=== PATIENT | female | born 1955 | race Caucasian/White ===

== ENCOUNTER 2023-05-18 10:24 | Outpatient (OUT) | payer MEDICARE, BC, OTHER, SELFPAY ==
[2023-05-18 10:46] LABS: Estimated Average Glucose 128 mg/dL; Glycohemoglobin A1C 6.1 % (4.5-6.2)
[2023-05-18 11:17] LABS: Eosinophils Absolute Auto 0.1 10^3/uL (0.0-0.7); Eosinophils Percent Auto 1.7 % (0.9-7.0); Hemoglobin 15.5 g/dL (12.0-16.0); Immature Granulocytes Abs Auto 0.01 10^3/uL (0.00-0.03); Immature Granulocytes Pct Auto 0.2 % (0.0-0.5); Lymphocytes Absolute Auto 0.5 10^3/uL (1.2-3.8); Mean Corpuscular HGB Conc 32.3 g/dL (29.9-35.2); Mean Corpuscular Volume 86.8 fL (81.0-99.0); Mean Platelet Volume 9.6 fL (9.5-13.5); Monocytes Absolute Auto 0.4 10^3/uL (0.3-0.8); Neutrophils Percent Auto 74.1 % (43.0-75.0); Platelet Count 264 10^3/uL (150-450); Red Blood Count 5.53 10^6/uL (4.20-5.40); Red Cell Distribution Width 14.6 % (11.0-15.0)
[2023-05-18 11:40] LABS: Alanine Aminotransferase 19 U/L (14-59); Albumin Level 3.6 g/dL (3.4-5.0); Alkaline Phosphatase 69 U/L (46-116); Anion Gap 12.3; Aspartate Amino Transferase 10 U/L (15-37); BUN Creatinine Ratio 12.5; Bilirubin Total 0.5 mg/dL (0.2-1.0); Calcium 10.2 mg/dL (8.5-10.1); Carbon Dioxide 28.4 mmol/L (21.0-32.0); Chloride 101 mmol/L (98-107); Chol HDL Ratio 4.1; Cholesterol 180 mg/dL (<=200); Estimated GFR (African America >60 (>=60); Estimated GFR (Non-African Ame >60 (>=60); Globulin 3.5 g/dL; Glucose 115 mg/dL (74-106); HDL Cholesterol 44 mg/dL (40-60); Potassium 4.7 mmol/L (3.5-5.1); Sodium 137 mmol/L (136-145); Thyroid Stimulating Hormone 1.518 uIU/mL (0.358-3.740); Total Protein 7.1 g/dL (6.4-8.2); Triglycerides 184 mg/dL (<=150); VLDL CHOLESTEROL 36.8 mg/dL
[2023-05-18 11:59] LABS: Free T4 1.46 ng/dL (0.76-1.46)
== END 2023-05-18 10:25 | disposition home or self-care (01) ==
LOC: LAB 10:24
PROVIDERS: PCP Family Medicine; Visit Provider Family Medicine
DX: I10 Essential (primary) hypertension (principal); R73.01 Impaired fasting glucose; E03.9 Hypothyroidism, unspecified; E83.52 Hypercalcemia
CPT/HCPCS: 36415; 80053; 80061; 83036; 83970; 84439; 84443; 85025

== ENCOUNTER 2024-01-10 11:34 | Outpatient (OUT) | payer MEDICARE, BC, OTHER, SELFPAY ==
[2024-01-10 12:19] LABS: Estimated Average Glucose 123 mg/dL; Glycohemoglobin A1C 5.9 % (4.5-6.2)
[2024-01-10 12:32] LABS: Thyroid Stimulating Hormone 1.183 uIU/mL (0.358-3.740)
[2024-01-11 16:10] LABS: Albumin 3.8 g/dL (2.9-4.4); Alpha-1-Globulin 0.2 g/dL (0.0-0.4); Alpha-2-Globulin 0.8 g/dL (0.4-1.0); Gamma Globulin 0.8 g/dL (0.4-1.8); Protein, Total 6.6 g/dL (6.0-8.5)
== END 2024-01-10 11:35 | disposition home or self-care (01) ==
LOC: LAB 11:34
PROVIDERS: PCP Family Medicine; Visit Provider Psychiatry & Neurology Neurology
DX: R26.89 Other abnormalities of gait and mobility (principal); R53.1 Weakness
CPT/HCPCS: 36415; 82607; 82746; 83036; 84155; 84165; 84443

== ENCOUNTER 2024-02-20 15:04 | Outpatient (OUT) | payer MEDICARE, BC, OTHER, SELFPAY ==
--- NOTE | 2024-02-20 | MR_ITS ---
[address] [address] Patient Name: CECI BURROWS MRN: [id number] date: 1955 Sex: F Assigned Patient Location: MRI Current Patient Location: Accession/Order Number: [id number] Exam Date: 02/20/2024 16:19 Report Date: 02/21/2024 07:22 At the request of: PRINCESS DOUGHERTY Procedure: MR cervical spine wo con EXAMINATION: MR cervical spine wo con HISTORY: Balance disorder R26.89, Ataxia R27.0, Weakness R53.1 COMPARISON: No relevant comparison available. TECHNIQUE: A variety of imaging planes and parameters were utilized for visualization of suspected pathology. FINDINGS: CRANIOCERVICAL AREA: Normal foramen magnum with no Chiari malformation. PARASPINAL AREA: Normal with no visible mass. BONES: Normal alignment with no acute fracture or spondylolisthesis. Mild to moderate diffuse degenerative spondylosis and facet osteoarthropathy CORD: Normal caliber, contour, and signal intensity. Other: Degenerative changes with cystic appearance of the left sternoclavicular joint CERVICAL DISC LEVELS: C2-C3: Moderate degenerative disc disease is present without visible neural impingement. C3-C4: Disc space narrowing and desiccation. Mild diffuse disc/osteophyte complex and facet osteoarthropathy. Narrowing of the central canal to 8.2 mm in AP dimension. Mild bilateral foraminal stenosis C4-C5: Disc desiccation. Bilateral facet osteoarthropathy. Central Canal narrowing down to 8 mm in AP dimension. Mild right and moderate left foraminal stenosis C5-C6: Moderate to severe disc space narrowing with endplate sclerosis. Moderate diffuse disc/osteophyte complex and facet osteoarthropathy. Narrowing of the central canal to 6.9 mm in AP dimension. Moderate bilateral foraminal stenosis C6-C7: Moderate to severe disc space narrowing with endplate sclerosis. Mild to moderate diffuse disc/osteophyte complex and facet osteoarthropathy. Central canal narrowing to 8 mm. No foraminal stenosis C7-T1:. Moderate disc space narrowing and desiccation. No central or foraminal stenosis MR/MR cervical spine wo con IMPRESSION: Moderate degenerative changes resulting in central and foraminal stenosis at multiple levels as detailed above with congenitally small central canal Electronically authenticated by: LEXIE Ulrich: 02/21/2024 07:22
--- OUTSIDE RECORDS SUMMARY | 2024-02-20 15:22 | XMS_ITS | CCD ---
Author Organization [facility] Care Team Providers Care Sports Editor Name Role Phone CLAY, DR CAMILLE Powell Attending Unavailable WILLIAMSON, DR CAMILLE Powell Consulting Unavailable WILLIAMSON, DR CAMILLE Powell Primary Care Unavailable WILLIAMSON, DR CAMILLE Powell Admitting Unavailable CAMILLE WILLIAMSON Primary Care Physician Camille Williamson Cam, Gwyn Spencer Attending Unavailable Garcia, Gwyn T Admitting Unavailable Garcia, Gwyn T Referring Unavailable Garcia, Gwyn T Attending Unavailable Garcia, Gwyn T Admitting Unavailable Garcia, Gwyn T Referring Unavailable Garcia, Gwyn T Attending Unavailable Garcia, Gwyn T Admitting Unavailable Garcia, Gwyn T Referring Unavailable GARCIA, GWYN T Referring Unavailable GARCIA, GWYN T Attending Unavailable GARCIA, GWYN T Referring Unavailable PRINCESS DOUGHERTY Attending Unavailable Allergies Allergy Classification Reported Allergen(s) Allergy Type Date of Onset Reaction(s) Facility (1 source) No Known Medication Allergies; Translations: [No Known Medication Allergies] Propensity to adverse reactions (disorder) [facility] Repository Medications Current Medications Medication Drug Class(es) Dates Sig (Normalized) Sig (Original) acetaminophen 325 mg / HYDROcodone bitartrate 7.5 mg oral tablet (1 source) Opioid Agonist Start: 08-30-2022 take 1 tablet by mouth every six hours for pain acetaminophen-hyd rocodone 325 mg-7.5 mg oral tablet 1 tab(s), Oral, q6hr for pain, Refill(s) 0 Start Date: 08/30/22 Status: Ordered acetaminophen 325 mg / oxyCODONE hydrochloride 5 mg oral tablet (1 source) Opioid Agonist Start: 08-26-2022 take 1-2 tablets by mouth every four hours as needed for pain Percocet 5 mg-325 mg oral tablet See Instructions, 50 tab(s), Refill(s) 0, take one to two every 4 hours as needed for knee replacement pain, [id number], 160, cm, 12/12/22 5:49:00 EST, Height/Length Dosing, 114.3, kg, 08/09/22 5:49:00 EST, Weight Dosing Start Date: 08/26/22 Status: Ordered aspirin 325 mg oral tablet (6 sources) Platelet Aggregation Inhibitor, Nonsteroidal Anti-inflammatory Drug Start: 08-26-2022 End: 09-25-2022 take 1 tablet by mouth once daily aspirin 325 mg Tab 325 mg = 1 tab(s), Oral, Daily, Start the day after knee replacement surgery, X 30 day(s), # 30 tab(s), Refills(s) 0, [id number] 160, cm, 08/09/22 5:49:00 EST, Height/Length Dosing, 114.3, kg, 08/09/22 5:49:00 EST, Weight Dosing Start Date: 08/26/22 Stop Date: 09/25/22 Status: Ordered take 1 tablet by mouth once odalys y Aspir-Low 81 MG 1 tablet Orally Once a day Active docusate sodium 100 mg oral capsule (1 source) Start: 08-26-2022 take 1 capsule by mouth twice daily Colace 100 mg Cap 100 mg = 1 cap(s), Oral, BID, # 20 cap(s), Refills(s) 0, [id number] 160, cm, 08/09/22 5:49:00 EST, Height/Length Dosing, 114.3, kg, 08/09/22 5:49:00 EST, Weight Dosing Start Date: 08/26/22 Status: Ordered fluticasone propionate 0.05 mg/actuat metered dose nasal spray (1 source) Corticosteroid Start: 2024 take 1 spray(s) nasal route once daily Fluticasone Propionate Active 2 SPRAY INTRANASAL Daily 2024 12:00am administer into each nostril levothyroxine sodium 0.137 mg oral tablet (15 sources) l-Thyroxine Start: 01-18-2024 take 1 tablet by mouth once daily in the morning Levothyroxine Active 0 .ROUTE .COMPLEX January 18, 2024 12:30pm TAKE 1 TABLET BY MOUTH EVERY DAY IN THE MORNING ON AN EMPTY STOMACH Start: 01-18-2024 End: 01-18-2024 take 137 ug by mouth once daily Levothyroxine Disconti nued 137 MCG PO Daily January 18, 2024 12:00am January 18, 2024 12:31pm Start: 08-06-2022 take 1 tablet by luis m once daily levothyroxine 137 mcg (0.137 mg) Tab 137 mcg = 1 tab(s), Oral, Daily, Refills(s) 0, Thyroid Start Date: 08/06/22 Status: Ordered take 1 tablet by luis m once daily in the morning Levothyroxine Sodium 137 MCG 1 tablet in the morning on an empty stomach Orally Once a day for 90 days Active 24 hr metoprolol succinate 25 mg extended release oral tablet (14 sources) beta-Adrenergic Pao Start: 01-18-2024 take 25 mg by mouth once daily Metoprolol Succinate Active 25 MG PO Daily January 18, 2024 12:00am Start: 08-30-2022 take 1 tablet by luis m once daily metoprolol 25 mg ER Tab 25 mg = 1 tab(s), Oral, Daily, High blood pressure Start Date: 08/30/22 Status: Ordered oxyCODONE hydrochloride 5 mg oral tablet (5 sources) Opioid Agonist take 1 tablet by mouth every six hours oxyCODONE HCl 5 MG 1 tablet as needed Orally every 6 hrs Active Completed/Discontinued Medications Medication Drug Class(es) Dates Sig (Normalized) Sig (Original) diclofenac sodium 75 mg delayed release oral tablet (5 sources) Nonsteroidal Anti-inflammatory Drug take 1 tablet by mouth every twelve hours Diclofenac Sodium 75 MG 1 tablet as needed Orally Twice a day Not-Taking 24 hr venlafaxine 75 mg extended release oral capsule (20 sources) Serotonin and Norepinephrine Reuptake Inhibitor Start: 12-19-2023 End: 12-20-2023 take 1 capsule by mouth once daily at mealtime Venlafaxine Discontinued 0 .ROUTE .COMPLEX December 19, 2023 12:59pm December 20, 2023 12:09pm TAKE ONE CAPSULE BY MOUTH ONCE DAILY WITH FOOD FOR 30 DAYS Start: 12-19-2023 End: 12-20-2023 take 75 mg by mouth once daily Venlafaxine Discontinue d 75 MG PO Daily December 20, 2023 12:09pm December 20, 2023 12:26pm Start: 10-15-2022 take 1 capsule by mo [facility] every twenty-four hours Effexor XR 150 MG 1 capsule with food Orally Once a day for 30 day(s) Sep, Active Start: 09-16-2022 take 1 capsule by [facility] every twenty-four hours Effexor XR 75 MG 1 capsule with food Orally Once a day for 30 day(s) Aug, Active Problems Problem Classification Problem Date Documented Date Episodic/Chronic Anxiety disorders (20 sources) Mixed anxiety and depressive disorder; Translations: [Other specified anxiety disorders] Chronic Cancer of breast (1 source) History of malignant neoplasm of breast 08-06-2022 Episodic Diabetes mellitus without complication (14 sources) Impaired fasting glucose; Translations: [Impaired fasting glycemia] Onset: 05-25-2022 Episodic Essential hypertension (19 sources) Essential (primary) hypertension; Translations: [Essential hypertension] Onset: 05-20-2022 Chronic Osteoarthritis (3 sources) Osteoarthritis of knee; Translations: [Unilateral primary osteoarthritis, right knee] Onset: 08-26-2022 Chronic Other circulatory disease (12 sources) Elevated blood-pressure reading without diagnosis of hypertension; Translations: [Elevated blood-pressure reading, without diagnosis of hypertension] Episodic Other ear and sense organ disorders (12 sources) Hearing loss; Translations: [Unspecified hearing loss, bilateral] Chronic Other ear and sense organ disorders (7 sources) Bilateral hearing loss; Translations: [Unspecified hearing loss, bilateral] Chronic Other ear and sense organ disorders (1 source) Unspecified hearing loss, bilateral Chronic Other non-traumatic joint disorders (12 sources) Pain in left knee; Translations: [Left knee pain] Episodic Other nutritional; endocrine; and metabolic disorders (12 sources) Body mass index 40+ - severely obese; Translations: [Body mass index (BMI) 40.0-44.9, adult] Chronic Other nutritional; endocrine; and metabolic disorders (1 source) Body mass index (BMI) 40.0-44.9, adult Chronic Other nutritional; endocrine; and metabolic disorders (3 sources) Hypercalcemia; Translations: [Hypercalcemia] Chronic Other nutritional; endocrine; and metabolic disorders (1 source) Hypercalcemia Chronic Otitis media and related conditions (13 sources) Non-suppurative otitis media; Translations: [Unspecified nonsuppurative otitis media, bilateral] Episodic Thyroid disorders (16 sources) Hypothyroidism, unspecified; Translations: [Hypothyroidism] Onset: 05-25-2022 08-06-2022 Chronic Results Test Name Value Interpretation Reference Range Facil ity Albumin [Mass/volume] in Ser um or Plasmaon 01-10-2024 Albumin [Mass/Vol] 3.8 g/dL 2.9-4.4 [facility] Glucose mean value [Mass/vol ume] in Blood Estimated from glycated hemoglobinon 01-10-2024 Average glucose Estimated from glycated hemoglobin (Bld) [Mass/Vol] 123 mg/dL [facility] - Chemistry and C hemistry - challengeon 01-10-2024 Cobalamin (Vitamin B12) [Mass/Vol] 359.0 pg/mL 193.0-986.0 [facility] TSH Qn 1.183 m[IU]/L 0.358-3.740 [facility] - Hematology and Cell countson 01-10-2024 HbA1c (Bld) [Mass fraction] 5.9 % 4.5-6.2 [facility] Comment on above: ADA RECOMMENDED LIMI T 4.0 - 6.0ADA THERAPEUTIC TARGET < 7.0ACTION SUGGESTED> 7.0 No Panel Informationon 01-09 Folate 13.70 ng/mL 8.60-58.90 [facility] Protein Electrophoresis M-Tu Not Observed g/dL Not Observed [facility] Protein Electrophoresis Note Comment . [facility] Comment on above: Protein electrophore sis scan will follow via computer,mail, or pottery kiln builder delivery.Performed at: [address] [id number] Director: Rylan Agustin PhD, Phone: [phone] Protein [Mass/volume] in Ser um or Plasmaon 01-10-2024 Protein [Mass/Vol] 6.6 g/dL 6.0-8.5 [facility] Serum globulin measurement ( mass/volume)on 01-10-2024 Globulin (S) [Mass/Vol] 2.8 g/dL 2.2-3.9 [facility] Serum or plasma albumin/glob ulin mass ratioon 01-10-2024 Albumin/Globulin [Mass ratio] 1.4 {ratio} 0.7-1.7 [facility] Serum or plasma alpha 1 glob ulin measurement by electrophoresis (mass/volume)on 01-10-2024 Alpha 1 globulin Elph [Mass/Vol] 0.2 g/dL 0.0-0.4 [facility] Serum or plasma alpha 2 glob ulin measurement by electrophoresis (mass/volume)on 01-10-2024 Alpha 2 globulin Elph [Mass/Vol] 0.8 g/dL 0.4-1.0 [facility] Serum or plasma beta globuli n measurement by electrophoresis (mass/volume)on 01-10-2024 Beta globulin Elph [Mass/Vol] 0.9 g/dL 0.7-1.3 [facility] Serum or plasma gamma globul in measurement by electrophoresis (mass/volume)on 01-10-2024 Gamma globulin Elph [Mass/Vol] 0.8 g/dL 0.4-1.8 [facility] Coding Summary.on 12-20-2022 Coding Summary. CD:[id number] Ww +PGhlYWQ+OX3ZPPRkA46zx GAksS5tU4TLULlWZuigVRD ZBSwASuCtlqKzTJ7xjWSxD XJu IC8+XK9rFULiOcwzaUOae5 X8lDO7Q07swr2tAXqivWO0 SEPhGrBdlorwv3xiePl3FQ cuNmluOyBt WSXhsC52MXU6rW20Vc49zW BxaPOap0wjbMn1HtUhLOOy SZO2oRquYFblq6PwHJSvA6 7ixKEqf2C0 QDHbhCmbbWKvUjZaqYG4nF 0aLMnuplypf2zghhvjDzx4 di19bJZbr2L6fKJ4I0Byps N4VXTylAHf ZeqhoVRFkM3uulibv4athp cqRlNxXIJaKZv9XTe4EZDu lRytWrZyUN99JQI5WSPzqw DdV4OlRJNp pKcbOvB6v2C1Yf8HS6EMQg viC1MDKRKTXMkewOP+PC90 lb59C9YrBiztAbp7UKFlHA R1zPM2xN1j DBOhBJlfb6Z3bAY3H3Blnh Ozve8cp0lqDVHcSPgoA61c xLIxl9P7DMAgaTT9UPZxhM whTuNndX53 Oyc+DRKtkInnx2IuDhfkl0 yvi8bvzFk3AlmdMIDlvfIh vAjwWUQ7x8SfZx1aEGAbxE I5kUL6zF3j EeOuGjV5NKcdV926ErTslY AqIczfX13oP3ViyVF+PHRy Fsr0WWZcjUjxNS1lA6LnKQ RpbmctbGVm kHbxDW2tRGAzhehuOXJxxU 4iFHPiV8n1CyUvMtA2VXat S4NuHYHrhdotHo57dM9qJe UhIyG6SBwp N2RjgiR6LPWwjARmTQjgGL X6J11ua7O5ZDLsTENlUMF4 fER8kR9gfAzswbgcmBIkeH sgdmVydGlj BInzHOikF964FLDefOrcGm NvZGluZyBEYXRlOiAgMDQv MjQvMjAyMzwvdGQ+PHRkIH J6hHjnZDQc qKTnXZvzLc5jqFqtcQbuEC 8mGGJqsdunNXLorR7fZQMp sKUsfJzeBW9hYIDqjjhyk3 54YoBqXPA1 JSAcuTRoB8MkrH3fDaBcLU NwCDDyW0LuhEFyIMuhS302 JCfkUmE8ZLDqgfWnH7QeXN FsaWduOiB0 r0B2Zl6Bx8NnjbcdY1SltO ScTaEjArsjTUk2L8WtMjch dHI+YE68TNPzFH76VBm6GT C6yExmJYhx VCMvX3MbiZ6qNnBmZWOwPQ RkOyc+PHRhYmxlIHdpZHRo QOppAJUqLkGiuCarTL4nQg 9yZGVyLWNv xWdidHMjVcTmb8vnOBJeDD hlJB8quLytE4ObbTJ4FJIl y6z9Ix14O48qY3NfnWF+PG TdvPX4aTM1 lT2uSyPsRkZ9EYgiY768Wr LlsGNxGzkxr8vgu1ginJx7 PlT2UYXdtkIuoFzxVNF8p3 JtUk70O05i IHdpZHRoPSIxNSUiIHZhbG bepp9tbG2pZq3+PGNvbCB3 cDD7gB6fVtCxMlZ1GKmiM4 49InRvcCIv Lbgjl3wsb3nqfRm5ThObUN CaurBjmYjwOSL3z9ImVu13 E1YfgRdjv3OnCfc1cr92xV Gfl5W7qXU2 A9AmVYEpouukqEWqrEnnGA 6rLJOixxvgBNBnxS3aNVAx G2q5SoHiKpW5QFdaC2Uery K5IDGouEBo EHOcsZKDvA1cevivv9qnxb ycIjFqDDYcDLw2SYn1XJFv fPxmQkJqWXI0VpR1PBZ3iC MhyA4dcIid xjadmE3nUga+YJW9fKXmyJ QXQW9qWtvtfCY+PHRkIHN0 lHlxRTaxSBLwrR3cLSBlK3 v9ZbWyQpY3 AWolP6GovwI0TJMbpRGwMN YjaOBMkA3vdfkpt4tuzehz QjUrKZLcFSh0KDz2RBVkmU duOiBsZWZ0 GjD4ZLB2kDKaiL1inLvdwl lqrV3gQye+QmlydGggRGF0 QKa0A0UtGcl4SDDsgOkkOX 0ncGFkZGlu Ua7axNkptZmxLL0vVYDipo xai326DzWsd5jlZCCymZLz CAytQUG2I95sx7K1NVIrPD TqGJV1sLY6 iV2dpIcwvrlatLKdgSzxst LjmOerHFtgSOsnE485QKKl pHwuMpZzNNu3I9HaLmx2IR RkfUisFH8l qIReSMaxMn8kfLubdXgoLY 6eSXIgewsqc956FqDnd5zb FVRbwANfXYuyUMG9G90io5 K3FAOdYMGb AON5xKY6hQ1lgXlreflxnF VmdDsgdmVydGljYWwtYWxp A334FBIjyPhbEcXftHh9H7 DuPus1FYIv dBeePU6iuLYeUBinBi4mmR vhvMhjVC8rRFEidwvou966 EvSut7auKWUrpNAlAQyfNT C2W41uz5L1 STShCEIoYHA0iQA0xU6jyM lnbjogbGVmdDsgdmVydGlj XHnaCOpxS659KCLtfOmsCo BhdGllbnQg LSziLQp5H3AtFwurdTZ+PC 78EQFyIJ04lSQnoTTnn4dj wEj3AsMoVUTqPFF4mPtkDF ugz5BaUIRp T51ryYGst1Y7ANFynZjziN WbTmHccTB8bG8zCQolaeww h0ewphzfSwinu7vcuh17bU 64N36tWFav ZHRoPSIzMCUiIHZhbGlnbj 8ctN7uEe7+ANOahEJ3hON1 kE5eIHXoIbP8HZdzS601Ia RvcCIvPjxj m5kxd7etkZo0OsB1WPTqte ImaWroTAK2p9BcOi79L91l IHdpZHRoPSIyMCUiIHZhbG thzz3niI6u Ii8+OVEtfCY0xRB3vP7dHi GiGtH0OJtiD668VuCadYIa HylkQ28dN8MfxHP+PHRyPj v8CATgtByh KO1bsYXqJNplTc5cRMR6Lr BiJgPoWLxsV1MtSVNnrqpv nnamhAT0NGOcBHProD49Eh 9udDogMTBw pKKIiW0izrpid5hdcllsMt QeGVQrBDe4NSo5RRShoHje BdDtEIB1KsN6UBN6cXLgcX 1hbGlnbjog tO7xH5LfMUZjaytjZu39pG 4eCyZeDrY4BZatTgs+Uk9I FrMKM4gVYscuC7LAXG56L9 UhNww5FUMp zLbhPZ1mlOMsJCqaNg3blA wsmCyxOY7cGDUphimmIWAq kW2sOZQsyOXnhQnaCK7pWZ Xobkfum352 WoJhQVX5HRFfbSGoA0MynN 6wMdDrQRZzTLUyK7AbtLBz FGgfX049VCeaMtY1QFSvlr BpE5OyXMWo oByvLzQ9q1N2Fy7nEi1qJA 7gSNY1EN03AT07zTSjf8X0 sCA6K2UmUDCnvjakhygfkX W8NDEyAPUe tU82mJIdIWqnJb9pn6Z0u2 64OWTpCBCdmD74Gj7vqSmh JEJzwPUHmE6hnfgho1ftjc ogIzAwMDAw DVs6KGg8TSZzaDshTuBjZY N6IiC7VDX5xKFqhT6ijQxz rmnxhL3vDxz+NjggWWVhcn L9I8LhKno0 CBGkwSyhWO7hwIMeIVyfFx 8puDytoZgmLU4tBXDqwufm AZApyV6fZNLepCVqyZtbQP 4wNTBpbjtm u882PxNjEDY4AKZuaJFdN3 ZbvR8wZpUmFMEyDKGjD0Mt eRUcBQdpA028YBaeYeA6EE YvujFlM9Ka CLZlwZunIaQ8o5E1Zw1ZPT 6ncWD5D3PdPqh7NOJfyRlq JZ4fiNMcPPgsFc2cfMcvpW nsNS3lHMPj ylqcEBSvsB7hZHXgcEUduB ebLY6eYYDbepjnz816QgFr KUL5ZFFqxOUmO3FpiR0mQp AjMDAwMDAw I4MxzUXqJRgoX030GZnoVp W3ZDUphhQdD6VhLQBrhEfe CyV1a0R1Qm7MfrEyvHjqyf G4U7YsIeqv dHI+UQ02FMJpLR13eMPdzJ Ied1elpBr8NtMtCSPfWIP6 yFnoQQklc3XmGEDpE17kjY Gde9G7QVCp iVrnxBQnHnNvdND4yH4uQY goibqby3huetnqZzynx5kr le23gE56O23dVZneVZHhBL IzMCUiIHZh yHtqyt3scB7mCp3+PGNvbC G9fOP0fX2ySsSeYlE3KYaj N557NuYrbGNrSzhhe7gza7 yonEd5AnRn YLLufrErnMmgGSY0c2IvCp 42K31xLQioUGVyBVJdMMNr UXUeyYieng2wfM4jBt7+PC 4mt3ovib92 wD61vZV+MKPzHWY0lKpjID qpEBThiH1kHNyrHrI7ADVj QnEgdF61iOKpGAtqYe7idC mmcTeuIA3d WDZemirrd489CdYna8yuBP IrvHMtEXywJDA6B26oz6Y3 YNTrAMHiSLZ4tVC4fL6hlG lnbjogbGVm dDsgdmVydGljYWwtYWxpZ2 97WOVfqMteBdXyzUIaX0pu zdRWNX6zHtcgtNM+PHRkIH A6eUjhPNas CLYviO4eGDDeZ0p8LlGjXb L8SDscO6MckfC0JOGvaAMn WNUykVCNjK4esiugp1rtre ogIzAwMDAw VQl6OQy4RUPjuOljWbDoVX X0XvD1OJG9fCDgaY8gpJkh apffjM6uZdl+RklOOjwvdG Q+PHRkIHN0 jBsaOVnbITUhuS6nQWGwY1 b4DkMoJkR1YChzO3DdacP3 JAXbwZUlVWNzqNVTyO6vvs qzw1mejnat CtOzXGWuRKl4ENw7QJKmiQ hoBmIdWSL5SyB8WME6lOFi fY1zmDxqjtsrfV9jXsu+TV JOOjwvdGQ+ LLDuLJH5dSxzVKjzCSXspX 9cHNHdQ6i6YlXeZbE8PQei A2UagsC6VVUfjNFvQJCipF RLsJ2wityf o1dfcsmvQaMuQXWePHi4ZL q6WXVdjKmqCuAqRIG1ZdR5 PIZ4bZGvkU7xlSqbfqyqqR 9wOyc+UGF5 WDM2TW19TK53Z8JkBckkqV FibGU+PHRhYmxlIHdpZHRo LTllIEAwDpRqiEaeWZ6cPd 9yZGVyLWNv bGxhcHNl (more content not included)... Normal [facility] IntraOperative Documentson 0 12-20-2022 IntraOperative Documents [id number] Normal [facility] Operative Reporton 3 Operative Report Patient: CECI SPEARS Age: 67 years Sex: Female : 1955 Associated Diagnoses: None Author: MD Margot, Andrew Browne Postoperative Information Date/ Time: 12/13/2022 09:00:00 Preoperative Diagnosis: Acute postoperative pain.. Postoperative Diagnosis: Acute postoperative pain. Procedure: Adductor Canal nerve block. Anesthesia Method: Local, Monitored anesthesia care. Performed by: Arun Londono CRNA. Medications: Midazolam 2mg. Complications: None. Notes: Procedure Nerve Block Block Type: Adductor canal block. Laterality: Left. Informed consent for anesthesia management: Anesthesia options discussed including nerve block, Description of the procedure, risks, benefits, and alternatives was provided, The patient's questions were addressed. Time out: Confirmed correct patient, procedure and site. Time: Date/Time 12/13/2022 0900. Indication: Block for postoperative pain management as requested by surgeon. Anesthesia Method: The patient remained awake and able to interact in a meaningful way throughout the procedure. Preparation: The patient was placed in the following position Supine, Continuous pulse oximetry applied, Using maximal sterile barrier technique per current [facility] guidelines including hand hygeine, Guidance (Ultrasound used to identify anatomical landmarks, Using sterile gel and probe covers, Permanent image retained), The site was prepped with ChloraPrep. Procedure: Anesthetic Agent See anesthesia record, Needle was inserted without pain or parasthesia in the conscious patient, Negative attempt at aspiration for blood, Periodic negative attempts at aspiration of blood were made as the local was injected, No pain or parathesia were elicited with injection of the anesthetic in the conscious patient. Complications: The patient tolerated the procedure as expected. , Per surgeon request for post-op pain management. Normal [facility] Comment on above: Result Comment: Elec tronically Signed By: MD Margot, Andrew Browne\.br\Date and Time Signed: 12/19/22 13:04 EDT IntraOperative Documentson 0 12-17-2022 IntraOperative Documents [id number] Normal [facility] Auto Diffon 12-14-2022 Basophils/100 WBC (Bld) 0.6 % Normal 0.0-2.0 [facility] Comment on above: Order Comment: Order Added by Discern Expert. Performed By: #### 2 [id number], 2750357, 8037361, [id number], 2079828, [id number] ####[facility] [id number] [place] [address] Basophils/Leukocyte s Auto (Bld) [Pure # fraction] 0.0 E9/L Normal 0.0-0.2 [facility] Comment on above: Order Comment: Order Added by Discern Expert. Performed By: #### 2 685327, 9440463, 9952720, 02866507, 8269351, 7048471 ####[address] [place] [address] Eosinophils/100 WBC (Bld) 1.0 % Normal 0.0-8.0 [facility] Comment on above: Order Comment: Order Added by Discern Expert. Performed By: #### 2 503116, 9779437, 7779713, 43939255, 3203783, 9045308 ####[address] [address] Eosinophils/Leukocy julia Auto (Bld) [Pure # fraction] 0.1 E9/L Normal 0.0-0.5 [facility] Comment on above: Order Comment: Order Added by Discern Expert. Performed By: #### 2 436972, 0433661, 1720626, 76988993, 2190875, 7799641 ####[address] [address] Lymphocytes/100 WBC (Bld) 11.2 % Low 14.0-50.0 [facility] Comment on above: Order Comment: Order Added by Discern Expert. Performed By: #### 2 129862, 7239971, 8830776, 08130563, 2055232, 2437337 ####[address] [address] Lymphocytes/Leukocy julia Auto (Bld) [Pure # fraction] 0.7 E9/L Low 1.0-4.0 [facility] Comment on above: Order Comment: Order Added by Discern Expert. Performed By: #### 2 307867, 5608525, 6080887, 13659161, 0147467, 0044651 ####[address] [address] Monocytes/100 WBC (Bld) 7.7 % Normal 4.0-14.0 [facility] Comment on above: Order Comment: Order Added by Discern Expert. Performed By: #### 2 293160, 8662931, 4752994, 62279834, 3802710, 4953466 ####[address] [place] [address] Monocytes/Leukocyte s Auto (Bld) [Pure # fraction] 0.5 E9/L Normal 0.2-1.0 [facility] Comment on above: Order Comment: Order Added by Discern Expert. Performed By: #### 2 126203, 0272202, 3876807, 76266075, 0128354, 3165106 ####[address] [place] [address] Neutrophils/100 WBC (Bld) 79.5 % High 36.0-75.0 [facility] Comment on above: Order Comment: Order Added by Discern Expert. Performed By: #### 2 565833, 4468971, 3181123, 67320599, 2044286, 4628253 ####[address] [address] Neutrophils/Leukocy julia Auto (Bld) [Pure # fraction] 5.1 E9/L Normal 2.0-7.5 [facility] Comment on above: Order Comment: Order Added by Discern Expert. Performed By: #### 2 242437, 3746478, 4577855, 38454528, 5450734, 3395213 ####[address] [place] [address] BUNon 12-14-2022 Urea nitrogen [Mass/Vol] 12 mg/dL Normal 5-21 [facility] Comment on above: Performed By: #### 2 537553, 6361762, 7109762, 74004969, 8917006, 6035899 ####[address] [place] [address] CBC w/ Auto Diffon Erythrocyte distribution width (RBC) [Ratio] 14.7 % High 10.9-14.2 [facility] Comment on above: Performed By: #### 2 838530, 8254991, 6798133, 60067775, 3520456, 1041570 #### [facility] [address] [place] [address] Hematocrit (Bld) [Volume fraction] 42.3 % Normal 34.0-46.0 [facility] Comment on above: Performed By: #### 2 351688, 1008100, 2151116, 09902883, 4757593, 9429776 #### [facility] [address] [place] [address] Hemoglobin (Bld) [Mass/Vol] 13.4 g/dL Normal 12.0-16.0 [facility] Comment on above: Performed By: #### 2 722171, 4686900, 2649636, 08827372, 0817183, 8492718 #### [facility] [address] [place] [address] MCH (RBC) [Entitic mass] 28.1 pg Normal 27.0-34.0 [facility] Comment on above: Performed By: #### 2 004489, 4899232, 1196203, 69523489, 1699116, 5502820 #### [facility] [address] [place] [address] MCHC (RBC) [Mass/Vol] 31.8 g/dL Normal 31.4-36.0 [facility] Comment on above: Performed By: #### 2 134972, 4092315, 5023566, 56192971, 0109525, 1692562 #### [facility] [address] [place] [address] MCV (RBC) [Entitic vol] 88.5 fL Normal 80.0-100.0 [facility] Comment on above: Performed By: #### 2 700823, 0193493, 4709713, 41912223, 4548627, 7059645 #### [facility] [address] [place] [address] Platelet mean volume (Bld) [Entitic vol] 7.3 fL Normal 6.4-10.8 [facility] Comment on above: Performed By: #### 2 132458, 7335146, 6621317, 29584961, 7084738, 9059672 #### [facility] [address] [place] [address] Platelets (Bld) [#/Vol] 193.0 E9/L Normal 150.0-500.0 [facility] Comment on above: Performed By: #### 2 552494, 2335603, 4420781, 87103937, 1775578, 1258090 #### [facility] [address] [place] [address] RBC (Bld) [#/Vol] 4.8 E12/L Normal 4.3-5.9 [facility] Comment on above: Performed By: #### 2 315454, 3751061, 1561014, 85844523, 6589071, 8551150 #### [facility] [address] [place] [address] WBC corrected for nucl RBC Auto (Bld) [#/Vol] 6.4 E9/L Normal 4.0-11.0 [facility] Comment on above: Performed By: #### 2 142427, 2448441, 7764796, 42070764, 2001760, 6128415 #### [facility] [address] [place] [address] Consent for Anesthesiaon Consent for Anesthesia [id number]#1. 00CD:127 Normal [facility] Creatinineon 12-14-2022 Creatinine [Mass/Vol] 0.7 mg/dL Normal 0.5-1.3 [facility] Comment on above: Performed By: #### 2 609060, 7655768, 3949741, 63516652, 4561336, 9249312 ####[facility] [address] [place] [address] Discharge Instructionson Discharge Instructions [id number]#1. 00CD:127 Normal [facility] Discharge Note-Nursingon Discharge Note-Nursing CECI SPEARS :1955 Visit Date:12/13/2022 Inpatient Discharge Instructions Your Care Team Admitting Physician - Gwyn Garcia DO Referring Physician - Gwyn Garcia DO Reason for Your Visit Knee replacement Your Diagnosis Localized osteoarthritis of left knee Tests Performed ABO/Rh Antibody Screen Automated Diff BUN CBC w/ Auto Diff Creatinine eGFR Lytes Urinalysis XR Knee 1 or 2 Views Left This Is Your Medications List acetaminophen-oxycodon e (Percocet 5 mg-325 mg oral tablet) acetaminophen-oxycodon e (Percocet 5 mg-325 mg oral tablet) aspirin (aspirin 325 mg Tab) docusate (Colace 100 mg Cap) docusate (Colace 100 mg Cap) levothyroxine (levothyroxine 137 mcg (0.137 mg) Tab) metoprolol (metoprolol 25 mg ER Tab) [Image Removed: STOP]Stop taking these medications acetaminophen-hydrocod one (acetaminophen-hydroco done 325 mg-7.5 mg oral tablet) Procedure History Total knee replacement (08/30/2022), Breast lumpectomy, section, Cholecystectomy, Myringotomy. Discharge Vitals Temperature (Oral) 37.1 ?C Heart Rate (Apical) 85 Respiratory Rate 18 Blood Pressure 180/94 What to do next Instructions From Your Doctor Event Name Event Result Discharge Activity Ambulate as tolerated, Arrange for a responsible adult supervision for 24 hours, Expect mild pain, Expect minimal amount of drainage and/or bleeding, Do not lift more than 5 lbs Discharge Restrictions No driving, Do not operate machinery or tools, Do not make important decisions for 24 hours, Do not drink alcoholic beverages for 24 hours Discharge Diet(s) Regular, Drink liquids and eat a light meal Call Your Doctor For Persistent or heavy bleeding, Temperature above 101.5 degrees, Redness, swelling, or pus at operative site, Severe pain at the operative site, Persistent vomiting Wound Care Remove dressing as instructed Remove Dressing On Post-op day 10 Pharmacy Information [facility] [place] Discharge Instructions Discharge Instructions New Follow Up Appointments after Discharge Follow Up with Gwyn Garcia When: 01/12/2023 09:30 AM EDT Comments: Keep scheduled appointment Where: [address] [place] [phone] Business (1) Follow Up with CAMILLE WILLIAMSON When: Comments: No PCP appointment required for surgery patient. Please follow up with ORTHO. Thank you! Where: [address] [place] [address]- [facility] [place] ([place]) Medications What How Much When Why Instructions Next Dose Unchanged acetaminophen-oxycodon e (Percocet 5 mg-325 mg oral tablet) See instructions Localized osteoarthritis of left knee Take one to two every 4 hours as needed for pain from knee surgery Pickup at [facility]/pharmacy #[id number] NEEDED FOR PAIN, AFTER 1215 PM ON 12/14 Unchanged aspirin (aspirin 325 mg Tab) 1 Tablets By Mouth Every day Duration: 30 Days Start the day after knee surgery Pickup at [facility]/pharmacy #[id number] 12/15 @ 9 AM Unchanged docusate (Colace 100 mg Cap) 1 Capsules By Mouth 2 times a day Pickup at [facility]/pharmacy #[id number] 12/14 @ 9 PM Unchanged levothyroxine (levothyroxine 137 mcg (0.137 mg) Tab) 1 Tablets By Mouth Every day 12/15 @ 7 AM Unchanged metoprolol (metoprolol 25 mg ER Tab) 1 Tablets By Mouth Every day 12/15 @ 9 AM Pharmacy Information [facility]/pharmacy #[id number]: [address], [place] [id number] [phone] What How Much When Comments Stop Taking acetaminophen-hydrocod one (acetaminophen-hydroco done 325 mg-7.5 mg oral tablet) 1 Tablets By Mouth Every 6 hours as needed for for pain Test Results CBC BMP WBC: 6.4 E9/L (12/14/22 05:13:00) BUN: 12 mg/dL (12/14/22 05:13:00) RBC: 4.8 E12/L (12/14/22 05:13:00) Creatinine: 0.7 mg/dL (12/14/22 05:13:00) HGB: 13.4 gm/dL (12/14/22 05:13:00) Sodium Lvl: 134 mmol/L Low (12/14/22 05:13:00) Hct: 42.3 % (12/14/22 05:13:00) Potassium Lvl: 3.5 mmol/L (12/14/22 05:13:00) MCV: 88.5 fL (12/14/22 05:13:00) Chloride: 101 mmol/L (12/14/22 05:13:00) MCH: 28.1 pg (12/14/22 05:13:00) CO2: 27 mmol/L (12/14/22 05:13:00) MCHC: 31.8 gm/dL (12/14/22 05:13:00) AGAP: 10 mEq/L (12/14/22 05:13:00) RDW: 14.7 % High (12/14/22 05:13:00) Platelet: 193 E9/L (12/14/22 05:13:00) MPV: 7.3 fL (12/14/22 05:13:00) Allergies No Known Medication Allergies Devices Implanted/Removed This Visit Notice: You have devices implanted this visit that may not be MRI compatible. Implanted KNEE TOTAL ARTHROPLASTY Knee L ATTUNE KNEE SYSTEM FEMORAL POSTERIOR STABILIZED SIZE 5 LEFT CEMENTED 12/13/2022 ATTUNE KNEE SYSTEM TIBIAL BASE FIXED BEARING SIZE 5 CEMENTED 12/13/2022 ATTUNE PATELLA MEDIALIZED DOME 35MM CEMENTED AOX 12/13/2022 ATTUNE TIBIAL INSERT FIXED BEARING POSTERIOR STABILIZED SIZE 5 8MM AOX 12/13/2022 CEMENT SIMPLEX PLAIN VISCOSITY HIGH [6194-1-010] 12/13/2022, Unknown - RODDY: {[id number]{[id number] CEMENT SIMPLEX PLAIN (more content not included)... Normal [facility] IntraOperative Documentson 0 12-14-2022 IntraOperative Documents [id number]#1. 00CD:127 Normal [facility] Lyteson 12-14-2022 Anion gap [Moles/Vol] 10 mmol/L Normal 6-16 [facility] Comment on above: Performed By: #### 2 [id number], 0064281, 0189212, 11963501, 2269048, 3100566 ####[facility] [address] [place] [address] Chloride [Moles/Vol] 101 mmol/L Normal 101-111 [facility] Comment on above: Performed By: #### 2 703721, 5227440, 6094140, 68177948, 7960038, 0713134 ####[facility] [address] [place] [address] CO2 [Moles/Vol] 27 mmol/L Normal 21-31 [facility] Comment on above: Performed By: #### 2 392726, 4294097, 7178626, 85744899, 7091772, 9292825 ####[facility] [address] [place] [address] Potassium [Moles/Vol] 3.5 mmol/L Normal 3.5-5.3 [facility] Comment on above: Performed By: #### 2 783952, 7192335, 1019246, 54965016, 4473913, 9813106 ####[facility] [address] [place] [address] Sodium [Moles/Vol] 134 mmol/L Low 135-145 [facility] Comment on above: Performed By: #### 2 067704, 2521350, 1585942, 56011779, 7981078, 9944925 ####[facility] [address] [place] [address] Patient Education - Texton 0 12-14-2022 Patient Education - Text [place], [place] [facility] DISCHARGE INSTRUCTIONS TOTAL KNEE ARTHROPLASTY INCISION CARE: Mepilex dressing can get wet with showers. Please remove 10 days after surgery per instruction sheet. If poly present, please coordinate removal 21 days after surgery with office staff. Please notify the office if any increase in redness, tenderness, drainage, fever, or wound separation is noted beyond this point. MEDICATIONS: You may resume your home medications at the time of discharge. Aspirin 325 mg EC oral once a day for 4 weeks for blood clot prevention with meals. Please notify your doctor if you have a stomach sensitivity to Aspirin or history of previous stomach ulcers. Pain medication has been prescribed as well. You may continue to use the pain medication every four hours as needed. Any narcotic pain medication can cause side effects including stomach upset, constipation, or light-headedness. You should not drive or operate machinery, or use alcohol while using the narcotic pain medication. You should not use other pain medications with this prescription pain medication unless further directed by your physician. PHYSICAL THERAPY: Continue the range of motion and strengthening exercises initiated in Physical Therapy in the hospital. [facility] Discharge Instructs for TKA Page 2 Physical Therapy Cont. Continue weight bearing, as ordered, to the operated knee for four to six weeks as directed in Physical Therapy, or until your strength is improved and Physical Therapy will then allow you to progress to full weight. This will be with the use of a walker or crutches initially. Assistive devices can be weaned or modified with physical therapy Physical therapy as begun in the hospital will continue at home, possible with the farm assistant of Home Health Physical Therapy or in the hospital as an outpatient. When you have become independent with the physical therapy program, this will then be discontinued as a supervised program and you will be instructed to continue the physical therapy exercises at home. Your exercises are ribera to successful rehabilitation. You should gain full extension first, hopefully before hospital discharge, then continue to do the exercises to maintain this, and gain 90 degrees flexion by one month post-op. Do the exercises daily, twice if preferred. DRIVING: Please do not drive for 4-6 weeks pending therapy progress. Driving too soon, you are considered an impaired hammer driver, and 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 It is therefore advised not to drive until after your first office visit following surgery FOLLOW-UP OFFICE VISIT: __ Gwyn Garcia, DO [facility] [address] [place] [address] Reviewed: 12-04 aspirin (oral) ( pir in) Arthritis Pain, Aspi-Cor, Aspir-Low, Ivy Plus, Durlaza, Ecotrin, Miniprin, Vazalore What is the most important information I should know about aspirin? Aspirin can cause Mark's syndrome, a serious and sometimes fatal condition in children. What is aspirin? Aspirin is a salicylate (mm-BBG-br-ate) that is used to treat pain, and reduce fever or inflammation. Aspirin is sometimes used to treat or prevent heart attacks, strokes, and chest pain (angina). Aspirin should be used for these conditions only under the supervision of a doctor. Aspirin may also be used for purposes not listed in this medication guide. What should I discuss with my healthcare provider before taking aspirin? Using aspirin in a child or teenager with flu symptoms or chickenpox can cause a serious or fatal condition called Mark's syndrome. You should not use aspirin if you are allergic to it, or if you have: ?? a recent history of stomach or intestinal bleeding; ? a bleeding disorder such as hemophilia; or ? if you have ever had an asthma attack or severe allergic reaction after taking aspirin or an NSAID (non-steroidal anti-inflammatory drug). Tell your doctor if you have ever had: ?? asthma or seasonal allergies; ? stomach ulcers; ? liver disease; ? kidney disease; ? a bleeding or blood clotting disorder; ? gout; or ? heart disease, high blood pressure, or congestive heart failure. Taking aspirin during late may cause bleeding in the mother or the baby during delivery. Tell your doctor if you are or plan to become . You should not breastfeed while using this medicine. How should I take aspirin? Use exactly as directed on the label, or as prescribed by your doctor. Always follow directions on the medicine label about giving aspirin to a child. Take with food if aspirin upsets your stomach. You must chew the chewable tablet before you swallow it. Do not crush, chew, break, or open an enteric-coated or delayed/extended-relea se pill. Swallow it whole. Tell your doctor if you have a planned surger (more content not included)... Normal [facility] Preoperative Documentson Preoperative Documents [id number]#1. 00CD:127 Normal [facility] Progress Note-Physicianon Progress Note-Physician Patient: CECI SPEARS Age: 67 years Sex: Female : 1955 Associated Diagnoses: None Author: Gwyn Garcia DO Chief Complaint Total Knee Arthroplasty POD #1, sleepy this morning but states she feels fine. Up to chair yesterday. Review of Systems Constitutional: No fever, No chills. Respiratory: No shortness of breath. Cardiovascular: No chest pain. Psychiatric: Negative. Health Status Allergies: Allergic Reactions (All) No Known Medication Allergies Problem list: All Problems Knee osteoarthritis / SNOMED CT 657303916 / Confirmed Hypothyroid / SNOMED CT 13803163 / Confirmed At risk for falls / SNOMED CT 874413260 / Possible Problem added when Risk for Falls Careplan was initiated. Physical Examination Gastrointestinal: Soft, Non-tender. Musculoskeletal Mobility/ gait: requires assistance. Lower extremity exam: Swelling as expected. Supple calves.. AROM-PROM limited due to dressing and pain.. Neurologic: Alert, Oriented, Normal sensory, Normal motor function. Psychiatric: Appropriate mood & affect. Review / Management Radiology results: Xray in Recovery Room shows stable position and alignment.. Impression and Plan Diagnosis POD #1 Left TKA, obesity, HTN, Hypothyroidism. Orders Continue mechanical and pharmacologic DVT prophylaxis. Analgesics. PT and OT services. Discharge planning with d/c home today with [facility] rehab.. Normal [facility] Comment on above: Result Comment: Elec tronically Signed By: Gwyn Garcia DO\.br\Date and Time Signed: 12/14/22 06:58 EDT eGFRon 12-14-2022 GFR/1.73 sq M.predicted among blacks MDRD (S/P/Bld) [Vol rate/Area] mL/min/{1.73_m2} Normal >=59 [facility] Comment on above: Order Comment: Order added by Discern Expert. Result Comment: eGFR is race adjusted. AA=. Performed By: #### 2 494542, 4121436, 2845711, 06877974, 9909642, 7537666 ####[facility] [address] [place] [address] GFR/1.73 sq M.predicted among non-blacks MDRD (S/P/Bld) [Vol rate/Area] mL/min/{1.73_m2} Normal >=59 [facility] Comment on above: Order Comment: Order added by Discern Expert. Result Comment: Music Video Director taylor kidney disease could be indicated at eGFR's of less than 60 mL/min/1.73m2. Kidney failure is indicated at less than 15 mL/min/1.73m2. Performed By: #### 2 585692, 5640138, 0336205, 92508337, 2511585, 8499769 ####[facility] [address] [place] [address] ABO/Rhon 12-13-2022 ABO/Rh Positive Invalid Interpretation Code [facility] Comment on above: Performed By: #### 2 361528, 5570638, 64516310, 6091754, 1320732, 8643997 #### [facility] [address] [place] [address] ABO/Rh History Checkon 12-13 ABO/Rh History Check Verified Hx Blood Type Normal [facility] Comment on above: Performed By: #### 2 786227, 6639562, 36130757, 4281047, 3427534, 9590279 #### [facility] [address] [place] [address] ABSCon 12-13-2022 ABSC Gel Interp Negative Normal [facility] Comment on above: Performed By: #### 2 437619, 8678151, 44727829, 5579564, 0019504, 0888192 #### [facility] [address] [place] [address] Blood Bank ID#on 12-13-2022 BBID# [id number] Invalid Interpretation Code [facility] Comment on above: Performed By: #### 2 963541, 5393603, 29512019, 9246426, 6419482, 1705960 #### [facility] [address] [place] [address] Consent for Treatmenton 11-27 Consent for Treatment [id number]#1.0 0CD:127 Normal [facility] H&P Updateon 12-13-2022 H&P Update [id number]#1.0 0CD:127 Normal [facility] Interdisciplinary Note - Arabella n 12-13-2022 Interdisciplinary Note - OT OT six clicks score: 18/24=home with ortho 360. Pt completes ADL functional transfers mod A x2 at time of eval with slow pacing. Pt has necessary DME for safety. Plan is to return tomorrow to review full body dressing prior to discharge home. Normal [facility] Main OR Intraoperative Recor don 12-13-2022 Main OR Intraoperative Record IntraOp Document Type FT Summary Primary Physician: Gwyn Garcia DO Finalized Date/Time: 12/13/22 11:05:10 Pt. Name: CECI SPEARS/Sex: 1955 Female Med Rec #: [id number] Physician: Gwyn Garcia DO Financial #: [id number] Pt. Type: A Room/Bed: [facility] Admit/Disch: 12/13/22 06:46:46 - Institution: Case Times FT Entry 1 Patient Times In Room 12/13/22 09:31:00 Out Room 12/13/22 11:02:00 Procedure Times Start 12/13/22 10:05:00 Stop 12/13/22 10:54:00 Anesthesia Times Start 12/13/22 09:31:00 Stop 12/13/22 11:02:00 Block Timeout w12/13/22 09:25:00 Anesthesia Last Modified By: Ranjit BAHENA, Linda Calderon 12/13/22 11:01:59 General Comments: BLOCK DONE BY Tammy LONDONO CRNA AT 2531-4531, ASSISTED BY Deena ACOSTA RN; HR= 65, O2= 99%; SPINAL DONE BY Tammy LONDONO CRNA AT 0942 -Clarence LOBATO RN Case Attendance FT Entry 1 Entry 2 Entry 3 Case Attendee Jackie ROSENBERG, Gwyn Herrera DO, CST, Liane E Role Performed CHET Surgeon - Primary CPR AMBULANCE DRIVER/SA Time In 12/13/22 09:31:00 12/13/22 09:31:00 12/13/22 09:31:00 Time Out 12/13/22 11:02:00 12/13/22 10:51:00 12/13/22 11:02:00 Procedure KNEE TOTAL KNEE TOTAL KNEE TOTAL ARTHROPLASTY(Left) ARTHROPLASTY(Left) ARTHROPLASTY(Left) Comments DR. KC SUPERVISING Last Modified By: Ranjit RN, Linda Lobato RN, Linda Lobato RN, Linda Lawler P 12/13/22 Nuris P 12/13/22 Nuris P 12/13/22 11:02:00 11:02:00 11:02:00 Entry 4 Entry 5 Entry 6 Case Attendee Ranjit BAHENA, Dennis Irwin, Luci Calderon Role Performed Mail List Processor - Primary Scrub - Primary Staff - Other Time In 12/13/22 09:31:00 12/13/22 09:31:00 12/13/22 09:31:00 Time Out 12/13/22 11:02:00 12/13/22 11:02:00 12/13/22 11:02:00 Procedure KNEE TOTAL KNEE TOTAL KNEE TOTAL ARTHROPLASTY(Left) ARTHROPLASTY(Left) ARTHROPLASTY(Left) Comments 2ND SCRUB Last Modified By: Ranjit RN, Linda Lobato RN, Linda Lobato RN, Linda Lawler P 12/13/22 Nuris P 12/13/22 Nuris P 12/13/22 11:02:00 11:02:00 11:02:00 Entry 7 Case Attendee Erick Oakes RN Role Performed Staff - Other Time In 12/13/22 09:31:00 Time Out 12/13/22 10:49:00 Procedure KNEE TOTAL ARTHROPLASTY(Left) Comments 3RD SCRUB Last Modified By: Ranjit BAHENA, Linda Calderon 12/13/22 11:02:00 Perioperative Protocols FT Pre-Care Text: Implements protective measures prior to operative or invasive procedure, confirms identity before the operative or invasive procedure, verifies operative procedure, surgical site, and laterality Entry 1 Procedure(s) KNEE TOTAL Patient Identity Birthday, ID Band ARTHROPLASTY(Left) Verified (select at Check, Patient least 2): Participation Consents / H and P Anesthesia Consent, Operative Site Present Verified HandP, Surgery/Procedure Marking Verified Consent, Transfusion Consent Surgical Site Yes Laterality Verified Yes Verified Procedure Verified Yes Correct Patient Yes Position Verified Availability Equipment, Implant, Prep Dry n/a Verified (If Medication Applicable) PreOp Antibiotic Yes Time Out Gwyn Garcia DO, Given Participants Arun Londono CRNA, Jay LAGOS, Magui Powell, Ranjit BAHENA, Linda Calderon, Dennis Goff, Luci Catalan, Violette BAHENA, Erick Chester Time Out Complete 12/13/22 10:02:00 Outcomes Met? Yes Last Modified By: Linda Lobato RN 12/13/22 10:14:33 Post-Care Text: The patient is free from signs and symptoms of injury caused by extraneous objects Allergy Information FT Pre-Care Text: Verifies allergies Entry 1 Allergies Reviewed? Yes Allergies Reviewed Self/Patient With Outcomes Met? Yes Last Modified By: Linda Lobato RN 12/13/22 10:14:50 Post-Care Text: The patient received appropriate medication(s) safely administered during the perioperative period Surgical Procedures FT Entry 1 Procedure Description Procedure KNEE TOTAL ARTHROPLASTY Modifiers Left Surgeon Description LEFT TOTAL KNEE ARTHROPLASTY COMPOUNDED BY OBESITY Primary Procedure Yes Primary Surgeon Gwyn Garcia DO Start 12/13/22 10:05:00 Stop 12/13/22 10:54:00 Anesthesia Type General Surgical Service Orthopedics Wound Class 1 - Clean Last Modified By: Linda Lobato RN 12/13/22 10:54:16 General Case Data FT Pre-Care Text: Classifies surgical wound, implements aseptic technique, initiates traffic control Entry 1 Case Information OR OR 7 FT Case Level Level 6 Wound Class 1 - Clean Specialty Orthopedics Preop Diagnosis M17.12 - LEFT KNEE Postop Same As Preop Yes OSTEOARTHRITIS Postop Diagnosis M17.12 - LEFT KNEE Outcomes Met? Yes OSTEOARTHRITIS Last Modified By: Linda Lobato RN 12/13/22 10:15:58 Post-Care Text: The patient is free from signs and symptoms of infection Skin Assessment (Pre Procedure) FT Pre-Care Text: Implements protective measures to prevent skin/ tissue injury due to thermal o (more content not included)... Normal [id number]\.br\ Usage Data FT \.br\ Implant Site Knee L Knee L Knee L\.br\ Implant Site Comment \.br\ Quantity 1 1 1\.br\ Implant/Explant Date \.br\ Implanted By Gwyn Garcia DO, DO, Michael T Powers DO, Michael T\.br\ Explant Reason \.br\ Biological Implants \.br\ Biological Source \.br\ Donor Number \.br\ MR Classification Unknown Unknown\.br\ Temperature \.br\ Reconstitution \.br\ Method \.br\ Outcomes Met? Yes Yes Yes\.br\ Metal Fabricating Inspector Model \.br\ Number \.br\ Last Modified By: Ranjit RN, Linda Lobato RN, Linda Lobato RN, Linda\.br\ Nuris P 12/13/22 Nuris P 12/13/22 Nuris P 12/13/22\.br\ 09:07:12 09:07:12 10:36:04\.br\.b r\ Entry 4 Entry 5 Entry 6 \.br\ Procedure KNEE TOTAL KNEE TOTAL KNEE TOTAL\.br\ ARTHROPLASTY(Lef t) ARTHROPLASTY(Lef t) ARTHROPLASTY(Lef t)\.br\ Implant/Explant Implant Implant Implant\.br\ Implant \.br\ Identification FT \.br\ Description ATTUNE KNEE SYSTEM ATTUNE TIBIAL INSERT ATTUNE KNEE SYSTEM\.br\ FEMORAL POSTERIOR FIXED BEARING POSTERIOR TIBIAL BASE FIXED\.br\ STABILIZED SIZE 5 LEFT STABILIZED SIZE 5 8MM BEARING SIZE 5 CEMENTED\.br\ CEMENTED AOX\.br\ Serial Number \.br\ Lot Number [id number]\.br\ Load Number \.br\ Metal Fabricating Inspector DEPUY DEPUY DEPUY\.br\ Catalog ?# [id number]\.br\ Size SIZE 5 LEFT CEMENTED SIZE 5 8MM AOX SIZE 5 CEMENTED\.br\ Expiration Date 03/28/32 08/28/26 04/28/32\.br\ Manufactured Date \.br\ Materials \.br\ Unique Device \.br\ Identifier (RODDY) \.br\ Human Readable \.br\ Barcode \.br\ Machine Readable \.br\ Barcode \.br\ Usage Data FT \.br\ Implant Site Knee L Knee L Knee L\.br\ Implant Site Comment \.br\ Quantity 1 1 1\.br\ Implant/Explant Date \.br\ Implanted By Cam QUEVEDO, Gwyn Garcia DO, Gwyn Garcia DO, Gwyn Spencer\.br\ Explant Reason \.br\ Biological Implants \.br\ Biological Source \.br\ Donor Number \.br\ MR Classification \.br\ Temperature \.br\ Reconstitution \.br\ Method \.br\ Outcomes Met? Yes Yes Yes\.br\ Metal Fabricating Inspector Model \.br\ Number \.br\ Last Modified By: Ranjit BAHENA, Linda Lobato RN, Linda Lobato RN, Linda\.br\ Nuris P 12/13/22 Nuris P 12/13/22 Nuris P 12/13/22\.br\ 10:36:04 10:36:04 10:36:04\.br\ Post-Care Text: \.br\ The patient is free from signs and symptoms of injury caused by extraneous objects\.br\.br \ Cultures & Specimens FT \.br\ Pre-Care Text: \.br\ Manages specimen handling and disposition Manages culture specimen collection\.br\ Entry 1 \.br\ Cultures Ordered n/a Specimens Ordered Yes\.br\ Specimen Disposition Designated OR Area\.br\ Frozen Section Times \.br\ Outcomes Met? Yes\.br\ Last Modified By: Linda Lobato RN\.br\ Nuris P 12/13/22\.br\ 10:21:54\.br\ Post-Care Text: \.br\ The patient is free from signs and symptoms of injury caused by extraneous objects The patient is free from\.br\ signs and symptoms of infection\.br\ General Comments: \.br\ SPECIMEN: LEFT KNEE BONE AND SOFT TISSUE -V. SHRUTI LOBATO\.br\. br\ Temperature Control \.br\ Entry 1 \.br\ Temperature Control MISTRAL FORCED AIR Quantity 1\.br\ Aid WARMING SYSTEM UNIT\.br\ Fluid/[place] Unit Mistral warming system Setting 43/HIGH\.br\ Body Site Upper anterior torso\.br\ Last Modified By: Linda Lobato RN\.br\ Nuris P 12/13/22\.br\ 10:22:09\.br\.b r\ Sign Out FT \.br\ Entry 1 \.br\ Before Patient \.br\ Leaves OR \.br\ Nurse verbally Yes Nurse verbally Yes\.br\ confirms with the confirms with the \.br\ team the name of team that \.br\ the procedure(s) instrument, sponge, \.br\ recorded and needle counts \.br\ are correct (or N/A) \.br\ Nurse verbally Yes Nurse verbally Yes\.br\ confirms with the confirms with the \.br\ team how the team whether there \.br\ specimen is labeled are any equipment \.br\ (including patient problems to be \.br\ name), if applicable addressed \.br\ Sign Out Complete 12/13/22 10:51:00\.br\ Last Modified By: Linda Lobato RN\.br\ Nuris Calderon 12/13/22\.br\ 10:53:28\.br\.b r\ Case Comments \.br\ \.br\.br\ Finalized By: Linda Lobato RN\.br\.br\ Document Signatures \.br\ Signed By: \.br\ Linda Lobato RN 12/13/22 11:05 [facility] Main OR PACU I Recordon 11-27 Main OR PACU I Record PACU Phase I Document Type FT Summary Primary Physician: Gwyn Garcia DO Finalized Date/Time: 12/13/22 13:11:19 Pt. Name: CECI SPEARS/Sex: 1955 Female Med Rec #: [id number] Physician: Gwyn Garcia DO Financial #: [id number] Pt. Type: I Room/Bed: [place] [address] Admit/Disch: 12/13/22 06:46:46 - Institution: Case Times PACU I FT Pre-Care Text: Identifies barriers to communication and implements measures to provide psychological support Develops individualized plan of care, and ensures continuity of care Maintains patient's dignity and privacy, and maintains patient confidentiality Identifies and reports philosophical, cultural, and spiritual beliefs and values Identifies individual values and wishes concerning care Implements aseptic technique, and administers prescribed antibiotic therapy and immunizing agents as ordered Evaluates postoperative tissue perfusion Implements thermoregulation measures, and monitors body temperature Evaluates postoperative respiratory status Evaluates postoperative cardiac status Evaluates postoperative neurological status Assesses pain control, collaborated in initiating patient-controlled analgesia and implements alternative methods of pain control Verifies allergies, administers prescribed medications and solutions, evaluates response to medications Entry 1 In PACU I 12/13/22 11:03:00 Discharge from PACU 12/13/22 12:05:00 I Outcomes Met? Yes Last Modified By: Rachel Shaver I 12/13/22 13:11:03 Post-Care Text: The patient demonstrates knowledge of the expected response to the operative or invasive procedure The patient's care is consistent with the individualized perioperative plan of care The patient's right to privacy is maintained The patient's value system, lifestyle, ethnicity, and culture are considered, respected, and incorporated into the perioperative plan of care The patient participates in decisions affecting his or her perioperative plan of care The patient is free from signs and symptoms of infection The patient has wound/tissue perfusion consistent with or improved from baseline levels established preoperatively The patient is at or returning to normothermia at the conclusion of the immediate postoperative period The patient's respiratory function is consistent with or improved from baseline levels established preoperatively The patient's cardiovascular status is consistent with or improved from baseline levels established preoperatively The patient's cardiovascular status is consistent with or improved from baseline levels established preoperatively The patient demonstrates and/or reports adequate pain control throughout the perioperative period The patient received appropriate medication(s), safely administered during the perioperative period Acuity Level PACU I FT Entry 1 Start Time 12/13/22 11:03:00 Stop Time 12/13/22 12:05:00 Acuity Level Acuity Level I Last Modified By: Rachel Shaver I 12/13/22 13:11:14 Finalized By: Rachel Shaver I Document Signatures Signed By: Rachel Shaver I 12/13/22 13:11 Normal [facility] Main OR Preoperative Recordo n 12-13-2022 Main OR Preoperative Record PreOp Document Type FT Summary Primary Physician: Gwyn Garcia DO Finalized Date/Time: 12/13/22 10:22:35 Pt. Name: CECI SPEARS/Sex: 1955 Female Med Rec #: [id number] Physician: Gwyn Garcia DO Financial #: [id number] Pt. Type: Room/Bed: [place] [address] Admit/Disch: 12/13/22 06:46:46 - Institution: Case Times PreOp FT Pre-Care Text: Verifies consent for planned procedure, identifies individual values and wishes concerning care, includes family members in perioperative teaching Entry 1 Patient Times. In Pre Surgery 12/13/22 07:05:00 Out Pre Surgery 12/13/22 09:23:00 Outcomes Met? Yes Last Modified By: Linda Lobato RN 12/13/22 10:22:33 Post-Care Text: The patient participates in decisions affecting his or her perioperative plan of care Finalized By: Linda Lobato RN Document Signatures Signed By: Linda Lobato RN 12/13/22 10:22 Normal [facility] Monitor Recordon 12-13-2022 Monitor Record [id number]. 00CD:127 Normal [facility] Monitor Record [id number]. 00CD:127 Normal [facility] Operative Reporton Operative Report SURGERY DATE: 12/13/2022 PREOPERATIVE DIAGNOSIS: Left knee end-stage osteoarthritis, failure of conservative injection care compounded by morbid obesity, body mass index greater than 40 POSTOPERATIVE DIAGNOSIS: Left knee end-stage osteoarthritis, failure of conservative injection care compounded by morbid obesity, body mass index greater than 40 OPERATION: Left total knee arthroplasty compounded by morbid obesity ANESTHESIA: Spinal with sedation with block ESTIMATED BLOOD LOSS: Zero SPECIMEN: Bone IMPLANTS: The DePuy Attune Knee System with a #5 PS cemented left femur, a #5 cemented fixed tibial tray, an 8 polyethylene, 35 mm patellar button HISTORY AND INDICATIONS: Ceci is a 67-year-old female with progressive bilateral knee pain. She is several weeks out from her contralateral right knee replacement and doing much better. She is seen and evaluated in the office with [id number]-[id number] disease that is severe grade 4 on x-ray of the medial and patellofemoral compartment. She has failed conservative injection care. She does have activities of daily living and night disruption. She does have strong family support for the perioperative course. The pros, cons, risks, benefits, reasonable expectations were thoroughly reviewed. Consent form signed and charted. The site is marked preoperatively. All questions were answered preoperatively. Antibiotics provided weight-based per protocol. PROCEDURE: Ceci is taken to the Operating Room and placed in supine position. Anesthesia is provided. A well-padded tourniquet was placed on the left upper thigh and the leg is prepped and draped in sterile fashion. A time-out procedure occurred consistent with the consent form, History and Physical, preoperative marked site. Landmarks were identified. Once the time-out was confirmed, the a midline incision was made of 6 . Medial parapatellar arthrotomy was performed. Her BMI over 40 as well as soft tissue envelope did require further assistance and time. Medial parapatellar arthropathy was performed and the patella was everted. She had end-stage tricompartmental degenerative changes that were grade 4 in nature. Irrisept antibiotic solution was allowed to soak per protocol. Patella was appropriately cut and retracted. Intramedullary drill and jig device was placed in the femur and a 5 degree valgus cut taking off 11 mm was performed. This was sized at a #5 Biocycleuy Attune. Anterior, posterior chamfer cuts as well as posterior stabilized box cut was performed. Anterior cruciate ligament and posterior cruciate ligament were resected. Collateral ligaments were protected and balanced. Meniscal remnants removed. Intramedullary drill and jig device was placed to the tibia. The tibia was cut. Gaps were symmetrical. Posterior gutters were cleaned and free. Tibia was prepared for a #5 tray. All trial components were placed with full extension, appropriate collateral balance. Patellofemoral tracking was appropriate with a 35 mm trial. All trial components were removed. The capsule, gutter and subcutaneous tissue were injected with Exparel per protocol. Irrisept was allowed to soak followed by copious irrigation. The Isabel Simplex cement was mixed. All components were cemented in place and allowed to harden for 16 minutes. All cement osteophytes were removed. It was taken through an arc of motion and deemed stable. After copious irrigation, 2 gm of tranexamic acid was placed subfascially. Fascial layer was closed with #2 Quill suture in a running fashion, 2-0 Quill suture closed the subcutaneous tissues and poly were applied. A 10-inch Mepilex dressing with soft wrap was provided. The tourniquet was deflated. She was awaken from anesthesia and transferred to the Recovery Room in stable and satisfactory condition. CASE: Clean and elective COUNTS: Sponge and needle count correct SPECIMEN: Bone CONDITION: The patient's condition satisfactory Wesley Conte Dictated: 12/13/2022 [id number] Transcribed: 12/13/2022 cc:Camille Williamson M.D. [facility] Comment on above: Result Comment: Elec tronically Signed By: Gwyn Garcia DO\.br\Date and Time Signed: 12/13/22 15:26 EDT Operative Report Patient: CECI SPEARS Age: 67 years Sex: Female : 1955 Associated Diagnoses: None Author: Gwyn Garcia DO Health Status Allergies: Allergic Reactions (Selected) No Known Medication Allergies Review / Management Results review: Lab results 12/13/2022 8:11 EDT UA Spec Desc Clean Catch UA Color Yellow UA Clarity Clear UA Spec Grav 1.020 UA pH 6.0 UA Protein Negative UA Glucose Negative UA Ketones Negative UA Bili Negative UA Blood Negative UA Nitrite Negative UA Urobilinogen 0.2 EU/dL UA Leuk Est 1+ UA RBC 0-3 /HPF UA Squam Epithelial 0-2 /HPF UA WBC 6-15 /HPF UA Bacteria Trace /HPF UA Mucous Trace 12/13/2022 7:41 EDT ABO/Rh Interp O POS ABSC Gel Interp Negative . Impression and Plan Diagnosis Pre-op dx-lt knee oa/pain/obesity BMI>40 Post-op dx-same Procedure-lt tka comp by obesity BMI>40 Anesthesia-spinal/bloc k EBL-0 TT-see nn To Recovery Room in stable and satisfactory condition.. [facility] Comment on above: Result Comment: Elec tronically Signed By: Gwyn Garcia DO\.br\Date and Time Signed: 12/13/22 11:01 EDT Progress Note-Physicianon Progress Note-Physician Patient: CECI SPEARS Age: 67 years Sex: Female : 1955 Associated Diagnoses: None Author: MD Margot, Andrew Browne Postoperative Information Postoperative disposition: Postoperative disposition: To PACU. Optimetrix number: Optimetrix number [id number]. Anesthetic utilized: General. Health Status Allergies: Allergic Reactions (Selected) No Known Medication Allergies Physical Examination VS/Measurements Pain Assessment: Controlled. General: Awake, Alert, Appropriate. Respiratory: Adequate air exchange. Cardiovascular: Stable, Normal peripheral perfusion. Neurological: Normal sensory function, Normal motor function. Assessment Anesthetic outcome No anesthetic complications noted. Adequate pain relief. able to void without difficulty, able to ambulate with assist, tolerating PO intake, no N/V. Review / Management Condition: Stable. Plan Transfer/Discharge: Transfer/Discharge Discharge when meets criteria ( To home ). Normal [facility] Comment on above: Result Comment: Elec tronically Signed By: MD Margot, Andrew Browne\.br\Date and Time Signed: 12/13/22 15:02 EDT Progress Note-Physician Patient: CECI SPEARS Age: 67 years Sex: Female : 1955 Associated Diagnoses: None Author: MD Frost Ahmad F Preoperative Information Time patient last ate or drank:=== (npo 8 hours) Anesthesia history: Patient history: No prior anesthesia problems. Re-evaluation prior to induction: Completed, Initial evaluation reviewed. Review of Systems Respiratory: No shortness of breath. Cardiovascular: No chest pain. Hematology/Lymphatics: No bruising tendency, No bleeding tendency. Health Status Allergies: Allergic Reactions (All) No Known Medication Allergies Current medications: (Selected) Inpatient Medications Ordered Arixtra 2.5 mg/0.5 mL Injection: 2.5 mg = 0.5 mL, Injection, SubCutaneous, qAM for 10 day(s), Stop date 12/24/22 6:29:00 EDT, Routine, Start date 12/14/22 6:30:00 EDT, Start AM postop day 1, 12/14/22 6:30:00 EDT Colace 100 mg Cap: 100 mg = 1 cap(s), Cap, Oral, BID, Routine, Start date 12/13/22 21:00:00 EDT, 12/13/22 10:00:00 EDT Dulcolax 5 mg Tab-EC: 10 mg = 2 tab(s), Tab-EC, Oral, Daily PRN Constipation, Routine, Start date 12/15/22 10:00:00 EDT, 12/15/22 10:00:00 EDT HYDROmorphone 1 mg/mL injectable solution: 1 mg = 1 mL, Injection, IV Push, q2hr PRN Pain 8-10 for 5 day(s), Stop date 12/18/22 9:59:00 EDT, Routine, Start date 12/13/22 10:00:00 EDT, 12/13/22 10:00:00 EDT Lactated Ringers IV Diane 1000 mL 1,000 mL: 1,000 mL, IV, 150 mL/hr, Routine, Start date 12/13/22 7:00:00 EDT, 6.7 hour(s), Total volume (mL): 1,000 Lactated Ringers IV Diane 1000 mL 1,000 mL: 1,000 mL, IV, 80 mL/hr, Routine, Start date 12/13/22 10:00:00 EDT, 12.5 hour(s), Total volume (mL): 1,000 Milk of Magnesia 8% Susp-Oral: 30 mL, Susp-Oral, Oral, BID PRN Constipation, Routine, Start date 12/13/22 10:00:00 EDT Nozin 62% Bottle - POSTOP: 6 drop(s), Soln-Nasal, Nasal, BID, Routine, Start date 12/13/22 21:00:00 EDT Pantoprazole [address] Tab: 40 mg = 1 tab(s), Tab-DR, Oral, Daily, Routine, Start date 12/14/22 9:00:00 EDT, 12/13/22 10:00:00 EDT Zofran 4 mg/2 mL Injection: 4 mg = 2 mL, Injection, IV Push, q6hr PRN Nausea/Vomiting, Routine, Start date 12/13/22 10:00:00 EDT, 12/13/22 10:00:00 EDT acetaminophen-oxycodon e 325 mg-5 mg Tab: 1 tab(s), Tab, Oral, q4hr PRN Pain 4-7 for 5 day(s), Stop date 12/18/22 9:59:00 EDT, Routine, Start date 12/13/22 10:00:00 EDT acetaminophen-oxycodon e 325 mg-5 mg Tab: 2 tab(s), Tab, Oral, q4hr PRN Pain 4-7 for 5 day(s), Stop date 12/18/22 9:59:00 EDT, Routine, Start date 12/13/22 10:00:00 EDT cefazolin additive + Sodium Chloride 0.9% intravenous solution 50 mL: 2 gram = 1 EA, IV Piggyback, q8hr for 2 dose(s), Stop date 12/14/22 9:44:00 EDT, Routine, Start date 12/13/22 17:45:00 EDT, 100 mL/hr, Infuse over 30 minute(s) levothyroxine 137 mcg (0.137 mg) Tab: 137 mcg = 1 tab(s), Tab, Oral, Daily, Routine, Start date 12/14/22 6:30:00 EDT metoprolol 25 mg ER Tab: 25 mg = 1 tab(s), Tab-ER, Oral, Daily, Routine, Start date 12/14/22 9:00:00 EDT morphine 2 mg/mL Inj: 2 mg = 1 mL, Injection, IV, q4hr PRN Pain 8-10 for 5 day(s), Stop date 12/18/22 9:59:00 EDT, Routine, Start date 12/13/22 10:00:00 EDT, 12/13/22 10:00:00 EDT Prescriptions Prescribed Colace 100 mg Cap: 100 mg = 1 cap(s), Oral, BID, # 20 cap(s), Refills(s) 0, Pharmacy: [facility]/pharmacy #[id number], 160, cm, 08/09/22 5:49:00 EST, Height/Length Dosing, 114.3, kg, 08/09/22 5:49:00 EST, Weight Dosing Colace 100 mg Cap: 100 mg = 1 cap(s), Oral, BID, # 20 cap(s), Refills(s) 0, Pharmacy: [facility]/pharmacy #[id number], 160, cm, 08/09/22 5:49:00 EST, Height/Length Dosing, 114.3, kg, 08/09/22 5:49:00 EST, Weight Dosing Keflex 500 mg Cap: 500 mg = 1 cap(s), Oral, QID, Start the day after knee surgery, X 5 day(s), # 20 cap(s), Refills(s) 0, Pharmacy: [facility]/pharmacy #[id number], 160, cm, 08/09/22 5:49:00 EST, Height/Length Dosing, 114.3, kg, 08/09/22 5:49:00 EST, Weight Dosing Percocet 5 mg-325 mg oral tablet: See Instructions, 50 tab(s), Refill(s) 0, Take one to two every 4 hours as needed for pain from knee surgery, [facility]/pharmacy #[id number], 160, cm, 08/09/22 5:49:00 EST, Height/Length Dosing, 114.3, kg, 08/09/22 5:49:00 EST, Weight Dosing Percocet 5 mg-325 mg oral tablet: See Instructions, 50 tab(s), Refill(s) 0, take one to two every 4 hours as needed for knee replacement pain, [facility]/pharmacy #[id number], 160, cm, 08/09/22 5:49:00 EST, Height/Length Dosing, 114.3, kg, 08/09/22 5:49:00 EST, Weight Dosing aspirin 325 mg Tab: 325 mg = 1 tab(s), Oral, Daily, Start the day after knee surgery, X 30 day(s), # 30 tab(s), Refills(s) 0, Pharmacy: [facility]/pharmacy #[id number], 160, cm, 08/09/22 5:49:00 EST, Height/Length Dosing, 114.3, kg, 08/09/22 5:49:00 EST, Weight Dosing Documented Medications Documented levothyroxine 137 mcg (0.137 mg) Tab: 137 mcg = 1 tab(s), Oral, Daily, Refills(s) 0, Thyroid metoprolol 25 mg ER Tab: 25 mg = 1 tab(s), Oral, Daily, High blood pressure Problem list: All Problems Hypothyroid / SNOMED CT 50733137 / Confirmed Knee osteoarthritis / SNOMED CT [address]606 (more content not included)... Normal [facility] Comment on above: Result Comment: Elec tronically Signed By: MD Margot, Andrew Browne\.br\Date and Time Signed: 12/13/22 15:00 EDT Urinalysison 12-13-2022 Bacteria LM Ql (Urine sed) TRACE Normal Trace [facility] Comment on above: Performed By: #### 1 [id number] #### [facility] [address] [place] [address] Bilirubin Ql (U) Negative Normal Negative [facility] Comment on above: Performed By: #### 1 [id number] #### [facility] [address] [place] [address] Clarity (U) CLEAR Normal Clear [facility] Comment on above: Performed By: #### 1 [id number] #### [facility] [address] [place] [address] Color (U) YELLOW Normal Yellow [facility] Comment on above: Performed By: #### 1 [id number] #### [facility] [address] [place] [address] Epithelial cells.squamous LM.HPF (Urine sed) [#/Area] 0-2 Normal 0-2 [facility] Comment on above: Performed By: #### 1 [id number] #### [facility] [address] [place] [address] Glucose Test strip (U) [Mass/Vol] Negative Normal Negative [facility] Comment on above: Performed By: #### 1 [id number] #### [facility] [address] [place] [address] Hemoglobin Ql (U) Negative Normal Negative [facility] Comment on above: Performed By: #### 1 [id number] #### [facility] [address] [place] [address] Ketones (U) [Mass/Vol] Negative Normal Negative [facility] Comment on above: Performed By: #### 1 [id number] #### [facility] [address] [place] [address] [place].plasma/Lith ium.RBC (Bld) [Mass ratio] 0-3 Normal 0-3 [facility] Comment on above: Performed By: #### 1 [id number] #### [facility] [address] [place] [address] Mucus Ql (Urine sed) TRACE Normal [facility] Comment on above: Performed By: #### 1 [id number] #### [facility] [address] [place] [address] Nitrite Ql (U) Negative Normal Negative [facility] Comment on above: Performed By: #### 1 [id number] #### [facility] [address] [place] [address] pH (U) 6.0 [pH] Invalid Interpretation Code 5.0-9.0 [facility] Comment on above: Performed By: #### 1 [id number] #### [facility] [address] [place] [address] Protein (U) [Mass/Vol] Negative Normal Negative [facility] Comment on above: Performed By: #### 1 [id number] #### [facility] [address] [place] [address] Specific gravity (U) [Rel density] 1.020 Invalid Interpretation Code 1.005-1.030 [facility] Comment on above: Performed By: #### 1 [id number] #### [facility] [address] [place] [address] Type of Urine collection method Clean Catch Normal [facility] Comment on above: Performed By: #### 1 [id number] #### [facility] [address] [place] [address] Urobilinogen Qn (U) 0.2 {Tyson'U}/dL Normal 0.0-1.0 [facility] Comment on above: Performed By: #### 1 [id number] #### [facility] [address] [place] [address] WBC Auto Ql (U) 1+ Abnormal Negative [facility] Comment on above: Performed By: #### 1 [id number] #### [facility] [address] [place] [address] WBC LM.HPF (Urine sed) [#/Area] 6-15 Abnormal 0-5 [facility] Comment on above: Performed By: #### 1 [id number] #### [facility] [address] [place] [address] XR Knee 1 or 2 Views Lefton 12-13-2022 XR Knee 1 or 2 Views Left Exam Date/Time: 12/13/2022 11:52 EDT Reason for Exam: Post-op evaluation;Other (please specify) Report IMPRESSION: NEGATIVE POSTOPERATIVE LEFT KNEE. CLINICAL HISTORY: Post-op evaluation COMPARISON: None FINDINGS: Interval placement of left bipolar knee arthroplasty. No fracture. No abnormal lucency bone prosthetic interface. Ordering Provider: Gwyn Garcia FINAL REPORT Dictated: 12/13/2022 1:56 pm Heath Quiros MD Signed (Electronic Signature): 12/13/2022 1:56 pm Signed by: Heath Quiros MD Transcribed by: A[place]IN Technologist: JACKIE Technical Comments Radiation Dose: Ka,r in mGy = na DAP = na Normal [facility] Inpatient Patient Summaryon 12-08-2022 Inpatient Patient Summary [facility] [address] [place], [place] [address] [facility] Clinical Discharge Instructions PERSON INFORMATION Name: CECI SPEARS PHYSICIANS Admitting Physician: Gwyn Garcia DO Attending Physician: Gwyn Garcia DO PCP: CAMILLE WILLIAMSON MD Discharge Diagnosis: Localized osteoarthritis of left knee Comment: PATIENT EDUCATION INFORMATION Instructions: Cam - Total Knee Arthroplasty (CUSTOM) Medication Leaflets: Follow up: With: Address: When: Gwyn Garcia [address] [place] [address] [facility] [place] ([place]) Comments: Keep scheduled appointment Type Location Start [facility] 12/13/2022 10:00 AM 12/13/2022 11:15 AM Confirmed MEDICATION LIST Medications to Continue with No Changes Other Medications acetaminophen-hydrocod one (acetaminophen-hydroco done 325 mg-7.5 mg oral tablet) 1 Tablets By Mouth every 6 hours as needed for pain. acetaminophen-oxycodon e (Percocet 5 mg-325 mg oral tablet) take one to two every 4 hours as needed for knee replacement pain. Refills: 0. docusate (Colace 100 mg Cap) 1 Capsules By Mouth 2 times a day. Refills: 0. levothyroxine (levothyroxine 137 mcg (0.137 mg) Tab) 1 Tablets By Mouth every day. metoprolol (metoprolol 25 mg ER Tab) 1 Tablets By Mouth every day. Comment: Normal [facility] Outpatient Surgery Discharge Instructionon 12-08-2022 Outpatient Surgery Discharge Instruction [place] [id number] Patient Discharge Instructions PERSON INFORMATION Name: CECI SPEARS Date of : 1955 Current Date: 12/08/2022 15:42:00 PHYSICIANS Admitting Physician: Gwyn Garcia DO Discharge Diagnosis: Localized osteoarthritis of left knee MARKOS CECI has been given the following list of follow-up instructions, prescriptions, and patient education materials: PATIENT FOLLOW-UP INFORMATION Diet: Regular, Drink liquids and eat a light meal Discharge Activity: Ambulate as tolerated, Arrange for a responsible adult supervision for 24 hours, Expect mild pain, Expect minimal amount of drainage and/or bleeding, Do not lift more than 5 lbs Discharge Restrictions: No driving, Do not operate machinery or tools, Do not make important decisions for 24 hours, Do not drink alcoholic beverages for 24 hours Call Your Doctor For: Persistent or heavy bleeding, Temperature above 101.5 degrees, Redness, swelling, or pus at operative site, Severe pain at the operative site, Persistent vomiting Wound Care Instructions: Remove dressing as instructed Remove Your Dressing In 10 Days IF UNABLE TO CONTACT YOUR PHYSICIAN AND YOU FEEL IT IS AN EMERGENCY, GO TO THE NEAREST EMERGENCY ROOM OR CALL 911 I, CECI SPEARS, have received the attached patient education materials/instructions and have verbalized understanding: May we do a follow up call? Yes No I was present when discharge instructions were given Patient Signature Date Clinican/Nurse Signature ___ Date Follow up: With: Address: When: Gwyn Garcia [address] [place], [place] [id number] [employer] (1) Comments: Keep scheduled appointment Type Location Start [facility] 12/13/2022 10:00 AM 12/13/2022 11:15 AM Confirmed Pharmacy Information: You may receive a survey from Kelly Rogel asking you to rate your care experience. Your feedback is important and will help us understand what we do well and how we can improve the quality of care we provide to you, your loved ones and our community. It?s an honor to serve you. Thank you for choosing [facility] HERE ARE THE MEDICATION CHANGES THAT OCCURRED DURING YOUR HOSPITAL STAY Medications to Continue with No Changes Other Medications acetaminophen-hydrocod one (acetaminophen-hydroco done 325 mg-7.5 mg oral tablet) 1 Tablets By Mouth every 6 hours as needed for pain. acetaminophen-oxycodon e (Percocet 5 mg-325 mg oral tablet) take one to two every 4 hours as needed for knee replacement pain. Refills: 0. docusate (Colace 100 mg Cap) 1 Capsules By Mouth 2 times a day. Refills: 0. levothyroxine (levothyroxine 137 mcg (0.137 mg) Tab) 1 Tablets By Mouth every day. metoprolol (metoprolol 25 mg ER Tab) 1 Tablets By Mouth every day. PATIENT EDUCATION INFORMATION Instructions: [place], [place] [facility] DISCHARGE INSTRUCTIONS TOTAL KNEE ARTHROPLASTY INCISION CARE: Mepilex dressing can get wet with showers. Please remove 10 days after surgery per instruction sheet. If poly present, please coordinate removal 21 days after surgery with office staff. Please notify the office if any increase in redness, tenderness, drainage, fever, or wound separation is noted beyond this point. MEDICATIONS: You may resume your home medications at the time of discharge. Aspirin 325 mg EC oral once a day for 4 weeks for blood clot prevention with meals. Please notify your doctor if you have a stomach sensitivity to Aspirin or history of previous stomach ulcers. Pain medication has been prescribed as well. You may continue to use the pain medication every four hours as needed. Any narcotic pain medication can cause side effects including stomach upset, constipation, or light-headedness. You should not drive or operate machinery, or use alcohol while using the narcotic pain medication. You should not use other pain medications with this prescription pain medication unless further directed by your physician. PHYSICAL THERAPY: Continue the range of motion and strengthening exercises initiated in Physical Therapy in the hospital. [facility] Instructs for TKA Page 2 Physical Therapy Cont. Continue weight bearing, as ordered, to the operated knee for four to six weeks as directed in Physical Therapy, or until your strength is improved and Physical Therapy will then allow you to progress to full weight. This will be with the use of a walker or crutches initially. Assistive devices can be weaned or eran (more content not included)... Normal [facility] Outside [facility]son 12-07-2022 Outside Labs [id number]. 00CD:127 Normal [facility] Consent for Procedure/Surger yon 12-06-2022 Consent for Procedure/Surgery [id number]#1. 00CD:127 Normal [facility] Progress Note-Physicianon Progress Note-Physician Patient: CECI SPEARS [facility]: [id number] Age: 67 years Sex: Female : 1955 Associated Diagnoses: None Author: Michoacano Ambrocio Jr, DO Preoperative Information Time patient last ate or drank:=== (npo 8 hours) Anesthesia history: Patient history: No prior anesthesia problems. Re-evaluation prior to induction: Completed, Initial evaluation reviewed. Review of Systems Respiratory: No shortness of breath. Cardiovascular: No chest pain. Hematology/Lymphatics: No bruising tendency, No bleeding tendency. Health Status Allergies: Allergic Reactions (All) No Known Medication Allergies Current medications: (Selected) Inpatient Medications Ordered Arixtra 2.5 mg/0.5 mL Injection: 2.5 mg = 0.5 mL, Injection, SubCutaneous, qAM for 10 day(s), Stop date 09/10/22 6:29:00 EST, Routine, Start date 08/31/22 6:30:00 EST, Start AM postop day 1 Colace 100 mg Cap: 100 mg = 1 cap(s), Cap, Oral, BID, Routine, Start date 08/30/22 21:00:00 EST, 08/30/22 12:30:00 EST Dulcolax 5 mg Tab-EC: 10 mg = 2 tab(s), Tab-EC, Oral, Daily PRN Constipation, Routine, Start date 09/01/22 12:30:00 EST, 09/01/22 12:30:00 EST HYDROmorphone 1 mg/mL injectable solution: 1 mg = 1 mL, Injection, IV Push, q2hr PRN Pain 8-10 for 5 day(s), Stop date 09/04/22 12:29:00 EST, Routine, Start date 08/30/22 12:30:00 EST, 08/30/22 12:30:00 EST Lactated Ringers IV Diane 1000 mL 1,000 mL: 1,000 mL, IV, 150 mL/hr, Routine, Start date 08/30/22 9:30:00 EST, 6.7 hour(s), Total volume (mL): 1,000, 114.3 kg, 2.25, m2 Lactated Ringers IV Diane 1000 mL 1,000 mL: 1,000 mL, IV, 80 mL/hr, Routine, Start date 08/30/22 12:30:00 EST, 12.5 hour(s), Total volume (mL): 1,000, 114.3 kg, 2.25, m2 Milk of Magnesia 8% Susp-Oral: 30 mL, Susp-Oral, Oral, BID PRN Constipation, Routine, Start date 08/30/22 12:30:00 EST Nozin 62% Bottle - POSTOP: 6 drop(s), Soln-Nasal, Nasal, BID, Routine, Start date 08/30/22 21:00:00 EST Pantoprazole [address] Tab: 40 mg = 1 tab(s), Tab-DR, Oral, Daily, Routine, Start date 08/31/22 9:00:00 EST, 08/30/22 12:30:00 EST Zofran 4 mg/2 mL Injection: 4 mg = 2 mL, Injection, IV Push, q6hr PRN Nausea/Vomiting, Routine, Start date 08/30/22 12:30:00 EST, 08/30/22 12:30:00 EST acetaminophen-oxycodon e 325 mg-5 mg Tab: 1 tab(s), Tab, Oral, q4hr PRN Pain 4-7 for 5 day(s), Stop date 09/04/22 12:29:00 EST, Routine, Start date 08/30/22 12:30:00 EST acetaminophen-oxycodon e 325 mg-5 mg Tab: 2 tab(s), Tab, Oral, q4hr PRN Pain 4-7 for 5 day(s), Stop date 09/04/22 12:29:00 EST, Routine, Start date 08/30/22 12:30:00 EST cefazolin additive + Sodium Chloride 0.9% intravenous solution 50 mL: 2 gram = 1 EA, IV Piggyback, q8hr for 2 dose(s), Stop date 08/31/22 4:59:00 EST, Routine, Start date 08/30/22 13:00:00 EST, 100 mL/hr, Infuse over 30 minute(s), 08/30/22 12:30:00 EST cefazolin additive + Sodium Chloride 0.9% intravenous solution 50 mL: 2 gram = 1 EA, Powder-Inj, IV Piggyback, PREOP, Routine, Start date 08/30/22 9:30:00 EST, 100 mL/hr, Infuse over 30 minute(s) levothyroxine 137 mcg (0.137 mg) Tab: 137 mcg = 1 tab(s), Tab, Oral, Daily, Routine, Start date 08/31/22 6:30:00 EST morphine 2 mg/mL Inj: 2 mg = 1 mL, Injection, IV, q4hr PRN Pain 8-10 for 5 day(s), Stop date 09/04/22 12:29:00 EST, Routine, Start date 08/30/22 12:30:00 EST, 08/30/22 12:30:00 EST Prescriptions Prescribed Colace 100 mg Cap: 100 mg = 1 cap(s), Oral, BID, # 20 cap(s), Refills(s) 0, [id number] 160, cm, 08/09/22 5:49:00 EST, Height/Length Dosing, 114.3, kg, 08/09/22 5:49:00 EST, Weight Dosing Keflex 500 mg Cap: 500 mg = 1 cap(s), Oral, QID, Start the day after knee replacement surgery, X 5 day(s), # 20 cap(s), Refills(s) 0, [id number], 160, cm, 08/09/22 5:49:00 EST, Height/Length Dosing, 114.3, kg, 08/09/22 5:49:00 EST, Weight Dosing Percocet 5 mg-325 mg oral tablet: See Instructions, 50 tab(s), Refill(s) 0, take one to two every 4 hours as needed for knee replacement pain, [id number] 160, cm, 08/09/22 5:49:00 EST, Height/Length Dosing, 114.3, kg, 08/09/22 5:49:00 EST, Weight Dosing aspirin 325 mg Tab: 325 mg = 1 tab(s), Oral, Daily, Start the day after knee replacement surgery, X 30 day(s), # 30 tab(s), Refills(s) 0, [id number], 160, cm, 08/09/22 5:49:00 EST, Height/Length Dosing, 114.3, kg, 08/09/22 5:49:00 EST, Weight Dosing Documented Medications Documented acetaminophen-hydrocod one 325 mg-7.5 mg oral tablet: 1 tab(s), Oral, q6hr for pain, Refill(s) 0 levothyroxine 137 mcg (0.137 mg) Tab: 137 mcg = 1 tab(s), Oral, Daily, Refills(s) 0, Thyroid metoprolol 25 mg ER Tab: 25 mg = 1 tab(s), Oral, Daily, High blood pressure Problem list: All Problems Hypothyroid / SNOMED CT 00415374 / Confirmed Knee osteoarthritis / SNOMED CT 373484229 / Confirmed Resolved: History of breast cancer / SNOMED CT 1664067866 Histories Past Medical History: No active or resolved past medical history items have been selected or recorded. Family History: (more content not included)... Normal [facility] Comment on above: Result Comment: Elec tronically Signed By: Michoacano Ambrocio Jr, DO\.br\Date and Time Signed: 09/05/22 13:16 EST Progress Note-Physician Patient: CECI SPEARS Age: 67 years Sex: Female : 1955 Associated Diagnoses: None Author: Michoacano Ambrocio Jr, DO Postoperative Information Post Operative Note: Post Anesthesia Care Unit. Anesthetic utilized: General. Health Status Allergies: Allergic Reactions (Selected) No Known Medication Allergies Problem list: All Problems Hypothyroid / SNOMED CT 34492416 / Confirmed Knee osteoarthritis / SNOMED CT 404590802 / Confirmed Resolved: History of breast cancer / SNOMED CT 9813377529 Physical Examination Vital Signs 08/30/2022 14:00 EST Heart Rate Monitored 58 bpm LOW Heart Rate Monitored 59 bpm LOW Respiratory Rate Monitored 18 br/min Respiratory Rate Monitored 19 br/min Systolic Blood Pressure 105 mmHg Diastolic Blood Pressure 52 mmHg LOW Mean Arterial Pressure, Cuff 70 mmHg SpO2 94 % SpO2 94 % 08/30/2022 13:55 EST Heart Rate Monitored 59 bpm LOW Respiratory Rate Monitored 16 br/min Systolic Blood Pressure 119 mmHg Diastolic Blood Pressure 73 mmHg Mean Arterial Pressure, Cuff 88 mmHg SpO2 93 % 08/30/2022 13:50 EST Heart Rate Monitored 58 bpm LOW Respiratory Rate Monitored 16 br/min Systolic Blood Pressure 118 mmHg Diastolic Blood Pressure 73 mmHg Mean Arterial Pressure, Cuff 88 mmHg SpO2 94 % 08/30/2022 13:46 EST Temperature Temporal Artery 36.1 DegC LOW Heart Rate Monitored 58 bpm LOW Respiratory Rate Monitored 17 br/min Systolic Blood Pressure 133 mmHg Diastolic Blood Pressure 70 mmHg Mean Arterial Pressure, Cuff 91 mmHg SpO2 93 % 08/30/2022 13:40 EST Heart Rate Monitored 62 bpm bpm Respiratory Rate 22 br/min br/min SpO2 97 % % 08/30/2022 13:35 EST Heart Rate Monitored 58 bpm bpm Respiratory Rate 19 br/min br/min Systolic Blood Pressure 129 mmHg mmHg Diastolic Blood Pressure 70 mmHg mmHg SpO2 95 % % 08/30/2022 13:30 EST Heart Rate Monitored 55 bpm bpm Respiratory Rate 16 br/min br/min Systolic Blood Pressure 116 mmHg mmHg Diastolic Blood Pressure 67 mmHg mmHg SpO2 95 % % 08/30/2022 13:25 EST Heart Rate Monitored 51 bpm bpm Respiratory Rate 18 br/min br/min Systolic Blood Pressure 122 mmHg mmHg Diastolic Blood Pressure 76 mmHg mmHg SpO2 95 % % 08/30/2022 13:20 EST Heart Rate Monitored 51 bpm bpm Respiratory Rate 20 br/min br/min Systolic Blood Pressure 127 mmHg mmHg Diastolic Blood Pressure 70 mmHg mmHg SpO2 95 % % 08/30/2022 13:15 EST Heart Rate Monitored 53 bpm bpm Respiratory Rate 22 br/min br/min Systolic Blood Pressure 126 mmHg mmHg Diastolic Blood Pressure 74 mmHg mmHg SpO2 95 % % 08/30/2022 13:10 EST Heart Rate Monitored 54 bpm bpm Respiratory Rate 21 br/min br/min Systolic Blood Pressure 129 mmHg mmHg Diastolic Blood Pressure 75 mmHg mmHg SpO2 95 % % 08/30/2022 13:05 EST Heart Rate Monitored 52 bpm bpm Respiratory Rate 20 br/min br/min Systolic Blood Pressure 130 mmHg mmHg Diastolic Blood Pressure 75 mmHg mmHg SpO2 94 % % 08/30/2022 13:00 EST Heart Rate Monitored 48 bpm bpm Respiratory Rate 21 br/min br/min Systolic Blood Pressure 112 mmHg mmHg Diastolic Blood Pressure 79 mmHg mmHg SpO2 95 % % 08/30/2022 12:55 EST Heart Rate Monitored 48 bpm bpm Respiratory Rate 24 br/min br/min Systolic Blood Pressure 129 mmHg mmHg Diastolic Blood Pressure 67 mmHg mmHg SpO2 96 % % 08/30/2022 12:50 EST Heart Rate Monitored 41 bpm bpm Respiratory Rate 26 br/min br/min Systolic Blood Pressure 126 mmHg mmHg Diastolic Blood Pressure 81 mmHg mmHg SpO2 94 % % 08/30/2022 12:45 EST Heart Rate Monitored 47 bpm bpm Respiratory Rate 19 br/min br/min Systolic Blood Pressure 105 mmHg mmHg Diastolic Blood Pressure 49 mmHg mmHg SpO2 96 % % 08/30/2022 12:40 EST Heart Rate Monitored 50 bpm bpm Respiratory Rate 18 br/min br/min Systolic Blood Pressure 98 mmHg mmHg Diastolic Blood Pressure 61 mmHg mmHg SpO2 95 % % 08/30/2022 12:35 EST Heart Rate Monitored 52 bpm bpm Respiratory Rate 19 br/min br/min Systolic Blood Pressure 98 mmHg mmHg Diastolic Blood Pressure 49 mmHg mmHg SpO2 95 % % 08/30/2022 12:30 EST Heart Rate Monitored 54 bpm bpm Respiratory Rate 20 br/min br/min Systolic Blood Pressure 103 mmHg mmHg Diastolic Blood Pressure 49 mmHg mmHg SpO2 96 % % 08/30/2022 12:25 EST Heart Rate Monitored 57 bpm bpm Respiratory Rate 19 br/min br/min SpO2 98 % % 08/30/2022 12:23 EST Systolic Blood Pressure 130 mmHg mmHg Diastolic Blood Pressure 77 mmHg mmHg 08/30/2022 12:20 EST Heart Rate Monitored 70 bpm bpm Respiratory Rate 6 br/min br/min SpO2 100 % % 08/30/2022 12:19 EST Systolic Blood Pressure 208 mmHg mmHg Diastolic Blood Pressure 98 mmHg mmHg 08/30/2022 12:17 EST Systolic Blood Pressure 198 mmHg mmHg Diastolic Blood Pressure 107 mmHg mmHg 08/30/2022 10:01 EST Heart Rate Monitored 69 bpm Systolic Blood Pressure 153 mmHg HI Diastolic Blood Pressure 84 mmHg Mean Arterial Pressure, Monitered 107 mmHg 08/30/2022 10:01 EST Heart Rate Monitored 68 bpm SpO2 95 % 08/30/2022 10:01 EST Ap (more content not included)... Normal [facility] Comment on above: Result Comment: Elec tronically Signed By: Cristóbal Gunn DO, Michoacano Muhammad\.param\Date and Time Signed: 09/05/22 13:15 EST Coding Summary.on 09-02-2022 Coding Summary. [id number] Gh 0bWw+PGhlYWQ+IX8CUQNjJ 20rbULhdS6EC5vAPX1LNML IGDQNGG2SZZ7bhWL2MYrwI 2VybiAv NvqxoGFmOZ79QVs2FKN1mQ xxFAdnoL8gbLOoX1q6GeUr PJ46fW46KYnxXJUfPoL8Kd ZpbjsgbWFy C8sxGaOtgXBtTnm+PHRhYm xlIHdpZHRoPScxMDAlJyBz rTqpTZ2hJh7hVJXlHTRolG xhcHNlOiBj m7ryUIPxUXyiDP5dqDmtX5 VfoPB3AXSlh3e5Lj16lXJ+ AHMyNPI3fFvfJMgyd785Rr Aug7rtAQI9 xAFdVJdxIVJ4T31jf9X6PT CvXURvYHE3dYQ7fQ1glIoh bbmrL3VnwWDoSvI5ATG7sL DxnC3voUpe maezrJ3yZyg+D81MZL6GLQ GCPT1KNbi3U9EsEmfpwTB+ BY93SWGhJD77kPBbbRYpv5 zwzPx6FrJi CKCaYIT8kVjsJZixo5GdEO MiG14utHYpb0W3QWIwrUub sLWyCkUtbEQ0tR0vGOhosk zvi4rqphnv Cgglu7srqu77aT76X16nRN imGGDmFQR1TSHhNLJozTaz cy2pjE8uOn4+NYhkl7nrp8 fplQe0UqDr WKLxueKdbNenRAJ3o7QoAt 28G2PzhVbns8EwPgu5cj16 yUYos6Z6kOK1VNtzNIOuzJ 8zQUycCuV3 NJEpPdOzoZ83nLFsTFefWb 2srLknwImyKS7kQCAqmdyv OLIvlY9jLGYnyOUvaVauXO 4wNTBpbjtm h945ZiIgHBZ4AYEsgSUbD1 XyhA2zEpGkSEKjWCGwZ1Gj kKVuGGhaA337IOhaNcA1TW XzbwHbC4Rv HODelCidJhQ1m3O0Zs3Lg5 ArqhaxWKO7DHfbCLDjQtB4 ArYrBqS2I7EjIjd3KPKhwP amDH8uR4Nq MPFnqnoxgyywsTZ7QQImEQ UkdX77lPCeXHbcQv6pp5Q1 q967LGRmMSWiiD58Vv5aqO ogMTBwdCBU lI0pybquv4qzibadAzWgPP SkZWl7HMr4UKRmcColKaHk KGE0KoP4NNT1rNJfoL3utW iejqdslR8p Oyc+W88ztW6zNSC6QHN1ic ukXQOxtgIkVF46RV92H2Yl PjwvdGFibGU+PGRpdiBzdH axBL6lJoGf n4hfp5NfYMcsZ6WwXRTuUH flSqp4RZWwMVX2kIR3vX3d WNIaBZgda3S5rBH8H8Llxo Pulf2oy1tr ZDGdFAvwM15mmVStz8X4NR WqtRO0AIRlyLopWkNphJ97 Oyc+FTQdxKlek1ExAicxa1 ccd4rdcIk2 GeCjFLAplvNrxGyzKTJ3x2 PdKv31E45gPSqoOEMrEBSm SZNtXUJzfTdfuh5htL6yCr 8+PGNvbCB3 mQK1dP0oGDHqNuM7UOefY0 61WqGznHVoIsqfn2uym2lw aXu3CwJaIIQmawEvhOwoHO T3m8HmNt87 D62pEXtcVZJfLYZzAWVaFZ FubTdidn3xwA1fAh4+PC9j e6wsfo11zV94tCA+PHRkIH S0dQlzAYzq ZWWwuD4mMSmaHqE8CRJaBw GpyI92tPWvKBusHz8jiHwi aYldLH2kXGIgrwyxs645Ku Otm3skGDSv gPKfROmqFMJ6E46to9V0JD RoSSUuWSS7eJL6jF1hbCbe bjogbGVmdDsgdmVydGljYW rtWMxjW901 IHRvcDsnPlBhdGllbnQgTm IeACb6X5BlHax6RFHffHas JK4zrOVeYDasTa4enKedjJ ozNT7aTKKm jnmog282UjZuj0rzPYQpoQ MgNUkaIDX8Z89jt3L0PUEg QHRoJQP4qRY8fS7rvRvesj ogbGVmdDsg xiFxcYvnPJfkETauI408KF RvcDsnPkJpcnRoIERhdGU6 UV41EH92kVByv2E0zLL0Z1 BhZGRpbmct cubnrKJ1SWWnGJQzzA88Ze 5iwTdvEn4pESAqYNC5ZKNe aKUoL0AfqY8wLhLaHKQwFV WvH1YmvIJn WHjbZ980TJixMqS7VSEdax WhH1WrSBObwBonOyM5l6R6 Cm7RV5A3BK61WP38eRLoj4 C8pLA4Y1Sy ZAIrwklfiwrjdDV9AOUtZU KdiZ78Ty8mwIikGn9oFJKf CAC7EERzsQKlX1HqoS8jBx AjMDAwMDAw P7TmpECiLQzkC349GQmkZp S2LRUiqdUrB0XdKUYtmGwe NmJ9m5V1Br7TYTl6TV09NJ 08sNCrx3Y1 iGW2Z5YlSFWvpeixjgwdkD K5EKLiIANnbE77Jj2zoFgf Zz7wTCGgGTO5LJAyfPGbG2 WvmC3iJmWw WXHvAMFwZ9NeoUPqBZjpZ7 33NKjkZzW1THEismSlI1Nq CGMrfBowOyZ2m5R4Dg9ZWD CfTP70KZG8 eRZ7YC16JA76R2UbRtzxvH FibGU+PHRhYmxlIHdpZHRo JWvdIAAqGwNgfQftVE9mLq 9yZGVyLWNv nXbmuODfFrGac2vmGUUsPA sfXL9amXiiK6IfiGD9EADx y8z1Th13K82lU1MroGJ+PG DskVS9xQW7 rQ6aGmOoFrP4FOgjN017Mc WvvYYzChzyq1ihg8hbpRb4 JvR2NTFoemFelPufQXN7m4 UbPg57L42f IHdpZHRoPSIxNSUiIHZhbG mcoz2gwJ3hAx6+PGNvbCB3 oQE7gL9eDpIgPuL9JNibT4 49InRvcCIv Afleo4uiq4ykiHq4OcMaRW DkbmUpvMibAKM2l2QyFi12 R9DpmXtas1JuOfk3en45eG Qwn6N3zMC8 R0BjAGRityvuqQHmdNmrYF 3rGHPxweklHAYjeB2hPIAm Q3g4ChUiMzE8CLjnN6Zqcu I3KOAxsQTx NFvgNPT2J81ux2L5CSLkHE JsUGK8uIT2mL2pjWcbozuo bGVmdDsgdmVydGljYWwtYW fzF273UNEj hBddTICnsX9kJSBkfTNhpQ fgCW3xYSLsgermGaGGMVNI BKKNSVPgIJSWU0FJWC37DV 00eNHrh2T4 xTL7D9VlDKZmnnlorzfwsR H8NDEpIDLpmD40bNNyYIwl Wq0qj0A6g889GJTlRIAjxA 75Kx2xkPmb EBYpfPLFyT2zejcff4mzqk nkTgDxUNMfHHp7JGr1EKOc bEwhVpJlYDS3PuX2WZV0nR YgwE3zdPpp heeczV1gGqd+MDYvMDUvMT s2FYeacYL+VJSxCHK2hDub NGhoAWRqcY7mXQLwU5l1Zs VlAkB0BAyt M0BiIPWoylmpHm34cJ2bUe BwJtQ9BHanL6XfksS5DMWe iVNkEXdjBDU0T58ju7V9EW MwMDAwMDA7 mVE3hH5ydUhfguekkMUbiQ lvfpQdwHmfTCycLYvfP189 LZPntGhvZoY7HEppKWFcYH 20XG91ySFz m7O3jUR9B5ZhOKXybfdjuz nyfJJ1EQNuNPPnbX24mAVe OZclNg8uv7X8h062WOZwUM BfxW08Je6n qKwlAVSsjYUWtW8tcuclw9 kqqrjpUoGhAXNoMPj9SUr5 NCDmnQdkCxHoSSI0YbY0MV F5sBHwrW5e wRynyehgyP9rTik+RmVtYW rqYE04BL71xXEuq2O8pRO7 W4ZhIJIpiaakliredQS7TI JlIWIuoV53 oOEbGPvxBf9nc3A7b231EE ObAXHmkG99Ig9ukAkxFYJw eBFSlL1pogrks7mwwahrTi AwMDAwMDt0 FRi8FAJohMayCxXqYWI8Tf L9XAW1yTJmgJ2ozFunwywk eV8nPvv+PW3vCPRxSM25VR 94IR52A3Xy PjwvdGFibGU+PHRhYmxlIH dpZHRoPScxMDAlJyBzdHls RH9rNh1dFVVpVNAahXicfY YuUeEkj2od XNHwLDexGP0lfEneA5FiqC Z5BCXdo4q8Ue88S13tS9Oq dXA+MZLxvCU5eGD4xG3yKo CqHgK9BAjt N475KxKesUUsFwuxw7yms9 pjwKl7AbMwGKAiyiVjxKcm ZUK1r2ZoJm53T08yXCrwWX RoPSIyMCUi IKUlqLxvbe1cdY1bAn5+PG VhzDF5qGB8rN7vBoPaCrV8 MCzoG561HiQloFNlRzncM9 3dC3OzsCH+ XQQlHzn4CRXcpLroAR6ytR VwNLukKv6fJUD5EiHmBnIl KYbnA1YjMFYkqnqagzdfaS O6UBEdJVUx lD08Nm4xlKuhLq5mOZMwAD D8NZOxhYOoX0VjyC3wWpQg ILMrGUTgD8ZjwDClKHruI7 63ZYnbYzO3 HHPnlyMoM1LqZEHufOaiRp J1p8W6Iy2YdAkeqXNtCG3f XcDdJFt0S8CwDsb6DXFfxC hbTL8mmXVl PNofZf1uuMkbtQvsPN2lWJ Ycuhilm125IsAlp2kfBMXh aWVoACqeGJR8W27et3O4OV MwMDAwMDA7 kZR5sX8zmAgxrewhuRUhkH iizoCehCotTXxdCEgtG774 IYYptGrlPsOCCgr0I9NiWs r9LVTmbNgd FG0dxSGyZUdjFq2yoJeflT nxSA4oIMVvxhebg653WbIv f0qqGIEbyMQcQPmdJNN0R1 9pd6R2ZNNp XHVcELI2qSG8mZ1puCvaiz ogbGVmdDsgdmVydGljYWwt ORayF325NKBvqHjpRr5JYv r6W8MfHrw8 XCZzuDfmRO7ipBInOEihEj 5ngPwreJfmZC7lJRZoefqt k255FoXmv9iaUMVniVQjXW hlRKA0V42g t3S1MTEsQVVvJZP8tZL9zM 1hbGlnbjogbGVmdDsgdmVy nTdoRAdoLNccN093EGLyzI snPlBheWVy OjwvdGQ+MQ73zy64W1WjBv weRkp1XWIwXJE9dIO5yY0m VQIgSNaqn8X0vIS9F2Ohst Wpcd8yr7st YXBz (more content not included)... Normal [facility] IntraOperative Documentson 0 09-02-2022 IntraOperative Documents [id number] [id number]:[id number] Normal [facility] IntraOperative Documentson 0 09-01-2022 IntraOperative Documents [id number]#[id number]:127 Normal [facility] Auto Diffon 08-31-2022 Basophils/100 WBC (Bld) 0.2 % Normal 0.0-2.0 [facility] Comment on above: Order Comment: Order Added by Discern Expert. Performed By: #### 2 [id number], [id number], [id number], 3711555, 2603994, [id number] #### [facility] [address] [place] [address]25 Basophils/Leukocyte s Auto (Bld) [Pure # fraction] 0.0 E9/L Normal 0.0-0.2 [facility] Comment on above: Order Comment: Order Added by Discern Expert. Performed By: #### 2 [id number], 0063812, [id number], 5599054, 7036903, [id number] #### [facility] [address] [place] [address] 46827 Eosinophils/100 WBC (Bld) 0.1 % Normal 0.0-8.0 [facility] Comment on above: Order Comment: Order Added by Discern Expert. Performed By: #### 2 [id number], [id number], [id number], 7786026, 3829500, 6094028 #### [facility] [address] [place] [address] 27542 Eosinophils/Leukocy julia Auto (Bld) [Pure # fraction] 0.0 E9/L Normal 0.0-0.5 [facility] Comment on above: Order Comment: Order Added by Discern Expert. Performed By: #### 2 [id number], 8826809, 09807303, 4721756, 7639024, 6757393 #### [facility] [address] [place] [address]113 Lymphocytes/100 WBC (Bld) 10.8 % Low 14.0-50.0 [facility] Comment on above: Order Comment: Order Added by Discern Expert. Performed By: #### 2 265460, 0839153, [id number], 2539256, 2593996, 1214929 #### [facility] [address] [place] [address]776 Lymphocytes/Leukocy julia Auto (Bld) [Pure # fraction] 1.0 E9/L Normal 1.0-4.0 [facility] Comment on above: Order Comment: Order Added by Discern Expert. Performed By: #### 2 129989, 3559120, 40146535, 8957786, 7439170, 8810781 #### [facility] [address] [place] [address] Monocytes/100 WBC (Bld) 8.1 % Normal 4.0-14.0 [facility] Comment on above: Order Comment: Order Added by Discern Expert. Performed By: #### 2 557946, 5952922, 53942005, 4757188, 6219909, 7406476 #### [facility] [address] [place] [address] Monocytes/Leukocyte s Auto (Bld) [Pure # fraction] 0.8 E9/L Normal 0.2-1.0 [facility] Comment on above: Order Comment: Order Added by Discern Expert. Performed By: #### 2 461128, 8377829, 68925811, 8995394, 2754388, 9485917 #### [facility] [address] [place] [address] Neutrophils/100 WBC (Bld) 80.8 % High 36.0-75.0 [facility] Comment on above: Order Comment: Order Added by Discern Expert. Performed By: #### 2 114817, 4498873, 95717152, 9085033, 1090759, 7937625 #### [facility] [address] [place] [address] Neutrophils/Leukocy julia Auto (Bld) [Pure # fraction] 7.8 E9/L High 2.0-7.5 [facility] Comment on above: Order Comment: Order Added by Discern Expert. Performed By: #### 2 369792, 3308364, 00504417, 6810863, 6439491, 4331601 #### [facility] [address] [place] [address] BUNon 08-31-2022 Urea nitrogen [Mass/Vol] 15 mg/dL Normal 5-21 [facility] Comment on above: Performed By: #### 2 218538, 6755521, 3842258, 5346804, 75675149, 1545717 ####[facility] [id number] [place] [address] Blood Bank Slipon 08-31-2022 Blood Bank Slip [id number]#1. 00CD:127 Normal [facility] CBC w/ Auto Diffon Erythrocyte distribution width (RBC) [Ratio] 13.9 % Normal 10.9-14.2 [facility] Comment on above: Performed By: #### 2 835494, 9576318, 8350436, 7999046, 47919559, 7560845 ####[address] [place] [address] Hematocrit (Bld) [Volume fraction] 41.7 % Normal 34.0-46.0 [facility] Comment on above: Performed By: #### 2 534209, 6645096, 3664225, 0735402, 47116565, 5271928 ####[address] [place] [address] Hemoglobin (Bld) [Mass/Vol] 14.0 g/dL Normal 12.0-16.0 [facility] Comment on above: Performed By: #### 2 045168, 3113918, 5024742, 5252798, 22577025, 5924958 ####[address] [place] [address] MCH (RBC) [Entitic mass] 29.7 pg Normal 27.0-34.0 [facility] Comment on above: Performed By: #### 2 001219, 7906018, 0535870, 1840681, 97759788, 6476455 ####[facility] [id number] [place] [address] MCHC (RBC) [Mass/Vol] 33.7 g/dL Normal 31.4-36.0 [facility] Comment on above: Performed By: #### 2 585509, 4845836, 8787669, 9766656, 30883378, 7702969 ####[address] [place] [address] MCV (RBC) [Entitic vol] 88.2 fL Normal 80.0-100.0 [facility] Comment on above: Performed By: #### 2 914788, 7629053, 1008020, 7521024, 64127920, 4268150 ####[address] [place] [address] Platelet mean volume (Bld) [Entitic vol] 7.9 fL Normal 6.4-10.8 [facility] Comment on above: Performed By: #### 2 199594, 0545900, 4259312, 1574367, 89416971, 9997865 ####[address] [address] Platelets (Bld) [#/Vol] 240.0 E9/L Normal 150.0-500.0 [facility] Comment on above: Performed By: #### 2 254089, 8704574, 7225838, 6475166, 03879149, 6385875 ####[address] [address] RBC (Bld) [#/Vol] 4.7 E12/L Normal 4.3-5.9 [facility] Comment on above: Performed By: #### 2 057660, 3315998, 7926893, 0231293, 93089606, 3100188 ####[address] [place] [address] WBC corrected for nucl RBC Auto (Bld) [#/Vol] 9.7 E9/L Normal 4.0-11.0 [facility] Comment on above: Performed By: #### 2 473359, 8386818, 6413387, 5675378, 79090976, 1359045 ####[address] [place] [address] CHEMISTRYOrdered By: SYSTEM SYSTEM on 08-31-2022 Anion gap [Moles/Vol] 11 mmol/L Normal 6 - 16 mEq/L [facility] Remisol Chloride [Moles/Vol] 101 mmol/L Normal 101 - 111 mmol/L [facility] Remisol CO2 [Moles/Vol] 26 mmol/L Normal 21 - 31 mmol/L [facility] Remisol Creatinine [Mass/Vol] 0.8 mg/dL Normal 0.5 - 1.3 mg/dL [facility] Remisol GFR/1.73 sq M.predicted among blacks MDRD (S/P/Bld) [Vol rate/Area] mL/min/1.73 m2 Normal >=59mL/min/1.73 m2 [facility] Chem S GFR/1.73 sq M.predicted among non-blacks MDRD (S/P/Bld) [Vol rate/Area] mL/min/1.73 m2 Normal >=59mL/min/1.73 m2 [facility] Chem S Potassium [Moles/Vol] 4.2 mmol/L Normal 3.5 - 5.3 mmol/L [facility] Remisol Sodium [Moles/Vol] 134 mmol/L Low 135 - 145 mmol/L [facility] Remisol Urea nitrogen [Mass/Vol] 15 mg/dL Normal 5 - 21 mg/dL [facility] Remisol Consent for Anesthesiaon Consent for Anesthesia [id number]#1.0 0CD:127 Normal [facility] Creatinineon 08-31-2022 Creatinine [Mass/Vol] 0.8 mg/dL Normal 0.5-1.3 [facility] Comment on above: Performed By: #### 2 007269, 2205629, 1010720, 8088947, 45591527, 6121451 ####[facility] [id number] [place] [address] Discharge Instructionson Discharge Instructions [id number] .00CD:127 Normal [facility] Discharge Note-Nursingon Discharge Note-Nursing [facility] SPEARS:1955 Visit Date:08/30/2022 Inpatient Discharge Instructions Your Care Team Admitting Physician - Gwyn Garcia DO Referring Physician - Cam QUEVEDO, Gwyn Spencer Reason for Your Visit M17.11 Your Diagnosis Localized osteoarthritis of right knee Tests Performed ABO/Rh Antibody Screen Automated Diff BUN CBC w/ Auto Diff Creatinine eGFR Lytes XR Knee 1 or 2 Views Right This Is Your Medications List acetaminophen-oxycodon e (Percocet 5 mg-325 mg oral tablet) aspirin (aspirin 325 mg Tab) cephalexin (Keflex 500 mg Cap) docusate (Colace 100 mg Cap) levothyroxine (levothyroxine 137 mcg (0.137 mg) Tab) metoprolol (metoprolol 25 mg ER Tab) Procedure History Total knee replacement (08/30/2022), Breast lumpectomy, section, Cholecystectomy, Myringotomy. Discharge Vitals Temperature (Oral) 36.8 ?C Heart Rate (Monitored) 71 Respiratory Rate 17 Blood Pressure 147/81 What to do next Instructions From Your Doctor Event Name Event Result Discharge Activity Ambulate as tolerated, Arrange for a responsible adult supervision for 24 hours, Expect mild pain, Expect minimal amount of drainage and/or bleeding, Do not lift more than 5 lbs Discharge Restrictions No driving, Do not operate machinery or tools, Do not make important decisions for 24 hours, Do not drink alcoholic beverages for 24 hours Discharge Diet(s) Regular, Drink liquids and eat a light meal Call Your Doctor For Persistent or heavy bleeding, Temperature above 101.5 degrees, Redness, swelling, or pus at operative site, Severe pain at the operative site, Persistent vomiting Wound Care Remove dressing as instructed Remove Dressing On 10 Discharge Instructions Discharge Instructions New Follow Up Appointments after Discharge Follow Up with Gwyn Garcia When: 09/29/2022 09:30 AM EST Comments: Keep scheduled appointment Where: [address] [place] [phone]- Business (1) Follow Up with CAMILLE WILLIAMSON When: 09/03/2022 09:00 AM EST Where: [facility] [place] [address]- Business (1) Medications What How Much When Why Instructions Next Dose Unchanged acetaminophen-oxycodon e (Percocet 5 mg-325 mg oral tablet) See instructions Localized osteoarthritis of right knee take one to two every 4 hours as needed for knee replacement pain [id number], AFTER 10 AM Unchanged aspirin (aspirin 325 mg Tab) 1 Tablets By Mouth Every day Duration: 30 Days Start the day after knee replacement surgery [facility] 09/01 @ 9 AM Unchanged cephalexin (Keflex 500 mg Cap) 1 Capsules By Mouth 4 times a day Duration: 5 Days Start the day after knee replacement surgery [facility] 08/31 @ 12 PM Unchanged docusate (Colace 100 mg Cap) 1 Capsules By Mouth 2 times a day [facility] 08/31 @ 9 PM Unchanged levothyroxine (levothyroxine 137 mcg (0.137 mg) Tab) 1 Tablets By Mouth Every day 09/01 @ 9 AM Unchanged metoprolol (metoprolol 25 mg ER Tab) 1 Tablets By Mouth Every day 09/01 @ 9 AM Pharmacy Information [facility] #[id number]: [address], [place] [id number] [phone] Test Results CBC BMP WBC: 9.7 E9/L (08/31/22 05:32:00) BUN: 15 mg/dL (08/31/22 05:32:00) RBC: 4.7 E12/L (08/31/22 05:32:00) Creatinine: 0.8 mg/dL (08/31/22 05:32:00) HGB: 14 gm/dL (08/31/22 05:32:00) Sodium Lvl: 134 mmol/L Low (08/31/22 05:32:00) Hct: 41.7 % (08/31/22 05:32:00) Potassium Lvl: 4.2 mmol/L (08/31/22 05:32:00) MCV: 88.2 fL (08/31/22 05:32:00) Chloride: 101 mmol/L (08/31/22 05:32:00) MCH: 29.7 pg (08/31/22 05:32:00) CO2: 26 mmol/L (08/31/22 05:32:00) MCHC: 33.7 gm/dL (08/31/22 05:32:00) AGAP: 11 mEq/L (08/31/22 05:32:00) RDW: 13.9 % (08/31/22 05:32:00) Platelet: 240 E9/L (08/31/22 05:32:00) MPV: 7.9 fL (08/31/22 05:32:00) Allergies No Known Medication Allergies Devices Implanted/Removed This Visit Notice: You have devices implanted this visit that may not be MRI compatible. Implanted KNEE TOTAL ARTHROPLASTY Knee R ATTUNE FEMORAL POSTERIOR STABILIZED SIZE 5N RIGHT CEMENTED 08/30/2022 ATTUNE KNEE SYSTEM TIBIAL BASE FIXED BEARING SIZE 5 CEMENTED 08/30/2022 ATTUNE PATELLA MEDIALIZED DOME 32MM CEMENTED AOX 08/30/2022 ATTUNE TIBIAL INSERT FIXED BEARING POSTERIOR STABILIZED SIZE 5 10MM AOX 08/30/2022 CEMENT SIMPLEX PLAIN VISCOSITY HIGH [6194-1-010] (2), 08/30/2022, Unknown - RODDY: {[id number]{10} [id number] [employer] [place], [place] [facility] DISCHARGE INSTRUCTIONS TOTAL KNEE ARTHROPLASTY INCISION CARE: Mepilex dressing can get wet with showers. Please remove 10 days after surgery per instruction sheet. If poly present, please coordinate removal 21 days after surgery with office staff. Please notify the office if any increase i (more content not included)... Normal [facility] HEMATOLOGYOrdered By: SYSTEM SYSTEM on 08-31-2022 Basophils/100 WBC (Bld) 0.2 % Normal 0.0 - 2.0 % [facility] Basophils/Leukocyte s Auto (Bld) [Pure # fraction] 0.0 E9/L Normal 0.0 - 0.2 E9/L [facility] Eosinophils/100 WBC (Bld) 0.1 % Normal 0.0 - 8.0 % [facility] Eosinophils/Leukocy julia Auto (Bld) [Pure # fraction] 0.0 E9/L Normal 0.0 - 0.5 E9/L [facility] Lymphocytes/100 WBC (Bld) 10.8 % Low 14.0 - 50.0 % [facility] Lymphocytes/Leukocy julia Auto (Bld) [Pure # fraction] 1.0 E9/L Normal 1.0 - 4.0 E9/L [facility] Monocytes/100 WBC (Bld) 8.1 % Normal 4.0 - 14.0 % [facility] Monocytes/Leukocyte s Auto (Bld) [Pure # fraction] 0.8 E9/L Normal 0.2 - 1.0 E9/L [facility] Neutrophils/100 WBC (Bld) 80.8 % High 36.0 - 75.0 % [facility] Neutrophils/Leukocy julia Auto (Bld) [Pure # fraction] 7.8 E9/L High 2.0 - 7.5 E9/L [facility] HEMATOLOGYOrdered By: Annalise Maciel on 08-31-2022 Erythrocyte distribution width (RBC) [Ratio] 13.9 % Normal 10.9 - 14.2 % [facility] Hematocrit (Bld) [Volume fraction] 41.7 % Normal 34.0 - 46.0 % [facility] Hemoglobin (Bld) [Mass/Vol] 14.0 g/dL Normal 12.0 - 16.0 gm/dL [facility] MCH (RBC) [Entitic mass] 29.7 pg Normal 27.0 - 34.0 pg [facility] MCHC (RBC) [Mass/Vol] 33.7 g/dL Normal 31.4 - 36.0 gm/dL [facility] MCV (RBC) [Entitic vol] 88.2 fL Normal 80.0 - 100.0 fL [facility] Platelet mean volume (Bld) [Entitic vol] 7.9 fL Normal 6.4 - 10.8 fL [facility] Platelets (Bld) [#/Vol] 240.0 E9/L Normal 150.0 - 500.0 E9/L [facility] RBC (Bld) [#/Vol] 4.7 E12/L Normal 4.3 - 5.9 E12/L [facility] WBC corrected for nucl RBC Auto (Bld) [#/Vol] 9.7 E9/L Normal 4.0 - 11.0 E9/L [facility] Interdisciplinary Note - Karsten e Manageron 08-31-2022 Interdisciplinary Note - Camp Assistant CRM to room to discuss DC planning. Patient is awake, alert and oriented. She has no family in room. She is from home, lives with Son. Has family transportation at [place]. Patient verified home DME, insurance and PCP. Patient is same day surgery following a Total Knee. Patient was rounded on by Dr Garcia, see notes. Plan is to DC home with [facility] once cleared by Pt/ Ot. Patient was provided CRM contact number and info, white board updated. Anticipated DC today. CRM following DC nurse reported to CRM that patient getting dizzy, difficulty ambulating to BRP. Message was sent to Tammy Mendiola to inform her and to ask about DC planning. If patient should stay another day or change DC plan, awaiting to hear back Per primary Nurse Dr Bojorquez called and patient will DC home today She was requesting to stay over night Normal [facility] Comment on above: Result Comment: Elec tronically Signed By: Lili Wing\.br\Date and Time Signed: 08/31/22 15:12 EST Interdisciplinary Note - Arabella n 08-31-2022 Interdisciplinary Note - OT OT six clicks score = HH services. Patient requires Min A w/ LE self care, but, reports her son normally assists w/ donning shoes/socks. Ed pt on available dme to improve Ind w/ Le self care and resources to obtain. Pt already has a ets, bsc, and shower chair in place at home. Patient was also educated on walker safety in context of standing adls/Iadls. No further inpatient OT needs. DC inpatient OT services. Normal [facility] IntraOperative Documentson 0 08-31-2022 IntraOperative Documents [id number] 0CD:127 Normal [facility] Lyteson 08-31-2022 Anion gap [Moles/Vol] 11 mmol/L Normal 6-16 [facility] Comment on above: Performed By: #### 2 [id number], [id number], 0150566, 8957898, [id number], [id number] ####[facility] [address] [place] [address] Chloride [Moles/Vol] 101 mmol/L Normal 101-111 [facility] Comment on above: Performed By: #### 2 [id number], 1608804, 3469164, 7362304, [id number], 4888397 ####[facility] [address] [place] [address] CO2 [Moles/Vol] 26 mmol/L Normal 21-31 [facility] Comment on above: Performed By: #### 2 882146, 7918141, 3370171, 3601182, [id number], 6448880 ####[facility] [address] [place] [address] Potassium [Moles/Vol] 4.2 mmol/L Normal 3.5-5.3 [facility] Comment on above: Performed By: #### 2 213940, 3902206, 6756372, 0682716, 46750626, 9191993 ####[facility] [address] [place] [address] Sodium [Moles/Vol] 134 mmol/L Low 135-145 [facility] Comment on above: Performed By: #### 2 107629, 8019040, 8695533, 1263019, 38050799, 8819711 ####[facility] [address] [place] [address] Operative Reporton Operative Report SURGERY DATE: 08/30/2022 PREOPERATIVE DIAGNOSIS: Right knee end-stage osteoarthritis with antalgic gait compounded by morbid obesity, BMI greater than 40 POSTOPERATIVE DIAGNOSIS: Right knee end-stage osteoarthritis with antalgic gait compounded by morbid obesity, BMI greater than 40 OPERATION: Right total knee arthroplasty compounded by morbid obesity, BMI greater than 40 ANESTHESIA: General block combination ANESTHESIOLOGIST: Hossein Foster CRNA ESTIMATED BLOOD LOSS: Zero SPECIMEN: Bone IMPLANTS UTILIZED: DePuy Attune knee system with a #5 cemented PS right femur, a #5 cemented fixed tibial tray, 10 fixed PS insert and a 35 mm cemented patellar button HISTORY AND INDICATIONS: Ceci is a 67 year old female with progressive bilateral knee bone on bone disease that has been recalcitrant to physical therapy, corticosteroid and viscosupplementation injections. She does have compounding factor of BMI over 40. This does increase preoperative need as well as morbidity and mortality. She has lost significant weight in the last year approximately 80-90 pounds and has gotten to the point where she still cannot walk. Total knee arthroplasty is indicated. Family members are present from [place] to assist with her care perioperatively. Request for anesthesia block was made to cut down on her intraoperative needs as well as postoperative pain control. Site is marked preoperatively. All questions are answered preoperatively. The consent form is signed and witnessed for right total knee arthroplasty compounded by obesity. Please see office notes and history and physical. Grade IV severe degenerative changes are noted on x-ray of both knees. PROCEDURE IN DETAIL: Ceci is taken to the Operating Room and placed in the supine position. Anesthesia is provided. Well padded tourniquet is placed on the right upper thigh. The leg is prepped and draped in sterile fashion. Timeout procedure occurred consistent with the consent form, history and physical and preoperative marked site. Landmarks are identified. Once timeout is confirmed the leg was exsanguinated. Midline incision was made of approximately 6 . Medial parapatellar arthrotomy is performed and the patella is everted. There is end-stage tricompartmental degenerative changes that are noted of the medial patellofemoral joint. Large soft tissue envelope is noted with increased needs for perioperative exposure and help. The patella is appropriately cut and retracted. Irrisept was utilized the procedure in multiple stages and the intramedullary drill and jig device were placed in the femur, a 5 degree valgus cut taking off 11 mm was performed. This was sized at a #5 Biocycleuy Attune. Anterior posterior chamfer cuts as well as posterior stabilized box cut was performed. Anterior cruciate ligament and posterior cruciate ligament were resected. Collateral ligaments were protected and balanced. Meniscal remnants were removed. Intramedullary drill and jig device were placed in the tibia. The tibia was cut. Gaps were symmetrical. Posterior gutters were clean and free. Tibia was prepared for a #5 fixed tray. Trial components were placed with full extension, flexion to approximately 102 degrees with adipose impingement of her soft tissue envelope. The patellofemoral tracking was appropriate with a 35 mm button. All trial components were removed. The Irrisept was allowed to soak followed by Exparel injection of 100 cc along the capsule, gutters and subcutaneous tissues. Pulsed lavage irrigation was performed. The Isabel Simplex cement was mixed. All components were cemented in place and allowed to harden for 16 minutes. All cement osteophytes were removed. It was taken through arc of motion and deemed stable. 2 grams of Tranexamic acid is placed subfascially. Fascial layer is closed with #2 Quill suture in a running fashion. 2-0 Quill suture closed the subcutaneous tissues. [place] were applied with her thin skin as well as increased BMI. Mepilex dressing with soft roll wrap was provided. Tourniquet was deflated. The patient awakened from anesthesia and transferred to the Recovery Room in stable and satisfactory condition. CASE: Clean and elective SPONGE AND NEEDLE COUNT: Correct SPECIMEN: Bone PATIENT CONDITION: Satisfactory Wesley Conte Dictated: 08/30/2022 [id number] Transcribed: 08/31/2022 cc:Camille Williamson M.D. [facility] Comment on above: Result Comment: Elec tronically Signed By: Gwyn Garcia DO\.br\Date and Time Signed: 08/31/22 17:58 EST Operative Report SURGERY DATE: 08/30/2022 PREOPERATIVE DIAGNOSIS: Postoperative pain control requested by patient and surgeon POSTOPERATIVE DIAGNOSIS: Postoperative pain control requested by patient and surgeon OPERATION: Right adductor canal block utilizing ultrasound guidance ANESTHESIA: Local with monitored anesthesia care PROCEDURE: The patient was interviewed and examined. The anesthesia options were discussed including adductor canal block for postoperative analgesia. The discussion included the procedure, risks and benefits and alternatives to the procedure. The patient's questions were all answered and the patient elected to proceed with the adduction canal block for postoperative pain relief. The patient was placed on the monitors, electrocardiogram, noninvasive blood pressure machine and pulse oximetry. I.V. sedation was then administered with a total of 2 mg of Versed. The mid thigh was prepped with ChloraPrep and sterilely draped. The anatomy was identified with ultrasound and then under ultrasound guidance, the femoral nerve was identified with a 21 gauge 100 mm needle. After attempted aspiration for blood, a solution of 20 mL of 0.5% ropivacaine was slowly injected with frequent aspirations without signs or symptoms of intravascular injection. The patient tolerated the procedure well. There were signs and symptoms of a block within minutes after completion of the procedure. The patient then proceeded to undergo general anesthesia for the proposed procedure. CHET Wong Dictated: 08/30/2022 [id number] Transcribed: 08/31/2022 [facility] Comment on above: Result Comment: Elec tronically Signed By: Hossein Foster CRNA.param\Date and Time Signed: 08/31/22 11:17 EST Patient Education - Texton 0 08-31-2022 Patient Education - Text [place], [place] [facility] DISCHARGE INSTRUCTIONS TOTAL KNEE ARTHROPLASTY INCISION CARE: Mepilex dressing can get wet with showers. Please remove 10 days after surgery per instruction sheet. If poly present, please coordinate removal 21 days after surgery with office staff. Please notify the office if any increase in redness, tenderness, drainage, fever, or wound separation is noted beyond this point. Compression stockings may be helpful if any significant or uncomfortable swelling in the legs is noted postoperatively. Use and removal instructions should be given by physical therapy. If the swelling is below the knee, knee high compression stockings may suffice. If this does cause swelling into the thigh region, waist high compression stockings may be beneficial as well. These can be obtained from most pharmacies, or can be obtained from the hospital or through Home Health. The mild grade compression stockings are best used initially. MEDICATIONS: You may resume your home medications at the time of discharge. Aspirin 325 mg EC oral once a day for 4 weeks for blood clot prevention with meals. Please notify your doctor if you have a stomach sensitivity to Aspirin or history of previous stomach ulcers. Pain medication has been prescribed as well. You may continue to use the pain medication every four hours as needed. Any narcotic pain medication can cause side effects including stomach upset, constipation, or light-headedness. You should not drive or operate machinery, or use alcohol while using the narcotic pain medication. You should not use other pain medications with this prescription pain medication unless further directed by your physician. PHYSICAL THERAPY: Continue the range of motion and strengthening exercises initiated in Physical Therapy in the hospital. [facility] Discharge Instructs for TKA Page 2 Physical Therapy Cont. Continue weight bearing, as ordered, to the operated knee for four to six weeks as directed in Physical Therapy, or until your strength is improved and Physical Therapy will then allow you to progress to full weight. This will be with the use of a walker or crutches initially. After four or six weeks you may then progress to the use of one crutch, or a cane. A quad-cane is preferred as this is more stable. Physical therapy as begun in the hospital will continue at home, possible with the farm assistant of Home Health Physical Therapy or in the hospital as an outpatient. When you have become independent with the physical therapy program, this will then be discontinued as a supervised program and you will be instructed to continue the physical therapy exercises at home. Your exercises are ribera to successful rehabilitation. You should gain full extension first, hopefully before hospital discharge, then continue to do the exercises to maintain this, and gain 90 degrees flexion by one month post-op. Do the exercises daily, twice if preferred. DRIVING: Please do not drive for 4-6 weeks pending therapy progress. Driving too soon, you are considered an impaired hammer driver, and 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 It is therefore advised not to drive until after your first office visit following surgery FOLLOW-UP OFFICE VISIT: __ Gwyn Garcia DO [facility] [address] [place] [address] Reviewed: 12-04 [facility] Preoperative Documentson Preoperative Documents [id number] 0CD:127 [facility] Progress Note-Physicianon Progress Note-Physician Patient: CECI SPEARS Age: 67 years Sex: Female : 1955 Associated Diagnoses: None Author: Gwyn Garcia DO Chief Complaint Total Knee Arthroplasty POD #1 Review of Systems Constitutional: No fever, No chills. Respiratory: No shortness of breath. Cardiovascular: No chest pain. Psychiatric: Negative. Health Status Allergies: Allergic Reactions (All) No Known Medication Allergies Problem list: All Problems Knee osteoarthritis / SNOMED CT 750349295 / Confirmed Hypothyroid / SNOMED CT 40421343 / Confirmed Physical Examination Gastrointestinal: Soft, Non-tender. Musculoskeletal Mobility/ gait: requires assistance. Lower extremity exam: Swelling as expected. Supple calves.. AROM-PROM limited due to dressing and pain.. Neurologic: Alert, Oriented, Normal sensory, Normal motor function. Psychiatric: Appropriate mood & affect. Review / Management Radiology results: Xray in Recovery Room shows stable position and alignment.. Impression and Plan Diagnosis POD #1 Right TKA comp by obesity BMI>40. Orders Continue mechanical and pharmacologic DVT prophylaxis. Analgesics. PT and OT services. . D/C home today. [facility] rehab out tomorrow. F/U in 4 weeks.. Normal [facility] Comment on above: Result Comment: Elec tronically Signed By: Gwyn Garcia DO\.br\Date and Time Signed: 08/31/22 07:22 EST eGFRon 08-31-2022 GFR/1.73 sq M.predicted among blacks MDRD (S/P/Bld) [Vol rate/Area] mL/min/{1.73_m2} Normal >=59 [facility] Comment on above: Order Comment: Order added by Discern Expert. Result Comment: eGFR is race adjusted. AA=. Performed By: #### 2 994704, 5145959, 0537199, 9094695, 21972398, 8374277 ####[facility] [address] [place] [address] GFR/1.73 sq M.predicted among non-blacks MDRD (S/P/Bld) [Vol rate/Area] mL/min/{1.73_m2} Normal >=59 [facility] Comment on above: Order Comment: Order added by Discern Expert. Result Comment: Music Video Director taylor kidney disease could be indicated at eGFR's of less than 60 mL/min/1.73m2. Kidney failure is indicated at less than 15 mL/min/1.73m2. Performed By: #### 2 733998, 4638743, 3283788, 5264654, 27860161, 6643768 ####[facility] [address] [place] [address] ABO/Rhon 08-30-2022 ABO/Rh Positive Invalid Interpretation Code [facility] Comment on above: Performed By: #### 2 988232, 9730505, 82164743, 8436065, 0425024, 4013485 #### [facility] [address] [place] [address] ABO/Rh History Checkon 08-30 ABO/Rh History Check Verified Hx Blood Type Normal [facility] Comment on above: Performed By: #### 2 020151, 9627727, 10579236, 4610711, 6777707, 7655804 #### [facility] [address] [place] [address] ABSCon 08-30-2022 ABSC Gel Interp Negative Normal [facility] Comment on above: Performed By: #### 2 891772, 8755725, 36108752, 9257866, 8236097, 9607119 #### [facility] [address] [place] [address] BLOOD BANKOrdered By: Maritza Sepulveda on 08-30-2022 ABO/Rh Interp Positive Invalid Interpretation Code [facility] BB Subsection ABSC Gel Interp Negative (08/30/22 10:25 AM) Normal [facility] BB Subsection Blood Bank ID#on 08-30-2022 BBID# [id number] Invalid Interpretation Code [facility] Comment on above: Performed By: #### 2 601549, 5253880, [id number], 3242812, 0711861, 1342590 #### [facility] [address] [place] [address] Consent for Treatmenton Consent for Treatment [id number] 0CD:127 Normal [facility] H&P Updateon 08-30-2022 H&P Update [id number]. 00CD:127 Normal [facility] Main OR Intraoperative Recor don 08-30-2022 Main OR Intraoperative Record IntraOp Document Type FT Summary Primary Physician: Gwyn Garcia DO Finalized Date/Time: 09/02/22 08:03:57 Pt. Name: CECI SPEARS D.O.B./Sex: 1955 Female Med Rec #: [id number] Physician: Gwyn Garcia DO Financial #: [id number] Pt. Type: I Room/Bed: N317/01 Admit/Disch: 08/30/22 09:34:47 - 08/31/22 16:41:00 Institution: Case Times FT Entry 1 Patient Times In Room 08/30/22 12:15:00 Out Room 08/30/22 13:45:00 Procedure Times Start 08/30/22 12:41:00 Stop 08/30/22 13:36:00 Anesthesia Times Start 08/30/22 12:15:00 Stop 08/30/22 13:45:00 Block Timeout w08/30/22 11:39:00 Anesthesia Last Modified By: Ranjit BAHENA, Linda Calderon 08/30/22 13:45:09 General Comments: BLOCK DONE BY HOSSEIN FOSTER CRNA AT 1139 , ASSISTED BY King CAMEJO RN; HR = 66 , O2 = 98% -Clarence LOBATO RN 09/02/22 Chart opened to review and send charges [facility]FA Case Attendance FT Entry 1 Entry 2 Entry 3 Case Attendee Param ROSENBERG, Hossein Garcia DO, Gwyn Lobato RN, Linda Calderon Role Performed SUPERVISOR THROWING DEPARTMENT Surgeon - Primary Mail List Processor - Primary Time In 08/30/22 12:15:00 08/30/22 12:15:00 08/30/22 12:15:00 Time Out 08/30/22 13:45:00 08/30/22 13:33:00 08/30/22 13:45:00 Procedure KNEE TOTAL KNEE TOTAL KNEE TOTAL ARTHROPLASTY(Right) ARTHROPLASTY(Right) ARTHROPLASTY(Right) Comments DR. AMBROCIO SUPERVISING ORIENTATION Last Modified By: Jay CPR AMBULANCE DRIVER, Magui Lobato RN, Linda Lobato RN, Linda 09/02/22 08:01:36 Nuris P 08/30/22 Nuris P 08/30/22 13:45:10 13:45:10 Entry 4 Entry 5 Entry 6 Case Attendee Fabian Church RN, Tonya Bergeron CST, Heath Role Performed Mail List Processor - Primary ACCELERATOR TECHNICIAN Scrub - Primary Time In 08/30/22 12:15:00 08/30/22 12:15:00 08/30/22 12:15:00 Time Out 08/30/22 13:45:00 08/30/22 13:45:00 08/30/22 13:45:00 Procedure KNEE TOTAL KNEE TOTAL KNEE TOTAL ARTHROPLASTY(Right) ARTHROPLASTY(Right) ARTHROPLASTY(Right) Comments ACCELERATOR TECHNICIAN STUDENT Last Modified By: Ranjit RN, Linda Lobato RN, Linda Lobato RN, Linda Lawler P 08/30/22 Nuris P 08/30/22 Nuris P 08/30/22 13:45:10 13:45:10 13:45:10 Entry 7 Entry 8 Case Attendee Violette BAHENA, Emily Barrow Role Performed Staff - Other Staff - Other Time In 08/30/22 12:15:00 08/30/22 12:15:00 Time Out 08/30/22 13:45:00 08/30/22 13:45:00 Procedure KNEE TOTAL KNEE TOTAL ARTHROPLASTY(Right) ARTHROPLASTY(Right) Comments 2ND SCRUB 3RD SCRUB Last Modified By: Ranjit RN, Linda Lobato RN, Linda Lawler P 08/30/22 Nuris P 08/30/22 13:45:10 13:45:10 General Comments: TIFFANIE SAUNDERS - REP FOR DEPUY PRESENT FOR CASE - Clarence LOBATO RN [facility] - PRIMARY SCRUB FOR CASE - Clarence LOBATO RNwood buffer Protocols FT Pre-Care Text: Implements protective measures prior to operative or invasive procedure, confirms identity before the operative or invasive procedure, verifies operative procedure, surgical site, and laterality Entry 1 Procedure(s) KNEE TOTAL Patient Identity Birthday, Blood Band, ARTHROPLASTY(Right) Verified (select at ID Band Check, Patient least 2): Participation Consents / H and P Anesthesia Consent, Operative Site Present Verified HandP, Surgery/Procedure Marking Verified Consent, Transfusion Consent Surgical Site Yes Laterality Verified Yes Verified Procedure Verified Yes Correct Patient Yes Position Verified Availability Equipment, Implant Prep Dry n/a Verified (If Applicable) PreOp Antibiotic Yes Time Out Cam QUEVEDO, Gwyn Spencer, Given Participants Hossein Foster CRNA, Ferrer RN, Linda Lawler P, Fabian Church, Werner RN, Rubio Castaneda CST, Violette Joe RN, Garth Winslow Lauren R Time Out Complete 08/30/22 12:40:00 Outcomes Met? Yes Last Modified By: Linda Lobato RN 08/30/22 12:47:05 Post-Care Text: The patient is free from signs and symptoms of injury caused by extraneous objects Allergy Information FT Pre-Care Text: Verifies allergies Entry 1 Allergies Reviewed? Yes Allergies Reviewed Self/Patient With Outcomes Met? Yes Last Modified By: Linda Lobato RN 08/30/22 12:37:01 Post-Care Text: The patient received appropriate medication(s) safely administered during the perioperative period Surgical Procedures FT Entry 1 Procedure Description Procedure KNEE TOTAL ARTHROPLASTY Modifiers Right Surgeon Description RIGHT TOTAL KNEE ARTHROPLASTY COMPOUNDED BY OBESITY Primary Procedure Yes Primary Surgeon Gwyn Garcia DO Start 08/30/22 12:41:00 Stop 08/30/22 13:36:00 Anesthesia Type General Surgical Service Orthopedics Wound Class 1 - Clean Last Modified By: Linda Lobato RN 08/30/22 13:36:19 General Case Data FT Pre-Care Text: Classifies surgical wound, implements aseptic technique, initiates traffic control Entry 1 Case Information OR OR 4 FT Case Level Level 6 Wound Class 1 - Clean Specialty Orthopedics ASA Class 3 Preop Diagnosis M17.11 - Unil (more content not included)... Normal [facility] Main OR PACU I Recordon Main OR PACU I Record PACU Phase I Document Type FT Summary Primary Physician: Gwyn Garcia DO Finalized Date/Time: 08/30/22 14:52:15 Pt. Name: CECI SPEARS/Sex: 1955 Female Med Rec #: [id number] Physician: Gwyn Garcia DO Financial #: [id number] Pt. Type: A Room/Bed: Admit/Disch: 08/30/22 09:34:47 - Institution: Case Times PACU I FT Pre-Care Text: Identifies barriers to communication and implements measures to provide psychological support Develops individualized plan of care, and ensures continuity of care Maintains patient's dignity and privacy, and maintains patient confidentiality Identifies and reports philosophical, cultural, and spiritual beliefs and values Identifies individual values and wishes concerning care Implements aseptic technique, and administers prescribed antibiotic therapy and immunizing agents as ordered Evaluates postoperative tissue perfusion Implements thermoregulation measures, and monitors body temperature Evaluates postoperative respiratory status Evaluates postoperative cardiac status Evaluates postoperative neurological status Assesses pain control, collaborated in initiating patient-controlled analgesia and implements alternative methods of pain control Verifies allergies, administers prescribed medications and solutions, evaluates response to medications Entry 1 In PACU I 08/30/22 13:46:00 Discharge from PACU 08/30/22 14:28:00 I Outcomes Met? Yes Last Modified By: Ana Gonzalez RN 08/30/22 14:51:54 Post-Care Text: The patient demonstrates knowledge of the expected response to the operative or invasive procedure The patient's care is consistent with the individualized perioperative plan of care The patient's right to privacy is maintained The patient's value system, lifestyle, ethnicity, and culture are considered, respected, and incorporated into the perioperative plan of care The patient participates in decisions affecting his or her perioperative plan of care The patient is free from signs and symptoms of infection The patient has wound/tissue perfusion consistent with or improved from baseline levels established preoperatively The patient is at or returning to normothermia at the conclusion of the immediate postoperative period The patient's respiratory function is consistent with or improved from baseline levels established preoperatively The patient's cardiovascular status is consistent with or improved from baseline levels established preoperatively The patient's cardiovascular status is consistent with or improved from baseline levels established preoperatively The patient demonstrates and/or reports adequate pain control throughout the perioperative period The patient received appropriate medication(s), safely administered during the perioperative period Acuity Level PACU I FT Entry 1 Start Time 08/30/22 13:46:00 Stop Time 08/30/22 14:28:00 Acuity Level Acuity Level I Last Modified By: Ana Gonzalez RN 08/30/22 14:52:08 Finalized By: Ana Gonzalez RN Document Signatures Signed By: Ana Gonzalez RN 08/30/22 14:52 Normal [facility] Main OR Preoperative Recordo n 08-30-2022 Main OR Preoperative Record PreOp Document Type FT Summary Primary Physician: Gwyn Garcia DO Finalized Date/Time: 08/30/22 12:47:27 Pt. Name: CECI SPEARS /Sex: 1955 Female Med Rec #: [id number] Physician: Gwyn Garcia DO Financial #: [id number] Pt. Type: A Room/Bed: [facility] Admit/Disch: 08/30/22 09:34:47 - Institution: Case Times PreOp FT Pre-Care Text: Verifies consent for planned procedure, identifies individual values and wishes concerning care, includes family members in perioperative teaching Entry 1 Patient Times. In Pre Surgery 08/30/22 09:45:00 Out Pre Surgery 08/30/22 12:13:00 Outcomes Met? Yes Last Modified By: Linda Lobato RN 08/30/22 12:47:26 Post-Care Text: The patient participates in decisions affecting his or her perioperative plan of care Finalized By: Linda Lobato RN Document Signatures Signed By: Linda Lobato RN 08/30/22 12:47 Normal [facility] Monitor Recordon 08-30-2022 Monitor Record [id number]#1. 00CD:127 [facility] Monitor Record [id number]#1. 00CD:127 [facility] Operative Reporton Operative Report Patient: CECI SPEARS Age: 67 years Sex: Female : 1955 Associated Diagnoses: None Author: Gwyn Garcia DO Health Status Allergies: Allergic Reactions (Selected) No Known Medication Allergies Review / Management Results review: Lab results 08/30/2022 10:25 EST ABO/Rh Interp O POS ABSC Gel Interp Negative . Impression and Plan Diagnosis Pre-op dx-rt knee oa/pain/obesity BMI>40 Post-op dx-same Procedure-rt tka comp by obesity BMI>40 Anesthesia-gen EBL-0 TT-see nn To Recovery Room in stable and satisfactory condition.. Normal [facility] Comment on above: Result Comment: Elec tronically Signed By: Gwyn Garcia DO\.br\Date and Time Signed: 08/30/22 14:36 EST XR Knee 1 or 2 Views Righton 08-30-2022 XR Knee 1 or 2 Views Right Exam Date/Time: 08/30/2022 14:15 EST Reason for Exam: Post-op evaluation;Other (please specify) Report IMPRESSION: POSTSURGICAL CHANGES OF RIGHT TOTAL KNEE ARTHROPLASTY. EXAM: XR Knee 1 or 2 Views Right HISTORY: Postoperative evaluation total knee arthroplasty TECHNIQUE: Frontal and lateral views of the knee COMPARISON: Radiograph since the knee 06/29/2022 FINDINGS: Postsurgical changes of total knee arthroplasty including soft tissue emphysema. Alignment is anatomic. No periprosthetic abnormality. 1.8 cm calcification along the posterior aspect of the knee most likely represents a loose body within a Londono's cyst. FINAL REPORT Dictated: 08/30/2022 3:05 pm Wilman Ghotra DO Signed (Electronic Signature): 08/30/2022 3:05 pm Signed by: Wilman Ghotra DO Transcribed by: AUSTIN Technologist: IDALIA [facility] Inpatient Patient Summaryon 08-26-2022 Inpatient Patient Summary [address] [address] [facility] Clinical Discharge Instructions PERSON INFORMATION Name: CECI SPEARS [facility]#:[id number] PHYSICIANS Admitting Physician: Gwyn Garcia DO Attending Physician: Gwyn Garcia DO PCP: CAMILLE WILLIAMSON MD Discharge Diagnosis: Localized osteoarthritis of right knee Comment: PATIENT EDUCATION INFORMATION Instructions: Cam - Total Knee Arthroplasty (CUSTOM) Medication Leaflets: Follow up: With: Address: When: Gwyn Garcia [address] [place] [address] [facility] [place] ([place]) Comments: Keep scheduled appointment Type Location Start [facility] Surgical Services 08/30/2022 12:30 PM 08/30/2022 1:30 PM Confirmed MEDICATION LIST Medications to Continue with No Changes Other Medications diclofenac (diclofenac sodium 75 mg Oral EC Tab) 1 Tablets By Mouth every day. levothyroxine (levothyroxine 137 mcg (0.137 mg) Tab) 1 Tablets By Mouth every day. Comment: [facility] Outpatient Surgery Discharge Instructionon 08-26-2022 Outpatient Surgery Discharge Instruction [place] [id number] Patient Discharge Instructions PERSON INFORMATION Name: CECI SPEARS Date of : 1955 Current Date: 08/26/2022 18:11:21 PHYSICIANS Admitting Physician: Gwyn Garcia DO Discharge Diagnosis: Localized osteoarthritis of right knee MARKOS CECI has been given the following list of follow-up instructions, prescriptions, and patient education materials: PATIENT FOLLOW-UP INFORMATION Diet: Regular, Drink liquids and eat a light meal Discharge Activity: Ambulate as tolerated, Arrange for a responsible adult supervision for 24 hours, Expect mild pain, Expect minimal amount of drainage and/or bleeding, Do not lift more than 5 lbs Discharge Restrictions: No driving, Do not operate machinery or tools, Do not make important decisions for 24 hours, Do not drink alcoholic beverages for 24 hours Call Your Doctor For: Persistent or heavy bleeding, Temperature above 101.5 degrees, Redness, swelling, or pus at operative site, Severe pain at the operative site, Persistent vomiting Wound Care Instructions: Remove dressing as instructed Remove Your Dressing In 10 Days IF UNABLE TO CONTACT YOUR PHYSICIAN AND YOU FEEL IT IS AN EMERGENCY, GO TO THE NEAREST EMERGENCY ROOM OR CALL 911 I, CECI SPEARS, have received the attached patient education materials/instructions and have verbalized understanding: May we do a follow up call? Yes No I was present when discharge instructions were given Patient Signature Date Clinican/Nurse Signature ___ Date Follow up: With: Address: When: Gwyn Garcai [address] [place], [place] [id number] Business (1) Comments: Keep scheduled appointment Type Location Start [facility] Services 08/30/2022 12:30 PM 08/30/2022 1:30 PM Confirmed Pharmacy Information: You may receive a survey from Kelly Rogel asking you to rate your care experience. Your feedback is important and will help us understand what we do well and how we can improve the quality of care we provide to you, your loved ones and our community. It?s an honor to serve you. Thank you for choosing [facility] HERE ARE THE MEDICATION CHANGES THAT OCCURRED DURING YOUR HOSPITAL STAY Medications to Continue with No Changes Other Medications diclofenac (diclofenac sodium 75 mg Oral EC Tab) 1 Tablets By Mouth every day. levothyroxine (levothyroxine 137 mcg (0.137 mg) Tab) 1 Tablets By Mouth every day. PATIENT EDUCATION INFORMATION Instructions: [place], [place] [facility] DISCHARGE INSTRUCTIONS TOTAL KNEE ARTHROPLASTY INCISION CARE: Mepilex dressing can get wet with showers. Please remove 10 days after surgery per instruction sheet. If poly present, please coordinate removal 21 days after surgery with office staff. Please notify the office if any increase in redness, tenderness, drainage, fever, or wound separation is noted beyond this point. Compression stockings may be helpful if any significant or uncomfortable swelling in the legs is noted postoperatively. Use and removal instructions should be given by physical therapy. If the swelling is below the knee, knee high compression stockings may suffice. If this does cause swelling into the thigh region, waist high compression stockings may be beneficial as well. These can be obtained from most pharmacies, or can be obtained from the hospital or through Home Health. The mild grade compression stockings are best used initially. MEDICATIONS: You may resume your home medications at the time of discharge. Aspirin 325 mg EC oral once a day for 4 weeks for blood clot prevention with meals. Please notify your doctor if you have a stomach sensitivity to Aspirin or history of previous stomach ulcers. Pain medication has been prescribed as well. You may continue to use the pain medication every four hours as needed. Any narcotic pain medication can cause side effects including stomach upset, constipation, or light-headedness. You should not drive or operate machinery, or use alcohol while using the narcotic pain medication. You should not use other pain medications with this prescription pain medication unless further directed by your physician. PHYSICAL THERAPY: Continue the range of motion and strengthening exercises initiated in Physical Therapy in the hospital. [facility] Discharge Instructs for TKA Page 2 Physical Therapy Cont. Continue weight bearing, as ordered, to the operated knee for four to six weeks as directed in Physical Therapy (more content not included)... [facility] Consent for Procedure/Surger yon 08-25-2022 Consent for Procedure/Surgery [id number]#1.0 0CD:127 [facility] Immunization Recordson 08-25 Immunization Records [id number]#1.0 0CD:127 [facility] Outside Recordson 08-25-2022 Outside Records [id number]#1.0 0CD:127 [facility] Coding Summary.on 08-12-2022 Coding Summary. CD:[id number] Gh 0bWw+PGhlYWQ+AR9AKLNuI 08jqTPpnO3CD6dXOZ1UJHT ZPBFURR4BAY3hfHR2IXxkO 2VybiAv UkmvuGNnIO83VTj5ART8wO ckNEqewD3mvDOoY5g9VlAj II69uI08OKtwXHIfNnE7Ei ZpbjsgbWFy Y2frIfLhqZMyAda+PHRhYm xlIHdpZHRoPScxMDAlJyBz dKhxNM2cLd7bFIJcRAZmjL xhcHNlOiBj m1usZIMxKMiuXU3puFjyL6 KydUH0KWNfr8n5Vf86fTG+ JLFyCDL9rKpeANpcg404Id Mnz7gjOXY8 fSOgDOppQIE8O55nl4M5WD AtSKXbILD1rWX9vF5osEbl srrkS1ZekRGgLoZ0RXJ9dX DgsF7hoKuy xyshxV9pTtx+C97BRC2XFM ICUP3TFdn5R5UkSyeywDO+ QB01CSFgEI54iDDqeZMfd9 ffgUj9ZkQz AKVmTBO5cAqoMNymu3FyKN CbX40qpKWtk6X0BWWxzKbv gEIqJxDssLO1aZ4rPVucvr fmg6zgfaof Xetom5kmnd35iE46P66pGA uuCLNjXFL9UDArCUBpxHjx lw3beI8eNq1+VAcph8wes0 xlfTn7HfSe GPIakdQnzFqoHNE7s2KhJm 84O6YldXwho6SlDyl1hq27 nDTwp7D5aKF7GWtfQUAhcB 5yVDypGnZ5 EQRoPxRjgK46rTKeUJdgTo 8arVhfaWzeDL5zNOHanrrq NEUwiI2cGIXuaEVzfLuqXJ 4wNTBpbjtm w501GqFrGEX3KKQqwENtO5 AtjV7kVuHjFBAoSEGtN1Dy hNUmJVpvS789RUxpGcY8LJ WlixQpN7Ic GSMboHvsEhA5s9B1Zg5Lf4 BdimkbDWT4HAjsYVLcTtL8 QpEeAmU4R8DjBiq4JMBpiA sxBH3gS5Wz PILjmrbyhwgpoVV9VTOyBV GhoB42lEDuRGjpUk7oa3W6 d951XRJsZHXlfL06Nv8heY ogMTBwdCBU fH0siykga0enxpqdNhIgJY BoJNa6MBj1LEZthRruZtZi ISX3HhP9VVY6gKZvqQ5raR tatpbcmL1u Oyc+V32cqD9oDVU9QAY9da dyROSngdGpDB80WM66V6Ak PjwvdGFibGU+PGRpdiBzdH vvJF9qNaNf k8hsu6KzKOoaS0VhTYQoRH vqRcx6WEMzTBC3oYB5hV6q JLTjKItxh8M7fBH8F4Izpk Lppi5wh7gx DSBwSQulG22vfQJug0D4MS UofNJ1FRBqqWdlExMwfS77 Oyc+IWLjhJunl4EwZygrm9 olt3cwhPa2 PyEjXKDwkaPnvFfeMVO0o9 DlBj62L35bJLsoYRJgMNAn LGWnCQKaaZqqdz7ttX4hPn 8+PGNvbCB3 rGU6lF8nYVJcKzP9FLcnZ9 01AkRedTOkMqkqx3ucc0ca jXz7ExTnPTJiyaLadJstEC D7r7HvQf14 Q99zDOjtRIKgXCSvCSLgYB VxlBmefd1gzO8rDq0+PC9j h5vtlz71kK85kTI+PHRkIH C9gTsuXBol QBLtsP9kYTpmTmW1RAArNy QmkR26lQXiSTtxTb0ujRxw oVnlTA1mVQVjplqzn458Ty Way2siBTTc mCOzHDvoHLW9Z44xx9O8ZM KkWDEbILB0mII9vG2lyPro bjogbGVmdDsgdmVydGljYW kgRYrhR945 IHRvcDsnPlBhdGllbnQgTm KcQWv6G2XrRrg8QNNenFca PH7mcBZvEExyRv4kkOzlvQ tkDO3uBOMp pawqq958ChFcc6emVBTipI DsNHddXNY0R05my9E4QMTf IUCuUJD2fNH3uD6rjDzmlr ogbGVmdDsg ciFwdJwyPEynRYfwM183XH RvcDsnPkJpcnRoIERhdGU6 IR19ZJ62iSZaa0V5zYZ2E1 BhZGRpbmct taoclEZ9OVMxDANwxN99Hf 1mcVtjHh3iSDZiMOL4HXYq zRXnR8QicQ0iHsPpRJSaAF FjE3FssRTb NYksK939MNeeLkB4SUXnwi TbP0RnQDKwnYbfVdO3x3E9 Ke7ME7Q9BN68TM98kVQwj8 I5iNQ7Y1Dv YXYualfkvfqvbBB9QKSsST UwtS24Yf9qvPuhXu0vRUAl YPX8JIBvaTJeU3ZohG6wOa AjMDAwMDAw T1ZnhSQiCQylG421FRycDs N2LHMsqfHaY8YtLPNnoWah CgJ8n1N0On5XZFl4JW34GV 21iMUlx4M2 yIW2D3DrZXCtfcrxmcpxhU K5GQEdEPBdxY82Iv2poMru Kl6tCCJmBXN5JGLlaSJiH7 AkjZ7xDaNe EWYmDVMkB8TevNYhOZcsS6 62AJwfUnN5JWIzcaBkN6Nx PBJicTgyKmV2a0L9Tb7MKT HpDY12ZPP6 vYO3TQ63XR79G0RzTnnbcE FibGU+PHRhYmxlIHdpZHRo ZLhlICYfEdZxtTnqBF1gHc 9yZGVyLWNv cVyxuGSiEnNql1aeAQSlNW wcQP4ctCopD6IlrGN4PJMn b4b2Gb76P65yY1WqgHW+PG IisIX0lWD6 xV1sKiFoJgP8AWerK615Kq NndQUdOwbcs4mmq5xfbYf8 KqN8AAPgiwUjsJltNPC7a7 OfJe12L91w IHdpZHRoPSIxNSUiIHZhbG erht7cqN0wPv3+PGNvbCB3 mZO2tT7xVwEiQrF8ASgeB6 49InRvcCIv Pycys9rau9ucaBl2VeIfUV WnamFsnAkuOAE7u3JxSq24 C4NpqQnfv1ShFgc6la58kD Cjv4R6xHY5 J0IlCNVdtfmpnIWyxPkmVV 3xYUMhoanfNASigM4uDZBb F2n4WlOiBaF1UGdrS6Dxcb R1URAqtCCm OWggECU2Q89bj1T3XXYuYB GhVFM9tPH4iG7mfRqvbzfn bGVmdDsgdmVydGljYWwtYW ljQ734JISk vYufVVUbgK2hJBXuiRNzcL ecNN8xRDCzomapDvIEEGNR UNXJZXPmUMBMX1OXFX03IG 97pHFud4Q2 zLH6Y3GuJEAonvfudfxrsE R9DWZxRBFerT31sLMmAYhj Fh5rf0W4h648BFZxIYBgfY 99Oi7qsAkg ERPbeLVFpL0baghlu5bcwd ugLvHtPCPpJRg5VCe4KKXw wVurGrCkRKD9PwP1EHL5sO YgeW6vyAem gysiiZ8eOzd+MDYvMDUvMT t3OMymaCJ+WSPaTZS4wRja NNcrNVXmwT1mVZNsX3t1Gw AtFeO2ATlp J8BoHOAxmpbzWn25zB2jRz EkZjB5MNifT0CasnC8ZRYh sJPdRUwjMUQ6H19dl2X3SE MwMDAwMDA7 eAN5cU6ylZalburliRMzjT wkicYtpCdiFKuhVQkuP075 CXBitRecLlW7ONwiYBMwHV 53RM13uAEy k0G5nTB3I9YoUTYkcpvpoq ttdST3SQXwYQTsmE14sVOu BTabYc4aa0J7j474YLAwNX BfdS28Iq5e hWjeLGWgqHFNoP7chcpip8 hgsgrmLxAtUXXwTIt3XFk2 NULweEtcTwObBIA3BdM4FP X9mOLqyB4r kMpweywrvC5oCpz+RmVtYW arNI93IT22nERea3X6nPU2 G2RdBNRxphkhprpnvYN0TL EpDATbgW92 iRUhIDvrWh7rr7G6t528LA NoICNfnX58He0oxYryBMUh xCJVnA0qfugzo7ygwukzTe AwMDAwMDt0 JDc5NPHvjPewDiZgPTL7Ge W8QFP4uHXrtL9mlTbldgxm aB6vJzh+C6S7oXF5fDLuqE wvdGQ+PC90 gy15Q1NxRycpXin8DXVxKO I9pMH6sF2fWLWoUFfel8Z8 jBF1P2MpmoDvwp9wn1hjIJ DhRMkgJ30m dGZun9I5CPSjqIO3PVNklK oiWqKowO71Tiz+PGNvbGdy y2EePygyh6pwd5txaHc0Hs MwJSIgdmFs yGzqAAB7v6WkCk83P00xHK dpZHRoPSIzMCUiIHZhbGln uj1njF9nCw7+GVYplTG0hZ O2aW1jOdMs TkS6NHceK986JmLdwHMkIa knk9gpx9uspBz3SuJsQGKj khKxaSqoJHV5w8WeIe81K4 NfnGnpk8Iz Itb2na26aTUyw9A4hDB5N8 TgUCXfrabhvLInhKnfBW4i IDCtzfmuFGVynK7lZRYsY4 d9HwMnAjK8 MHhxB0QysqE1XMYpdTYeYQ FmePSWbT5nsygmw7sqonrl BwQzFGVuADa1ZWu3NFNhjQ duOiBsZWZ0 EsZ5ZDY8xCJwrY6yaEjcpe jtbW0jXwo+YFe9f9qbyZHh FK8uwKT0LV58MO58cCPqh7 W1qFG0A8Td WZHgbufsthvcaWQ0QMFcZI FbvS22Be9nuHspAk4yJUKu RAQ3CEDbaGNvT2OyyR8kBx AjMDAwMDAw Z6EswRIlSWufM896QDzeOp W3GFIewfQxI6UlSVJymAbr FoV8o7Q8Wc7PDV76GH05FP 35tYQjw2K9 bJE5Q8TiVHOncnixvkrdjZ C5AEAsEADvdF45Vf0szAlx Ze4bOBDjZUM6VHGdoZYrS0 ZkjX1bAlIm LJPlVBFmL8MofTEeSXasE8 11RStaGkN9TKKwgyDlN6Pw KLWwbBeaHbB2d4Z0Ud9IBq 93UW06CG30 oZZnu5J1wNK4M6WwBTTxmf gbjqghuXO0HTTiGQXziW66 Uo0hcAeeRa8fTNXbPLK2EE EdsOQkR6Rm tV1uOnCjRZCoIRDjM1MrpF OaEBujW007NCvlWdL4TBJh dpTsV0YwWDQzgNslKgZ5o9 M6Pk0LVLkr wgf0N5YmXidbnJD+PC90YW FhFH40iHVueELmw1sekAm2 UlRnAFOwGPG1hNilNDart1 DjYCAoU52s bGFw (more content not included)... Normal [facility] Immunization Recordson 08-10 Immunization Records [id number]#1. 00CD:127 Normal [facility] C Urineon 08-08-2022 Bacteria identified Cx Nom (U) Microbiology PROCEDURE: Urine Culture [R1] SOURCE: U CleanCatch BODY SITE: COLLECTED DATE/TIME: 08/06/2022 15:36 EST RECEIVED DATE/TIME: 08/06/2022 17:02 EST START DATE/TIME: 08/06/2022 17:02 EST FREE TEXT SOURCE: Gwyn Garcia DO, DO, Gwyn Spencer FINAL REPORTS Final Report [] Verified Date/Time: 08/08/2022 10:04 EST 4,000 cfu/ml Mixed skin contaminants Performing Locations R1: This test was performed at: [facility], [address] [place] [address], [address] , , Normal [facility] Comment on above: Performed By: #### 2 [id number], [id number], [id number], [id number], [id number], [id number] #### [facility] [address] [place] [address] 96943 ABO/Rh Retypeon 08-06-2022 ABO/Rh Retype Interp Positive Invalid Interpretation Code [facility] Comment on above: Performed By: #### 2 [id number], [id number], [id number], [id number], [id number], [id number] #### [facility] [address] [place] [address] 32082 BUNon 08-06-2022 Urea nitrogen [Mass/Vol] 15 mg/dL Normal 5-21 [facility] Comment on above: Performed By: #### 2 853608, [id number], [id number], [id number], [id number], [id number] #### [facility] [address] [place] [address] 47069 CBC w/Indiceson 08-06-2022 Erythrocyte distribution width (RBC) [Ratio] 14.3 % High 10.9-14.2 [facility] Comment on above: Performed By: #### 2 [id number], [id number], [id number], 8609201, 2514513, [id number] #### [facility] [address] [place] [address] 14436 Hematocrit (Bld) [Volume fraction] 46.3 % High 34.0-46.0 [facility] Comment on above: Performed By: #### 2 514141, [id number], [id number], 7059129, 3802775, 3850466 #### [facility] [address] [place] [address] [id number] Hemoglobin (Bld) [Mass/Vol] 15.8 g/dL Normal 12.0-16.0 [facility] Comment on above: Performed By: #### 2 409338, 8203522, [id number], 8173653, 4457169, 8766445 #### [facility] [address] [place] [address] 63746 MCH (RBC) [Entitic mass] 29.5 pg Normal 27.0-34.0 [facility] Comment on above: Performed By: #### 2 936232, 9847605, [id number], 5439556, 8056566, 1528509 #### [facility] [address] [place] [address] 31159 MCHC (RBC) [Mass/Vol] 34.2 g/dL Normal 31.4-36.0 [facility] Comment on above: Performed By: #### 2 198108, 6847236, 07071062, 9584665, 7989398, 2742279 #### [facility] [address] [place] [address] 00151 MCV (RBC) [Entitic vol] 86.3 fL Normal 80.0-100.0 [facility] Comment on above: Performed By: #### 2 520748, 6013205, [id number], 1378316, 5605461, 8225257 #### [facility] [address] [place] [address] 40948 Platelet mean volume (Bld) [Entitic vol] 7.8 fL Normal 6.4-10.8 [facility] Comment on above: Performed By: #### 2 [id number], 4912429, 33684776, 5971195, 6684234, 6540301 #### [facility] [address] [place] [address] Platelets (Bld) [#/Vol] 239.0 E9/L Normal 150.0-500.0 [facility] Comment on above: Performed By: #### 2 975531, 4731357, 93807214, 7338793, 5819473, 1659307 #### [facility] [address] [place] [address] RBC (Bld) [#/Vol] 5.4 E12/L Normal 4.3-5.9 [facility] Comment on above: Performed By: #### 2 121664, 3381515, 57921011, 3708784, 9261661, 5487095 #### [facility] [address] [place] [address] WBC corrected for nucl RBC Auto (Bld) [#/Vol] 6.7 E9/L Normal 4.0-11.0 [facility] Comment on above: Performed By: #### 2 639928, 3692356, 38492184, 2687408, 5515520, 7687354 #### [facility] [address] [place] [address] Consent for Treatmenton Consent for Treatment [id number] 0CD:127 Normal [facility] Creatinineon 08-06-2022 Creatinine [Mass/Vol] 0.7 mg/dL Normal 0.5-1.3 [facility] Comment on above: Performed By: #### 2 161932, 3758579, 24034251, 7189379, 7646612, 1066393 #### [facility] [address] [place] [address] Glucoseon 08-06-2022 Glucose [Mass/Vol] 101 mg/dL Normal 55-199 [facility] Comment on above: Performed By: #### 2 891781, 5311343, 00631053, 6352930, 0792964, 0871848 #### [facility] [address] [place] [address] Lyteson 08-06-2022 Anion gap [Moles/Vol] 13 mmol/L Normal 6-16 [facility] Comment on above: Performed By: #### 2 453532, 7548109, 19326011, 3441104, 3726887, 1029871 #### [facility] [address] [place] [address] Chloride [Moles/Vol] 101 mmol/L Normal 101-111 [facility] Comment on above: Performed By: #### 2 345187, 6784899, 54682426, 8350259, 1494032, 0125747 #### [facility] [address] [place] [address] CO2 [Moles/Vol] 27 mmol/L Normal 21-31 [facility] Comment on above: Performed By: #### 2 275249, 4490087, 85059327, 0081537, 1534137, 1825389 #### [facility] [address] [place] [address] Potassium [Moles/Vol] 4.2 mmol/L Normal 3.5-5.3 [facility] Comment on above: Performed By: #### 2 074648, 0582040, 23863631, 1123364, 7090513, 5020199 #### [facility] [address] [place] [address] Sodium [Moles/Vol] 137 mmol/L Normal 135-145 [facility] Comment on above: Performed By: #### 2 787525, 4491222, 80117924, 8644883, 4999099, 9451459 #### [facility] [address] [place] [address] UA With Cult Reflexon 2021 Bacteria LM Ql (Urine sed) TRACE Normal Trace [facility] Comment on above: Performed By: #### 2 086868, 3783939, 53404124, 0824407, 1079269, 8582534 #### [facility] [address] [place] [address] Bilirubin Ql (U) Negative Normal Negative [facility] Comment on above: Performed By: #### 2 036715, 0942294, 73094924, 6645336, 4894433, 4799216 #### [facility] [address] [place] [address] Clarity (U) CLEAR Normal Clear [facility] Comment on above: Performed By: #### 2 742666, 9951991, 26802059, 2203406, 9986540, 0283297 #### [facility] [address] [place] [address] Color (U) YELLOW Normal Yellow [facility] Comment on above: Performed By: #### 2 176228, 9940939, 89479607, 9154871, 8645227, 2270242 #### [facility] [address] [place] [address] Epithelial cells.squamous LM.HPF (Urine sed) [#/Area] 3-4 Normal 0-2 [facility] Comment on above: Performed By: #### 2 703616, 4238873, 12347104, 1574475, 7601427, 1441546 #### [facility] [address] [place] [address] Glucose Test strip (U) [Mass/Vol] Negative Normal Negative [facility] Comment on above: Performed By: #### 2 809792, 9439985, 53202160, 0955296, 5441230, 9730032 #### [facility] [address] [place] [address] Hemoglobin Ql (U) Negative Normal Negative [facility] Comment on above: Performed By: #### 2 211901, 4176530, 43658390, 4479941, 6233043, 5401138 #### [facility] [address] [place] [address] Ketones (U) [Mass/Vol] Negative Normal Negative [facility] Comment on above: Performed By: #### 2 587357, 8492922, 56372315, 0175291, 5077635, 8060044 #### [facility] [address] [place] [address] [place].plasma/Lith ium.RBC (Bld) [Mass ratio] 0-3 Normal 0-3 [facility] Comment on above: Performed By: #### 2 240002, 4494833, 67487183, 1470118, 6441332, 7317432 #### [facility] [address] [place] [address] Mucus Ql (Urine sed) TRACE Normal [facility] Comment on above: Performed By: #### 2 399574, 6885679, 13010869, 6307460, 1776055, 1860768 #### [facility] [address] [place] [address] Nitrite Ql (U) Negative Normal Negative [facility] Comment on above: Performed By: #### 2 337422, 4146136, 72356451, 0535620, 6545847, 3976662 #### [facility] [address] [place] [address] pH (U) 7.0 [pH] Invalid Interpretation Code 5.0-9.0 [facility] Comment on above: Performed By: #### 2 352568, 0086186, 73704670, 5652566, 3798847, 4167885 #### [facility] [address] [place] [address] Protein (U) [Mass/Vol] Negative Normal Negative [facility] Comment on above: Performed By: #### 2 973640, 3299036, 26875435, 0654009, 4705117, 1266120 #### [facility] [address] [place] [address] Specific gravity (U) [Rel density] 1.015 Invalid Interpretation Code 1.005-1.030 [facility] Comment on above: Performed By: #### 2 893623, 9618566, 82674857, 6762404, 9951991, 8897619 #### [facility] [address] [place] [address] Type of Urine collection method Clean Catch Normal [facility] Comment on above: Performed By: #### 2 008094, 0840451, 06521197, 0239864, 4634563, 9017886 #### [facility] [address] [place] [address] Urobilinogen Qn (U) 0.2 {Tyson'U}/dL Normal 0.0-1.0 [facility] Comment on above: Performed By: #### 2 238681, 3507077, 91772819, 4002962, 1969479, 5241835 #### [facility] [address] [place] [address] WBC Auto Ql (U) TRACE Abnormal Negative [facility] Comment on above: Performed By: #### 2 674517, 2366215, 60113401, 3192237, 3473161, 6330876 #### [facility] [address] [place] [address] WBC LM.HPF (Urine sed) [#/Area] 6-15 Abnormal 0-5 [facility] Comment on above: Performed By: #### 2 618610, 6128026, 44974166, 7152552, 5684056, 9813665 #### [facility] [address] [place] [address] XR Chest 2 Viewson 2 XR Chest 2 Views Exam Date/Time: 08/06/2022 16:15 EST Reason for Exam: P.A.T. Report IMPRESSION: NO RADIOGRAPHIC EVIDENCE OF ACTIVE DISEASE IN THE CHEST. CLINICAL INFORMATION: P.A.T. COMPARISON: None available. FINDINGS: 2 views. Disc space narrowing diffusely thoracic spine with small anterior osteophytes lower thoracic spine.. Cardiopericardial silhouette is normal. Pulmonary vasculature is normal. Lungs are clear. FINAL REPORT Dictated: 08/06/2022 5:16 pm Heath Quiros MD Signed (Electronic Signature): 08/06/2022 5:16 pm Signed by: Heath Quiros MD Transcribed by: [place]USTIN Technologist: Normal [facility] eGFRon 08-06-2022 GFR/1.73 sq M.predicted among blacks MDRD (S/P/Bld) [Vol rate/Area] mL/min/{1.73_m2} Normal >=59 [facility] Comment on above: Order Comment: Order added by Discern Expert. Result Comment: eGFR is race adjusted. AA=. Performed By: #### 2 942383, 9054856, 65479965, 2035436, 8184713, 5232613 #### [facility] [address] [place] [address] GFR/1.73 sq M.predicted among non-blacks MDRD (S/P/Bld) [Vol rate/Area] mL/min/{1.73_m2} Normal >=59 [facility] Comment on above: Order Comment: Order added by Discern Expert. Result Comment: Music Video Director taylor kidney disease could be indicated at eGFR's of less than 60 mL/min/1.73m2. Kidney failure is indicated at less than 15 mL/min/1.73m2. Performed By: #### 2 764420, 2085640, 79280327, 0847498, 7359755, 6840059 #### [facility] [address] [place] [address] Physician Orderon 07-12-2022 Physician Order [id number]. 00CD:127 Normal [facility] CBC AUTO DIFFon 05-20-2022 BASO # 0.1 103/ul Normal 0.0-0.1 [facility] Comment on above: Performed By: #### C BC #### [facility] [address] [place] [address] Dr. Carmen Brown Basophils/100 WBC (Bld) 1.2 % Normal 0.2-2.0 [facility] Comment on above: Performed By: #### C BC #### [facility] [address] [place] [address] Dr. Carmen Brown EO # 0.2 103/ul Normal 0.0-0.7 [facility] Comment on above: Performed By: #### C BC #### [facility] [address] [place] [address] Dr. Carmen Brown Eosinophils/100 WBC (Bld) 3.9 % Normal 0.9-7.0 [facility] Comment on above: Performed By: #### C BC #### [facility] [address] [place] [address] Dr. Carmen Brown Erythrocyte distribution width (RBC) [Ratio] 13.2 % Normal 11.0-15.0 [facility] Comment on above: Performed By: #### C BC #### [facility] [address] [place] [address] Dr. Carmen Brown Hematocrit (Bld) [Volume fraction] 49.3 % Critically high 36.0-48.0 [facility] Comment on above: Performed By: #### C BC #### [facility] [address] [place] [address] Dr. Carmen Brown Hemoglobin (Bld) [Mass/Vol] 16.0 g/dL Normal 12.0-16.0 [facility] Comment on above: Performed By: #### C BC #### [facility] [address] [place] [address] Dr. Carmen Brown IG # 0.02 10e3/ul Normal 0.00-0.03 [facility] Comment on above: Performed By: #### C BC #### [facility] [address] [place] [address] Dr. Carmne Brown IG % 0.4 % Normal 0.0-0.5 [facility] Comment on above: Performed By: #### C BC #### [facility] [address] [place] [address] Dr. Carmen Brown LYMPH # 1.3 103/ul Normal 1.2-3.8 [facility] Comment on above: Performed By: #### C BC #### [facility] [address] [place] [address] Dr. Carmen Brown Lymphocytes/100 WBC (Bld) 24.6 % Normal 20.5-60.0 [facility] Comment on above: Performed By: #### C BC #### [facility] [address] [place] [address] Dr. Carmen Brwon MANUAL DIFF REQ NO Normal [facility] Comment on above: Performed By: #### C BC #### [facility] [address] [place] [address] Dr. Carmen Brown MCH (RBC) [Entitic mass] 29.1 pg Normal 26.7-34.0 [facility] Comment on above: Performed By: #### C BC #### [facility] [address] [place] [address] Dr. Carmen Brown MCHC (RBC) [Mass/Vol] 32.5 g/dL Normal 29.9-35.2 [facility] Comment on above: Performed By: #### C BC #### [facility] [address] [place] [address] Dr. Carmen Brown MCV (RBC) [Entitic vol] 89.8 fL Normal 81.0-99.0 [facility] Comment on above: Performed By: #### C BC #### [facility] [address] [place] [address] Dr. Carmen Brown MONO # 0.4 103/ul Normal 0.3-0.8 [facility] Comment on above: Performed By: #### C BC #### [facility] [address] [place] [address] Dr. Carmen Brown Monocytes/100 WBC (Bld) 7.7 % Normal 1.7-12.0 [facility] Comment on above: Performed By: #### C BC #### [facility] [address] [place] [address] Dr. Carmen Brown NEUT # 3.2 103/ul Normal 1.4-6.5 [facility] Comment on above: Performed By: #### C BC #### [facility] [address] [place] [address] Dr. Carmen Brown Neutrophils/100 WBC (Bld) 62.2 % Normal 43.0-75.0 [facility] Comment on above: Performed By: #### C BC #### [facility] [address] [place] [address] Dr. Carmen Brown Platelet mean volume (Bld) [Entitic vol] 9.5 fL Normal 9.5-13.5 [facility] Comment on above: Performed By: #### C BC #### [facility] [address] [address] [address] Carmen Brown PLT 256 103/ul Normal 150-450 [facility] Comment on above: Performed By: #### C BC #### [facility] [address] [place] [address] Dr. Carmen Brown RBC 5.49 106/ul Critically high 4.20-5.40 [facility] Comment on above: Performed By: #### C BC #### [facility] [address] [place] [address] Dr. Carmen Brown WBC 5.1 103/ul Normal 4.0-11.0 [facility] Comment on above: Performed By: #### C BC #### [facility] [address] [place] [address] Dr. Carmen Brown FREE T4on 05-20-2022 Free T4 [Mass/Vol] 1.43 ng/dL Normal 0.76-1.46 [facility] Comment on above: Performed By: #### F T4 #### [facility] [address] [place] [address] Dr. Carmen Brown GLYCOHEMOGLOBIN A1Con 2021 ADA RECOMMENDATION SEE BELOW Normal [facility] Comment on above: Result Comment: ADA RECOMMENDED LIMIT 4.0 - 6.0 ADA THERAPEUTIC TARGET < 7.0 ACTION SUGGESTED > 7.0 Performed By: #### A 1C #### [facility] [address] [place] [address] Dr. Carmen Brown Glucose [Mass/Vol] 128 mg/dL Normal [facility] Comment on above: Performed By: #### A 1C #### [facility] [address] [place] [address] Dr. Carmen Brown HbA1c (Bld) [Mass fraction] 6.1 % Normal 4.5-6.2 [facility] Comment on above: Performed By: #### A 1C #### [facility] [address] [place] [address] Dr. Carmen Brown PROF CHEM 8 (BAS METB)on Anion gap [Moles/Vol] 11.9 mmol/L Normal [facility] Comment on above: Performed By: #### T SH, BMP #### [facility] [address] [place] [address] Dr. Carmen Brown Calcium [Mass/Vol] 9.5 mg/dL Normal 8.5-10.1 [facility] Comment on above: Performed By: #### T SH, BMP #### [facility] [address] [place] [address] Dr. Carmen Brown Chloride [Moles/Vol] 105 mmol/L Normal 98-107 [facility] Comment on above: Performed By: #### T SH, BMP #### [facility] [address] [place] [address] Dr. Carmen Brown CO2 [Moles/Vol] 28.5 mmol/L Normal 21.0-32.0 [facility] Comment on above: Performed By: #### T SH, BMP #### [facility] [address] [place] [address] Dr. Carmen Brown Creatinine [Mass/Vol] 0.78 mg/dL Normal 0.55-1.02 [facility] Comment on above: Performed By: #### T SH, BMP #### [facility] [address] [place] [address] Dr. Carmen Brown EGFR-AF URUGUAYAN >60 Normal >=60 [facility] Comment on above: Performed By: #### T SH, BMP #### [facility] [address] [place] [address] Dr. Carmen Brown EGFR-NON AF URUGUAYAN >60 Normal >=60 [facility] Comment on above: Performed By: #### T SH, BMP #### [facility] [address] [place], [place] [address] Dr. Carmen Brown Glucose [Mass/Vol] 127 mg/dL Critically high 74-106 [facility] Comment on above: Performed By: #### T SH, BMP #### [facility] [address] [place] [address] Dr. Carmen Brown Potassium [Moles/Vol] 4.4 mmol/L Normal 3.5-5.1 [facility] Comment on above: Performed By: #### T SH, BMP #### [facility] [address] [place] [address] Dr. Carmen Brown Sodium [Moles/Vol] 141 mmol/L Normal 136-145 [facility] Comment on above: Performed By: #### T JUAN, BMP #### [facility] [address] [place] [address] Dr. Carmen Brown Urea nitrogen [Mass/Vol] 10.0 mg/dL Normal 7.0-18.0 [facility] Comment on above: Performed By: #### T JUAN, BMP #### [facility] [address] [place] [address] Dr. Carmen Brown Urea nitrogen/Creatinine [Mass ratio] 12.8 mg/mg Normal [facility] Comment on above: Performed By: #### T JUAN, BMP #### [facility] [address] [place] [address] Dr. Carmen Brown TSHon 05-20-2022 TSH 1.276 uIU/mL Normal 0.358-3.740 [facility] Comment on above: Performed By: #### T JUAN, BMP #### [facility] [address] [place] [address] Dr. Carmen Brown Vital Signs Date Time Vital Sign Value Performing Clinician Facility 2024 14:30-040 Body height 160.02 cm [facility] 2024 14:30-399 Body mass index (BMI) [Ratio] 40.7 kg/m2 [facility] 2024 14:30-399 Body weight 104.32 kg [facility] 2024 14:30-0400 Diastolic blood pressure 77 mm[Hg] [facility] 2024 14:30-0400 Heart rate 75 /min [facility] 2024 14:30-0400 Systolic blood pressure 122 mm[Hg] [facility] 05-20-2023 14:30-0400 Body height 160.02 cm Camille Williamson Other [employer] Other 05-20-2023 14:30-0400 Body mass index (BMI) [Ratio] 40.38 kg/m2 Camille Williamson Other [employer] Other 05-20-2023 14:30-0400 Body weight 103.42 kg Camille Williamson Other [employer] Other 05-20-2023 14:30-0400 Diastolic blood pressure 81 mm[Hg] Camille Williamson Other [employer] Other 05-20-2023 14:30-0400 Systolic blood pressure 140 mm[Hg] Camille Williamson Other [employer] Other 04-28-2023 13:30-0400 Body height 160.02 cm Camille Williamson Other [employer] Other 04-28-2023 13:30-0400 Body mass index (BMI) [Ratio] 39.14 kg/m2 Camille Williamson Other [employer] Other 04-28-2023 13:30-0400 Body weight 100.25 kg Camille Williamson Other [employer] Other 04-28-2023 13:30-0400 Diastolic blood pressure 82 mm[Hg] Camille Williamson Other [employer] Other 04-28-2023 13:30-0400 Systolic blood pressure 130 mm[Hg] Camille Williamson Other [employer] Other 02-21-2023 14:30-0400 Body height 160.02 cm Camille Williamson Other [employer] Other 02-21-2023 14:30-0400 Body mass index (BMI) [Ratio] 41.98 kg/m2 Camille Williamson Other [employer] Other 02-21-2023 14:30-0400 Body weight 107.5 kg Camille Williamson Other [employer] Other 02-21-2023 14:30-0400 Diastolic blood pressure 82 mm[Hg] Camille Williamson Other [employer] Other 02-21-2023 14:30-0400 Systolic blood pressure 136 mm[Hg] Camille Williamson Other [employer] Other 09-16-2022 15:15-0500 Body height 160.02 cm Camille Williamson Other [employer] Other 09-16-2022 15:15-0500 Body mass index (BMI) [Ratio] 41.62 kg/m2 Camille Williamson Other [employer] Other 09-16-2022 15:15-0500 Body weight 106.6 kg Camille Williamson Other [employer] Other 09-16-2022 15:15-0500 Diastolic blood pressure 86 mm[Hg] Camille Williamson Other [employer] Other 09-16-2022 15:15-0500 SaO2% (BldA) [Mass fraction] 97 % Camille Williamson Other [employer] Other 09-16-2022 15:15-0500 Systolic blood pressure 132 mm[Hg] Camille Williamson Other [facility] [employer] Other 08-31-2022 15:54-0500 SaO2% (BldA) [Mass fraction] 98 % [facility] 08-31-2022 12:00-0500 Heart rate 66 /min [facility] 08-31-2022 12:00-0500 SaO2% (BldA) [Mass fraction] 98 % [facility] 08-31-2022 12:00-0500 Body temperature 97.16 [degF] [facility] 08-31-2022 12:00-0500 Diastolic blood pressure 78 mm[Hg] [facility] 08-31-2022 12:00-0500 Mean blood pressure 96 mm[Hg] [facility] 08-31-2022 12:00-0500 Systolic blood pressure 133 mm[Hg] [facility] 08-31-2022 08:28-0500 Blood Pressure Location [facility] 08-31-2022 08:28-0500 Body temperature 98.42 [degF] [facility] 08-31-2022 08:28-0500 Diastolic blood pressure 55 mm[Hg] [facility] 08-31-2022 08:28-0500 Heart rate 61 /min [facility] 08-31-2022 08:28-0500 Hourly Rounding [facility] 08-31-2022 08:28-0500 Mean blood pressure 64 mm[Hg] [facility] 08-31-2022 08:28-0500 Respiratory rate 18 /min [facility] 08-31-2022 08:28-0500 SaO2% (BldA) [Mass fraction] 98 % [facility] 08-31-2022 08:28-0500 Systolic blood pressure 81 mm[Hg] [facility] 08-31-2022 06:14-0500 Hourly Rounding [facility] 08-31-2022 06:14-0500 Promise to Return [facility] 08-31-2022 05:18-0500 Hourly Rounding [facility] 08-31-2022 05:18-0500 Promise to Return [facility] 08-31-2022 04:01-0500 Blood Pressure Location [facility] 08-31-2022 04:01-0500 Body temperature 98.24 [degF] [facility] 08-31-2022 04:01-0500 Diastolic blood pressure 81 mm[Hg] [facility] 08-31-2022 04:01-0500 Heart rate 71 /min [facility] 08-31-2022 04:01-0500 Mean blood pressure 96 mm[Hg] [facility] 08-31-2022 04:01-0500 Mean blood pressure 103 mm[Hg] [facility] 08-31-2022 04:01-0500 Respiratory rate 17 /min [facility] 08-31-2022 04:01-0500 Systolic blood pressure 147 mm[Hg] [facility] 08-31-2022 04:00-0500 Promise to Return [facility] 08-31-2022 00:24-0500 Blood Pressure Location [facility] 08-31-2022 00:24-0500 Body temperature 98.06 [degF] [facility] 08-31-2022 00:24-0500 Mean blood pressure 96 mm[Hg] [facility] 08-31-2022 00:24-0500 Mean blood pressure 105 mm[Hg] [facility] 08-31-2022 00:24-0500 Respiratory rate 15 /min [facility] 08-30-2022 20:04-0500 Body temperature 97.7 [degF] [facility] 08-30-2022 14:25-0500 Body temperature 96.98 [degF] [facility] 08-30-2022 14:25-0500 Respiratory rate 16 /min [facility] 08-30-2022 14:15-0500 Respiratory rate 19 /min [facility] 08-30-2022 14:00-0500 Respiratory rate 18 /min [facility] 08-30-2022 13:46-0500 Body temperature 96.98 [degF] [facility] 08-30-2022 10:01-0500 Heart rate 60 /min [facility] 08-30-2022 09:59-0500 Body temperature 97.88 [degF] [facility] Encounters Encounter Date Encounter Type Care Provider Facility Start: 2024 End: 2024 ambulatory [facility] Work Phone: Start: 2024 End: 2024 Patient encounter procedure [facility] Work Phone: Start: 01-10-2024 Non-patient / Non-visit [facility] Work Phone: Start: 01-03-2024 End: 01-03-2024 ambulatory PRINCESS DOUGHERTY Not Available Start: 12-19-2023 Non-patient / Non-visit [facility] Work Phone: Start: 12-07-2023 End: 12-08-2023 ambulatory GWYN GARCIA Not Available Start: 09-24-2023 End: 09-24-2023 ambulatory Camille Williamson Other [employer] Other Start: 09-24-2023 Telephone encounter Camille Williamson [facility] Start: 06-16-2023 End: 06-16-2023 ambulatory Camille Williamson Other [employer] Other Start: 06-16-2023 Telephone encounter Camille Williamson [facility] Start: 05-20-2023 End: 05-20-2023 ambulatory Camille Williamson Other [employer] Other Start: 05-20-2023 Office outpatient vi sit 15 minutes Camille Williamson [facility] Start: 04-29-2023 End: 04-29-2023 ambulatory Camille Clay Other [employer] Other Start: 04-29-2023 Telephone encounter Camille Clay [facility] Start: 04-28-2023 End: 04-28-2023 ambulatory Camille Clay Other [employer] Other Start: 04-28-2023 Office outpatient vi sit 15 minutes Camille Clay [facility] Start: 04-25-2023 End: 04-25-2023 ambulatory Camille Clay Other [employer] Other Start: 04-25-2023 Telephone encounter Camille Clay [facility] Start: 02-21-2023 End: 02-21-2023 ambulatory Camille Clay Other [employer] Other Start: 02-21-2023 Office outpatient vi sit 15 minutes Camille Clay [facility] Start: 12-13-2022 End: 12-14-2022 Evaluation and management of inpatient Gwyn Garcia Facility:[facility] Start: 10-14-2022 End: 10-14-2022 ambulatory Camille Clay Other [employer] Other Start: 10-14-2022 Telephone encounter Camille Clay [facility] Start: 09-16-2022 End: 09-16-2022 ambulatory Camille Clay Other [employer] Other Start: 09-16-2022 Office outpatient vi sit 15 minutes Camille Clay [facility] Start: 09-01-2022 End: 09-01-2022 ambulatory Camille Williamson Other [employer] Other Start: 09-01-2022 Telephone encounter Camille Clay [facility] Start: 08-31-2022 End: 08-31-2022 ambulatory Camille Williamson Other [employer] Other Start: 08-31-2022 Telephone encounter Camille Williamson [facility] Start: 08-30-2022 End: 08-31-2022 Evaluation and management of inpatient Gwyn Garcia Facility:[facility] Start: 08-30-2022 End: 08-31-2022 Evaluation and management of inpatient Gwyn Garcia [facility] Start: 08-06-2022 End: 08-07-2022 ambulatory Gwyn Garcia Facility:[facility] Start: 05-20-2022 End: 05-21-[address] CAMILLE WILLIAMSON Facility:[facility] Procedures Date Procedure Procedure Detail Performing Clinician Start: 08-30-2022 Total knee replacement Gwyn Garcia section Gwyn flowers Cholecystectomy Gwyn greco Lumpectomy of breast Gwyn Garcia Tympanotomy Gwyn Garcia Immunizations Immunization Date Immunization Notes Care Provider Fa [facility] 06-12-2020 influenza virus vaccine, split virus (incl. purified surface antigen) Camille Williamson Other [employer] Other 06-12-2020 influenza virus vaccine, unspecified formulation [facility] Payers Date Payer Category Payer Medicare [id number] 1960 Medicare [id number] 1960 Unknown [id number] 1955 Unknown [id number] 2.16.84 [id number] 1955 Unknown [id number] 2.16.8 [id number] 1955 Unknown [id number] 2.16.8 [id number] 1955 Unknown [id number] 2.16.8 [id number] 1955 Unknown [id number] 2.16.84 [id number] 1955 Unknown [id number] 2.16.84 [id number] 1955 Unknown [id number] 2.16.84 [id number] 1955 Unknown [id number] 2.16.84 [id number] Social History Date Type Detail Facility Tobacco smoking status [facility] Sex Assigned At Female [facility] Start: 2024 Tobacco smoking stat [facility] Never smoked tobacco (finding) [facility] Start: 1955 Sex Assigned At Female [facility] Medical Equipment Procedure Code Equipment Code Equipment Origin al Text Equipment Identifier Dates KNEE TOTAL ARTHROPLASTY Garcia Gwyn QUEVEDO Johanna 08/30/22 Non Biological Knee R {[id number]{ [id number] [facility] Start: 08-30-2022 Clinical Notes 08-25-2022 to 05-20-2023 Note Date & Type Note Facility 05-20-2023 Evaluation note Encounter Date Diagnosis Assessment Notes Apr, Hypercalcemia (ICD-10 - E83.52) Added PTH and faxed to [facility] lab - add onto lab drawn Apr, Hypothyroidism (acquired) (ICD-10 - E03.9) Apr, Essential hypertension (ICD-10 - I10) Apr, Other Other labs reviewed w pt - gave copies to pt and explained overall normal results. Continue present medications. [employer] Other 08-31-2023 Evaluation note* Encounter Date Diagnosis Assessment Notes Treatment Notes Treatment Clinical Notes Mar, Depression with anxiety (ICD-10 - F41.8) Restart med Patient is encouraged to stay active and remain involved. Try to keep themselves busy. Take medication as directed and we will continue to monitor. Mar, Essential hypertension (ICD-10 - I10) Blood pressure remains well controlled at this time. Denies cardiac symptoms. Shows no signs or symptoms or poor control. Patient to continue with above medication and we will continue to monitor. Advised to pay attention to body and symptoms. Any developing patterns. Stay well hydrated. Mar, Elevated fasting blood sugar (ICD-10 - R73.01) Discussed watching and decreasing intake of concentrated and high carb foods and including a walking or exercise routine at least 3-4 x/wk for overal health and to protect from increasing incidents of elevated fasting glucose. Patient agrees Mar, Hypothyroidism (acquired) (ICD-10 - E03.9) Asymptomatic at this time, Denies any unexplained weight change, hair loss or fatigue. Patient to continue with above medication and we will continue to monitor through routine blood work [employer] Other 06-26-2023 Evaluation note* Encounter Date Diagnosis Assessment Notes Treatment Notes Treatment Clinical Notes Jan, Bilateral hearing loss, unspecified hearing loss type (ICD-10 - H91.93) Jan, Middle ear effusion, bilateral (ICD-10 - H65.93) [employer] Other 04-18-2023 NoteCRM entered the room to discuss dc planning. PCP, DME and insurance discussed. Patient is alert andinvolved in plan of care. Contact information provided and whiteboard updated. Pt will dc with [facility], she has a FWW from home. No further needs. ANt dc today.[facility] above:Result Comment: Electronically Signed By: Cheri Doan\.br\Date and Time Signed: 12/14/22 09:50 [id number] NotePatient: CECI SPEARS Age: 67 years Sex: Female : 1955 Associated Diagnoses: None Author: Gwyn Garcia DO Results Review General results Discharge Information Discharge Summary Information: Admit Date/Time: 12/13/22 06:46 Discharge Date/Time: 12/14/22 06:58 Admitting Physician: Gwyn Garcia DO Referring Physician for Admission: Gwyn Garcia DO Consulting Physicians: Admitting Diagnoses: Discharge Diagnoses: Unilateral primary osteoarthritis, left knee Prescription and Home Meds: acetaminophen-oxycodone (Percocet 5 mg-325 mg oral tablet) See Instructions, Take one to two every 4 hours as needed for pain from knee surgery, 50 tab(s), 0 Refill(s) acetaminophen-oxycodone (Percocet 5 mg-325 mg oral tablet) See Instructions, take one to two every 4 hours as needed for knee replacement pain, 50 tab(s), 0 Refill(s) aspirin (aspirin 325 mg Tab) 325 mg, 1 tab(s), Oral, Daily, for 30 day(s), Start the day after kneesurgery, 30 tab(s), 0 Refill(s) docusate (Colace 100 mg Cap) 100 mg, 1 cap(s), Oral, BID, 20 cap(s), 0 Refill(s) docusate (Colace 100 mg Cap) 100 mg, 1 cap(s), Oral, BID, 20 cap(s), 0 Refill(s) levothyroxine (levothyroxine 137 mcg (0.137 mg) Tab) 137 mcg, 1 tab(s), Oral, Daily, 0 Refill(s) metoprolol (metoprolol 25 mg ER Tab) 25 mg, 1 tab(s), Oral, Daily Stable course. D/C home with [facility]. [place] out POD#21. F/U in 4 weeks. [facility]Comment on above:Result Comment: Electronically Signed By: Gwyn Garcia DO\.param\Date and Time Signed: 12/14/22 06:59 EDT 12-13-2022 NotePT Evaluation completed with an AMPAC score 14/24. Pt currently requires Mod A x 2 for bed mobilityand Mod A x 2 to stand. Pt was able to take a couple steps to complete a transfer. Will follow daily to progress with recommendations to be given on POD # 1[facility]04-10-2023 Note [id number]:127[facility] 10-14-2022 Evaluation note* Encounter Date Diagnosis Assessment Notes Treatment Notes Treatment Clinical Notes Sep, Depression with anxiety (ICD-10 - F41.8) [employer] Other 01-19-2023 Evaluation note* Encounter Date Diagnosis Assessment Notes Treatment Notes Treatment Clinical Notes Aug, Depression with anxiety (ICD-10 - F41.8) Aug, Essential hypertension (ICD-10 - I10) continue metoprolol at this time Aug, BMI 40.0-44.9, adult (ICD-10 - Z68.41) Encouraged patient to continue to watch their diet and increase exercise regimen. [employer] Other 01-03-2023 Evaluation + Plan noteExtracted from: Title:Discharge Summary * Author:Chon Garcai DO Date:08/31/22 Discharge Information Discharge Summary Information: Admit Date/Time: 08/30/22 09:34Discharge Date/Time: 08/31/22 07:22 Admitting Physician: Gwyn Garcia DO Referring Physician for Admission: Gwyn Garcia DO Consulting Physicians: Admitting Diagnoses: Discharge Diagnoses: Unilateral primary osteoarthritis, right knee Prescription and Home Meds: acetaminophen-hydrocodone (acetaminophen-hydrocodone 325 mg-7.5 mg oral tablet) 1 tab(s) Oral q6hr, Start: 08/31/2022, 0 Refill(s) acetaminophen-oxycodone (Percocet 5 mg-325 mg oral tablet) See Instructions, take one to two every 4 hours as needed for knee replacement pain, 50 tab(s), 0 Refill(s) aspirin (aspirin 325 mg Tab) 325 mg, 1 tab(s), Oral, Daily, for 30 day(s), Start the day after knee replacement surgery, 30 tab(s), 0 Refill(s) cephalexin (Keflex 500 mg Cap) 500 mg, 1 cap(s), Oral, QID, for 5 day(s), Start the day after knee replacement surgery, 20 cap(s), 0 Refill(s) docusate (Colace 100 mg Cap) 100 mg, 1 cap(s), Oral, BID, 20 cap(s), 0 Refill(s) levothyroxine (levothyroxine 137 mcg (0.137 mg) Tab) 137 mcg, 1 tab(s), Oral, Daily, 0 Refill(s) metoprolol (metoprolol 25 mg ER Tab) 25 mg 1 tab(s) Oral Daily, Start: 08/31/2022, 0 Refill(s) Stable course. reg diet. Mepilex chnage 10 days. [place] out POD#14. F/U in 4 weeks. Extracted from: Title:Right POD #1 TKA Author:Gwyn Garcia DO Date:08/31/22 Impression and Plan Diagnosis POD #1 Right TKA comp by obesity BMI>40. Orders Continue mechanical and pharmacologic DVT prophylaxis. Analgesics. PT and OT services. . D/C home today. [facility] out tomorrow. F/U in 4 weeks.. Extracted from: Title:Op Note skeleton Author:Gwyn Garcia DO Date:08/30/22 Impression and Plan Diagnosis Pre-op dx-rt knee oa/pain/obesity BMI>40 Post-op dx-same Procedure-rt tka comp by obesity BMI>40 Anesthesia-gen EBL-0 TT-see nn To Recovery Room in stable and satisfactory condition.. [facility]01-03-2023 NotePatient: CECI SPEARS Age: 67 years Sex: Female : 1955 Associated Diagnoses: None Author: Gwyn Garcia DO Results Review General results Discharge Information Discharge Summary Information: Admit Date/Time: 08/30/22 09:34 Discharge Date/Time: 08/31/22 07:22 Admitting Physician: Gwyn Garcia DO Referring Physician for Admission: Gwyn Garcia DO Consulting Physicians: Admitting Diagnoses: Discharge Diagnoses: Unilateral primary osteoarthritis, right knee Prescription and Home Meds: acetaminophen-hydrocodone (acetaminophen-hydrocodone 325 mg-7.5 mg oral tablet) 1 tab(s) Oral q6hr,Start: 08/31/2022, 0 Refill(s) acetaminophen-oxycodone (Percocet 5 mg-325 mg oral tablet) See Instructions, take one to two every 4 hours as needed for knee replacement pain, 50 tab(s), 0 Refill(s) aspirin (aspirin 325 mg Tab) 325 mg, 1 tab(s), Oral, Daily, for 30 day(s), Start the day after kneereplacement surgery, 30 tab(s), 0 Refill(s) cephalexin (Keflex 500 mg Cap) 500 mg, 1 cap(s), Oral, QID, for 5 day(s), Start the day after knee replacement surgery, 20 cap(s), 0 Refill(s) docusate (Colace 100 mg Cap) 100 mg, 1 cap(s), Oral, BID, 20 cap(s), 0 Refill(s) levothyroxine (levothyroxine 137 mcg (0.137 mg) Tab) 137 mcg, 1 tab(s), Oral, Daily, 0 Refill(s) metoprolol (metoprolol 25 mg ER Tab) 25 mg 1 tab(s) Oral Daily, Start: 08/31/2022, 0 Refill(s) Stable course. reg diet. Mepilex chnage 10 days. [place] out POD#14. F/U in 4 weeks.[facility] SystemComment on above:Result Comment: Electronically Signed By: Gwyn Garcia DO\.br\Date and Time Signed: 08/31/22 07:23 EST 08-30-2022 NotePT evaluation completed with an AM-PAC six clicks score of 10/24. Pt. requires Max A for all bed mobility and Max A for stand pivot transfer for bedside commode. Pt. unable to attempt ambulation at this time due to poor ability to complete transfers or independent standing. Recommend SNF for further rehab upon discharge.[facility] Hospital Discharge instructions Patient Education 08/26/2022 18:11:21 [facility] - Total Knee Arthroplasty (CUSTOM) [place], [place] [facility] DISCHARGE INSTRUCTIONS TOTAL KNEE ARTHROPLASTY INCISION CARE: Mepilex dressing can get wet with showers. Please remove 10 days after surgery per instruction sheet. If poly present, please coordinate removal 21 days after surgery with office staff. Please notify the office if any increase in redness, tenderness, drainage, fever, or wound separation is notedbeyond this point. Compression stockings may be helpful if any significant or uncomfortable swelling in the legs is noted postoperatively. Use and removal instructions should be given by physical therapy. If the swelling is below the knee, knee high compression stockings may suffice. If this does cause swelling into the thigh region, waist high compression stockings may be beneficial as well. These can be obtained from most pharmacies, or can be obtained from the hospital or through Home Health. The mild grade compression stockings are best used initially. MEDICATIONS: You may resume your home medications at the time of discharge. Aspirin 325 mg EC oral once a day for 4 weeks for blood clot prevention with meals. Please notify your doctor if you have a stomach sensitivity to Aspirin or history of previous stomach ulcers. Pain medication has been prescribed as well. You may continue to use the pain medication every fourhours as needed. Any narcotic pain medication can cause side effects including stomach upset, constipation, or light-headedness. You should not drive or operate machinery, or use alcohol while using the narcotic pain medication. You should not use other pain medications with this prescription pain medication unless further directed by your physician. PHYSICAL THERAPY: Continue the range of motion and strengthening exercises initiated in Physical Therapy in the hospital. [facility] Discharge Instructs for TKAPage 2 Physical Therapy Cont. Continue weight bearing, as ordered, to the operated knee for four to six weeks as directed in Physical Therapy, or until your strength is improved and Physical Therapy will then allow you to progress to full weight. This will be with the use of a walker or crutches initially. After four or six weeks you may then progress to the use of one crutch, or a cane. A quad-cane is preferred as this is more stable. Physical therapy as begun in the hospital will continue at home, possible with the farm assistant of Home Health Physical Therapy or in the hospital as an outpatient. When you have become independent withthe physical therapy program, this will then be discontinued as a supervised program and you will be instructed to continue the physical therapy exercises at home. Your exercises are ribera to successful rehabilitation. You should gain full extension first, hopefully before hospital discharge, then continue to do the exercises to maintain this, and gain 90 degreesflexion by one month post-op. Do the exercises daily, twice if preferred. DRIVING: Please do not drive for 4-6 weeks pending therapy progress. Driving too soon, you are considered animpaired hammer driver, and 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 It is therefore advised not to drive until after yourfirst office visit following surgery FOLLOW-UP OFFICE VISIT: Gwyn Garcia, DO [facility] [address] [place], [place] [address] Reviewed: 408 Follow Up Care 07/12/2022 08:53:18 With:Gwyn Garcia Address: [address] [place] [phone] Business (1) When:09/29/2022 09:30:00 Comments:Keep scheduled appointment With:CAMILLE WILLIAMSON Address: [address] [place] [phone]- Business (1) When:09/03/2022 09:00:00 [facility]12-28-2022 Note [id number]:127[facility] Evaluation noteNo InformationNoH[facility] Other Evaluation noteNo assessment information available [facility] Work Phone: Histjtc general Narrative - Reported* Type Description Date Medical History Left knee pain Medical History BMI 40.0-44.9, adult Medical History Anxiety and depression Medical History Hypothyroidism (acquired) Medical History Elevated fasting blood sugar Medical History Essential hypertension Medical History Diastolic blood pressure 90 mm H g or higher Medical History Acute hearing loss of both ears Medical History Bilateral otitis media with effu mundo Surgical History section 2013 Surgical History laparascopic cholecystectomy 20 13 Surgical History TRK 08/29/2022 Hospitalization History SEE SURGICAL [employer] Other [facility] general Narrative - Reported* Type Description Date Medical History Left knee pain Medical History BMI 40.0-44.9, adult Medical History Anxiety and depression Medical History Hypothyroidism (acquired) Medical History Elevated fasting blood sugar Medical History Essential hypertension Medical History Diastolic blood pressure 90 mm H g or higher Medical History Acute hearing loss of both ears Medical History Bilateral otitis media with effu mundo Surgical History section 2013 Surgical History laparascopic cholecystectomy 20 13 Surgical History TRK K Surgical History TLK 11/2022 Hospitalization History SEE SURGICAL [employer] Other Hospital course Narrative No data available for this section [facility] No data available for this section [facility] Summary Purpose Family History Relationship Condition Age at Onset Recorded Date/T john father Unknown Malignant neoplasm Unknown Advance Directives Advance Directive Response Recorded Date/ Time Advance Directives No January 09 12:21pm Reason for Referral Reason Previously seen ther e - had PE tubes - Has a hearing test scanned into chart. Diagnosis 1 Bilateral hearing lo ss, unspecified hearing loss type (H91.93) Referral Organization [facility] Referring Provider First Name Camille Referring Provider Last Name Clay Referring Provider Specialty Family [facility] Referred Organization [facility] Referred Provider Heath Monroy Referred Address ,[place], [place],[address] Referred Provider Specialty Otolaryngolo gy Referral Priority Routine Chief Complaint and Reason for Visit Chief Complaint Amb Documentation Ear complaints Additional Source Comments INFORMATION SOURCE (unrecogn ized section and content) DATE CREATED AUTHOR 05/30/2022 [facility] DATE CREATED AUTHOR AUTHOR'S ORGANIZ ATION 12/20/[address] [facility] DATE CREATED AUTHOR AUTHOR'S ORGANIZ ATION 01/05/2024 [facility] EPIC Patient Care team informatio n (unrecognized section and content) Team Status: Active Member Role Status Dates Camille Williamson MD Primary Care Provider Active Team Status: Active Member Role Status Dates Camille Williamson MD Primary Care Provider Active Start: December 19, 2023 SARAH Dasilva Attending Provider Active Start : December 19, 2023 Team Status: Active Member Role Status Dates Camille Williamson MD Primary Care Provider Active Start: January 10, 2024 Princess Dougherty DO Attending Provider Active Sta rt: January 10, 2024 Team Status: Inactive Member Role Status Dates Camille Williamson MD Primary Care Provide r, Attending Provider Active Start: 2024 End: 2024 REASON FOR VISIT (unrecogniz ed section and content) REFILLfollow up lab resultsd epression medication changesreferral for entmessageCheck Upmedication questionBP medication Goals (unrecognized section and content) Goals may be documented in a n alternate section FOR RECORDS PERTAINING TO PATIENTS WHO ARE OR HAVE BEEN ENROLLED IN A CHEMICAL DEPENDENCY/SUBSTANCEABUSE PROGRAM, SOME INFORMATION MAY BE OMITTED. This clinical summary was aggregated from multiple sources. Caution should be exercised in using it in the provision of clinical care. This summary normalizes information from multiple sources, and as a consequence, information in this document may materially change the coding, format and clinical context of patient data. In addition, data may be omitted in some cases. CLINICAL DECISIONS SHOULD BE BASED ON THE PRIMARY CLINICAL RECORDS. [facility]. provides no warranty or guarantee of the accuracy or completeness of information in this document.
== END 2024-02-20 15:05 | disposition home or self-care (01) ==
LOC: MRI 15:06
PROVIDERS: PCP Family Medicine; Visit Provider Psychiatry & Neurology Neurology
DX: R26.89 Other abnormalities of gait and mobility (principal); R29.2 Abnormal reflex; R53.1 Weakness; M50.30 Other cervical disc degeneration, unspecified cervical region
CPT/HCPCS: 72141

== ENCOUNTER 2024-05-19 09:16 | Outpatient (OUT) | payer MEDICARE, BC, OTHER, SELFPAY ==
--- OUTSIDE RECORDS SUMMARY | 2024-05-19 09:19 | XMS_ITS | CCD ---
Author Organization [facility] CliniSyut Care Team Providers Care Residential Sales Associate Name Role Phone CLAY, DR CAMILLE Powell Attending Unavailable WILLIAMSON, DR CAMILLE Powell Consulting Unavailable WILLIAMSON, DR CAMILLE Powell Primary Care Unavailable WILLIAMSON, DR CAMILLE Powell Admitting Unavailable CAMILLE WILLIAMSON Primary Care Physician [phone] Camille Williamson Gwyn Garcia Attending Unavailable Garcia, Gwyn T Admitting Unavailable Garcia, Gwyn T Referring Unavailable Garcia, Gwyn T Attending Unavailable Garcia, Gwyn T Admitting Unavailable Garcia, Gwyn T Referring Unavailable Garcia, Gwyn T Attending Unavailable Garcia, Gwyn T Admitting Unavailable Garcia, Gwyn T Referring Unavailable GARCIA, GWYN T Referring Unavailable GARCIA, GWYN T Attending Unavailable GARCIA, GWYN T Referring Unavailable LADONNA, PRINCESS Attending Unavailable LADONNA, PRINCESS Attending Unavailable LADONNA, PRINCESS Referring Unavailable LADONNA, PRINCESS Attending Unavailable MCCONNELL, JIN Attending Unavailable LADONNA, PRINCESS Referring Unavailable DEDE, FRANCIS Attending Unavailable LADONNA, PRINCESS Referring Unavailable DEDE, FRANCIS Attending Unavailable LADONNA, PRINCESS Referring Unavailable MCCONNELL, JIN Attending Unavailable LADONNA, PRINCESS Referring Unavailable DEDE, FRANCIS Attending Unavailable LADONNA, PRINCESS Referring Unavailable DEDE, FRANCIS Attending Unavailable LADONNA, PRINCESS Referring Unavailable MCCONNELL, JIN Attending Unavailable LADONNA, PRINCESS Referring Unavailable MCCONNELL, JIN Attending Unavailable LADONNA, PRINCESS Referring Unavailable MCCONNELL, JIN Attending Unavailable LADONNA, PRINCESS Referring Unavailable MCCONNELL, JIN Attending Unavailable LADONNA, PRINCESS Referring Unavailable DEDE, FRANCIS Attending Unavailable LADONNA, PRINCESS Referring Unavailable DEDE, FRANCIS Attending Unavailable LADONNA, PRINCESS Referring Unavailable Allergies Allergy Classification Reported Allergen(s) Allergy Type Date of Onset Reaction(s) Facility (1 source) No Known Medication Allergies; Translations: [No Known Medication Allergies] Propensity to adverse reactions (disorder) [facility] Repository Medications Current Medications Medication Drug Class(es) [...] hours as needed for knee replacement pain, [facility]/pharmacy #[id number], 160, cm, 08/09/22 5:49:00 EST, Height/Length [...] day(s), # 30 tab(s), Refills(s) 0, Pharmacy: [facility]/pharmacy #[id number], 160, cm, 08/09/22 5:49:00 EST, Height/Length [...] BID, # 20 cap(s), Refills(s) 0, Pharmacy: [facility]/pharmacy #[id number], 160, cm, 08/09/22 5:49:00 EST, Height/Length [...] the morning Levothyroxine Active 0 .ROUTE .COMPLEX 90 January 18, 2024 12:30pm TAKE 1 TABLET BY MOUTH EVERY DAY IN THE MORNING ON AN EMPTY STOMACH Start: 01-18-2024 End: 01-18-2024 take 137 ug by mouth once daily Levothyroxine Disconti nued 137 MCG PO Daily January 18, 2024 12:00am January 18, 2024 12:31pm Start: 08-06-2022 take 1 tablet by luis m th once daily levothyroxine 137 mcg (0.137 mg) Tab 137 mcg = 1 tab(s), Oral, Daily, Refills(s) 0, Thyroid Start Date: 08/06/22 Status: Ordered take 1 tablet by luis m th once daily in the morning Levothyroxine Sodium [...] 08-30-2022 take 1 tablet by luis m th once daily metoprolol 25 mg ER Tab [...] Start: 10-15-2022 take 1 capsule by [facility] every twenty-four hours Effexor XR 150 MG 1 capsule with food Orally Once a day for 30 day(s) Sep, Active Start: 09-16-2022 take 1 capsule by mo ut every twenty-four hours Effexor XR 75 MG [...] Plasmaon 01-10-2024 Albumin [Mass/Vol] 3.8 g/dL 2.9-4.4 [facility] Glucose mean value [Mass/vol ume] in Blood Estimated from glycated hemoglobinon 01-10-2024 Average glucose Estimated from glycated hemoglobin (Bld) [Mass/Vol] 123 mg/dL [facility] - Chemistry and C hemistry - challengeon 01-10-2024 Cobalamin (Vitamin B12) [Mass/Vol] 359.0 pg/mL 193.0-986.0 [facility] TSH Qn 1.183 m[IU]/L 0.358-3.740 [facility] - Hematology and Cell countson 01-10-2024 HbA1c (Bld) [Mass fraction] 5.9 % 4.5-6.2 [facility] Comment on above: ADA RECOMMENDED LIMI T 4.0 - 6.0ADA THERAPEUTIC TARGET < 7.0ACTION SUGGESTED> 7.0 No Panel Informationon 01-09 Folate 13.70 ng/mL 8.60-58.90 [facility] Protein Electrophoresis M-Tu Not Observed g/dL Not Observed [facility] Protein Electrophoresis Note Comment . [facility] Comment on above: Protein electrophore sis scan will follow via computer,mail, or distribution center manager delivery.Performed at: [address] [id number] Director: Rylan Agustin PhD, Phone: [phone] Protein [Mass/volume] in Ser um or Plasmaon 01-10-2024 Protein [Mass/Vol] 6.6 g/dL 6.0-8.5 [facility] Serum globulin measurement ( mass/volume)on 01-10-2024 Globulin (S) [Mass/Vol] 2.8 g/dL 2.2-3.9 [facility] Serum or plasma albumin/glob ulin mass ratioon 01-10-2024 Albumin/Globulin [Mass ratio] 1.4 {ratio} 0.7-1.7 [facility] Serum or plasma alpha 1 glob ulin measurement by electrophoresis (mass/volume)on 01-10-2024 Alpha 1 globulin Elph [Mass/Vol] 0.2 g/dL 0.0-0.4 [facility] Serum or plasma alpha 2 glob ulin measurement by electrophoresis (mass/volume)on 01-10-2024 Alpha 2 globulin Elph [Mass/Vol] 0.8 g/dL 0.4-1.0 [facility] Serum or plasma beta globuli n measurement by electrophoresis (mass/volume)on 01-10-2024 Beta globulin Elph [Mass/Vol] 0.9 g/dL 0.7-1.3 [facility] Serum or plasma gamma globul in measurement by electrophoresis (mass/volume)on 01-10-2024 Gamma globulin Elph [Mass/Vol] 0.8 g/dL 0.4-1.8 [facility] Coding Summary.on 12-20-2022 Coding Summary. CD:[id number] Ww +PGhlYWQ+OG2EILTbT09fe XGeaH4mL3WDKLdPOrlsWFP FWTuSAzWpxqIiOQ6piUQpQ XJu IC8+BT7hZMVaFebgwEXrt7 I7fCZ6K76kzv0jEPceeQW0 OCBcBfGzhleze7fokWo0OS cuNmluOyBt UJIrjX47CWX1jX21Md00iF XbdIHee2pucIz7GeJpMAIm GJH3oAsdQXtdc5QoEFOsG6 8hxPAqq3L3 NDOryBlnmVBbMoJpeOF6pH 3tHCiygojbw9hdjdxdThb0 pe78lJTjn0C1rDX8B0Vuma H0MLNzxRNy DmqioSDHyR2ijteyp6ytjz moRtDiHVVlKEn2HZw8NRUe nEneJeKsVF10IGE8GIBppe LiA9QkHWXv bEkeUdM8w9Q6Fi8VH3JSPb loU5FOMSJUDBoilRV+PC90 fv56G0KiUbbkBwd1YSNhZE H5kMQ2yJ2w HLReXVkxk7H6hTV1D8Oapd Mdyc7vj5xqTDFnWFojB15g gXLfi7I8MQLakBM9TCMuzQ huSkGljV11 Oyc+AFGynEqga2VwMwkgq4 fkr2utlPm5EsrtRSVajkEb qBqnKEG3h2EmCp4qSYCiiZ C8vKS0vR5h CeEaUhX2IDgsP468CxZciC FyQefuV88jA7XysQZ+PHRy Sjc5SZEcyPdmTV6gJ0ZzCZ RpbmctbGVm qIxfAC5oGMCmlkulUILlmE 0vHIMxI8w8YaYlDuQ2OCfn J2TtHQGvdzkfRq68tX4wQi WqRiY6HHja X8OwhiZ4WSZjrLUtFBegOH N8T31ii7U6SHJiVBHfOOG1 lBG4tP0gbTylqadieZRceZ sgdmVydGlj NYnwCWhtD036DPBriVixWx NvZGluZyBEYXRlOiAgMDQv MjQvMjAyMzwvdGQ+PHRkIH U8kJdrFSFr pNYjSXqwCh5kwFqwmHcmLF 1cUMEfoaxhZZUhdF3pPFAh nILnoCskXH9iJWQxylxdi3 34QnPpHZZ5 TYXsiORrI9LcnF6vIxHaOL OsRJAlN7CncPKqRAzxW386 ALvtTbP9HTPwgmIaE8VoQL FsaWduOiB0 q5U2Gz8Vr5EejnyyE0ZcwP XtKeFkHzrvFBi1S8WdBire dHI+RV31KFShPB43OWj6PQ C2wNrhZBer MSEpZ5SkxO5zFfXbJZDpQZ RkOyc+PHRhYmxlIHdpZHRo EKhjRGIoCaSdfEysXS1wBl 9yZGVyLWNv nMexcZEiNsZkl3lfTLSbKY kkQF3yuHenP2ZwkWM4FIAs z8m1Wf44O87jK5UysGE+PG ItiMC6iRU0 kN7bVnEkGdX6TVrqZ078Sd YkpQDxXbldq6qty1qstFi1 SoX3FQPhwvDlsKpfXKB3z8 IuXf54D64c IHdpZHRoPSIxNSUiIHZhbG bmwq9beN0uEw9+PGNvbCB3 xTG1hM0cVkOaTtH9FTjlR2 49InRvcCIv Rztkp7rwu1wsdTa9BjFzBR KypvUwyDpzOYT7u1AbOu04 E6RusFkkx7WaYth6hq59vI Tyi1Y6tMS8 C0KfHAPgfwueaWWfvRizME 6sDJPzonzrRROmaQ6vFKMy E9i4YhUqQcJ1QRkjU6Lngs X2QPCbiXLs JYLysHPNmW2myjkvr7pueb eiWqQaWWRpTYy1GTh2URGc gZgwPpHeQBP6VkL4SCL4jM TlzC3fwRef fxqvyR7rUiq+TUF0tXCrgI LQRK9tDsasxMJ+PHRkIHN0 mMwuFYwqOOOduS6uFUQbJ9 t2NoWmDgF8 YDiuW5TrgxR8PYYisMQgDL TerACPxC6alilzh7rrrqjs ZbEeKSLcMMx3JJc6JNLwyZ duOiBsZWZ0 BpB3HMQ2uDIsyA9nvJurgf glcN4qJvf+QmlydGggRGF0 VCy3Y7NmTpk6IZRulFrwCO 0ncGFkZGlu Fc9sgUjebGwwKD9uSHEajt ewi762VqPuu1yaBQOwlHVf HJaxRSU2A87jt2R6OIMcIK FpCZR1jVW9 xG9gjMdqzpapwNUfxCqvse TofKbkJIfjUJuoA431GJIz jNdtKvWcHLq5X8ShXpo5MY AhbHoiXU2r jKVoGSljRj8yzVzvqAphSY 2mZTPyhabjb917HqEjm5cl TCEalQWlQWucHTQ7T31ab8 W2QJInAFZg SMR5oOC4rT3arJpfgkjifI VmdDsgdmVydGljYWwtYWxp M058RMMacZdzNkBleGf3F3 LmVsj1KCKd eAzvTK9pyBNdDGpeKy9tzE fbdDsdIO1mGLSjswmtc949 VfNdp4heNZCqgUDvFMvzLZ G7J90um6L9 TRMoBUFvJHS8qTO0kX0kfH lnbjogbGVmdDsgdmVydGlj TRwkRLekH665IMNxuWrtNw BhdGllbnQg BMzcONr2V0XaEbjkhVC+PC 65LQHbNH80jAJzgBScn0fv pLc8RxAlAFCeJMN1aBskLA uwt4AgJJJd G15seMPmp6D5IXRbaWmyeG WgXlVblMH3iJ0sLLfxpdop q2qsimztDbhfe4zwjk37cK 37F76zLAhb ZHRoPSIzMCUiIHZhbGlnbj 5qeX4eLf5+BPMmfQP9xSG3 zG4tXBYpCfC2NVyrQ192Jx RvcCIvPjxj c7ikc9gbrOq9UoM1UJNucs TjfXjeYLX2f2NvOq05J28z IHdpZHRoPSIyMCUiIHZhbG efvf9eqE9u Ii8+DAJymPR2gKU9qV8oEo LtGfW6OQaiN127ZfFpeUNe VrwsV21xK7KqzEG+PHRyPj b6EEVlbIrp ST1slHNxSCeuIy7fMCE5Uv TcLsDzWDznJ2IwBNDrpfci qbkpwDJ2XZVvKTMnrD26Eu 9udDogMTBw uCPSnG4wfkeme4jtqzpiOz BdVRKdRJg5FWd2KZPkrGdt RjHcQPX9CsF0SBP5wOLlsG 1hbGlnbjog aJ0tX0OzMUAxdkyuGf77gQ 6hDpAqAfW0QWfeImw+Uk9I XwJKI2kQCoomB6XRBJ55D4 DxVip9MEOq jMmnPR8tmEQnYYjkMv7hoA rawDabBI6ePCOdqnasAHTe lE7jOKIuyZXjaOyeYV7eBD Nigjqqn154 ZeTnARP8XWQceXJbU0EvgJ 4hEuUaARUgLIUaW8JrxSGa IZgzA664KRdfToQ3EWDzoy UzD0IfRAOx uQxcOyL3q7N9Zs5tFs0oXR 6jPAU6EC83XK22uRFbg7O0 zAI1P6SlLRQrqiowfboqlQ E2BPDvKUUn wW64cLIcORurHk0rg1Q1w1 24SXFeVOCbuK85Mz0woGrx YMIwuPYEfG9ihqxpg8arzn ogIzAwMDAw AAo0DNb7RFZgiVxiSjNdVE P2EzQ1TMF9cIQflU7nvXuh tpqbnC0wDuw+NjggWWVhcn F3K5WnRpf9 AFNinMvhRQ4vtCXyBPglOn 2ylKptcDukFK1hCANnmytj CJPvhJ5vFMCxkJZubKcuWT 4wNTBpbjtm l749DnLgJXR3GSZexWVlE4 MpjW8aGzSuBPVdCBKcL7Ec iFHnYQwhP955BZmvDsV0TU WxmjFnS2Zv EWWokEofVoL5z0Q4Jn0JZR 4rmDL7Y3WoVsl9QXFgnHsn OU2yrHZiMBviRe4xjTnrzN psTL1cEJFv odbkMOLddZ6hDYJxqVMnwB ldZM8bKTIelzyjo093MdRc XBV4WFNmgDFlO1BrvD9rPl AjMDAwMDAw Y2VbeFWkMPglY810VIzsYi C7PYKciyArS0CcTIOddEjn HdF1j9M0Pj9EenLqsOuwtc J5J1QmCykz dHI+LK48QZLoEM40yTYpkD Qhj8lybUm0SlYbHUPrITI2 xMakLFxgt0XnRKKxU97hsI Pvg6B9QSPn sRlrdIYzOfIorKQ6jG4cRC hoipnws9mwqgebOdedv7zf jr53rX68Z04bUXwvDRInNE IzMCUiIHZh jIdrzs5puV3vDf1+PGNvbC B5hAZ8cW1zDuHwTsE9NViy P769YbDmfFOwZxmjt9bdw6 veiDp0WxNc NWHxyzWbgTrwPRU9t8FhQd 89V62sVLztCAWpVMGzCQKc YBPcbAqhpe8cwK4hNz6+PC 6xy3kuwp22 iJ02fCW+USXjKDU3fWaqPG rdYMGmsP6kCKioIvE9XFAg DkMviM72qRDfGNahHa2xrM yrpIsuYV9z VICifxsam432YaYdu8xfCN RnqTMhFQpoEIG4Z22wi9M5 DIMkTGZuCCY9oQK5yW6fzI lnbjogbGVm dDsgdmVydGljYWwtYWxpZ2 03GWZjdChkWnFbyDKyT3fa vkOGZL7hCbngyVT+PHRkIH X4jBxpSQdg KBMjaB9hQENkF6l8QmJnTf W9XKfdZ3XoznD9HVFhiZNi LSCpjGSOpL0tujxkl1tjpf ogIzAwMDAw MPx3ICd9JBMrmMqnRfTiEE J4GuA3TKO5jWVtzM8fvWao qzdymL6oQzx+RklOOjwvdG Q+PHRkIHN0 uFalNUnnTQPxfU3hKCViF6 w9ElPpJwQ3ZMsyZ6RsjtG6 MQFacDMbWTWexLBOaP5vqy ijh3mlnqpk PsKcHRYhKQj0CAj8IABmrV uvSsHbXYG4DnS8RWW3gBAy pW7aeHokjtdaxF7vKjj+TV JOOjwvdGQ+ CZAkEQF9kYfgRLtiACJckH 7mFVKfP3b2KqVyZnH1TClk Q5MajdT8ADXtyEXoANAwiN SSuA7kecpo d5prihglQfBzBROjDUe5UA l7DXTpyTkgMfLmYLN4LxD5 FJV9lZNttT6qgEyuaizmfM 9wOyc+UGF5 JBG5TT21VD82B7SgPbdgyH FibGU+PHRhYmxlIHdpZHRo ZTizDYPdFqIibXntYQ0nZy 9yZGVyLWNv bGxhcHNl (more content not included)... Normal [facility] IntraOperative Documentson 0 12-20-2022 IntraOperative Documents [id number]. [id number]:127 Normal [facility] Operative Reporton 3 Operative Report Patient: CECI BURROWS Age: 67 years Sex: Female : 1955 Associated Diagnoses: None Author: MD Frost Ahmad F Postoperative Information Date/ Time: 12/13/2022 09:00:00 Preoperative [...] Using maximal sterile barrier technique per current [facility] guidelines including hand hygeine, Guidance (Ultrasound used [...] surgeon request for post-op pain management. Normal [facility] Comment on above: Result Comment: Elec tronically Signed By: MD Frost Ahmad F\.br\Date and Time Signed: 04/23/23 13:04 EDT IntraOperative Documentson 0 12-17-2022 IntraOperative Documents [id number]. [id number]:127 Normal [facility] Auto Diffon 12-14-2022 Basophils/100 WBC (Bld) 0.6 % Normal 0.0-2.0 [facility] Comment on above: Order Comment: Order Added by Discern Expert. Performed By: #### 2 332286, 5577570, 0940875, 29940143, 8750200, 7841640 ####[facility] [address] [place] [address] Basophils/Leukocyte s Auto (Bld) [Pure # fraction] 0.0 E9/L Normal 0.0-0.2 [facility] Comment on above: Order Comment: Order Added by Discern Expert. Performed By: #### 2 126064, 1079848, 8083481, 74952212, 1262056, 5223060 ####[address] [address] Eosinophils/100 WBC (Bld) 1.0 % Normal 0.0-8.0 [facility] Comment on above: Order Comment: Order Added by Discern Expert. Performed By: #### 2 933377, 7874911, 0192491, 88314655, 1050553, 2703090 ####[facility] [address] [place] [address] Eosinophils/Leukocy julia Auto (Bld) [Pure # fraction] 0.1 E9/L Normal 0.0-0.5 [facility] Comment on above: Order Comment: Order Added by Discern Expert. Performed By: #### 2 841902, 8946406, 6394928, 05450499, 0419177, 6180040 ####[address] [address] Lymphocytes/100 WBC (Bld) 11.2 % Low 14.0-50.0 [facility] Comment on above: Order Comment: Order Added by Discern Expert. Performed By: #### 2 666438, 4400430, 2563975, 86305181, 3455078, 4348743 ####[address] [place] [address] Lymphocytes/Leukocy julia Auto (Bld) [Pure # fraction] 0.7 E9/L Low 1.0-4.0 [facility] Comment on above: Order Comment: Order Added by Discern Expert. Performed By: #### 2 780602, 3221072, 9310402, 59329783, 2372793, 2190725 ####[address] [place] [address] Monocytes/100 WBC (Bld) 7.7 % Normal 4.0-14.0 [facility] Comment on above: Order Comment: Order Added by Discern Expert. Performed By: #### 2 544036, 7475552, 0225801, 65931784, 1692774, 9004152 ####[address] [address] Monocytes/Leukocyte s Auto (Bld) [Pure # fraction] 0.5 E9/L Normal 0.2-1.0 [facility] Comment on above: Order Comment: Order Added by Discern Expert. Performed By: #### 2 737212, 2340734, 6520907, 15523471, 2196627, 7383381 ####[address] [address] Neutrophils/100 WBC (Bld) 79.5 % High 36.0-75.0 [facility] Comment on above: Order Comment: Order Added by Discern Expert. Performed By: #### 2 677013, 5578404, 8846302, 53906701, 1877082, 7807124 ####[address] [place] [address] Neutrophils/Leukocy julia Auto (Bld) [Pure # fraction] 5.1 E9/L Normal 2.0-7.5 [facility] Comment on above: Order Comment: Order Added by Discern Expert. Performed By: #### 2 716356, 6399011, 4000618, 36853898, 9220356, 5228938 ####[facility] [address] [place] [address] BUNon 12-14-2022 Urea nitrogen [Mass/Vol] 12 mg/dL Normal 5-21 [facility] Comment on above: Performed By: #### 2 345662, 9155116, 8290557, 08059459, 5365500, 2315929 ####[facility] [address] [place] [address] CBC w/ Auto Diffon Erythrocyte distribution width (RBC) [Ratio] 14.7 % High 10.9-14.2 [facility] Comment on above: Performed By: #### 2 348251, 8638983, 3985307, 80658782, 6383503, 5655950 #### [facility] [address] [place] [address] Hematocrit (Bld) [Volume fraction] 42.3 % Normal 34.0-46.0 [facility] Comment on above: Performed By: #### 2 506589, 6897229, 8638983, 74552893, 2741381, 1115866 #### [facility] [address] [place] [address] Hemoglobin (Bld) [Mass/Vol] 13.4 g/dL Normal 12.0-16.0 [facility] Comment on above: Performed By: #### 2 670069, 4359534, 5892281, 90421633, 3384437, 4069121 #### [facility] [address] [place] [address] MCH (RBC) [Entitic mass] 28.1 pg Normal 27.0-34.0 [facility] Comment on above: Performed By: #### 2 714905, 3614068, 5912062, 85382633, 4858116, 6682853 #### [facility] [address] [place] [address] MCHC (RBC) [Mass/Vol] 31.8 g/dL Normal 31.4-36.0 [facility] Comment on above: Performed By: #### 2 668822, 9979175, 9874511, 37662510, 5180155, 2451027 #### [facility] [address] [place] [address] MCV (RBC) [Entitic vol] 88.5 fL Normal 80.0-100.0 [facility] Comment on above: Performed By: #### 2 255321, 4238028, 2197714, 21428338, 8523680, 0661242 #### [facility] [address] [place] [address] Platelet mean volume (Bld) [Entitic vol] 7.3 fL Normal 6.4-10.8 [facility] Comment on above: Performed By: #### 2 440308, 9248997, 6665623, 39910868, 7915152, 6231188 #### [facility] [address] [place] [address] Platelets (Bld) [#/Vol] 193.0 E9/L Normal 150.0-500.0 [facility] Comment on above: Performed By: #### 2 767519, 3840867, 3407022, 67080470, 6218235, 6318690 #### [facility] [address] [place] [address] RBC (Bld) [#/Vol] 4.8 E12/L Normal 4.3-5.9 [facility] Comment on above: Performed By: #### 2 947400, 8832601, 9740696, 87538487, 9836052, 7351571 #### [facility] [address] [place] [address] WBC corrected for nucl RBC Auto (Bld) [#/Vol] 6.4 E9/L Normal 4.0-11.0 [facility] Comment on above: Performed By: #### 2 421952, 2260259, 0138966, 42283645, 1427809, 4761019 #### [facility] [address] [place] [address] Consent for Anesthesiaon 04- 18-2023 Consent for Anesthesia [id number]:127 Normal [facility] Creatinineon 12-14-2022 Creatinine [Mass/Vol] 0.7 mg/dL Normal 0.5-1.3 [facility] Comment on above: Performed By: #### 2 277600, 2182464, 6501739, 28702439, 5342975, 8413475 ####[facility] [address] [place] [address] Discharge Instructionson Discharge Instructions [id number]. 00CD:127 Normal [facility] Discharge Note-Nursingon Discharge Note-Nursing CECI BURROWS :1955 Visit Date:12/13/2022 Inpatient Discharge Instructions Your [...] Dressing On Post-op day 10 Pharmacy Information [facility] Discharge Instructions Discharge Instructions New Follow Up Appointments after Discharge Follow Up with Gwyn Garcia When: 01/12/2023 09:30 AM EDT Comments: Keep scheduled appointment Where: [address] [place] [address] Business (1) Follow Up with CAMILLE WILLIAMSON When: Comments: No PCP appointment required for surgery patient. Please follow up with ORTHO. Thank you! Where: [address] [place] [address]- Business (1) Medications What How Much When Why Instructions Next Dose Unchanged acetaminophen-oxycodon e (Percocet 5 mg-325 mg oral tablet) See instructions Localized osteoarthritis of left knee Take one to two every 4 hours as needed for pain from knee surgery Pickup at [facility]/pharmacy #6177 NEEDED FOR PAIN, AFTER 1215 PM ON 12/14 Unchanged aspirin (aspirin 325 mg Tab) 1 Tablets By Mouth Every day Duration: 30 Days Start the day after knee surgery Pickup at [facility]/pharmacy #6177 12/15 @ 9 AM Unchanged docusate (Colace 100 mg Cap) 1 Capsules By Mouth 2 times a day Pickup at [facility]/pharmacy #6177 12/14 @ 9 PM Unchanged levothyroxine (levothyroxine 137 mcg (0.137 mg) Tab) 1 Tablets By Mouth Every day 12/15 @ 7 AM Unchanged metoprolol (metoprolol 25 mg ER Tab) 1 Tablets By Mouth Every day 12/15 @ 9 AM Pharmacy Information [facility]/pharmacy #[id number]: [address], [place] [id number] [phone] What How Much When Comments Stop Taking [...] VISCOSITY HIGH [6194-1-010] 12/13/2022, Unknown - RODDY: {01}[id number]{10} [id number] CEMENT SIMPLEX PLAIN (more content not included)... Normal [facility] IntraOperative Documentson 0 12-14-2022 IntraOperative Documents [id number]. 00CD:127 Normal [facility] Lyteson 12-14-2022 Anion gap [Moles/Vol] 10 mmol/L Normal 6-16 [facility] Comment on above: Performed By: #### 2 [id number], [id number], 8072174, [id number], 1758227, [id number] ####[facility] [address] [place] [address] Chloride [Moles/Vol] 101 mmol/L Normal 101-111 [facility] Comment on above: Performed By: #### 2 [id number], 8799509, 1877257, [id number], 7926168, 0968493 ####[facility] [address] [place] [address] CO2 [Moles/Vol] 27 mmol/L Normal 21-31 [facility] Comment on above: Performed By: #### 2 [id number], 8012188, 8608104, [id number], 1201182, 2769399 ####[facility] [address] [place] [address] Potassium [Moles/Vol] 3.5 mmol/L Normal 3.5-5.3 [facility] Comment on above: Performed By: #### 2 [id number], 2668037, 1462024, [id number], 5220734, 6117626 ####[facility] [address] [place] [address] Sodium [Moles/Vol] 134 mmol/L Low 135-145 [facility] Comment on above: Performed By: #### 2 793086, 4058607, 5398456, [id number], 6618612, 7782066 ####[facility] [address] [place] [address] Patient Education - Texton 0 12-14-2022 Patient Education - Text [place], [place] [facility] DISCHARGE INSTRUCTIONS TOTAL KNEE [...] will continue at home, possible with the care management assistant of Home Health Physical Therapy or [...] too soon, 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 It is therefore advised not to drive until after your first office visit following surgery FOLLOW-UP OFFICE VISIT: __ Gwyn Garcia, DO [facility] [address] [place] [address] Reviewed: 12-04 aspirin (oral) ( pir in) Arthritis Pain, Aspi-Cor, Aspir-Low, Ivy Plus, Durlaza, Ecotrin, Miniprin, Vazalore What is the most important information I should know about aspirin? Aspirin can cause Mark's syndrome, a serious and sometimes fatal condition in children. What is aspirin? Aspirin is a salicylate (da-JZH-dy-ate) that is used to treat pain, and [...] planned surger (more content not included)... Normal [facility] Preoperative Documentson Preoperative Documents [id number]. 00CD:127 Normal [facility] Progress Note-Physicianon Progress Note-Physician Patient: CECI BURROWS Age: 67 years Sex: Female : 1955 [...] All Problems Knee osteoarthritis / SNOMED CT 090224769 / Confirmed Hypothyroid / SNOMED CT 30125117 / Confirmed At risk for falls / SNOMED CT 085515008 / Possible Problem added when Risk for [...] d/c home today with 360 rehab.. Normal [facility] Comment on above: Result Comment: Elec tronically Signed By: Gwyn Garcia DO\.br\Date and Time Signed: 12/14/22 06:58 EDT eGFRon 12-14-2022 GFR/1.73 sq M.predicted among blacks MDRD (S/P/Bld) [Vol rate/Area] mL/min/{1.73_m2} Normal >=59 [facility] Comment on above: Order Comment: Order added by Discern Expert. Result Comment: eGFR is race adjusted. AA=. Performed By: #### 2 616050, 8566742, 1830820, [id number], 8799825, 8290907 ####[facility] [address] [place] [address] GFR/1.73 sq M.predicted among non-blacks MDRD (S/P/Bld) [Vol rate/Area] mL/min/{1.73_m2} Normal >=59 [facility] Comment on above: Order Comment: Order added by Discern Expert. Result Comment: [employer] taylor kidney disease could be indicated at eGFR's of less than 60 mL/min/1.73m2. Kidney failure is indicated at less than 15 mL/min/1.73m2. Performed By: #### 2 [id number], [id number], 8684149, [id number], 9508789, [id number] ####[facility] [address] [place] [address] ABO/Rhon 12-13-2022 ABO/Rh Positive Invalid Interpretation Code [facility] Comment on above: Performed By: #### 2 760879, 8136981, [id number], 6064209, 0565773, 8777633 #### [facility] Laboratory [address] [place] [address] ABO/Rh History Checkon 12-13 ABO/Rh History Check Verified Hx Blood Type Normal [facility] Comment on above: Performed By: #### 2 131769, 2258282, [id number], 6832147, 4980574, [id number] #### [facility] [address] [place] [address] ABSCon 12-13-2022 ABSC Gel Interp Negative Normal [facility] Comment on above: Performed By: #### 2 600602, 1758582, [id number], 5257839, 5761433, 3884710 #### [facility] [address] [place] [address] Blood Bank ID#on 12-13-2022 BBID# [id number] Invalid Interpretation Code [facility] Comment on above: Performed By: #### 2 561918, 7099183, 14074030, 7914271, 8815363, 9786693 #### [facility] [address] [place] [address] Consent for Treatmenton 11-27 Consent for Treatment [id number]#1.0 0CD:127 Normal [facility] H&P Updateon 12-13-2022 H&P Update [id number]#1.0 0CD:127 Normal [facility] Interdisciplinary Note - Arabella n 12-13-2022 Interdisciplinary Note - OT OT six clicks score: =home with ortho 360. Pt completes ADL functional transfers mod A x2 at time of eval with slow pacing. Pt has necessary DME for safety. Plan is to return tomorrow to review full body dressing prior to discharge home. Normal [facility] Main OR Intraoperative Recor don 12-13-2022 Main OR Intraoperative Record IntraOp Document Type FT Summary Primary Physician: Gwyn Garcia DO Finalized Date/Time: 12/13/22 11:05:10 Pt. Name: CECI BURROWS/Sex: 1955 Female Med Rec #: [id number] Physician: Gwyn Garcia DO Financial #: [id number] Pt. Type: A Room/Bed: Admit/Disch: 12/13/22 06:46:46 - Institution: Case Times FT Entry 1 Patient Times In Room 12/13/22 09:31:00 Out Room 12/13/22 11:02:00 Procedure Times Start 12/13/22 10:05:00 Stop 12/13/22 10:54:00 Anesthesia Times Start 12/13/22 09:31:00 Stop 12/13/22 11:02:00 Block Timeout w/ 12/13/22 09:25:00 Anesthesia Last Modified By: Ranjit BAHENA, Linda Calderon 12/13/22 11:01:59 General Comments: BLOCK DONE BY Tammy LONDONO CRNA AT [id number], ASSISTED BY Deena ACOSTA RN; HR= 65, O2= 99%; SPINAL DONE BY Tammy LONDONO CRNA AT 0942 -Clarence LOBATO RN Case Attendance FT Entry 1 Entry 2 Entry 3 Case Attendee Jackie CAT CRACKER OPERATOR, Arun Garcia DO, Gwyn Thompson HYDRAULIC OPERATOR, Magui Powlel Role Performed CAT CRACKER OPERATOR Surgeon - Primary HYDRAULIC OPERATOR/SA Time In 12/13/22 09:31:00 12/13/22 09:31:00 12/13/22 [...] BAHENA, Dennis Irwin, Luci Calderon Role Performed Teacher Vocational Training - Primary Scrub - Primary Staff - [...] 11:02:00 11:02:00 11:02:00 Entry 7 Case Attendee Violette BAHENA, Erick Chester Role Performed Staff - Other Time In 12/13/22 09:31:00 Time Out 12/13/22 10:49:00 Procedure KNEE TOTAL ARTHROPLASTY(Left) Comments 3RD SCRUB Last Modified By: Linda Lobato RN 12/13/22 11:02:00 Perioperative Protocols FT Pre-Care Text: [...] Garcia DO, Given Participants Arun Londono CRNA, Magui Thompson CST, Ferrer RN, Linda Calderon, Dennis Goff, Luci Catalan Krupp RN, Erick Chester Time Out Complete 12/13/22 10:02:00 Outcomes Met? Yes Last Modified By: Lidna Lobato RN 12/13/22 10:14:33 Post-Care Text: The [...] Outcomes Met? Yes OSTEOARTHRITIS Last Modified By: Ranjit BAHENA, Linda Lawler P 12/13/22 10:15:58 Post-Care Text: The patient is free from signs and symptoms of infection Skin Assessment (Pre Procedure) FT Pre-Care Text: Implements protective measures to prevent skin/ tissue injury due to thermal o (more content not included)... Normal [id number]\.br\ Usage Data FT \.br\ Implant Site Knee L Knee L Knee L\.br\ Implant Site Comment \.br\ Quantity 1 1 1\.br\ Implant/Explant Date \.br\ Implanted By Cam QUEVEDO, Gwyn Garcia DO, Gwyn Garcia DO, Gwyn Spencer\.br\ Explant Reason \.br\ Biological Implants \.br\ Biological Source \.br\ Donor Number \.br\ MR Classification Unknown Unknown\.br\ Temperature \.br\ Reconstitution \.br\ Method \.br\ Outcomes Met? Yes Yes Yes\.br\ Internet Security Specialist Model \.br\ Number \.br\ Last Modified By: Ranjit BAHENA, Linda Lobato RN, Linda Ram RN\.br\ Nuris P 12/13/22 Nuris P 12/13/22 Nuris [...] CEMENTED AOX\.br\ Serial Number \.br\ Lot Number [id number]\.br\ Load Number \.br\ Internet Security Specialist DEPUY DEPUY DEPUY\.br\ Catalog ?# [id number] [id number] [...] 1\.br\ Implant/Explant Date \.br\ Implanted By Cam DO, Gwyn Garcia DO, Gwyn Garcia DO, Gwyn Spencer\.br\ Explant Reason \.br\ Biological Implants \.br\ Biological Source \.br\ Donor Number \.br\ MR Classification \.br\ Temperature \.br\ Reconstitution \.br\ Method \.br\ Outcomes Met? Yes Yes Yes\.br\ Internet Security Specialist Model \.br\ Number \.br\ Last Modified By: Ranjit BAHENA, Linda Lobato RN, Linda Ram RN\.br\ Nuris P 12/13/22 Nuris P 12/13/22 Nuris [...] SPECIMEN: LEFT KNEE BONE AND SOFT TISSUE -Clarence LOBATO RN\.br\. br\ Temperature Control \.br\ Entry 1 \.br\ Temperature Control MISTRAL FORCED AIR Quantity 1\.br\ Aid WARMING SYSTEM UNIT\.br\ Fluid/[place] Unit Mistral warming system Setting 43/HIGH\.br\ Body [...] By: Linda Lobato RN\.br\ Nuris P 12/13/22\.br\ 10:53:28\.br\.b r\ Case Comments \.br\ \.br\.br\ Finalized By: Linda Lobato RN\.br\.br\ Document Signatures \.br\ Signed By: \.br\ Linda Lobato RN 12/13/22 11:05 [facility] Main OR PACU I Recordon 11-27 Main OR PACU I Record PACU Phase I Document Type FT Summary Primary Physician: Gwyn Garcia DO Finalized Date/Time: 12/13/22 13:11:19 Pt. Name: CECI BURROWS./Sex: 1955 Female Med Rec #: [id number] Physician: Gwyn Garcia DO Financial #: [id number] Pt. Type: I Room/Bed: [place] [address] Admit/Disch: 12/13/22 06:46:46 - Institution: Case Times [...] By: Rachel Shaver I 12/13/22 13:11 Normal [facility] Main OR Preoperative Recordo n 12-13-2022 Main OR Preoperative Record PreOp Document Type FT Summary Primary Physician: Gwyn Garcia DO Finalized Date/Time: 12/13/22 10:22:35 Pt. Name: MARANDA BURROWSANTHONY Gallagher/Sex: 1955 Female Med Rec #: [id number] Physician: Gwyn Garcia DO Financial #: [id number] Pt. Type: A Room/Bed: [facility] Admit/Disch: 12/13/22 06:46:46 - Institution: [...] By: Linda Lobato RN 12/13/22 10:22 Normal [facility] Monitor Recordon 12-13-2022 Monitor Record [id number]#1. 00CD:127 Normal [facility] Monitor Record [id number]#1. 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 This was sized at a #5 DePuy Attune. Anterior, posterior chamfer cuts as well [...] patient's condition satisfactory Wesley Conte Dictated: 12/13/2022 [id number] Transcribed: 12/13/2022 cc:Camille Williamson M.D. [facility] Comment on above: Result Comment: Elec tronically Signed By: Gwyn Garcia DO\.br\Date and Time Signed: 12/13/22 15:26 EDT Operative Report Patient: CECI BURROWS Age: 67 years Sex: Female : 1955 [...] Room in stable and satisfactory condition.. Normal [facility] Comment on above: Result Comment: Elec tronically Signed By: Gwyn Garcia DO\.br\Date and Time Signed: 12/13/22 11:01 EDT Progress Note-Physicianon Progress Note-Physician Patient: CECI BURROWS Age: 67 years Sex: Female : 1955 Associated Diagnoses: None Author: MD Frost Ahmad F Postoperative Information Postoperative disposition: Postoperative disposition: To PACU. Optimetrix number: Optimetrix number [id number]. Anesthetic utilized: General. Health Status Allergies: Allergic [...] meets criteria ( To home ). Normal [facility] Comment on above: Result Comment: Elec tronically Signed By: MD Frost Ahmad F\.br\Date and Time Signed: 12/13/22 15:02 EDT Progress Note-Physician Patient: CECI BURROWS Age: 67 years Sex: Female : 1955 [...] BID, # 20 cap(s), Refills(s) 0, [id number], 160, cm, 08/09/22 5:49:00 EST, Height/Length Dosing, 114.3, kg, 08/09/22 5:49:00 EST, Weight Dosing Colace 100 mg Cap: 100 mg = 1 cap(s), Oral, BID, # 20 cap(s), Refills(s) 0, [facility], 160, cm, 08/09/22 5:49:00 EST, Height/Length Dosing, 114.3, kg, 08/09/22 5:49:00 EST, Weight Dosing Keflex 500 mg Cap: 500 mg = 1 cap(s), Oral, QID, Start the day after knee surgery, X 5 day(s), # 20 cap(s), Refills(s) 0, [facility], 160, cm, 08/09/22 5:49:00 EST, Height/Length Dosing, 114.3, kg, 08/09/22 5:49:00 EST, Weight Dosing Percocet 5 mg-325 mg oral tablet: See Instructions, 50 tab(s), Refill(s) 0, Take one to two every 4 hours as needed for pain from knee surgery, [facility], 160, cm, 08/09/22 5:49:00 EST, Height/Length Dosing, 114.3, kg, 08/09/22 5:49:00 EST, Weight Dosing Percocet 5 mg-325 mg oral tablet: See Instructions, 50 tab(s), Refill(s) 0, take one to two every 4 hours as needed for knee replacement pain, [facility], 160, cm, 08/09/22 5:49:00 EST, Height/Length Dosing, 114.3, kg, 08/09/22 5:49:00 EST, Weight Dosing aspirin 325 mg Tab: 325 mg = 1 tab(s), Oral, Daily, Start the day after knee surgery, X 30 day(s), # 30 tab(s), Refills(s) 0, [facility], 160, cm, 08/09/22 5:49:00 EST, Height/Length Dosing, 114.3, kg, 08/09/22 5:49:00 EST, Weight Dosing Documented Medications Documented levothyroxine 137 mcg (0.137 mg) Tab: 137 mcg = 1 tab(s), Oral, Daily, Refills(s) 0, Thyroid metoprolol 25 mg ER Tab: 25 mg = 1 tab(s), Oral, Daily, High blood pressure Problem list: All Problems Hypothyroid / SNOMED CT 56006951 / Confirmed Knee osteoarthritis / SNOMED [place] [address] (more content not included)... Normal [facility] Comment on above: Result Comment: Elec tronically Signed By: MD Margot, Andrew F\.br\Date and Time Signed: 12/13/22 15:00 EDT Urinalysison 12-13-2022 Bacteria LM Ql (Urine sed) TRACE Normal Trace [facility] Comment on above: Performed By: #### 1 [id number] #### [facility] Laboratory [address] [place] [address] Bilirubin Ql (U) Negative Normal Negative [facility] Comment on above: Performed By: #### 1 [id number] #### [facility] [address] [place] [address] Clarity (U) CLEAR Normal Clear [facility] Comment on above: Performed By: #### 1 [id number] #### [facility] [address] [place] [address] Color (U) YELLOW Normal Yellow [facility] Comment on above: Performed By: #### 1 [id number] #### [facility] [address] [place] [address] Epithelial cells.squamous LM.HPF (Urine sed) [#/Area] 0-2 Normal 0-2 [facility] Comment on above: Performed By: #### 1 [id number] #### [facility] [address] [place] [address] Glucose Test strip (U) [Mass/Vol] Negative Normal Negative [facility] Comment on above: Performed By: #### 1 [id number] #### [facility] [address] [place] [address] Hemoglobin Ql (U) Negative Normal Negative [facility] Comment on above: Performed By: #### 1 [id number] #### [facility] [address] [place] [address] Ketones (U) [Mass/Vol] Negative Normal Negative [facility] Comment on above: Performed By: #### 1 [id number] #### [facility] [address] [place] [address] [place].plasma/Lith ium.RBC (Bld) [Mass ratio] 0-3 Normal 0-3 [facility] Comment on above: Performed By: #### 1 [id number] #### [facility] [address] [place] [address] Mucus Ql (Urine sed) TRACE Normal [facility] Comment on above: Performed By: #### 1 [id number] #### [facility] [address] [place] [address] Nitrite Ql (U) Negative Normal Negative [facility] Comment on above: Performed By: #### 1 [id number] #### [facility] [address] [place] [address] pH (U) 6.0 [pH] Invalid Interpretation Code 5.0-9.0 [facility] Comment on above: Performed By: #### 1 [id number] #### [facility] [address] [place] [address] Protein (U) [Mass/Vol] Negative Normal Negative [facility] Comment on above: Performed By: #### 1 [id number] #### [facility] [address] [place] [address] Specific gravity (U) [Rel density] 1.020 Invalid Interpretation Code 1.005-1.030 [facility] Comment on above: Performed By: #### 1 [id number] #### [facility] [address] [place] [address] Type of Urine collection method Clean Catch Normal [facility] Comment on above: Performed By: #### 1 [id number] #### [facility] [address] [place] [address] Urobilinogen Qn (U) 0.2 {Tyson'U}/dL Normal 0.0-1.0 [facility] Comment on above: Performed By: #### 1 [id number] #### [facility] [address] [place] [address] WBC Auto Ql (U) 1+ Abnormal Negative [facility] Comment on above: Performed By: #### 1 [id number] #### [facility] [address] [place] [address] WBC LM.HPF (Urine sed) [#/Area] 6-15 Abnormal 0-5 [facility] Comment on above: Performed By: #### 1 [id number] #### [facility] Laboratory [address] [place] [address] XR Knee 1 or 2 Views Lefton [...] mGy = na DAP = na Normal [facility] Inpatient Patient Summaryon 12-08-2022 Inpatient Patient Summary [address] [address] [facility] Clinical Discharge Instructions PERSON INFORMATION Name: CECI BURROWS [facility]#:[id number] PHYSICIANS Admitting Physician: Gwyn Garcia DO Attending Physician: Gwyn Garcia DO PCP: CAMILLE WILLIAMSON MD Discharge Diagnosis: Localized osteoarthritis of left knee Comment: PATIENT EDUCATION INFORMATION Instructions: Cam - Total Knee Arthroplasty (CUSTOM) Medication Leaflets: Follow up: With: Address: When: Gwyn Garcia [address] [place], [place] [id number] Business (1) Comments: Keep scheduled appointment Type Location Start [facility] Surgery [facility] Surgical Services 12/13/2022 10:00 AM 12/13/2022 [...] Tablets By Mouth every day. Comment: Normal [facility] Outpatient Surgery Discharge Instructionon 12-08-2022 Outpatient Surgery Discharge Instruction [facility] [address] [place], [place] [address] Patient Discharge Instructions PERSON INFORMATION Name: CECI BURROWS Date of : 1955 Current Date: 12/08/2022 15:42:00 PHYSICIANS Admitting Physician: Gwyn Garcia DO Discharge Diagnosis: Localized osteoarthritis of left knee CECI BURROWS has been given the following list of [...] EMERGENCY ROOM OR CALL 911 I, CECI BURROWS, have received the attached patient education materials/instructions and have verbalized understanding: May we do a follow up call? Yes No I was present when discharge instructions were given Patient Signature Date Clinican/Nurse Signature ___ Date Follow up: With: Address: When: Gwyn Garcia [address] [place], [place] [phone] Business (1) Comments: Keep scheduled appointment Type Location Start [facility] Surgery [facility] Surgical Services 12/13/2022 10:00 AM 12/13/2022 [...] to serve you. Thank you for choosing [facility] HERE ARE THE MEDICATION CHANGES THAT [...] Mouth every day. PATIENT EDUCATION INFORMATION Instructions: [place], [place] [facility] DISCHARGE INSTRUCTIONS TOTAL KNEE [...] or eran (more content not included)... Normal [facility] Outside Labson 04-11-2023 Outside Labs [id number]#1. 00CD:127 Normal [facility] Consent for Procedure/Surger yon 12-06-2022 Consent for Procedure/Surgery [id number]#1. 00CD:127 Normal [facility] Progress Note-Physicianon Progress Note-Physician Patient: CECI BURROWS Age: 67 years Sex: Female : 1955 [...] BID, # 20 cap(s), Refills(s) 0, Pharmacy: [facility]/pharmacy #6177, 160, cm, 08/09/22 5:49:00 EST, Height/Length Dosing, 114.3, kg, 08/09/22 5:49:00 EST, Weight Dosing Keflex 500 mg Cap: 500 mg = 1 cap(s), Oral, QID, Start the day after knee replacement surgery, X 5 day(s), # 20 cap(s), Refills(s) 0, Pharmacy: [facility]/pharmacy #6177, 160, cm, 08/09/22 5:49:00 EST, Height/Length Dosing, 114.3, kg, 08/09/22 5:49:00 EST, Weight Dosing Percocet 5 mg-325 mg oral tablet: See Instructions, 50 tab(s), Refill(s) 0, take one to two every 4 hours as needed for knee replacement pain, [facility]/pharmacy #6177, 160, cm, 08/09/22 5:49:00 EST, Height/Length Dosing, 114.3, kg, 08/09/22 5:49:00 EST, Weight Dosing aspirin 325 mg Tab: 325 mg = 1 tab(s), Oral, Daily, Start the day after knee replacement surgery, X 30 day(s), # 30 tab(s), Refills(s) 0, Pharmacy: [facility]/pharmacy #6177, 160, cm, 08/09/22 5:49:00 EST, Height/Length [...] list: All Problems Hypothyroid / SNOMED CT 92011189 / Confirmed Knee osteoarthritis / SNOMED CT 744858735 / Confirmed Resolved: History of breast cancer / SNOMED CT 0759997100 Histories Past Medical History: No active or resolved past medical history items have been selected or recorded. Family History: (more content not included)... Normal [facility] Comment on above: Result Comment: Elec tronically Signed By: Michoacano Ambrocio Jr, DO\.br\Date and Time Signed: 09/05/22 13:16 EST Progress Note-Physician Patient: CECI BURROWS Age: 67 years Sex: Female : 1955 Associated Diagnoses: None Author: Michoacano Ambrocio Jr, DO Postoperative Information Post Operative Note: Post Anesthesia Care Unit. Anesthetic utilized: General. Health Status Allergies: Allergic Reactions (Selected) No Known Medication Allergies Problem list: All Problems Hypothyroid / SNOMED CT 56987132 / Confirmed Knee osteoarthritis / SNOMED CT 151019316 / Confirmed Resolved: History of breast cancer / SNOMED CT 9969210810 Physical Examination Vital Signs 08/30/2022 14:00 EST [...] EST Ap (more content not included)... Normal [facility] Comment on above: Result Comment: Elec tronically Signed By: Michoacano Ambrocio Jr, DO\.br\Date and Time Signed: 09/05/22 13:15 EST Coding Summary.on 09-02-2022 Coding Summary. CD:[id number] Gh 0bWw+PGhlYWQ+FI7UEQDrO 61lvSTxcO1YT0xZCF7RKKL CQSGFNV2TAE1eiQV0RZjlV 2VybiAv DjhzdYEsBI78LCz1TCU5iF siOWgfgF0axSJtT6y8QzKo EP99qI93KEnjJBUoTyH4Cm ZpbjsgbWFy Y9zwPzGxzFJeUvw+PHRhYm xlIHdpZHRoPScxMDAlJyBz oMgcBO5uZo8sAGClTAWgfU xhcHNlOiBj k8lmVHGbCVbqPQ1xlXrvD8 XcbKN0WCCle9n8Rm52fCK+ CFCiDRD8mEntERcfo425Hc Ypg3xgCJD8 lLEeKEkrFCI1O26hy1M2YG WpRFYkJCZ2tRC9tQ3bkKzg ehspY2InnSNnAcK8OJF3nB LgsA8wkJhg zrrpoN8iHjf+W69TPD3JRN RWGW8CRae5G8ByZrvzxMO+ TP40NWEqSM93sLQeiTMyq1 eqoGn6ZoOu JWUgDXV3sDfuCQsex2OlFF QuK54qgJFsb6V1PLForVlq sUOnUgZbfIU4lN0wJEwgub lnh0blilqq Favyh4wlff64nY38H77cVU dqCZWpIZQ2IXSqSWLxgGmn lr2icZ0mVi7+UBabw9prn9 vfdIa2JeFv OWWgdsEabQzpECZ6h9LxWl 10H1WasGlkr8WxHks0ze16 bYJxn7T6wGY0YKdbZTVpfT 8cSDaeXzP9 KCWdXpMksX06wXNiLUasBv 2jaJbwzZqtAZ5cCGPqsoqj EBSjpQ8iTZPwwQRdfJnzTT 4wNTBpbjtm n320NnRfXJA6FEKotXDpD1 VaiW9tHkAdPDSgMRXoU6Jy hQEyEWolC480LEneLiR3TG QwxyHlB4Xb LKIbiAvwRhB8s0W4Jh7Os0 MvgzifBTD4XRyrTOLzStQ7 XdSrOkV8M3KcOqd2CYKafC piTJ6oI5Vv XZKwqlryyhqdiWX3CXBoJK VwtC71eMCpBErrRe1ra1Q7 s542SMAqJEXeiH87Er0gtK ogMTBwdCBU pI7rzrxhg3nisvkoWfGyFX KmHHp8NYn7EJQakEnbPwXl THG8UkR6CKF7lWUucN3siU mlmlvdaC2z Oyc+O71rrT0iWOU2KRZ0cq phUZCqwpDfTK76MB77W7Po PjwvdGFibGU+PGRpdiBzdH mqUO4dUoJs e2kft9YoYLexB9EmXXLtPX coFqc9FUXvUGN5qKB2nF0q OJLgOWsad3T4mNA0H9Enom Orfs5xk4lj SUWrLHayT36veDDqc2I4PF TjyBU5QUSnaAhwTaUbrL99 Oyc+QOAvlVcks3TaLjdmi8 baw7flrZn5 XiGcFCWxubFczDhnEVW8m8 IsCc46F15kKGmwYYIlVNIm HQVxCSSshDjkcf6pvN4kSc 8+PGNvbCB3 tXW5sS9uYALiMuB0IAqhT4 95JpOmcRTwRtoks5qeo3tp tHi1IxWaUVDsatLbcOtgOS A2c1AoYl70 A27uCRwrGSKeYZZmWUAnUL IdbZkfaj3exL1rEb2+PC9j i6tsrt71uP70dIB+PHRkIH L4xZyiCCjt JYLmvW7wMBhjNnO1NKPfCn YjuF03gIHqMJgdWf3ssHln dIljCN5yIOWtkelkf816Rg Bim3ioLDZh bENxDWkxHUA5Z68ps4S0ZV YoNRPoAEE5gTB1rT7ypHqk bjogbGVmdDsgdmVydGljYW rlBVruJ569 IHRvcDsnPlBhdGllbnQgTm LrSQr5K1NaFfv7ZEFkfZgd RQ2dcZEaEAzpHu0ixUseyG lrHQ2kEIDk cdwum732MyJyq6fqGMHstX ZtJHonXAS7F93ir1S6TBFj ARVrBAC6hYH3wR1nrVhpyi ogbGVmdDsg mvSmkLaiNGljTOzaR105CN RvcDsnPkJpcnRoIERhdGU6 FC21HN43aVUfi5S2yGF8G0 BhZGRpbmct ayxtyRR3LTIbEMMpqZ03Ei 3jsQdxIa3rJGWwZEC5IUOz uXBlX6DlhS1xUgStNXArDI KjP8TuxXEt NMwzN906OZjqAuL0OCTtfl WlP2NiUMQwvKvbEiT6y3X6 Hv5MY3N2FC69YG49zMYwr4 A3fNA0K3Sz HDOpclgpxdcgcFM6UBJjLT TznL83Jx7fdYfyYo7tLKHw FUZ5CTDtvJLeQ4QprM9qLn AjMDAwMDAw F9UrmKFsDAdiK881SZxbFx E6EPAetqXyF2NuBGSekQbn YgZ6r6Q6Cs6WEFz5WV47DB 93xDXuh1P0 kIR7S8ToGFHrwsachxaqiV X1OBPzZTElmJ00Oq6xxWlb Sa3lMYVvPUE8LDFvlJNdW4 SsuO9cDgOx QQMjETZyX9LwrTBpSMgoX9 71JAvpLgS4OHNcnaDwU2Is OGUfnTkyQpM1p3J0Qs0JFO DcJH14JJO9 vKC5WB12PU97P3LwTghcmI FibGU+PHRhYmxlIHdpZHRo ZYpkHTEfTcQvcOmdVR1zCm 9yZGVyLWNv hJfcqNThGjQvh9twAEKuSQ lrNZ1xyGymA3XvxGS1IQTx c7z2Uf40E20lN0YrpOH+PG VvcUT9lJN8 tY1wNtVkGcA8NQxzD558Xk WlwNRrEkgvg2jxr6kzrZc9 OmN2UJUpxnOadJyyNIT5v3 MpWy29K61v IHdpZHRoPSIxNSUiIHZhbG jkwa9giA9cWs5+PGNvbCB3 dIG2oF3hWeTdKgO4QDcmK4 49InRvcCIv Wokii6ugw4aibHg0OtZrBM VbtnXqzEkcEUK2r5SoAv92 U4KmpTpsk7XcKyh9fj99eC Gmx0U7rQH9 K2UnJWIigubpfKDawOoeHQ 3aCBWvyizmCHPobX7zKWNn S2t3EuMsCfS5TKgeM1Hxbd T5YCUlbQBg VRsvLLC3D99lh7V4NHMsGH DwMKR4aDP5wR0ekEtjkupk bGVmdDsgdmVydGljYWwtYW mhA812XSJz rHtkMVPhuB2dRNOisSAbdM bxDA0zBXDlaskyOuGDQCNC NDQZPOScDGVWY5TVFP66VA 54vHDhh3S6 aAE3C8LrNHTusakxgaphvU Z8VQEsTUHqaD56jAHmLCuj Xv5qh5D5d762LWFwLDLnuL 43Dm2dsTmc GVDvuKIOoS2wksask7thwx nqNlAqLLVxJTd9QAe7RHHi pXtzEhEwHHF4OuQ4MGJ6dK ZqeB4ncKpw ucmatC2bUqg+MDYvMDUvMT q5BEmmjSP+ISKvLTR4rOcq LBinJUHsvF9bVZHlE9t3Ev MmNlV7TKkx W1IpFYKvikyiGe13eP5sXm HqXeW4LNciC1BvtfO9SZFd sQGbUOpdZLJ0B98lq8E1EN MwMDAwMDA7 jJG8fL1ekYyokprziLIgrH ruisVhxUevPXsmPCfwC663 YIFjxRgxYnC0YOdtLSEoIJ 18EZ32xFMm e1K5yDK3X9RjXJOacxkqjd zrdPN8THTfMHKpdT35yTPa EOvoZa6bp4C6o507XWDbKX JojG85Ry3c dDufTCVcmSPDmV5jrapvx5 lnpdldSzAgDDIyUJp4LNb7 VGJdlKqpDhCeQQN3AdX3RJ B9lHTwyB5h oFyslkkqeD8oEhr+RmVtYW dsZD30DG98pWChp7Z2qKX2 Q8YhECIhpxljnnhwzWY6IH JyAHAwrN84 dDWwVPsdHq6tr3C1i938ME LiPDKapA14Fv4noNnoOTVj yKOJgD7tylwxm2jrggxkXb AwMDAwMDt0 OJu8ENSnhHdyXgCzYBF3Hf R1XNJ4iWBfkA6swWtlejzy cL6uCzb+RG0zBDCmFH48WX 24PZ42S6Qk PjwvdGFibGU+PHRhYmxlIH dpZHRoPScxMDAlJyBzdHls QA4lMl6fJHWeIMSotIcwfF WdHsXfi8lr JCGcDIzvMD5upUrpQ8RmgI F2CFHaa2q9Gv28R89aX1Xm dXA+RRRilAG4xOR4aU3gZw DdRtK5RAvh C224FwGufNSdCkwjk2apv1 huwKk4IkMdDKKyeuTmsRgh SDS8r2BrUw30Z63pEQhlCB RoPSIyMCUi XYFnyTyexm2ddE2aEe7+PG ZhbMH2dHF7tL2sIgXiRwP0 NDrzO396SoEdxUDvZeobD2 6pT6MbaLV+ VSFvQrr8JLYwkIomCK5zwX WaNVaqCx4oAXF2ZzQtVeDs QApyP3MtHRVimzzydcqvkC E0JJOcNPFb uX13Pk8kfDfrAp3yMAAnQV Z1BQBfxBBjF6AimM3lEdPp JJXoPPObS1FqeCKmSYdeC2 61FSucXwC5 ZSWlteZdP0TuORPquJhcUg Y8l0H3Dn9XsVcxaLZoWC1t IjHdBFg4R1AsUux0BCOckC ddRT8pgTWc HFrwHg3vvHjidEjvLC6iVF Himhrgb893HgKbt9jaGJEy pKZtFOrmCCP9L46mw8N7EL MwMDAwMDA7 iNC8wM8xtBzxeeaqlHQjkR jvvuIexTrdEZqyGRicT069 TIIbjLqyDpLNYwi7M5ElNd q2HVPtiSob GP5peMRgFPaiEc8koNgwsW fiDZ7dPATjmopnp363CqZb b7gtQKRrvSVgICalLDB4A1 0bt5Q5HNZo PWBdFDN7nVO0vH9psKjpex ogbGVmdDsgdmVydGljYWwt TJjaG381OFWqwGbtWk6VMt f0M1KzVta8 BZYmhPheTO4uxHYgQUzaUb 5deLcapTscER8zRQCinjpz b478FxFxj1ynEEGwrMPbDA uiUCX0U43c b5I5XAQdGGVtPES0lER8iJ 1hbGlnbjogbGVmdDsgdmVy lWeaOAlnAUsjQ315NFOifX snPlBheWVy OjwvdGQ+TL59wj20U4NyPk woRef1ONWrUAC0wLS5nG5h TEGgXTnyi3Y9aAO9U9Qwpx Aucs2bu7rc YXBz (more content not included)... Normal [facility] IntraOperative Documentson 0 09-02-2022 IntraOperative Documents [id number]#1.0 0CD:127 Normal [facility] IntraOperative Documentson 0 09-01-2022 IntraOperative Documents [id number]#1. 00CD:127 Normal [facility] Auto Diffon 08-31-2022 Basophils/100 WBC (Bld) 0.2 % Normal 0.0-2.0 [facility] Comment on above: Order Comment: Order Added by Discern Expert. Performed By: #### 2 055968, 6840750, 69315585, 2181971, 2795826, 4313009 #### [facility] Laboratory [address] [place] [address] Basophils/Leukocyte s Auto (Bld) [Pure # fraction] 0.0 E9/L Normal 0.0-0.2 [facility] Comment on above: Order Comment: Order Added by Discern Expert. Performed By: #### 2 854415, 0052179, 08906547, 9649201, 8976135, 4028210 #### [facility] Laboratory [address] [place] [address] Eosinophils/100 WBC (Bld) 0.1 % Normal 0.0-8.0 [facility] Comment on above: Order Comment: Order Added by Discern Expert. Performed By: #### 2 748054, 7551732, 75994364, 1915054, 1284494, 4243124 #### [facility] Laboratory [address] [place] [address] Eosinophils/Leukocy julia Auto (Bld) [Pure # fraction] 0.0 E9/L Normal 0.0-0.5 [facility] Comment on above: Order Comment: Order Added by Honey Expert. Performed By: #### 2 570865, 6585189, 05471780, 2418286, 1644981, 5892948 #### [facility] Laboratory [address] [place] [address] Lymphocytes/100 WBC (Bld) 10.8 % Low 14.0-50.0 [facility] Comment on above: Order Comment: Order Added by Discern Expert. Performed By: #### 2 450931, 0358283, 40895322, 9084830, 4215404, 2659192 #### [facility] Laboratory [address] [place] [address] Lymphocytes/Leukocy julia Auto (Bld) [Pure # fraction] 1.0 E9/L Normal 1.0-4.0 [facility] Comment on above: Order Comment: Order Added by Honey Expert. Performed By: #### 2 949933, 1638703, 74406142, 6082840, 8831318, 2765085 #### [facility] Laboratory [address] [place] [address] Monocytes/100 WBC (Bld) 8.1 % Normal 4.0-14.0 [facility] Comment on above: Order Comment: Order Added by Honey Expert. Performed By: #### 2 736892, 5890987, 58265635, 3109251, 5342380, 9050373 #### [facility] Laboratory [address] [place] [address] Monocytes/Leukocyte s Auto (Bld) [Pure # fraction] 0.8 E9/L Normal 0.2-1.0 [facility] Comment on above: Order Comment: Order Added by Honey Expert. Performed By: #### 2 277621, 2840680, 07943303, 0925863, 0854841, 4273219 #### [facility] Laboratory [address] [place] [address] Neutrophils/100 WBC (Bld) 80.8 % High 36.0-75.0 [facility] Comment on above: Order Comment: Order Added by Discern Expert. Performed By: #### 2 360417, 7485061, 55171962, 8465188, 1192545, 5568191 #### [facility] Laboratory [address] [place] [address] Neutrophils/Leukocy julia Auto (Bld) [Pure # fraction] 7.8 E9/L High 2.0-7.5 [facility] Comment on above: Order Comment: Order Added by Discern Expert. Performed By: #### 2 983049, 0116800, 84306501, 9876425, 6013037, 7303980 #### [facility] Laboratory [address] [place] [address] BUNon 08-31-2022 Urea nitrogen [Mass/Vol] 15 mg/dL Normal 5-21 [facility] Comment on above: Performed By: #### 2 023699, 1176148, 7912435, 6677395, 89331114, 6758627 ####[facility] [address] [place] [address] Blood Bank Slipon 08-31-2022 Blood Bank Slip [id number]#1. 00CD:127 Normal [facility] CBC w/ Auto Diffon Erythrocyte distribution width (RBC) [Ratio] 13.9 % Normal 10.9-14.2 [facility] Comment on above: Performed By: #### 2 275333, 8463698, 1099178, 2521341, 71755024, 9118116 ####[facility] [address] [place] [address] Hematocrit (Bld) [Volume fraction] 41.7 % Normal 34.0-46.0 [facility] Comment on above: Performed By: #### 2 471582, 8156319, 8094143, 3559801, 45515389, 9626877 ####[facility] [address] [place] [address] Hemoglobin (Bld) [Mass/Vol] 14.0 g/dL Normal 12.0-16.0 [facility] Comment on above: Performed By: #### 2 066035, 5642316, 3410938, 6037998, 93343916, 4486979 ####[facility] [address] [place] [address] MCH (RBC) [Entitic mass] 29.7 pg Normal 27.0-34.0 [facility] Comment on above: Performed By: #### 2 534562, 7830364, 1879756, 2470798, 10758474, 6417016 ####[facility] [address] [place] [address] MCHC (RBC) [Mass/Vol] 33.7 g/dL Normal 31.4-36.0 [facility] Comment on above: Performed By: #### 2 876023, 2466423, 0245087, 1890525, 79792307, 6017988 ####[address] [address] MCV (RBC) [Entitic vol] 88.2 fL Normal 80.0-100.0 [facility] Comment on above: Performed By: #### 2 876887, 4826366, 1255253, 9463396, 15414010, 0425264 ####[address] [address] Platelet mean volume (Bld) [Entitic vol] 7.9 fL Normal 6.4-10.8 [facility] Comment on above: Performed By: #### 2 778241, 7423377, 6211298, 7044072, 68015997, 3583439 ####[facility] [address] [place] [address] Platelets (Bld) [#/Vol] 240.0 E9/L Normal 150.0-500.0 [facility] Comment on above: Performed By: #### 2 743570, 8624762, 4119859, 8590718, 49931338, 6068782 ####[place] [address] RBC (Bld) [#/Vol] 4.7 E12/L Normal 4.3-5.9 [facility] Comment on above: Performed By: #### 2 015816, 6376287, 3444231, 2336470, 69843252, 9170995 ####[facility] [address] [place] [address] WBC corrected for nucl RBC Auto (Bld) [#/Vol] 9.7 E9/L Normal 4.0-11.0 [facility] Comment on above: Performed By: #### 2 162843, 0468262, 6029749, 4358929, 56059856, 3023141 ####[facility] [address] [place] [address] CHEMISTRYOrdered By: SYSTEM SYSTEM on 08-31-2022 Anion gap [Moles/Vol] 11 mmol/L Normal 6 - 16 mEq/L FT Remisol Chloride [Moles/Vol] 101 mmol/L Normal 101 - 111 mmol/L FT Remisol CO2 [Moles/Vol] 26 mmol/L Normal 21 - 31 mmol/L FT Remisol Creatinine [Mass/Vol] 0.8 mg/dL Normal 0.5 - 1.3 mg/dL FT Remisol GFR/1.73 sq M.predicted among blacks MDRD (S/P/Bld) [Vol rate/Area] mL/min/1.73 m2 Normal >=59mL/min/1.73 m2 FT Chem S GFR/1.73 sq M.predicted among non-blacks MDRD (S/P/Bld) [Vol rate/Area] mL/min/1.73 m2 Normal >=59mL/min/1.73 m2 [facility] Chem S Potassium [Moles/Vol] 4.2 mmol/L Normal 3.5 - 5.3 mmol/L [facility] Remisol Sodium [Moles/Vol] 134 mmol/L Low 135 - 145 mmol/L FT Remisol Urea nitrogen [Mass/Vol] 15 mg/dL Normal 5 - 21 mg/dL FT Remisol Consent for Anesthesiaon Consent for Anesthesia [id number]#1.0 0CD:127 Normal [facility] Creatinineon 08-31-2022 Creatinine [Mass/Vol] 0.8 mg/dL Normal 0.5-1.3 [facility] Comment on above: Performed By: #### 2 352824, 0361243, 9502123, 2833338, 05753678, 8337348 ####[facility] [address] [place] [address] Discharge Instructionson Discharge Instructions [id number]#1 .00CD:127 Normal [facility] Discharge Note-Nursingon Discharge Note-Nursing CECI BURROWS :1955 Visit Date:08/30/2022 Inpatient Discharge Instructions Your Care Team Admitting Physician - Gwyn Garcia DO Referring Physician - Gwyn Garcia DO Reason for Your Visit M17.11 Your Diagnosis [...] AM EST Comments: Keep scheduled appointment Where: [address] [place] [phone]- Business (1) Follow Up with CAMILLE WILLIAMSON When: 09/03/2022 09:00 AM EST Where: [address] [place] [address] Business (1) Medications What How Much When Why Instructions Next Dose Unchanged acetaminophen-oxycodon e (Percocet 5 mg-325 mg oral tablet) See instructions Localized osteoarthritis of right knee take one to two every 4 hours as needed for knee replacement pain Pickup at [facility]/pharmacy #6177 NEEDED FOR PAIN, AFTER 10 AM Unchanged aspirin (aspirin 325 mg Tab) 1 Tablets By Mouth Every day Duration: 30 Days Start the day after knee replacement surgery Pickup at [facility]/pharmacy #6177 09/01 @ 9 AM Unchanged cephalexin (Keflex 500 mg Cap) 1 Capsules By Mouth 4 times a day Duration: 5 Days Start the day after knee replacement surgery Pickup at [facility]/pharmacy #6177 08/31 @ 12 PM Unchanged docusate (Colace 100 mg Cap) 1 Capsules By Mouth 2 times a day Pickup at [facility]/pharmacy #6177 08/31 @ 9 PM Unchanged levothyroxine (levothyroxine 137 mcg (0.137 mg) Tab) 1 Tablets By Mouth Every day 09/01 @ 9 AM Unchanged metoprolol (metoprolol 25 mg ER Tab) 1 Tablets By Mouth Every day 09/01 @ 9 AM Pharmacy Information [facility]/pharmacy #6177: [address], [place] [id number] [phone] Test Results CBC BMP WBC: 9.7 E9/L [...] HIGH [[id number]] (2), 08/30/2022, Unknown - RODDY: {01}[id number]{10} [id number]{17}[id number] [employer] [place], [place] [facility] DISCHARGE INSTRUCTIONS TOTAL KNEE ARTHROPLASTY INCISION CARE: Mepilex dressing can get wet with showers. Please remove 10 days after surgery per instruction sheet. If poly present, please coordinate removal 21 days after surgery with office staff. Please notify the office if any increase i (more content not included)... Normal [facility] HEMATOLOGYOrdered By: SYSTEM SYSTEM on 08-31-2022 Basophils/100 [...] 88.2 fL Normal 80.0 - 100.0 fL [facility] HemeAutoSS Platelet mean volume (Bld) [Entitic vol] 7.9 fL Normal 6.4 - 10.8 fL [facility] HemeAutoSS Platelets (Bld) [#/Vol] 240.0 E9/L Normal 150.0 - 500.0 E9/L [facility] HemeAutoSS RBC (Bld) [#/Vol] 4.7 E12/L Normal 4.3 - 5.9 E12/L [facility] HemeAutoSS WBC corrected for nucl RBC Auto (Bld) [#/Vol] 9.7 E9/L Normal 4.0 - 11.0 E9/L [facility] HemeAutoSS Interdisciplinary Note - Karsten e Manageron 08-31-2022 Interdisciplinary Note - Appliance Tester CRM to room to discuss DC planning. Patient is awake, alert and oriented. She has no family in room. She is from home, lives with Son. Has family transportation at [place]. Patient verified home DME, insurance and PCP. [...] that patient getting dizzy, difficulty ambulating to [facility]. Message was sent to Tammy Menidola to inform her and to ask about DC planning. If patient should stay another day or change DC plan, awaiting to hear back Per primary Nurse Dr Bojorquez called and patient will DC home today She was requesting to stay over night Normal [facility] Comment on above: Result Comment: [...] OT needs. DC inpatient OT services. Normal [facility] IntraOperative Documentson 0 08-31-2022 IntraOperative Documents [id number]#1.0 0CD:127 Normal [facility] Lyteson 08-31-2022 Anion gap [Moles/Vol] 11 mmol/L Normal 6-16 [facility] Comment on above: Performed By: #### 2 728529, 0510776, 4901508, 2130148, 20279964, 7467434 ####[facility] [address] [place] [address] Chloride [Moles/Vol] 101 mmol/L Normal 101-111 [facility] Comment on above: Performed By: #### 2 828389, 9340800, 0128949, 2760555, 65151743, 4342966 ####[facility] [address] [place] [address] CO2 [Moles/Vol] 26 mmol/L Normal 21-31 [facility] Comment on above: Performed By: #### 2 915031, 8225893, 5241940, 9244425, 94427900, 2951987 ####[facility] [address] [place] [address] Potassium [Moles/Vol] 4.2 mmol/L Normal 3.5-5.3 [facility] Comment on above: Performed By: #### 2 948174, 7509014, 0051183, 7885970, 38002718, 6016911 ####[facility] [address] [place] [address] Sodium [Moles/Vol] 134 mmol/L Low 135-145 [facility] Comment on above: Performed By: #### 2 922627, 7147930, 8237463, 3931227, 37456371, 7815107 ####[facility] [address] [place] [place] [address] Operative Reporton Operative Report SURGERY DATE: 08/30/2022 [...] is indicated. Family members are present from [place] to assist with her care perioperatively. Request [...] performed. This was sized at a #5 DePuy Attune. Anterior posterior chamfer cuts as well [...] tissues. Pulsed lavage irrigation was performed. The [place] Simplex cement was mixed. All components were cemented in place and allowed to harden for 16 minutes. All cement osteophytes were removed. It was taken through arc of motion and deemed stable. 2 grams of Tranexamic acid is placed subfascially. Fascial layer is closed with #2 Quill suture in a running fashion. 2-0 Quill suture closed the subcutaneous tissues. [place] were applied with her thin skin as well as increased BMI. Mepilex dressing with soft roll wrap was provided. Tourniquet was deflated. The patient awakened from anesthesia and transferred to the Recovery Room in stable and satisfactory condition. CASE: Clean and elective SPONGE AND NEEDLE COUNT: Correct SPECIMEN: Bone PATIENT CONDITION: Satisfactory Wesley Conte Dictated: 08/30/2022 [id number] Transcribed: 08/31/2022 cc:Camille Williamson M.D. [facility] Comment on above: Result Comment: Elec tronically [...] the proposed procedure. 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 It is therefore advised not to drive until after your first office visit following surgery FOLLOW-UP OFFICE VISIT: __ Gwyn Garcia, DO [facility] [address] [place] [address] Reviewed: 4-08 [facility] Preoperative Documentson Preoperative Documents [id number]#1.0 0CD:127 Normal [facility] Progress Note-Physicianon Progress Note-Physician Patient: CECI BURROWS Age: 67 years Sex: Female : 1955 Associated Diagnoses: None Author: Gwyn Garcia DO Chief Complaint Total Knee Arthroplasty POD #1 Review of Systems Constitutional: No fever, No chills. Respiratory: No shortness of breath. Cardiovascular: No chest pain. Psychiatric: Negative. Health Status Allergies: Allergic Reactions (All) No Known Medication Allergies Problem list: All Problems Knee osteoarthritis / SNOMED CT 884693243 / Confirmed Hypothyroid / SNOMED CT 87453335 / Confirmed Physical Examination Gastrointestinal: Soft, Non-tender. [...] out tomorrow. F/U in 4 weeks.. Normal [facility] Comment on above: Result Comment: Elec tronically Signed By: Gwyn Garcia DO\.br\Date and Time Signed: 08/31/22 07:22 EST eGFRon 08-31-2022 GFR/1.73 sq M.predicted among blacks MDRD (S/P/Bld) [Vol rate/Area] mL/min/{1.73_m2} Normal >=59 [facility] Comment on above: Order Comment: Order added by Discern Expert. Result Comment: eGFR is race adjusted. AA=. Performed By: #### 2 129636, 3485415, 2107110, 6774608, 28531839, 2592621 ####[facility] [address] [place] [address] GFR/1.73 sq M.predicted among non-blacks MDRD (S/P/Bld) [Vol rate/Area] mL/min/{1.73_m2} Normal >=59 [facility] Comment on above: Order Comment: Order added by Discern Expert. Result Comment: [employer] taylor kidney disease could be indicated at eGFR's of less than 60 mL/min/1.73m2. Kidney failure is indicated at less than 15 mL/min/1.73m2. Performed By: #### 2 248721, 1324624, 2210682, 3370288, 20623318, 6419679 ####[facility] [address] [place] [address] ABO/Rhon 08-30-2022 ABO/Rh Positive Invalid Interpretation Code [facility] Comment on above: Performed By: #### 2 722469, 6293473, 80493073, 7424172, 4396980, 6034067 #### [facility] Laboratory [address] [place] [address] ABO/Rh History Checkon 08-30 ABO/Rh History Check Verified Hx Blood Type Normal [facility] Comment on above: Performed By: #### 2 278008, 9135361, 42259379, 4263632, 6846643, 6185164 #### [facility] [address] [place] [address] ABSCon 08-30-2022 ABSC Gel Interp Negative Normal [facility] Comment on above: Performed By: #### 2 621560, 4951521, 57292012, 3493001, 4835163, 0341227 #### [facility] [address] [place] [address] BLOOD BANKOrdered By: Maritza Sepulveda on 08-30-2022 ABO/Rh Interp Positive Invalid Interpretation Code [facility] BB Subsection ABSC Gel Interp Negative (08/30/22 10:25 AM) Normal [facility] BB Subsection Blood Bank ID#on 08-30-2022 BBID# [id number] Invalid Interpretation Code [facility] Comment on above: Performed By: #### 2 773907, 3625290, 77488896, 8294438, 7385169, 5488393 #### [facility] Laboratory [address] [place] [address] Consent for Treatmenton Consent for Treatment [id number]#1.0 0CD:127 Normal [facility] H&P Updateon 08-30-2022 H&P Update [id number]#1. 00CD:127 Normal [facility] Main OR Intraoperative Recor don 08-30-2022 Main OR Intraoperative Record IntraOp Document Type FT Summary Primary Physician: Gwyn Garcia DO Finalized Date/Time: 09/02/22 08:03:57 Pt. Name: CECI BURROWS/Sex: 1955 Female Med Rec #: [id number] Physician: Gwyn Garcia DO Financial #: [id number] Pt. Type: I Room/Bed: [place] [address] Admit/Disch: 08/30/22 09:34:47 - 08/31/22 16:41:00 Institution: [...] 2 Entry 3 Case Attendee Param ROSENBERG, Gwyn Majano DO, RN, Linda Calderon Role Performed CAT CRACKER OPERATOR Surgeon - Primary Teacher Vocational Training - Primary Time In 08/30/22 12:15:00 08/30/22 12:15:00 08/30/22 12:15:00 Time Out 08/30/22 13:45:00 08/30/22 13:33:00 08/30/22 13:45:00 Procedure KNEE TOTAL KNEE TOTAL KNEE TOTAL ARTHROPLASTY(Right) ARTHROPLASTY(Right) ARTHROPLASTY(Right) Comments DR. AMBROCIO SUPERVISING ORIENTATION Last Modified By: Jay HYDRAULIC OPERATOR, Magui Lobato RN, Linda Lobato RN, Linda 09/02/22 08:01:36 Nuris P 08/30/22 Nuris P 08/30/22 13:45:10 13:45:10 Entry 4 Entry 5 Entry 6 Case Attendee Fabian Church RN, Tonya Bergeron CST, Heath Role Performed Teacher Vocational Training - Primary [employer] Scrub - Primary Time In 08/30/22 12:15:00 08/30/22 12:15:00 08/30/22 12:15:00 Time Out 08/30/22 13:45:00 08/30/22 13:45:00 08/30/22 13:45:00 Procedure KNEE TOTAL KNEE TOTAL KNEE TOTAL ARTHROPLASTY(Right) ARTHROPLASTY(Right) ARTHROPLASTY(Right) Comments [employer] STUDENT Last Modified By: Ranjit BAHENA, Linda Lobato RN, Linda Lobato RN, Lidna Calderon 08/30/22 Nuris P 08/30/22 Nuris P 08/30/22 13:45:10 13:45:10 13:45:10 Entry 7 Entry 8 Case Attendee Violette BAHENA, Emily Barrow Role Performed Staff - Other Staff - Other Time In 08/30/22 12:15:00 08/30/22 12:15:00 Time Out 08/30/22 13:45:00 08/30/22 13:45:00 Procedure KNEE TOTAL KNEE TOTAL ARTHROPLASTY(Right) ARTHROPLASTY(Right) Comments 2ND SCRUB 3RD SCRUB Last Modified By: Ranjit BAHENA, Linda Lobato RN, Linda Calderon 08/30/22 Nuris P 08/30/22 13:45:10 13:45:10 General Comments: TIFFANIE SAUNDERS - FOR DEPUY PRESENT FOR CASE - SHRUTI MEJIA - PRIMARY SCRUB FOR CASE - Clarence LOBATO RNremote encoding center manager Protocols FT Pre-Care Text: Implements protective measures [...] (If Applicable) PreOp Antibiotic Yes Time Out Gwyn Garcia DO, Given Participants Hossein Foster CRNA, Ferrer RN, Ranjit Pappas Terry T, Werner BAHENA, Rubio Castaneda CST, Violette Joe RN, Garth [...] - Unil (more content not included)... Normal [facility] Main OR PACU I Recordon Main OR PACU I Record PACU Phase I Document Type FT Summary Primary Physician: Gwyn Garcia DO Finalized Date/Time: 08/30/22 14:52:15 Pt. Name: CECI BURROWS /Sex: 1955 Female Med Rec #: [id number] Physician: Gwyn Garcia DO Financial #: [id number] Pt. Type: A Room/Bed: [facility] Admit/Disch: 08/30/22 09:34:47 - Institution: Case Times [...] By: Ana Gonzalez RN 08/30/22 14:52 Normal [facility] Main OR Preoperative Recordo n 08-30-2022 Main OR Preoperative Record PreOp Document Type FT Summary Primary Physician: Gwyn Garcia DO Finalized Date/Time: 08/30/22 12:47:27 Pt. Name: CECI BURROWS/Sex: 1955 Female Med Rec #: [id number] Physician: Gwyn Garcia DO Financial #: [id number] Pt. Type: A Room/Bed: [place] [address] Admit/Disch: 08/30/22 09:34:47 - Institution: Case Times [...] By: Linda Lobato RN 08/30/22 12:47 Normal [facility] Monitor Recordon 08-30-2022 Monitor Record [id number]#1. 00CD:127 Normal [facility] Monitor Record [id number]#1. 00CD:127 Normal [facility] Operative Reporton Operative Report Patient: CECI BURROWS Age: 67 years Sex: Female : 1955 [...] Room in stable and satisfactory condition.. Normal [facility] Comment on above: Result Comment: [...] Ghotra DO Transcribed by: [place] Technologist: IDALIA Normal [facility] Inpatient Patient Summaryon 08-26-2022 Inpatient Patient Summary [place] [id number] [facility] Clinical Discharge Instructions PERSON INFORMATION Name: CECI BURROWS [facility]#:[id number] PHYSICIANS Admitting Physician: Gwyn Garcia DO Attending Physician: Gwyn Garcia DO PCP: CAMILLE WILLIAMSON MD Discharge Diagnosis: Localized osteoarthritis of right knee Comment: PATIENT EDUCATION INFORMATION Instructions: Cam - Total Knee Arthroplasty (CUSTOM) Medication Leaflets: Follow up: With: Address: When: Gwyn Garcia [address] [place], [place] [address] Business (1) Comments: Keep scheduled appointment Type Location Start [facility] Surgery [facility] Surgical Services 08/30/2022 12:30 PM 08/30/2022 1:30 PM Confirmed MEDICATION LIST Medications to Continue with No Changes Other Medications diclofenac (diclofenac sodium 75 mg Oral EC Tab) 1 Tablets By Mouth every day. levothyroxine (levothyroxine 137 mcg (0.137 mg) Tab) 1 Tablets By Mouth every day. Comment: Normal [facility] Outpatient Surgery Discharge Instructionon 08-26-2022 Outpatient Surgery Discharge Instruction [facility] [address], [place] [address] Patient Discharge Instructions PERSON INFORMATION Name: CECI BURROWS Date of : 1955 Current Date: 08/26/2022 18:11:21 PHYSICIANS Admitting Physician: Gwyn Garcia DO Discharge Diagnosis: Localized osteoarthritis of right knee MARKOSMARANDAAN has been given the following list of [...] EMERGENCY ROOM OR CALL 911 I, CECI BURROWS, have received the attached patient education materials/instructions and have verbalized understanding: May we do a follow up call? Yes No I was present when discharge instructions were given Patient Signature Date Clinican/Nurse Signature ___ Date Follow up: With: Address: When: Gwyn Garcia [address] [place] [address] Business (1) Comments: Keep scheduled appointment Type Location Start [facility] Surgery [facility] Surgical Services 08/30/2022 12:30 PM 08/30/2022 [...] to serve you. Thank you for choosing [facility] HERE ARE THE MEDICATION CHANGES THAT OCCURRED DURING YOUR HOSPITAL STAY Medications to Continue with No Changes Other Medications diclofenac (diclofenac sodium 75 mg Oral EC Tab) 1 Tablets By Mouth every day. levothyroxine (levothyroxine 137 mcg (0.137 mg) Tab) 1 Tablets By Mouth every day. PATIENT EDUCATION INFORMATION Instructions: [facility] DISCHARGE INSTRUCTIONS TOTAL KNEE ARTHROPLASTY INCISION [...] in Physical Therapy (more content not included)... Normal [facility] Consent for Procedure/Surger yon 08-25-2022 Consent for Procedure/Surgery [id number]#1.0 0CD:127 Normal [facility] Immunization Recordson 08-25 Immunization Records [id number]#1.0 0CD:127 [facility] Outside Recordson 08-25-2022 Outside Records [id number]#1.0 0CD:127 [facility] Coding Summary.on 08-12-2022 Coding Summary. CD:[id number] Gh 0bWw+PGhlYWQ+SU6VBZKcY 52dmUHzsK3KK0qQPF8AODE WLDLIQG4KFY8ovMU1WZpbO 2VybiAv TcnckAUdCF91GDw9ATG9tG opJEggkZ7vsEXhK7f0FkJm XR19wW26TGcaEOEyBjG3Uz ZpbjsgbWFy X4onPzJgxOWyMfg+PHRhYm xlIHdpZHRoPScxMDAlJyBz vMuqOB5oOm3fERPpTZNurR xhcHNlOiBj u8nbKTIjNStjON3ciLucA1 WlsBU4EAIec0f6Tn09hMW+ XFJfPFF8qTtfXBtyt044Em Qxh7ycPOV0 jWBbUPvkOKL6O10om7X6SS AkNNGjUGE5rOB0qJ5zkPkf tzryD4AqkDVsOyE4WET6bD ZaeW6xcMdu dyhwmN9rWnc+N73BWK6LCM SVGF8IQuh2G0AjXbaepLC+ TA55QJVyFJ26tNOwrCQwe2 xqrIb1MeDh QQGtQLO9xOewWFjpo1TvQP IcV03qjFYns6R5ANCyvDbc xRKaPkYkuJD7hO4vDXxdfq wip9jbrlrx Fjpej9wwkn32rG66M47xNF uvPIFlCAS4QEIbKQYafHvg pn5xgB3bBg1+TPkes9jpe2 kieVe3OjVl SVWmnzDfwOajJIY1r7IbMb 73U4AkoAfnf6WyDeg8zn62 hHOcq3M6iFB2GLoqCQZvaU 0gCGmpLfN7 ILGyVqQfwN79sEItINrbSg 8woVblbPogXZ0lYGVanonl EHKkjU8bLFBgbQIanUdiWR 4wNTBpbjtm e563ObRtSVT7OVYpyTBtX9 YuyM5gGmYwECYeEEMkE2Yr kUDjUXsrJ606DXsjOmP9EJ TebaHfS8Na YOEqsYkaQgZ9c8R1Es9La1 SfupnmVQA5DNmoODSnHtC7 EmHjCnA0Y9HxQhw4KDJglO brRO7qX0Gm PJKyoqaltgphsMW0XLWzZJ ClcJ02oCJnMFebYo4iz9J6 v793LFAbDAMjgA93Gn6nkD ogMTBwdCBU vA0chitjc0lajfsxFvTjXM MuPBa9IOs8OGQceSouCfJy DCU2BdO7AVS7jDFhnT7djK eqcgtoyS7p Oyc+M42yaQ5mEVZ7FJU5rf edBMKnatMqEH93SD10B0Aj PjwvdGFibGU+PGRpdiBzdH lhVJ9yQuUk g6zsn8JdFJosZ4RlLTZnYS bkSdp0TRVtCPO5bHE6aC8d CRAlBFrgp2L4kSY9P1Epay Cwva0hc8gv ZBGrKIkxF88esOWon5S5TH UmqWF1YVKdgCbhJkEcrN19 Oyc+WTIkjGegk2GtGimez6 bwy9qqjCd7 XqWbIOGrxyCywFxtIHC0z4 NrLv72C08yXJzyYUOwSQCu MBZmFPUioDaizz3ojH6bLh 8+PGNvbCB3 wFL6qY1xPXPbNbW6EEjoJ2 71UcSobUHoPebxz8chr8sq qIi6ZiVaGLXqxzLzvNekQG N5n9WlDt73 F43bCXgmVSPdJKOvVTOyMT JlaYxyzg4lbT5bEg6+PC9j u5fjou22aM94sID+PHRkIH X3iOaxCTmx ZOUaeP9pIHiyXfX8MIBjTv QirC47qJJmRQohJg1mlDfw qMbtCS4hEIBzdaulw056Yb Qkn8kkTUGe eYKtZQulQDX9P84el2V8CZ RrDPNxBMT1zPF6vK5iyPub bjogbGVmdDsgdmVydGljYW pwVUzgL704 IHRvcDsnPlBhdGllbnQgTm SgXXk5I4GgAgh9OZMemFmh XX0boOVlMRkyMy0doNamqD vyMA2nLWAx znjuf980QzDvr6jyFIOduW ZxJGakAPB3Z56ha7M1APVy JROhYIQ1gJV3lC0zdLlnja ogbGVmdDsg bqBdtMwgHNdcALdrT960DE RvcDsnPkJpcnRoIERhdGU6 YP66HB89kGSlc3B7iDC7W9 BhZGRpbmct mznbbPU0AFSkNJOpuS55Gr 5aaXagJu5eKKLiLVD6JBXe bLItA7EbzW6gUzBeLETzHW PzC4VclPUg BXuqU440SFigNpM3YYXetp AmU3DuSKDnpXyvXmW7d2G8 Hs7JH2B0ZA15BJ32cWJkk9 Q6yKY3A6Vs FWZrhzbdhfictVO4WJMtBD IokF40Id9lfAmyYo8kHFEz QAM2XGLepHApU0YzqU3rQz AjMDAwMDAw K7QopUGwSGyhK132UGlaLo G4NWMbdeNvG6PrSNKdfFwz EzB3t5K3Ke0ITZd8GR57BL 55aEPem2I7 tEX8O2RtNFWnjwwbizzotV D9MPNsIDRflL60Xc0kgUwc Nw5uSNOuFXI9BMRkqDVkX7 EngW5kKmQl FIReZDTgR2FgrJVeACciB4 24FGlkCxD5UZDqejZrX0Kk DENsaQhfNhL5s4T2Rv6ULY XwRD96GBT6 eRJ0ZT09AV58Q4YlHvtqbH FibGU+PHRhYmxlIHdpZHRo EJojLKFkNuYsyVtgIB8hUe 9yZGVyLWNv eQapdRSfTbKfh3jjKUKnOX kvGS3duLykB8MzbGS6VWCi a5z9Na47K23hY9NwiEK+PG ElxZN9rSA5 aJ2vRuHmAvF3UEvqR683As XgtTMhHoaer5gor9oshRj2 SxO6TTAheyGpsVoaCKC1l8 RgAz10H62u IHdpZHRoPSIxNSUiIHZhbG kdwn1nhE8iAb6+PGNvbCB3 cTH7lN7jPiToIpD4UTppG4 49InRvcCIv Iiqah7iyb5rmfNg9EeDwRQ GgfrYxmUfxWNK2r1RlUu90 B5VqwZbim1QpNvg0kj31kY Pji0P6oED6 F1NmXRIeffifqKLviSusFQ 5rCXDskcbnKLWxdK6qJICq L0r7HkAyOwT2BRqbZ7Gyfe W7IDXwjYNn DHonJTB8M61ho1N9WOEpBI RvOGD0fEU8aJ3wwYgozmuc bGVmdDsgdmVydGljYWwtYW lgV617CWSi pCfxFLPiaT1kEWVorHHbfX uiCK1uXISvwcvqQtOPIVID MIFZEWAeXKEIU6LQTT44BI 22bXYki5L1 fCD6O6GsGTPclkwqbqcbgA L6LXCyQPVsrW76tTUcPZhq Lc5im2L9z093XVDxRSGkpN 98Kb5dxEol ZSMseZZUlF4dljjck4wfji tgMqDyOLCeLVm2ANu9GVVx jFvoGzFxTCR1QrA9ITQ0gG NibU5cgOyn swtndS3cGuq+MDYvMDUvMT g9AUdscVE+BPLwVPT4rEpq MQqlDSBoxU6kZJRtW0p2Ap LyXeH5GGjr V9HtVHCrtrrxWt03oR5kJe SgWsD4FBgqY5PyebU8QLNj kQMoGLefGWY4V84go5G7AT MwMDAwMDA7 wIG9lB5emBhexmmivFWatU zatwVqzPcdFDqjWPicY295 JPHsvRmoEgG7HUvxGFKvJF 51EP14aDWw u9I2tXY5V9CoWMGafhcmxf buyOT4KDOdILUvzZ91aUDp VHmlIa5pb5S6y491XXRqUF GkbX60Hg0w qLsdUBLfhDVVdT3uffnmn8 sfuivzZzWpZJBvNYg6DSx9 MTJuyTiqWwPpGIM6XaU2JN H7yROfoL7h bQulusuecK6mAek+RmVtYW gnQO07VW25uSZho9D8nWV8 Q7UeODZrlrrswabjuFI1IX PvDEEyeF79 dGUkFXkeVc0wq1U2s089QB RmPBQmnH61Yy8bbYlcNHRl bVMMkE0nnygjg4fishqrUr AwMDAwMDt0 UUi0XPQbuZcpGvJuCAN5Ei E0IEM1tLCykD8tjSukvusy pT3wTav+S0G0xLS9eGSuuE wvdGQ+PC90 gy57I7TeHuwxZgg7QZVqLV A6eDM9dU8dKHObQTmtu1I2 fAD7L5RhegHrlk1sk7oeTD BoBJtxS58s zOKdi7C0XCOxcSX7GKCwpW ckUyLllV82Dje+PGNvbGdy z4LlGrqzq8mau9qhwQm4Ev MwJSIgdmFs mZyoFFN2c0ZzKc60Y01lMP dpZHRoPSIzMCUiIHZhbGln oh6rvM7dZn9+CJDowKT9iK E4xD0qYxNw DoM7CCazZ301ZbZukZQbFn nsy6esj8jkfCl8JbJqBTJz lnLaeWhaWAQ2g2QoMq86L7 NncDoyz1Qt Ulx1gi25gNQsg3H8qXR4L3 VgKGYjgkusnDBtvQfmSF1s UTCiprtjXXMxxZ2nPDEbK9 o0UuOaReC9 SPgyJ4EyhjE9TOPjaEFiUZ CusYTGcC0fvrplq7cakwjn DrYdDVTsJHx2PZa0EGLpzQ duOiBsZWZ0 VrR8POT0gMKxxM2ajBqhbl dvvI0nYyg+CRx4t8rvqYZq YO6bdYP8XJ76ZL10vSTjo7 G8mUN1N4Kw TQNkafhymaduwCY1MTTtKY XhpH45Rf8diZesTb4aUHKd GBK0YIGzjAZxV9KnzC5oHu AjMDAwMDAw R5JkbAOxNWutZ067YVatFo P8XEMnsgZzH5DzTZYnhDkw EbB6s0H5Gn7XUM91YM62QJ 30yMLiq5X1 qMY2M1UfFQKyaycoqisakY L8VTWkRJGgrI67Lo5ezGjs Jv4jBAItOED6QKPxzTDjQ3 BicU7xXjTh HQUtLFPqG7ZfxSVoAJjnD0 71BTgjDwI8WJWtcpOuP7Nl HXSfrYgtOmZ5g6F3Qb7EWz 41GZ97HS93 kBSte7N8zNF4H1BaHQWkxh kfwbvqmSV8EZGeJDOohJ54 Hs6sfZvqZq1vWEAqDLN8TU EsgBMhR7Up sR4rYpFwEFQnOCEqS7HwjD KcVCxyT460BYtqEsN3IVAf ilBsD7VyNWGkuSojSdQ2f5 I7Po8IBIaa lso8E8XkWongsCX+PC90YW EpJR71yKZxpYRcs2fxyRm7 OoRuIFImQRB9nRebNQehc3 UcQLFdA25g bGFw (more content not included)... Normal [facility] Immunization Recordson 08-10 Immunization Records [id number]. 00CD:127 [facility] C Urineon 08-08-2022 Bacteria identified Cx Nom [...] Locations R1: This test was performed at: [facility], [address] [place] [address], [address] , , [facility] Comment on above: Performed By: #### 2 750624, 7547394, 89348789, 9306748, 6332027, 8613138 #### [facility] [address] [place] [address] ABO/Rh Retypeon 08-06-2022 ABO/Rh Retype Interp Positive Invalid Interpretation Code [facility] Comment on above: Performed By: #### 2 908252, 9038507, 93243108, 3636563, 4629289, 8305211 #### [facility] [address] [place] [address] BUNon 08-06-2022 Urea nitrogen [Mass/Vol] 15 mg/dL Normal 5-21 [facility] Comment on above: Performed By: #### 2 999092, 3570958, 22856884, 2439809, 0297790, 2405586 #### [facility] [address] [place] [address] 28934 CBC w/Indiceson 08-06-2022 Erythrocyte distribution width (RBC) [Ratio] 14.3 % High 10.9-14.2 [facility] Comment on above: Performed By: #### 2 083578, 4177150, 39574170, 1332904, 4283218, 2820553 #### [facility] [address] [place] [address] 47275 Hematocrit (Bld) [Volume fraction] 46.3 % High 34.0-46.0 [facility] Comment on above: Performed By: #### 2 631800, 3070331, 84187433, 6067219, 8904585, 5768948 #### [facility] [address] [place] [address] 84076 Hemoglobin (Bld) [Mass/Vol] 15.8 g/dL Normal 12.0-16.0 [facility] Comment on above: Performed By: #### 2 513789, 0696746, 72409581, 1150786, 7489615, 9527955 #### [facility] [address] [place] [address] 55302 MCH (RBC) [Entitic mass] 29.5 pg Normal 27.0-34.0 [facility] Comment on above: Performed By: #### 2 217824, 9312584, 47794867, 1143979, 5874405, 5610662 #### [facility] [address] [place] [address] 19816 MCHC (RBC) [Mass/Vol] 34.2 g/dL Normal 31.4-36.0 [facility] Comment on above: Performed By: #### 2 323459, 8329398, 52557590, 6959454, 7462169, 3355049 #### [facility] [address] [place] [address] 60519 MCV (RBC) [Entitic vol] 86.3 fL Normal 80.0-100.0 [facility] Comment on above: Performed By: #### 2 899075, 8424425, 43627785, 4553684, 9518133, 8707864 #### [facility] [address] [place] [address] 75108 Platelet mean volume (Bld) [Entitic vol] 7.8 fL Normal 6.4-10.8 [facility] Comment on above: Performed By: #### 2 669283, 8384138, 86930982, 7140525, 1607018, 8732315 #### [facility] [address] [place] [address] 36501 Platelets (Bld) [#/Vol] 239.0 E9/L Normal 150.0-500.0 [facility] Comment on above: Performed By: #### 2 467344, 8665303, 08180214, 3840988, 3605180, 0447095 #### [facility] [address] [place] [address] 72976 RBC (Bld) [#/Vol] 5.4 E12/L Normal 4.3-5.9 [facility] Comment on above: Performed By: #### 2 351930, 8271378, 11794603, 5581441, 2713681, 5721175 #### [facility] [address] [place] [address] 79715 WBC corrected for nucl RBC Auto (Bld) [#/Vol] 6.7 E9/L Normal 4.0-11.0 [facility] Comment on above: Performed By: #### 2 628571, 8111548, 86468107, 1311996, 7695409, 9541182 #### [facility] [address] [place] [address] Consent for Treatmenton 12-0 9-2022 Consent for Treatment [id number] 0CD:127 Normal [facility] Creatinineon 08-06-2022 Creatinine [Mass/Vol] 0.7 mg/dL Normal 0.5-1.3 [facility] Comment on above: Performed By: #### 2 901223, 7819374, 97634750, 6786908, 6483890, 2478207 #### [facility] [address] [place] [address] Glucoseon 08-06-2022 Glucose [Mass/Vol] 101 mg/dL Normal 55-199 [facility] Comment on above: Performed By: #### 2 135531, 1783639, 99751709, 6843183, 0639124, 2472859 #### [facility] [address] [place] [address] Lyteson 08-06-2022 Anion gap [Moles/Vol] 13 mmol/L Normal 6-16 [facility] Comment on above: Performed By: #### 2 894625, 6924918, 91295950, 2580969, 5683481, 4831492 #### [facility] [address] [place] [address] Chloride [Moles/Vol] 101 mmol/L Normal 101-111 [facility] Comment on above: Performed By: #### 2 150829, 5709328, 35931544, 9470724, 5800016, 4958442 #### [facility] [address] [place] [address] CO2 [Moles/Vol] 27 mmol/L Normal 21-31 [facility] Comment on above: Performed By: #### 2 677465, 5909886, 33599293, 3990025, 7276887, 9893485 #### [facility] [address] [place] [address] Potassium [Moles/Vol] 4.2 mmol/L Normal 3.5-5.3 [facility] Comment on above: Performed By: #### 2 800371, 1087017, 79625229, 5003225, 2447315, 1268182 #### [facility] [address] [place] [address] Sodium [Moles/Vol] 137 mmol/L Normal 135-145 [facility] Comment on above: Performed By: #### 2 907567, 9969715, 95618461, 8227684, 0676813, 1602206 #### [facility] [address] [place] [address] UA With Cult Reflexon 2021 Bacteria LM Ql (Urine sed) TRACE Normal Trace [facility] Comment on above: Performed By: #### 2 984531, 5586469, 59803639, 1490477, 3574532, 0192600 #### [facility] [address] [place] [address] 16291 Bilirubin Ql (U) Negative Normal Negative [facility] Comment on above: Performed By: #### 2 308213, 7978952, 31644157, 3520734, 3310742, 4261451 #### [facility] [address] [place] [address] Clarity (U) CLEAR Normal Clear [facility] Comment on above: Performed By: #### 2 358153, 3085614, 95928075, 4348898, 7113441, 9750622 #### [facility] [address] [place] [address] 47491 Color (U) YELLOW Normal Yellow [facility] Comment on above: Performed By: #### 2 914560, 7784355, 20979065, 7341862, 1520652, 5069436 #### [facility] [address] [place] [address] 28153 Epithelial cells.squamous LM.HPF (Urine sed) [#/Area] 3-4 Normal 0-2 [facility] Comment on above: Performed By: #### 2 973306, 9888715, 27260943, 5150747, 1480954, 6951086 #### [facility] [address] [place] [address] Glucose Test strip (U) [Mass/Vol] Negative Normal Negative [facility] Comment on above: Performed By: #### 2 307973, 5898676, 51973589, 2386525, 3475250, 8511944 #### [facility] [address] [place] [address] Hemoglobin Ql (U) Negative Normal Negative [facility] Comment on above: Performed By: #### 2 050031, 7561472, 57476307, 9030412, 8983949, 3327199 #### [facility] [address] [place] [address] Ketones (U) [Mass/Vol] Negative Normal Negative [facility] Comment on above: Performed By: #### 2 051121, 9783296, 20377313, 8162658, 7198469, 4643847 #### [facility] [address] [place] [address] [place].plasma/Lith ium.RBC (Bld) [Mass ratio] 0-3 Normal 0-3 [facility] Comment on above: Performed By: #### 2 147344, 3321302, 66560274, 4124994, 6953538, 4772469 #### [facility] [address] [place] [address] Mucus Ql (Urine sed) TRACE Normal [facility] Comment on above: Performed By: #### 2 222977, 0989374, 37183184, 0671098, 4774561, 1598621 #### [facility] [address] [place] [address] Nitrite Ql (U) Negative Normal Negative [facility] Comment on above: Performed By: #### 2 954187, 2428016, 25847905, 7217521, 3099544, 5296190 #### [facility] [address] [place] [address] pH (U) 7.0 [pH] Invalid Interpretation Code 5.0-9.0 [facility] Comment on above: Performed By: #### 2 583234, 7560886, 38704049, 6708884, 6583262, 6281067 #### [facility] [address] [place] [address] Protein (U) [Mass/Vol] Negative Normal Negative [facility] Comment on above: Performed By: #### 2 080353, 7376342, 99952203, 9562201, 5531662, 1411272 #### [facility] [address] [place] [address] Specific gravity (U) [Rel density] 1.015 Invalid Interpretation Code 1.005-1.030 [facility] Comment on above: Performed By: #### 2 386831, 8189292, 57089609, 4335894, 4309158, 6483317 #### [facility] [address] [place] [address] 14305 Type of Urine collection method Clean Catch Normal [facility] Comment on above: Performed By: #### 2 468296, 2868586, 74274416, 5755612, 5767351, 6580924 #### [facility] [address] [place] [address] 30849 Urobilinogen Qn (U) 0.2 {Tyson'U}/dL Normal 0.0-1.0 [facility] Comment on above: Performed By: #### 2 767411, 8059114, 68127287, 8545342, 8968829, 5094360 #### [facility] [address] [place] [address] WBC Auto Ql (U) TRACE Abnormal Negative [facility] Comment on above: Performed By: #### 2 745142, 0918768, 20280673, 4127517, 2369620, 0809157 #### [facility] [address] [place] [address] 08486 WBC LM.HPF (Urine sed) [#/Area] 6-15 Abnormal 0-5 [facility] Comment on above: Performed By: #### 2 148440, 2842021, 51739989, 8050086, 0390655, 6218490 #### [facility] [address] [place] [address] XR Chest 2 Viewson 2 XR Chest [...] (Electronic Signature): 08/06/2022 5:16 pm Signed by: Hetah Quiros MD Transcribed by: [place] Technologist: Normal [facility] eGFRon 08-06-2022 GFR/1.73 sq M.predicted among blacks MDRD (S/P/Bld) [Vol rate/Area] mL/min/{1.73_m2} Normal >=59 [facility] Comment on above: Order Comment: Order added by Discern Expert. Result Comment: eGFR is race adjusted. AA=. Performed By: #### 2 089558, 8283487, 11091791, 0215665, 1324409, 0061317 #### [facility] [address] [place] [address] GFR/1.73 sq M.predicted among non-blacks MDRD (S/P/Bld) [Vol rate/Area] mL/min/{1.73_m2} Normal >=59 [facility] Comment on above: Order Comment: Order added by Discern Expert. Result Comment: [employer] taylor kidney disease could be indicated at eGFR's of less than 60 mL/min/1.73m2. Kidney failure is indicated at less than 15 mL/min/1.73m2. Performed By: #### 2 124890, 5902031, 36543217, 3121453, 6000954, 9784264 #### [facility] [address] [place] [address] Physician Orderon 07-12-2022 Physician Order [id number]. 00CD:127 Normal [facility] CBC AUTO DIFFon 05-20-2022 BASO # 0.1 103/ul Normal 0.0-0.1 [facility] Comment on above: Performed By: #### C BC #### [facility] [address] [address] [address] Carmen Brown Basophils/100 WBC (Bld) 1.2 % Normal 0.2-2.0 [facility] Comment on above: Performed By: #### C BC #### [facility] [address] [place] [address] Dr. Carmen Brown EO # 0.2 103/ul Normal 0.0-0.7 [facility] Comment on above: Performed By: #### C BC #### [facility] [address] [place] [address] Dr. Carmen Brown Eosinophils/100 WBC (Bld) 3.9 % Normal 0.9-7.0 [facility] Comment on above: Performed By: #### C BC #### [facility] [address] [place] [address] Dr. Carmen Brown Erythrocyte distribution width (RBC) [Ratio] 13.2 % Normal 11.0-15.0 [facility] Comment on above: Performed By: #### C BC #### [facility] [address] [place] [address] Dr. Carmen Brown Hematocrit (Bld) [Volume fraction] 49.3 % Critically high 36.0-48.0 [facility] Comment on above: Performed By: #### C BC #### [facility] [address] [place] [address] Dr. Carmen Brown Hemoglobin (Bld) [Mass/Vol] 16.0 g/dL Normal 12.0-16.0 [facility] Comment on above: Performed By: #### C BC #### [facility] [address] [place] [address] Dr. Carmen Brown IG # 0.02 10e3/ul Normal 0.00-0.03 [facility] Comment on above: Performed By: #### C BC #### [facility] [address] [place] [address] Dr. Carmen Brown IG % 0.4 % Normal 0.0-0.5 [facility] Comment on above: Performed By: #### C BC #### [facility] [address] [place] [address] Dr. Carmen Brown LYMPH # 1.3 103/ul Normal 1.2-3.8 [facility] Comment on above: Performed By: #### C BC #### [facility] [address] [place] [address] Dr. Carmen Brown Lymphocytes/100 WBC (Bld) 24.6 % Normal 20.5-60.0 [facility] Comment on above: Performed By: #### C BC #### [facility] [address] [place] [address] Dr. Carmen Brown MANUAL DIFF REQ NO Normal [facility] Comment on above: Performed By: #### C BC #### [facility] [address] [place] [address] Dr. Carmen Brown MCH (RBC) [Entitic mass] 29.1 pg Normal 26.7-34.0 [facility] Comment on above: Performed By: #### C BC #### [facility] [address] [place] [address] Dr. Carmen Brown MCHC (RBC) [Mass/Vol] 32.5 g/dL Normal 29.9-35.2 [facility] Comment on above: Performed By: #### C BC #### [facility] [address] [place] [address] Dr. Carmen Brown MCV (RBC) [Entitic vol] 89.8 fL Normal 81.0-99.0 [facility] Comment on above: Performed By: #### C BC #### [facility] [address] [place] [address] Dr. Carmen Brown MONO # 0.4 103/ul Normal 0.3-0.8 [facility] Comment on above: Performed By: #### C BC #### [facility] [address] [place] [address] Dr. Carmen Brown Monocytes/100 WBC (Bld) 7.7 % Normal 1.7-12.0 [facility] Comment on above: Performed By: #### C BC #### [facility] [address] [place] [address] Dr. Carmen Brown NEUT # 3.2 103/ul Normal 1.4-6.5 [facility] Comment on above: Performed By: #### C BC #### [facility] [address] [place] [address] Dr. Carmen Brown Neutrophils/100 WBC (Bld) 62.2 % Normal 43.0-75.0 [facility] Comment on above: Performed By: #### C BC #### [facility] [address] [place] [address] Dr. Carmen Brown Platelet mean volume (Bld) [Entitic vol] 9.5 fL Normal 9.5-13.5 [facility] Comment on above: Performed By: #### C BC #### [facility] [address] [place] [address] Dr. Carmen Brown PLT 256 103/ul Normal 150-450 [facility] Comment on above: Performed By: #### C BC #### [facility] [address] [place] [address] Dr. Carmen Brown RBC 5.49 106/ul Critically high 4.20-5.[address] [facility] Comment on above: Performed By: #### C BC #### [facility] [address] [place] [address] Dr. Carmen Brown WBC 5.1 103/ul Normal 4.0-11.0 [facility] Comment on above: Performed By: #### C BC #### [facility] [address] [place] [address] Dr. Carmen Brown FREE T4on 05-20-2022 Free T4 [Mass/Vol] 1.43 ng/dL Normal 0.76-1.46 [facility] Comment on above: Performed By: #### F T4 #### [facility] [address] [place] [address] Dr. Carmen Brown GLYCOHEMOGLOBIN A1Con 2021 ADA RECOMMENDATION SEE BELOW Normal [facility] Comment on above: Result Comment: ADA RECOMMENDED LIMIT 4.0 - 6.0 ADA THERAPEUTIC TARGET < 7.0 ACTION SUGGESTED > 7.0 Performed By: #### A 1C #### [facility] [address] [place] [address] Dr. Carmen Brown Glucose [Mass/Vol] 128 mg/dL Normal [facility] Comment on above: Performed By: #### A 1C #### [facility] [address] [place] [address] Dr. Carmen Brown HbA1c (Bld) [Mass fraction] 6.1 % Normal 4.5-6.2 [facility] Comment on above: Performed By: #### A 1C #### [facility] [address] [place] [address] Dr. Carmen Brown PROF CHEM 8 (BAS METB)on Anion gap [Moles/Vol] 11.9 mmol/L Normal [facility] Comment on above: Performed By: #### T SH, BMP #### [facility] [address] [place] [address] Dr. Carmen Brown Calcium [Mass/Vol] 9.5 mg/dL Normal 8.5-10.1 [facility] Comment on above: Performed By: #### T SH, BMP #### [facility] [address] [place] [address] Dr. Carmen Brown Chloride [Moles/Vol] 105 mmol/L Normal 98-107 [facility] Comment on above: Performed By: #### T SH, BMP #### [facility] [address] [place] [address] Dr. Carmen Brown CO2 [Moles/Vol] 28.5 mmol/L Normal 21.0-32.[address] [facility] Comment on above: Performed By: #### T SH, BMP #### [facility] [address] [address] [address] Carmen Brown Creatinine [Mass/Vol] 0.78 mg/dL Normal 0.55-1.02 [facility] Comment on above: Performed By: #### T SH, BMP #### [facility] [address] [address] [address] Carmen Brown EGFR-AF YEMENI >60 Normal >=60 [facility] Comment on above: Performed By: #### T SH, BMP #### [facility] [address] [address] [address] Carmen Brown EGFR-NON AF YEMENI >60 Normal >=60 [facility] Comment on above: Performed By: #### T SH, BMP #### [facility] [address] [address] [address] Carmen Brown Glucose [Mass/Vol] 127 mg/dL Critically high 74-106 [facility] Comment on above: Performed By: #### T SH, BMP #### [facility] [address] [address] [address] Carmen Brown Potassium [Moles/Vol] 4.4 mmol/L Normal 3.5-5.1 [facility] Comment on above: Performed By: #### T SH, BMP #### [facility] [address] [address] [address] Carmen Brown Sodium [Moles/Vol] 141 mmol/L Normal 136-145 [facility] Comment on above: Performed By: #### T SH, BMP #### [facility] [address] [address] [address] Carmen Brown Urea nitrogen [Mass/Vol] 10.0 mg/dL Normal 7.0-18.0 [facility] Comment on above: Performed By: #### T SH, BMP #### [facility] [address] [address] [address] Carmen Brown Urea nitrogen/Creatinine [Mass ratio] 12.8 mg/mg Normal [facility] Comment on above: Performed By: #### T SH, BMP #### [facility] [address] [address] [address] Carmen Brown TSHon 05-20-2022 TSH 1.276 uIU/mL Normal 0.358-3.740 [facility] Comment on above: Performed By: #### T , BMP #### [facility] [address] [address] [address] Carmen Brown Vital Signs Date Time Vital Sign Value Performing Clinician Facility 2024 14:30-0400 Body height 160.02 cm [facility] 2024 14:30-0400 Body mass index (BMI) [Ratio] 40.7 kg/m2 [facility] 2024 14:30-0400 Body weight 104.32 kg [facility] 2024 14:30-0400 Diastolic blood pressure 77 mm[Hg] [facility] 2024 14:30-0400 Heart rate 75 /min [facility] 2024 14:30-0400 Systolic blood pressure 122 mm[Hg] [facility] 05-20-2023 14:30-0400 Body height 160.02 cm Camille Williamson Other [facility] Other 05-20-2023 14:30-0400 Body mass index (BMI) [Ratio] 40.38 kg/m2 Camille Williamson Other [facility] Other 05-20-2023 14:30-0400 Body weight 103.42 kg Camille Williamson Other [facility] Other 05-20-2023 14:30-0400 Diastolic blood pressure 81 mm[Hg] Camille Williamson Other [facility] Other 05-20-2023 14:30-0400 Systolic blood pressure 140 mm[Hg] Camille Williamson Other [facility] Other 04-28-2023 13:30-0400 Body height 160.02 cm Camille Williamson Other [facility] Other 04-28-2023 13:30-0400 Body mass index (BMI) [Ratio] 39.14 kg/m2 Camille Williamson Other [facility] Other 04-28-2023 13:30-0400 Body weight 100.25 kg Camille Williamson Other [facility] Other 04-28-2023 13:30-0400 Diastolic blood pressure 82 mm[Hg] Camille Williamson Other [facility] Other 04-28-2023 13:30-0400 Systolic blood pressure 130 mm[Hg] Camille Williamson Other [facility] Other 02-21-2023 14:30-0400 Body height 160.02 cm Camille Williamson Other [facility] Other 02-21-2023 14:30-0400 Body mass index (BMI) [Ratio] 41.98 kg/m2 Camille Williamson Other [facility] Other 02-21-2023 14:30-0400 Body weight 107.5 kg Camille Williamson Other [facility] Other 02-21-2023 14:30-0400 Diastolic blood pressure 82 mm[Hg] Camille Williamson Other [facility] Other 02-21-2023 14:30-0400 Systolic blood pressure 136 mm[Hg] Camille Williamson Other [facility] Other 09-16-2022 15:15-0500 Body height 160.02 cm Camille Williamson Other [facility] Other 09-16-2022 15:15-0500 Body mass index (BMI) [Ratio] 41.62 kg/m2 Camille Williamson Other [facility] Other 09-16-2022 15:15-0500 Body weight 106.6 kg Camille Williamson Other [facility] Other 09-16-2022 15:15-0500 Diastolic blood pressure 86 mm[Hg] Camille Williamson Other [facility] Other 09-16-2022 15:15-0500 SaO2% (BldA) [Mass fraction] 97 % Camille Williamson Other [facility] Other 09-16-2022 15:15-0500 Systolic blood pressure 132 mm[Hg] Camille Williamson Other [facility] Other 08-31-2022 15:54-0500 SaO2% (BldA) [Mass fraction] 98 % Gwyn Scarosso [facility] 08-31-2022 12:00-0500 Heart rate 66 /min Gywn Scarosso [facility] 08-31-2022 12:00-0500 SaO2% (BldA) [Mass fraction] 98 % Gwyn Scarosso [facility] 08-31-2022 12:00-0500 Body temperature 97.16 [degF] Gwyn Garcia [facility] 08-31-2022 12:00-0500 Diastolic blood pressure 78 mm[Hg] Gwyn Scarosso [facility] 08-31-2022 12:00-0500 Mean blood pressure 96 mm[Hg] Gwyn Scarosso [facility] 08-31-2022 12:00-0500 Systolic blood pressure 133 mm[Hg] Gwyn Garcia [facility] 08-31-2022 08:28-0500 Blood Pressure Location Gwyn Garcia [facility] 08-31-2022 08:28-0500 Body temperature 98.42 [degF] Gwyn Garcia [facility] 08-31-2022 08:28-0500 Diastolic blood pressure 55 mm[Hg] Gwyn Garcia [facility] 08-31-2022 08:28-0500 Heart rate 61 /min Gwyn Garcia [facility] 08-31-2022 08:28-0500 Hourly Rounding Gwyn Garcia [facility] 08-31-2022 08:28-0500 Mean blood pressure 64 mm[Hg] Gwyn Garcia [facility] 08-31-2022 08:28-0500 Respiratory rate 18 /min Gwyn Garcia [facility] 08-31-2022 08:28-0500 SaO2% (BldA) [Mass fraction] 98 % Gwyn Garcia [facility] 08-31-2022 08:28-0500 Systolic blood pressure 81 mm[Hg] Gwyn Cam [facility] 08-31-2022 06:14-0500 Hourly Rounding Gwyn Cam [facility] 08-31-2022 06:14-0500 Promise to Return Gwyn Cam [facility] 08-31-2022 05:18-0500 Hourly Rounding Gwyn Cam [facility] 08-31-2022 05:18-0500 Promise to Return Gwyn Cam [facility] 08-31-2022 04:01-0500 Blood Pressure Location Gwyn Cam [facility] 08-31-2022 04:01-0500 Body temperature 98.24 [degF] Gwyn Garcia [facility] 08-31-2022 04:01-0500 Diastolic blood pressure 81 mm[Hg] Gwyn Garcia [facility] 08-31-2022 04:01-0500 Heart rate 71 /min Gwyn Cam [facility] 08-31-2022 04:01-0500 Mean blood pressure 96 mm[Hg] Gwyn Garcia [facility] 08-31-2022 04:01-0500 Mean blood pressure 103 mm[Hg] Gwyn Cam [facility] 08-31-2022 04:01-0500 Respiratory rate 17 /min Gwyn Garcia [facility] 08-31-2022 04:01-0500 Systolic blood pressure 147 mm[Hg] Gwyn Cam [facility] 08-31-2022 04:00-0500 Promise to Return Gwyn Cam [facility] 08-31-2022 00:24-0500 Blood Pressure Location Gwyn Garcia [facility] 08-31-2022 00:24-0500 Body temperature 98.06 [degF] Gwyn Garcia [facility] 08-31-2022 00:24-0500 Mean blood pressure 96 mm[Hg] Gwyn Garcia [facility] 08-31-2022 00:24-0500 Mean blood pressure 105 mm[Hg] Gwyn Garcia [facility] 08-31-2022 00:24-0500 Respiratory rate 15 /min Gwyn Garcia [facility] 08-30-2022 20:04-0500 Body temperature 97.7 [degF] Gwyn Agrcia [facility] 08-30-2022 14:25-0500 Body temperature 96.98 [degF] Gwyn Scarosso [facility] 08-30-2022 14:25-0500 Respiratory rate 16 /min Gwyn Garcia [facility] 08-30-2022 14:15-0500 Respiratory rate 19 /min Gwyn Scarosso [facility] 08-30-2022 14:00-0500 Respiratory rate 18 /min Gwyn Scarosso [facility] 08-30-2022 13:46-0500 Body temperature 96.98 [degF] Gwyn Scarosso [facility] 08-30-2022 10:01-0500 Heart rate 60 /min Gwyn Scarosso [facility] 08-30-2022 09:59-0500 Body temperature 97.88 [degF] Gwyn Scarosso [facility] Encounters Encounter Date Encounter Type Care Provider Facility Start: 05-17-2024 ambulatory FRANCIS AGUAYO Not Av ailable Start: 05-15-2024 End: 05-15-2024 ambulatory FRANCIS AGUAYO Not Available Start: 05-10-2024 End: 05-10-2024 ambulatory JIN MCCONNELL Not Available Start: 05-08-2024 End: 05-08-2024 ambulatory JIN MCCONNELL Not Available Start: 05-03-2024 End: 05-03-2024 ambulatory JIN MCCONNELL Not Available Start: 05-01-2024 End: 05-01-2024 ambulatory JIN MCCONNELL Not Available Start: 04-26-2024 End: 04-26-2024 ambulatory FRANCIS AGUAYO Not Available Start: 04-24-2024 End: 04-24-2024 ambulatory FRANCIS AGUAYO Not Available Start: 04-18-2024 End: 04-18-2024 ambulatory JIN MCCONNELL Not Available Start: 04-16-2024 End: 04-16-2024 ambulatory FRANCIS AGUAYO Not Available Start: 04-13-2024 End: 04-13-2024 ambulatory FRANCIS AGUAYO Not Available Start: 04-10-2024 End: 04-10-2024 ambulatory JIN MCCONNELL Not Available Start: 03-27-2024 End: 03-27-2024 ambulatory PRINCESS LADONNA Not Available Start: 02-27-2024 End: 02-27-2024 ambulatory PRINCESS LADONNA Not Available Start: 2024 End: 2024 ambulatory [facility] Work Phone: Start: 2024 End: 2024 Patient encounter procedure [facility] Physician [facility] Work Phone: Start: 01-10-2024 Non-patient / Non-visit [facility] Physician [facility] [place] Work Phone: Start: 01-03-2024 End: 01-03-2024 ambulatory PRINCESS LADONNA Not Available Start: 12-19-2023 Non-patient / Non-visit [facility] Physician [facility] [place] Work Phone: Start: 12-07-2023 End: 12-07-2023 ambulatory GWYN GARCIA Not Available Start: 09-24-2023 End: 09-24-2023 ambulatory Camille Williamson Other [facility] Other Start: 09-24-2023 Telephone encounter Camille Williamson [facility] Start: 06-16-2023 End: 06-16-2023 ambulatory Camille Williamson Other [facility] Other Start: 06-16-2023 Telephone encounter Camille Williamson [facility] Start: 05-20-2023 End: 05-20-2023 ambulatory Camille Williamson Other [facility] Other Start: 05-20-2023 Office outpatient visit 15 minutes Camille Williamson [facility] Start: 04-29-2023 End: 04-29-2023 ambulatory Camille Clay Other [facility] Other Start: 04-29-2023 Telephone encounter Camille Williamson [facility] Start: 04-28-2023 End: 04-28-2023 ambulatory Camille Clay Other [facility] Other Start: 04-28-2023 Office outpatient visit 15 minutes Camille Clay [facility] Start: 04-25-2023 End: 04-25-2023 ambulatory Camille Williamson Other [facility] Other Start: 04-25-2023 Telephone encounter Camille Clay [facility] Start: 02-21-2023 End: 02-21-2023 ambulatory Camille Williamson Other [facility] Other Start: 02-21-2023 Office outpatient visit 15 minutes Camille Clay [facility] Start: 12-13-2022 End: 12-14-2022 Evaluation and management of inpatient Gwyn Garcia Facility:[facility] Start: 10-14-2022 End: 10-14-2022 ambulatory Camille Clay Other [facility] Other Start: 10-14-2022 Telephone encounter Camille Clay [facility] Start: 09-16-2022 End: 09-16-2022 ambulatory Camille Clay Other [facility] Other Start: 09-16-2022 Office outpatient visit 15 minutes Camille Clay [facility] Start: 09-01-2022 End: 09-01-2022 ambulatory Camille Williamson Other [facility] Other Start: 09-01-2022 Telephone encounter Camille Clay [facility] Start: 08-31-2022 End: 08-31-2022 ambulatory Camille Williamson Other [facility] Other Start: 08-31-2022 Telephone encounter Camille Williamson [facility] Start: 08-30-2022 End: 08-31-2022 Evaluation and management of inpatient Gwyn Garcia Facility:[facility] Start: 08-30-2022 End: 08-31-2022 Evaluation and management of inpatient Gwyn Garcia [facility] Start: 08-06-2022 End: 08-07-2022 ambulatory Gwyn Garcia Facility:[facility] Start: 05-20-2022 End: 05-21-[address] CAMILLE WILLIAMSON Facility:[facility]1 Procedures Date Procedure Procedure Detail Performing Clinician Start: 08-30-2022 Total knee replacement Gwyn Garcia section Gwyn flowers Cholecystectomy Gwyn greco Lumpectomy of breast Gwyn Garcia Tympanotomy Gwyn Garcia Immunizations Immunization Date Immunization Notes Care Provider Fa [facility] 06-12-2020 influenza virus vaccine, split virus (incl. purified surface antigen) Camille Williamson Other [facility] Other 06-12-2020 influenza virus vaccine, unspecified formulation [facility] Payers Date Payer Category Payer Medicare [id number] 1960 Medicare [id number] 1960 Unknown [id number] 1955 Unknown [id number] 2.16.84 0.1.423758.3.579.2.593 1954 Unknown [id number] 2.16.8 40.1.092000.3.579.2.727 1954 Unknown [id number] 2.16.8 40.1.030842.3.579.2.727 1954 Unknown [id number] 2.16.8 40.1.679778.3.579.2.727 1954 Unknown [id number] 2.16.84 0.1.727653.3.579.2.1258 1954 Unknown [id number] 2.16.84 0.1.349381.3.579.2.9 1954 Unknown [id number] 2.16.84 0.1.955465.3.579.2.1258 1954 Unknown [id number] 2.16.84 0.1.143103.3.579.2.1258 1954 Unknown [id number] 2.16.84 0.1.085252.3.579.2.1258 1954 Unknown [id number] 2.16.84 0.1.137515.3.579.2.1258 1954 Unknown [id number] 2.16.84 0.1.192004.3.579.2.1258 1954 Unknown [id number] 2.16.84 0.1.533767.3.579.2.1258 1954 Unknown [id number] 2.16.84 0.1.803274.3.579.2.1258 1954 Unknown [id number] 2.16.84 0.1.632180.3.579.2.1258 1954 Unknown [id number] 2.16.84 0.1.042289.3.579.2.1258 1954 Unknown [id number] 2.16.84 0.1.983121.3.579.2.1258 1954 Unknown [id number] 2.16.84 0.1.422889.3.579.2.1258 1954 Unknown [id number] 2.16.84 0.1.964428.3.579.2.1258 1954 Unknown [id number] 2.16.84 0.1.889279.3.579.2.1258 1954 Unknown [id number] 2.16.84 0.1.452817.3.579.2.1259 1954 Unknown [id number] 2.16.84 0.1.131870.3.579.2.1259 1954 Unknown [id number] 2.16.84 0.1.985987.3.579.2.1259 Social History Date Type Detail Facility Tobacco smoking status [facility] Sex Assigned At Female [facility] Start: 2024 Tobacco smoking stat [facility] Never smoked tobacco (finding) [facility] Start: 1955 Sex Assigned At Female F [facility] Medical Equipment Procedure Code Equipment Code Equipment Origin al Text Equipment Identifier Dates KNEE TOTAL ARTHROPLASTY Gwyn Garcia DO Johanan 08/30/22 Non Biological Knee R {[id number]{ [id number] FDA Start: 08-30-2022 Clinical Notes 08-25-2022 to 05-20-2023 Note Date & Type Note Facility 05-20-2023 Evaluation note Encounter Date Diagnosis Assessment Notes Apr, Hypercalcemia (ICD-10 - E83.52) Added PTH and faxed to [facility] lab - add onto lab drawn Apr, Hypothyroidism (acquired) (ICD-10 - E03.9) Apr, Essential hypertension (ICD-10 - I10) Apr, Other Other labs reviewed w pt - gave copies to pt and explained overall normal results. Continue present medications. [facility] Other 08-31-2023 Evaluation note* Encounter Date Diagnosis [...] continue to monitor through routine blood work [facility] Other 06-26-2023 Evaluation note* Encounter Date Diagnosis Assessment Notes Treatment Notes Treatment Clinical Notes Jan, Bilateral hearing loss, unspecified hearing loss type (ICD-10 - H91.93) Jan, Middle ear effusion, bilateral (ICD-10 - H65.93) [facility] Other 04-18-2023 NoteCRM entered the room to discuss dc planning. PCP, DME and insurance discussed. Patient is alert andinvolved in plan of care. Contact information provided and whiteboard updated. Pt will dc with [facility], she has a FWW from home. No further needs. ANt dc today.[facility]:Result Comment: Electronically Signed By: Cheri Doan.param\Date and Time Signed: 12/14/22 09:50 [id number] NotePatient: CECI BURROWS Age: 67 years Sex: Female : 1955 [...] Stable course. D/C home with [facility] rehab. Poly out POD#21. F/U in 4 weeks. [facility]:Result Comment: Electronically Signed By: Gwyn Garcia DO\.br\Date and Time Signed: 12/14/22 06:59 EDT 12-13-2022 NotePT Evaluation [facility] Pt currently requires Mod A x 2 for bed mobilityand Mod A x 2 to stand. Pt was able to take a couple steps to complete a transfer. Will follow daily to progress with recommendations to be given on POD # 1Fyamini [facility]04-10-2023 Note [id number]:127Kenneth [facility] 10-14-2022 Evaluation note* Encounter Date Diagnosis Assessment Notes Treatment Notes Treatment Clinical Notes Sep, Depression with anxiety (ICD-10 - F41.8) [facility] Other 01-19-2023 Evaluation note* Encounter Date Diagnosis Assessment Notes Treatment Notes Treatment Clinical Notes Aug, Depression with anxiety (ICD-10 - F41.8) Aug, Essential hypertension (ICD-10 - I10) continue metoprolol at this time Aug, BMI 40.0-44.9, adult (ICD-10 - Z68.41) Encouraged patient to continue to watch their diet and increase exercise regimen. [facility] Other 01-03-2023 Evaluation + Plan noteExtracted from: Title:Discharge Summary * Author:Chon Garcia DO T Date:08/31/22 Discharge Information Discharge Summary Information: Admit [...] course. reg diet. Mepilex chnage 10 days. [place] out POD#14. F/U in 4 weeks. Extracted [...] Recovery Room in stable and satisfactory condition.. [facility]01-03-2023 NotePatient: CECI BURROWS Age: 67 years Sex: Female : 1955 [...] days. Poly out POD#14. F/U in 4 weeks.[facility] Center[facility]:Result Comment: Electronically Signed By: Gwyn Garcia DO\.br\Date and Time Signed: 08/31/22 07:23 EST 08-30-2022 NotePT evaluation completed with an AM-PAC six clicks score of 06/21. Pt. requires Max A for all bed mobility and Max A for stand pivot transfer for bedside commode. Pt. unable to attempt ambulation at this time due to poor ability to complete transfers or independent standing. 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 It is therefore advised not to drive until after yourfirst office visit following surgery FOLLOW-UP OFFICE VISIT: Gwyn Garcia, DO [facility] [address] [place], [place] [address] Reviewed: 4-08 Follow Up Care 07/12/2022 08:53:18 With:Gwyn Garcia Address: [address] [place] [address]- Business (1) When:09/29/2022 09:30:00 Comments:Keep scheduled appointment With:CAMILLE WILLIAMSON Address: [address] [place] [address]- Business (1) When:09/03/2022 09:00:00 [facility]12-28-2022 Note [id number]:127[facility] Evaluation noteNo [facility] Other Evaluation noteNo assessment information available [facility] Work Phone: History general Narrative - Reported* Type Description Date [...] History TRK 08/29/2022 Hospitalization History SEE SURGICAL HX [facility] Other [facility] general Narrative - Reported* Type Description Date [...] laparascopic cholecystectomy 20 13 Surgical History TRK TLK Surgical History TLK 11/2022 Hospitalization History SEE SURGICAL HX [facility] Other Hospital course Narrative No data available for this section [facility] No data available for this section [facility] Summary Purpose Family History No Family History Records Found Relationship Condition Age at Onset Recorded Date/T john father Unknown Malignant neoplasm Unknown Advance Directives No Advanced Directives Records Found Advance Directive Response Recorded Date/ Time Advance Directives No January 09 12:21pm Reason for Referral Reason Previously seen ther e - had PE tubes - Has a hearing test scanned into chart. Diagnosis 1 Bilateral hearing lo ss, unspecified hearing loss type (H91.93) Referral Organization [facility] Referring Provider First Name Camille Referring Provider Last Name Clay Referring Provider Specialty Family [facility] cine Referred Organization [facility] Referred Provider Heath Monroy Referred Address ,[place], [place],[address] Referred Provider Specialty Otolaryngolo gy Referral Priority Routine Chief Complaint and Reason for Visit Chief Complaint Amb Documentation Ear complaints Additional Source Comments INFORMATION SOURCE (unrecogn ized section and content) DATE CREATED AUTHOR 05/30/2022 [facility] DATE CREATED AUTHOR AUTHOR'S ORGANIZ ATION 12/20/2022 [facility] DATE CREATED AUTHOR AUTHOR'S ORGANIZ ATION 05/17/2024 [facility] EPIC Patient Care team informatio [...] Provider Active Start: January 10, 2024 Princess Brown DO Attending Provider Active Sta rt: January [...] BE BASED ON THE PRIMARY CLINICAL RECORDS. [employer] [facility]. provides no warranty or guarantee of the accuracy or completeness of information in this document.
[2024-05-19 09:45] LABS: Basophils Absolute Auto 0.1 10^3/uL (0.0-0.1); Basophils Percent Auto 1.8 % (0.2-2.0); Eosinophils Absolute Auto 0.1 10^3/uL (0.0-0.7); Eosinophils Percent Auto 3.1 % (0.9-7.0); Hematocrit 47.9 % (36.0-48.0); Immature Granulocytes Abs Auto 0.01 10^3/uL (0.00-0.03); Immature Granulocytes Pct Auto 0.3 % (0.0-0.5); Lymphocytes Absolute Auto 0.7 10^3/uL (1.2-3.8); Lymphocytes Percent Auto 18.5 % (20.5-60.0); Mean Corpuscular HGB Conc 33.4 g/dL (29.9-35.2); Mean Corpuscular Hemoglobin 28.9 pg (26.7-34.0); Mean Corpuscular Volume 86.5 fL (81.0-99.0); Mean Platelet Volume 9.4 fL (9.5-13.5); Monocytes Absolute Auto 0.4 10^3/uL (0.3-0.8); Neutrophils Absolute Auto 2.6 10^3/uL (1.4-6.5); Neutrophils Percent Auto 66.3 % (43.0-75.0); Platelet Count 228 10^3/uL (150-450); Red Blood Count 5.54 10^6/uL (4.20-5.40); White Blood Count 3.9 10^3/uL (4.0-11.0)
[2024-05-19 10:12] LABS: Free T4 1.45 ng/dL (0.76-1.46)
[2024-05-19 10:15] LABS: Alanine Aminotransferase 22 U/L (14-59); Albumin Globulin Ratio 1.1; Albumin Level 3.6 g/dL (3.4-5.0); Alkaline Phosphatase 76 U/L (46-116); Anion Gap 9.8; Aspartate Amino Transferase 13 U/L (15-37); BUN Creatinine Ratio 20.3; Bilirubin Total 0.5 mg/dL (0.2-1.0); Calcium 9.5 mg/dL (8.5-10.1); Carbon Dioxide 27.2 mmol/L (21.0-32.0); Chloride 104 mmol/L (98-107); Chol HDL Ratio 4.2; Cholesterol 199 mg/dL (<=200); Estimated GFR (African America >60 (>=60); Estimated GFR (Non-African Ame >60 (>=60); Globulin 3.3 g/dL; Glucose 114 mg/dL (74-106); HDL Cholesterol 47 mg/dL (40-60); Sodium 137 mmol/L (136-145); Thyroid Stimulating Hormone 0.198 uIU/mL (0.358-3.740); Total Protein 6.9 g/dL (6.4-8.2); Triglycerides 204 mg/dL (<=150); VLDL CHOLESTEROL 40.8 mg/dL
== END 2024-05-19 09:17 | disposition home or self-care (01) ==
LOC: LAB 09:16
PROVIDERS: PCP Family Medicine; Visit Provider Family Medicine
DX: Z00.00 Encounter for general adult medical examination without abnormal findings (principal); E03.9 Hypothyroidism, unspecified; I10 Essential (primary) hypertension
CPT/HCPCS: 36415; 80053; 80061; 84439; 84443; 85025

== ENCOUNTER 2024-06-18 14:11 | Outpatient (OUT) | payer MEDICARE, BC, OTHER, SELFPAY ==
--- NOTE | 2024-06-18 14:17 | MR_ITS ---
The [address] [address] Patient Name: CECI BURROWS MRN: [id number] date: 1955 Sex: F Assigned Patient Location: MRI Current Patient Location: MRI Accession/Order Number: [id number] Exam Date: 06/18/2024 14:35 Report Date: 06/18/2024 15:20 At the request of: CAMILLE WILLIAMSON Procedure: MR head/brain wo con MR head/brain wo con, 06/18/2024 2:35 PM EDT INDICATION: Impairment Of Balance COMPARISON: There is no appropriate prior study for comparison. TECHNIQUE: Multiplanar, multisequential MRI images of brain were obtained without injection of contrast. The patient refused injection of contrast. FINDINGS: The cerebral sulci as well as ventricular system are appropriate for age. There is no restricted diffusion. Hyperintensities on T2 and FLAIR images in the naqvi radiata and centrum semiovale with sparing of U fibers are nonspecific, statistically most likely consistent with moderate microvascular ischemic changes. There is no intracranial mass, mass effect, midline shift, intra or extra-axial fluid collection or large hemorrhage. Normal flow-void in the intracranial vessels is noted. There are retention cysts within the maxillary sinuses. The visualized portions of orbits, right mastoid air cells as well as paranasal sinuses are unremarkable. Mild fluid within the left mastoid air cells is noted. MR/MR head/brain wo con IMPRESSION: No acute intracranial process is noted. Moderate microvascular ischemic changes. Nonspecific fluid within the left mastoid air cells. Clinical correlation is recommended. Electronically authenticated by: ADELAIDE BELLO Date: 06/18/2024 15:20
--- OUTSIDE RECORDS SUMMARY | 2024-06-18 14:30 | XMS_ITS | CCD ---
Author Organization [facility]ini[facility] Care Team Providers Care Toe Closing Machine Tender Name Role Phone DR CAMILLE WILLIAMSON Attending Unavailable WILLIAMSON, DR CAMILLE Powell Consulting Unavailable WILLIAMSON, DR CAMILLE Powell Primary Care Unavailable CLAY, DR CAMILLE Powell Admitting Unavailable CAMILLE WILLIAMSON Primary Care Physician [phone] Camille Williamson Gwyn Garcia Attending Unavailable Garcia, Gwyn Spencer Admitting Unavailable Garcia, Gwyn Spencer Referring Unavailable Garcia, Gwyn Spencer Attending Unavailable Garcia, Gwyn T Admitting Unavailable Garcia, Gwyn T Referring Unavailable Garcia, Gwyn Spencer Attending Unavailable Garcia, Gwyn T Admitting Unavailable Garcia, Gwyn Spencer Referring Unavailable Camille Williamson MD Primary Care Provider GWYN GARCIA Referring Unavailable GARCIA, GWYN Spencer Attending Unavailable GARCIA, GWYN T Referring Unavailable LADONNA, PRINCESS Attending Unavailable LADONNA, PRINCESS Attending Unavailable LADONNA, PRINCESS Referring Unavailable LADONNA, PRINCESS Attending Unavailable CHAILENE Attending Unavailable LADONNA, PRINCESS Referring Unavailable DEDEROBERTO Attending Unavailable LADONNA, PRINCESS Referring Unavailable DEDE, ROBERTO Attending Unavailable LADONNA, PRINCESS Referring Unavailable CHA, ILENE Attending Unavailable LADONNA, PRINCESS Referring Unavailable DEDE, ROBERTO Attending Unavailable LADONNA, PRINCESS Referring Unavailable DEDE, ROBERTO Attending Unavailable LADONNA, PRINCESS Referring Unavailable HCA, ILENE Attending Unavailable LADNONA, PRINCESS Referring Unavailable CHA, ILENE Attending Unavailable LADONNA, PRINCESS Referring Unavailable CHA, ILENE Attending Unavailable LADONNA, PRINCESS Referring Unavailable CHA, ILENE Attending Unavailable LADONNA, PRINCESS Referring Unavailable DEDE, ROBERTO Attending Unavailable LADONNA, PRINCESS Referring Unavailable DEDE, ROBERTO Attending Unavailable LADONNA, PRINCESS Referring Unavailable DEDE, ROBERTO Attending Unavailable LADONNA, PRINCESS Referring Unavailable LADONNA, PRINCESS Attending Unavailable DEDE, ROBERTO Attending Unavailable LADONNA, PRINCESS Referring Unavailable PRINCESS DOUGHERTY Referring Unavailable ROBERTO AGUAYO Attending Unavailable ROBERTO AGUAYO Attending Unavailable PRINCESS DOUGHERTY Referring Unavailable Allergies Allergy Classification Reported Allergen(s) Allergy Type Date of Onset Reaction(s) Facility (1 source) No Known Medication Allergies; Translations: [No Known Medication Allergies] Propensity to adverse reactions (disorder) [facility] Repository Medications Current Medications Medication Drug Class(es) [...] hours as needed for knee replacement pain, [facility]/pharmacy #[id number], 160, cm, 08/09/22 5:49:00 EST, [...] day(s), # 30 tab(s), Refills(s) 0, Pharmacy: [facility]/pharmacy #[id number], 160, cm, 08/09/22 5:49:00 EST, [...] BID, # 20 cap(s), Refills(s) 0, Pharmacy: [facility]/pharmacy #[id number], 160, cm, 08/09/22 5:49:00 EST, Height/Length Dosing, 114.3, kg, 08/09/22 5:49:00 EST, Weight Dosing Start Date: 08/26/22 Status: Ordered fluticasone propionate 0.05 mg/actuat metered dose nasal spray (5 sources) Corticosteroid Start: 2024 End: 03-05-2024 take 1 spray(s) nasal route once daily Fluticasone Propionate Active 2 SPRAY INTRANASAL Daily March 05, 2024 8:34am administer into each nostril levothyroxine sodium 0.125 mg oral tablet (20 sources) l-Thyroxine Start: 05-22-2024 take 1 tablet by mouth once daily in the morning Levothyroxine Active 0 .ROUTE .COMPLEX May 22, 2024 9:39am TAKE 1 TABLET BY MOUTH EVERY DAY IN THE MORNING ON AN EMPTY STOMACH Start: 01-18-2024 End: 05-22-2024 take 1 tablet by mouth once daily in the morning Levothyroxine Discontinued 0 .ROUTE .COMPLEX February 03, 2024 10:36am May 22, 2024 9:39am TAKE 1 TABLET BY MOUTH EVERY DAY [...] 0, Thyroid Start Date: 08/06/22 Status: Ordered 24 hr metoprolol succinate 25 mg extended release oral tablet (20 sources) beta-Adrenergic Pao Start: 05-31-2024 take 1 tablet by mouth once daily Metoprolol Succinate Active 0 .ROUTE .COMPLEX May 31, 2024 10:27am TAKE 1 TABLET BY MOUTH EVERY DAY FOR 90 DAYS Start: 01-18-2024 End: 05-31-2024 take 25 mg by mouth once daily Metoprolol Succinate Di scontinued 25 MG PO Daily January 18, 2024 12:00am May 31, 2024 10:27am Start: 08-30-2022 take 1 tablet by luis m th once daily metoprolol 25 mg ER Tab 25 mg = 1 tab(s), Oral, Daily, High blood pressure Start Date: 08/30/22 Status: Ordered take 1 tablet by luis m th every twenty-four hours in the morning metoprolol succinate XL (Toprol-XL) 25 MG 24 hr tablet Take 25 mg by mouth in the morning. Active oxyCODONE hydrochloride 5 mg oral tablet (5 sources) Opioid Agonist take 1 tablet by mouth every six hours oxyCODONE HCl 5 MG 1 tablet as needed Orally every 6 hrs Active venlafaxine (20 sources) Serotonin and Norepinephrine Reuptake Inhibitor Start: 05-08-20 take 1 capsule by mouth once daily Venlafaxine Active 0 .ROUTE .COMPLEX May 08, 2024 8:39am TAKE 1 CAPSULE BY MOUTH EVERY DAY Start: 12-19-2023 End: 12-20-2023 take 1 capsule by mouth once daily at mealtime Venlafaxine Discontinued 0 .ROUTE .COMPLEX December 19, 2023 12:59pm December 20, 2023 12:09pm TAKE ONE CAPSULE BY MOUTH ONCE DAILY WITH FOOD FOR 30 DAYS Start: 11-18-2023 End: 05-08-2024 take 75 mg by mouth once daily Venlafaxine Discontinue d 75 MG PO Daily December 20, 2023 12:26pm May 08, 2024 8:39am Start: 10-15-2022 take 1 capsule by mo uth every twenty-four hours Effexor XR 150 MG 1 capsule with food Orally Once a day for 30 day(s) Sep, Active Start: 09-16-2022 take 1 capsule by mo uth every twenty-four hours Effexor XR 75 MG 1 capsule with food Orally Once a day for 30 day(s) Aug, Active Completed/Discontinued Medications Medication Drug Class(es) Dates Sig (Normalized) Sig (Original) diclofenac sodium 75 mg delayed release oral tablet (5 sources) Nonsteroidal Anti-inflammatory Drug take 1 tablet by mouth every twelve hours Diclofenac Sodium 75 MG 1 tablet as needed Orally Twice a day Not-Taking Problems Active Problems Problem Classification Problem Date Documented Date Episodic/Chronic Anxiety disorders (20 sources) Mixed anxiety and depressive disorder; Translations: [Other specified anxiety disorders] Chronic Cancer of breast (8 sources) Carcinoma in situ of breast; Translations: [Unspecified type of carcinoma in situ of unspecified breast] Onset: 05-06-2008 05-03-2023 Chronic Cancer of breast (1 source) History of malignant neoplasm of breast 08-06-2022 Episodic Diabetes mellitus without complication (18 sources) Impaired fasting glucose; Translations: [Impaired fasting glycemia] Onset: 05-25-2022 Episodic Essential hypertension (20 sources) Essential (primary) hypertension; Translations: [Essential hypertension] Onset: 05-20-2022 Chronic Osteoarthritis (15 sources) Osteoarthritis of knee; Translations: [Unilateral primary osteoarthritis, right knee] Onset: 08-26-2022 Chronic Other circulatory disease (12 sources) Elevated blood-pressure reading without diagnosis of hypertension; Translations: [Elevated blood-pressure reading, without diagnosis of hypertension] Episodic Other connective tissue disease (4 sources) History of right total knee replacement; Translations: [Presence of right artificial knee joint] Onset: 04-20-2023 04-20-2023 Chronic Other connective tissue disease (2 sources) Other symptoms and signs involving the musculoskeletal system; Translations: [Other musculoskeletal symptoms referable to limbs] 05-29-2024 Episodic Other ear and sense organ disorders (12 sources) Hearing loss; Translations: [Unspecified hearing loss, bilateral] Chronic Other ear and sense organ disorders (7 sources) Bilateral hearing loss; Translations: [Unspecified hearing loss, bilateral] Chronic Other ear and sense organ disorders (1 source) Unspecified hearing loss, bilateral Chronic Other ear and sense organ disorders (4 sources) Past history of procedure; Translations: [Myringotomy tube(s) status] Onset: 05-03-2023 05-03-2023 Chronic Other ear and sense organ disorders (4 sources) Mixed conductive AND sensorineural hearing loss; Translations: [Mixed conductive and sensorineural hearing loss, unilateral, right ear with restricted hearing on the contralateral side] Onset: 05-03-2023 05-03-2023 Chronic Other ear and sense organ disorders (4 sources) Mixed conductive and sensorineural hearing loss, bilateral; Translations: [Mixed conductive and sensorineural hearing loss, bilateral] Onset: 05-03-2023 05-03-2023 Chronic Other ear and sense organ disorders (4 sources) Sensorineural hearing loss, bilateral; Translations: [Sensorineural hearing loss, bilateral] Onset: 05-03-2023 05-03-2023 Chronic Other nervous system disorders (2 sources) Impairment of balance; Translations: [Other abnormalities of gait and mobility] 02-13-2024 Episodic Other nervous system disorders (1 source) Other abnormalities of gait and mobility; Translations: [Abnormality of gait] 06-05-2024 Episodic Other non-traumatic joint disorders (12 sources) Pain [...] and metabolic disorders (1 source) Hypercalcemia Chronic Other nutritional; endocrine; and metabolic disorders (4 sources) Obesity caused by energy imbalance; Translations: [Morbid (severe) obesity due to excess calories] Onset: 05-03-2023 05-03-2023 Chronic Other nutritional; endocrine; and metabolic disorders (4 sources) Morbid obesity; Translations: [Morbid (severe) obesity due to excess calories] Onset: 05-03-2023 05-03-2023 Chronic Otitis media and related conditions (4 sources) Bilateral chronic serous otitis; Translations: [Chronic serous otitis media, bilateral] Onset: 05-03-2023 05-03-2023 Chronic Otitis media and related conditions (15 sources) Non-suppurative otitis media; Translations: [Unspecified nonsuppurative otitis media, bilateral] Episodic Thyroid disorders (20 sources) Hypothyroidism, unspecified; Translations: [Hypothyroidism] Onset: 11-21-2012 08-06-2022 Chronic Past or Other Problems Problem Classification Problem Date Documented Da te Episodic/Chronic Other ear and sense organ disorders (4 sources) Bilateral tinnitus; Translations: [Tinnitus, bilateral] Onset: 05-03-2023 05-03-2023 Episodic Results Test Name Value Interpretation Reference Range Facil ity Basophils Auto (Bld) [#/Vol] on 05-19-2024 Basophils (Bld) [#/Vol] 0.1 10 3/uL 0.0-0.1 [facility] Basophils/100 WBC Auto (Bld) on 05-19-2024 Basophils/100 WBC (Bld) 1.8 % 0.2-2.0 [facility] Cholesterol in LDL Calc [Mas s/Vol]on 05-19-2024 Cholesterol in LDL [Mass/Vol] 112.0 mg/dL [facility] Comment on above: <100 mg/dl [id number] 0-129 mg/dl NEAR OR ABOVE [id number] mg/dl BORDERLINE [id number] mg/dl HIGH>190 mg/dl VERY HIGH Cholesterol in VLDL Calc [Ma ss/Vol]on 05-19-2024 Cholesterol in VLDL [Mass/Vol] 40.8 mg/dL [facility] Eosinophils/100 WBC Auto (Bl d)on 05-19-2024 Eosinophils/100 WBC (Bld) 3.1 % 0.9-7.0 [facility] Erythrocyte distribution wid th Auto (RBC) [Ratio]on 05-19-2024 Erythrocyte distribution width (RBC) [Ratio] 14.0 % 11.0-15.0 [facility] Estimated glomerular filtrat ion rate (GFR) non- Americanon 05-19-2024 GFR/1.73 sq M.predicted among non-blacks MDRD (S/P/Bld) [Vol rate/Area] mL/min/{1.73_m2} >=60 [facility] Globulin Calc (S) [Mass/Vol] on 05-19-2024 Globulin (S) [Mass/Vol] 3.3 g/dL [facility] Hematocrit Auto (Bld) [Volum e fraction]on 05-19-2024 Hematocrit (Bld) [Volume fraction] 47.9 % 36.0-48.0 [facility] Hemoglobin [Mass/volume] in Bloodon 05-19-2024 Hemoglobin (Bld) [Mass/Vol] 16.0 g/dL 12.0-16.0 [facility] Laboratory - Chemistry and C hemistry - challengeon 05-19-2024 Albumin [Mass/Vol] 3.6 g/dL 3.4-5.0 [facility] ALP [Catalytic activity/Vol] 76 U/L 46-116 [facility] ALT [Catalytic activity/Vol] 22 U/L 14-59 [facility] AST [Catalytic activity/Vol] 13 U/L Low 15-37 [facility] Bilirubin [Mass/Vol] 0.5 mg/dL 0.2-1.0 [facility] Calcium [Mass/Vol] 9.5 mg/dL 8.5-10.1 [facility] Chloride [Moles/Vol] 104 mmol/L 98-107 [facility] Cholesterol [Mass/Vol] 199 mg/dL <=200 [facility] Cholesterol in HDL [Mass/Vol] 47 mg/dL 40-60 [facility] Comment on above: > or =60 mg/dl - LOW CARDIOVASCULAR RISK<40 mg/dl - HIGH CARDIOVASCULAR RISK CO2 [Moles/Vol] 27.2 mmol/L 21.0-32.0 [facility] Creatinine [Mass/Vol] 0.74 mg/dL 0.55-1.02 [facility] Free T4 [Mass/Vol] 1.45 ng/dL 0.76-1.46 [facility] GFR/1.73 sq M.predicted MDRD (S/P/Bld) [Vol rate/Area] mL/min/{1.73_m2} >=60 [facility] Glucose [Mass/Vol] 114 mg/dL High 74-106 [facility] Potassium [Moles/Vol] 4.0 mmol/L 3.5-5.1 [facility] Protein [Mass/Vol] 6.9 g/dL 6.4-8.2 [facility] Sodium [Moles/Vol] 137 mmol/L 136-145 [facility] Triglyceride [Mass/Vol] 204 mg/dL High <=150 [facility] TSH Qn 0.198 m[IU]/L Low 0.358-3.740 [facility] Urea nitrogen [Mass/Vol] 15.0 mg/dL 7.0-18.0 [facility] Urea nitrogen/Creatinine [Mass ratio] 20.3 mg/mg [facility] Laboratory - Hematology and Cell countson 05-19-2024 Immature granulocytes/100 WBC (Bld) 0.3 % 0.0-0.5 [facility] Leukocytes [#/volume] correc bright for nucleated erythrocytes in Blood by Automated counon 05-19-2024 WBC corrected for nucl RBC Auto (Bld) [#/Vol] 3.9 10 3/uL Low 4.0-11.0 [facility] Lymphocytes Auto (Bld) [#/Vo l]on 05-19-2024 Lymphocytes (Bld) [#/Vol] 0.7 10 3/uL Low 1.2-3.8 [facility] Lymphocytes/100 WBC Auto (Bl d)on 05-19-2024 Lymphocytes/100 WBC (Bld) 18.5 % Low 20.5-60.0 [facility] MCH Auto (RBC) [Entitic mass ]on 05-19-2024 MCH (RBC) [Entitic mass] 28.9 pg 26.7-34.0 [facility] MCHC Auto (RBC) [Mass/Vol]on 05-19-2024 MCHC (RBC) [Mass/Vol] 33.4 g/dL 29.9-35.2 [facility] MCV Auto (RBC) [Entitic vol] on 05-19-2024 MCV (RBC) [Entitic vol] 86.5 fL 81.0-99.0 [facility] Monocytes Auto (Bld) [#/Vol] on 05-19-2024 Monocytes (Bld) [#/Vol] 0.4 10 3/uL 0.3-0.8 [facility] Monocytes/100 WBC Auto (Bld) on 05-19-2024 Monocytes/100 WBC (Bld) 10.0 % 1.7-12.0 [facility] Neutrophils Auto (Bld) [#/Vo l]on 05-19-2024 Neutrophils (Bld) [#/Vol] 2.6 10 3/uL 1.4-6.5 [facility] Neutrophils/100 WBC Auto (Bl d)on 05-19-2024 Neutrophils/100 WBC (Bld) 66.3 % 43.0-75.0 [facility] No Panel Informationon 05-19 Eosinophils # (Auto) 0.1 10 3/uL 0.0-0.7 [facility] Immature Granulocyte # (Auto) 0.01 10 3/uL 0.00-0.03 [facility] Platelet mean volume Auto (B ld) [Entitic vol]on 05-19-2024 Platelet mean volume (Bld) [Entitic vol] 9.4 fL Low 9.5-13.5 [facility] Platelets Auto (Bld) [#/Vol] on 05-19-2024 Platelets (Bld) [#/Vol] 228 10 3/uL 150-450 [facility] RBC Auto (Bld) [#/Vol]on RBC (Bld) [#/Vol] 5.54 10 6/uL High 4.20-5.40 [facility] Serum or plasma albumin/glob ulin mass ratioon 05-19-2024 Albumin/Globulin [Mass ratio] 1.1 {ratio} [facility] Serum or plasma anion gap de terminationon 05-19-2024 Anion gap [Moles/Vol] 9.8 mmol/L [facility] Serum or plasma total choles terol/high density lipoprotein (HDL) cholesterol mass alaina 05-19-2024 Cholesterol.total/C holesterol in HDL [Mass ratio] 4.2 {ratio} [facility] Comment on above: 3.3 - 4.4 LOW RISK4. 4 - 7.1 AVERAGE RISK7.1 - 11.0 MODERATE RISK>11.0 HIGH RISK Albumin [Mass/volume] in Ser um or Plasmaon 01-10-2024 Albumin [Mass/Vol] 3.8 g/dL 2.9-4.4 [facility] Glucose mean value [Mass/vol ume] in Blood Estimated from glycated hemoglobinon 01-10-2024 Average glucose Estimated from glycated hemoglobin (Bld) [Mass/Vol] 123 mg/dL [facility] Laboratory - Chemistry and C hemistry - challengeon 01-10-2024 Cobalamin (Vitamin B12) [Mass/Vol] 359.0 pg/mL 193.0-986.0 [facility] TSH Qn 1.183 m[IU]/L 0.358-3.740 [facility] Laboratory - Hematology and Cell countson 01-10-2024 HbA1c (Bld) [Mass fraction] 5.9 % 4.5-6.2 [facility] Comment on above: ADA RECOMMENDED LIMI T 4.0 - 6.0ADA THERAPEUTIC TARGET < 7.0ACTION SUGGESTED> 7.0 No Panel Informationon 01-09 Folate 13.70 ng/mL 8.60-58.90 [facility] Protein Electrophoresis M-Tu Not Observed g/dL Not Observed [facility] Protein Electrophoresis Note Comment . [facility] Comment on above: Protein electrophore sis scan will follow via computer,mail, or patcher wood welder delivery.Performed at: [facility] [id number] Director: Rylan Agustin PhD, Phone: [phone] Protein [Mass/volume] in Ser um or Plasmaon 01-10-2024 Protein [Mass/Vol] 6.6 g/dL 6.0-8.5 [facility] Serum globulin measurement ( mass/volume)on 01-10-2024 Globulin (S) [Mass/Vol] 2.8 g/dL 2.2-3.9 [facility] Serum or plasma albumin/glob ulin mass ratioon 01-10-2024 Albumin/Globulin [Mass ratio] 1.4 {ratio} 0.7-1.7 [facility] Serum or plasma alpha 1 glob ulin measurement by electrophoresis (mass/volume)on 01-10-2024 Alpha 1 globulin Elph [Mass/Vol] 0.2 g/dL 0.0-0.4 [facility] Serum or plasma alpha 2 glob ulin measurement by electrophoresis (mass/volume)on 01-10-2024 Alpha 2 globulin Elph [Mass/Vol] 0.8 g/dL 0.4-1.0 [facility] Serum or plasma beta globuli n measurement by electrophoresis (mass/volume)on 01-10-2024 Beta globulin Elph [Mass/Vol] 0.9 g/dL 0.7-1.3 [facility] Serum or plasma gamma globul in measurement by electrophoresis (mass/volume)on 01-10-2024 Gamma globulin Elph [Mass/Vol] 0.8 g/dL 0.4-1.8 [facility] Coding Summary.on 12-20-2022 Coding Summary. [id number] Ww +PGhlYWQ+YN9WQBWdP14yk XTnvA2gD8BDJFuEZsnfCOK TYIwPTyZpxqEtNC2skKIuT XJu IC8+IY4xSJCyTpxtxPMiv7 C2mYW4K02bdg5hFXekhSE5 CMLbPiUvnkxjb2nciRz3ZP cuNmluOyBt XEZwfI24DHW4rG97Dr59mX MkoFWih4peeWi6CrXoKOGr WNV0aNvmCDsgk4ZjAFPwM7 5moIGql5G4 GCKjhQrsmVGnJxGfrBE6jO 5uJUdbilbdt1wojxcxVci8 ye33mERmb3E0dSF8S7Gcil G3DJAtfUVi AjbfuDSHiW5gjliue6znfy nxTiOpJILvNOk8VFg1ENDj iHmgVqWdRZ22RMC0OTGqra NhM4GxHALd oHejWcT5k6R7Ky3MU4YGQx tlZ0IXROQLHKwhyEX+PC90 xb09O9RiAehqDoy3VXSuLN W2eVX4xI5r KSBsOQflb8R1fPK2C4Nhzg Ddnm4ta5bgERWfVYwpL93s xZOgf1Q6FDLbvQW3JRSwfE dzMfJkiZ24 Oyc+BUZpjUzmi0ZoJwbvh8 jqs5buoOi2VtjcOAIkxyMm cEayJKT5x7AzTy5nAYFbzO Q3sUH4aN0g PyZiMpC2EGuwI946NtWivY ArNoqbS53sY3XnuGL+PHRy Hxc2NSKcyVafMC1iQ0CoSM RpbmctbGVm hYapLO2sVGDywdovLDPjqA 4dRHZqY1s2UhCoFtA5CMrf U4EwSIOujzqpJz95fM0cTg HeQtL5HOsl E9VjnhL7FENsvRUkZWicCE R3A18en3H8TNImSDXzAXV7 bXP7mJ2ttXbtmlgehCMivC sgdmVydGlj CNleKHnsJ060NOYtyJgwZv NvZGluZyBEYXRlOiAgMDQv MjQvMjAyMzwvdGQ+PHRkIH W8oAtaEUAz sKYsKTbnFe0jtQvxzOvaSG 1lLXSslrntBGHsfX7fTJQv yMMjfDufPS2eVELflcjcc9 38EtLlQZG2 FQMbaYGnE3VumK8lAeYcGC QlRFXjX5PcjSDbGNaiP233 JIbdPcM3YNWofpIuO2UiSG FsaWduOiB0 p3X1Pz9Ah0MiwpkfB5GlqV EgVaKfXnniGHx0Q2PkFzdt dHI+KS20HAXrIM13MDr7JL H4eFbeNZgz AAFzJ8MzkX9jGmUxYPOkVF RkOyc+PHRhYmxlIHdpZHRo ZOtuKHAtYhLimXueVE0tLv 9yZGVyLWNv vPjtdXLhOfElt1vlYNPzKP xeUX0kiVjwK1YtbJB2PTGl c1e5Wf26R11yA2XeoEU+PG NjtKY3pDZ6 rX0eBsHhPeR0URiyF554Hy TasMJoPmqwj2kvv4forOs9 HnR0NGZhwfKsjOqmRGZ0o5 QjNy56S49a IHdpZHRoPSIxNSUiIHZhbG yfar4crX7uRo9+PGNvbCB3 jAI6yA6xVbOzFeO8RHguM7 49InRvcCIv Kbqke9mhj4bzyPx5KhTpFZ HukkKbsWgkVWN8p4PjLh78 N5CknTmty5UkGjt9jc76hJ Tgn2U1gYP6 T2SaQWOpnapwnRBwtOzhVF 7eJYYfubqeYPTwyF2sWKGk I7z1SuFjNnO6HJstC3Cyuk O1CUVzyGPg GYDepMZTyQ3aejwij0ogew qeFhWiPHYpZEf4BCm1JJDb tHusFxUuXDD1IvV2WEM6kC OqnU5vuZqd sntcqC3rXyl+GJZ3tKBjxD WUHS9oMgsalZD+PHRkIHN0 gUioYRixQTLdlD0zECWwK7 y1QjTjVsF4 AFnlD7YglbA9TDDfqAQpNL GhuARTgK5bbwufo6ojmiih FiWoNCCaXVk6DYq0XQYfjU duOiBsZWZ0 YhJ7GXF1wNJjqA4xsSjfqr alqC0dHnh+QmlydGggRGF0 MVw1Q3EgGyj6MFXudVztWV 0ncGFkZGlu Na4lyQroaZqhQL3rMTLuct ety516KkMox3uyDXCoeHDt IItlBJP4G03rm7G0GDAnHC GvECU9bYJ0 kF1enWnbyuphwYUgnDbpqj QmbKuiQTkeZAkwL271ZNQf cPogHoRiLCs1H0MsMyc0UT OoxZykJL7u zUCeZKseDn8yuJyryOqhNC 8lPMZlxzpfu057LkJhv8cb COOrhHIrASllORM7Y15ua2 U0JZKoSNNi UOX4pAH7lZ7wmSzetejjrI VmdDsgdmVydGljYWwtYWxp D164FQOcuWyhIxLzrEh0L9 HiOpy6RTZx pHzsZO6deXAwCVxfDf8tzV msiDwgWB0oOVLbhykid684 ApTks9jwLCAjiRWzVNxxLM W8M63od3Y6 EXXkLCJgFWK6zLX8hN9qkV lnbjogbGVmdDsgdmVydGlj CLigILccT406IHRjsTerIl BhdGllbnQg IOtrJUr7C5MyVbhbvGC+PC 95YVXgHM70pEHwkXYdk2dw lAv4FuGaHOLgJIC4zKwtPX efv7NxACTz A64tvQXhb9L5UEFdwFevsY UfXtIcpFY6zB9rIAvjdill z2iiubnkEckaj5eksq74eY 40D37lLXvj ZHRoPSIzMCUiIHZhbGlnbj 8ctA0sZd0+VYNapWS7oCL7 zN8dZPRtGhV3WFqyX009Gm RvcCIvPjxj t4vll9cplXt3JaI3NQVfxw AqbEodBXQ3m8QcUa44I88j IHdpZHRoPSIyMCUiIHZhbG behb5faR3c Ii8+JANkuRV3lAZ2fP5lRc CgTpE9VJkpK943KmShwUCm RwkzY33fM4KraHE+PHRyPj c1RXDixQup WR2ulZGhXQijXg4cKHL3Qe NjDlKcUGhdP0FvJQSsxuzb fwfxsKA2XYYfSRDpeD44Rp 9udDogMTBw rXMVfK1scdjnv3kmkvhoXy MdEJXjCZm8YAr3WKKwoHsd UpYjLRZ2TkK2QSG9yJYerL 1hbGlnbjog nR8gR1YfGQOqvaghPj73iB 9zQrZyFyL8CJdaDuf+Uk9I EwTFT5oQQqcnX5XWXR50E8 BqHxt7ZORb cQswKJ4luAMxRKboVz1ovA oruVigJM9hJRXdugnyILZb fU8uULMwyYGdaDmdIC7bTV Siipcqb395 QkUqUDP7AJEncAOrU8TtfJ 6pCwBcMCBlUJRdN5MblIDq UZroC023PHfrJdW3LSTqej EtI9RdVFZf yJcqAqZ1e9T7Ad4nAb4rFK 9nLJS5AE60QF10wXHpv8S4 yHI7H5RmZSQbkdgwmdgciK G1WZLrLBLb yI62nHYcARzeXb3lv0M8m1 07OTZtKDSfyD90Pi4pqGcr ZODcfVBVgX7ndxdzx4ykla ogIzAwMDAw KLd4FGu4XYPdlZpzMmOdFW I1MxM5NTV1wBPpsP1cuMjj otneeK9bLle+NjggWWVhcn U0L3XrNxq9 YMGqqGyoRT8yfUHuHJgjYg 2vqRfxzUieAM4kAQOlrfkj YXDpqJ6aJMSnoICfpPsbAO 4wNTBpbjtm l094SpUuRML9OTYpvTQmP4 EjxH4vShPcOSScKNXhN8Uo fLLhQOkzO560HFokDnK9QJ MlecSiT1Se DDXiiQtoQpL2l1I8Sp0NMJ 1crDP6J0FjFja4XCJnmEbi TO6wtOOdVWhfXo6jiIzbhV gxPE6sGKFw ndyoCCEpnB8xJLLadFRpjW elVX7iYUJtcrbof785CiDd OCZ2GZDraYXlE8UmqI5nFi AjMDAwMDAw W0YmjBVuQKnbM005WOqpMl J3EEZcufUqQ8UpOHRvcLuf DcB1x3R2Sp2GgwVtyHiczo O2V5RuWzqy dHI+EP06QCDoXJ41lMYnjA Scv2zyaBe6QwYhABHcEVL1 tTukCNkdu5CmVRVxV97klJ Yyl0Y1SNDb tMlvePYxZsNrgPI9mR1uKJ vlikuxu9ryauxjEvgjf0ea tn52fQ39Z56qXBrkRFEeOK IzMCUiIHZh nDkfmz3ehX4zSd0+PGNvbC E6qRL0pE2yJeTjCaP9GRcv Y516ZtHnfVBkMymuq7rmo4 haaUg2UwZf PGEakyJqnDptFEN8e2PrVy 15T84bDRphNLQoWJKdATGl CSRgiAetik2qiE5bNr9+PC 5qu5othu17 wL89mQN+WWUjUGW8dUlkUZ pvMSFupA1kTXcfUjY8WJVg TaBeuE40eRCwPUpeGg2obT aeyRjmQI2w VNIkeobyh453UcBnr3zhPB DpsJVtRTduTXT3A60pu0A0 DDVmOPKiWVG3gBE1nV8dvS lnbjogbGVm dDsgdmVydGljYWwtYWxpZ2 08USDynFbzIdVgiPUxA5ly zwVMCE1bKkfxbZE+PHRkIH T6zHujSWln HLNdzD3nFKHjV2r7BhMfJw G6TPccM4VxsjN1YBAwdBHx JOKdbGBFzF1oylzhh1qgke ogIzAwMDAw ESw6BNu6WGQfzFjvFjUqJC W1KkK5QVY6gBKlvN0xkPsi oxaygI2aJwq+RklOOjwvdG Q+PHRkIHN0 hMutXUxsCBKmwA0cUBWrQ6 i2RdWeNyC2LLhfU4GzauK4 JBBukGUbRHJjjLOMxI3mqd ycy9khalzz PvHuNTVdBVu0ICp9KZXdvO ztBwRsYCW3WbV6JXD6hCGo fS2lvAohsepjzG9jZdq+TV JOOjwvdGQ+ PXEhBVU1zVnoVGfcOPNhtV 3uLYXqW4z5PnGlSyN2WMqo Y4TibuZ7LEApfVDdCZBnqS ITiE3bgubd i8qzelukJkTgWJLpSSn1GY b0VLJqaKilMwHqZMU8IqE5 XYE4qAJmqM4lwHfuvnerfH 9wOyc+UGF5 MTP0MM90MV81R2EuSnqjqT FibGU+PHRhYmxlIHdpZHRo IVogQHOjFeNopTigLE0bDk 9yZGVyLWNv bGxhcHNl (more content not included)... Normal [facility] IntraOperative Documentson 0 12-20-2022 IntraOperative Documents [id number]#1. 00CD:127 Normal [facility] Operative Reporton 3 Operative Report Patient: CECI SPEARS Age: 67 years Sex: Female : 1955 Associated Diagnoses: None Author: MD Margot, [facility] Postoperative Information Date/ Time: 12/13/2022 09:00:00 Preoperative [...] Using maximal sterile barrier technique per current [facility] guidelines including hand hygeine, Guidance (Ultrasound [...] surgeon request for post-op pain management. Normal [facility] Comment on above: Result Comment: Elec tronically Signed By: MD Margot, Andrew Browne\.br\Date and Time Signed: 12/19/22 13:04 EDT IntraOperative Documentson 0 12-17-2022 IntraOperative Documents [id number]#1. 00CD:127 Normal [facility] Auto Diffon 12-14-2022 Basophils/100 WBC (Bld) 0.6 % Normal 0.0-2.0 [facility] Comment on above: Order Comment: Order Added by Discern Expert. Performed By: #### 2 295406, 3218110, 6291240, 09210190, 1185517, 1548426 ####[facility] [address] [place] [address] Basophils/Leukocyte s Auto (Bld) [Pure # fraction] 0.0 E9/L Normal 0.0-0.2 [facility] Comment on above: Order Comment: Order Added by Discern Expert. Performed By: #### 2 056991, 9446986, 9768062, 23402475, 7156385, 1103316 ####[facility] [address] [place] [address] Eosinophils/100 WBC (Bld) 1.0 % Normal 0.0-8.0 [facility] Comment on above: Order Comment: Order Added by Discern Expert. Performed By: #### 2 000058, 6913446, 5392247, 76535453, 9572175, 0135991 ####[address] [place] [address] Eosinophils/Leukocy julia Auto (Bld) [Pure # fraction] 0.1 E9/L Normal 0.0-0.5 [facility] Comment on above: Order Comment: Order Added by Discern Expert. Performed By: #### 2 436409, 7472949, 8002949, 70211841, 6988989, 5812981 ####[address] [address] Lymphocytes/100 WBC (Bld) 11.2 % Low 14.0-50.0 [facility] Comment on above: Order Comment: Order Added by Discern Expert. Performed By: #### 2 966985, 7067725, 3828045, 09685162, 8512743, 7012190 ####[address] [address] Lymphocytes/Leukocy julia Auto (Bld) [Pure # fraction] 0.7 E9/L Low 1.0-4.0 [facility] Comment on above: Order Comment: Order Added by Discern Expert. Performed By: #### 2 138602, 5906139, 5766421, 85111557, 3137838, 3985702 ####[address] [address] Monocytes/100 WBC (Bld) 7.7 % Normal 4.0-14.0 [facility] Comment on above: Order Comment: Order Added by Discern Expert. Performed By: #### 2 434619, 5052251, 4948643, 86186647, 3828697, 1488678 ####[address] [place] [address] Monocytes/Leukocyte s Auto (Bld) [Pure # fraction] 0.5 E9/L Normal 0.2-1.0 [facility] Comment on above: Order Comment: Order Added by Discern Expert. Performed By: #### 2 507452, 2362060, 0629702, 54287915, 5342396, 0012235 ####[address] [place] [address] Neutrophils/100 WBC (Bld) 79.5 % High 36.0-75.0 [facility] Comment on above: Order Comment: Order Added by Discern Expert. Performed By: #### 2 118610, 8094228, 8332995, 81268512, 7360020, 4924760 ####[facility] [address] [place] [address] Neutrophils/Leukocy julia Auto (Bld) [Pure # fraction] 5.1 E9/L Normal 2.0-7.5 [facility] Comment on above: Order Comment: Order Added by Discern Expert. Performed By: #### 2 769107, 5243142, 2247620, 88469793, 7928441, 2767168 ####[facility] [address] [place] [address] BUNon 12-14-2022 Urea nitrogen [Mass/Vol] 12 mg/dL Normal 5-21 [facility] Comment on above: Performed By: #### 2 690390, 7371868, 5421101, 80828371, 0050900, 7135064 ####[facility] [address] [place] [address] CBC w/ Auto Diffon Erythrocyte distribution width (RBC) [Ratio] 14.7 % High 10.9-14.2 [facility] Comment on above: Performed By: #### 2 278877, 2741716, 9791833, 74339532, 4613879, 3333172 #### [facility] [address] [place] [address] Hematocrit (Bld) [Volume fraction] 42.3 % Normal 34.0-46.0 [facility] Comment on above: Performed By: #### 2 626241, 7761268, 8032566, 44644913, 1768708, 6163886 #### [facility] [address] [place] [address] Hemoglobin (Bld) [Mass/Vol] 13.4 g/dL Normal 12.0-16.0 [facility] Comment on above: Performed By: #### 2 477913, 0466755, 9679969, 55220610, 1187504, 2805105 #### [facility] [address] [place] [address] MCH (RBC) [Entitic mass] 28.1 pg Normal 27.0-34.0 [facility] Comment on above: Performed By: #### 2 733111, 0761114, 3056705, 18282888, 0568829, 7686800 #### [facility] [address] [place] [address] MCHC (RBC) [Mass/Vol] 31.8 g/dL Normal 31.4-36.0 [facility] Comment on above: Performed By: #### 2 257123, 0738012, 9508101, 57790993, 3962747, 4084071 #### [facility] [address] [place] [address] MCV (RBC) [Entitic vol] 88.5 fL Normal 80.0-100.0 [facility] Comment on above: Performed By: #### 2 995436, 5444016, 7374719, 94828999, 4699538, 3624536 #### [facility] [address] [place] [address] Platelet mean volume (Bld) [Entitic vol] 7.3 fL Normal 6.4-10.8 [facility] Comment on above: Performed By: #### 2 425504, 4879133, 2028210, 79651897, 5431209, 6266767 #### [facility] [address] [place] [address] Platelets (Bld) [#/Vol] 193.0 E9/L Normal 150.0-500.0 [facility] Comment on above: Performed By: #### 2 906323, 5559521, 7436118, 42696882, 6647649, 6047799 #### [facility] [address] [place] [address] RBC (Bld) [#/Vol] 4.8 E12/L Normal 4.3-5.9 [facility] Comment on above: Performed By: #### 2 607957, 9820971, 5948118, 58336758, 3212212, 2503539 #### [facility] [address] [place] [address] WBC corrected for nucl RBC Auto (Bld) [#/Vol] 6.4 E9/L Normal 4.0-11.0 [facility] Comment on above: Performed By: #### 2 369202, 8890063, 3397019, 88940171, 5718060, 1357213 #### [facility] [address] [place] [address] Consent for Anesthesiaon Consent for Anesthesia [id number]#1. 00CD:127 Normal [facility] Creatinineon 12-14-2022 Creatinine [Mass/Vol] 0.7 mg/dL Normal 0.5-1.3 [facility] Comment on above: Performed By: #### 2 219073, 3387704, 7972359, 73084810, 2469583, 5390309 ####[facility] [address] [place] [address] Discharge Instructionson Discharge Instructions [id number]#1. 00CD:127 Normal [facility] Discharge Note-Nursingon Discharge Note-Nursing SNEHALLissa CECI :1955 Visit Date:12/13/2022 Inpatient Discharge Instructions Your [...] Dressing On Post-op day 10 Pharmacy Information [facility] Discharge Instructions Discharge Instructions New Follow Up Appointments after Discharge Follow Up with Gwyn Garcia When: 01/12/2023 09:30 AM EDT Comments: Keep scheduled appointment Where: [address] [place] [address] (1) Follow Up with CAMILLE WILLIAMSON When: Comments: No PCP appointment required for surgery patient. Please follow up with ORTHO. Thank you! Where: [address] [place], [place] [address] (1) Medications What How Much When Why Instructions Next Dose Unchanged acetaminophen-oxycodon e (Percocet 5 mg-325 mg oral tablet) See instructions Localized osteoarthritis of left knee Take one to two every 4 hours as needed for pain from knee surgery Pickup at [facility]/pharmacy #8694 NEEDED FOR PAIN, AFTER 1215 PM ON 12/14 Unchanged aspirin (aspirin 325 mg Tab) 1 Tablets By Mouth Every day Duration: 30 Days Start the day after knee surgery Pickup at [facility]/pharmacy #6177 12/15 @ 9 AM Unchanged docusate (Colace 100 mg Cap) 1 Capsules By Mouth 2 times a day Pickup at [facility]/pharmacy #6177 12/14 @ 9 PM Unchanged levothyroxine (levothyroxine 137 mcg (0.137 mg) Tab) 1 Tablets By Mouth Every day 12/15 @ 7 AM Unchanged metoprolol (metoprolol 25 mg ER Tab) 1 Tablets By Mouth Every day 12/15 @ 9 AM [id number] [address], [place] [id number] [phone] What How Much When Comments Stop Taking [...] VISCOSITY HIGH [6194-1-010] 12/13/2022, Unknown - RODDY: {01}[id number]{10} [id number]{17}[id number] CEMENT SIMPLEX PLAIN (more content not included)... Normal [facility] IntraOperative Documentson 0 12-14-2022 IntraOperative Documents [id number]#1. 00CD:127 Normal [facility] Lyteson 12-14-2022 Anion gap [Moles/Vol] 10 mmol/L Normal 6-16 [facility] Comment on above: Performed By: #### 2 063961, 0853704, 7492805, 96603281, 3376702, 2373469 ####[facility] [address] [place] [address] Chloride [Moles/Vol] 101 mmol/L Normal 101-111 [facility] Comment on above: Performed By: #### 2 176457, 9003614, 0932048, 52165587, 9544180, 6786368 ####[facility] [address] [place] [address] CO2 [Moles/Vol] 27 mmol/L Normal 21-31 [facility] Comment on above: Performed By: #### 2 956139, 2441544, 7869313, 74134466, 7912050, 0634996 ####[facility] [address] [place] [address] Potassium [Moles/Vol] 3.5 mmol/L Normal 3.5-5.3 [facility] Comment on above: Performed By: #### 2 581423, 2190585, 8091447, 33612135, 4811604, 5957842 ####[facility] [address] [place] [address] Sodium [Moles/Vol] 134 mmol/L Low 135-145 [facility] Comment on above: Performed By: #### 2 366798, 7481666, 6735230, 35270948, 6694927, 8303928 ####[facility] [address] [place] [address] Patient Education - Texton 0 12-14-2022 Patient Education - Text [facility] DISCHARGE INSTRUCTIONS TOTAL KNEE ARTHROPLASTY INCISION [...] will continue at home, possible with the school bus driver/teacher assistant of Home Health Physical Therapy or [...] too soon, you are considered an impaired drive away driver, and 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 It is therefore advised not to drive until after your first office visit following surgery FOLLOW-UP OFFICE VISIT: __ Gwyn Garcia, DO [facility] [address] [place] [address] Reviewed: 12-04 aspirin (oral) ( pir in) Arthritis Pain, Aspi-Cor, Aspir-Low, Ivy Plus, Durlaza, Ecotrin, Miniprin, Vazalore What is the most important information I should know about aspirin? Aspirin can cause Mark's syndrome, a serious and sometimes fatal condition in children. What is aspirin? Aspirin is a salicylate (zn-PCB-wp-ate) that is used to treat pain, and [...] planned surger (more content not included)... Normal [facility] Preoperative Documentson Preoperative Documents [id number]#1. 00CD:127 Normal [facility] Progress Note-Physicianon Progress Note-Physician Patient: CECI SPEARS [...] All Problems Knee osteoarthritis / SNOMED CT 908051909 / Confirmed Hypothyroid / SNOMED CT 91504293 / Confirmed At risk for falls / SNOMED CT 696380159 / Possible Problem added when Risk for [...] d/c home today with 360 rehab.. Normal [facility] Comment on above: Result Comment: Elec tronically Signed By: Gwyn Garcia DO\.br\Date and Time Signed: 12/14/22 06:58 EDT eGFRon 12-14-2022 GFR/1.73 sq M.predicted among blacks MDRD (S/P/Bld) [Vol rate/Area] mL/min/{1.73_m2} Normal >=59 [facility] Comment on above: Order Comment: Order added by Discern Expert. Result Comment: eGFR is race adjusted. AA=. Performed By: #### 2 199373, 1165069, 7752238, 81491425, 3278389, 2584617 ####[facility] [address] [place] [address] GFR/1.73 sq M.predicted among non-blacks MDRD (S/P/Bld) [Vol rate/Area] mL/min/{1.73_m2} Normal >=59 [facility] Comment on above: Order Comment: Order added by Discern Expert. Result Comment: Labor Relations Representative taylor kidney disease could be indicated at eGFR's of less than 60 mL/min/1.73m2. Kidney failure is indicated at less than 15 mL/min/1.73m2. Performed By: #### 2 661813, 6028049, 4269629, 10316835, 1183601, 4243678 ####[facility] [address] [place] [address] ABO/Rhon 12-13-2022 ABO/Rh Positive Invalid Interpretation Code [facility] Comment on above: Performed By: #### 2 097736, 7105405, 96328621, 8633720, 7381152, 8908487 #### [facility] [address] [place] [address] ABO/Rh History Checkon 12-13 ABO/Rh History Check Verified Hx Blood Type Normal [facility] Comment on above: Performed By: #### 2 046695, 3380975, 96484038, 3412482, 5901198, 8120925 #### [facility] [address] [place] [address] ABSCon 12-13-2022 ABSC Gel Interp Negative Normal [facility] Comment on above: Performed By: #### 2 524324, 4256253, 86624848, 3400625, 3811537, 2863696 #### [facility] [address] [place] [address] Blood Bank ID#on 12-13-2022 BBID# [id number] Invalid Interpretation Code [facility] Comment on above: Performed By: #### 2 410452, 0093725, 00294938, 0737929, 9535967, 0486105 #### [facility] [address] [place] [address] Consent for Treatmenton 11-27 Consent for Treatment [id number]#1.0 0CD:127 Normal [facility] H&P Updateon 12-13-2022 H&P Update [id number]#1.0 0CD:127 Normal [facility] Interdisciplinary Note - Arabella n 12-13-2022 Interdisciplinary Note - OT OT six clicks score: 1824=home with ortho 360. Pt completes ADL functional transfers mod A x2 at time of eval with slow pacing. Pt has necessary DME for safety. Plan is to return tomorrow to review full body dressing prior to discharge home. Normal [facility] Main OR Intraoperative Recor don 12-13-2022 Main OR Intraoperative Record IntraOp Document Type FT Summary Primary Physician: Gwyn Garcia DO Finalized Date/Time: 12/13/22 11:05:10 Pt. Name: CECI SPEARS /Sex: 1955 Female Med Rec #: [id number] Physician: Gwyn Garcia DO Financial #: [id number] Pt. Type: A Room/Bed: [place] [address] Admit/Disch: 12/13/22 06:46:46 - Institution: Case Times FT Entry 1 Patient Times In Room 12/13/22 09:31:00 Out Room 12/13/22 11:02:00 Procedure Times Start 12/13/22 10:05:00 Stop 12/13/22 10:54:00 Anesthesia Times Start 12/13/22 09:31:00 Stop 12/13/22 11:02:00 Block Timeout w/ 12/13/22 09:25:00 Anesthesia Last Modified By: Ranjit BAHENA, Linda Calderon 12/13/22 11:01:59 General Comments: BLOCK DONE BY Tammy LONDONO CRNA AT [phone], ASSISTED BY Deena ACOSTA RN; HR= 65, O2= 99%; SPINAL DONE BY Tammy LONDONO CRNA AT 0942 -Clarence LOBATO RN Case Attendance FT Entry 1 Entry 2 Entry 3 Case Attendee Jackie ROSENBERG, Gwyn Herrera DO, CST, Magui Powell Role Performed SALES PRODUCT MANAGER Surgeon - Primary CHOPPER FEEDER/SA Time In 12/13/22 09:31:00 12/13/22 09:31:00 12/13/22 09:31:00 Time Out 12/13/22 11:02:00 12/13/22 10:51:00 12/13/22 11:02:00 Procedure KNEE TOTAL KNEE TOTAL KNEE TOTAL ARTHROPLASTY(Left) ARTHROPLASTY(Left) ARTHROPLASTY(Left) Comments DR. KC SUPERVISING Last Modified By: Ranjit BAHENA, Linda Lobato RN, Linda Lobato RN, Linda Calderon 12/13/22 Nuris Calderon 12/13/22 Nuris Calderon 12/13/22 11:02:00 11:02:00 11:02:00 Entry 4 Entry 5 Entry 6 Case Attendee Ranjit BAHENA, Dennis Irwin, Luci Caledron Role Performed Or Rn - Primary Scrub - Primary Staff - Other Time In 12/13/22 09:31:00 12/13/22 09:31:00 12/13/22 09:31:00 Time Out 12/13/22 11:02:00 12/13/22 11:02:00 12/13/22 11:02:00 Procedure KNEE TOTAL KNEE TOTAL KNEE TOTAL ARTHROPLASTY(Left) ARTHROPLASTY(Left) ARTHROPLASTY(Left) Comments 2ND SCRUB Last Modified By: Ranjit RN, Linda Lobato RN, Linda Lobato RN, Linda Calderon 12/13/22 Nuris Calderon 12/13/22 Nuris Calderon 12/13/22 11:02:00 11:02:00 11:02:00 Entry 7 Case [...] Participants Arun Londono CRNA, Jay LAGOS, Magui E, Ranjit BAHENA, Linda Calderon, Dennis Goff, Luci Catalan, Violette BAHENA, Erick Chester Time Out Complete 12/13/22 10:02:00 Outcomes Met? Yes Last Modified By: Ranjit BAHENA, Linda Calderon 12/13/22 10:14:33 Post-Care Text: The patient is [...] thermal o (more content not included)... Normal [id number]\.br\ Usage Data FT \.br\ Implant Site Knee L Knee L Knee L\.br\ Implant Site Comment \.br\ Quantity 1 1 1\.br\ Implant/Explant Date \.br\ Implanted By Gwyn Garcia DO, DO, Michael T Powers DO, Michael T\.br\ Explant Reason \.br\ Biological Implants \.br\ Biological Source \.br\ Donor Number \.br\ MR Classification Unknown Unknown\.br\ Temperature \.br\ Reconstitution \.br\ Method \.br\ Outcomes Met? Yes Yes Yes\.br\ Department Coordinator Model \.br\ Number \.br\ Last Modified By: [...] CEMENTED AOX\.br\ Serial Number \.br\ Lot Number [id number]\.br\ Load Number \.br\ Department Coordinator DEPUY DEPUY DEPUY\.br\ Catalog ?# [id number] [id number] [...] Method \.br\ Outcomes Met? Yes Yes Yes\.br\ Department Coordinator Model \.br\ Number \.br\ Last Modified By: [...] Yes\.br\ Last Modified By: Linda Lobato RN\.br\ Nuirs P 12/13/22\.br\ 10:21:54\.br\ Post-Care Text: \.br\ The patient is free from signs and symptoms of injury caused by extraneous objects The patient is free from\.br\ signs and symptoms of infection\.br\ General Comments: \.br\ SPECIMEN: LEFT KNEE BONE AND SOFT TISSUE -V. SHRUTI LOBATO\.br\. br\ Temperature Control \.br\ Entry 1 \.br\ Temperature Control MISTRAL FORCED AIR Quantity 1\.br\ Aid WARMING SYSTEM UNIT\.br\ Fluid/[place] Unit Mistral warming system Setting 43/HIGH\.br\ Body [...] By: \.br\ Linda Lobato RN 12/13/22 11:05 [facility] Main OR PACU I Recordon 11-27 Main OR PACU I Record PACU Phase I Document Type FT Summary Primary Physician: Gwyn Garcia DO Finalized Date/Time: 12/13/22 13:11:19 Pt. Name: CECI SPEARS./Sex: 1955 Female Med Rec #: [id number] Physician: Gwyn Garcia DO Financial #: [id number] Pt. Type: I Room/Bed: [place] [address] Admit/Disch: 12/13/22 06:46:46 - Institution: Case Times [...] By: Rachel Shaver I 12/13/22 13:11 Normal [facility] Main OR Preoperative Recordo n 12-13-2022 Main OR Preoperative Record PreOp Document Type FT Summary Primary Physician: Gwyn Garcia DO Finalized Date/Time: 12/13/22 10:22:35 Pt. Name: CECI SPEARS/Sex: 1955 Female Med Rec #: [id number] Physician: Gwyn Garcia DO Financial #: [id number] Pt. Type: Room/Bed: [place] [address] Admit/Disch: 12/13/22 06:46:46 - Institution: Case Times [...] By: Linda Lobato RN 12/13/22 10:22 Normal [facility] Monitor Recordon 12-13-2022 Monitor Record [id number]#1. 00CD:127 Normal [facility] Monitor Record [id number]#1. 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 The Hart Simplex cement was mixed. All components were [...] patient's condition satisfactory Wesley Conte Dictated: 12/13/2022 [id number] Transcribed: 12/13/2022 cc:Camille Williamson M.D. [facility] Comment on above: Result Comment: Elec [...] Room in stable and satisfactory condition.. Normal [facility] Comment on above: Result Comment: Elec tronically Signed By: Gwyn Garcia DO\.br\Date and Time Signed: 12/13/22 11:01 EDT Progress Note-Physicianon Progress Note-Physician Patient: CECI SPEARS Age: 67 years Sex: Female : 1955 Associated Diagnoses: None Author: MD Margot, Andrew Browne Postoperative Information Postoperative disposition: Postoperative disposition: To PACU. Optimetrix number: Optimetrix number [id number]. Anesthetic utilized: General. Health Status Allergies: Allergic [...] when meets criteria ( To home ). [facility] Comment on above: Result Comment: Elec tronically Signed By: MD Margot, Andrew Browne\.br\Date and Time Signed: 12/13/22 15:02 EDT Progress Note-Physician Patient: CECI SPEARS Age: 67 years Sex: Female : 1955 Associated Diagnoses: None Author: MD Margot, Andrew Browne Preoperative Information Time patient last ate or [...] BID, # 20 cap(s), Refills(s) 0, Pharmacy: [facility]/pharmacy #6177, 160, cm, 08/09/22 5:49:00 EST, Height/Length Dosing, 114.3, kg, 08/09/22 5:49:00 EST, Weight Dosing Colace 100 mg Cap: 100 mg = 1 cap(s), Oral, BID, # 20 cap(s), Refills(s) 0, Pharmacy: [facility]/pharmacy #6177, 160, cm, 08/09/22 5:49:00 EST, Height/Length Dosing, 114.3, kg, 08/09/22 5:49:00 EST, Weight Dosing Keflex 500 mg Cap: 500 mg = 1 cap(s), Oral, QID, Start the day after knee surgery, X 5 day(s), # 20 cap(s), Refills(s) 0, Pharmacy: [facility]/pharmacy #6177, 160, cm, 08/09/22 5:49:00 EST, Height/Length Dosing, 114.3, kg, 08/09/22 5:49:00 EST, Weight Dosing Percocet 5 mg-325 mg oral tablet: See Instructions, 50 tab(s), Refill(s) 0, Take one to two every 4 hours as needed for pain from knee surgery, [facility]/pharmacy #6177, 160, cm, 08/09/22 5:49:00 EST, Height/Length Dosing, 114.3, kg, 08/09/22 5:49:00 EST, Weight Dosing Percocet 5 mg-325 mg oral tablet: See Instructions, 50 tab(s), Refill(s) 0, take one to two every 4 hours as needed for knee replacement pain, [facility]/pharmacy #6177, 160, cm, 08/09/22 5:49:00 EST, Height/Length Dosing, 114.3, kg, 08/09/22 5:49:00 EST, Weight Dosing aspirin 325 mg Tab: 325 mg = 1 tab(s), Oral, Daily, Start the day after knee surgery, X 30 day(s), # 30 tab(s), Refills(s) 0, Pharmacy: [facility]/pharmacy #6177, 160, cm, 08/09/22 5:49:00 EST, Height/Length Dosing, 114.3, kg, 08/09/22 5:49:00 EST, Weight Dosing Documented Medications Documented levothyroxine 137 mcg (0.137 mg) Tab: 137 mcg = 1 tab(s), Oral, Daily, Refills(s) 0, Thyroid metoprolol 25 mg ER Tab: 25 mg = 1 tab(s), Oral, Daily, High blood pressure Problem list: All Problems Hypothyroid / SNOMED CT 45004103 / Confirmed Knee osteoarthritis / SNOMED [place] [address] (more content not included)... Normal [facility] Comment on above: Result Comment: Elec tronically Signed By: MD Margot, Andrew Browne\.br\Date and Time Signed: 12/13/22 15:00 EDT Urinalysison 12-13-2022 Bacteria LM Ql (Urine sed) TRACE Normal Trace [facility] Comment on above: Performed By: #### 1 [id number] #### [facility] [address] [place] [address] Bilirubin Ql (U) Negative Normal Negative [facility] Comment on above: Performed By: #### 1 [id number] #### [facility] [address] [place] [address] Clarity (U) CLEAR Normal Clear [facility] Comment on above: Performed By: #### 1 [id number] #### [facility] [address] [place] [address] Color (U) YELLOW Normal Yellow [facility] Comment on above: Performed By: #### 1 [id number] #### [facility] [address] [place] [address] Epithelial cells.squamous LM.HPF (Urine sed) [#/Area] 0-2 Normal 0-2 [facility] Comment on above: Performed By: #### 1 [id number] #### [facility] [address] [place] [address] Glucose Test strip (U) [Mass/Vol] Negative Normal Negative [facility] Comment on above: Performed By: #### 1 [id number] #### [facility] [address] [place] [address] Hemoglobin Ql (U) Negative Normal Negative [facility] Comment on above: Performed By: #### 1 [id number] #### [facility] [address] [place] [address] Ketones (U) [Mass/Vol] Negative Normal Negative [facility] Comment on above: Performed By: #### 1 [id number] #### [facility] [address] [place] [address] Heber.plasma/Lith ium.RBC (Bld) [Mass ratio] 0-3 Normal 0-3 [facility] Comment on above: Performed By: #### 1 [id number] #### [facility] [address] [place] [address] Mucus Ql (Urine sed) TRACE Normal [facility] Comment on above: Performed By: #### 1 [id number] #### [facility] [address] [place] [address] Nitrite Ql (U) Negative Normal Negative [facility] Comment on above: Performed By: #### 1 [id number] #### [facility] [address] [place] [address] pH (U) 6.0 [pH] Invalid Interpretation Code 5.0-9.0 [facility] Comment on above: Performed By: #### 1 [id number] #### [facility] [address] [place] [address] Protein (U) [Mass/Vol] Negative Normal Negative [facility] Comment on above: Performed By: #### 1 [id number] #### [facility] [address] [place] [address] Specific gravity (U) [Rel density] 1.020 Invalid Interpretation Code 1.005-1.030 [facility] Comment on above: Performed By: #### 1 [id number] #### [facility] [address] [place] [address] Type of Urine collection method Clean Catch Normal [facility] Comment on above: Performed By: #### 1 [id number] #### [facility] [address] [place] [address] Urobilinogen Qn (U) 0.2 {Tyson'U}/dL Normal 0.0-1.0 [facility] Comment on above: Performed By: #### 1 [id number] #### [facility] [address] [place] [address] WBC Auto Ql (U) 1+ Abnormal Negative [facility] Comment on above: Performed By: #### 1 [id number] #### [facility] [address] [place] [address] WBC LM.HPF (Urine sed) [#/Area] 6-15 Abnormal 0-5 [facility] Comment on above: Performed By: #### 1 [id number] #### [facility] [address] [place] [address] XR Knee 1 or 2 Views Lefton [...] [place] Technologist: JACKIE Technical Comments Radiation Dose: Kar in mGy = na DAP = na Normal [facility] Inpatient Patient Summaryon 12-08-2022 Inpatient Patient Summary [address] [address] [facility] Clinical Discharge Instructions PERSON INFORMATION Name: CECI SPEARS [facility]#:[id number] PHYSICIANS Admitting Physician: Gwyn Garcia DO Attending Physician: Gwyn Garcia DO PCP: CAMILLE WILLIAMSON MD Discharge Diagnosis: Localized osteoarthritis of left knee Comment: PATIENT EDUCATION INFORMATION Instructions: Cam - Total Knee Arthroplasty (CUSTOM) Medication Leaflets: Follow up: With: Address: When: Gwyn Garcia [address] [place], [place] [id number] [facility] (1) Comments: Keep scheduled appointment Type Location Start [facility] Surgery [facility] Surgical Services 12/13/2022 10:00 AM 12/13/2022 11:15 [...] Tablets By Mouth every day. Comment: Normal [facility] Outpatient Surgery Discharge Instructionon 12-08-2022 Outpatient Surgery Discharge Instruction [address] [address] Patient Discharge Instructions PERSON INFORMATION Name: CECI SPEARS Date of : 1955 Current Date: 12/08/2022 15:42:00 PHYSICIANS Admitting Physician: Gwyn Garcia DO Discharge Diagnosis: Localized osteoarthritis of left knee CECI SPEARS has been given the following list of [...] Follow up: With: Address: When: Gwyn Garcia [address] [place] [id number] Business (1) Comments: Keep scheduled appointment Type Location Start [facility] Surgery [facility] Surgical Services 12/13/2022 10:00 AM 12/13/2022 11:15 [...] to serve you. Thank you for choosing [facility] HERE ARE THE MEDICATION CHANGES THAT OCCURRED [...] Mouth every day. PATIENT EDUCATION INFORMATION Instructions: [place], [place] [facility] DISCHARGE INSTRUCTIONS TOTAL KNEE [...] or eran (more content not included)... Normal [facility] Outside Labson 12-07-2022 Outside Labs [id number]#1. 00CD:127 [facility] Consent for Procedure/Surger yon 12-06-2022 Consent for Procedure/Surgery [id number]#1. 00CD:127 Normal [facility] Progress Note-Physicianon Progress Note-Physician Patient: CECI SPEARS [...] BID, # 20 cap(s), Refills(s) 0, Pharmacy: [facility]/pharmacy #[id number], 160, cm, 08/09/22 5:49:00 EST, Height/Length Dosing, 114.3, kg, 08/09/22 5:49:00 EST, Weight Dosing Keflex 500 mg Cap: 500 mg = 1 cap(s), Oral, QID, Start the day after knee replacement surgery, X 5 day(s), # 20 cap(s), Refills(s) 0, [id number], 160, cm, 08/09/22 5:49:00 EST, Height/Length Dosing, 114.3, kg, 08/09/22 5:49:00 EST, Weight Dosing Percocet 5 mg-325 mg oral tablet: See Instructions, 50 tab(s), Refill(s) 0, take one to two every 4 hours as needed for knee replacement pain, [facility]/pharmacy #[id number], 160, cm, 08/09/22 5:49:00 EST, Height/Length Dosing, 114.3, kg, 08/09/22 5:49:00 EST, Weight Dosing aspirin 325 mg Tab: 325 mg = 1 tab(s), Oral, Daily, Start the day after knee replacement surgery, X 30 day(s), # 30 tab(s), Refills(s) 0, [id number], 160, cm, 08/09/22 5:49:00 EST, [...] list: All Problems Hypothyroid / SNOMED CT 30736635 / Confirmed Knee osteoarthritis / SNOMED CT 600351967 / Confirmed Resolved: History of breast cancer / SNOMED CT 2814458360 Histories Past Medical History: No active or resolved past medical history items have been selected or recorded. Family History: (more content not included)... Normal [facility] Comment on above: Result Comment: Elec tronically Signed By: Cristóbal Gunn DO, Michoacano Muhammad\.param\Date and Time Signed: 09/05/22 13:16 EST Progress Note-Physician Patient: CECI SPEARS Age: 67 years Sex: Female : 1955 Associated Diagnoses: None Author: Michoacano Ambrocio Jr, DO Postoperative Information Post Operative Note: Post Anesthesia Care Unit. Anesthetic utilized: General. Health Status Allergies: Allergic Reactions (Selected) No Known Medication Allergies Problem list: All Problems Hypothyroid / SNOMED CT 11773023 / Confirmed Knee osteoarthritis / SNOMED CT 916404518 / Confirmed Resolved: History of breast cancer / SNOMED CT 6712895196 Physical Examination Vital Signs 08/30/2022 14:00 EST [...] EST Ap (more content not included)... Normal [facility] Comment on above: Result Comment: Elec tronically Signed By: Cristóbal Gunn DO, [place]oacano Muhammad\.br\Date and Time Signed: 09/05/22 13:15 EST Coding Summary.on 09-02-2022 Coding Summary. CD:[id number] Gh 0bWw+PGhlYWQ+FO5VOEVeY 21evLYcgY7EY8mDIV4SNWS XQMMQHY8FPJ3gnWL8THewN 2VybiAv OryzqJBsJF20XEq6XML0pL daEOmnyB8mgBVpJ4b9FpQw AW61tL22VOjcANEyNbC6Zf ZpbjsgbWFy Q3cwVeEenNEyHfu+PHRhYm xlIHdpZHRoPScxMDAlJyBz hOwhYW8gCf7zQFGaQVQgkH xhcHNlOiBj u1hlJFMuRDvgIJ1yfKmeF1 RsmXV1NNCkl3s7Zp70fTC+ XJAkYZU5pFbbJFxvb294Dz Tzs4okWAR0 iTVnAOlwKIJ6N02kg2M5ZG AfEQUhFGY1zMO5tV5gpPmu btwbH2QxhRLhSxL2UGX9rJ TqcV2bhSff jxsvvM4sSup+W54CSR2MUJ LUED4XPyc4A0OmDzsdzOQ+ EN74VJDtAK46xASlqRZnl0 hfsPx9AfWb YYBmQJH3kWnvNThlp1NmLT KoN20tuVUvv7J7WFMhtJlj zHWcAxIjkCF6aB2eJGhail lkw2edtyat Cqbfb0cnzh12dC72I03cSY tuEKXlETT2CUYvASBciKfa eo2spF8bOc4+PDpjy6uqe6 nsaQy6DaVj PDHamqGlzIpkBPL4b4RgAe 37T5SlfIytg4PtCff1ea12 kUEah9Q2pCZ0XJvwMDIbeA 7bUSrnVtQ3 NGMeGyYxjA55aWJvPJtrHz 3xuFwdoGjwYG8cIGXmfizg ZDRkjO1iPILvdKIhhAwiQY 4wNTBpbjtm m524OkOyVVD0PEMxpGMpP5 ZqrG6kEqGsLTWeKXDxP3Yg vHQsNCcgK085LBwnUoC2YY SxbnPvF7Ep AXAhnUjoKbH5p3Q9Yd7Kt6 JzbxhbVSZ2UQlmCWElQwI5 WsHpLbB5B0NyCvi8KBByjR eeLU8uD8La CJHmlmdgckrnbBE2RATrJY BedX02uNLsFPqzRb1mr4Y4 j606QOFvUPUryM54Cc5vcL ogMTBwdCBU zD7pqcjww8pnjqmhRcQaZS QlDVu6GHy5URXkzQtoPrIu WRR2IgH8OBH0jVYpgI0pwB bvnloogT2a Oyc+M54vpU5wHDU3VJR6hh odUWXsuoSrCK29EA22T2Ke PjwvdGFibGU+PGRpdiBzdH wbRF5tDwWd a7nhw8DeOJlyO0IxYTJcJH ecUzr9YDUjQGO2zHN8fQ9v RUCxOFaoa3N2kHA6H8Iyfx Xntv6qr7va XMSzFOobB96doHXwo2N9IX UbiAE7ZEYubMrqXgBpdZ05 Oyc+RCFwmPloz5YtVwljw1 izj8sjqIp4 PhQtPRNwaiEfrWhnMRQ8x5 IkGg97O37yXNyfIWOoFDAh EEEfPIZqxDieis2qmF1lKq 8+PGNvbCB3 kLY0fQ1eRFBkRgK7YRzfU6 25QtZelXFhRyokp6bxz2hs rId5KiRhJEIaawOwfAhgVC K1r3RpDw75 I23oYMlmFQYwRMVoLLVeBC StbIvzoy4piK2bJk2+PC9j d2orgb81mI02qFB+PHRkIH F8kOveAFlv LJHnfL5pFMbbIwL6OILaSy SzhU52iQMbDKfrBo7grPbl cZglTO0cFYMswutzz090Rs Ehn1tjSXUz nFVlUTycJYM8W79xn4B6JI MkZYFqFVB5oJV9hN5jpYky bjogbGVmdDsgdmVydGljYW ueRYjbM682 IHRvcDsnPlBhdGllbnQgTm KlUFu3T9VxIjg5PVKtvKvp DR0yyOXsERpyZa6ozRtgfU ytVA8qUUJf rsrac598SpKcg5iqUTOlcD OoJCvrQHB1J82db6X5KNUk CWQeIKH6aJW4tZ0spMhqrh ogbGVmdDsg fgMorDeaAQvmMBruC918DN RvcDsnPkJpcnRoIERhdGU6 BO93VL22aNTem4P5bFM1J4 BhZGRpbmct pojrqWF0EUGkGKZgqS97Qa 7adVgsMc0qCUYrHHZ3MNEo vERvL9MaxQ2vWiYzMOFfEV EsK6QrzAGy URciG983IUplXhQ4ASXkbp UzO1EkZQQvkKzuPsO4k5W5 Jq1EE0N1VJ42XP76lLAvw8 A7oNQ5Q0Xd YFGsbhbpcyewuKZ2QMIyCI YopU46As9rwHcnOr4mRVAv ZFE6NRVwoRLmX6NihS9mOb AjMDAwMDAw N6FsmYRoGHizY711ZLofKt W0TPCcimRvT1CgPLIpjCts SqC8x4T8Lr3YNEi9OQ92HG 82kHYjc6R9 oWW0V7MbYMUsrgxiprszdI M6FWDoTEMlcP16Tf8vkMhs Rt9tHHUuLQZ5HQWydEEwI7 SdaY5rJvIe ABMhIEWuT7EqfWDqFEgiW6 34OZjrHrM7EDXnxtXmY7Je GRPmtBpyHeH0p9T2Rx5QPJ CdCD56WFD4 dUF0DR83UW66U3AyCrjhxI FibGU+PHRhYmxlIHdpZHRo BDbqSFAeMvDseSjbUP2bOg 9yZGVyLWNv oMghkZQbOgQmg6jwNJWtJP whMT0lfYcsE9UktIE0FBFy d0s6Yw90M57sJ3EunJW+PG XuaZA5fMR5 eC4hQqGvCcQ6ISwjV010Px QnqXGeAbwpl5gbo7izvQn0 YpQ1FYFwsmAadWuqSAK5p9 QeRs45Y20f IHdpZHRoPSIxNSUiIHZhbG msfu9txW8iBn5+PGNvbCB3 uGG2dY4dDwZyShO2UWmtM3 49InRvcCIv Mvcad3oye8eboSa4PzKdRV ItnpKchMtyRLJ5k6SlGn36 W2HfdYesr1RbUtt1kq99qD Moq8N4rOJ3 L6JuSRVqkjmifSQzuGmpTN 9lPXRldwdmXPXqqA2sJKFo Z5q6BrIbMfB6SFtcU8Zbky V5DUZypMDw JYxkZOH2I08ke8H6MYFxNL WlSDK1fZB2eZ9krJtihynh bGVmdDsgdmVydGljYWwtYW wvV948QYAj jBzwQQNbxR7jNCBcyOUbjY qyHT6lTLEjxvslImRUTBYF DJANNZHvVPLMQ6YXJH15YV 05hQMyu4D4 uSK8S8JzOSXettqfuqgyeV A1APPkXEWwtI13oJDoHJbh Wh1fb5I1t140DNIzYLDmdM 47Rg4zcGqd KWBfjZCIhN5jaarvp0eoex aoRxYoYHObDJv4KKw5AXWx kXjwGgCrRPN9OxZ7ZDQ1fF HivO4zeErw jsehpG2bUyl+MDYvMDUvMT v4VEfmkEQ+ENQoRNF5gRpb WSnjGRUnrB4gAPShX3r7Be BpWnY3XQfj O5KbCDUkpkilLj80lC3iPu ByZgR3SIpbX0YcwgD2JHDo yFNbSThdTDI3V22ew2Z1UE MwMDAwMDA7 mXY0sG8svGwvikoofGVqgY xzbrCacMqzCQngZPqdE055 IPSpkOxxWmQ7OOolPTNlGQ 47QL91gSOd a0Y6vIG9E5VqKDMisivexp gikCS5DSXnFYQlzO37wUMz KRuiXu3fh4E2l605MECwVO DveY58Jr9r iWerIZTdqLXQqR6kxeary0 maenthZqFgVDUbNBb4YXi9 ZXXouOtoFrKwCMG8UgG1XS K3bHSfpP0g rYogystgfB2pBjc+RmVtYW fnRC37IM25lTBzs4N1oCI8 N8BsRSAwmazzuosdkTT7TJ SuTBThmX58 rENoVPurIh0rj7C5z824LJ BxJROuqC49Se2dpOkvIKGn lRPGzB7jxbyts5rhcoytDo AwMDAwMDt0 LEj5ZSHkgZyvAzAtNWP8Cs J9UCM1aQLnnG8lbVjuocbu kN1cNvr+JV5uLAPlWB32QA 13HM07N2Gj PjwvdGFibGU+PHRhYmxlIH dpZHRoPScxMDAlJyBzdHls FF0sTv2yQATaETAsaCqlrT PrZiUpe8ev IGMlOBnmTR3nkXksN1AfqH T8QBDng2q4Rp22A73gP8Hd dXA+JAKkwGG2vCU2mK0dBi XhOpT6GQlk O997GfYeyUIyWeaor7zit0 ehpCe8PgSsXTOdryXftYkx QXM6u7GcCe39H13xGKqbKV RoPSIyMCUi RDAycWgbhs3tlL6jPe4+PG OitFV3wSA6pA3nOwUrJlG0 MZlxM323WqPvjMXrXfbnA8 9fK0PfyPB+ VRCeEft2QDOudEygCT1urB PbQShkMf7tWJG3NcOnZxYc QLtpX2DhKOPqgoyfwehniX C1IUVrSRGg xG83Zg5zhQhqGe9pPJGaEX X6PWAxpQDzU5VbvN3dEkNs VYEgOLYwS1HqvJBnDLzlU7 12XVknGwR2 UVTtkrRzV9OyMSPhrZotTo I6b7Q7Vf5ItEvwqPSeJX5m WhNwYSd3E2TaJur7KMHcbO klUJ1tnFHk UXhaIv7alTsyxCmzBK3kXE Bgejjxz292HjVtz4iaLIEu hVIsOKvrFOZ7X49bf3Q3XT MwMDAwMDA7 sUV2vX3roAvksqihgUBesC kddaChvBfxBOquEXiuP912 IUMlnEcqMzAYWij9B9ZrHo n7GJZjiDvy TS2ahEPlLXezNv4ioMbqrG esGG2bAIJdwviho170PxJv o8fgEPHngLGoMXcrMEE1M7 1la1P5SYZk MIJoKFQ9cAA0uJ5ubXuhxi ogbGVmdDsgdmVydGljYWwt EFebF814GZLjaSmjGx8BAv a8G8JvUfm3 FALtdKvaAV1duSXuRDjjDo 3whIgdxRipRO1lZARmcusj i196MzNzr4nrYOGxzLZsTU exZFH6U60t k3F3WWUjTPEuFFV3fDJ8uS 1hbGlnbjogbGVmdDsgdmVy bTefKPdeDSdtD804TPGfoR snPlBheWVy OjwvdGQ+FZ05am01J5XpKp qdEzv7IRDkUQC3nGN1sW0a ADJdOCela7Y6zEY3Q4Lwsz Idgv8hg6in YXBz (more content not included)... Normal [facility] IntraOperative Documentson 0 09-02-2022 IntraOperative Documents [id number]#1.0 0CD:127 Normal [facility] IntraOperative Documentson 0 09-01-2022 IntraOperative Documents [id number]#1. 00CD:127 Normal [facility] Auto Diffon 08-31-2022 Basophils/100 WBC (Bld) 0.2 % Normal 0.0-2.0 [facility] Comment on above: Order Comment: Order Added by Discern Expert. Performed By: #### 2 038316, 7666255, 48524359, 3556498, 1250682, 3480590 #### [facility] [address] [place] [address] Basophils/Leukocyte s Auto (Bld) [Pure # fraction] 0.0 E9/L Normal 0.0-0.2 [facility] Comment on above: Order Comment: Order Added by Discern Expert. Performed By: #### 2 449432, 6844549, 20510400, 6024911, 8989241, 6517089 #### [facility] [address] [place] [address] Eosinophils/100 WBC (Bld) 0.1 % Normal 0.0-8.0 [facility] Comment on above: Order Comment: Order Added by Discern Expert. Performed By: #### 2 650000, 6169205, 50658697, 6290983, 9728714, 9755942 #### [facility] [address] [place] [address] Eosinophils/Leukocy julia Auto (Bld) [Pure # fraction] 0.0 E9/L Normal 0.0-0.5 [facility] Comment on above: Order Comment: Order Added by Honey Expert. Performed By: #### 2 316000, 1274546, 56875290, 2591847, 4233014, 1591205 #### [facility] [address] [place] [address] Lymphocytes/100 WBC (Bld) 10.8 % Low 14.0-50.0 [facility] Comment on above: Order Comment: Order Added by Honey Expert. Performed By: #### 2 049534, 5648004, 95761330, 9838188, 9444793, 3588228 #### [facility] [address] [place] [address] Lymphocytes/Leukocy julia Auto (Bld) [Pure # fraction] 1.0 E9/L Normal 1.0-4.0 [facility] Comment on above: Order Comment: Order Added by Honey Expert. Performed By: #### 2 578858, 7494301, 81532042, 6819375, 4370663, 3703090 #### [facility] [address] [place] [address] Monocytes/100 WBC (Bld) 8.1 % Normal 4.0-14.0 [facility] Comment on above: Order Comment: Order Added by Discern Expert. Performed By: #### 2 757528, 6882208, 22323826, 5917156, 5068018, 0042302 #### [facility] [address] [place] [address] Monocytes/Leukocyte s Auto (Bld) [Pure # fraction] 0.8 E9/L Normal 0.2-1.0 [facility] Comment on above: Order Comment: Order Added by Discern Expert. Performed By: #### 2 642247, 1054334, 84506793, 2341137, 7921311, 9983102 #### [facility] [address] [place] [address] Neutrophils/100 WBC (Bld) 80.8 % High 36.0-75.0 [facility] Comment on above: Order Comment: Order Added by Discern Expert. Performed By: #### 2 673996, 9908491, 26497259, 5126277, 7650886, 7751122 #### [facility] [address] [place] [address] Neutrophils/Leukocy julia Auto (Bld) [Pure # fraction] 7.8 E9/L High 2.0-7.5 [facility] Comment on above: Order Comment: Order Added by Discern Expert. Performed By: #### 2 191773, 8861243, 54666347, 4172105, 9169602, 7180692 #### [facility] [address] [place] [address] BUNon 08-31-2022 Urea nitrogen [Mass/Vol] 15 mg/dL Normal 5-21 [facility] Comment on above: Performed By: #### 2 525873, 3699706, 7951031, 1723528, 59460224, 2220094 ####[facility] [address] [place] [address] Blood Bank Slipon 08-31-2022 Blood Bank Slip [id number]#1. 00CD:127 Normal [facility] CBC w/ Auto Diffon Erythrocyte distribution width (RBC) [Ratio] 13.9 % Normal 10.9-14.2 [facility] Comment on above: Performed By: #### 2 714935, 0819478, 7342051, 0554047, 94965295, 8825063 ####[place] [address] [place] [address] Hematocrit (Bld) [Volume fraction] 41.7 % Normal 34.0-46.0 [facility] Comment on above: Performed By: #### 2 560601, 6532658, 0800511, 4429321, 35002366, 1854054 ####[place] [address]457 Hemoglobin (Bld) [Mass/Vol] 14.0 g/dL Normal 12.0-16.0 [facility] Comment on above: Performed By: #### 2 359521, 8602546, 3005653, 4412322, 94180210, 6524527 ####[place] 2[address]457 MCH (RBC) [Entitic mass] 29.7 pg Normal 27.0-34.0 [facility] Comment on above: Performed By: #### 2 375491, 5406850, 0595095, 9945735, 62781147, 4425772 ####[place] [address]457 MCHC (RBC) [Mass/Vol] 33.7 g/dL Normal 31.4-36.0 [facility] Comment on above: Performed By: #### 2 756296, 4240292, 3606361, 2667918, 12642248, 4823183 ####[address] [address] MCV (RBC) [Entitic vol] 88.2 fL Normal 80.0-100.0 [facility] Comment on above: Performed By: #### 2 942116, 3828816, 5732572, 7412422, 94554733, 4340203 ####[place] [address] Platelet mean volume (Bld) [Entitic vol] 7.9 fL Normal 6.4-10.8 [facility] Comment on above: Performed By: #### 2 819269, 2180423, 4398488, 7882548, 41575491, 9373903 ####[facility] [address] [place] [address] Platelets (Bld) [#/Vol] 240.0 E9/L Normal 150.0-500.0 [facility] Comment on above: Performed By: #### 2 201747, 1427812, 1517054, 2305202, 89510946, 8121974 ####[facility] [address] [place] [address] RBC (Bld) [#/Vol] 4.7 E12/L Normal 4.3-5.9 [facility] Comment on above: Performed By: #### 2 844890, 8368965, 5545328, 8328388, 35779013, 8838925 ####[facility] [address] [place] [address] WBC corrected for nucl RBC Auto (Bld) [#/Vol] 9.7 E9/L Normal 4.0-11.0 [facility] Comment on above: Performed By: #### 2 194918, 0623141, 2534493, 6928641, 95655818, 2132598 ####[facility] [address] [place] [address] CHEMISTRYOrdered By: SYSTEM SYSTEM on 08-31-2022 Anion [...] rate/Area] mL/min/1.73 m2 Normal >=59mL/min/1.73 m2 [facility] Chem S GFR/1.73 sq M.predicted among non-blacks MDRD (S/P/Bld) [Vol rate/Area] mL/min/1.73 m2 Normal >=59mL/min/1.73 m2 [facility] Chem S Potassium [Moles/Vol] 4.2 mmol/L Normal 3.5 - 5.3 mmol/L [facility] Remisol Sodium [Moles/Vol] 134 mmol/L Low 135 - 145 mmol/L [facility] Remisol Urea nitrogen [Mass/Vol] 15 mg/dL Normal 5 - 21 mg/dL [facility] Remisol Consent for Anesthesiaon Consent for Anesthesia [id number]#1.0 0CD:127 Normal [facility] Creatinineon 08-31-2022 Creatinine [Mass/Vol] 0.8 mg/dL Normal 0.5-1.3 [facility] Comment on above: Performed By: #### 2 330958, 4743268, 1712515, 9819792, 95793538, 1893906 ####[facility] [address] [place] [address] Discharge Instructionson Discharge Instructions [id number]#1 .00CD:127 Normal [facility] Discharge Note-Nursingon Discharge Note-Nursing CECI SPEARS :1955 Visit Date:08/30/2022 Inpatient Discharge Instructions Your [...] AM EST Comments: Keep scheduled appointment Where: [address] [place], [place] [id number] Business (1) Follow Up with CAMILLE WILLIAMSON When: 09/03/2022 09:00 AM EST Where: [address] [place], [place] [id number] Business (1) Medications What How Much When Why Instructions Next Dose Unchanged acetaminophen-oxycodon e (Percocet 5 mg-325 mg oral tablet) See instructions Localized osteoarthritis of right knee take one to two every 4 hours as needed for knee replacement pain Pickup at [facility]/pharmacy #[id number] NEEDED FOR PAIN, AFTER 10 AM Unchanged aspirin (aspirin 325 mg Tab) 1 Tablets By Mouth Every day Duration: 30 Days Start the day after knee replacement surgery Pickup at [facility]/pharmacy #[id number] 09/01 @ 9 AM Unchanged cephalexin (Keflex 500 mg Cap) 1 Capsules By Mouth 4 times a day Duration: 5 Days Start the day after knee replacement surgery Pickup at [facility]/pharmacy #6177 08/31 @ 12 PM Unchanged docusate (Colace 100 mg Cap) 1 Capsules By Mouth 2 times a day Pickup at [facility]/pharmacy #6177 08/31 @ 9 PM Unchanged levothyroxine (levothyroxine 137 mcg (0.137 mg) Tab) 1 Tablets By Mouth Every day 09/01 @ 9 AM Unchanged metoprolol (metoprolol 25 mg ER Tab) 1 Tablets By Mouth Every day 09/01 @ 9 AM [id number] [address], [place] [id number] [phone] Test Results CBC BMP WBC: 9.7 E9/L [...] HIGH [6194-1-010] (2), 08/30/2022, Unknown - RODDY: {[id number]{10} [id number] [employer] [place], [place] [facility] DISCHARGE INSTRUCTIONS TOTAL KNEE ARTHROPLASTY INCISION CARE: Mepilex dressing can get wet with showers. Please remove 10 days after surgery per instruction sheet. If poly present, please coordinate removal 21 days after surgery with office staff. Please notify the office if any increase i (more content not included)... Normal [facility] HEMATOLOGYOrdered By: SYSTEM SYSTEM on 08-31-2022 Basophils/100 [...] 13.9 % Normal 10.9 - 14.2 % FT [facility] Hematocrit (Bld) [Volume fraction] 41.7 % Normal 34.0 - 46.0 % FT [facility] Hemoglobin (Bld) [Mass/Vol] 14.0 g/dL Normal 12.0 - 16.0 gm/dL FT [facility] MCH (RBC) [Entitic mass] 29.7 pg Normal 27.0 - 34.0 pg FT [facility] MCHC (RBC) [Mass/Vol] 33.7 g/dL Normal 31.4 - 36.0 gm/dL [facility] MCV (RBC) [Entitic vol] 88.2 fL Normal 80.0 - 100.0 fL FT [facility] Platelet mean volume (Bld) [Entitic vol] 7.9 fL Normal 6.4 - 10.8 fL FT [facility] Platelets (Bld) [#/Vol] 240.0 E9/L Normal 150.0 - 500.0 E9/L [facility] HemeAutoSS RBC (Bld) [#/Vol] 4.7 E12/L Normal 4.3 - 5.9 E12/L [facility] WBC corrected for nucl RBC Auto (Bld) [#/Vol] 9.7 E9/L Normal 4.0 - 11.0 E9/L [facility] Interdisciplinary Note - Karsten e Manageron 08-31-2022 Interdisciplinary Note - [employer] to room to discuss DC planning. Patient is awake, alert and oriented. She has no family in room. She is from home, lives with Son. Has family transportation at [place]. Patient verified home DME, insurance and PCP. [...] was requesting to stay over night Normal [facility] Comment on above: Result Comment: Elec tronically Signed By: Lili Wing\.br\Date and Time Signed: 08/31/22 15:12 EST Interdisciplinary Note - Arabella n 08-31-2022 Interdisciplinary Note - OT OT six clicks score 19/24 = HH services. Patient requires Min A [...] OT needs. DC inpatient OT services. Normal [facility] IntraOperative Documentson 0 08-31-2022 IntraOperative Documents [id number] 0CD:127 Normal [facility] Lyteson 08-31-2022 Anion gap [Moles/Vol] 11 mmol/L Normal 6-16 [facility] Comment on above: Performed By: #### 2 [id number], [id number], [id number], [id number], [id number], [id number] ####[facility] [address] [place] [address] Chloride [Moles/Vol] 101 mmol/L Normal 101-111 [facility] Comment on above: Performed By: #### 2 [id number], [id number], [id number], [id number], [id number], [id number] ####[facility] [address] [place] [address] CO2 [Moles/Vol] 26 mmol/L Normal 21-31 [facility] Comment on above: Performed By: #### 2 [id number], [id number], [id number], [id number], [id number], [id number] ####[facility] [address] [place] [address] Potassium [Moles/Vol] 4.2 mmol/L Normal 3.5-5.3 [facility] Comment on above: Performed By: #### 2 139741, 7028865, 8270220, 0696358, 73053310, 1431362 ####[facility] [address] [place] [address] Sodium [Moles/Vol] 134 mmol/L Low 135-145 [facility] Comment on above: Performed By: #### 2 952013, 9997955, 7030546, 7624462, 89716391, 5506509 ####[facility] [address] [place] [address] Operative Reporton Operative Report SURGERY DATE: 08/30/2022 [...] is indicated. Family members are present from [place] to assist with her care perioperatively. Request [...] 2-0 Quill suture closed the subcutaneous tissues. Poly were applied with her thin skin as well as increased BMI. Mepilex dressing with soft roll wrap was provided. Tourniquet was deflated. The patient awakened from anesthesia and transferred to the Recovery Room in stable and satisfactory condition. CASE: Clean and elective SPONGE AND NEEDLE COUNT: Correct SPECIMEN: Bone PATIENT CONDITION: Satisfactory Wesley Conte Dictated: 08/30/2022 [id number] Transcribed: 08/31/2022 cc:Camille Williamson M.D. [facility] Comment on above: Result Comment: Elec [...] the proposed procedure. CHET Wong Dictated: 08/30/2022 [id number] Transcribed: 08/31/2022 [facility] Comment on above: Result Comment: Elec tronically Signed By: Hossein Foster CRNA\.br\Date and Time Signed: 08/31/22 11:17 EST Patient Education - Texton 0 08-31-2022 Patient Education - Text [place], [place] [facility] DISCHARGE INSTRUCTIONS TOTAL KNEE [...] will continue at home, possible with the school bus driver/teacher assistant of Home Health Physical Therapy or [...] too soon, you are considered an impaired drive away driver, and 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 It is therefore advised not to drive until after your first office visit following surgery FOLLOW-UP OFFICE VISIT: __ Gwyn Garcia DO [facility] [address] [place] [address] Reviewed: 12-04 [facility] Preoperative Documentson Preoperative Documents [id number]#1.0 0CD:127 [facility] Progress Note-Physicianon Progress Note-Physician Patient: CECI SPEARS [...] All Problems Knee osteoarthritis / SNOMED CT 253546385 / Confirmed Hypothyroid / SNOMED CT 92367129 / Confirmed Physical Examination Gastrointestinal: Soft, Non-tender. [...] out tomorrow. F/U in 4 weeks.. Normal [facility] Comment on above: Result Comment: Elec tronically Signed By: Gwyn Garcia DO\.br\Date and Time Signed: 08/31/22 07:22 EST eGFRon 08-31-2022 GFR/1.73 sq M.predicted among blacks MDRD (S/P/Bld) [Vol rate/Area] mL/min/{1.73_m2} Normal >=59 [facility] Comment on above: Order Comment: Order added by Discern Expert. Result Comment: eGFR is race adjusted. AA=. Performed By: #### 2 577290, 2673902, 2714539, 1840479, 10068591, 3020770 ####[facility] [address] [place] [address] GFR/1.73 sq M.predicted among non-blacks MDRD (S/P/Bld) [Vol rate/Area] mL/min/{1.73_m2} Normal >=59 [facility] Comment on above: Order Comment: Order added by Discern Expert. Result Comment: Labor Relations Representative taylor kidney disease could be indicated at eGFR's of less than 60 mL/min/1.73m2. Kidney failure is indicated at less than 15 mL/min/1.73m2. Performed By: #### 2 800752, 8407434, 7930824, 4355195, 56062268, 8257285 ####[facility] [address] [place] [address] ABO/Rhon 08-30-2022 ABO/Rh Positive Invalid Interpretation Code [facility] Comment on above: Performed By: #### 2 319766, 7866838, 45230530, 3168894, 6072111, 7461626 #### [facility] [address] [place] [address] ABO/Rh History Checkon 08-30 ABO/Rh History Check Verified Hx Blood Type Normal [facility] Comment on above: Performed By: #### 2 818231, 1617290, 87045600, 6484964, 4231447, 7986223 #### [facility] [address] [place] [address] ABSCon 08-30-2022 ABSC Gel Interp Negative Normal [facility] Comment on above: Performed By: #### 2 016538, 8501385, 83850064, 8607638, 0365473, 2425041 #### [facility] [address] [place] [address] BLOOD BANKOrdered By: Maritza Sepulveda on 08-30-2022 ABO/Rh Interp Positive Invalid Interpretation Code [facility] BB Subsection ABSC Gel Interp Negative (08/30/22 10:25 AM) Normal [facility] BB Subsection Blood Bank ID#on 08-30-2022 BBID# [id number] Invalid Interpretation Code [facility] Comment on above: Performed By: #### 2 684052, 7934116, 98259744, 0687589, 2446722, 0843467 #### [facility] [address] [place] [address] Consent for Treatmenton Consent for Treatment [id number]#1.0 0CD:127 Normal [facility] H&P Updateon 08-30-2022 H&P Update [id number]#1. 00CD:127 Normal [facility] Main OR Intraoperative Recor don 08-30-2022 Main OR Intraoperative Record IntraOp Document Type FT Summary Primary Physician: Gwyn Garcia DO Finalized Date/Time: 09/02/22 08:03:57 Pt. Name: CECI SPEARS/Sex: 1955 Female Med Rec #: [id number] Physician: Gwyn Garcia DO Financial #: [id number] Pt. Type: I Room/Bed: N317/ Admit/Disch: 08/30/22 09:34:47 - 08/31/22 16:41:00 Institution: [...] Gwyn Lobato RN, Linda Calderon Role Performed SALES PRODUCT MANAGER Surgeon - Primary Or Rn - Primary Time In 08/30/22 12:15:00 08/30/22 12:15:00 08/30/22 12:15:00 Time Out 08/30/22 13:45:00 08/30/22 13:33:00 08/30/22 13:45:00 Procedure KNEE TOTAL KNEE TOTAL KNEE TOTAL ARTHROPLASTY(Right) ARTHROPLASTY(Right) ARTHROPLASTY(Right) Comments DR. AMBROCIO SUPERVISING ORIENTATION Last Modified By: Jay CHOPPER FEEDER, Magui Lobato RN, Linda Lobato RN, Linda 09/02/22 08:01:36 Nuris P 08/30/22 Nuris P 08/30/22 13:45:10 13:45:10 Entry 4 Entry 5 Entry 6 Case Attendee Fabian Church RN, Tonya Bergeron CST, Heath Role Performed Or Rn - Primary COAL FEEDER OPERATOR Scrub - Primary Time In 08/30/22 12:15:00 08/30/22 12:15:00 08/30/22 12:15:00 Time Out 08/30/22 13:45:00 08/30/22 13:45:00 08/30/22 13:45:00 Procedure KNEE TOTAL KNEE TOTAL KNEE TOTAL ARTHROPLASTY(Right) ARTHROPLASTY(Right) ARTHROPLASTY(Right) Comments COAL FEEDER OPERATOR STUDENT Last Modified By: Ranjit RN, Linda Lobato RN, Linda Lobato RN, Linda Calderon 08/30/22 Nuris P 08/30/22 Nuris P [...] Linda Lobato RN, Linda Calderon 08/30/22 Nuris Calderon 08/30/22 13:45:10 13:45:10 General Comments: TIFFANIE SAUNDERS - REP FOR DEPUY PRESENT FOR CASE - SHRUTI MEJIA - PRIMARY SCRUB FOR CASE - VSavage LOBATO RNgolf course mechanic Protocols FT Pre-Care Text: Implements protective measures [...] CRNA, Ferrer RN, Ranjit Pappas Terry T, Hord RN, Rubio Castaneda CST, Violette Joe RN, Garth Winslow Lauren R Time Out Complete 08/30/22 12:40:00 Outcomes Met? Yes Last Modified By: Ranjit BAHENA, Linda Calderon 08/30/22 12:47:05 Post-Care Text: The patient is free from signs and symptoms of injury caused by extraneous objects Allergy Information FT Pre-Care Text: Verifies allergies Entry 1 Allergies Reviewed? Yes Allergies Reviewed Self/Patient With Outcomes Met? Yes Last Modified By: Ranjit BAHENA, Linda Calderon 08/30/22 12:37:01 Post-Care Text: The patient received [...] Class 1 - Clean Last Modified By: Ranjit BAHENA, Linda Calderon 08/30/22 13:36:19 General Case Data FT Pre-Care Text: Classifies surgical wound, implements aseptic technique, initiates traffic control Entry 1 Case Information OR OR 4 FT Case Level Level 6 Wound Class 1 - Clean [facility] ASA Class 3 Preop Diagnosis M17.11 - Unil (more content not included)... Normal [facility] Main OR PACU I Recordon Main OR PACU I Record PACU Phase I Document Type FT Summary Primary Physician: Gwyn Garcia DO Finalized Date/Time: 08/30/22 14:52:15 Pt. Name: CECI SPEARS/Sex: 1955 Female Med Rec #: [id number] Physician: Gwyn Garcia DO Financial #: [id number] Pt. Type: A Room/Bed: [facility] Admit/Disch: 08/30/22 09:34:47 - Institution: Case [...] By: Ana Gonzalez RN 08/30/22 14:52 Normal [facility] Main OR Preoperative Recordo n 08-30-2022 Main OR Preoperative Record PreOp Document Type FT Summary Primary Physician: Gwyn Garcia DO Finalized Date/Time: 08/30/22 12:47:27 Pt. Name: CECI SPEARS/Sex: 1955 Female Med Rec #: [id number] Physician: Gwyn Garcia DO Financial #: [id number] Pt. Type: A Room/Bed: Admit/Disch: 08/30/22 09:34:47 [...] By: Linda Lobato RN 08/30/22 12:47 Normal [facility] Monitor Recordon 08-30-2022 Monitor Record [id number]#1. 00CD:127 Normal [facility] Monitor Record [id number]#1. 00CD:127 Normal [facility] Operative Reporton Operative Report Patient: CECI SPEARS [...] Room in stable and satisfactory condition.. Normal [facility] Comment on above: Result Comment: Elec [...] DO Transcribed by: AUSTIN Technologist: IDALIA Normal [facility] Inpatient Patient Summaryon 08-26-2022 Inpatient Patient Summary [address] [id number] [facility] Clinical Discharge Instructions PERSON INFORMATION Name: CECI SPEARS PHYSICIANS Admitting Physician: Gwyn Garcia DO Attending Physician: Gwyn Garcia DO PCP: CAMILLE WILLIAMSON MD Discharge Diagnosis: Localized osteoarthritis of right knee Comment: PATIENT EDUCATION INFORMATION Instructions: Cam - Total Knee Arthroplasty (CUSTOM) Medication Leaflets: Follow up: With: Address: When: Gwyn Garcia [address] [place], [place] [id number] [facility] () Comments: Keep scheduled appointment Type Location Start [facility] Surgery [facility] Surgical Services 08/30/2022 12:30 PM 08/30/2022 1:30 PM Confirmed MEDICATION LIST Medications to Continue with No Changes Other Medications diclofenac (diclofenac sodium 75 mg Oral EC Tab) 1 Tablets By Mouth every day. levothyroxine (levothyroxine 137 mcg (0.137 mg) Tab) 1 Tablets By Mouth every day. Comment: Normal [facility] Outpatient Surgery Discharge Instructionon 08-26-2022 Outpatient Surgery Discharge Instruction [address] [address] Patient Discharge Instructions PERSON INFORMATION Name: CECI SPEARS Date of : 1955 Current Date: 08/26/2022 18:11:21 PHYSICIANS Admitting Physician: Gwyn Garcia DO Discharge Diagnosis: Localized osteoarthritis of right knee CECI SPEARS has been given the following list of [...] THE NEAREST EMERGENCY ROOM OR CALL 911 MARKOS Durand SUSAN, have received the attached patient education materials/instructions and have verbalized understanding: May we do a follow up call? Yes No I was present when discharge instructions were given Patient Signature Date Clinican/Nurse Signature ___ Date Follow up: With: Address: When: Gwyn Garcia [address] [place], [place] [id number] Business (1) Comments: Keep scheduled appointment Type Location Start [facility] Surgery [facility] Surgical Services 08/30/2022 12:30 PM 08/30/2022 1:30 [...] to serve you. Thank you for choosing [facility] HERE ARE THE MEDICATION CHANGES THAT OCCURRED DURING YOUR HOSPITAL STAY Medications to Continue with No Changes Other Medications diclofenac (diclofenac sodium 75 mg Oral EC Tab) 1 Tablets By Mouth every day. levothyroxine (levothyroxine 137 mcg (0.137 mg) Tab) 1 Tablets By Mouth every day. PATIENT EDUCATION INFORMATION Instructions: [place], [place] [facility] DISCHARGE INSTRUCTIONS TOTAL KNEE [...] Physical Therapy (more content not included)... Normal [facility] Consent for Procedure/Surger yon 08-25-2022 Consent for Procedure/Surgery [id number]#1.0 0CD:127 [facility] Immunization Recordson 08-25 Immunization Records [id number]#1.0 0CD:127 [facility] Outside Recordson 08-25-2022 Outside Records [id number]#1.0 0CD:127 [facility] Coding Summary.on 08-12-2022 Coding Summary. CD:[id number]:[id number] Gh 0bWw+PGhlYWQ+ZB5ICNPuQ 20ldDJyaQ0FI3xWCJ0CUGO ARMPZCQ3SLP4byQH7RQhvT 2VybiAv WwjweAGoGS83NEi4VZB8dJ gqKSovlH0qnVTzL6m0YdOp IP22fR01XFfcGKZqTuT1Ih ZpbjsgbWFy D7slQtOwzPTkDta+PHRhYm xlIHdpZHRoPScxMDAlJyBz gUubPS7uGl5aZIBfAJPkxY xhcHNlOiBj r8paBXXjFGdiUJ5cbIyzX9 TguKZ2EMDxq9i7Ka93dLL+ RXKiEDQ2qLbkDGyik674Ce Yfu1bxGNL4 kMNiSJpzGWS8V06ia9D2YP DcKCAmYXF4tNF7iU5cuBed llhzO7AyvLZfXgQ4KMW1sH QngO3pqJeg cbglkE2zOlc+M31EGA2ADG SCAY1ZKdn2F2EdJcpigTX+ KY55TOQeAG08cOAviZGjc7 bhmZt4InTs VMReMUZ5fDfoQSmed2JnNR GaI22otKLor5M9EYPliWoy xRNaDjOelEZ9nK5rERrgwe hbl9shrquh Atzsv0agwp86zF08V62dNG mjKJGoBSC0JEPoXTApxUrh as6zbK9gNy3+WVtzv7tys9 wknKf2VuWv OTZvwmTaeSxgKJL0j7YbNu 90W5MdlNvig4DyFhk6ux37 qDZtc3P6lVR9AYzeFEGlcJ 1nSPsbCnN3 RDVmYxZrvD93lETjABoeRq 2rnKdeiTinRP7kRCDlvipz HYGbpD8bCIZjhAJgsKonOF 4wNTBpbjtm g485SwFzCWU2JLOziEQpQ3 ElrT3fImFvEYWdYNFlJ5Yz fAGeEFyuR831NMnmXhJ7UH WftfMjO0It SGQhhObkUxY0w0F6Xq1Tw2 QeauxwUZO8ESelDHVjWsP0 TlAwSpF9A6QmKgf0ZUSqvT nqWJ1gO8Ow YFExezfbeleujBK9SNEnXB McuI44mUToOYkxHb1lj2F0 x319BFSsTXSuaY78Xn0jtH ogMTBwdCBU oY9apaauh8aykxhhAiRkWI UiXSp5LZv2IAWqcMbrMqVq IGS5FgD3FQQ2nXOmlU0qdR eyjesayL4z Oyc+E48tnN6kYCF7RVQ6sn jcFQUmrbEwFL05PI20A4Hu PjwvdGFibGU+PGRpdiBzdH ctML6bWoSc p1jyg4VcBHcuI7JkSZZuPR reGny8ZKXpORU6qAN2nZ4i VPKiROley6Z0mZU1N7Orxs Fzoq3jf5qb BMSuYHoiL67fqFLqb1F3GN FldYE0MTAnlJsuEhWkcL66 Oyc+YBPniCkrp0RvTddpz5 ngs2tunPs0 AhPgLUZxpoJtvNvsTIT6m6 DlBa66Y52zRWxwEFGkLCWs MCJvBXRowCvzgj4rjR1jAo 8+PGNvbCB3 qTK4fI8dWVQpOvI3EModL6 91MqMldECdJwuru7pgz7gv tWf4AaEeVUSwxwRfrRnwGF D0p8KvUs60 S07aVWprBGRlTUQxYTZcCC FxpBqnmt6vdR7eBc6+PC9j q7crny68lM16kEQ+PHRkIH R4uYtsAImj VIHyrN7vZToiNeQ1AUVaAy VenB78yLPsRSjtWt4nbQvb rOkgPI5sSZQubrmbq670Nc Tps5blWKYv cSUyDNtgFOS4Z53qb9E5XO RoLSDdAVM4sLX1aQ6usLxe bjogbGVmdDsgdmVydGljYW smVLjhI496 IHRvcDsnPlBhdGllbnQgTm IsWFt6U7IdSlu6JHCxhWew XG9ppQNfQQboZp5huJjwvQ lsMO5iATOj aeuvo496EtNgw7nrYKJxlB GoPOpnYDX4J48tk0Y6CIUt VSWjAOI5nWR3gN6hcLcjmc ogbGVmdDsg guNjlNcoLMqpRTdeM160WZ RvcDsnPkJpcnRoIERhdGU6 CA57TL84dRHar1H9cJJ9K2 BhZGRpbmct qycwiQH0DOCjZQLlzK69Ni 2fiOxwQq7yTRLeBAC3ROSe zBOyB9WnpL5rJsGwPACrYX CeJ7LdjQZk IConO424DHnkRwL1YPDvrz AwS2TuWZNtrHjiYkK8g7I4 Kv3VU7A4GD53GY49dAWzc0 F0hOY3I7Qz QIXplwjhybdabKN4DZWhQU IejC79Rc9tiNgqVc0mCNFi DJX5MNEfmIKtB1WchY3wDt AjMDAwMDAw R6TczAKwMJsaI415VVjsTc O4GSPpmxWkC1JdTMRhaArg YrZ2u5X8Ib6ATPv3RX23RL 20wOCbb2X7 yXH2O9TkIUWlanfikltyhG C6UQHnOQBymW84No4auVmg Ud3pIGMhHOP5UVSzdBMuN8 NrnF0fZiIi OVRjEDVnE3KefMPxVHauR0 80AVybIzM8ZXYgdpYtB8Xi XZHlsMaxAdF7q4N9Xv1EFJ UiSO82RIZ9 xHV5RU18RK19B5WxDvnkyJ FibGU+PHRhYmxlIHdpZHRo BPsaUFNsTyXeoYpfNW0jDc 9yZGVyLWNv sHvlnXUzXfQol4uvERSxUA ydXU8ndUjoO5SrdBA7MYQu z1r9Nu28N96eJ1TqrGD+PG WudCU2dOD5 jE9xHfHyPuF9DGpiX505Wv AfiRCnYzbse1yud8xhgPp6 SaW6MFYkdoRdvAkoPKT4f4 YjFr05S14i IHdpZHRoPSIxNSUiIHZhbG piqf6qtE5oMb3+PGNvbCB3 pPT6mR9tEsWhPnC6ECuoN2 49InRvcCIv Gkafy1bwa1ephBw6ZaVyBC TfyyMguUsmQYR3q6KmMk77 H7SpyFvme4PwVpb8oh55wU Zky0G7mGL0 N9GeZPVbvtovwDLcsXihKN 3oQJEitgxsULZllR3fOWPu B9d0ZhGhLfB3ARwrQ4Zlxi K8NPXeoLEa ITmjKTU2X63ed0A4QZRuJD VkPVD9qOW9pQ2qeRfoqtgr bGVmdDsgdmVydGljYWwtYW tsU683NCPb sDkzJEZdiE1oBIOggWWndE wvDL1pEWAwieyqCaZFLMII RQHTGGUvABNMM7UXHG71QF 80mCQpf6I3 cFG4W8VeKCTfojyhexxojP J6EZLqORLimI36yJJpRLfh Ku5ur4P1q673YPOeOQRqvN 72Gi9eyEqn EOBfhSOVrZ6epxifd5lixi dyLrPsXAPcFFs8ZBm9TEDg pHoeAxPbNPJ5FaW4KFC3fR UfvL8ndUgo cunzbX9nOry+MDYvMDUvMT e9CBbksQO+KHCkQNQ8fPuc DSniRABdaQ2mNYZzX6n7Je WlOiR9MDyx H6FuNHMxpsarRk12bA5nJk CnHdX4OIjyO8WpqtC9VONt cOHsSSprLXT7J36rm6Y3GS MwMDAwMDA7 nAB6bM3ofVvukjjahRIpzZ rqefMyqSheVYqjOYovI122 MGZqpKosSaR5NSysRVXvDP 95FG71oFTz k8K6eMM2U5JiDLJfnehsgq qleWV7YMBvWAVjdV89yUJv MYhbJr5vh8D9r624XKZgIW FbnR93Ea2m aItuIFYrnMNWkA3xznxuu3 wgxkoeSyUkJFXmFBs4NZy3 BOQrcMvhGsGyJCV2PbV2HB D0dMXmeO8s jJomvhtlkK7vQrr+RmVtYW maDA76XX08xUYat8L0aOE7 C5YkCOXhyckzctxlkNW1QT ZdJTKriZ14 gYFhYSebHp7qq4G6j205OI OqPBMvvP76Lk1vsFpeBGSg qZLTyC6lgkcdn4idhwysSe AwMDAwMDt0 OFf0YKFkcQxtOiEqNXU3Lj W9GXA9sDIyeE9qqXrgawal zS2iDky+L8P3oMR5tESleU wvdGQ+PC90 nb14X0SlHceyQte3VPXdQU Q8dYJ9cW6dYLFmXNdkx3M9 wPD0J4RobsTmii1lw4xeHT BnHQyxS93q yVHiw8B7RITabOW9ATJekD ysYeBxdQ54Mrd+PGNvbGdy a1IxIdgza8bgs7bkeOd6Uc MwJSIgdmFs aCaxQHP7k4JkDz16F54mAY dpZHRoPSIzMCUiIHZhbGln pz8zaN3eIt9+VORxsQC4mQ J9jR9xXjEe DwR0VLwxO847VtSqaBJlPm dae4gfy6wgoWc4XhDzPTZl bgZlfRndGPY5y4FiZk06B6 KlaHnly3Np Qbt3ob89uTErr2F9rWZ9Q2 BdLULrfdpgmHBmdDdeXM3w LTWvwkvjEBKnfS3tGKUpS5 p0MlAzNoQ6 BOnpL8VsxnT6ORIkiMDwNF AiuUOAcW1qhzvfi2rfxuni EpXbVEMqDWi3MKp4QFDvcE duOiBsZWZ0 ErT1OTA8eNGtpD5wgZlzrk zpaT7kIdb+BIf7m2njbLDe EO0weCQ0JT02BY05gLSzd1 Y5rCU5S5Mg YSTununrcygjxZL3NYWoNX WttQ94Sa1rzNmbUd7uIZNz HHB7PUXqqLKeJ7JdhK6wYc AjMDAwMDAw S3IewTGtNHfbP694SYzjXb T8WLZdrjZyJ3NdBRSvfAmh AbT5w1I9Vn9NKP66BG59EJ 23sOGnh5N4 oHY2N2BgQQLstivllxivkU A5OOVyKANlyH27Ax5rsAep Cb0fESQiJQX0RJFmtOXiP3 HkzY7dIwSq AOHqKCKqM6GnlEVeGHnxH7 04DMocAfP5WFSehhFyX3Cp ERRkuBxyLhZ2g3Z0Aw5WMm 26MY53FU03 tPAdb6Z1aMG1Y7QmTFAxxz rdfgfaiDY0TGVwMAWgpZ18 Af0irNfdBv8xLQElIKX3EQ CffWQeI6Ji hP0iAmIpKUIzNSRhW9CwtO AtHIxsQ644BDztVxL4NYUj qgHlT2KpGQRkzQjgIbZ6o9 U2Ra7NTLaw jzd1V4NwTadyvZD+PC90YW IbSB67rCIacIZhs7vrvXp1 MmShIGEgVWK6wOmoUPaui6 UjSPNqP94w bGFw (more content not included)... Normal [facility] Immunization Recordson 08-10 Immunization Records [id number]#1. 00CD:127 [facility] C Urineon 08-08-2022 Bacteria identified Cx [...] This test was performed at: [facility], [address] [place] [address], [address] , [place], Normal [facility] Comment on above: Performed By: #### 2 010112, 6125463, 31447773, 9753365, 4852218, 1009280 #### [facility] [address] [place] [address] ABO/Rh Retypeon 08-06-2022 ABO/Rh Retype Interp Positive Invalid Interpretation Code [facility] Comment on above: Performed By: #### 2 721984, 0566196, 27380310, 6474801, 4782078, 5858034 #### [facility] [address] [place] [address] 17335 BUNon 08-06-2022 Urea nitrogen [Mass/Vol] 15 mg/dL Normal 5-21 [facility] Comment on above: Performed By: #### 2 412020, 1015229, 79217717, 8183858, 9938348, 8380137 #### [facility] [address] [place] [address] 36552 CBC w/Indiceson 08-06-2022 Erythrocyte distribution width (RBC) [Ratio] 14.3 % High 10.9-14.2 [facility] Comment on above: Performed By: #### 2 776563, 0593538, 70079060, 3864977, 6139918, 4493942 #### [facility] [address] [place] [address] Hematocrit (Bld) [Volume fraction] 46.3 % High 34.0-46.0 [facility] Comment on above: Performed By: #### 2 412693, 0706647, 36121888, 3156224, 7151607, 5307380 #### [facility] [address] [place] [address] 59075 Hemoglobin (Bld) [Mass/Vol] 15.8 g/dL Normal 12.0-16.0 [facility] Comment on above: Performed By: #### 2 214300, 9223059, 77971077, 3962075, 7656389, 7139899 #### [facility] [address] [place] [address] 73183 MCH (RBC) [Entitic mass] 29.5 pg Normal 27.0-34.0 [facility] Comment on above: Performed By: #### 2 432164, 9838854, 90150224, 3909756, 6381298, 0993588 #### [facility] [address] [place] [address] MCHC (RBC) [Mass/Vol] 34.2 g/dL Normal 31.4-36.0 [facility] Comment on above: Performed By: #### 2 243324, 0921120, 48021862, 7743275, 2879911, 1971085 #### [facility] [address] [place] [address] 40876 MCV (RBC) [Entitic vol] 86.3 fL Normal 80.0-100.0 [facility] Comment on above: Performed By: #### 2 711372, 9377701, 34113015, 7701996, 5752893, 2463717 #### [facility] [address] [place] [address] 98932 Platelet mean volume (Bld) [Entitic vol] 7.8 fL Normal 6.4-10.8 [facility] Comment on above: Performed By: #### 2 972654, 7092842, 98687017, 5680306, 3030586, 4106215 #### [facility] [address] [place] [address]197 Platelets (Bld) [#/Vol] 239.0 E9/L Normal 150.0-500.0 [facility] Comment on above: Performed By: #### 2 443631, 3774203, 65443001, 8304754, 7565062, 7197487 #### [facility] [address] [place] [address] RBC (Bld) [#/Vol] 5.4 E12/L Normal 4.3-5.9 [facility] Comment on above: Performed By: #### 2 021881, 2371111, 65903702, 6251634, 7483399, 0185751 #### [facility] [address] [place] [address] WBC corrected for nucl RBC Auto (Bld) [#/Vol] 6.7 E9/L Normal 4.0-11.0 [facility] Comment on above: Performed By: #### 2 553759, 9431132, 16163601, 8793744, 0837509, 8564247 #### [facility] [address] [place] [address] Consent for Treatmenton Consent for Treatment [id number] 0CD:[id number] Normal [facility] Creatinineon 08-06-2022 Creatinine [Mass/Vol] 0.7 mg/dL Normal 0.5-1.3 [facility] Comment on above: Performed By: #### 2 381818, 0628254, 43339429, 5644467, 8105906, 4345929 #### [facility] [address] [place] [address] Glucoseon 08-06-2022 Glucose [Mass/Vol] 101 mg/dL Normal 55-199 [facility] Comment on above: Performed By: #### 2 055143, 3702446, 03327511, 9898452, 6394430, 1595154 #### [facility] [address] [place] [address] Lyteson 08-06-2022 Anion gap [Moles/Vol] 13 mmol/L Normal 6-16 [facility] Comment on above: Performed By: #### 2 857139, 5267160, 84248756, 0028039, 7745887, 3573548 #### [facility] [address] [place] [address] Chloride [Moles/Vol] 101 mmol/L Normal 101-111 [facility] Comment on above: Performed By: #### 2 897265, 7436745, 65554575, 0802013, 6562920, 4376297 #### [facility] [address] [place] [address] CO2 [Moles/Vol] 27 mmol/L Normal 21-31 [facility] Comment on above: Performed By: #### 2 826164, 8586684, 03278481, 3091898, 3095715, 1959540 #### [facility] [address] [place] [address] Potassium [Moles/Vol] 4.2 mmol/L Normal 3.5-5.3 [facility] Comment on above: Performed By: #### 2 537007, 5973479, 79928398, 6632937, 3989009, 6749037 #### [facility] [address] [place] [address] Sodium [Moles/Vol] 137 mmol/L Normal 135-145 [facility] Comment on above: Performed By: #### 2 819064, 8124432, 38973581, 9772750, 1502791, 4539483 #### [facility] [address] [place] [address] UA With Cult Reflexon 2021 Bacteria LM Ql (Urine sed) TRACE Normal Trace [facility] Comment on above: Performed By: #### 2 837944, 2517839, 65660722, 7695791, 9333868, 0312480 #### [facility] [address] [place] [address] Bilirubin Ql (U) Negative Normal Negative [facility] Comment on above: Performed By: #### 2 725895, 9279177, 20002704, 6129524, 8759462, 5478313 #### [facility] [address] [place] [address] Clarity (U) CLEAR Normal Clear [facility] Comment on above: Performed By: #### 2 581059, 5083594, 53909486, 9642393, 8324420, 8231815 #### [facility] [address] [place] [address] Color (U) YELLOW Normal Yellow [facility] Comment on above: Performed By: #### 2 052950, 5360129, 00064171, 2369548, 5861172, 7709961 #### [facility] [address] [place] [address] Epithelial cells.squamous LM.HPF (Urine sed) [#/Area] 3-4 Normal 0-2 [facility] Comment on above: Performed By: #### 2 061727, 0490641, 93497284, 7374566, 5245296, 8772517 #### [facility] [address] [place] [address] Glucose Test strip (U) [Mass/Vol] Negative Normal Negative [facility] Comment on above: Performed By: #### 2 540872, 2694356, 74729334, 5555220, 0311623, 1300684 #### [facility] [address] [place] [address] Hemoglobin Ql (U) Negative Normal Negative [facility] Comment on above: Performed By: #### 2 [id number], 7843425, [id number], 1689882, [id number], [id number] #### [facility] [address] [place] [address] Ketones (U) [Mass/Vol] Negative Normal Negative [facility] Comment on above: Performed By: #### 2 910059, 7346934, 79635322, 9801659, 0757578, 6568970 #### [facility] [address] [place] [address] Heber.plasma/Lith ium.RBC (Bld) [Mass ratio] 0-3 Normal 0-3 [facility] Comment on above: Performed By: #### 2 010056, 3226597, 65126152, 2731391, 9598853, 3465542 #### [facility] [address] [place] [address] Mucus Ql (Urine sed) TRACE Normal [facility] Comment on above: Performed By: #### 2 761640, 3325249, [id number], 0979649, 9624975, [id number] #### [facility] [address] [place] [address] Nitrite Ql (U) Negative Normal Negative [facility] Comment on above: Performed By: #### 2 872791, 4291591, 16958130, 4767038, 4239858, 5365530 #### [facility] [address] [place] [address] pH (U) 7.0 [pH] Invalid Interpretation Code 5.0-9.0 [facility] Comment on above: Performed By: #### 2 908061, 2220107, 08682269, 4362004, 4001163, 6447304 #### [facility] [address] [place] [address] Protein (U) [Mass/Vol] Negative Normal Negative [facility] Comment on above: Performed By: #### 2 788404, 5745540, 08024962, 0259305, 3652816, 5956477 #### [facility] [address] [place] [address] Specific gravity (U) [Rel density] 1.015 Invalid Interpretation Code 1.005-1.030 [facility] Comment on above: Performed By: #### 2 365726, 3550278, 48975064, 9158389, 8643090, 8172507 #### [facility] [address] [place] [address] Type of Urine collection method Clean Catch Normal [facility] Comment on above: Performed By: #### 2 712762, 1347601, 98896911, 7255786, 7981784, 0811745 #### [facility] [address] [place] [address] Urobilinogen Qn (U) 0.2 {Tyson'U}/dL Normal 0.0-1.0 [facility] Comment on above: Performed By: #### 2 887795, 5744170, 70811719, 3070662, 6394296, 3545497 #### [facility] [address] [place] [address] WBC Auto Ql (U) TRACE Abnormal Negative [facility] Comment on above: Performed By: #### 2 850778, 1315124, 85485433, 1696168, 3005042, 2876207 #### [facility] [address] [place] [address] WBC LM.HPF (Urine sed) [#/Area] 6-15 Abnormal 0-5 [facility] Comment on above: Performed By: #### 2 396054, 1682621, 10585299, 1993651, 3694538, 3214631 #### [facility] [address] [place] [address] XR Chest 2 Viewson 2 XR Chest [...] Quiros MD Transcribed by: AUSTIN Technologist: Normal [facility] eGFRon 08-06-2022 GFR/1.73 sq M.predicted among blacks MDRD (S/P/Bld) [Vol rate/Area] mL/min/{1.73_m2} Normal >=59 [facility] Comment on above: Order Comment: Order added by Discern Expert. Result Comment: eGFR is race adjusted. AA=. Performed By: #### 2 716971, 5950140, 18935260, 9679046, 0152965, 7494170 #### [facility] [address] [place] [address] GFR/1.73 sq M.predicted among non-blacks MDRD (S/P/Bld) [Vol rate/Area] mL/min/{1.73_m2} Normal >=59 [facility] Comment on above: Order Comment: Order added by Discern Expert. Result Comment: Labor Relations Representative taylor kidney disease could be indicated at eGFR's of less than 60 mL/min/1.73m2. Kidney failure is indicated at less than 15 mL/min/1.73m2. Performed By: #### 2 623131, 5266429, 51423338, 1205584, 6928628, 7866462 #### [facility] [address] [place] [address] Physician Orderon 07-12-2022 Physician Order [id number]. [id number]:[id number] Normal [facility] CBC AUTO DIFFon 05-20-2022 BASO # 0.1 103/ul Normal 0.0-0.1 [facility] Comment on above: Performed By: #### C BC #### [facility] [address] [place] [address] Dr. Carmen Brown Basophils/100 WBC (Bld) 1.2 % Normal 0.2-2.0 [facility] Comment on above: Performed By: #### C BC #### [facility] [address] [place] [address] Dr. Carmen Brown EO # 0.2 103/ul Normal 0.0-0.7 [facility] Comment on above: Performed By: #### C BC #### [facility] [address] [place] [address] Dr. Carmen Brown Eosinophils/100 WBC (Bld) 3.9 % Normal 0.9-7.0 [facility] Comment on above: Performed By: #### C BC #### [facility] [address] [place] [address] Dr. Carmen Brown Erythrocyte distribution width (RBC) [Ratio] 13.2 % Normal 11.0-15.0 [facility] Comment on above: Performed By: #### C BC #### [facility] [address] [place] [address] Dr. Carmen Brown Hematocrit (Bld) [Volume fraction] 49.3 % Critically high 36.0-48.0 [facility] Comment on above: Performed By: #### C BC #### [facility] [address] [place] [address] Dr. Carmen Brown Hemoglobin (Bld) [Mass/Vol] 16.0 g/dL Normal 12.0-16.0 [facility] Comment on above: Performed By: #### C BC #### [facility] [address] [place] [address] Dr. Carmen Brown IG # 0.02 10e3/ul Normal 0.00-0.03 [facility] Comment on above: Performed By: #### C BC #### [facility] [address] [place] [address] Dr. Carmen Brown IG % 0.4 % Normal 0.0-0.5 [facility] Comment on above: Performed By: #### C BC #### [facility] [address] [place] [address] Dr. Carmen Brown LYMPH # 1.3 103/ul Normal 1.2-3.8 [facility] Comment on above: Performed By: #### C BC #### [facility] [address] [place] [address] Dr. Carmen Brown Lymphocytes/100 WBC (Bld) 24.6 % Normal 20.5-60.0 [facility] Comment on above: Performed By: #### C BC #### [facility] [address] [place] [address] Dr. Carmen Brown MANUAL DIFF REQ NO Normal [facility] Comment on above: Performed By: #### C BC #### [facility] [address] [place] [address] Dr. Carmen Brown MCH (RBC) [Entitic mass] 29.1 pg Normal 26.7-34.0 [facility] Comment on above: Performed By: #### C BC #### [facility] [address] [place] [address] Dr. Carmen Brown MCHC (RBC) [Mass/Vol] 32.5 g/dL Normal 29.9-35.2 [facility] Comment on above: Performed By: #### C BC #### [facility] [address] [place] [address] Dr. Carmen Brown MCV (RBC) [Entitic vol] 89.8 fL Normal 81.0-99.0 [facility] Comment on above: Performed By: #### C BC #### [facility] [address] [place] [address] Dr. Carmen Brown MONO # 0.4 103/ul Normal 0.3-0.8 [facility] Comment on above: Performed By: #### C BC #### [facility] [address] [place] [address] Dr. Carmen Brown Monocytes/100 WBC (Bld) 7.7 % Normal 1.7-12.0 [facility] Comment on above: Performed By: #### C BC #### [facility] [address] [place] [address] Dr. Carmen Brown NEUT # 3.2 103/ul Normal 1.4-6.5 [facility] Comment on above: Performed By: #### C BC #### [facility] [address] [place] [address] Dr. Carmen Brown Neutrophils/100 WBC (Bld) 62.2 % Normal 43.0-75.0 [facility] Comment on above: Performed By: #### C BC #### [facility] [address] [place] [address] Dr. Carmen Brown Platelet mean volume (Bld) [Entitic vol] 9.5 fL Normal 9.5-13.5 [facility] Comment on above: Performed By: #### C BC #### [facility] [address] [place] [address] Dr. Carmen Brown PLT 256 103/ul Normal 150-450 [facility] Comment on above: Performed By: #### C BC #### [facility] [address] [place] [address] Dr. Carmen Brown RBC 5.49 106/ul Critically high 4.20-5.40 [facility] Comment on above: Performed By: #### C BC #### [facility] [address] [place] [address] Dr. Carmen Brown WBC 5.1 103/ul Normal 4.0-11.0 [facility] Comment on above: Performed By: #### C BC #### [facility] [address] [place] [address] Dr. Carmen Brown FREE T4on 05-20-2022 Free T4 [Mass/Vol] 1.43 ng/dL Normal 0.76-1.46 [facility] Comment on above: Performed By: #### F T4 #### [facility] [address] [place] [address] Dr. Caremn Brown GLYCOHEMOGLOBIN A1Con 2021 ADA RECOMMENDATION SEE BELOW Normal [facility] Comment on above: Result Comment: ADA RECOMMENDED LIMIT 4.0 - 6.0 ADA THERAPEUTIC TARGET < 7.0 ACTION SUGGESTED > 7.0 Performed By: #### A 1C #### [facility] [address] [place] [address] Dr. Carmen Brown Glucose [Mass/Vol] 128 mg/dL Normal [facility] Comment on above: Performed By: #### A 1C #### [facility] [address] [place] [address] Dr. Carmen Brown HbA1c (Bld) [Mass fraction] 6.1 % Normal 4.5-6.2 [facility] Comment on above: Performed By: #### A 1C #### [facility] [address] [place] [address] Dr. Carmen Brown PROF CHEM 8 (BAS METB)on Anion gap [Moles/Vol] 11.9 mmol/L Normal [facility] Comment on above: Performed By: #### T SH, BMP #### [facility] [address] [address] [address] Carmen Brown Calcium [Mass/Vol] 9.5 mg/dL Normal 8.5-10.1 [facility] Comment on above: Performed By: #### T SH, BMP #### [facility] [address] [address] [address] Carmen Brown Chloride [Moles/Vol] 105 mmol/L Normal 98-107 [facility] Comment on above: Performed By: #### T SH, BMP #### [facility] [address] [address] [address] Carmen Brown CO2 [Moles/Vol] 28.5 mmol/L Normal 21.0-32.0 [facility] Comment on above: Performed By: #### T JUAN, BMP #### [facility] [address] [place] [address] Dr. Carmen Brown Creatinine [Mass/Vol] 0.78 mg/dL Normal 0.55-1.02 [facility] Comment on above: Performed By: #### T SH, BMP #### [facility] [address] [address] [address] Carmen Brown EGFR-AF ALBANIAN >60 Normal >=60 [facility] Comment on above: Performed By: #### T SH, BMP #### [facility] [address] [place] [address] Dr. Carmen Brown EGFR-NON AF ALBANIAN >60 Normal >=60 [facility] Comment on above: Performed By: #### T JUAN, BMP #### [facility] [address] [place] [address] Dr. Carmen Brown Glucose [Mass/Vol] 127 mg/dL Critically high 74-106 [facility] Comment on above: Performed By: #### T SH, BMP #### [facility] [address] [place] [address] Dr. Carmen Brown Potassium [Moles/Vol] 4.4 mmol/L Normal 3.5-5.1 [facility] Comment on above: Performed By: #### T SH, BMP #### [facility] [address] [address] [address] Carmen Brown Sodium [Moles/Vol] 141 mmol/L Normal 136-145 [facility] Comment on above: Performed By: #### T SH, BMP #### [facility] [address] [address] [address] Carmen Brown Urea nitrogen [Mass/Vol] 10.0 mg/dL Normal 7.0-18.0 [facility] Comment on above: Performed By: #### T SH, BMP #### [facility] [address] [place] [address] Dr. Carmen Brown Urea nitrogen/Creatinine [Mass ratio] 12.8 mg/mg Normal [facility] Comment on above: Performed By: #### T JUAN, BMP #### [facility] [address] [place] [address] Dr. Carmen Brown TSHon 05-20-2022 TSH 1.276 uIU/mL Normal 0.358-3.740 [facility] Comment on above: Performed By: #### T JUAN, BMP #### [facility] [address] [place] [address] Dr. Carmen Brown Vital Signs Date Time Vital Sign Value Performing Clinician Facility 06-05-2024 [id number] Body height 160.02 cm [facility] 06-05-2024 11:43-0400 Body mass index (BMI) [Ratio] 40.1 kg/m2 [facility] 06-05-2024 [id number] Body weight 102.62 kg [facility] 06-05-2024 11:43-0400 Diastolic blood pressure 88 mm[Hg] [facility] 06-05-2024 11:43-0400 Heart rate 76 /min [facility] 06-05-2024 11:43-0400 Respiratory rate 18 /min [facility] 06-05-2024 11:43-0400 SaO2% (BldA) [Mass fraction] 97 % [facility] 06-05-2024 11:43-0400 Systolic blood pressure 134 mm[Hg] [facility] 05-22-2024 09:21-0400 Body height 160.02 cm [facility] 05-22-2024 09:21-0400 Body mass index (BMI) [Ratio] 40.4 kg/m2 [facility] 05-22-2024 09:21-0400 Body weight 103.41 kg [facility] 05-22-2024 09:21-0400 Diastolic blood pressure 87 mm[Hg] [facility] 05-22-2024 09:21-0400 Heart rate 74 /min [facility] 05-22-2024 09:21-0400 Systolic blood pressure 152 mm[Hg] [facility] 2024 14:30-0400 Body height 160.02 cm [facility] 2024 14:30-0400 Body mass index (BMI) [Ratio] 40.7 kg/m2 [facility] 2024 14:30-0400 Body weight 104.32 kg [facility] 2024 14:30-0400 Diastolic blood pressure 77 mm[Hg] [facility] 2024 14:30-0400 Heart rate 75 /min [facility] 2024 14:30-0400 Systolic blood pressure 122 mm[Hg] [facility] 05-20-2023 14:30-0400 Body height 160.02 cm Camille Williamson Other [facility] Other 05-20-2023 14:30-0400 Body mass index (BMI) [Ratio] 40.38 kg/m2 Camille Williamson Other [facility] Other 05-20-2023 14:30-0400 Body weight 103.42 kg Camille Williamson Other [facility] Other 05-20-2023 14:30-0400 Diastolic blood pressure 81 mm[Hg] Camille Williamson Other [facility] Other 05-20-2023 14:30-0400 Systolic blood pressure 140 mm[Hg] Camille Williamson Other [facility] Other 04-28-2023 13:30-0400 Body height 160.02 cm Camille Williamson Other [facility] Other 04-28-2023 13:30-0400 Body mass index (BMI) [Ratio] 39.14 kg/m2 Camille Williamson Other [facility] Other 04-28-2023 13:30-0400 Body weight 100.25 kg Camille Williamson Other [facility] Other 04-28-2023 13:30-0400 Diastolic blood pressure 82 mm[Hg] Camille Williamson Other [facility] Other 04-28-2023 13:30-0400 Systolic blood pressure 130 mm[Hg] Camille Williamson Other [facility] Other 02-21-2023 14:30-0400 Body height 160.02 cm Camille Williamson Other [facility] Other 02-21-2023 14:30-0400 Body mass index (BMI) [Ratio] 41.98 kg/m2 Camille Williamson Other [facility] Other 02-21-2023 14:30-0400 Body weight 107.5 kg Camille Williamson Other [facility] Other 02-21-2023 14:30-0400 Diastolic blood pressure 82 mm[Hg] Camille Williamson Other [facility] Other 02-21-2023 14:30-0400 Systolic blood pressure 136 mm[Hg] Camille Williamson Other [facility] Other 09-16-2022 15:15-0500 Body height 160.02 cm Camille Williamson Other [facility] [employer] Other 09-16-2022 15:15-0500 Body mass index (BMI) [Ratio] 41.62 kg/m2 Camille Williamson Other [facility] Other 09-16-2022 15:15-0500 Body weight 106.6 kg Camille Williamson Other [facility] Other 09-16-2022 15:15-0500 Diastolic blood pressure 86 mm[Hg] Camille Williamson Other [facility] Other 09-16-2022 15:15-0500 SaO2% (BldA) [Mass fraction] 97 % Camille Williamson Other [facility] Other 09-16-2022 15:15-0500 Systolic blood pressure 132 mm[Hg] Camille Williamson Other [facility] Other 08-31-2022 15:54-0500 SaO2% (BldA) [Mass fraction] 98 % [facility] 08-31-2022 12:00-0500 Heart rate 66 /min [facility] 08-31-2022 12:00-0500 SaO2% (BldA) [Mass fraction] 98 % [facility] 08-31-2022 12:00-0500 Body temperature 97.16 [degF] [facility] 08-31-2022 12:00-0500 Diastolic blood pressure 78 mm[Hg] [facility] 08-31-2022 12:00-0500 Mean blood pressure 96 mm[Hg] Gwyn Garcia [facility] 08-31-2022 12:00-0500 Systolic blood pressure 133 mm[Hg] Gwyn Cam [facility] 08-31-2022 08:28-0500 Blood Pressure Location Gwyn Garcia [facility] 08-31-2022 08:28-0500 Body temperature 98.42 [degF] Gwyn Garcia [facility] 08-31-2022 08:28-0500 Diastolic blood pressure 55 mm[Hg] Gwyn Cam [facility] 08-31-2022 08:28-0500 Heart rate 61 /min Gwyn Garcia [facility] 08-31-2022 08:28-0500 Hourly Rounding Gwyn Cam [facility] 08-31-2022 08:28-0500 Mean blood pressure 64 mm[Hg] Gwyn Cam [facility] 08-31-2022 08:28-0500 Respiratory rate 18 /min Gwyn Garcia [facility] 08-31-2022 08:28-0500 SaO2% (BldA) [Mass fraction] 98 % Gwyn Cam [facility] 08-31-2022 08:28-0500 Systolic blood pressure 81 mm[Hg] Gwyn Cam [facility] 08-31-2022 06:14-0500 Hourly Rounding Gwyn Cam [facility] 08-31-2022 06:14-0500 Promise to Return Gwyn Cam [facility] 08-31-2022 05:18-0500 Hourly Rounding Gwyn Cam [facility] 08-31-2022 05:18-0500 Promise to Return Gwyn Garcia [facility] 08-31-2022 04:01-0500 Blood Pressure Location Gwyn Garcia [facility] 08-31-2022 04:01-0500 Body temperature 98.24 [degF] Gwyn Cam [facility] 08-31-2022 04:01-0500 Diastolic blood pressure 81 mm[Hg] Gwyn Cam [facility] 08-31-2022 04:01-0500 Heart rate 71 /min Gwyn Cam [facility] 08-31-2022 04:01-0500 Mean blood pressure 96 mm[Hg] Gwyn Cam [facility] 08-31-2022 04:01-0500 Mean blood pressure 103 mm[Hg] Gwyn Cam [facility] 08-31-2022 04:01-0500 Respiratory rate 17 /min Gwyn Cam [facility] 08-31-2022 04:01-0500 Systolic blood pressure 147 mm[Hg] Gwyn Cam [facility] 08-31-2022 04:00-0500 Promise to Return Gwyn Cam [facility] 08-31-2022 00:24-0500 Blood Pressure Location Gwyn Cam [facility] 08-31-2022 00:24-0500 Body temperature 98.06 [degF] Gwyn Garcia [facility] 08-31-2022 00:24-0500 Mean blood pressure 96 mm[Hg] Gwyn Garcia [facility] 08-31-2022 00:24-0500 Mean blood pressure 105 mm[Hg] Gwyn Garcia [facility] 08-31-2022 00:24-0500 Respiratory rate 15 /min Gwyn Garcia [facility] 08-30-2022 20:04-0500 Body temperature 97.7 [degF] Gwyn Garcia [facility] 08-30-2022 14:25-0500 Body temperature 96.98 [degF] Gwyn Garcia [facility] 08-30-2022 14:25-0500 Respiratory rate 16 /min Gwyn Garcia [facility] 08-30-2022 14:15-0500 Respiratory rate 19 /min Gwyn Garcia [facility] 08-30-2022 14:00-0500 Respiratory rate 18 /min Gwyn Garcia [facility] 08-30-2022 13:46-0500 Body temperature 96.98 [degF] Gwyn Garcia [facility] 08-30-2022 10:01-0500 Heart rate 60 /min Gwyn Garcia [facility] 08-30-2022 09:59-0500 Body temperature 97.88 [degF] Gwyn Garcia [facility] Encounters Encounter Date Encounter Type Care Provider Facility Start: 06-05-2024 End: 06-05-2024 ambulatory [facility] Work Phone: Start: 06-05-2024 End: 06-05-2024 Patient encounter procedure [facility] Work Phone: Start: 05-31-2024 End: 05-31-2024 ambulatory ROBERTO AGUAYO [facility] Comment on above: Weakness of both low er extremities (Primary Dx) Start: 05-31-2024 End: 05-31-2024 Bamboo flowsheet [facility] Start: 05-31-2024 End: 05-31-2024 Bamboo flowsheet Roberto Aguyao [employer] [facility] Start: 05-29-2024 End: 05-30-2024 ambulatory Roberto Aguayo [employer] [facility] Comment on above: Weakness of both low er extremities (Primary Dx) Start: 05-29-2024 End: 05-29-2024 Bamboo flowsheet Ilene Cha PT [facility] Start: 05-29-2024 End: 05-29-2024 Bamboo flowsheet Ilene Cha PT [facility] Start: 05-24-2024 End: 05-24-2024 ambulatory ROBERTO AGUAYO Not Available Start: 05-23-2024 End: 05-23-2024 ambulatory PRINCESS DOUGHERTY Not Available Start: 05-22-2024 End: 05-22-2024 ambulatory ROBERTO AGUAYO Not Available Start: 05-22-2024 End: 05-22-2024 ambulatory [facility] Work Phone: Start: 05-22-2024 End: 05-22-2024 Patient encounter procedure [facility] Work Phone: Start: 05-19-2024 Non-patient / Non-visit [facility] Work Phone: Start: 05-17-2024 End: 05-17-2024 ambulatory ROBERTO AGUAYO Not Available Start: 05-16-2024 Patient encounter status [facility] Start: 05-15-2024 End: 05-15-2024 ambulatory ROBERTO AGUAYO Not Available Start: 05-10-2024 End: 05-10-2024 ambulatory ILENE CHA Not Available Start: 05-08-2024 End: 05-08-2024 ambulatory ILENE CHA Not Available Start: 05-03-2024 End: 05-03-2024 ambulatory ILENE CHA Not Available Start: 05-01-2024 End: 05-01-2024 ambulatory ILENE CHA Not Available Start: 04-26-2024 End: 04-26-2024 ambulatory ROBERTO AGUAYO Not Available Start: 04-24-2024 End: 04-24-2024 ambulatory ROBERTO AGUAYO Not Available Start: 04-18-2024 End: 04-18-2024 ambulatory ILENE CHA Not Available Start: 04-16-2024 End: 04-16-2024 ambulatory ROBERTO AGUAYO Not Available Start: 04-13-2024 End: 04-13-2024 ambulatory ROBERTO AGUAYO Not Available Start: 04-10-2024 End: 04-10-2024 ambulatory ILENE CHA Not Available Start: 03-27-2024 End: 03-27-2024 ambulatory PRINCESS LADONNA Not Available Start: 02-27-2024 End: 02-27-2024 ambulatory PRINCESS LADONNA Not Available Start: 2024 End: 2024 ambulatory [facility] Work Phone: Start: 2024 End: 2024 Patient encounter procedure [facility] Physician [facility] Work Phone: Start: 01-10-2024 Non-patient / Non-visit [facility] Physician [facility] Work Phone: Start: 01-03-2024 End: 01-03-2024 ambulatory PRINCESS LADONNA Not Available Start: 12-19-2023 Non-patient / Non-visit [facility] Physician [facility] Work Phone: Start: 12-07-2023 End: 12-07-2023 ambulatory GWYN GARCIA Not Available Start: 09-24-2023 End: 09-24-2023 ambulatory Camille Williamson Other [facility] Other Start: 09-24-2023 Telephone encounter Camille Williamson [facility] Start: 06-16-2023 End: 06-16-2023 ambulatory Camille Williamson Other [facility] Other Start: 06-16-2023 Telephone encounter Camille Williamson [facility] Start: 05-20-2023 End: 05-20-2023 ambulatory Camille Williamson Other [facility] Other Start: 05-20-2023 Office outpatient vi sit 15 minutes Camille Williamson [facility] Start: 04-29-2023 End: 04-29-2023 ambulatory Camille Williamson Other [facility] Other Start: 04-29-2023 Telephone encounter Camille Williamson [facility] Start: 04-28-2023 End: 04-28-2023 ambulatory Camille Williamson Other [facility] Other Start: 04-28-2023 Office outpatient vi sit 15 minutes Camille Williamson [facility] Start: 04-25-2023 End: 04-25-2023 ambulatory Camille Williamson Other [facility] Other Start: 04-25-2023 Telephone encounter Camille Williamson [facility] Start: 02-21-2023 End: 02-21-2023 ambulatory Camille Williamson Other [facility] Other Start: 02-21-2023 Office outpatient vi sit 15 minutes Camille Williamson [facility] Start: 12-13-2022 End: 12-14-2022 Evaluation and management of inpatient Gwyn Garcia Facility:[facility] Start: 10-14-2022 End: 10-14-2022 ambulatory Camille Williamson Other [facility] Other Start: 10-14-2022 Telephone encounter Camille Clay [facility] Start: 09-16-2022 End: 09-16-2022 ambulatory Camille Clay Other [facility] Other Start: 09-16-2022 Office outpatient vi sit 15 minutes Camille Williamson [facility] Start: 09-01-2022 End: 09-01-2022 ambulatory Camille Williamson Other [facility] Other Start: 09-01-2022 Telephone encounter Camille Williamson [facility] Start: 08-31-2022 End: 08-31-2022 ambulatory Camille Williamson Other [facility] Other Start: 08-31-2022 Telephone encounter Camille Williamson [facility] Start: 08-30-2022 End: 08-31-2022 Evaluation and management of inpatient Gwyn Garcia Facility:[facility] Start: 08-30-2022 End: 08-31-2022 Evaluation and management of inpatient Gwyn Garcia [facility] Start: 08-06-2022 End: 08-07-2022 ambulatory Gwyn Spencer Cam Facility:[facility] Start: 05-20-2022 End: 05-21-[address] CAMILLE WILLIAMSON Facility: Procedures Date Procedure Procedure Detail Performing Clinician Start: 04-20-2023 History of operative procedure on knee History of left knee replacement Ilene Cha PT Start: 08-30-2022 Total knee replacement Gwyn Garcia section Gwyn flowers Cholecystectomy Gwyn greco Lumpectomy of breast Gwyn Garcia Tympanotomy Gwyn Garcia Plan of Treatment Date Care Activity Detail Author Start: 12-05-2024 End: 12-05-2024 Patient encounter procedure 12/05/2024 10:30 AM EDT Office Visit [facility] [address] [facility] [address] [place] [address] Gwyn Garcia, DO [address] [facility] [place] [address] [facility] Start: 11-06-2024 End: 11-06-2024 Patient encounter procedure 11/06/2024 3:45 PM EDT Office Visit [facility] [address] [place] [id number] Princess Dougherty, DO [address] [place] [address] [facility] [address] Start: 05-31-2024 End: 05-31-2024 ambulatory [facility] Comment on above: Arrived Start: 05-29-2024 End: 05-29-2024 ambulatory 05/29/2024 2:30 PM EDT Treatment [facility] [address] [place] [id number] Ilene Cha, PT Arrived [facility] Comment on above: Arrived Start: 2019 Pneumococcal Vaccine : 65+ Years (2 of 2 - PCV) Pneumococcal Vaccine: 65+ Years (2 of 2 - PCV) [facility] Start: 1994 Screening for malign ant neoplasm of breast Mammogram [facility] Start: 1954 Screening for malign ant neoplasm of colon [facility] MR Unspecified body region [facility] Immunizations Immunization Date Immunization Notes Care Provider Fa cility 06-12-2020 influenza virus vaccine, split virus (incl. purified surface antigen) Camille Williamson Other [facility] Other 06-12-2020 influenza virus vaccine, unspecified formulation [facility] 06-30-2008 pneumococcal polysaccharide vaccine, 23 valent Ilene Cha PT [facility] Payers Date Payer Category Payer [employer] ( and others) [employer] LIFE [id number] 2024-Present [address] [place] [address] [id number] 2024 [employer] ( and others) [id number] 2022 Medicare [id number] 2019 Medicare MEDICARE MEDICAR E PART B [id number] 2019-[place] [place] [address] Medicare [id number] 2016 Unknown BCBS BCBS [id number] 2016-Present [phone] [address] [place] [address] [id number] 1959 Medicare [id number] 1959 Unknown [id number] 1954 Unknown [id number] 2.16.840.1.236535.3.579.2. 593 1954 Unknown [id number] 2.16.840.1.351224.3.579.2. 727 1954 Unknown [id number] 2.16.840.1.552714.3.579.2. 727 1954 Unknown [id number] 2.16.840.1.884827.3.579.2. 727 1954 Unknown [id number] 2.16.840.1.924266.3.579.2. 1259 1954 Unknown [id number] 2.16.840.1.177221.3.579.2. 1259 1954 Unknown [id number] 2.16.840.1.132848.3.579.2. 1259 1954 Unknown [id number] 2.16.840.1.301911.3.579.2. 1259 1954 Unknown [id number] 2.16.840.1.566127.3.579.2. 1259 1954 Unknown [id number] 2.16.840.1.820954.3.579.2. 1259 1954 Unknown [id number] 2.16.840.1.396288.3.579.2. 1259 1954 Unknown [id number] 2.16.840.1.929503.3.579.2. 1259 1954 Unknown [id number] 2.16.840.1.143528.3.579.2. 9 1954 Unknown [id number] 2.16.840.1.549017.3.579.2. 1258 1954 Unknown [id number] 2.16.840.1.627334.3.579.2. 1258 1954 Unknown [id number] 2.16.840.1.513093.3.579.2. 1258 1954 Unknown [id number] 2.16.840.1.792907.3.579.2. 1258 1954 Unknown [id number] 2.16.840.1.220794.3.579.2. 1258 1954 Unknown [id number] 2.16.840.1.832037.3.579.2. 1258 1954 Unknown [id number] 2.16.840.1.687935.3.579.2. 1258 1954 Unknown [id number] 2.16.840.1.942866.3.579.2. 1258 1954 Unknown [id number] 2.16.840.1.601153.3.579.2. 1258 1954 Unknown [id number] 2.16.840.1.534276.3.579.2. 1258 1954 Unknown [id number] 2.16840.1.314577.3.579.2. 1258 1954 Unknown [id number] 2.16.840.1.319186.3.579.2. 1258 1954 Unknown [id number] 2.16840.1.768996.3.579.2. 1258 1954 Unknown [id number] 2.16840.1.564559.3.579.2. 1259 Social History Date Type Detail Facility [facility] Start: 05-23-[facility]24 Sex Assigned At Female F [facility] Start: 04-20-2023 End: 2024 Tobacco smoking status NHIS Never smoked tobacco (finding) [facility] Start: 1955 Sex Assigned At Female F [facility] Start: 04-20-2023 Tobacco use and exposure Smokeless tobacco non-user [facility] Start: 05-23-2024 Alcoholic beverage intake Lifetime non-drinker (finding) [facility] Start: 05-23-2024 History of Social function [facility] Start: 05-02-2023 Alcohol Comment caffeine intak e: 1-2 cups per day [facility] Start: 1955 Sex assigned at Not on file [facility] Healthcare Medical Equipment Procedure Code Equipment Code Equipment Origin al Text Equipment Identifier Dates KNEE TOTAL ARTHROPLASTY Gwyn Garcia DO 08/30/22 Non Biological Knee R {[id number] [id number] FDA Start: 08-30-2022 Clinical Notes 08-25-2022 to 05-20-2023 Note Date & Type Note Facility 05-20-2023 Evaluation note Encounter Date Diagnosis Assessment Notes Apr, Hypercalcemia (ICD-10 - E83.52) Added PTH and faxed to [facility] lab - add onto lab drawn Apr, Hypothyroidism (acquired) (ICD-10 - E03.9) Apr, Essential hypertension (ICD-10 - I10) Apr, Other Other labs reviewed w pt - gave copies to pt and explained overall normal results. Continue present medications. [facility] Other 08-31-2023 Evaluation note* Encounter Date Diagnosis [...] continue to monitor through routine blood work [facility] Other 06-26-2023 Evaluation note* Encounter Date Diagnosis Assessment Notes Treatment Notes Treatment Clinical Notes Jan, Bilateral hearing loss, unspecified hearing loss type (ICD-10 - H91.93) Jan, Middle ear effusion, bilateral (ICD-10 - H65.93) [facility] Other 04-18-2023 NoteCRM entered the room to discuss dc planning. PCP, DME and insurance discussed. Patient is alert andinvolved in plan of care. Contact information provided and whiteboard updated. Pt will dc with [facility], she has a FWW from home. No further needs. ANt dc today.[facility]:Result Comment: Electronically Signed By: Cheri Doan.param\Date and Time Signed: 12/14/22 09:50 [id number] NotePatient: CECI SPEARS Age: 67 years Sex: [...] Poly out POD#21. F/U in 4 weeks. [facility]:Result Comment: Electronically Signed By: Gwyn Garcia DO\.br\Date and Time Signed: 12/14/22 06:59 EDT 12-13-2022 NotePT Evaluation completed with an [facility] score 14/24. Pt currently requires Mod A x 2 for bed mobilityand Mod A x 2 to stand. Pt was able to take a couple steps to complete a transfer. Will follow daily to progress with recommendations to be given on POD # 1Fyamini [facility]04-10-2023 Note [id number]:127Kenneth [facility] 10-14-2022 Evaluation note* Encounter Date Diagnosis Assessment Notes Treatment Notes Treatment Clinical Notes Sep, Depression with anxiety (ICD-10 - F41.8) [facility] Other 01-19-2023 Evaluation note* Encounter Date Diagnosis Assessment Notes Treatment Notes Treatment Clinical Notes Aug, Depression with anxiety (ICD-10 - F41.8) Aug, Essential hypertension (ICD-10 - I10) continue metoprolol at this time Aug, BMI 40.0-44.9, adult (ICD-10 - Z68.41) Encouraged patient to continue to watch their diet and increase exercise regimen. [facility] Other 01-03-2023 Evaluation + Plan noteExtracted from: [...] course. reg diet. Mepilex chnage 10 days. [place] out POD#14. F/U in 4 weeks. Extracted [...] in stable and satisfactory condition.. [facility]01-03-2023 NotePatient: CECI SPEARS Age: 67 years [...] days. Poly out POD#14. F/U in 4 weeks.[facility]:Result Comment: Electronically Signed By: Gwyn [...] standing. Recommend SNF for further rehab upon discharge.[facility]12-29-2022 Hospital Discharge instructions Patient Education 08/26/2022 18:11:21 Cam - Total Knee Arthroplasty (CUSTOM) [place], [place] [facility] DISCHARGE INSTRUCTIONS TOTAL KNEE [...] will continue at home, possible with the school bus driver/teacher assistant of Home Health Physical Therapy or [...] Driving too soon, you are considered animpaired drive away driver, and 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 It is therefore advised not to drive until after yourfirst office visit following surgery FOLLOW-UP OFFICE VISIT: Gwyn Garcia, DO [facility] [address] [place], [place] [address] Reviewed: 4-08 Follow Up Care 07/12/2022 08:53:18 With:Gwyn Garcia Address: [address] [place] [address]- Business (1) When:09/29/2022 09:30:00 Comments:Keep scheduled appointment With:CAMILLE WILLIAMSON Address: [address] [place] [address]- Business (1) When:09/03/2022 09:00:00 [facility]12-28-2022 Note [id number]:127[facility] Evaluation noteNo InformationNoDepartment [facility] (1[facility]) Other Evaluation noteNo assessment information available [facility] Work Phone: Evaluation note* Diagnosis Onset Date Resolution Status Elevated glucose acute Essential hypertension acute Hypothyroidism (acquired) [place] [facility] Work Phone: Evaluation note* Diagnosis Weakness of both lower extremities- Primary documented in this encounter [facility] Diagnosis Weakness of both lower extremities- Primary documented [facility] this encounter [facility]* Diagnosis Onset Date Resolution Status Elevated glucose acute Essential hypertension acute Hypothyroidism (acquired) [place] Impairment of balance acute [facility] Work Phone: Hisvjyk general Narrative - Reported* Type Description Date [...] TRK 08/29/2022 Hospitalization History SEE SURGICAL HX [facility] (1BO[facility]) Other His[facility] general Narrative - Reported* Type Description Date [...] media with effu mundo Surgical History section 2014 Surgical History laparascopic cholecystectomy 20 13 Surgical History TRK 08/29/TLK Surgical History TLK 11/2022 Hospitalization History SEE SURGICAL HX [facility] Other Hospital course Narrative No data available for this section [facility] No data available for this section [facility] Summary Purpose Family History Relationship Condition [...] unspecified hearing loss type (H91.93) Referral Organization [facility] Referring Provider First Name Camille Referring Provider Last Name Clay Referring Provider Specialty [facility] Referred Organization [facility] Referred Provider Heath Monroy Referred Address ,[place], [place],[address] Referred Provider Specialty Otolaryngolo gy Referral Priority Routine Chief Complaint and Reason for Visit Chief Complaint Amb Documentation Ear complaints Reason for Visit Elevated glucose Essential hypertension Hypothyroidism (acquired) Chief Complaint Trouble Walking Reason for Visit Elevated glucose Essential hypertension Hypothyroidism (acquired) Impairment of balance Additional Source Comments INFORMATION SOURCE (unrecogn ized section and content) DATE CREATED AUTHOR 05/30/2022 [facility] DATE CREATED AUTHOR AUTHOR'S ORGANIZ ATION 12/20/[address] [facility] DATE CREATED AUTHOR AUTHOR'S ORGANIZ ATION 06/02/2024 [facility] dical Specialists EPIC Patient Care [...] Attending Provider Active Start: 2024 End: 2024 Team Status: Active Member Role Status Dates Camille Williamson MD Primary Care Provide r, Attending Provider Active Start: May 19, 2024 Team Status: Inactive Member Role Status Dates Camille Williamson MD Primary Care Provide r, Attending Provider Active Start: May 22, 2024 End: May 22, 2024 Toe Closing Machine Tender Relationship Specialty Start Date End Date Camille Williamson MD [address] [place] [facility] [place] [id number] PCP - General Family Medicine 03/10/23 Toe Closing Machine Tender Relationship Specialty Start Date End Date Camille Williamson MD [address] [place] [facility] [place] [address] PCP - General Family Medicine 03/10/23 Toe Closing Machine Tender Relationship Specialty Start Date End Date Camille Williamson MD [address] [place] [facility] [place] [address] PCP - General Family Medicine 03/10/23 Toe Closing Machine Tender Relationship Specialty Start Date End Date Camille Williamson MD [address] [place] [facility] [place] [address] PCP - General Family Medicine 03/10/23 Team Status: Inactive Member Role Status Dates Camille Williamson MD Primary Care Provide r, Attending Provider Active Start: June 05, 2024 End: June 05, 2024 REASON FOR VISIT (unrecogniz ed section and content) Specialty Diagnoses / Procedures Referred By Contac t Referred To Contact Physical Therapy Diagnoses Weakness of both lower extremities Procedures NV OFFICE/OUTPATIENT NEW HIGH MDM 60 MINUTES Princess Dougherty DO [address] [place] [address] Cha, Ilene, PT Referral ID Status Reason Start Date Expiration Date Visits Requested Visits Authorized [id number] Authorized Consult and Treat 03/27/2024 09/23/2024 25 30 REFILLfollow up lab resultsdepression medication changesreferral for entmessageCheck Upmedication questionBP medication [...] BE BASED ON THE PRIMARY CLINICAL RECORDS. [facility]. provides no warranty or guarantee of the accuracy or completeness of information in this document.
== END 2024-06-18 14:12 | disposition home or self-care (01) ==
LOC: MRI 14:11
PROVIDERS: PCP Family Medicine; Visit Provider Family Medicine
DX: R26.89 Other abnormalities of gait and mobility (principal)
CPT/HCPCS: 70551

== ENCOUNTER 2024-07-27 09:57 | Outpatient (OUT) | payer MEDICARE, BC, OTHER, SELFPAY ==
--- OUTSIDE RECORDS SUMMARY | 2024-07-27 10:00 | XMS_ITS | CCD ---
Author Organization [facility] CliniSyor Care Team Providers Care Bacteriologist Dairy Name Role Phone DR CAMILLE WILLIAMSON Attending Unavailable WILLIAMSON, DR CAMLILE Powell Consulting Unavailable WILLIAMSON, DR CAMILLE Powell Primary Care Unavailable CLAY, DR CAMILLE Powell Admitting Unavailable CAMILLE WILLIAMSON Primary Care Physician [phone] Camille Williamson Gwyn Garcia Attending Unavailable Garcia, [...] Medication Allergies] Propensity to adverse reactions (disorder) [facility] Repository Medications Current Medications Medication Drug [...] hours as needed for knee replacement pain, [facility]/pharmacy #[id number], 160, cm, 08/09/22 5:49:00 EST, [...] day(s), # 30 tab(s), Refills(s) 0, Pharmacy: [facility]/pharmacy #[id number], 160, cm, 08/09/22 5:49:00 EST, [...] BID, # 20 cap(s), Refills(s) 0, Pharmacy: [facility]/pharmacy #[id number], 160, cm, 08/09/22 5:49:00 EST, [...] Basophils (Bld) [#/Vol] 0.1 10 3/uL 0.0-0.1 [facility] Basophils/100 WBC Auto (Bld) on 05-19-2024 Basophils/100 WBC (Bld) 1.8 % 0.2-2.0 [facility] Cholesterol in LDL Calc [Mas s/Vol]on 05-19-2024 Cholesterol in LDL [Mass/Vol] 112.0 mg/dL [facility] Comment on above: <100 mg/dl [id number] 0-129 mg/dl NEAR OR ABOVE [id number] mg/dl BORDERLINE [id number] mg/dl HIGH>190 mg/dl VERY HIGH Cholesterol in VLDL Calc [Ma ss/Vol]on 05-19-2024 Cholesterol in VLDL [Mass/Vol] 40.8 mg/dL [facility] Eosinophils/100 WBC Auto (Bl d)on 05-19-2024 Eosinophils/100 WBC (Bld) 3.1 % 0.9-7.0 [facility] Erythrocyte distribution wid th Auto (RBC) [Ratio]on 05-19-2024 Erythrocyte distribution width (RBC) [Ratio] 14.0 % 11.0-15.0 [facility] Estimated glomerular filtrat ion rate (GFR) non- Americanon 05-19-2024 GFR/1.73 sq M.predicted among non-blacks MDRD (S/P/Bld) [Vol rate/Area] mL/min/{1.73_m2} >=60 [facility] Globulin Calc (S) [Mass/Vol] on 05-19-2024 Globulin (S) [Mass/Vol] 3.3 g/dL [facility] Hematocrit Auto (Bld) [Volum e fraction]on 05-19-2024 Hematocrit (Bld) [Volume fraction] 47.9 % 36.0-48.0 [facility] Hemoglobin [Mass/volume] in Bloodon 05-19-2024 Hemoglobin (Bld) [Mass/Vol] 16.0 g/dL 12.0-16.0 [facility] Laboratory - Chemistry and C hemistry - challengeon 05-19-2024 Albumin [Mass/Vol] 3.6 g/dL 3.4-5.0 [facility] ALP [Catalytic activity/Vol] 76 U/L 46-116 [facility] ALT [Catalytic activity/Vol] 22 U/L 14-59 [facility] AST [Catalytic activity/Vol] 13 U/L Low 15-37 [facility] Bilirubin [Mass/Vol] 0.5 mg/dL 0.2-1.0 [facility] Calcium [Mass/Vol] 9.5 mg/dL 8.5-10.1 [facility] Chloride [Moles/Vol] 104 mmol/L 98-107 [facility] Cholesterol [Mass/Vol] 199 mg/dL <=200 [facility] Cholesterol in HDL [Mass/Vol] 47 mg/dL 40-60 [facility] Comment on above: > or =60 mg/dl - LOW CARDIOVASCULAR RISK<40 mg/dl - HIGH CARDIOVASCULAR RISK CO2 [Moles/Vol] 27.2 mmol/L 21.0-32.0 [facility] Creatinine [Mass/Vol] 0.74 mg/dL 0.55-1.02 [facility] Free T4 [Mass/Vol] 1.45 ng/dL 0.76-1.46 [facility] GFR/1.73 sq M.predicted MDRD (S/P/Bld) [Vol rate/Area] mL/min/{1.73_m2} >=60 [facility] Glucose [Mass/Vol] 114 mg/dL High 74-106 [facility] Potassium [Moles/Vol] 4.0 mmol/L 3.5-5.1 [facility] Protein [Mass/Vol] 6.9 g/dL 6.4-8.2 [facility] Sodium [Moles/Vol] 137 mmol/L 136-145 [facility] Triglyceride [Mass/Vol] 204 mg/dL High <=150 [facility] TSH Qn 0.198 m[IU]/L Low 0.358-3.740 [facility] Urea nitrogen [Mass/Vol] 15.0 mg/dL 7.0-18.0 [facility] Urea nitrogen/Creatinine [Mass ratio] 20.3 mg/mg [facility] Laboratory - Hematology and Cell countson 05-19-2024 Immature granulocytes/100 WBC (Bld) 0.3 % 0.0-0.5 [facility] Leukocytes [#/volume] correc bright for nucleated erythrocytes in Blood by Automated counon 05-19-2024 WBC corrected for nucl RBC Auto (Bld) [#/Vol] 3.9 10 3/uL Low 4.0-11.0 [facility] Lymphocytes Auto (Bld) [#/Vo l]on 05-19-2024 Lymphocytes (Bld) [#/Vol] 0.7 10 3/uL Low 1.2-3.8 [facility] Lymphocytes/100 WBC Auto (Bl d)on 05-19-2024 Lymphocytes/100 WBC (Bld) 18.5 % Low 20.5-60.0 [facility] MCH Auto (RBC) [Entitic mass ]on 05-19-2024 MCH (RBC) [Entitic mass] 28.9 pg 26.7-34.0 [facility] MCHC Auto (RBC) [Mass/Vol]on 05-19-2024 MCHC (RBC) [Mass/Vol] 33.4 g/dL 29.9-35.2 [facility] MCV Auto (RBC) [Entitic vol] on 05-19-2024 MCV (RBC) [Entitic vol] 86.5 fL 81.0-99.0 [facility] Monocytes Auto (Bld) [#/Vol] on 05-19-2024 Monocytes (Bld) [#/Vol] 0.4 10 3/uL 0.3-0.8 [facility] Monocytes/100 WBC Auto (Bld) on 05-19-2024 Monocytes/100 WBC (Bld) 10.0 % 1.7-12.0 [facility] Neutrophils Auto (Bld) [#/Vo l]on 05-19-2024 Neutrophils (Bld) [#/Vol] 2.6 10 3/uL 1.4-6.5 [facility] Neutrophils/100 WBC Auto (Bl d)on 05-19-2024 Neutrophils/100 WBC (Bld) 66.3 % 43.0-75.0 [facility] No Panel Informationon 05-19 Eosinophils # (Auto) 0.1 10 3/uL 0.0-0.7 [facility] Immature Granulocyte # (Auto) 0.01 10 3/uL 0.00-0.03 [facility] Platelet mean volume Auto (B ld) [Entitic vol]on 05-19-2024 Platelet mean volume (Bld) [Entitic vol] 9.4 fL Low 9.5-13.5 [facility] Platelets Auto (Bld) [#/Vol] on 05-19-2024 Platelets (Bld) [#/Vol] 228 10 3/uL 150-450 [facility] RBC Auto (Bld) [#/Vol]on RBC (Bld) [#/Vol] 5.54 10 6/uL High 4.20-5.40 [facility] Serum or plasma albumin/glob ulin mass ratioon 05-19-2024 Albumin/Globulin [Mass ratio] 1.1 {ratio} [facility] Serum or plasma anion gap de terminationon 05-19-2024 Anion gap [Moles/Vol] 9.8 mmol/L [facility] Serum or plasma total choles terol/high density lipoprotein (HDL) cholesterol mass alaina 05-19-2024 Cholesterol.total/C holesterol in HDL [Mass ratio] 4.2 {ratio} [facility] Comment on above: 3.3 - 4.4 LOW RISK4. 4 - 7.1 AVERAGE RISK7.1 - 11.0 MODERATE RISK>11.0 HIGH RISK Albumin [Mass/volume] in Ser um or Plasmaon 01-10-2024 Albumin [Mass/Vol] 3.8 g/dL 2.9-4.4 [facility] Glucose mean value [Mass/vol ume] in Blood Estimated from glycated hemoglobinon 01-10-2024 Average glucose Estimated from glycated hemoglobin (Bld) [Mass/Vol] 123 mg/dL [facility] - Chemistry and C hemistry - challengeon 01-10-2024 Cobalamin (Vitamin B12) [Mass/Vol] 359.0 pg/mL 193.0-986.0 [facility] TSH Qn 1.183 m[IU]/L 0.358-3.740 [facility] - Hematology and Cell countson 01-10-2024 HbA1c (Bld) [Mass fraction] 5.9 % 4.5-6.2 [facility] Comment on above: ADA RECOMMENDED LIMI T 4.0 - 6.0ADA THERAPEUTIC TARGET < 7.0ACTION SUGGESTED> 7.0 No Panel Informationon 01-09 Folate 13.70 ng/mL 8.60-58.90 [facility] Protein Electrophoresis M-Tu Not Observed g/dL Not Observed [facility] Protein Electrophoresis Note Comment . [facility] Comment on above: Protein electrophore sis scan will follow via computer,mail, or interior design faculty member delivery.Performed at: [facility] [id number] Director: Rylan Agustin PhD, Phone: [phone] Protein [Mass/volume] in Ser um or Plasmaon 01-10-2024 Protein [Mass/Vol] 6.6 g/dL 6.0-8.5 [facility] Serum globulin measurement ( mass/volume)on 01-10-2024 Globulin (S) [Mass/Vol] 2.8 g/dL 2.2-3.9 [facility] Serum or plasma albumin/glob ulin mass ratioon 01-10-2024 Albumin/Globulin [Mass ratio] 1.4 {ratio} 0.7-1.7 [facility] Serum or plasma alpha 1 glob ulin measurement by electrophoresis (mass/volume)on 01-10-2024 Alpha 1 globulin Elph [Mass/Vol] 0.2 g/dL 0.0-0.4 [facility] Serum or plasma alpha 2 glob ulin measurement by electrophoresis (mass/volume)on 01-10-2024 Alpha 2 globulin Elph [Mass/Vol] 0.8 g/dL 0.4-1.0 [facility] Serum or plasma beta globuli n measurement by electrophoresis (mass/volume)on 01-10-2024 Beta globulin Elph [Mass/Vol] 0.9 g/dL 0.7-1.3 [facility] Serum or plasma gamma globul in measurement by electrophoresis (mass/volume)on 01-10-2024 Gamma globulin Elph [Mass/Vol] 0.8 g/dL 0.4-1.8 [facility] Coding Summary.on 12-20-2022 Coding Summary. CD:[id number] Ww +PGhlYWQ+MW2HFEChZ56hy ZAneR3xC8SFZZkTSrtnEXI AKMcXNkKjmyUbEK2ueRYiY XJu IC8+HT7uIPXzOgkmtWCgx7 V0xSZ2Y75syt0rYHxwrIV3 BWXoDsFeqnpmk1ykdFp1HO cuNmluOyBt UHHbyG54TAY6mC73Zs34rJ DduWHux5bvpZj3XjIyBZHw QSK1cRntDKcml6FkUNJjL8 0ewKRha6O9 XFPvmFkqvWVuBnYmiCM6cA 1mZBdosjzbn1amdicoYzb9 oc63oPEhe7J8oJW9F0Ebcz B6ZPUkbPPh VhbthTMRfX7spzwmo8ztdv lfChIhDEGbRKz5CUx6YSYz mIamZmXpET28BII5MLYdzw JyR7FhQYNn uZdzNcC2p0R5Su4IK3XWFz coQ4DQAYSCIPbovJF+PC90 ta05L1TcKcmoLmx5CPAdHS W6cXE0pX9w JYHvHAfhj3J4yVH3A6Isok Zgea3nx9hpXRMzIExiE15v fWGyt2C4SUSkuNB7LEOehF ffVzDweQ88 Oyc+PAUxkRzoh8QlRcpmo3 xco8ztjLu7LyfjMAZromUl rNjrQDF1g9VfDu3vDDRdkE H9zOD0hM5v HuFkJfV7ONgdP575SaIqsJ RrOsrhB80jO4XhmJX+PHRy Uwn5ETEbzVqpSU9mR7XwKD RpbmctbGVm bRhvDD7pQOUpwcyaGJCgyS 7kHZCoG5r9LfTaRlO3FGlj E3WhLQGhbjslTv13qK7aPw VjKjA7GZra R9UqxqA1IYJktDQdZNpkFJ Z3J94ri4V6MVHfRMEfFXT4 uPU8oE2zrBwbbsvevELtiY sgdmVydGlj OYgeVBehC956DMNwmKdjTu NvZGluZyBEYXRlOiAgMDQv MjQvMjAyMzwvdGQ+PHRkIH Q8mNenEKUc eHJeGPbvOm5bgNrwxXiaSK 4hWXEjjqrdLYFxvX1pPXFc mEQetTauIS5vJYPvchbkm3 41MePaMQZ8 DNTfkEUcN0SbfD5qCpDqNT VvYQPsX4IegFBgGHzeL216 VCykJqU3HSQcetTgE2PoNN FsaWduOiB0 t9N4Qb0Ds7AtgsykX6TgkQ DnTrPzUwjtIMp0T8KmGakm dHI+OH45OTSfUU00CYx2OT K9fJyeFHop ZQBhO8BznY7uYcRtZBTyVA RkOyc+PHRhYmxlIHdpZHRo GArqRZJdXbUbbSsjLY6nTw 9yZGVyLWNv uHxobEYvDhOsk7lkICKkYA euIG5hbNfgU1LolVJ7TITw o0i9Xa04X55gX2RaxWY+PG CyaZU0yTD5 yR1cMmKzSjJ5ZLipH150Cs FslKRkDmpxb8ncn0fsoNz2 WbS2MMDwqpXbkOhcJVR0v6 OlJd06P03c IHdpZHRoPSIxNSUiIHZhbG fyje9qlO5lMz3+PGNvbCB3 kNA0gW1vZbVqAaI8YAkfV9 49InRvcCIv Aqwtp2wfp2feoTi1RhKeUK KlzzWukHqqLGP0v4MwAp54 A5VvdCwgs9CsOxq2ge53lB Hup1U1iYZ9 S0CmNTSdycqvgKOxhRgtOS 4jCEFkbisgTSKklN7rRZAi W9c3PaRtNvC3BDyeX3Pnim F1MKWduNIu JKAdsSGGmR5yxucsk3acpg hrZuToAHRmBVb5JFi8WWJt kOpvXlBfLXK9DlN5NZM1fM ZezK4avThh jhrozS9sNlv+EPE0fHIvyW TROG9cJljvrWW+PHRkIHN0 qOdqMCxcAJDpwR5kAXMuG3 t0CsZpFjN3 CJwvN9BoumC7KTHdkGUjIL JjiMNErH9bxrobh0shvbgy OhRfPMDcHCg2MBn8YNOhqX duOiBsZWZ0 QmV6ZNH7nAQckC7leImlzb ewuK9bFgb+QmlydGggRGF0 UOk1M4SlUsw0MOEktEqiYA 0ncGFkZGlu Si6xaZkzcOngEB9jUXIncd qms599RsNge5hhPCNnaWFm ZWbbKGF3P94je7L7ZEDvBB BfAXJ5vZR0 xI1liExngszrgZWabCcenl GjhXabRDmrDVziF212JZId xEqnFbBaHOd1S4ErSay6KJ NptZoyRX9c cVYwJEtkDi2zeRgkoBevWJ 3jLZFwaefnc832SvVhr9hx WRRevAZuWBblKNK9V40zc3 U3WVYuRWJj QFH5wBC2fF1ekNmucgrrqK VmdDsgdmVydGljYWwtYWxp L202DLAwdXejHrHdqLb1C3 LtHku8GCJo nDlnHO3aoYOoFMagBc5qfD eytOboKA9mAACgrqwky712 IlTuc5ziUJBfaXYdNUkoCW L2M00mv7S8 GHQvIXIdUKV6sWT0rM9qwF lnbjogbGVmdDsgdmVydGlj XGteQCipA319XVYstDzzXw BhdGllbnQg NMdvNIi5B2XhYguegXA+PC 60HFAlRI09wQKxyTKvx1gb wOl6HlTcWDHkYEK2xQwnAQ mml7OkRTGy N00boSHxc8F6WYOkxWsodT ZgKmZalVT1nP2kVToitikn c7ituoccMofkf4nctx10yZ 62I04zHGxw ZHRoPSIzMCUiIHZhbGlnbj 1rqE7bWs8+UOKqqKV9gSB4 jD7qAOBuYdJ7KWmdF421Dj RvcCIvPjxj n2gbk1lxoXo8KbX8ZIWmkw KhaOqaAPD7f0PbCz77G59e IHdpZHRoPSIyMCUiIHZhbG hkrt8ghK7c Ii8+QPJirUD3jSG5bB1bZc OuYoC0IMwaC620GoKmjZOe BsahS56aV5TcoYO+PHRyPj b7IKXfmTns AS4lkYUqKRmfKc0sUCR3Gw HpKhUuNLnrW5BhQDYzuwkz imhhmFW8VTStIOEbjY97Su 9udDogMTBw iICLiQ6gjmmgf7zeauiaVl GsMRSiZLa8IPg2LLTcvGjq FnTtVZA3EoK1FML5oPHwnY 1hbGlnbjog lE0kB9GsQWQupodiMg33lZ 3tWyIlQrZ5CDybQpo+Uk9I RtLZW5dBVmdlQ1MCKG97B6 KyNbj2EVJu sYbhDZ2lhKToLWbwNg9pnD nacNuwHR9gJKGrueuqJLIf pJ8mHYYftKDlsUdzDM1sRN Kduhoyn538 MdYgUSZ5WDXjnULtD6EwtK 3uZwBmKMClFYNvN5GgtYMt KFvrL045IXpgPnG6SMDlvr XrM6IcYOFp aMktZnF1p8N3Rh4jVm0pTH 9pJKJ9JN71EW33pBJpk2R0 iEE8A9NmRXOolcqxyozboG T1CJMqFLUb zS60pSHsPPkmRu1ya0F2k9 88LUHrXGTniB19Dt1bkUxz VPSebBRRwC2kuhnga1foav ogIzAwMDAw KQr1FCm7WKRriMbrAcRoIG X4TzS1NVY7dRXwxO3fiHag icykxG8tGqb+NjggWWVhcn K6N7TgUkl1 GPHfxYsrKY1euBGmROmoSm 2xoTqwlKfiQP4yYKMucflf LHNzmN4qRJNlvYBihVfiMK 4wNTBpbjtm q467GnKwEJY0IEMwfNOuY6 LidF4oNxTjFDOyNJGiC2Ld lJHfFCwsN615ORbvPoC5UV BobyBzU5Gy MSSrqMdzWbN1o7J6Kf1DWJ 0uwMX4X9TtVlk2OILefFbx FE9cpKJzPOdpFv1lyQpjbO ttAT3kIZHn ggysJFSxuK7lOETxjMEljA gnZE1vXFQzditov224BjAw ASP6RZWxdTSvY9EguN1sAs AjMDAwMDAw R6ZthATgVIwaL008ZTjfHy W0CGXjohZaE1MtNKOdwVtu RxI3v3Z7Ho8WdzErrXzijs G9K8SuKywe dHI+CU14YTTmNR93lKKmzO Sde9qykFd8XsCxMZOdKYX4 rCegQBseb8LfQTNbF64utQ Soa2K8WMTh hGxfwZGvMrSryKM6oQ6xKL cqnewvg6pybzlbRiotm3mj ap31rL09Y81sBEzdFGKhZZ IzMCUiIHZh eCkdrz1arK2uVm9+PGNvbC Y8yPQ6kM7dRlXuZjN6MNzc U420IvRmaYMaKfsha2ppp9 idoRy6NoAm HGPiseGcyZczKEX6q6FuKg 68B20gUBomPQCcOHYrWZAp WWMrwLruzd7mmU2qJz1+PC 7ft7pjgg33 tL89sFN+KGMrVLP7lGoyNO ekXUZhiK6xTUirKiB7RGFf GqHmxP37kDBdXWqbCo4ngF zfyVzmCA9k BBDclihtq557InTom5ogFM CuxHIgVBmvNMI8X68er8A9 PDMvMLWoPYU9cXI2pN9huQ lnbjogbGVm dDsgdmVydGljYWwtYWxpZ2 56ETZpkLwdKdKdaXLhI7xb cxEDXY9rXiqrxRA+PHRkIH A5xGzfINgk FBFssC6rGAXgL1g6WgJvBx V7PXcnJ7HggoL0GHZsfYWw AMJilMWGkQ0masjwf0xivr ogIzAwMDAw FOc4AEf4LUTrdQcfKfRpIQ E5HhQ1CMM1dQAnmO6thZkw msrxfS0oMvx+RklOOjwvdG Q+PHRkIHN0 cMwnLMsuRPOdtB9rOIPiE6 p3LfNfOsD4FJioU4BwvhK8 RVBvuCDqJNGngQDSiE9btv nej5jxhdlg DxDuAFJnSBp2FAd8DGQnpK epRpCmBEN9DfR3QYM1vNSr pH2yiAjzzpjcsZ5lQii+TV JOOjwvdGQ+ YEXtNMD5lBtiQVetATAyqE 2uUQKdH4b9DbCkFpO4PQpx Y9FjmiX6HDGwxFLnAYUzaI RCwD3xhqes z6wmsqdfPuQfMWXhADi0KE k7PSOutCzeSxQpTHG5MfP9 MJZ9fYJkkJ7jiXheqeejtD 9wOyc+UGF5 GWP4TW84MD30K4IkTplpgR FibGU+PHRhYmxlIHdpZHRo LHutCAIvWoEfrNjoNS3nGy 9yZGVyLWNv bGxhcHNl (more content not included)... Normal [facility] IntraOperative Documentson 0 12-20-2022 IntraOperative Documents [id number]. [id number]:127 Normal [facility] Operative Reporton 3 Operative Report Patient: CECI SPEARS Age: 67 years Sex: Female : 1955 Associated Diagnoses: None Author: [facility] Information Date/ Time: 12/13/2022 09:00:00 Preoperative [...] Using maximal sterile barrier technique per current [facility] guidelines including hand hygeine, Guidance (Ultrasound used [...] surgeon request for post-op pain management. Normal [facility] Comment on above: Result Comment: Elec tronically Signed By: MD Margot, Andrew Browne\.br\Date and Time Signed: 12/19/22 13:04 EDT IntraOperative Documentson 0 12-17-2022 IntraOperative Documents [id number]. [id number] Normal [facility] Auto Diffon 12-14-2022 Basophils/100 WBC (Bld) 0.6 % Normal 0.0-2.0 [facility] Comment on above: Order Comment: Order Added by Discern Expert. Performed By: #### 2 232469, 6641252, 3801983, 84784046, 4624388, 3835092 ####[facility] [address] [place] [address] Basophils/Leukocyte s Auto (Bld) [Pure # fraction] 0.0 E9/L Normal 0.0-0.2 [facility] Comment on above: Order Comment: Order Added by Discern Expert. Performed By: #### 2 470047, 6144834, 1526465, 82403001, 9358797, 6052447 ####[facility] [address] [place] [address] Eosinophils/100 WBC (Bld) 1.0 % Normal 0.0-8.0 [facility] Comment on above: Order Comment: Order Added by Discern Expert. Performed By: #### 2 718682, 4409234, 1759583, 77577827, 3437821, 2126709 ####[address] [place] [address] Eosinophils/Leukocy julia Auto (Bld) [Pure # fraction] 0.1 E9/L Normal 0.0-0.5 [facility] Comment on above: Order Comment: Order Added by Discern Expert. Performed By: #### 2 274516, 7348236, 0813247, 19672084, 7502234, 1491166 ####[address] [address] Lymphocytes/100 WBC (Bld) 11.2 % Low 14.0-50.0 [facility] Comment on above: Order Comment: Order Added by Discern Expert. Performed By: #### 2 383666, 8864516, 4506705, 23637323, 7244273, 3872482 ####[address] [address] Lymphocytes/Leukocy julia Auto (Bld) [Pure # fraction] 0.7 E9/L Low 1.0-4.0 [facility] Comment on above: Order Comment: Order Added by Discern Expert. Performed By: #### 2 855022, 9529023, 9707128, 26043294, 6010996, 6278512 ####[address] [address] Monocytes/100 WBC (Bld) 7.7 % Normal 4.0-14.0 [facility] Comment on above: Order Comment: Order Added by Discern Expert. Performed By: #### 2 249931, 2616454, 5185932, 32082786, 8568570, 6844065 ####[address] [place] [address] Monocytes/Leukocyte s Auto (Bld) [Pure # fraction] 0.5 E9/L Normal 0.2-1.0 [facility] Comment on above: Order Comment: Order Added by Discern Expert. Performed By: #### 2 762068, 0750203, 4447967, 26507589, 6633546, 7067108 ####[address] [place] [address] Neutrophils/100 WBC (Bld) 79.5 % High 36.0-75.0 [facility] Comment on above: Order Comment: Order Added by Discern Expert. Performed By: #### 2 010481, 2402010, 2191858, 22130266, 9271959, 9150963 ####[facility] [address] [place] [address] Neutrophils/Leukocy julia Auto (Bld) [Pure # fraction] 5.1 E9/L Normal 2.0-7.5 [facility] Comment on above: Order Comment: Order Added by Discern Expert. Performed By: #### 2 886514, 3238904, 1731822, 42894857, 4623414, 0455466 ####[facility] [address] [place] [address] BUNon 12-14-2022 Urea nitrogen [Mass/Vol] 12 mg/dL Normal 5-21 [facility] Comment on above: Performed By: #### 2 156663, 4107796, 9370614, 03575683, 3597345, 6804060 ####[facility] [address] [place] [address] CBC w/ Auto Diffon Erythrocyte distribution width (RBC) [Ratio] 14.7 % High 10.9-14.2 [facility] Comment on above: Performed By: #### 2 242909, 5695933, 5763568, 16740851, 0580097, 5682248 #### [facility] [address] [place] [address] Hematocrit (Bld) [Volume fraction] 42.3 % Normal 34.0-46.0 [facility] Comment on above: Performed By: #### 2 162709, 7154060, 0481545, 80147938, 1935236, 3991129 #### [facility] [address] [place] [address] Hemoglobin (Bld) [Mass/Vol] 13.4 g/dL Normal 12.0-16.0 [facility] Comment on above: Performed By: #### 2 523396, 9503339, 1639196, 70753973, 0782179, 9502458 #### [facility] [address] [place] [address] MCH (RBC) [Entitic mass] 28.1 pg Normal 27.0-34.0 [facility] Comment on above: Performed By: #### 2 500937, 6467765, 4048844, 05187274, 8656173, 0455790 #### [facility] [address] [place] [address] MCHC (RBC) [Mass/Vol] 31.8 g/dL Normal 31.4-36.0 [facility] Comment on above: Performed By: #### 2 820265, 3545524, 6696095, 49525106, 7465850, 7110393 #### [facility] [address] [place] [address] MCV (RBC) [Entitic vol] 88.5 fL Normal 80.0-100.0 [facility] Comment on above: Performed By: #### 2 931146, 3017279, 6192377, 79521089, 8086982, 7738551 #### [facility] [address] [place] [address] 64743 Platelet mean volume (Bld) [Entitic vol] 7.3 fL Normal 6.4-10.8 [facility] Comment on above: Performed By: #### 2 592647, 4892280, 8853882, 29682634, 0528562, 0122411 #### [facility] [address] [place] [address] 79431 Platelets (Bld) [#/Vol] 193.0 E9/L Normal 150.0-500.0 [facility] Comment on above: Performed By: #### 2 641031, 1310639, 6555980, 30248570, 2929330, 4863394 #### [facility] [address] [place] [address] 12362 RBC (Bld) [#/Vol] 4.8 E12/L Normal 4.3-5.9 [facility] Comment on above: Performed By: #### 2 851275, 5454426, 1226518, 37437992, 2127943, 0105942 #### [facility] [address] [place] [address] WBC corrected for nucl RBC Auto (Bld) [#/Vol] 6.4 E9/L Normal 4.0-11.0 [facility] Comment on above: Performed By: #### 2 039138, 4585583, 4667178, 82942429, 0343007, 4809866 #### [facility] [address] [place] [address] Consent for Anesthesiaon Consent for Anesthesia [id number]. 00CD:127 Normal [facility] Creatinineon 12-14-2022 Creatinine [Mass/Vol] 0.7 mg/dL Normal 0.5-1.3 [facility] Comment on above: Performed By: #### 2 386497, 9644714, 5650545, 87401072, 0195168, 1648620 ####[facility] [address] [place] [address] Discharge Instructionson Discharge Instructions [id number]#1. 00CD:127 Normal [facility] Discharge Note-Nursingon Discharge Note-Nursing SNEHALLissa CECI [...] Dressing On Post-op day 10 Pharmacy Information [facility] Discharge Instructions Discharge Instructions New Follow Up Appointments after Discharge Follow Up with Gwyn Garcia When: 01/12/2023 09:30 AM EDT Comments: Keep scheduled appointment Where: [address] [place] [id number] (1) Follow Up with CAMILLE WILLIAMSON When: Comments: No PCP appointment required for surgery patient. Please follow up with ORTHO. Thank you! Where: [address] [place], [place] [address] (1) Medications What How Much When Why Instructions Next Dose Unchanged acetaminophen-oxycodon e (Percocet 5 mg-325 mg oral tablet) See instructions Localized osteoarthritis of left knee Take one to two every 4 hours as needed for pain from knee surgery Pickup at [facility]/pharmacy #[id number] NEEDED FOR PAIN, AFTER 1215 PM ON 12/14 Unchanged aspirin (aspirin 325 mg Tab) 1 Tablets By Mouth Every day Duration: 30 Days Start the day after knee surgery Pickup at [facility]/pharmacy #[id number] 12/15 @ 9 AM Unchanged docusate (Colace 100 mg Cap) 1 Capsules By Mouth 2 times a day Pickup at [facility]/pharmacy #[id number] 12/14 @ 9 PM Unchanged levothyroxine (levothyroxine 137 mcg (0.137 mg) Tab) 1 Tablets By Mouth Every day 12/15 @ 7 AM Unchanged metoprolol (metoprolol 25 mg ER Tab) 1 Tablets By Mouth Every day 12/15 @ 9 AM [id number] [address], [place] [id number] [phone] What How Much When Comments Stop Taking [...] VISCOSITY HIGH [[id number]] 12/13/2022, Unknown - RODDY: {[id number]{10} [id number] CEMENT SIMPLEX PLAIN (more content not included)... Normal [facility] IntraOperative Documentson 0 12-14-2022 IntraOperative Documents [id number]#1. 00CD:127 Normal [facility] Lyteson 12-14-2022 Anion gap [Moles/Vol] 10 mmol/L Normal 6-16 [facility] Comment on above: Performed By: #### 2 479307, 0001803, 0803519, 81582272, 9977917, 2157844 ####[facility] [address] [place] [address] Chloride [Moles/Vol] 101 mmol/L Normal 101-111 [facility] Comment on above: Performed By: #### 2 212277, 8874312, 2074029, 70446966, 4465657, 1462505 ####[facility] [address] [place] [address] CO2 [Moles/Vol] 27 mmol/L Normal 21-31 [facility] Comment on above: Performed By: #### 2 974282, 0885188, 3491254, 21497281, 4291773, 4484808 ####[facility] [address] [place] [address] Potassium [Moles/Vol] 3.5 mmol/L Normal 3.5-5.3 [facility] Comment on above: Performed By: #### 2 519287, 2344902, 4906441, 06827571, 5581422, 3199689 ####[facility] [address] [place] [address] Sodium [Moles/Vol] 134 mmol/L Low 135-145 [facility] Comment on above: Performed By: #### 2 192047, 9762278, 5971173, 29966686, 3223996, 4417165 ####[facility] [address] [place] [address] Patient Education - Texton 0 12-14-2022 Patient Education - Text 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 It is therefore advised not to drive until after your first office visit following surgery FOLLOW-UP OFFICE VISIT: __ Gwyn Garcia, DO [facility] [address] [place] [address] Reviewed: 12-04 aspirin (oral) ( pir in) Arthritis Pain, Aspi-Cor, Aspir-Low, Ivy Plus, Durlaza, Ecotrin, Miniprin, Vazalore What is the most important information I should know about aspirin? Aspirin can cause Mark's syndrome, a serious and sometimes fatal condition in children. What is aspirin? Aspirin is a salicylate (kj-TID-bs-ate) that is used to treat pain, and [...] planned surger (more content not included)... Normal [facility] Preoperative Documentson Preoperative Documents [id number]#1. 00CD:127 Normal [facility] Progress Note-Physicianon Progress Note-Physician Patient: CECI [...] All Problems Knee osteoarthritis / SNOMED CT 522072734 / Confirmed Hypothyroid / SNOMED CT 02182263 / Confirmed At risk for falls / SNOMED CT 721280236 / Possible Problem added when Risk for [...] d/c home today with 360 rehab.. Normal [facility] Comment on above: Result Comment: Elec tronically Signed By: Gwyn Garcia DO\.br\Date and Time Signed: 12/14/22 06:58 EDT eGFRon 12-14-2022 GFR/1.73 sq M.predicted among blacks MDRD (S/P/Bld) [Vol rate/Area] mL/min/{1.73_m2} Normal >=59 [facility] Comment on above: Order Comment: Order added by Discern Expert. Result Comment: eGFR is race adjusted. AA=. Performed By: #### 2 808565, 0794876, 9977269, [id number], 2278060, 4513275 ####[facility] [address] [place] [address] GFR/1.73 sq M.predicted among non-blacks MDRD (S/P/Bld) [Vol rate/Area] mL/min/{1.73_m2} Normal >=59 [facility] Comment on above: Order Comment: Order added by Discern Expert. Result Comment: Cadastral Engineer taylor kidney disease could be indicated at eGFR's of less than 60 mL/min/1.73m2. Kidney failure is indicated at less than 15 mL/min/1.73m2. Performed By: #### 2 807420, 1709300, 6765758, 36381968, 2790039, 4517630 ####[facility] [address] [place] [address] ABO/Rhon 12-13-2022 ABO/Rh Positive Invalid Interpretation Code [facility] Comment on above: Performed By: #### 2 842920, 9301607, 36945017, 0276616, 8183187, 9863627 #### [facility] [address] [place] [address] ABO/Rh History Checkon 12-13 ABO/Rh History Check Verified Hx Blood Type Normal [facility] Comment on above: Performed By: #### 2 603617, 5403917, 67194696, 4937188, 2920853, 4775442 #### [facility] [address] [place] [address] ABSCon 12-13-2022 ABSC Gel Interp Negative Normal [facility] Comment on above: Performed By: #### 2 923916, 3977793, 16727540, 2441053, 3971530, 3908953 #### [facility] [address] [place] [address] Blood Bank ID#on 12-13-2022 BBID# [id number] Invalid Interpretation Code [facility] Comment on above: Performed By: #### 2 904012, 1706668, 50785783, 7473855, 3015228, 8483323 #### [facility] [address] [place] [address] Consent for Treatmenton 11-27 Consent for Treatment [id number]#1.0 0CD:127 Normal [facility] H&P Updateon 12-13-2022 H&P Update [id number]#1.0 0CD:127 Normal [facility] Interdisciplinary Note - Arabella n 12-13-2022 Interdisciplinary Note - OT OT six clicks score: 1824=home with ortho 360. Pt completes ADL functional transfers mod A x2 at time of eval with slow pacing. Pt has necessary DME for safety. Plan is to return tomorrow to review full body dressing prior to discharge home. Normal [facility] Main OR Intraoperative Recor don 12-13-2022 Main OR Intraoperative Record IntraOp Document Type FT Summary Primary Physician: Gwyn Garcia DO Finalized Date/Time: 12/13/22 11:05:10 Pt. Name: CECI SPEARS /Sex: 1955 Female Med Rec #: [id number] Physician: Gwyn Garcia DO Financial #: [id number] Pt. Type: A Room/Bed: [place] [address] Admit/Disch: 12/13/22 06:46:46 - Institution: Case Times FT Entry 1 Patient Times In Room 12/13/22 09:31:00 Out Room 12/13/22 11:02:00 Procedure Times Start 12/13/22 10:05:00 Stop 12/13/22 10:54:00 Anesthesia Times Start 12/13/22 09:31:00 Stop 12/13/22 11:02:00 Block Timeout w/ 12/13/22 09:25:00 Anesthesia Last Modified By: Ranjit BAHENA, Linda Calderon 12/13/22 11:01:59 General Comments: BLOCK DONE BY Tammy LONDONO CRNA AT [phone], ASSISTED BY Deena ACOSTA RN; HR= 65, O2= 99%; SPINAL DONE BY Tammy LONDONO CRNA AT 0942 -Clarence LOBATO RN Case Attendance FT Entry 1 Entry 2 Entry 3 Case Attendee Jackie ROSENBERG, Gwyn Herrera DO, CST, Magui Powell Role Performed CONSERVATOR ARTIFACTS Surgeon - Primary DOWEL MAKER/SA Time In 12/13/22 09:31:00 12/13/22 09:31:00 12/13/22 [...] BAHENA, Dennis Irwin, Luci Calderon Role Performed Duplicating Machine Mechanic - Primary Scrub - Primary Staff - [...] OBESITY Primary Procedure Yes Primary Surgeon Gwyn aGrcia DO Start 12/13/22 10:05:00 Stop 12/13/22 10:54:00 [...] thermal o (more content not included)... Normal [id number]\.br\ Usage Data FT \.br\ Implant Site Knee L Knee L Knee L\.br\ Implant Site Comment \.br\ Quantity 1 1 1\.br\ Implant/Explant Date \.br\ Implanted By Gwyn Garcia DO, DO, Michael T Powers DO, Michael T\.br\ Explant Reason \.br\ Biological Implants \.br\ Biological Source \.br\ Donor Number \.br\ MR Classification Unknown Unknown\.br\ Temperature \.br\ Reconstitution \.br\ Method \.br\ Outcomes Met? Yes Yes Yes\.br\ Airbrush Artist Technical Model \.br\ Number \.br\ Last Modified By: [...] CEMENTED AOX\.br\ Serial Number \.br\ Lot Number [id number]\.br\ Load Number \.br\ Airbrush Artist Technical DEPUY DEPUY DEPUY\.br\ Catalog ?# [id number] [...] Method \.br\ Outcomes Met? Yes Yes Yes\.br\ Airbrush Artist Technical Model \.br\ Number \.br\ Last Modified By: [...] \.br\ Outcomes Met? Yes\.br\ Last Modified By: Lnida Lobato RN\.br\ Nuris P 12/13/22\.br\ 10:21:54\.br\ Post-Care [...] AIR Quantity 1\.br\ Aid WARMING SYSTEM UNIT\.br\ Fluid/[place] Unit Mistral warming system Setting 43/HIGH\.br\ Body [...] By: \.br\ Linda Lobato RN 12/13/22 11:05 [facility] Main OR PACU I Recordon 11-27 Main OR PACU I Record PACU Phase I Document Type FT Summary Primary Physician: Gwyn Garcia DO Finalized Date/Time: 12/13/22 13:11:19 Pt. Name: CECI SPEARS./Sex: 1955 Female Med Rec #: [id number] Physician: Gwyn Garcia DO Financial #: [id number] Pt. Type: I Room/Bed: [place] [address] Admit/Disch: 12/13/22 06:46:46 - Institution: Case Times [...] By: Rachel Shaver I 12/13/22 13:11 Normal [facility] Main OR Preoperative Recordo n 12-13-2022 Main OR Preoperative Record PreOp Document Type FT Summary Primary Physician: Gwyn Garcia DO Finalized Date/Time: 12/13/22 10:22:35 Pt. Name: CECI SPEARS/Sex: 1955 Female Med Rec #: [id number] Physician: Gwyn Garcia DO Financial #: [id number] Pt. Type: Room/Bed: [place] [address] Admit/Disch: 12/13/22 06:46:46 - Institution: Case Times [...] By: Linda Lobato RN 12/13/22 10:22 Normal [facility] Monitor Recordon 12-13-2022 Monitor Record [id number]#1. 00CD:127 Normal [facility] Monitor Record [id number]#1. 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 [facility] Comment on above: Result Comment: [...] Room in stable and satisfactory condition.. Normal [facility] Comment on above: Result Comment: Elec tronically Signed By: Gwyn Garcia DO\.br\Date and Time Signed: 12/13/22 11:01 EDT Progress Note-Physicianon Progress Note-Physician Patient: CECI SPEARS Age: 67 years Sex: Female : 1955 Associated Diagnoses: None Author: MD Margot, Andrew Browne Postoperative Information Postoperative disposition: Postoperative disposition: To PACU. Optimetrix number: Optimetrix number [id number]. Anesthetic utilized: General. Health Status Allergies: Allergic [...] when meets criteria ( To home ). [facility] Comment on above: Result Comment: [...] BID, # 20 cap(s), Refills(s) 0, Pharmacy: [facility]/pharmacy #[id number], 160, cm, 08/09/22 5:49:00 EST, Height/Length Dosing, 114.3, kg, 08/09/22 5:49:00 EST, Weight Dosing Colace 100 mg Cap: 100 mg = 1 cap(s), Oral, BID, # 20 cap(s), Refills(s) 0, Pharmacy: [facility]/pharmacy #[id number], 160, cm, 08/09/22 5:49:00 EST, Height/Length Dosing, 114.3, kg, 08/09/22 5:49:00 EST, Weight Dosing Keflex 500 mg Cap: 500 mg = 1 cap(s), Oral, QID, Start the day after knee surgery, X 5 day(s), # 20 cap(s), Refills(s) 0, Pharmacy: [facility]/pharmacy #[id number], 160, cm, 08/09/22 5:49:00 EST, Height/Length Dosing, 114.3, kg, 08/09/22 5:49:00 EST, Weight Dosing Percocet 5 mg-325 mg oral tablet: See Instructions, 50 tab(s), Refill(s) 0, Take one to two every 4 hours as needed for pain from knee surgery, [facility]/pharmacy #[id number], 160, cm, 08/09/22 5:49:00 EST, Height/Length Dosing, 114.3, kg, 08/09/22 5:49:00 EST, Weight Dosing Percocet 5 mg-325 mg oral tablet: See Instructions, 50 tab(s), Refill(s) 0, take one to two every 4 hours as needed for knee replacement pain, [facility]/pharmacy #[id number], 160, cm, 08/09/22 5:49:00 EST, Height/Length Dosing, 114.3, kg, 08/09/22 5:49:00 EST, Weight Dosing aspirin 325 mg Tab: 325 mg = 1 tab(s), Oral, Daily, Start the day after knee surgery, X 30 day(s), # 30 tab(s), Refills(s) 0, Pharmacy: [facility]/pharmacy #[id number], 160, cm, 08/09/22 5:49:00 EST, Height/Length Dosing, 114.3, kg, 08/09/22 5:49:00 EST, Weight Dosing Documented Medications Documented levothyroxine 137 mcg (0.137 mg) Tab: 137 mcg = 1 tab(s), Oral, Daily, Refills(s) 0, Thyroid metoprolol 25 mg ER Tab: 25 mg = 1 tab(s), Oral, Daily, High blood pressure Problem list: All Problems Hypothyroid / SNOMED CT 49717289 / Confirmed Knee osteoarthritis / SN[place]ED [place] [address] (more content not included)... Normal [facility] Comment on above: Result Comment: Elec tronically Signed By: MD Margot, Andrew Browne\.br\Date and Time Signed: 12/13/22 15:00 EDT Urinalysison 12-13-2022 Bacteria LM Ql (Urine sed) TRACE Normal Trace [facility] Comment on above: Performed By: #### 1 [id number] #### [facility] [address] [place] [address] Bilirubin Ql (U) Negative Normal Negative [facility] Comment on above: Performed By: #### 1 [id number] #### [facility] [address] [place] [address] Clarity (U) CLEAR Normal Clear [facility] Comment on above: Performed By: #### 1 [id number] #### [facility] [address] [place] [address] Color (U) YELLOW Normal Yellow [facility] Comment on above: Performed By: #### 1 [id number] #### [facility] [address] [place] [address] Epithelial cells.squamous LM.HPF (Urine sed) [#/Area] 0-2 Normal 0-2 [facility] Comment on above: Performed By: #### 1 [id number] #### [facility] [address] [place] [address] Glucose Test strip (U) [Mass/Vol] Negative Normal Negative [facility] Comment on above: Performed By: #### 1 [id number] #### [facility] [address] [place] [address] Hemoglobin Ql (U) Negative Normal Negative [facility] Comment on above: Performed By: #### 1 [id number] #### [facility] [address] [place] [address] Ketones (U) [Mass/Vol] Negative Normal Negative [facility] Comment on above: Performed By: #### 1 [id number] #### [facility] [address] [place] [address] [place].plasma/Lith ium.RBC (Bld) [Mass ratio] 0-3 Normal 0-3 [facility] Comment on above: Performed By: #### 1 [id number] #### [facility] [address] [place] [address] Mucus Ql (Urine sed) TRACE Normal [facility] Comment on above: Performed By: #### 1 [id number] #### [facility] [address] [place] [address] Nitrite Ql (U) Negative Normal Negative [facility] Comment on above: Performed By: #### 1 [id number] #### [facility] [address] [place] [address] pH (U) 6.0 [pH] Invalid Interpretation Code 5.0-9.0 [facility] Comment on above: Performed By: #### 1 [id number] #### [facility] [address] [place] [address] Protein (U) [Mass/Vol] Negative Normal Negative [facility] Comment on above: Performed By: #### 1 [id number] #### [facility] [address] [place] [address] Specific gravity (U) [Rel density] 1.020 Invalid Interpretation Code 1.005-1.030 [facility] Comment on above: Performed By: #### 1 [id number] #### [facility] [address] [place] [address] Type of Urine collection method Clean Catch Normal [facility] Comment on above: Performed By: #### 1 [id number] #### [facility] [address] [place] [address] Urobilinogen Qn (U) 0.2 {Tyson'U}/dL Normal 0.0-1.0 [facility] Comment on above: Performed By: #### 1 [id number] #### [facility] [address] [place] [address] WBC Auto Ql (U) 1+ Abnormal Negative [facility] Comment on above: Performed By: #### 1 [id number] #### [facility] [address] [place] [address] WBC LM.HPF (Urine sed) [#/Area] 6-15 Abnormal 0-5 [facility] Comment on above: Performed By: #### 1 [id number] #### [facility] [address] [place] [address] XR Knee 1 or 2 Views Lefton [...] mGy = na DAP = na Normal [facility] Inpatient Patient Summaryon 12-08-2022 Inpatient Patient Summary [address] [address] [facility] Clinical Discharge Instructions PERSON INFORMATION Name: CECI SPEARS [facility]#:[id number] PHYSICIANS Admitting Physician: Gwyn Garcia DO Attending Physician: Gwyn Garcia DO PCP: CAMILLE WILLIAMSON MD Discharge Diagnosis: Localized osteoarthritis of left knee Comment: PATIENT EDUCATION INFORMATION Instructions: Cam - Total Knee Arthroplasty (CUSTOM) Medication Leaflets: Follow up: With: Address: When: Gwyn Garcia [address] [place], [place] [id number] [facility] (1) Comments: Keep scheduled appointment Type Location Start [facility] Surgery [facility] 12/13/2022 10:00 AM 12/13/2022 [...] Tablets By Mouth every day. Comment: Normal [facility] Outpatient Surgery Discharge Instructionon 12-08-2022 Outpatient Surgery Discharge Instruction [address] [address] Patient Discharge Instructions PERSON INFORMATION Name: CECI [...] Follow up: With: Address: When: Gwyn Garcia [address] [place] [address] Business (1) Comments: Keep scheduled appointment Type Location Start [facility] Surgery [facility] 12/13/2022 10:00 AM 12/13/2022 [...] to serve you. Thank you for choosing [facility] HERE ARE THE MEDICATION CHANGES THAT [...] Mouth every day. PATIENT EDUCATION INFORMATION Instructions: [place] DISCHARGE INSTRUCTIONS TOTAL KNEE [...] or eran (more content not included)... Normal [facility] Outside Labson 12-07-2022 Outside Labs [id number]#1. 00CD:127 [facility] Consent for Procedure/Surger yon 12-06-2022 Consent for Procedure/Surgery [id number]#1. 00CD:127 Normal [facility] Progress Note-Physicianon Progress Note-Physician Patient: CECI [...] BID, # 20 cap(s), Refills(s) 0, Pharmacy: [facility]/pharmacy #[id number], 160, cm, 08/09/22 5:49:00 EST, Height/Length Dosing, 114.3, kg, 08/09/22 5:49:00 EST, Weight Dosing Keflex 500 mg Cap: 500 mg = 1 cap(s), Oral, QID, Start the day after knee replacement surgery, X 5 day(s), # 20 cap(s), Refills(s) 0, [facility] 160, cm, 08/09/22 5:49:00 EST, Height/Length Dosing, 114.3, kg, 08/09/22 5:49:00 EST, Weight Dosing Percocet 5 mg-325 mg oral tablet: See Instructions, 50 tab(s), Refill(s) 0, take one to two every 4 hours as needed for knee replacement pain, [facility]/pharmacy #6177, 160, cm, 08/09/22 5:49:00 EST, Height/Length Dosing, 114.3, kg, 08/09/22 5:49:00 EST, Weight Dosing aspirin 325 mg Tab: 325 mg = 1 tab(s), Oral, Daily, Start the day after knee replacement surgery, X 30 day(s), # 30 tab(s), Refills(s) 0, [facility], 160, cm, 08/09/22 5:49:00 EST, Height/Length [...] list: All Problems Hypothyroid / SNOMED CT 29598022 / Confirmed Knee osteoarthritis / SNOMED CT 316775016 / Confirmed Resolved: History of breast cancer / SNOMED CT 3703844467 Histories Past Medical History: No active or resolved past medical history items have been selected or recorded. Family History: (more content not included)... Normal [facility] Comment on above: Result Comment: Elec tronically Signed By: Cristóbal Gunn DO, Michoacano Muhammad\.param\Date and Time Signed: 09/05/22 13:16 EST Progress Note-Physician Patient: CCEI SPEARS Age: 67 years Sex: Female : 1955 Associated Diagnoses: None Author: Michoacano Ambrocio Jr, DO Postoperative Information Post Operative Note: Post Anesthesia Care Unit. Anesthetic utilized: General. Health Status Allergies: Allergic Reactions (Selected) No Known Medication Allergies Problem list: All Problems Hypothyroid / SNOMED CT 14782192 / Confirmed Knee osteoarthritis / SNOMED CT 965319010 / Confirmed Resolved: History of breast cancer / SNOMED CT 1408625897 Physical Examination Vital Signs 08/30/2022 14:00 EST [...] Ap (more content not included)... Normal [facility] Comment on above: Result Comment: Elec tronically Signed By: Cristóbal Gunn DO, Michoacano Muhammad\.br\Date and Time Signed: 09/05/22 13:15 EST Coding Summary.on 09-02-2022 Coding Summary. CD:[id number] Gh 0bWw+PGhlYWQ+UF2LPSCmZ 62zmYRyyK2JW9mRKU0BFUB PQEWRJH0CLS1rkCU8QBdiP 2VybiAv RqbjqWSiBC25CIl2XMJ3gB klKFviqN8brMUmB1n7QuUm PK11fW30ZCltRPMrUkY7Mw ZpbjsgbWFy U5iaDvZoeJQqMpk+PHRhYm xlIHdpZHRoPScxMDAlJyBz lFqbEU1dCq6fGDPoKHBzuQ xhcHNlOiBj b2ukLPFxIDurWJ8oyRbvJ3 KgdTF5EMMof5x1Ee13oHX+ SOUlFSN1hZmqRHrtm753Fk Nbt0pvJZN9 bSWwWAllFVB5Z21ll2Z9ZU WmFYKmJJG0jVM0vZ1zrVuq xulkZ8JuiRDlHoC9CQR3kN HqzL9dfKvu ofutiY3oZrk+A71YSI1VQY AAUG0SEah5T9AtIocdpML+ FU63HUYsEP51qBDesPKor8 hlgKl5WmLn ZIUjJPD9qRqbTWwor5XyYB TsA53jwIMuk1I0AEChqDts yKGgQgKkzPF7iH1fKXlznn zor9uepwms Uxsuo3ircf41tS11U85kGJ yeIBFiHJL5WECmXEThaPko wg7ddF5uIy3+JJbqi5bti2 niySz2YlAn ZTXbkcYdaMiqLBA1e7ZoKl 89H2OhyFgye2ZwEwu3rh67 mNKje9K8zKS9QAjsXRFkaZ 6aBNmzNxA9 LHTvAwQyqZ56kSSaIJoiEb 7qcDesrUpeMH2cOJAhoeut ETJmhR3rEWVhtFAikHznXX 4wNTBpbjtm y186PtIdAHH4PCOggQGrI0 HbeD1bBoMnFBOrFNEmM1Ep eWVkGPcdO657GDwuUiI4XE ZuxaUwP3Rw VSBbrRvrJnN6s9X0Vo5Ty8 YdvtlsIQE8VHsiQDBpLkN5 OqIaNiE8T5StIev3GOJmkP euQB7nG4Kd DXDrywympkwdyQQ7MCEwGX PfdG48jXWgQHodEm1oa2X1 b768EGZmNDRhhH50If5owA ogMTBwdCBU zD5ntjcgl9uouxlbTkDqLU ZqXEd6SIb8YPMkoGzfSgZv SNM7TuY5RBA4kMHkyA1bcW eljosahS7v Oyc+J55nkT4uZDK1OTZ2jm rzMUQkjhBoGV21HA35T1Cl PjwvdGFibGU+PGRpdiBzdH gvRI9aZqTr t1olj9JvWEogN3NqJGQyAW qaHsp8CYIhHFT1dMI1zL3t PPCzEQhmv7V2nKL2X2Mban Pnbh8ei3sj PVLnTStmS77anPOae9V2JM MthVD1ELTluKylIyYgsX52 Oyc+UITmwRrlp0BoPwgza4 gbg4tvuTr6 JgJlDDSvmiRusLqnAWN4f9 FrRy48R32wIElcMWXuPTEs OWMiTHXgrZahyp4vbB3pNg 8+PGNvbCB3 lPV1wL1hZOOmEhB4JKckQ9 02PkYgxWJxYjqma7jmy9pr dVk8OhGkEVSsckZtaTrmPY X9d2WaJg78 X12eTFtgAPLnLMApCANyEX DvvHltbz5bmG2cDu7+PC9j n4eiri11fW59lTS+PHRkIH D5hKrvKGro DPMisZ9iXNphNwU2OGZrUr HpcX32zFYxMWrdLk1xtNkn wTbzBE1kJBZptydqx903Nz Ipa0dxGFTz tEGtWVnvFDP0H00hl3M6ZW IyWKIhDKU1nNP3fN5bmOzl bjogbGVmdDsgdmVydGljYW hzSGhuF842 IHRvcDsnPlBhdGllbnQgTm AlOYy6S6RfWiw8TDFjqGvu GU5bsCNcTNdtBp6wrRcydM usIF4pASQz ikfae606GrBbc6loHHVktY PqWLjfTAL0G03ff9L1SBIe VLFcHSI8sPJ6dJ6urNvatq ogbGVmdDsg tiNttKxxRUivSZavJ164AY RvcDsnPkJpcnRoIERhdGU6 EV20OW74uIWzg7G4rGG2B3 BhZGRpbmct elitaKF0WHYnFECemV44Co 9pfYjvMb3fFQEyOSC9WTSf tOLoT3NnxQ6eFzUwWCTnIM UbT8WceGRr CTjdP396JHziHuZ6RZHpih KnK5IwAFTbxNayRsL8k5R3 Cp4AZ4O3SY98YW36pOQhm9 Q6kCL5H2Ug PJJfrtxxkiyfuVB5AEUjOH FcmK05Em6bgZanMp3uCMUv GSU9SSEwkZLbY3BvnV1wSy AjMDAwMDAw F0BfyVJaJMpjJ547DYenRz P8JJNqkjVaU8JlKLUquHsd GoZ6a8J7Aj7SIHh7QI07XY 34wNDxz4J4 cRH3M0ZfPPErotegodlidI I1FFAxRXCqiN57Cb7joHuo Be4wRBTcLBN3EEJgiUIjZ5 VusA3xNwFr PECbQDRjV6HneYFmGGvnL8 57AEmfEyF6QSOazoLdV4Ct ECCuaFgdPxU9g8E2Cs7PNE OyHX44UFZ7 sGC3NH71CA76M2ToFanpaN FibGU+PHRhYmxlIHdpZHRo NYekJFIyVxIpeGyiEV2oFn 9yZGVyLWNv aXrfwVDkRcVay8yfWFLmVS shHH9maKadT2PaxXE9DLTj c7b3Bs34P20oS3AmeMV+PG VdzFO7hBM7 oE9eWeRdQjA3BNscK809Xr TdcSBaSzorl8ugu8roaPm0 CtE6XNPwvuUvlNxtNWE7l0 QcSk65P52r IHdpZHRoPSIxNSUiIHZhbG itvf3dtO9oQf5+PGNvbCB3 oDG5eZ6bGoHlAjA8YTlhE9 49InRvcCIv Ianqy8asf6mcdFm3UzNoCV RftuCygTopJFI2w8ApBg11 S5SwlTbfh0BiPho1en13dO Hjy7F9mNZ1 Y1FfGUVdgyoidANatHuzOS 5eYBGcahbfFBPdjO4mEDVv I9t3FaIgWdL2NYukI6Jbtb Y4LLMwbCYy MJgxPZZ1O73df6B7NYPdEC UePBO0xLS6fK5kjCnkyisb bGVmdDsgdmVydGljYWwtYW wlT228CYNv gEaxHQCdhH9fRQKagKKelD uwSV3eSOCldxxcEaHIFZTJ NWNJLYNiWFQXR6PBAX55HW 08qDNlv8U9 dBI4M0KxZLBqtrvirjiomR S5JVIrEBZqlW51rPFsTLuc Oo5no8A6n562IAOaAIYmtG 44Sk5pnNoy UIFlsWSXdS2uolhag9rjps baGeJjGDKjIGp2SGj4QIAn xEqqDbVeRKP1HyS2NFM8wE NnwT9fjOlf ranvkD2hXer+MDYvMDUvMT p5NXdhkES+NULsIRO3tOtp ADxzYZVncT9aCEQvH8b0Ar KeIqW6TCtp J3IhFNFsafvhQk36aB5tCt ViItB3RHvqY8YjhuZ6NONf vZEpILjuXMG5I23fp2P1LP MwMDAwMDA7 tFC1lG9pfIhtsafxrAQmcP wnhlXpjLkcPJlzKDpnA996 QYWkzWeqJjZ0ULqaKMMeZL 52MT61dBVd t6Y0sPN6H2PbIAExwgyxxs gvoVN9OTDpKZSmgB98yRMr RSvqJq1pg4O3p217VOBxST XfiG64Rc8g wHqtHSDtyPYMqC2ekvvsl6 lqsvkcFfHwYSAwWLi0BSi1 FCUgdRqwKuYwBHB9KuU4TG K6oMFjrN2m xTekbyyaaL2nOza+RmVtYW zuFX54LR93eGXby7S5sRA6 L9WnZYTsvxqzpnlgnBE6JB CtSREmxF34 mZYaNNcoEf7kt6L7e324AU SaDFNdkP06Du1atLmcIHIx nZCSzO8apdabk6lgtlwrJq AwMDAwMDt0 GNg8LXVreAceZxKgGSL9Mo B9UBW8zMPdiT2rtNmmarnh iK0jDdt+ES0gUCIuII35AF 01RN52F0Mu PjwvdGFibGU+PHRhYmxlIH dpZHRoPScxMDAlJyBzdHls MJ6yGg2dGNPrKUWgyJongH NtPoZua3hq ZVKwKFdyZF1xjZzjS7ZkbJ Z2DFNpv5e7Ht77U94tG8Nv dXA+BZMrqHA3wML7xY3tOs LnWhJ7XZvv N943UiLzmKDxBusnw2mku5 tyqDf7LgSdYRYsjzHxgNlr GPM8r2OmFo67A41wSMtqKG RoPSIyMCUi ALOgqOcimj1qeV1fXp4+PG ZhkHP9mMW6tG2rJyPxOkV1 UMriO483KtGneYQuSntlK9 9xT0MbrYB+ ASTeZgy0KMWloWyiMU8ciA AgGEdiUy1wZAZ8IbXxPzBb KEufD2AgITSqvjyghfmygW V3SJKuMKMa oP62Td7ttTbeVo5uDJJyGX G3WPSczIRwP5QqyW3lHrAx FFCbQORlO2XftVLoZDufB2 66AFnnGfU9 AKXbcwWxV5RiRDVnbWihQb L0t3W9Qu3FrZnlrAFrYK9f IbKoAHo5I5FkRfd6TFGosU rhRQ4ggJVt VRmmTc0vaMbykWtvOL3wOP Ikpryts939ZxHaz0mrSIOy wQAdNCayFNG1E62gs8K5NE MwMDAwMDA7 dRD2lI3jlGtegxcgvLYaiI fdcpUctKghPFlhUVwoE439 XUOgvSxgVxINUcm0E2HqLh h7OVBgdMdw OP9qtUQiUZmyMk0juBdkrJ srLK2dIPNqibzih449HyLp v9leEPKxkLAzIBfsRWJ8D4 6iq7N2HFMg XDBwZHQ6mBF3gC8ucWezxu ogbGVmdDsgdmVydGljYWwt RCkeD483OCYwuIuoQn4AQf q5B7TgCum4 VDNcwCdhUY1ftZXrCFfmLs 9edFtvxZthYU3vASJkoxad g912AoYxp8tjGSUviBAxCO klTDJ4W28z n9F5FDFmAFVbPVD9xDE6cA 1hbGlnbjogbGVmdDsgdmVy dReaZYwrWEwsM026TQIadG snPlBheWVy OjwvdGQ+EI54iq83T8BpUb cdVob1GFJnFAM8xVD0qW7f RAYaLDnrz2P1rAS9Q6Gnbs Ehsi1jw2yl YXBz (more content not included)... Normal [facility] IntraOperative Documentson 0 09-02-2022 IntraOperative Documents [id number]#1.0 [id number]:127 Normal [facility] IntraOperative Documentson 0 09-01-2022 IntraOperative Documents [id number]#1. 00CD:127 Normal [facility] Auto Diffon 08-31-2022 Basophils/100 WBC (Bld) 0.2 % Normal 0.0-2.0 [facility] Comment on above: Order Comment: Order Added by Discern Expert. Performed By: #### [id number] #### [facility] [address] [place] [id number] Basophils/Leukocyte s Auto (Bld) [Pure # fraction] 0.0 E9/L Normal 0.0-0.2 [facility] Comment on above: Order Comment: Order Added by Discern Expert. Performed By: #### 2 940000, 9997389, 20686789, 3124470, 9389664, 2430081 #### [facility] [address] [place] [address] 13980 Eosinophils/100 WBC (Bld) 0.1 % Normal 0.0-8.0 [facility] Comment on above: Order Comment: Order Added by Discern Expert. Performed By: #### 2 421207, 3179053, 78605809, 8176274, 3881317, 1071705 #### [facility] [address] [place] [address] 54502 Eosinophils/Leukocy julia Auto (Bld) [Pure # fraction] 0.0 E9/L Normal 0.0-0.5 [facility] Comment on above: Order Comment: Order Added by Honey Expert. Performed By: #### 2 374638, 1911609, 90897204, 6637480, 4515061, 0919809 #### [facility] [address] [place] [address] 44247 Lymphocytes/100 WBC (Bld) 10.8 % Low 14.0-50.0 [facility] Comment on above: Order Comment: Order Added by Honey Expert. Performed By: #### 2 075950, 2920351, 78874566, 4838600, 9557496, 6889992 #### [facility] [address] [place] [address] 22956 Lymphocytes/Leukocy julia Auto (Bld) [Pure # fraction] 1.0 E9/L Normal 1.0-4.0 [facility] Comment on above: Order Comment: Order Added by Honey Expert. Performed By: #### 2 383291, 5011853, 45261564, 4706197, 1017265, 7866120 #### [facility] [address] [place] [address] 66629 Monocytes/100 WBC (Bld) 8.1 % Normal 4.0-14.0 [facility] Comment on above: Order Comment: Order Added by Discern Expert. Performed By: #### 2 141778, 2760123, 88346165, 3230040, 2247649, 0330376 #### [facility] [address] [place] [address] Monocytes/Leukocyte s Auto (Bld) [Pure # fraction] 0.8 E9/L Normal 0.2-1.0 [facility] Comment on above: Order Comment: Order Added by Discern Expert. Performed By: #### 2 927317, 5129449, 33230836, 4101859, 4604555, 8873155 #### [facility] [address] [place] [address] Neutrophils/100 WBC (Bld) 80.8 % High 36.0-75.0 [facility] Comment on above: Order Comment: Order Added by Discern Expert. Performed By: #### 2 280307, 9258780, 28585794, 0637809, 0943204, 7862403 #### [facility] [address] [place] [address] Neutrophils/Leukocy julia Auto (Bld) [Pure # fraction] 7.8 E9/L High 2.0-7.5 [facility] Comment on above: Order Comment: Order Added by Discern Expert. Performed By: #### 2 166965, 2533161, 34236736, 5838742, 8661326, 1958263 #### [facility] [address] [place] [address] BUNon 08-31-2022 Urea nitrogen [Mass/Vol] 15 mg/dL Normal 5-21 [facility] Comment on above: Performed By: #### 2 265076, 9191336, 6591569, 8161354, 25753052, 8127670 ####[facility] [address] [place] [address] Blood Bank Slipon 08-31-2022 Blood Bank Slip [id number]#1. 00CD:127 Normal [facility] CBC w/ Auto Diffon Erythrocyte distribution width (RBC) [Ratio] 13.9 % Normal 10.9-14.2 [facility] Comment on above: Performed By: #### 2 095188, 2695077, 3956662, 3413174, 91225777, 2751553 ####[place] [address] [place] [address]102457 Hematocrit (Bld) [Volume fraction] 41.7 % Normal 34.0-46.0 [facility] Comment on above: Performed By: #### 2 221908, 0310783, 0621104, 6834698, 15366912, 5753983 ####[place] [address] Hemoglobin (Bld) [Mass/Vol] 14.0 g/dL Normal 12.0-16.0 [facility] Comment on above: Performed By: #### 2 145385, 4514715, 2792447, 0957025, 72122636, 4748776 ####[place] [address] MCH (RBC) [Entitic mass] 29.7 pg Normal 27.0-34.0 [facility] Comment on above: Performed By: #### 2 203821, 3571795, 5088204, 8212922, 75407670, 6744843 ####[place] [address] MCHC (RBC) [Mass/Vol] 33.7 g/dL Normal 31.4-36.0 [facility] Comment on above: Performed By: #### 2 616716, 0647173, 2665019, 7621093, 76559816, 3073017 ####[address] [address] MCV (RBC) [Entitic vol] 88.2 fL Normal 80.0-100.0 [facility] Comment on above: Performed By: #### 2 681642, 0491725, 7906306, 2665474, 00075854, 6376260 ####[place] [address] Platelet mean volume (Bld) [Entitic vol] 7.9 fL Normal 6.4-10.8 [facility] Comment on above: Performed By: #### 2 561467, 6975641, 5396942, 9547465, 71131943, 6875683 ####[facility] [address] [place] [address] Platelets (Bld) [#/Vol] 240.0 E9/L Normal 150.0-500.0 [facility] Comment on above: Performed By: #### 2 824410, 7951538, 0121302, 7390399, 72196499, 6195687 ####[facility] [address] [place] [address] RBC (Bld) [#/Vol] 4.7 E12/L Normal 4.3-5.9 [facility] Comment on above: Performed By: #### 2 062206, 2546780, 4599725, 7407513, 85649685, 5799006 ####[facility] [address] [place] [address] WBC corrected for nucl RBC Auto (Bld) [#/Vol] 9.7 E9/L Normal 4.0-11.0 [facility] Comment on above: Performed By: #### 2 951340, 0414944, 0915094, 6338604, 86503523, 9310983 ####[facility] [address] [place] [address] CHEMISTRYOrdered By: SYSTEM SYSTEM on 08-31-2022 Anion [...] [Vol rate/Area] mL/min/1.73 m2 Normal >=59mL/min/1.73 m2 [facility] Chem S GFR/1.73 sq M.predicted among non-blacks MDRD (S/P/Bld) [Vol rate/Area] mL/min/1.73 m2 Normal >=59mL/min/1.73 m2 [facility] Chem S Potassium [Moles/Vol] 4.2 mmol/L Normal 3.5 - 5.3 mmol/L [facility] Remisol Sodium [Moles/Vol] 134 mmol/L Low 135 - 145 mmol/L [facility] Remisol Urea nitrogen [Mass/Vol] 15 mg/dL Normal 5 - 21 mg/dL [facility] Remisol Consent for Anesthesiaon Consent for Anesthesia [id number]#1.0 0CD:127 Normal [facility] Creatinineon 08-31-2022 Creatinine [Mass/Vol] 0.8 mg/dL Normal 0.5-1.3 [facility] Comment on above: Performed By: #### 2 498961, 6090815, 0053794, 5985611, 61557322, 8220994 ####[facility] [address] [place] [address] Discharge Instructionson Discharge Instructions [id number]#1 .00CD:127 Normal [facility] Discharge Note-Nursingon Discharge Note-Nursing CECI SPEARS [...] AM EST Comments: Keep scheduled appointment Where: [address] [place], [place] [id number] Business (1) Follow Up with CAMILLE WILLIAMSON When: 09/03/2022 09:00 AM EST Where: [address] [place], [place] [id number] Business (1) Medications What How Much When Why Instructions Next Dose Unchanged acetaminophen-oxycodon e (Percocet 5 mg-325 mg oral tablet) See instructions Localized osteoarthritis of right knee take one to two every 4 hours as needed for knee replacement pain Pickup at [facility]/pharmacy #[id number] NEEDED FOR PAIN, AFTER 10 AM Unchanged aspirin (aspirin 325 mg Tab) 1 Tablets By Mouth Every day Duration: 30 Days Start the day after knee replacement surgery Pickup at [facility]/pharmacy #6177 09/01 @ 9 AM Unchanged cephalexin (Keflex 500 mg Cap) 1 Capsules By Mouth 4 times a day Duration: 5 Days Start the day after knee replacement surgery Pickup at [facility]/pharmacy #6177 08/31 @ 12 PM Unchanged docusate (Colace 100 mg Cap) 1 Capsules By Mouth 2 times a day Pickup at [facility]/pharmacy #6177 08/31 @ 9 PM Unchanged levothyroxine (levothyroxine 137 mcg (0.137 mg) Tab) 1 Tablets By Mouth Every day 09/01 @ 9 AM Unchanged metoprolol (metoprolol 25 mg ER Tab) 1 Tablets By Mouth Every day 09/01 @ 9 AM [id number] [address], [place] [id number] [phone] Test Results CBC BMP WBC: 9.7 E9/L [...] HIGH [6194-1-010] (2), 08/30/2022, Unknown - RODDY: {01}[id number]{10} [id number]{17}020709 Education Materials [place] [place] [facility] DISCHARGE INSTRUCTIONS TOTAL KNEE ARTHROPLASTY INCISION CARE: Mepilex dressing can get wet with showers. Please remove 10 days after surgery per instruction sheet. If poly present, please coordinate removal 21 days after surgery with office staff. Please notify the office if any increase i (more content not included)... Normal [facility] HEMATOLOGYOrdered By: SYSTEM SYSTEM on 08-31-2022 [...] 240.0 E9/L Normal 150.0 - 500.0 E9/L [facility] HemeAutoSS RBC (Bld) [#/Vol] 4.7 E12/L Normal 4.3 - 5.9 E12/L FT HemeAutoSS WBC corrected for nucl RBC Auto (Bld) [#/Vol] 9.7 E9/L Normal 4.0 - 11.0 E9/L FT HemeAutoSS Interdisciplinary Note - Karsten e Manageron 08-31-2022 Interdisciplinary Note - Driller Machine CRM to room to discuss DC planning. Patient is awake, alert and oriented. She has no family in room. She is from home, lives with Son. Has family transportation at [place]. Patient verified home DME, insurance and PCP. [...] ambulating to BRP. Message was sent to Tamym Mendiola to inform her and to ask about DC planning. If patient should stay another day or change DC plan, awaiting to hear back Per primary Nurse Dr Bojorquez called and patient will DC home today She was requesting to stay over night Normal [facility] Comment on above: Result Comment: Elec [...] OT needs. DC inpatient OT services. Normal [facility] IntraOperative Documentson 0 08-31-2022 IntraOperative Documents [id number]#1.0 0CD:127 Normal [facility] Lyteson 08-31-2022 Anion gap [Moles/Vol] 11 mmol/L Normal 6-16 [facility] Comment on above: Performed By: #### 2 130482, 7067849, 8061499, 8270370, 69902650, 7672165 ####[facility] [address] [place] [address] Chloride [Moles/Vol] 101 mmol/L Normal 101-111 [facility] Comment on above: Performed By: #### 2 347376, 9089706, 5836940, 2806654, 58320009, 9146414 ####[facility] [address] [place] [address] CO2 [Moles/Vol] 26 mmol/L Normal 21-31 [facility] Comment on above: Performed By: #### 2 120603, 8891358, 1939990, 6858098, 75192061, 7002137 ####[facility] [address] [place] [address] Potassium [Moles/Vol] 4.2 mmol/L Normal 3.5-5.3 [facility] Comment on above: Performed By: #### 2 635851, 3055918, 5317436, 2283123, 39262681, 0962676 ####[facility] [address] [place] [address] Sodium [Moles/Vol] 134 mmol/L Low 135-145 [facility] Comment on above: Performed By: #### 2 782356, 6648003, 7597999, 8724039, 38712236, 1369896 ####[facility] [address] [place] [address] Operative Reporton Operative Report SURGERY DATE: 08/30/2022 [...] is indicated. Family members are present from [place] to assist with her care perioperatively. Request [...] PATIENT CONDITION: Satisfactory Wesley Conte Dictated: 08/30/2022 [id number] Transcribed: 08/31/2022 cc:Camille Williamson M.D. [facility] Comment on above: Result Comment: [...] the proposed procedure. 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 It is therefore advised not to drive until after your first office visit following surgery FOLLOW-UP OFFICE VISIT: __ Gwyn Garcia DO [facility] [address] [place] [address] Reviewed: 12-04 [facility] Preoperative Documentson Preoperative Documents [id number]#1.0 0CD:127 [facility] Progress Note-Physicianon Progress Note-Physician Patient: [...] All Problems Knee osteoarthritis / SNOMED CT 079532830 / Confirmed Hypothyroid / SNOMED CT 90204771 / Confirmed Physical Examination Gastrointestinal: Soft, Non-tender. [...] out tomorrow. F/U in 4 weeks.. Normal [facility] Comment on above: Result Comment: Elec tronically Signed By: Gwyn Garcia DO\.br\Date and Time Signed: 08/31/22 07:22 EST eGFRon 08-31-2022 GFR/1.73 sq M.predicted among blacks MDRD (S/P/Bld) [Vol rate/Area] mL/min/{1.73_m2} Normal >=59 [facility] Comment on above: Order Comment: Order added by Discern Expert. Result Comment: eGFR is race adjusted. AA=. Performed By: #### 2 083513, 2282142, 8350354, 4169000, 16229316, 8245911 ####[facility] [address] [place] [address] GFR/1.73 sq M.predicted among non-blacks MDRD (S/P/Bld) [Vol rate/Area] mL/min/{1.73_m2} Normal >=59 [facility] Comment on above: Order Comment: Order added by Discern Expert. Result Comment: Cadastral Engineer taylor kidney disease could be indicated at eGFR's of less than 60 mL/min/1.73m2. Kidney failure is indicated at less than 15 mL/min/1.73m2. Performed By: #### 2 982837, 8989950, 3948691, 0639984, 12935139, 3427328 ####[facility] [address] [place] [address] ABO/Rhon 08-30-2022 ABO/Rh Positive Invalid Interpretation Code [facility] Comment on above: Performed By: #### 2 266021, 0258735, 06087536, 0484162, 7302571, 8176490 #### [facility] [address] [place] [address] ABO/Rh History Checkon 08-30 ABO/Rh History Check Verified Hx Blood Type Normal [facility] Comment on above: Performed By: #### 2 012209, 8968230, 14305015, 6900164, 1348421, 3155592 #### [facility] [address] [place] [address] ABSCon 08-30-2022 ABSC Gel Interp Negative Normal [facility] Comment on above: Performed By: #### 2 584279, 0210110, 14888788, 8487413, 5065254, 7456153 #### [facility] [address] [place] [address] BLOOD BANKOrdered By: Maritza Sepulveda on 08-30-2022 ABO/Rh Interp Positive Invalid Interpretation Code [facility] BB Subsection ABSC Gel Interp Negative (08/30/22 10:25 AM) Normal [facility] BB Subsection Blood Bank ID#on 08-30-2022 BBID# [id number] Invalid Interpretation Code [facility] Comment on above: Performed By: #### 2 720352, 4566284, 44942563, 3678813, 9695107, 6079063 #### [facility] [address] [place] [address] Consent for Treatmenton Consent for Treatment [id number]#1.0 0CD:127 Normal [facility] H&P Updateon 08-30-2022 H&P Update [id number]#1. 00CD:127 Normal [facility] Main OR Intraoperative Recor don 08-30-2022 Main OR Intraoperative Record IntraOp Document Type FT Summary Primary Physician: Gwyn Garcia DO Finalized Date/Time: 09/02/22 08:03:57 Pt. Name: CECI SPEARS/Sex: 1955 Female Med Rec #: [id number] Physician: Gwyn Garcia DO Financial #: [id number] Pt. Type: I Room/Bed: N317/ Admit/Disch: 08/30/22 09:34:47 - 08/31/22 16:41:00 Institution: Case Times FT Entry 1 Patient Times In Room 08/30/22 12:15:00 Out Room 08/30/22 13:45:00 Procedure Times Start 08/30/22 12:41:00 Stop 08/30/22 13:36:00 Anesthesia Times Start 08/30/22 12:15:00 Stop 08/30/22 13:45:00 Block Timeout w08/30/22 11:39:00 Anesthesia Last Modified By: Ranjit BAHENA, Linda Claderon 08/30/22 13:45:09 General Comments: BLOCK DONE BY HOSSEIN FOSTER CRNA AT 1139 , ASSISTED BY King CAMEJO RN; HR = 66 , O2 = 98% -Clarence LOBATO RN 09/02/22 Chart opened to review and send charges LRoth CSFA Case Attendance FT Entry 1 Entry 2 Entry 3 Case Attendee Param ROSENBERG, Hossein Garcia DO, Gwyn Lobato RN, Linda Calderon Role Performed CONSERVATOR ARTIFACTS Surgeon - Primary Duplicating Machine Mechanic - Primary Time In 08/30/22 12:15:00 08/30/22 12:15:00 08/30/22 12:15:00 Time Out 08/30/22 13:45:00 08/30/22 13:33:00 08/30/22 13:45:00 Procedure KNEE TOTAL KNEE TOTAL KNEE TOTAL ARTHROPLASTY(Right) ARTHROPLASTY(Right) ARTHROPLASTY(Right) Comments DR. AMBROCIO SUPERVISING ORIENTATION Last Modified By: Jay DOWEL MAKER, Magui Lobato RN, Linda Lobato RN, Linda 09/02/22 08:01:36 Nuris P 08/30/22 Nuris P 08/30/22 13:45:10 13:45:10 Entry 4 Entry 5 Entry 6 Case Attendee Fabian Church RN, Tonya Bergeron CST, Heath Role Performed Duplicating Machine Mechanic - Primary WAGON WINDER Scrub - Primary Time In 08/30/22 12:15:00 08/30/22 12:15:00 08/30/22 12:15:00 Time Out 08/30/22 13:45:00 08/30/22 13:45:00 08/30/22 13:45:00 Procedure KNEE TOTAL KNEE TOTAL KNEE TOTAL ARTHROPLASTY(Right) ARTHROPLASTY(Right) ARTHROPLASTY(Right) Comments WAGON WINDER STUDENT Last Modified By: Ranjit RN, Linda [...] PRIMARY SCRUB FOR CASE - VSavage LOBATO RNmanager flight operations Protocols FT Pre-Care Text: Implements protective measures [...] - Unil (more content not included)... Normal [facility] Main OR PACU I Recordon Main OR PACU I Record PACU Phase I Document Type FT Summary Primary Physician: Gwyn Garcia DO Finalized Date/Time: 08/30/22 14:52:15 Pt. Name: CECI SPEARS/Sex: 1955 Female Med Rec #: [id number] Physician: Gwyn Garcia DO Financial #: [id number] Pt. Type: A Room/Bed: [facility] Admit/Disch: 08/30/22 09:34:47 - Institution: [...] By: Ana Gonzalez RN 08/30/22 14:52 Normal [facility] Main OR Preoperative Recordo n 08-30-2022 Main OR Preoperative Record PreOp Document Type FT Summary Primary Physician: Gwyn Garcia DO Finalized Date/Time: 08/30/22 12:47:27 Pt. Name: CECI SPEARS/Sex: 1955 Female Med Rec #: [id number] Physician: Gwyn Garcia DO Financial #: [id number] Pt. Type: A Room/Bed: Admit/Disch: 08/30/22 09:34:47 [...] By: Linda Lobato RN 08/30/22 12:47 Normal [facility] Monitor Recordon 08-30-2022 Monitor Record [id number]#1. 00CD:127 Normal [facility] Monitor Record [id number]#1. 00CD:127 Normal [facility] Operative Reporton Operative Report Patient: CECI [...] Room in stable and satisfactory condition.. Normal [facility] Comment on above: Result Comment: Elec [...] DO Transcribed by: AUSTIN Technologist: IDALIA Normal [facility] Inpatient Patient Summaryon 08-26-2022 Inpatient Patient Summary [address] [id number] [facility] Clinical Discharge Instructions PERSON INFORMATION Name: CECI SPEARS PHYSICIANS Admitting Physician: Gwyn Garcia DO Attending Physician: Gwyn Garcia DO PCP: CAMILLE WILLIAMSON MD Discharge Diagnosis: Localized osteoarthritis of right knee Comment: PATIENT EDUCATION INFORMATION Instructions: Cam - Total Knee Arthroplasty (CUSTOM) Medication Leaflets: Follow up: With: Address: When: Gwyn Garcia [address] [place], [place] [id number] [facility] () Comments: Keep scheduled appointment Type Location Start [facility] Surgery [facility] Surgical Services 08/30/2022 12:30 PM 08/30/2022 1:30 PM Confirmed MEDICATION LIST Medications to Continue with No Changes Other Medications diclofenac (diclofenac sodium 75 mg Oral EC Tab) 1 Tablets By Mouth every day. levothyroxine (levothyroxine 137 mcg (0.137 mg) Tab) 1 Tablets By Mouth every day. Comment: Normal [facility] Outpatient Surgery Discharge Instructionon 08-26-2022 Outpatient Surgery Discharge Instruction [address] [address] Patient Discharge Instructions PERSON INFORMATION [...] Follow up: With: Address: When: Gwyn Garcia [address] [place], [place] [phone] Business (1) Comments: Keep scheduled appointment Type Location Start [facility] Surgery [facility] Surgical Services 08/30/2022 12:30 PM 08/30/2022 [...] to serve you. Thank you for choosing [facility] HERE ARE THE MEDICATION CHANGES THAT OCCURRED DURING YOUR HOSPITAL STAY Medications to Continue with No Changes Other Medications diclofenac (diclofenac sodium 75 mg Oral EC Tab) 1 Tablets By Mouth every day. levothyroxine (levothyroxine 137 mcg (0.137 mg) Tab) 1 Tablets By Mouth every day. PATIENT EDUCATION INFORMATION Instructions: [place] [place] [facility] DISCHARGE INSTRUCTIONS TOTAL KNEE [...] Physical Therapy (more content not included)... Normal [facility] Consent for Procedure/Surger yon 08-25-2022 Consent for Procedure/Surgery [id number]#1.0 0CD:127 [facility] Immunization Recordson 08-25 Immunization Records [id number]#1.0 0CD:127 [facility] Outside Recordson 08-25-2022 Outside Records [id number]#1.0 0CD:127 [facility] Coding Summary.on 08-12-2022 Coding Summary. CD:[id number] Gh 0bWw+PGhlYWQ+OA7QGRJnE 33etHIwqQ7EJ6lOTJ5NVYT WQFXIJA3AKG4teDJ0WHejD 2VybiAv HqgppJTkJT03IPj7DEP5yK slHGeayA5hbNLaR8o0TzPg MO42pF15OMzdSPAsUoJ3Ie ZpbjsgbWFy W3cbCcYkrQYzZbt+PHRhYm xlIHdpZHRoPScxMDAlJyBz dLkaLD8qAb1mNCBcMEJmoU xhcHNlOiBj l6otFEIrCQyiND2ptSztZ2 AynQW9RCVza7v8Dw85iJT+ HHNbKGR9zQjvNIynp310In Wif2fbCBB4 cANpGJdtPBF9P19yy3I7XF UxFTFrADW2cUM5hG8drKur zynfG1TnrEXfEoK4UYT1wA IvcY7cwZdw lxjpuA5iSyn+F48NEW1SQX JRIC5RVyp3B6FrYjgzyJB+ MO00LNKxOD80tVWpoVEqu1 eglAf4OlZz GFWxFPP3cBhhGKgkz8QgFG TxB70bcDHne3A8LTBvgKvk jXJzAtJafZZ8yK8eAPidzo noh6jrqwfj Rwnif7toxh64eT82J20qVC lpEFCdRNN3XECiTGLswIbc zs8yeD2xZd2+DStpk0jys0 eotLm0CaUw RUGczyXoeQwwSJU1o1EzXu 38X7YrcAvvj2PpHkc7vf15 eEOqn3Y8hFZ0CHogCYNgvA 4iAKwsCcM3 SZFyByFzxP04oSWyQEchPs 9dfUxsaBnaDR9xFFMgszke HYEnaS1aPVWlqCAikJczOK 4wNTBpbjtm y041KuDrMEO4KIImuLNwS3 PllJ0kEmStXQPgFWUgJ8Rf wYXiNSabH280ZEamUnT5VN RfibUfX1Jk DDLbvZmeWfU8l5O5Ep0Ei9 OvszlvQRD7EZutWBCyYrA5 QsPdMkK0W3AnCjg6UYHopN xmBF4jI3Bh BGGoqjewtnovqUW3TDLwBP FzhB91aDEvXYndRd8nl5B0 o786DKNbKMHcbL23Ba9mgV ogMTBwdCBU iB8uvfunr3coberdInQuET VoPRb4QCg8PJOmnRqqZwWe OAC3RzO7SOB6xZVqlH8nmJ bmkqmuvI1a Oyc+C58vvS9oUFL3YXW5yz rnLSRnigBgZV74VY58B1Rk PjwvdGFibGU+PGRpdiBzdH pcTG6wXtNe l7sxc8PvOUiwB3XzHFRyYC ajUnk5LERxEYU7cFC9jQ0m VJFaSTwrk9A6rNL0W5Vcxf Rtro8sz0df RBAtPEsoY14onNSgh9L4LU WrmOS0PSCatPodVjOneY60 Oyc+MTVlfTffg5XpFnsfh6 oze9tnpJe9 HiHgLMVllgOnaIkhBKP7n1 NgAh68M28oTHvhBTJqITCt MJUhRGBgdJoqwi2tgQ3kZi 8+PGNvbCB3 eQS6uJ2dFIQnKeS0XLfwC3 20OoZvnHYeKkdyp2ets7ya fYt6AgHmLIOamdHzxDymHU Z6c5EzWw69 B95iZSkvVPLtMYHcBVMhTD NdyKdygt7ztI0dBt1+PC9j r0pnle48nE45gQP+PHRkIH P4qFvwESik QAFdgL4lIDcePmZ6ZITkRy RehZ02dUAlVEsyIo3gaAld rKvnKL6wVMCkyentj981Mz Yfc6toXHDa rDOhGHriBFB9I12gb8R6DI FyLDRfONB6zMY4iL3hwWen bjogbGVmdDsgdmVydGljYW inQCcwZ528 IHRvcDsnPlBhdGllbnQgTm FnBEr8C6OzLva6GWShmJbw JC0dpCRdWGxuRo8vdKqpoP akGL6vCLQu hscjy656TsFex5rpYQMegW SsPFvzPMW5U88do4O7EAVu ZHWeBVU7lFN8kA2goTywbe ogbGVmdDsg yiHwyGkkPGlyDYecH744GB RvcDsnPkJpcnRoIERhdGU6 UO05OB73zVBcc9N2rFO1N1 BhZGRpbmct xgsmaYQ3IFZbTGJlyV50Tr 8oeUzbPk1qIMWlFHE7AORt iJDjN5WnbD8pVuLaKKPeDK CoZ8ZbfKRn FChtY256TJrrAlI2GJBbku FlK0JoONSprYjpVbM4m5K5 Ct0CX9G3GW63BC30kAOpy1 F8bCM8Y3Jv AUHgysnckjzraOW2ATXzKZ YfuX25Mi5tqQtzOw5pWBXp YBG9HZXxtZAfN5PpiI9rBw AjMDAwMDAw Q8BaxSJwBKvoZ309CVpvRu P4OWXxsgXqY7DiTTHxaQft AwZ0s3E4Yq2OEZi4RJ79TI 23jWJve7O2 sJW3P7CjRDFqygvzhgiidV K6XOCxUCDolN84Kn6mxFvk At6xILHhPOQ1RLSwlZJtY9 BnpR0iYmYb NOJjLYHfB3JchBMrBWbmG8 59NYfdPxT7GXMxpdYcZ8Eq AZRumDpuAqI9t9S6Px9ZNT DdPI85EBY8 nFX7PK05OA32L3ThRvflyW FibGU+PHRhYmxlIHdpZHRo ANewTBGmDhAhjPfuUN8bEo 9yZGVyLWNv mSgtkILlAfIul4qjWGUyDM uiPT4xrXazB6HvzPY4JFVv x5n7Xa64S28hN7GalED+PG PgcLU1pXW2 fG5tMkErYlK6TQpzL237Og CazZHgUidgk0mbk2nlmXq1 RzH4JRCactGlsZfjZTR8a4 LaDb95Q70k IHdpZHRoPSIxNSUiIHZhbG zlym8usU1wTd6+PGNvbCB3 hSV9jG3cNpAsJzG6HUgwM4 49InRvcCIv Afwga9flg3upsHb9JoSqHJ QkahOydDqnDIW9t5XyPu73 O8JzvJifh1DcBjw0nr38cF Zoe8S0qUU4 N7VpRAMfmojglVZnvRrzJN 0sDGQhsqjnMTVvuJ8jVJAa T3c6RdGlQsL4NOsoM1Zjmu E1PYRidXMx DNitPGX5P23za8S8OVTqNV KgWCK6tIE2mC1yoLtnsgnr bGVmdDsgdmVydGljYWwtYW bvV020TYGi xXnvBKOxoV5sSTWpvHVheW vpON4iIIGkpaxuPrOQYEVQ BIJJYHLaSFZEJ7WUUW28DG 54uVTlz1J4 wQJ5V8QdQXJpqfeukhlnbQ J1EUVfNOAdjL51gHMoHKqa Qs6mt3L6m691DHTeOYAmaO 53Rm7uvNmx ZIMndJSIjE4hyklix1lbdi ayUkWnPHOqMCx0KGn2CQSb dNiuQdLjUCV4RjJ6VWV4xI RsuQ8pnMxv ecexwV8tLev+MDYvMDUvMT r1OSbgeFE+RGXtWSQ4hFjz ZXwdYSTmyT4cOREbK4x3Nq EfTrI0YHqi W4KvQRIfnyjfOb05hK8pCm JgDzK7KSlwZ9UxqiS5SIAc sIDmADodUQV1R68kg0Z0GE MwMDAwMDA7 lMS4jJ3egAdiazvlkAOgxV wzckUmyWqnZVazJXryN787 GFYtfXseBpI9OMiuEYUcFM 64SC84kSZf n7R7qGB6Y4MzNPWnyxxkzl auoNZ5HTLfTWQdcP07fQKw TJioEo6pv2G6p649VBTtGX GduO68Pl2b uDydACCqgZSVwL7wevlkv1 zsfpzoQoUpNYOdAHm7IQg1 AGCkrTtrCyWoWWV6ZvM4IL O9aZPrsB5k tLsiaauhhU4sKpn+RmVtYW axNL86TY60xBPod1Y6xAS4 J1LoDWRrvpwlyyrqrET9EH XjSVUgqI15 pURmPBteEf3re6M9m148GR VqZINlrK99Eo2gdIerRSJx oIKOcL3kuhuvl4nuiqnxQu AwMDAwMDt0 JZx1QUGprZgsJcKvQJN6Ki U5JCC0hDLylB2kjEsejlyv jA4uYpf+Y1U7gBB5pCEryY wvdGQ+PC90 mx89Y4GsOwdmVpk7HSPoME Y1zGS9eG5pJSNvAJdiz8N2 iAB3B8OfvqFujd4jm1thZS IoWHquX45a tBKae9P0VVYykHT3CZDljQ gsOsIivN54Jty+PGNvbGdy q0ZzGoxlu8lkc4aebAx7Ea MwJSIgdmFs wUvqLRZ5o5OpCh48K08lAE dpZHRoPSIzMCUiIHZhbGln lm4slU0vFg4+GHGhzZH9vF J1mT0xYwQs KxZ8ZFuuP984LbMilVTnWv tve0oqa5rbaMv8VnFtSDMw ndXrhXaxEGX5d6ZpIb15Y6 UdgFodm7Ah Mme4ii13aRUkw4J4xOQ6O9 KcZDMnlkbvyXHbxUesAB6d PVKtiwahJJGwaS1aHOLfZ0 w6DgVlGtE2 NUioO0UdeqY1TERspERjTK WdsYMDwI5fxklbt3aevhyq WnSeIPYnKSr1WYo6HVAdlJ duOiBsZWZ0 XwH2JJS5gCXahG5kfYjzus rucK3jMjx+UUa8b0rlaFLu EN0rdRG6FP06YE85tKTnh3 I8lPL3J9Wg ISHzmqjvekxnuYS5SXIjPI OyyF47Rd8ucTubMz1zZGZd RBU9OZEshFBhJ7LdeL9yZz AjMDAwMDAw T0IoaHLyQIflS995XVpeRg T1JTYkhtFnO5FpOAQykWpz HrW3h4A0Px0SMK72XM07TX 80iNLop1O6 vAV7Z0WjQSVyrwzumwrrnQ C1ADHhELEnfH68Ro7pdZdq Ot3gRZGcIBA8SVLydWIxD0 AlvT3pNfCg HQHaPFWwQ0WmoHJxZObwS4 48AVkkUiK3AYClihYxN2Mw CPGviZpuNlU8b6I2Hr5GIl 67UR94QK48 lYVpe8P2fUA9S4EdQDXdaj kjgezrsPB9ZANtWHSmtP90 Zr4qgUwjOc2tRJJcJNU4EF NieUAwJ0Ah vO0hMeMdAHFtFKMqD3OcgX FqLEdzH882AQxgKvB1ZDHq ziIyW4AlNQIivDumSpE9s6 Q5Rj1KLHuo vjh1F2MeFipyfJG+PC90YW SmYI30kKZcuHVwa9gzwOy4 WjUqCRKiNGG3fMkcHTkgb4 LxCBGwI90j bGFw (more content not included)... Normal [facility] Immunization Recordson 08-10 Immunization Records [id number]#1. 00CD:127 [facility] C Urineon 08-08-2022 Bacteria identified Cx Nom [...] Locations R1: This test was performed at: [facility], [address] [place] [address], [address] , [place], Normal [facility] Comment on above: Performed By: #### 2 184056, 9149940, 89740656, 0197746, 6044794, 7858590 #### [facility] [address] [place] [address] 64063 ABO/Rh Retypeon 08-06-2022 ABO/Rh Retype Interp Positive Invalid Interpretation Code [facility] Comment on above: Performed By: #### 2 074994, 3335948, 65351115, 6158140, 3989550, 8186640 #### [facility] [address] [place] [address] 28451 BUNon 08-06-2022 Urea nitrogen [Mass/Vol] 15 mg/dL Normal 5-21 [facility] Comment on above: Performed By: #### 2 043961, 0494446, 33659495, 2525630, 0655956, 9402257 #### [facility] [address] [place] [address] 67846 CBC w/Indiceson 08-06-2022 Erythrocyte distribution width (RBC) [Ratio] 14.3 % High 10.9-14.2 [facility] Comment on above: Performed By: #### 2 834161, 6123458, 57858968, 4792444, 8721079, 1936630 #### [facility] [address] [place] [address] 85626 Hematocrit (Bld) [Volume fraction] 46.3 % High 34.0-46.0 [facility] Comment on above: Performed By: #### 2 611603, 2771058, 94248029, 9323057, 7042003, 1385914 #### [facility] [address] [place] [address] 38040 Hemoglobin (Bld) [Mass/Vol] 15.8 g/dL Normal 12.0-16.0 [facility] Comment on above: Performed By: #### 2 054349, 5250119, 58658611, 3299385, 3323472, 7752546 #### [facility] [address] [place] [address] 13780 MCH (RBC) [Entitic mass] 29.5 pg Normal 27.0-34.0 [facility] Comment on above: Performed By: #### 2 876368, 9690582, 97088584, 0497126, 1724593, 2169803 #### [facility] [address] [place] [address] 41074 MCHC (RBC) [Mass/Vol] 34.2 g/dL Normal 31.4-36.0 [facility] Comment on above: Performed By: #### 2 872197, 9193375, 51326361, 7434147, 4534441, 3871686 #### [facility] [address] [place] [address] 38904 MCV (RBC) [Entitic vol] 86.3 fL Normal 80.0-100.0 [facility] Comment on above: Performed By: #### 2 412930, 6364618, 10189243, 5136337, 3073194, 3995955 #### [facility] [address] [place] [address] 52011 Platelet mean volume (Bld) [Entitic vol] 7.8 fL Normal 6.4-10.8 [facility] Comment on above: Performed By: #### 2 976301, 7537569, 63320510, 2992150, 7876378, 0368795 #### [facility] [address] [place] [address] 66815 Platelets (Bld) [#/Vol] 239.0 E9/L Normal 150.0-500.0 [facility] Comment on above: Performed By: #### 2 537244, 7214826, 89184672, 5681680, 5419171, 6660984 #### [facility] [address] [place] [address] 26424 RBC (Bld) [#/Vol] 5.4 E12/L Normal 4.3-5.9 [facility] Comment on above: Performed By: #### 2 311367, 7610281, 97328051, 3482890, 9408837, 3923595 #### [facility] [address] [place] [address] WBC corrected for nucl RBC Auto (Bld) [#/Vol] 6.7 E9/L Normal 4.0-11.0 [facility] Comment on above: Performed By: #### 2 503509, 8370209, 50919124, 6760908, 4407434, 0592847 #### [facility] [address] [place] [address] Consent for Treatmenton Consent for Treatment [id number] 0CD:127 Normal [facility] Creatinineon 08-06-2022 Creatinine [Mass/Vol] 0.7 mg/dL Normal 0.5-1.3 [facility] Comment on above: Performed By: #### 2 103208, 1664329, 12124712, 3954641, 1111007, 8713045 #### [facility] [address] [place] [address] Glucoseon 08-06-2022 Glucose [Mass/Vol] 101 mg/dL Normal 55-199 [facility] Comment on above: Performed By: #### 2 647209, 3179974, 05074947, 5858190, 3822124, 1663217 #### [facility] [address] [place] [address] Lyteson 08-06-2022 Anion gap [Moles/Vol] 13 mmol/L Normal 6-16 [facility] Comment on above: Performed By: #### 2 117412, 8151906, 57884297, 5632987, 2895951, 3867205 #### [facility] [address] [place] [address] Chloride [Moles/Vol] 101 mmol/L Normal 101-111 [facility] Comment on above: Performed By: #### 2 525372, 2861924, 32981532, 1806545, 8376946, 9629238 #### [facility] [address] [place] [address] CO2 [Moles/Vol] 27 mmol/L Normal 21-31 [facility] Comment on above: Performed By: #### 2 102567, 4807573, 96731326, 8580534, 5658945, 7109901 #### [facility] [address] [place] [address] Potassium [Moles/Vol] 4.2 mmol/L Normal 3.5-5.3 [facility] Comment on above: Performed By: #### 2 537158, 7750185, 44492405, 6545396, 6665686, 8740976 #### [facility] [address] [place] [address] Sodium [Moles/Vol] 137 mmol/L Normal 135-145 [facility] Comment on above: Performed By: #### 2 852726, 6611520, 13372365, 4294432, 9434124, 4499494 #### [facility] [address] [place] [address] UA With Cult Reflexon 2021 Bacteria LM Ql (Urine sed) TRACE Normal Trace [facility] Comment on above: Performed By: #### 2 910498, 5676295, 76948225, 8906275, 4637792, 2190644 #### [facility] [address] [place] [address] Bilirubin Ql (U) Negative Normal Negative [facility] Comment on above: Performed By: #### 2 060611, 4688018, 05348411, 5309145, 8182284, 8366883 #### [facility] [address] [place] [address] Clarity (U) CLEAR Normal Clear [facility] Comment on above: Performed By: #### 2 651875, 9981634, 68617386, 8725484, 8107416, 0299764 #### [facility] [address] [place] [address] Color (U) YELLOW Normal Yellow [facility] Comment on above: Performed By: #### 2 856395, 4651562, 01217455, 4419442, 3584165, 3509666 #### [facility] [address] [place] [address] Epithelial cells.squamous LM.HPF (Urine sed) [#/Area] 3-4 Normal 0-2 [facility] Comment on above: Performed By: #### 2 779474, 3024122, 04397152, 2917205, 1756325, 1485605 #### [facility] [address] [place] [address] Glucose Test strip (U) [Mass/Vol] Negative Normal Negative [facility] Comment on above: Performed By: #### 2 296876, 3731954, 35359290, 2167031, 2816401, 7821450 #### [facility] [address] [place] [address] 15388 Hemoglobin Ql (U) Negative Normal Negative [facility] Comment on above: Performed By: #### 2 751538, 1927192, 29714189, 6592334, 1401155, 1746057 #### [facility] [address] [place] [address] 45046 Ketones (U) [Mass/Vol] Negative Normal Negative [facility] Comment on above: Performed By: #### 2 901283, 6745080, 92084940, 6303256, 4079110, 1982335 #### [facility] [address] [place] [address] [place].plasma/Lith ium.RBC (Bld) [Mass ratio] 0-3 Normal 0-3 [facility] Comment on above: Performed By: #### 2 738084, 6766354, 96560710, 5437501, 0334954, 4112778 #### [facility] [address] [place] [address] Mucus Ql (Urine sed) TRACE Normal [facility] Comment on above: Performed By: #### 2 547650, 9116785, 51838485, 0012930, 5173003, 5472539 #### [facility] [address] [place] [address] Nitrite Ql (U) Negative Normal Negative [facility] Comment on above: Performed By: #### 2 057382, 5194541, 94673518, 7956962, 6595207, 0883028 #### [facility] [address] [place] [address] 18686 pH (U) 7.0 [pH] Invalid Interpretation Code 5.0-9.0 [facility] Comment on above: Performed By: #### 2 177460, 4950880, 82407557, 4096726, 6017125, 1773801 #### [facility] [address] [place] [address] 66544 Protein (U) [Mass/Vol] Negative Normal Negative [facility] Comment on above: Performed By: #### 2 132564, 2904562, 55738399, 6809191, 3041155, 0325871 #### [facility] [address] [place] [address] 21184 Specific gravity (U) [Rel density] 1.015 Invalid Interpretation Code 1.005-1.030 [facility] Comment on above: Performed By: #### 2 499081, 6439054, 61735940, 1808158, 8898372, 5872723 #### [facility] [address] [place] [address] 53381 Type of Urine collection method Clean Catch Normal [facility] Comment on above: Performed By: #### 2 714600, 9574222, 41475554, 6280270, 7135448, 1231839 #### [facility] [address] [place] [address] 15065 Urobilinogen Qn (U) 0.2 {Tyson'U}/dL Normal 0.0-1.0 [facility] Comment on above: Performed By: #### 2 086307, 7689341, 76195991, 1207728, 8034223, 5771949 #### [facility] [address] [place] [address] WBC Auto Ql (U) TRACE Abnormal Negative [facility] Comment on above: Performed By: #### 2 062423, 7941180, 03267064, 0961430, 7529471, 7545373 #### [facility] [address] [place] [address] WBC LM.HPF (Urine sed) [#/Area] 6-15 Abnormal 0-5 [facility] Comment on above: Performed By: #### 2 370493, 6334185, 15978768, 4365411, 5499908, 7908419 #### [facility] [address] [place] [address] XR Chest 2 Viewson 2 XR Chest [...] Quiros MD Transcribed by: AUSTIN Technologist: Normal [facility] eGFRon 08-06-2022 GFR/1.73 sq M.predicted among blacks MDRD (S/P/Bld) [Vol rate/Area] mL/min/{1.73_m2} Normal >=59 [facility] Comment on above: Order Comment: Order added by Discern Expert. Result Comment: eGFR is race adjusted. AA=. Performed By: #### 2 386110, 6551763, 94688373, 0402287, 6242949, 2635041 #### [facility] [address] [place] [address] GFR/1.73 sq M.predicted among non-blacks MDRD (S/P/Bld) [Vol rate/Area] mL/min/{1.73_m2} Normal >=59 [facility] Comment on above: Order Comment: Order added by Discern Expert. Result Comment: Cadastral Engineer taylor kidney disease could be indicated at eGFR's of less than 60 mL/min/1.73m2. Kidney failure is indicated at less than 15 mL/min/1.73m2. Performed By: #### 2 706186, 6868493, 35366751, 2994491, 2350091, 8907468 #### [facility] [address] [place] [address] Physician Orderon 07-12-2022 Physician Order [id number]#1. 00CD:127 Normal [facility] CBC AUTO DIFFon 05-20-2022 BASO # 0.1 103/ul Normal 0.0-0.1 [facility] Comment on above: Performed By: #### C BC #### [facility] [address] [place] [address] Dr. Carmen Brown Basophils/100 WBC (Bld) 1.2 % Normal 0.2-2.0 [facility] Comment on above: Performed By: #### C BC #### [facility] [address] [place] [address] Dr. Carmen Brown EO # 0.2 103/ul Normal 0.0-0.7 [facility] Comment on above: Performed By: #### C BC #### [facility] [address] [place] [address] Dr. Carmen Brown Eosinophils/100 WBC (Bld) 3.9 % Normal 0.9-7.0 [facility] Comment on above: Performed By: #### C BC #### [facility] [address] [place] [address] Dr. Carmen Brown Erythrocyte distribution width (RBC) [Ratio] 13.2 % Normal 11.0-15.0 [facility] Comment on above: Performed By: #### C BC #### [facility] [address] [place] [address] Dr. Carmen Brown Hematocrit (Bld) [Volume fraction] 49.3 % Critically high 36.0-48.0 [facility] Comment on above: Performed By: #### C BC #### [facility] [address] [place] [address] Dr. Carmen Brown Hemoglobin (Bld) [Mass/Vol] 16.0 g/dL Normal 12.0-16.0 [facility] Comment on above: Performed By: #### C BC #### [facility] [address] [place] [address] Dr. Carmen Brown IG # 0.02 10e3/ul Normal 0.00-0.03 [facility] Comment on above: Performed By: #### C BC #### [facility] [address] [place] [address] Dr. Carmen Brown IG % 0.4 % Normal 0.0-0.5 [facility] Comment on above: Performed By: #### C BC #### [facility] [address] [place] [address] Dr. Carmen Brown LYMPH # 1.3 103/ul Normal 1.2-3.8 [facility] Comment on above: Performed By: #### C BC #### [facility] [address] [place] [address] Dr. Carmen Brown Lymphocytes/100 WBC (Bld) 24.6 % Normal 20.5-60.0 [facility] Comment on above: Performed By: #### C BC #### [facility] [address] [place] [address] Dr. Carmen Brown MANUAL DIFF REQ NO Normal [facility] Comment on above: Performed By: #### C BC #### [facility] [address] [place] [address] Dr. Carmen Brown MCH (RBC) [Entitic mass] 29.1 pg Normal 26.7-34.0 [facility] Comment on above: Performed By: #### C BC #### [facility] [address] [place] [address] Dr. Carmen Brown MCHC (RBC) [Mass/Vol] 32.5 g/dL Normal 29.9-35.2 [facility] Comment on above: Performed By: #### C BC #### [facility] [address] [place] [address] Dr. Carmen Brown MCV (RBC) [Entitic vol] 89.8 fL Normal 81.0-99.0 [facility] Comment on above: Performed By: #### C BC #### [facility] [address] [place] [address] Dr. Carmen Brown MONO # 0.4 103/ul Normal 0.3-0.8 [facility] Comment on above: Performed By: #### C BC #### [facility] [address] [place] [address] Dr. Carmen Brown Monocytes/100 WBC (Bld) 7.7 % Normal 1.7-12.0 [facility] Comment on above: Performed By: #### C BC #### [facility] [address] [place] [address] Dr. Carmen Brown NEUT # 3.2 103/ul Normal 1.4-6.5 [facility] Comment on above: Performed By: #### C BC #### [facility] [address] [place] [address] Dr. Carmen Brown Neutrophils/100 WBC (Bld) 62.2 % Normal 43.0-75.0 [facility] Comment on above: Performed By: #### C BC #### [facility] [address] [place] [address] Dr. Carmen Brown Platelet mean volume (Bld) [Entitic vol] 9.5 fL Normal 9.5-13.5 [facility] Comment on above: Performed By: #### C BC #### [facility] [address] [place] [address] Dr. Carmen Brown PLT 256 103/ul Normal 150-450 [facility] Comment on above: Performed By: #### C BC #### [facility] [address] [place] [address] Dr. Carmen Brown RBC 5.49 106/ul Critically high 4.20-5.40 [facility] Comment on above: Performed By: #### C BC #### [facility] [address] [place] [address] Dr. Carmen Brown WBC 5.1 103/ul Normal 4.0-11.0 [facility] Comment on above: Performed By: #### C BC #### [facility] [address] [place] [address] Dr. Carmen Brown FREE T4on 05-20-2022 Free T4 [Mass/Vol] 1.43 ng/dL Normal 0.76-1.46 [facility] Comment on above: Performed By: #### F T4 #### [facility] [address] [place] [address] Dr. Carmen Brown GLYCOHEMOGLOBIN A1Con 2021 ADA RECOMMENDATION SEE BELOW Normal [facility] Comment on above: Result Comment: ADA RECOMMENDED LIMIT 4.0 - 6.0 ADA THERAPEUTIC TARGET < 7.0 ACTION SUGGESTED > 7.0 Performed By: #### A 1C #### [facility] [address] [place] [address] Dr. Carmen Brown Glucose [Mass/Vol] 128 mg/dL Normal [facility] Comment on above: Performed By: #### A 1C #### [facility] [address] [place] [address] Dr. Carmen Brown HbA1c (Bld) [Mass fraction] 6.1 % Normal 4.5-6.2 [facility] Comment on above: Performed By: #### A 1C #### [facility] [address] [place] [address] Dr. Carmen Brown PROF CHEM 8 (BAS METB)on Anion gap [Moles/Vol] 11.9 mmol/L Normal [facility] Comment on above: Performed By: #### T SH, BMP #### [facility] [address] [address] [address] Carmen Brown Calcium [Mass/Vol] 9.5 mg/dL Normal 8.5-10.1 [facility] Comment on above: Performed By: #### T SH, BMP #### [facility] [address] [address] [address] Carmen Brown Chloride [Moles/Vol] 105 mmol/L Normal 98-107 [facility] Comment on above: Performed By: #### T SH, BMP #### [facility] [address] [address] [address] Carmen Brown CO2 [Moles/Vol] 28.5 mmol/L Normal 21.0-32.0 [facility] Comment on above: Performed By: #### T JUAN, BMP #### [facility] [address] [place] [address] Dr. Carmen Brown Creatinine [Mass/Vol] 0.78 mg/dL Normal 0.55-1.02 [facility] Comment on above: Performed By: #### T SH, BMP #### [facility] [address] [address] [address] Carmen Brown EGFR-AF FIJIAN >60 Normal >=60 [facility] Comment on above: Performed By: #### T SH, BMP #### [facility] [address] [place] [address] Dr. Carmen Brown EGFR-NON AF FIJIAN >60 Normal >=60 [facility] Comment on above: Performed By: #### T JUAN, BMP #### [facility] [address] [place] [address] Dr. Carmen Brown Glucose [Mass/Vol] 127 mg/dL Critically high 74-106 [facility] Comment on above: Performed By: #### T SH, BMP #### [facility] [address] [place] [address] Dr. Carmen Brown Potassium [Moles/Vol] 4.4 mmol/L Normal 3.5-5.1 [facility] Comment on above: Performed By: #### T SH, BMP #### [facility] [address] [address] [address] Carmen Brown Sodium [Moles/Vol] 141 mmol/L Normal 136-145 [facility] Comment on above: Performed By: #### T SH, BMP #### [facility] [address] [address] [address] Carmen Brown Urea nitrogen [Mass/Vol] 10.0 mg/dL Normal 7.0-18.0 [facility] Comment on above: Performed By: #### T SH, BMP #### [facility] [address] [place] [address] Dr. Carmen Brown Urea nitrogen/Creatinine [Mass ratio] 12.8 mg/mg Normal [facility] Comment on above: Performed By: #### T JUAN, BMP #### [facility] [address] [place] [address] Dr. Carmen Brown TSHon 05-20-2022 TSH 1.276 uIU/mL Normal 0.358-3.740 [facility] Comment on above: Performed By: #### T JUAN, BMP #### [facility] [address] [place] [address] Dr. Carmen Brown Vital Signs Date Time Vital Sign Value Performing Clinician Facility 06-05-2024 11:[id number] Body height 160.02 cm [facility] 06-05-2024 11:43-0400 Body mass index (BMI) [Ratio] 40.1 kg/m2 [facility] 06-05-2024 [id number] Body weight 102.62 kg [facility] 06-05-2024 11:43-0400 Diastolic blood pressure 88 mm[Hg] [facility] 06-05-2024 11:43-0400 Heart rate 76 /min [facility] 06-05-2024 11:43-0400 Respiratory rate 18 /min [facility] 06-05-2024 11:43-0400 SaO2% (BldA) [Mass fraction] 97 % [facility] 06-05-2024 11:43-0400 Systolic blood pressure 134 mm[Hg] [facility] 05-22-2024 09:21-0400 Body height 160.02 cm [facility] 05-22-2024 09:21-0400 Body mass index (BMI) [Ratio] 40.4 kg/m2 [facility] 05-22-2024 09:21-0400 Body weight 103.41 kg [facility] 05-22-2024 09:21-0400 Diastolic blood pressure 87 mm[Hg] [facility] 05-22-2024 09:21-0400 Heart rate 74 /min [facility] 05-22-2024 09:21-0400 Systolic blood pressure 152 mm[Hg] [facility] [facility] 14:30-0400 Body height 160.02 cm [facility] 2024 14:30-0400 Body mass index (BMI) [Ratio] 40.7 kg/m2 [facility] 2024 14:30-0400 Body weight 104.32 kg [facility] 2024 14:30-0400 Diastolic blood pressure 77 mm[Hg] [facility] 2024 14:30-0400 Heart rate 75 /min [facility] 2024 14:30-0400 Systolic blood pressure 122 mm[Hg] [facility] 05-20-2023 14:30-0400 Body height 160.02 cm Camille Williamson Other [facility] Other 05-20-2023 14:30-0400 Body mass index (BMI) [Ratio] 40.38 kg/m2 Camille Williamson Other [facility] Other 05-20-2023 14:30-0400 Body weight 103.42 kg Camille Williamson Other [facility] Other 05-20-2023 14:30-0400 Diastolic blood pressure 81 mm[Hg] Camille Williamson Other [facility] Other 05-20-2023 14:30-0400 Systolic blood pressure 140 mm[Hg] Camille Williamson Other [facility] Other 04-28-2023 13:30-0400 Body height 160.02 cm Camille Williamson Other [facility] Other 04-28-2023 13:30-0400 Body mass index (BMI) [Ratio] 39.14 kg/m2 Camille Williamson Other [facility] Other 04-28-2023 13:30-0400 Body weight 100.25 kg Camille Williamson Other [facility] Other 04-28-2023 13:30-0400 Diastolic blood pressure 82 mm[Hg] Camille Williamson Other [facility] Other 04-28-2023 13:30-0400 Systolic blood pressure 130 mm[Hg] Camille Williamson Other [facility] Other 02-21-2023 14:30-0400 Body height 160.02 cm Camille Williamson Other [facility] Other 02-21-2023 14:30-0400 Body mass index (BMI) [Ratio] 41.98 kg/m2 Camille Williamson Other [facility] Other 02-21-2023 14:30-0400 Body weight 107.5 kg Camille Williamson Other [facility] Other 02-21-2023 14:30-0400 Diastolic blood pressure 82 mm[Hg] Camille Williamson Other [facility] Other 02-21-2023 14:30-0400 Systolic blood pressure 136 mm[Hg] Camille Williamson Other [facility] Other 09-16-2022 15:15-0500 Body height 160.02 cm Camille Williamson Other [place] [employer] Other 09-16-2022 15:15-0500 Body mass index (BMI) [Ratio] 41.62 kg/m2 Camille Williamson Other [facility] [employer] Other 09-16-2022 15:15-0500 Body weight 106.6 kg Camille Williamson Other [facility] [employer] Other 09-16-2022 15:15-0500 Diastolic blood pressure 86 mm[Hg] Camille Williamson Other [facility] [employer] Other 09-16-2022 15:15-0500 SaO2% (BldA) [Mass fraction] 97 % Camille Williamson Other [facility] Other 09-16-2022 15:15-0500 Systolic blood pressure 132 mm[Hg] Camille Williamson Other [facility] Other 08-31-2022 15:54-0500 SaO2% (BldA) [Mass fraction] 98 % [facility] [employer] [facility] 08-31-2022 12:00-0500 Heart rate 66 /min [employer] [facility] 08-31-2022 12:00-0500 SaO2% (BldA) [Mass fraction] 98 % [employer] [facility] 08-31-2022 12:00-0500 Body temperature 97.16 [degF] [employer] [facility] 08-31-2022 12:00-0500 Diastolic blood pressure 78 mm[Hg] [employer] [facility] 08-31-2022 12:00-0500 Mean blood pressure 96 mm[Hg] Gwyn Garcia [facility] 08-31-2022 12:00-0500 Systolic blood pressure 133 mm[Hg] Gwyn Cam [facility] 08-31-2022 08:28-0500 Blood Pressure Location Gwyn Garcia [facility] 08-31-2022 08:28-0500 Body temperature 98.42 [degF] Gwyn Garcia [facility] 08-31-2022 08:28-0500 Diastolic blood pressure 55 mm[Hg] Gwyn Cam [facility] 08-31-2022 08:28-0500 Heart rate 61 /min Gwyn Garcia [facility] 08-31-2022 08:28-0500 Hourly Rounding Gwyn Cam [facility] 08-31-2022 08:28-0500 Mean blood pressure 64 mm[Hg] Gwyn Cam [facility] 08-31-2022 08:28-0500 Respiratory rate 18 /min Gwyn Garcia [facility] 08-31-2022 08:28-0500 SaO2% (BldA) [Mass fraction] 98 % Gwyn Cam [facility] 08-31-2022 08:28-0500 Systolic blood pressure 81 mm[Hg] Gwyn Cam [facility] 08-31-2022 06:14-0500 Hourly Rounding Gwyn Cam [facility] 08-31-2022 06:14-0500 Promise to Return Gwyn Cam [facility] 08-31-2022 05:18-0500 Hourly Rounding Gwyn Cam [facility] 08-31-2022 05:18-0500 Promise to Return Gwyn Garcia [facility] 08-31-2022 04:01-0500 Blood Pressure Location Gwyn Garcia [facility] 08-31-2022 04:01-0500 Body temperature 98.24 [degF] Gwyn Cam [facility] 08-31-2022 04:01-0500 Diastolic blood pressure 81 mm[Hg] Gwyn Cam [facility] 08-31-2022 04:01-0500 Heart rate 71 /min Gwyn Cam [facility] 08-31-2022 04:01-0500 Mean blood pressure 96 mm[Hg] Gwyn Cam [facility] 08-31-2022 04:01-0500 Mean blood pressure 103 mm[Hg] Gwyn Cam [facility] 08-31-2022 04:01-0500 Respiratory rate 17 /min Gwyn Cam [facility] 08-31-2022 04:01-0500 Systolic blood pressure 147 mm[Hg] Gwyn Cam [facility] 08-31-2022 04:00-0500 Promise to Return Gwyn Cam [facility] 08-31-2022 00:24-0500 Blood Pressure Location Gwyn Cam [facility] 08-31-2022 00:24-0500 Body temperature 98.06 [degF] Gwyn Garcia [facility] 08-31-2022 00:24-0500 Mean blood pressure 96 mm[Hg] Gwyn Garcia [facility] 08-31-2022 00:24-0500 Mean blood pressure 105 mm[Hg] Gwyn Garcia [facility] 08-31-2022 00:24-0500 Respiratory rate 15 /min Gwyn Garcia [facility] 08-30-2022 20:04-0500 Body temperature 97.7 [degF] Gwyn Garcia [facility] 08-30-2022 14:25-0500 Body temperature 96.98 [degF] Gwyn Garcia [facility] 08-30-2022 14:25-0500 Respiratory rate 16 /min Gwyn Garcia [facility] 08-30-2022 14:15-0500 Respiratory rate 19 /min Gwyn Garcia [facility] 08-30-2022 14:00-0500 Respiratory rate 18 /min Gwyn Garcia [facility] 08-30-2022 13:46-0500 Body temperature 96.98 [degF] Gwyn Garcia [facility] 08-30-2022 10:01-0500 Heart rate 60 /min Gwyn Garcia [facility] 08-30-2022 09:59-0500 Body temperature 97.88 [degF] Gwyn Garcia [facility] Encounters Encounter Date Encounter Type Care Provider Facility Start: 06-05-2024 End: 06-05-2024 ambulatory [facility] Work Phone: Start: 06-05-2024 End: 06-05-2024 Patient encounter procedure [facility] Work Phone: Start: 05-31-2024 End: 05-31-2024 ambulatory ROBERTO AGUAYO [facility] Comment on above: Weakness of both low er extremities (Primary Dx) Start: 05-31-2024 End: 05-31-2024 Bamboo flowsheet Roberto Aguayo [facility] Start: 05-31-2024 End: 05-31-2024 Bamboo flowsheet Roberto Aguayo [facility] [facility] Start: 05-29-2024 End: 05-30-2024 ambulatory Roberto Aguayo [facility] [facility] Comment on above: Weakness [...] Not Available Start: 05-22-2024 End: 05-22-2024 ambulatory [facility] Work Phone: Start: 05-22-2024 End: 05-22-2024 Patient encounter procedure [facility] Work Phone: Start: 05-19-2024 Non-patient / Non-visit [facility] Work Phone: Start: 05-17-2024 End: 05-17-2024 ambulatory ROBERTO AGUAYO Not Available Start: 05-16-2024 Patient encounter status [facility] Start: 05-15-2024 End: 05-15-2024 ambulatory ROBERTO AGUAYO [...] Not Available Start: 2024 End: 2024 ambulatory [facility] Work Phone: Start: 2024 End: 2024 Patient encounter procedure [facility] Work Phone: Start: 01-10-2024 Non-patient / Non-visit [facility] Work Phone: Start: 01-03-2024 End: 01-03-2024 ambulatory PRINCESS LADONNA Not Available Start: 12-19-2023 Non-patient / Non-visit [facility] Work Phone: Start: 12-07-2023 End: 12-07-2023 ambulatory GWYN GARCIA Not Available Start: 09-24-2023 End: 09-24-2023 ambulatory Camille Williamson Other [facility] Other Start: 09-24-2023 Telephone encounter Camille Williamson [facility] Start: 06-16-2023 End: 06-16-2023 ambulatory Camille Williamson Other [facility] Other Start: 06-16-2023 Telephone encounter Camille Williamson [facility] Start: 05-20-2023 End: 05-20-2023 ambulatory Camille Williamson Other [facility] Other Start: 05-20-2023 Office outpatient vi sit 15 minutes Camille Williamson [facility] Start: 04-29-2023 End: 04-29-2023 ambulatory Camille Williamson Other [facility] Other Start: 04-29-2023 Telephone encounter Camille Williamson [facility] Start: 04-28-2023 End: 04-28-2023 ambulatory Camille Williamson Other [facility] Other Start: 04-28-2023 Office outpatient vi sit 15 minutes Camille Williamson [facility] Start: 04-25-2023 End: 04-25-2023 ambulatory Camille Williamson Other [facility] Other Start: 04-25-2023 Telephone encounter Camille Williamson [facility] Start: 02-21-2023 End: 02-21-2023 ambulatory Camille Williamson Other [facility] Other Start: 02-21-2023 Office outpatient vi sit 15 minutes Camille Williamson [facility] Start: 12-13-2022 End: 12-14-2022 Evaluation and management of inpatient Gwyn Garcia Facility:[facility] [place] Start: 10-14-2022 End: 10-14-2022 ambulatory Camille Williamson Other [facility] Other Start: 10-14-2022 Telephone encounter Camille Clay [facility] Start: 09-16-2022 End: 09-16-2022 ambulatory Camille Clay Other [facility] Other Start: 09-16-2022 Office outpatient vi sit 15 minutes Camille Williamson [facility] Start: 09-01-2022 End: 09-01-2022 ambulatory Camille Williamson Other [facility] Other Start: 09-01-2022 Telephone encounter Camille Williamson [facility] Start: 08-31-2022 End: 08-31-2022 ambulatory Camille Williamson Other [facility] Other Start: 08-31-2022 Telephone encounter Camille Williamson [facility] Start: 08-30-2022 End: 08-31-2022 Evaluation and management of inpatient Gwyn Garcia Facility:[facility] [place] [facility] Start: 08-30-2022 End: 08-31-2022 Evaluation and management of inpatient Gwyn Garcia [facility] Start: 08-06-2022 End: 08-07-2022 ambulatory Gwyn Spencer Cam Facility:[facility] [place] [facility] Start: 05-20-2022 End: 05-21-[address] CAMILLE [...] [facility] [address] [facility] [address] [place] [address] Gwyn Garcia, DO [address] [facility] [place] [address] [facility] Start: 11-06-2024 End: 11-06-2024 Patient encounter procedure 11/06/2024 3:45 PM EDT Office Visit [facility] [address] [place] [id number] Princess Dougherty, DO [address] [place] [address] [facility] [address] Start: 05-31-2024 End: 05-31-2024 ambulatory [facility] Comment on above: Arrived Start: 05-29-2024 End: 05-29-2024 ambulatory 05/29/2024 2:30 PM EDT Treatment [facility] [address] [place] [id number] Ilene Cha, PT Arrived [facility] Comment on above: Arrived Start: 2019 Pneumococcal Vaccine : 65+ Years (2 of 2 - PCV) Pneumococcal Vaccine: 65+ Years (2 of 2 - PCV) [facility] Start: 1994 Screening for malign ant neoplasm of breast Mammogram [facility] Start: 1954 Screening for malign ant neoplasm of colon [facility] MR Unspecified body region [facility] Immunizations Immunization Date Immunization Notes Care Provider Fa cility 06-12-2020 influenza virus vaccine, split virus (incl. purified surface antigen) Camille Williamson Other [facility] Other 06-12-2020 influenza virus vaccine, unspecified formulation [facility] 06-30-2008 pneumococcal polysaccharide vaccine, 23 valent Ilene Cha PT [facility] Payers Date Payer Category Payer [employer] ( and others) [employer] [id number] 2024-Present [address] [place] [address] [id number] 2024 [employer] ( and others) [id number] 2022 Medicare [id number] 2019 Medicare MEDICARE MEDICAR E PART B [id number] 2019-[place] [address] Medicare [id number] 2016 Unknown BCBS BCBS [id number] 2016-Present [phone] [address] [place] [address] [id number] 1959 Medicare [id number] 1959 Unknown [id number] 1954 Unknown [id number] 2.16.840.1.404026.3.579.2. 593 1954 Unknown [id number] 2.16.840.1.477652.3.579.2. 727 1954 Unknown [id number] 2.16.840.1.802209.3.579.2. 727 1954 Unknown [id number] 2.16.840.1.629190.3.579.2. 727 1954 Unknown [id number] 2.16.840.1.055474.3.579.2. 1259 1954 Unknown [id number] 2.16.840.1.181615.3.579.2. 1259 1954 Unknown [id number] 2.16.840.1.563503.3.579.2. 1259 1954 Unknown [id number] 2.16.840.1.081429.3.579.2. 1259 1954 Unknown [id number] 2.16.840.1.448569.3.579.2. 1259 1954 Unknown [id number] 2.16.840.1.703341.3.579.2. 1259 1954 Unknown [id number] 2.16.840.1.907239.3.579.2. 1259 1954 Unknown [id number] 2.16.840.1.150298.3.579.2. 1259 1954 Unknown [id number] 2.16.840.1.546635.3.579.2. 9 1954 Unknown [id number] 2.16.840.1.873063.3.579.2. 1258 1954 Unknown [id number] 2.16.840.1.063525.3.579.2. 1258 1954 Unknown [id number] 2.16.840.1.712550.3.579.2. 1258 1954 Unknown [id number] 2.16.840.1.046165.3.579.2. 1258 1954 Unknown [id number] 2.16.840.1.097461.3.579.2. 1258 1954 Unknown [id number] 2.16.840.1.712941.3.579.2. 1258 1954 Unknown [id number] 2.16.840.1.828429.3.579.2. 1258 1954 Unknown [id number] 2.16.840.1.977043.3.579.2. 1258 1954 Unknown [id number] 2.16.840.1.887216.3.579.2. 1258 1954 Unknown [id number] 2.16.840.1.360734.3.579.2. 1258 1954 Unknown [id number] 2.16840.1.278598.3.579.2. 1258 1954 Unknown [id number] 2.16.840.1.478472.3.579.2. 1258 1954 Unknown [id number] 2.16840.1.547410.3.579.2. 1258 1954 Unknown [id number] 2.16840.1.185085.3.579.2. 1259 Social History Date Type Detail Facility [facility] Start: 05-23-2024 Sex Assigned At Female F [facility] Start: 04-20-2023 End: 2024 Tobacco smoking status NHIS Never smoked tobacco (finding) [facility] Start: 1955 Sex Assigned At Female F [facility] Start: 04-20-2023 Tobacco use and exposure Smokeless tobacco non-user [facility] Start: 05-23-2024 Alcoholic beverage intake Lifetime non-drinker (finding) [facility] Start: 05-23-2024 History of Social function [facility] Start: 05-02-2023 Alcohol Comment caffeine intak e: 1-2 cups per day [facility] Start: 1955 Sex assigned at Not on file N [facility] Medical Equipment Procedure Code Equipment Code Equipment Origin al Text Equipment Identifier Dates KNEE TOTAL ARTHROPLASTY Gwyn Garcia DO 08/30/22 Non Biological Knee R {[id number] FDA Start: 08-30-2022 Clinical Notes 08-25-2022 to 05-20-2023 Note Date & Type Note Facility 05-20-2023 Evaluation note Encounter Date Diagnosis Assessment Notes Apr, Hypercalcemia (ICD-10 - E83.52) Added PTH and faxed to [facility] lab - add onto lab drawn Apr, Hypothyroidism (acquired) (ICD-10 - E03.9) Apr, Essential hypertension (ICD-10 - I10) Apr, Other Other labs reviewed w pt - gave copies to pt and explained overall normal results. Continue present medications. [facility] Other 08-31-2023 Evaluation note* Encounter Date Diagnosis [...] continue to monitor through routine blood work [facility] Other 06-26-2023 Evaluation note* Encounter Date Diagnosis Assessment Notes Treatment Notes Treatment Clinical Notes Jan, Bilateral hearing loss, unspecified hearing loss type (ICD-10 - H91.93) Jan, Middle ear effusion, bilateral (ICD-10 - H65.93) [facility] Other 04-18-2023 NoteCRM entered the room to discuss dc planning. PCP, DME and insurance discussed. Patient is alert andinvolved in plan of care. Contact information provided and whiteboard updated. Pt will dc with [facility], she has a FWW from home. No further needs. ANt dc today.[facility]Result Comment: Electronically Signed By: Cheri Doan.param\Date and Time Signed: 12/14/22 09:50 [id number] NotePatient: CECI [place]ARS Age: 67 years Sex: [...] Stable course. D/C home with [facility]. [place] out POD#21. F/U in 4 weeks. [facility]:Result Comment: Electronically Signed By: Gwyn Garcia DO\.br\Date and Time Signed: 12/14/22 06:59 EDT 12-13-2022 NotePT Evaluation completed with an [facility] score 14/24. Pt currently requires Mod A x 2 for bed mobilityand Mod A x 2 to stand. Pt was able to take a couple steps to complete a transfer. Will follow daily to progress with recommendations to be given on POD # 1Fyamini [facility]04-10-2023 Note [id number]:127Kenneth [facility] 10-14-2022 Evaluation note* Encounter Date Diagnosis Assessment Notes Treatment Notes Treatment Clinical Notes Sep, Depression with anxiety (ICD-10 - F41.8) [facility] Other 01-19-2023 Evaluation note* Encounter Date Diagnosis Assessment Notes Treatment Notes Treatment Clinical Notes Aug, Depression with anxiety (ICD-10 - F41.8) Aug, Essential hypertension (ICD-10 - I10) continue metoprolol at this time Aug, BMI 40.0-44.9, adult (ICD-10 - Z68.41) Encouraged patient to continue to watch their diet and increase exercise regimen. [facility] Other 01-03-2023 Evaluation + Plan noteExtracted from: [...] course. reg diet. Mepilex chnage 10 days. [place] out POD#14. F/U in 4 weeks. Extracted [...] Recovery Room in stable and satisfactory condition.. [facility]01-03-2023 NotePatient: CECI SPEARS Age: 67 years [...] days. Poly out POD#14. F/U in 4 weeks.[facility] above:Result Comment: Electronically Signed By: [...] standing. 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 It is therefore advised not to drive until after yourfirst office visit following surgery FOLLOW-UP OFFICE VISIT: Gwyn Garcia, DO [facility] [address] [place], [place] [address] Reviewed: 4-08 Follow Up Care 07/12/2022 08:53:18 With:Gwyn Garcia Address: [address] [place] [address]- Business (1) When:09/29/2022 09:30:00 Comments:Keep scheduled appointment With:CAMILLE WILLIAMSON Address: [address] [place] [address]- Business (1) When:09/03/2022 09:00:00 [facility]12-28-2022 Note [id number]:127[facility] Evaluation noteNo InformationNoEncompass Health [facility] [employer] Other Evaluation noteNo assessment information available [facility] Work Phone: Evaluation note* Diagnosis Onset Date Resolution Status Elevated glucose acute Essential hypertension acute Hypothyroidism (acquired) ac lynnette [facility] Work Phone: Evaluation note* Diagnosis Weakness of both lower extremities- Primary [facility] Diagnosis Weakness of both lower extremities- Primary [facility] this encounter [facility] Diagnosis Onset Date Resolution Status Elevated glucose acute Essential hypertension acute Hypothyroidism (acquired) ac lynnette Impairment of balance acute [facility] Work Phone: Hismpwb general Narrative - Reported* Type Description Date [...] TRK 08/29/2022 Hospitalization History SEE SURGICAL HX [facility] [employer] Other Hisyzzh general Narrative - Reported* Type Description Date [...] TLK 11/2022 Hospitalization History SEE SURGICAL HX [facility] Other Hospital course Narrative No data available for this section [facility] No data available for this section [facility] Summary Purpose Family History Relationship Condition [...] unspecified hearing loss type (H91.93) Referral Organization [facility] Referring Provider First Name Camille Referring Provider Last Name Clay Referring Provider Specialty [facility] Referred Organization [facility] Referred Provider Heath Monroy Referred Address ,[place], [place],[address] Referred Provider Specialty Otolaryngolo gy Referral Priority Routine Chief Complaint and Reason for Visit Chief Complaint Amb Documentation Ear complaints Reason for Visit Elevated glucose Essential hypertension Hypothyroidism (acquired) Chief Complaint Trouble Walking Reason for Visit Elevated glucose Essential hypertension Hypothyroidism (acquired) Impairment of balance Additional Source Comments INFORMATION SOURCE (unrecogn ized section and content) DATE CREATED AUTHOR 05/30/[address] [facility] DATE CREATED AUTHOR AUTHOR'S ORGANIZ ATION 12/20/2022 [facility] DATE CREATED AUTHOR AUTHOR'S ORGANIZ ATION 06/02/2024 [facility] dical Specialists EPIC Patient Care team informatio [...] May 22, 2024 End: May 22, 2024 Bacteriologist Dairy Relationship Specialty Start Date End Date Camille Williamson MD [address] [place] [facility] [place] [id number] PCP - General Family Medicine 03/10/23 Bacteriologist Dairy Relationship Specialty Start Date End Date Camille Williamson MD [address] [place] [facility] [place] [address] PCP - General Family Medicine 03/10/23 Bacteriologist Dairy Relationship Specialty Start Date End Date Camille Williamson MD [address] [place] [facility] [place] [address] PCP - General Family Medicine 03/10/23 Bacteriologist Dairy Relationship Specialty Start Date End Date Camille Williamson MD [address] [place] [facility] [place] [address] PCP - General Family Medicine 03/10/23 Team Status: Inactive Member Role Status Dates Camille Williamson MD Primary Care Provide r, Attending Provider Active Start: June 05, 2024 End: June 05, 2024 REASON FOR VISIT (unrecogniz ed section and content) Specialty Diagnoses / Procedures Referred By Contac t Referred To Contact Physical Therapy Diagnoses Weakness of both lower extremities Procedures [place] OFFICE/OUTPATIENT NEW HIGH MDM 60 MINUTES Princess Dougherty DO [address] [place] [address] Cha, Ilene, PT Referral ID Status Reason Start Date Expiration Date Visits Requested Visits Authorized [id number] Authorized Consult and Treat 03/27/2024 09/23/2024 25 [...] BE BASED ON THE PRIMARY CLINICAL RECORDS. [employer] [facility]. provides no warranty or guarantee of the accuracy or completeness of information in this document.
[2024-07-27 10:20] LABS: Basophils Absolute Auto 0.1 10^3/uL (0.0-0.1); Basophils Percent Auto 1.1 % (0.2-2.0); Eosinophils Absolute Auto 0.1 10^3/uL (0.0-0.7); Eosinophils Percent Auto 1.8 % (0.9-7.0); Hematocrit 49.5 % (36.0-48.0); Hemoglobin 16.4 g/dL (12.0-16.0); Immature Granulocytes Abs Auto 0.01 10^3/uL (0.00-0.03); Immature Granulocytes Pct Auto 0.2 % (0.0-0.5); Lymphocytes Absolute Auto 0.8 10^3/uL (1.2-3.8); Lymphocytes Percent Auto 16.7 % (20.5-60.0); Mean Corpuscular HGB Conc 33.1 g/dL (29.9-35.2); Mean Corpuscular Hemoglobin 29.4 pg (26.7-34.0); Mean Corpuscular Volume 88.9 fL (81.0-99.0); Mean Platelet Volume 9.1 fL (9.5-13.5); Monocytes Absolute Auto 0.4 10^3/uL (0.3-0.8); Monocytes Percent Auto 8.7 % (1.7-12.0); Neutrophils Absolute Auto 3.2 10^3/uL (1.4-6.5); Neutrophils Percent Auto 71.5 % (43.0-75.0); Platelet Count 215 10^3/uL (150-450); Red Blood Count 5.57 10^6/uL (4.20-5.40); Red Cell Distribution Width 13.2 % (11.0-15.0); White Blood Count 4.5 10^3/uL (4.0-11.0)
[2024-07-27 11:36] LABS: Estimated Average Glucose 128 mg/dL; Glycohemoglobin A1C 6.1 % (4.5-6.2)
[2024-07-27 11:47] LABS: Free T4 1.32 ng/dL (0.76-1.46)
[2024-07-27 11:50] LABS: Thyroid Stimulating Hormone 0.648 uIU/mL (0.358-3.740)
== END 2024-07-27 09:58 | disposition home or self-care (01) ==
LOC: LAB 09:57
PROVIDERS: PCP Family Medicine; Visit Provider Family Medicine
DX: R73.09 Other abnormal glucose (principal); E03.9 Hypothyroidism, unspecified; I10 Essential (primary) hypertension
CPT/HCPCS: 36415; 83036; 84439; 84443; 85025

== ENCOUNTER 2025-03-13 15:28 | Outpatient (RCR) | payer MEDICARE, BC, OTHER, SELFPAY | END 2025-04-27 07:21 | disposition home or self-care (01) | LOC: PT 15:28 | PROVIDERS: PCP Family Medicine; Visit Provider Family Medicine | DX: R53.1 Weakness (principal) | CPT/HCPCS: 97110; 97112; 97162; 97530 ==

== ENCOUNTER 2025-05-24 08:56 | Outpatient (OUT) | payer MEDICARE, BC, OTHER, SELFPAY ==
--- OUTSIDE RECORDS SUMMARY | 2025-05-24 08:59 | XMS_ITS | CCD ---
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 Name Role Phone CLAY, DR CAMILLE Powell Attending Unavailable WILLIAMSON, DR CAMILLE Powell Consulting Unavailable CLAY, DR CAMILLE Powell Primary Care Unavailable CLAY, DR CAMILLE Powell Admitting Unavailable CAMILLE WILLIAMSON Primary Care Physician [phone] Camille Williamson Gwyn Garcia Attending Unavailable Garcia, Gwyn T Admitting Unavailable Garcia, Gwyn T Referring Unavailable Garcia, Gwyn T Attending Unavailable Garcia, Gwyn T Admitting Unavailable Garcia, Gwyn T Referring Unavailable Garcia, Gwyn T Attending Unavailable Garcia, Gwyn T Admitting Unavailable Garcia, Gwyn T Referring Unavailable Camille Williamson MD Primary Care Provider Camille Williamson MD Primary Care Provider [phone] Camille Williamson MD Primary Care Provider Camille Williamson MD Attending Provider ALMA KAY Attending Unavailable NABILA BAIRD Attending Unavailable HEATH MONROY Attending Unavailable GARCIA, GWYN T Referring Unavailable GARCIA, GWYN T Attending Unavailable CHAILENE Attending Unavailable STEPHANIE, PRINCESS Referring Unavailable ROBERTO AGUAYO Attending Unavailable STEPHANIE, PRINCESS Referring Unavailable ROBERTO AGUAYO Attending Unavailable STEPHANIE, PRINCESS Referring Unavailable CHAILENE Attending Unavailable STEPHANIE, PRINCESS Referring Unavailable ROBERTO AGUAYO Attending Unavailable STEPHANIE, PRINCESS Referring Unavailable ROBERTO AGUAYO Attending Unavailable STEPHANIE, PRINCESS Referring Unavailable CHA, ILENE Attending Unavailable STEPHANIE, PRINCESS Referring Unavailable CHA, ILENE Attending Unavailable STEPHANIE, PRINCESS Referring Unavailable CHA ILENE Attending Unavailable STEPHANIE, PRINCESS Referring Unavailable CHA, ILENE Attending Unavailable STEPHANIE, PRINCESS Referring Unavailable ROBERTO AGUAYO Attending Unavailable STEPHANIE, PRINCESS Referring Unavailable ROBERTO AGUAYO Attending Unavailable STEPHANIE, PRINCESS Referring Unavailable ROBERTO AGUAYO Attending Unavailable STEPHANIE, PRINCESS Referring Unavailable STEPHANIE, PRINCESS Attending Unavailable ROBERTO AGUAYO Attending Unavailable STEPHANIE, PRINCESS Referring Unavailable STEPHANIE, PRINCESS Referring Unavailable ROBERTO AGUAYO Attending Unavailable ROBERTO AGUAYO Attending Unavailable STEPHANIE, PRINCESS Referring Unavailable Camille Williamson MD Primary Care Provider Camille Williamson MD Attending Provider Allergies Allergy Classification Reported Allergen(s) Allergy Type Date of Onset Reaction(s) Facility (1 source) No Known Medication Allergies; Translations: [No Known Medication Allergies] Propensity to adverse reactions (disorder) [facility] Repository Medications Current Medications Medication Drug Class(es) [...] as needed for knee replacement pain, [facility]/pharmacy #[id number], 160, cm, 08/09/22 5:49:00 EST, [...] # 30 tab(s), Refills(s) 0, Pharmacy: [facility]/pharmacy #[id number], 160, cm, 08/09/22 5:49:00 EST, [...] # 20 cap(s), Refills(s) 0, Pharmacy: [facility]/pharmacy #[id number], 160, cm, 08/09/22 5:49:00 EST, Height/Length Dosing, 114.3, kg, 08/09/22 5:49:00 EST, Weight Dosing Start Date: 08/26/22 Status: Ordered levothyroxine sodium 0.125 mg oral tablet (20 sources) l-Thyroxi ne Start: 05-22-2024 End: 05-09-2025 take 1 tablet by mouth once daily in the morning Levothyroxine 125 mcg tablet Active 0 .ROUTE .COMPLEX May 09, 2025 8:52am TAKE 1 TABLET BY MOUTH EVERY DAY IN THE MORNING ON AN EMPTY STOMACH Complies with drug therapy Start: 01-18-2024 End: 05-22-2024 take 1 tablet by mouth once daily in the morning Levothyroxine 137 mcg tablet Discontinued 0 .ROUTE .COMPLEX February 03, 2024 10:36am May 22, 2024 9:39am TAKE 1 TABLET BY MOUTH EVERY DAY IN THE MORNING ON AN EMPTY STOMACH Start: 01-18-2024 End: 01-18-2024 take 1 tablet by mouth once daily Levothyroxine 137 mcg tablet Discontinued 137 MCG PO Daily January 18, 2024 12:00am January 18, 2024 12:31pm Start: 08-06-2022 take 1 tablet by luis m th once daily levothyroxine 137 mcg (0.137 mg) Tab 137 mcg = 1 tab(s), Oral, Daily, Refills(s) 0, Thyroid Start Date: 08/06/22 Status: Ordered nystatin 100 unt/mg topical powder (10 sources) Polyene Antifungal Start: 10-30-2024 End: 10-30-2025 nystatin (Mycostatin) [id number] UNIT/GM powder Indications: Intertriginous candidiasis Apply topically 3 (three) times a day To affected area as needed 30 g 1 10/30/2024 10/30/2025 Active oxyCODONE hydrochloride 5 mg oral tablet (5 sources) Opioid Agonist take 1 tablet by mouth every six hours oxyCODONE HCl 5 MG 1 tablet as needed Orally every 6 hrs Active 24 hr venlafaxine 75 mg extended release oral capsule (20 sources) Serotonin and Norepinephrine Reuptake Inhibitor Start: 05-23-2025 take 1 capsule by mouth once daily Venlafaxine 75 mg capsule,extended release 24hr Active 0 .ROUTE .COMPLEX May 23, 2025 2:14pm TAKE 1 CAPSULE BY MOUTH EVERY DAY Complies with drug therapy Start: 05-14-2025 End: 05-23-2025 take 1 capsule by mouth once daily Venlafaxine 150 mg capsule,extended release 24hr Discontinued 0 .ROUTE .COMPLEX May 14, 2025 12:36pm May 23, 2025 2:14pm TAKE 1 CAPSULE BY MOUTH EVERY DAY Start: 05-08-2024 End: 05-14-2025 take 1 capsule by mouth once daily Venlafaxine 75 mg capsule,extended release 24hr Discontinued 0 .ROUTE .COMPLEX April 15, 2025 12:24pm May 14, 2025 12:37pm TAKE 1 CAPSULE BY MOUTH EVERY DAY Start: 05-08-2024 End: 08-24-2024 take 1 capsule by mouth once daily Venlafaxine 75 mg capsule,extended release 24hr Discontinued 0 .ROUTE .COMPLEX July 04, 2024 10:53am August 24, 2024 8:07am TAKE 1 CAPSULE BY MOUTH EVERY DAY Start: 05-08-2024 take 1 capsule by [facility] once daily Venlafaxine Active 0 .ROUTE .COMPLEX May 08, 2024 8:39am TAKE 1 CAPSULE BY MOUTH EVERY DAY Start: 12-19-2023 End: 12-20-2023 take 1 capsule by mouth once daily at mealtime Venlafaxine 75 mg capsule,extended release 24hr Discontinued 0 .ROUTE .COMPLEX December 19, 2023 12:59pm December 20, 2023 12:09pm TAKE ONE CAPSULE BY MOUTH ONCE DAILY WITH FOOD FOR 30 DAYS Start: 11-18-2023 End: 05-08-2024 take 1 capsule by mouth once daily Venlafaxine 75 mg capsule,extended release 24hr Discontinued 75 MG PO Daily December 20, 2023 12:26pm May 08, 2024 8:39am Start: 11-18-2023 venlafaxine XR (Effexor XR) 75 MG 24 hr capsule 11/18/2023 Active Start: 10-15-2022 take 1 capsule by mo [...] as needed Orally Twice a day Not-Taking fluticasone propionate 0.05 mg/actuat metered dose nasal spray (15 sources) Corticosteroid Start: 4 End: 5 take 1 spray(s) nasal route once daily Fluticasone Propionate 50 mcg/actuation spray,suspension Discontinued 2 SPRAY INTRANASAL Daily March 05, 2024 8:34am September 24, 2024 3:45pm administer into each nostril methylPREDNISolone 4 mg oral tablet (3 sources) Corticosteroid Start: 5 End: 5 take 1 tablet by mouth once Methylprednisolone (Medrol (Arnie)) 4 mg tablets,dose pack Discontinued 0 PO per package directions February 14, 2025 12:00am May 01, 2025 11:42am PO PER PKG DIR for 6 days 24 hr metoprolol succinate 25 mg extended release oral tablet (20 sources) beta-Adrenergic Pao Start: 4 End: 5 take 1 tablet by mouth once daily Metoprolol Succinate 25 mg tablet extended release 24 hr Discontinued 0 .ROUTE .COMPLEX November 05, 2024 8:38am March 19, 2025 3:53pm TAKE 1 TABLET BY MOUTH EVERY DAY FOR 90 DAYS Start: 08-30-2022 End: 05-31-2024 take 1 tablet by mouth once daily Metoprolol Succinate 25 mg tablet extended release 24 hr Discontinued 25 MG PO Daily January 18, 2024 12:00am May 31, 2024 10:27am take 1 tablet by luis m th every twenty-four hours in the morning metoprolol succinate XL (Toprol-XL) 25 MG 24 hr tablet Take 25 mg by mouth in the morning. Active Problems Active Problems Problem Classification Problem Date Documented Date Episodic/Chronic Allergic reactions (5 sources) Contact dermatitis; Translations: [Unspecified contact dermatitis due to other agents] 02-26-2025 Episodic Anxiety disorders (20 sources) Mixed anxiety and depressive disorder; Translations: [Other specified anxiety disorders] Chronic Cancer of breast (20 sources) Carcinoma in situ of breast; Translations: [Unspecified type of carcinoma in situ of unspecified breast] Onset: 05-06-2008 05-03-2023 Chronic Cancer of breast (1 source) History of malignant neoplasm of breast 08-06-2022 Episodic Conditions associated with dizziness or vertigo (2 sources) Dizziness; Translations: [Dizziness and giddiness] 02-20-2025 Episodic Diabetes mellitus without complication (20 sources) Impaired fasting glucose; Translations: [Impaired fasting glycemia] Onset: 05-25-2022 Resolved: 02-25-2025 Episodic Essential hypertension (20 sources) Essential (primary) hypertension; Translations: [Essential hypertension] Onset: 05-20-2022 Resolved: 02-25-2025 Chronic Immunizations and screening for infectious disease (2 sources) Patient encounter status; Translations: [Encounter for screening for human papillomavirus (HPV)] 10-30-2024 Episodic Malaise and fatigue (6 sources) Asthenia; Translations: [Other malaise] 05-23-2024 Episodic Menopausal disorders (2 sources) Postmenopausal bleeding; Translations: [Postmenopausal bleeding] 10-30-2024 Chronic Mycoses (2 sources) Candidal intertrigo; Translations: [Candidiasis of skin and nail] 10-30-2024 Episodic Osteoarthritis (20 sources) Osteoarthritis of knee; Translations: [Unilateral primary osteoarthritis, right knee] Onset: 08-26-2022 Chronic Other circulatory disease (12 sources) Elevated blood-pressure reading without diagnosis of hypertension; Translations: [Elevated blood-pressure reading, without diagnosis of hypertension] Episodic Other connective tissue disease (20 sources) History of right total knee replacement; Translations: [Presence of right artificial knee joint] Onset: 04-20-2023 04-20-2023 Chronic Other connective tissue disease (16 sources) Other symptoms and signs involving the musculoskeletal system; Translations: [Other musculoskeletal symptoms referable to limbs] 05-29-2024 Episodic Other connective tissue disease (2 sources) Impaired body position sense; Translations: [Other symptoms and signs involving the nervous system] 02-25-2025 Episodic Other ear and sense organ disorders (12 sources) Hearing loss; Translations: [Unspecified hearing loss, bilateral] Chronic Other ear and sense organ disorders (7 sources) Bilateral hearing loss; Translations: [Unspecified hearing loss, bilateral] Chronic Other ear and sense organ disorders (1 source) Unspecified hearing loss, bilateral Chronic Other ear and sense organ disorders (20 sources) Past history of procedure; Translations: [Myringotomy tube(s) status] Onset: 05-03-2023 05-03-2023 Chronic Other ear and sense organ disorders (20 sources) Mixed conductive AND sensorineural hearing loss; Translations: [Mixed conductive and sensorineural hearing loss, unilateral, right ear with restricted hearing on the contralateral side] Onset: 05-03-2023 05-03-2023 Chronic Other ear and sense organ disorders (20 sources) Mixed conductive and sensorineural hearing loss, bilateral; Translations: [Mixed conductive and sensorineural hearing loss, bilateral] Onset: 05-03-2023 05-03-2023 Chronic Other ear and sense organ disorders (20 sources) Sensorineural hearing loss, bilateral; Translations: [Sensorineural hearing loss, bilateral] Onset: 05-03-2023 05-03-2023 Chronic Other female genital disorders (8 sources) Abnormal vaginal bleeding; Translations: [Abnormal uterine and vaginal bleeding, unspecified] Onset: 02-25-2025 Resolved: 02-25-2025 09-24-2024 Chronic Other female genital disorders (1 source) Abnormal uterine and vaginal bleeding, unspecified; Translations: [Other specified noninflammatory disorders of vagina] 09-24-2024 Chronic Other female genital disorders (2 sources) Abnormal uterine bleeding; Translations: [Abnormal uterine and vaginal bleeding, unspecified] 10-30-2024 Chronic Other nervous system disorders (2 sources) Idiopathic peripheral neuropathy; Translations: [Hereditary and idiopathic neuropathy, unspecified] 05-23-2024 Chronic Other nervous system disorders (13 sources) Impairment of balance; Translations: [Other abnormalities of gait and mobility] Onset: 02-25-2025 Resolved: 02-25-2025 02-13-2024 Episodic Other nervous system disorders (1 source) Other abnormalities of gait and mobility; Translations: [Abnormality of gait] 06-05-2024 Episodic Other nervous system disorders (2 sources) Ataxia; Translations: [Ataxia, unspecified] 05-23-2024 Episodic Other nervous system disorders (2 sources) Paresthesia; Translations: [Paresthesia of skin] 05-23-2024 Episodic Other non-traumatic joint disorders (12 sources) [...] Chronic Other nutritional; endocrine; and metabolic disorders (20 sources) Obesity caused by energy imbalance; Translations: [Morbid (severe) obesity due to excess calories] Onset: 05-03-2023 05-03-2023 Chronic Other nutritional; endocrine; and metabolic disorders (20 sources) Morbid obesity; Translations: [Morbid (severe) obesity due to excess calories] Onset: 05-03-2023 05-03-2023 Chronic Other screening for suspected conditions (not mental disorders or infectious disease) (2 sources) Cancer cervix screening status; Translations: [Encounter for screening for malignant neoplasm of cervix] 10-30-2024 Episodic Otitis media and related conditions (20 sources) Bilateral chronic serous otitis; Translations: [Chronic serous otitis media, bilateral] Onset: 05-03-2023 05-03-2023 Chronic Otitis media and related conditions (20 sources) Non-suppurative otitis media; Translations: [Unspecified nonsuppurative otitis media, bilateral] Onset: 02-25-2025 Resolved: 02-25-2025 Episodic Residual codes; unclassified (2 sources) Postmenopausal state; Translations: [Asymptomatic menopausal state] 10-30-2024 Episodic Thyroid disorders (20 sources) Hypothyroidism, unspecified; Translations: [Hypothyroidism] Onset: 11-21-2012 08-06-2022 Chronic Past or Other Problems Problem Classification Problem Date Documented Da te Episodic/Chronic Cancer of uterus (4 sources) Malignant neoplasm of endometrium of corpus uteri ; Translations: [Malignant neoplasm of endometrium] Onset: 11-23-2024 Resolved: 02-25-2025 02-25-2025 Chronic Other ear and sense organ disorders (20 sources) Bilateral tinnitus; Translations: [Tinnitus, bilateral] Onset: 05-03-2023 05-03-2023 Episodic Results Test Name Value Interpretation Reference Range Facil ity No Panel Informationon 03-27 Radiology Study observation (narrative) [facility] XR Knee - left 3 [facility] Result: Xrays taken in the office today saved to the permanent record, AP, sunrise and lateral weightbearing films, show stable position and alignment of the bilateral TKA prosthesis. No sign of loosening, fracture or infection. [facility] videof.me XR Knee - right 3 [facility] Result: Xrays taken in the office today saved to the permanent record, AP, sunrise and lateral weightbearing films, show stable position and alignment of the bilateral TKA prosthesis. No sign of loosening, fracture or infection. [facility] No Panel Informationon 02-20 [employer] Audiometry Audio indicated essentially a mild to severe sensorineural hearing loss, bilaterally. Today's audio is consistent with previous results recorded 05-03-2023. [facility] TISSUE PATHOLOGYon A COMMENT Normal [facility] Comment on above: Result Comment: Hist ologic sections demonstrate fragments of a malignant neoplasm characterized predominantly of monotonous, cohesive epithelioid cells with a solid growth pattern as well as a minor component of a well-differentiated glandular adenocarcinoma. Areas of possible squamous differentiation are present within the solid component. Immunostains were performed with appropriate controls at [facility] to further characterize the malignancy. The neoplastic cells are strongly and diffusely PAX8 and ER positive and demonstrate patchy positivity to p16, cytokeratin AE1/3, ROSALIND and CK7. They demonstrate wild-type p53 staining and are negative for chromogranin and synaptophysin. Overall, the findings are compatible with an endometrioid adenocarcinoma with prominent solid growth pattern. The morphologic and immunophenotypic profile favor an endometrioid adenocarcinoma with solid growth, FIGO grade 3; however a dedifferentiated carcinoma cannot be entirely excluded. Definitive classification is deferred to an excision specimen. Immunohistochemical stains for mismatch repair proteins in endometrial carcinoma: Results: Mismatch repair proteins MLH1 and PMS2 are not expressed in carcinoma nuclei. Mismatch repair (MMR) status: Deficient Immunohistochemical (IHC) staining patterns of each MMR protein: PMS2 - not expressed in carcinoma nuclei; MLH1 - not expressed in carcinoma nuclei; MSH-6 - expressed in carcinoma nuclei; MSH-2 - expressed in carcinoma nuclei. MMR-IHC was performed on tissue block A at [facility] (with appropriate controls) to assist in screening for Cruz syndrome. Most tumors with loss of MLH-1 and PMS-2 protein expression have primary underlying defects in MLH-1 expression, with coexisting loss of expression of the binding partner protein PMS-2. In most cases, MLH-1 loss is caused by somatic hypermethylation inactivation of the promoter region of the MLH1 gene. As clinically indicated, genetic counseling with informed patient consent may be helpful. All positive and negative immunohistologic controls stain appropriately. Performance characteristics of immunohistologic tests have been determined by the [facility] in a manner consistent with CLIA requirements. The [facility] is regulated under CLIA as qualified to perform high-complexity testing. One or more of these tests may not have not been cleared or approved by the FDA. The FDA does not require this test to go through premarket FDA review. These tests are used for clinical purposes and should not be regarded as investigational or for research. 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 Performed By: #### 3 542 #### [place] [id number] [facility], [place] [address] Lithographic Stripper: Luci M Share MD A GROSS DESCRIPTION Normal [facility] Comment on above: Result Comment: Rece ived in 10% neutral buffered formalin is a specimen labeled endometrial biopsy that consists of multiple, irregular fragments of oakes-purple tissue admixed with blood, measuring in aggregate 6.0 x 3.0 x 0.5 cm. Submitted entirely in two cassette(s). SW Performed By: #### 3 542 #### [id number], [facility] [place] [address] Lithographic Stripper: Luci Smith MD A SOURCE Normal [facility] Comment on above: Result Comment: Endo metrium, biopsy: Performed By: #### 3 542 #### Danielle [address], [facility] [place] [address] Lithographic Stripper: Luci Smith MD CLINICAL INFORMATION Normal [facility] Comment on above: Result Comment: N95. 0 Performed By: #### 3 542 #### [email or web address], [facility] [place] [address] Lithographic Stripper: Luci Smith MD Pathologist Cyto stain Nom (Cvx/Vag) [ID] Normal [facility] Comment on above: Result Comment: Faye Holley M.D. Board certified in Anatomic Pathology and Clinical Pathology (electronic signature) [phone] Performed By: #### 3 542 #### [email or web address], [facility] [place] [address] Lithographic Stripper: Luci Smith MD REPORT NOTES Normal [facility] Comment on above: Result Comment: Dr. Luci Smith has reviewed this case and concurs with the above diagnosis. An attempt was made to contact Dr. Kay regarding the results of this case on 11/09/2024. This report was faxed to her office. Performed By: #### 3 542 #### [id number], [facility] [place] [address] Lithographic Stripper: Luci Smith MD THINPREP TIS PAP AND HPV mRN A E6/E7 WITH REFLEX TO HPV 16,18/45on 11-01-2024 CLINICAL INFORMATION: Normal [facility] Comment on above: Result Comment: None given Performed By: #### 9 1414 #### [facility] [place] [address] Lithographic Stripper: Jose Paz MD COMMENT Normal [facility] Comment on above: Result Comment: EXPL ANATORY NOTE: The Pap is a screening test for cervical cancer. It is not a diagnostic test and is subject to false negative and false positive results. It is most reliable when a satisfactory sample, regularly obtained, is submitted with relevant clinical findings and history, and when the Pap result is evaluated along with historic and current clinical information. Performed By: #### 9 1414 #### [facility] [place] [address] Lithographic Stripper: Jose Paz MD COMMENT: Normal [facility] Comment on above: Result Comment: This case could not be evaluated with computer assisted technology. The slide was manually screened according to routine procedures. Parabasal cells in smears that lack maturation due to atrophy or other hormonal reasons cannot be differentiated from transformation zone cells. Accordingly, presence or absence of endocervical or transformation zone components cannot be reported in this patient. Performed By: #### 9 1414 #### [facility] [place] [address] Lithographic Stripper: Jose Paz MD CASINO GAMING WORKER: Normal [facility] Comment on above: Result Comment: BRONSON DIALLO(ASCP) CT Screening Location: [place] [address]. Performed By: #### 9 1414 #### [facility] [place] [address] Lithographic Stripper: Jose Paz MD HPV mRNA E6/E7 Not detected Normal Not Detected [facility] Comment on above: Result Comment: Meth odology: [employer]-Mediated Amplification This assay detects E6/E7 viral messenger RNA (mRNA) from 14 high-risk HPV types (16,18,31,33,35,39,45,51,52,56,58,59,66,68). Cervical sources are required for HPV testing. If a vaginal source from a patient who has had a total hysterectomy with removal of cervix was submitted, please contact the testing laboratory for alternative testing options. For additional information, please refer to http://education.elarm/faq/YEQ879u9 (This link if provided for information/ educational purposes only.) Performed By: #### 9 1414 #### [facility] [place] [address] Lithographic Stripper: Jose Paz MD INTERPRETATION/RESU LT: Normal [facility] Comment on above: Result Comment: Cyto logy Results: Negative for intraepithelial lesion or malignancy. Atrophic pattern; predominantly parabasal cells Performed By: #### 9 1414 #### [facility] [place] [address] Lithographic Stripper: Jose Paz MD LMP: Normal [facility] Comment on above: Result Comment: None given Performed By: #### 9 1414 #### [facility] [place] [address] Lithographic Stripper: Jose Paz MD PREV. BX: Normal [facility] Comment on above: Result Comment: None given Performed By: #### 9 1414 #### [facility] [place] [address] Lithographic Stripper: Jose Paz MD PREV. PAP: Normal [facility] Comment on above: Result Comment: None given Performed By: #### 9 1414 #### [facility] [place] [address] Lithographic Stripper: Jose Paz MD REVIEW CASINO GAMING WORKER: Normal [facility] Comment on above: Result Comment: LLT, CT(ASCP) CT screening location: [place] [address]. Performed By: #### 9 1414 #### [facility] [place] [address] Lithographic Stripper: Jose Paz MD SOURCE: Normal [facility] Comment on above: Result Comment: None given Performed By: #### 9 [id number] #### [facility] [address], [address] Lithographic Stripper: Jose Paz MD STATEMENT OF ADEQUACY: Normal [facility] Comment on above: Result Comment: SATI SFACTORY FOR EVALUATION Performed By: #### 9 [id number] #### [facility] [address], [address] Lithographic Stripper: Jose Paz MD No Panel Informationon 10-30 Alma Kay DO 10/31/2024 6:13 PM Endometrial biopsy Date/Time: 10/30/2024 3:33 PM Performed by: Alma Kay DO Authorized by: Alma Kay DO Consent: Consent obtained: verbal Consent given by: patient Risks discussed: bleeding, pain and infection Alternatives discussed: observation Patient agrees, verbalizes understanding, and wants to proceed: yes Indications: Indications: postmenopausal bleeding Chronicity of post-menopausal bleeding: recurrent Progression of post-menopausal bleeding: worsening Pre-procedure: Urine test: N/A Anesthesia premedication: None. Procedure: A bimanual exam was performed: yes Uterus position: anteverted Prepped with: Betadine Tenaculum used: yes A local block was performed: no Local anesthetic: none Cervix dilated: no Number of passes: 6 Findings: Cervix: normal Uterus depth by sound (cm): 10 Specimen collected: specimen collected and sent to pathology Patient tolerance: tolerated well, no immediate complications [facility] Basophils Auto (Bld) [#/Vol] on 07-27-2024 Basophils (Bld) [#/Vol] Automated basophil count 0.0-0.1 [facility] Basophils/100 WBC Auto (Bld) on 07-27-2024 Basophils/100 WBC (Bld) Automated basophil % 0.2-2.0 [facility] Eosinophils/100 WBC Auto (Bl d)on 07-27-2024 Eosinophils/100 WBC (Bld) Automated eosinophil % 0.9-7.0 [facility] Erythrocyte distribution wid th Auto (RBC) [Ratio]on 07-27-2024 Erythrocyte distribution width (RBC) [Ratio] Erythrocyte distribution width [Ratio] by Automated count 11.0-15.0 [facility] Glucose mean value [Mass/vol ume] in Blood Estimated from glycated hemoglobinon 07-27-2024 Average glucose Estimated from glycated hemoglobin (Bld) [Mass/Vol] Glucose mean value [Mass/volume] in Blood Estimated from glycated hemoglobin [facility] Hematocrit Auto (Bld) [Volum e fraction]on 07-27-2024 Hematocrit (Bld) [Volume fraction] Hematocrit [Volume Fraction] of Blood by Automated count High 36.0-48.0 [facility] Hemoglobin [Mass/volume] in Bloodon 07-27-2024 Hemoglobin (Bld) [Mass/Vol] Hemoglobin [Mass/volume] in Blood High 12.0-16.0 [facility] Laboratory - Chemistry and C hemistry - challengeon 07-27-2024 Free T4 [Mass/Vol] 1.32 ng/dL 0.76-1.46 [facility] TSH Qn 0.648 m[IU]/L 0.358-3.740 [facility] Laboratory - Hematology and Cell countson 07-27-2024 HbA1c (Bld) [Mass fraction] 6.1 % 4.5-6.2 [facility] Comment on above: ADA RECOMMENDED LIMI T 4.0 - 6.0ADA THERAPEUTIC TARGET < 7.0ACTION SUGGESTED> 7.0 Immature granulocytes/100 WBC (Bld) 0.2 % 0.0-0.5 [facility] Leukocytes [#/volume] correc bright for nucleated erythrocytes in Blood by Automated counon 07-27-2024 WBC corrected for nucl RBC Auto (Bld) [#/Vol] Leukocytes [#/volume] corrected for nucleated erythrocytes in Blood by Automated coun 4.0-11.0 [facility] Lymphocytes Auto (Bld) [#/Vo l]on 07-27-2024 Lymphocytes (Bld) [#/Vol] Lymphocytes [#/volume] in Blood by Automated count Low 1.2-3.8 [facility] Lymphocytes/100 WBC Auto (Bl d)on 07-27-2024 Lymphocytes/100 WBC (Bld) Lymphocytes/100 leukocytes in Blood by Automated count Low 20.5-60.0 [facility] MCH Auto (RBC) [Entitic mass ]on 07-27-2024 MCH (RBC) [Entitic mass] MCH [Entitic mass] by Automated count 26.7-34.0 [facility] MCHC Auto (RBC) [Mass/Vol]on 07-27-2024 MCHC (RBC) [Mass/Vol] MCHC [Mass/volume] by Automated count 29.9-35.2 [facility] MCV Auto (RBC) [Entitic vol] on 07-27-2024 MCV (RBC) [Entitic vol] MCV [Entitic volume] by Automated count 81.0-99.0 [facility] Monocytes Auto (Bld) [#/Vol] on 07-27-2024 Monocytes (Bld) [#/Vol] Automated blood monocyte count 0.3-0.8 [facility] Monocytes/100 WBC Auto (Bld) on 07-27-2024 Monocytes/100 WBC (Bld) Automated monocyte % 1.7-12.0 [facility] Neutrophils Auto (Bld) [#/Vo l]on 07-27-2024 Neutrophils (Bld) [#/Vol] Neutrophils [#/volume] in Blood by Automated count 1.4-6.5 [facility] Neutrophils/100 WBC Auto (Bl d)on 07-27-2024 Neutrophils/100 WBC (Bld) Automated neutrophil % 43.0-75.0 [facility] No Panel Informationon 07-27 Eosinophils # (Auto) 0.1 10 3/uL 0.0-0.7 [facility] Immature Granulocyte # (Auto) 0.01 10 3/uL 0.00-0.03 [facility] Platelet mean volume Auto (B ld) [Entitic vol]on 07-27-2024 Platelet mean volume (Bld) [Entitic vol] Platelet mean volume [Entitic volume] in Blood by Automated count Low 9.5-13.5 [facility] Platelets Auto (Bld) [#/Vol] on 07-27-2024 Platelets (Bld) [#/Vol] Platelets [#/volume] in Blood by Automated count 150-450 [facility] RBC Auto (Bld) [#/Vol]on RBC (Bld) [#/Vol] Erythrocytes [#/volume] in Blood by Automated count High 4.20-5.40 [facility] Basophils Auto (Bld) [#/Vol] on 05-19-2024 Basophils (Bld) [#/Vol] 0.1 10 3/uL 0.0-0.1 [facility] Basophils/100 WBC Auto (Bld) on 05-19-2024 Basophils/100 WBC (Bld) 1.8 % 0.2-2.0 [facility] Cholesterol in LDL Calc [Mas s/Vol]on 05-19-2024 Cholesterol in LDL [Mass/Vol] 112.0 mg/dL [facility] Comment on above: <100 mg/dl [id number] 0-129 mg/dl NEAR OR ABOVE [id number] mg/dl BORDERLINE [id number] mg/dl HIGH>190 mg/dl VERY HIGH Cholesterol in VLDL Calc [Ma ss/Vol]on 05-19-2024 Cholesterol in VLDL [Mass/Vol] 40.8 mg/dL [facility] Eosinophils/100 WBC Auto (Bl d)on 05-19-2024 Eosinophils/100 WBC (Bld) 3.1 % 0.9-7.0 [facility] Erythrocyte distribution wid th Auto (RBC) [Ratio]on 05-19-2024 Erythrocyte distribution width (RBC) [Ratio] 14.0 % 11.0-15.0 [facility] Estimated glomerular filtrat ion rate (GFR) non- Americanon 05-19-2024 GFR/1.73 sq M.predicted among non-blacks MDRD (S/P/Bld) [Vol rate/Area] mL/min/{1.73_m2} >=60 [facility] Globulin Calc (S) [Mass/Vol] on 05-19-2024 Globulin (S) [Mass/Vol] 3.3 g/dL [facility] Hematocrit Auto (Bld) [Volum e fraction]on 05-19-2024 Hematocrit (Bld) [Volume fraction] 47.9 % 36.0-48.0 [facility] Hemoglobin [Mass/volume] in Bloodon 05-19-2024 Hemoglobin (Bld) [Mass/Vol] 16.0 g/dL 12.0-16.0 [facility] Laboratory - Chemistry and C hemistry - challengeon 05-19-2024 Albumin [Mass/Vol] 3.6 g/dL 3.4-5.0 [facility] ALP [Catalytic activity/Vol] 76 U/L 46-116 [facility] ALT [Catalytic activity/Vol] 22 U/L 14-59 [facility] AST [Catalytic activity/Vol] 13 U/L Low 15-37 [facility] Bilirubin [Mass/Vol] 0.5 mg/dL 0.2-1.0 [facility] Calcium [Mass/Vol] 9.5 mg/dL 8.5-10.1 [facility] Chloride [Moles/Vol] 104 mmol/L 98-107 [facility] Cholesterol [Mass/Vol] 199 mg/dL <=200 [facility] Cholesterol in HDL [Mass/Vol] 47 mg/dL 40-60 [facility] Comment on above: > or =60 mg/dl - LOW CARDIOVASCULAR RISK<40 mg/dl - HIGH CARDIOVASCULAR RISK CO2 [Moles/Vol] 27.2 mmol/L 21.0-32.[address] [facility] Creatinine [Mass/Vol] 0.74 mg/dL 0.55-1.02 [facility] Free T4 [Mass/Vol] 1.45 ng/dL 0.76-1.46 [facility] GFR/1.73 sq M.predicted MDRD (S/P/Bld) [Vol rate/Area] mL/min/{1.73_m2} >=60 [facility] Glucose [Mass/Vol] 114 mg/dL High 74-106 [facility] Potassium [Moles/Vol] 4.0 mmol/L 3.5-5.1 [facility] Protein [Mass/Vol] 6.9 g/dL 6.4-8.2 [facility] Sodium [Moles/Vol] 137 mmol/L 136-145 [facility] Triglyceride [Mass/Vol] 204 mg/dL High <=150 [facility] TSH Qn 0.198 m[IU]/L Low 0.358-3.740 [facility] Urea nitrogen [Mass/Vol] 15.0 mg/dL 7.0-18.0 [facility] Urea nitrogen/Creatinine [Mass ratio] 20.3 mg/mg [facility] Laboratory - Hematology and Cell countson 05-19-2024 Immature granulocytes/100 WBC (Bld) 0.3 % 0.0-0.5 [facility] Leukocytes [#/volume] correc bright for nucleated erythrocytes in Blood by Automated counon 05-19-2024 WBC corrected for nucl RBC Auto (Bld) [#/Vol] 3.9 10 3/uL Low 4.0-11.0 [facility] Lymphocytes Auto (Bld) [#/Vo l]on 05-19-2024 Lymphocytes (Bld) [#/Vol] 0.7 10 3/uL Low 1.2-3.8 [facility] Lymphocytes/100 WBC Auto (Bl d)on 05-19-2024 Lymphocytes/100 WBC (Bld) 18.5 % Low 20.5-60.0 [facility] MCH Auto (RBC) [Entitic mass ]on 05-19-2024 MCH (RBC) [Entitic mass] 28.9 pg 26.7-34.0 [facility] MCHC Auto (RBC) [Mass/Vol]on 05-19-2024 MCHC (RBC) [Mass/Vol] 33.4 g/dL 29.9-35.2 [facility] MCV Auto (RBC) [Entitic vol] on 05-19-2024 MCV (RBC) [Entitic vol] 86.5 fL 81.0-99.0 [facility] Monocytes Auto (Bld) [#/Vol] on 05-19-2024 Monocytes (Bld) [#/Vol] 0.4 10 3/uL 0.3-0.8 [facility] Monocytes/100 WBC Auto (Bld) on 05-19-2024 Monocytes/100 WBC (Bld) 10.0 % 1.7-12.0 [facility] Neutrophils Auto (Bld) [#/Vo l]on 05-19-2024 Neutrophils (Bld) [#/Vol] 2.6 10 3/uL 1.4-6.5 [facility] Neutrophils/100 WBC Auto (Bl d)on 05-19-2024 Neutrophils/100 WBC (Bld) 66.3 % 43.0-75.0 [facility] No Panel Informationon 05-19 Eosinophils # (Auto) 0.1 10 3/uL 0.0-0.7 [facility] Immature Granulocyte # (Auto) 0.01 10 3/uL 0.00-0.03 [facility] Platelet mean volume Auto (B ld) [Entitic vol]on 05-19-2024 Platelet mean volume (Bld) [Entitic vol] 9.4 fL Low 9.5-13.5 [facility] Platelets Auto (Bld) [#/Vol] on 05-19-2024 Platelets (Bld) [#/Vol] 228 10 3/uL 150-450 [facility] RBC Auto (Bld) [#/Vol]on RBC (Bld) [#/Vol] 5.54 10 6/uL High 4.20-5.40 [facility] Serum or plasma albumin/glob ulin mass ratioon 05-19-2024 Albumin/Globulin [Mass ratio] 1.1 {ratio} [facility] Serum or plasma anion gap de terminationon 05-19-2024 Anion gap [Moles/Vol] 9.8 mmol/L [facility] Serum or plasma total choles terol/high density lipoprotein (HDL) cholesterol mass alaina 05-19-2024 Cholesterol.total/C holesterol in HDL [Mass ratio] 4.2 {ratio} [facility] Comment on above: 3.3 - 4.4 LOW RISK4. 4 - 7.1 AVERAGE RISK7.1 - 11.0 MODERATE RISK>11.0 HIGH RISK Albumin [Mass/volume] in Ser um or Plasmaon 01-10-2024 Albumin [Mass/Vol] 3.8 g/dL 2.9-4.4 [facility] Glucose mean value [Mass/vol ume] in Blood Estimated from glycated hemoglobinon 01-10-2024 Average glucose Estimated from glycated hemoglobin (Bld) [Mass/Vol] 123 mg/dL [facility] Laboratory - Chemistry and C hemistry - challengeon 01-10-2024 Cobalamin (Vitamin B12) [Mass/Vol] 359.0 pg/mL 193.0-986.0 [facility] TSH Qn 1.183 m[IU]/L 0.358-3.740 [facility] Laboratory - Hematology and Cell countson 01-10-2024 HbA1c (Bld) [Mass fraction] 5.9 % 4.5-6.2 [facility] Comment on above: ADA RECOMMENDED LIMI T 4.0 - 6.0ADA THERAPEUTIC TARGET < 7.0ACTION SUGGESTED> 7.0 No Panel Informationon 01-09 Folate 13.70 ng/mL 8.60-58.90 [facility] Protein Electrophoresis M-Tu Not Observed g/dL Not Observed [facility] Protein Electrophoresis Note Comment . [facility] Comment on above: Protein electrophore sis scan will follow via computer,mail, or long haul truck driver delivery.Performed at: [facility] [id number] Director: Rylan Agustin PhD, Phone: [phone] Protein [Mass/volume] in Ser um or Plasmaon 01-10-2024 Protein [Mass/Vol] 6.6 g/dL 6.0-8.5 [facility] Serum globulin measurement ( mass/volume)on 01-10-2024 Globulin (S) [Mass/Vol] 2.8 g/dL 2.2-3.9 [facility] Serum or plasma albumin/glob ulin mass ratioon 01-10-2024 Albumin/Globulin [Mass ratio] 1.4 {ratio} 0.7-1.7 [facility] Serum or plasma alpha 1 glob ulin measurement by electrophoresis (mass/volume)on 01-10-2024 Alpha 1 globulin Elph [Mass/Vol] 0.2 g/dL 0.0-0.4 [facility] Serum or plasma alpha 2 glob ulin measurement by electrophoresis (mass/volume)on 01-10-2024 Alpha 2 globulin Elph [Mass/Vol] 0.8 g/dL 0.4-1.0 [facility] Serum or plasma beta globuli n measurement by electrophoresis (mass/volume)on 01-10-2024 Beta globulin Elph [Mass/Vol] 0.9 g/dL 0.7-1.3 [facility] Serum or plasma gamma globul in measurement by electrophoresis (mass/volume)on 01-10-2024 Gamma globulin Elph [Mass/Vol] 0.8 g/dL 0.4-1.8 [facility] Coding Summary.on 12-20-2022 Coding Summary. CD:[id number] Ww +PGhlYWQ+[id number] EHwwC5qU7GHSScKDacyARE RCMvOLjOrlkPxCN5xoYSmD XJu IC8+DQ7oFCJhXvvmdADbr0 L5xVY7V28gjk0oEZgbnVQ6 XQScGlRfyswlu1czuXg8LM cuNmluOyBt HLNqpY14PDJ1iP42Dd07wO UrhUGjo4tpzLq8CuAxQOKl GWM5xJqpFMbvv0QeLDUfA1 7poNPpl2O4 ZXCkkEgydCUpTbFhmSL0qP 4uFGsosuvig2pbvgxnSjz1 se77eHCcj0K7fZN2H3Tntk U1NMMcwONx TigumBEHtU9mhqhcx1whbe hkPsKbUFUeLQs4QBr9QLNg jJctZzWeYL73JJW7LPDeat YsV2AhLEZu vXxgNqA1q1L5Dg6RL2ELEi cyS8UALZCKZSgpsKE+PC90 yq65U2LwNesnJgt4XVUuHQ I2xWI7xD3f UWGnRYzhv2V0iEN0H6Rleq Poxl4qd7qnRNSqJTqtR86p lHLqn0I2XWMvlQX6MLEhlG twFlObrI35 Oyc+CAYrhYezq9DwFldbg9 oip4xtbBo8BabtRLNpkzFw uKfcBVE5c3LrHw6jEDZhfX U0aXD2bM0z OzKiHhR7BHhfC202ZsAusZ IyJuxzR89bE6XqaEE+PHRy Qeg9IRNcyGpsHH7nD9RtBL RpbmctbGVm yWfrYZ9iMBVnbicqRAFqrY 3tXVXvJ1v4PrBkHpI3RIfk H4ZcIIQqgwhqCl84rS7yMm ImYpM5NUlc N0HxhzB4QTFpuORfYWjlDB Y9A33ne5F6BSDsSBNsHIJ4 hHQ1nE8ykXnybauyjXOjqB sgdmVydGlj QJggWRjmU934RMCdiJxhMb NvZGluZyBEYXRlOiAgMDQv MjQvMjAyMzwvdGQ+PHRkIH E9yUvfVYWx rDMlHBgmWu6rwAkwvLwaUI 4dTWFxeepqAYJzvM5qIHXx tBJltOhsKT9nVXFxvgnmp3 68ImPpTJZ7 FIGxbSGoQ1MktP7cAbZhJE WiSNSxS2OeyDAwINprH330 LMfzQkQ5PTJxciGbV4IxYY FsaWduOiB0 y2S2Ga5Xl9XvaroaK6HzfW SuRgEtTlmrVBs2Y3XuAfaw dHI+KI75FJXgFY12FIp7MF P0sUgnYJpu GPHpO8MbtE5vMkDcWWUtSC RkOyc+PHRhYmxlIHdpZHRo BLdmMBGfKaJprGfdEK7aMd 9yZGVyLWNv yZijfKRwXoRps8tmDQGtGR ebWX8eeSxkC0XwmQE6URUl p3k1Eh02B77aP0BdnZA+PG JsvKH0uAC8 tM0kWtVnCuS5XNhaM277Tu JmsVJhOnkwh6gnz8lvgQh4 QmY8HQUmfnKwcQqtDSG2o2 RaMr08F66f IHdpZHRoPSIxNSUiIHZhbG ryjz4kyO1wUv6+PGNvbCB3 lIQ2pT8hDxPePgI1IJvnN6 49InRvcCIv Shfim2hwq5bjzGb6GsMfNT BlqeJddMyiSSZ5t4ItPx16 Z4TyjMmfm7WeEjy7tn29vJ Vbw2J4uGU7 L6PhCEUrnxuivSWihYdnXM 0aIEPwugcfSSDduQ7tOQBt L4u2WdVhZnM9JNdnJ8Ardj L5LSPfjTFp YROznOIOgW5twhcfy1qtib vjDjTwSJRuNEi7GDk2FUOo yXxkSoVtIUS8SyU5AXB3sX ZrfG6arErh bscokI6iWiv+RIF9gICguF ZKQC3eDymerLN+PHRkIHN0 sGhlHSczLCJigK2qPYDvT0 m1RkYrJrE0 ZMudM3SzcgS6YUAdzNPhXA TodHFRuX8urpopz2djtjoi HiBqKWAeSQd3PQc5QGUesW duOiBsZWZ0 LxI2QWN2cEVszO9aeKpgbw yhyF1jEiu+QmlydGggRGF0 UEz6H0VxHsy0ZCZgfSegYK 0ncGFkZGlu Ee3azSripYpvNQ5mPMXtkt tsb991GxTup9rbZOZmlTUd ZXclAJF9I51cl2M3KRYbBE UiPYN7zOA3 iB7vhNkmwyxgtNNipYtmri JiwCuwLDryIZedB504QJSd iKekBoFtQZn2K9XrOlo5UV RdsHxpQU7u aIZtDPbeEf0pfVxynPirCB 7qKOVlkduka025LdMjh8po XQGrcIPqVVwuSTN0B52vn2 H7BRYbASVw VGK0cPZ3pN0meIudswpbtF VmdDsgdmVydGljYWwtYWxp W613ZBUmkJiwYwFnmGm7V5 IyDmm5TATx aPrhJQ8jqBNpSUjcOy0dcS gjlLocAA1lMMNaicgjo047 QjMfj6grFTEdkQNcDBmeJV Y7N16vm1J2 QOXqEEArZAA4pFP3aW1sxK lnbjogbGVmdDsgdmVydGlj CXeqGDazM872BYLjxIhyUh BhdGllbnQg LVqaKMi2E8RuDtopsAS+PC 13TXVbCE23pXWuzMNqg1wq dXi0UuLhHQHdPWI7kPezZS efe5BdBBEy T03ndVAlg7U2TOAnySxiaE DsMkClzIZ4pE6pNYbkbern x4bihdzhVmdjd9uonu79mH 79M24fEFbx ZHRoPSIzMCUiIHZhbGlnbj 0ywP9fVl9+SHGlzCP6kPS9 iU0sSUUlUaZ1JDdlV877Dc RvcCIvPjxj o6oll8ffsVp5ZcM0XFDwef KpxOqmWHE5f4FeZn50S27v IHdpZHRoPSIyMCUiIHZhbG lhxh1lbV9z Ii8+ACTynTU8fWI7sF9pCm OeDzM4WGrnU392BtZjsAOy LxtoR84mU1JnaVC+PHRyPj c3HHIrbKqj JD8qkVGwWVscIn8yVYR2Xt HzSaAoBDikA3MdOSEcseks opzljAL6GEZxDHEsvO09Zr 9udDogMTBw pFLTpS0jxhxtn3mvtdjqZs ZjDVDtGRt0RQr4INBjmIbs FzRfLVH5KwG2PFW6yPCdfZ 1hbGlnbjog xR7rF7ZcSMPevhuoJa94rJ 6gYiGdVnT6AKudYgy+Uk9I BdOWH5wIAyjiZ6KUWG05Z5 BuHlb4UCBm dPuuWV9uqXCuGQozMu7moC nrvIsqSO2nSOWrogjtSOWh pN5kQXNyiXGzwDtuWX4yIS Qhgvyho556 JtXuKGW0XSFpuDBoB8HslE 4jPhVzMUEoLTAhL0XvhLQp KOzeT434FLysGcS5XXEcqg FvG9JxYGGk bXuvNhU8f9K2Od9tNc0bUJ 2qRRV6IH90KU78rTFrt9A1 jLR6N8HxHREnuokpzarddW B8ZEWgTXLu lM75qPRbIMjzIk8tq3E9u2 84CPTvFGYqnN64Af3frIcx AZYstNYQgQ4akvoqg4kjwq ogIzAwMDAw MUn0JFn4VCOpuVcnFiCbPA U2FtV5KUV3jJAkiV4lcIzm rfgfiA3aRqv+NjggWWVhcn L6G3VjOyw8 LVEvzPdtOM7spFRfNGucLd 3blDcdrAggMV4gDWVpjzii YRYwrT5zKTSblCUmhJluRS 4wNTBpbjtm j857TcNzRJC8VFPdwBRbK0 TslT7yAuJwPMPtUCJrR8Gf pUQvPLfmX487IUswOpS2RQ KlneJzL4Up BZMbpBhuRvH0f4Y3Ae4KZZ 2roME1O5DpVdd2VRTayEer YR4faRWsHKmpZl4skXhffL okUQ7bWOXq qmtlIUYprL7aWYQqhWQfwF snRU5sTQUoxdgoq147PrTk GMB3LZRxzTOjG9PzuE3vLe AjMDAwMDAw T7RxlQZqENwrA291QSjaLw S3EPFkpmPmN0VhJUGfhXak KqJ1t6V4Lt3EpmXudXhivs J9V8CpTqgi dHI+NZ29JNJcLU60dTYnsO Uhg0flxRb3WoWlRMDqJYV4 cAckVRizw4PdTSUoZ30kpW Xme7C1BMYa dFhamQRzUoWzyOQ4uZ3jNF taodeqb9hhalwoYszuc5ve nk31wD11Y80eFBqgMWVqNK IzMCUiIHZh jSyutp2aaB9tNq0+PGNvbC K0nSR1dH2cWgJcCcM1BYoq K408WaXdrZTlWsgbk7jis8 qsaGt8PhKp RFMfzpJzwRzsDBI6k3PySq 90R86hSJeaOBVdCFKlIAOy ICRpdGlvfc4mvK3gWu1+PC 7xk9qrjq01 aX78bBT+MPLzIOO7cXwuXE yxYXJizR0zFZfuYrA3HJNj VcPprH22bBUrSSsuJs4qhD jlhCybVR5g THTqjzocc877JiTyv7xwRF KubXWxKGcoQRU7K10qw9U4 MVGuYVDgJPH2pHX1dT6erR lnbjogbGVm dDsgdmVydGljYWwtYWxpZ2 96UUIfgEhrBbXqzVNrP2oh rfZEBA4vWjiyoZP+PHRkIH G0uOcwNLbb HCPndK1qZFXkZ5b7CaLnCt G6SKmkN3HbjqO0OHWiwZLp URTbeZMFhH9mjwfkj9znux ogIzAwMDAw YJd5GBq3BUZnjWqsOqYoBX J8ElD5AAK8kLRddJ3zhOjh falfmM3vKyx+RklOOjwvdG Q+PHRkIHN0 dEbfMVlqMAGktM1kROUxH3 s4CpTsNsR5AZbrJ5ThrpB1 TNEroZLjFADowYQHvQ8pqk ysc1zdwsco KkFkRQKjVMo7XNz1YTRqrY tdZuOvJUI0GjP4DXT5sXZq jY7zoJczfogalL2vBoq+TV JOOjwvdGQ+ ZHLsFAP3wPawFLohJDLsrS 2hGSHvO2l7UmEaXxV4NXho O6LzijX7HIOdmMWfPCXplT EDaJ1lwsuh l3fflizuQjBuOCYpKQt7HG q8WMSmiOgtEfSaHCC3MlJ8 WJB5rGFriU3ayCvoyfavfO 9wOyc+UGF5 KMC2AL08WF49E8ZaQqhloH FibGU+PHRhYmxlIHdpZHRo ESykXUUeGxEkpAvvUK2qLa 9yZGVyLWNv bGxhcHNl (more content not included)... Normal [facility] IntraOperative Documentson 0 12-20-2022 IntraOperative Documents [id number]#1. 00CD:127 Normal [facility] Operative Reporton 3 Operative Report Patient: CECI SPEARS Age: 67 years Sex: Female : 1955 Associated Diagnoses: None Author: [facility] Margot, [facility] Post[facility] Information Date/ Time: 12/13/2022 09:00:00 [...] Using maximal sterile barrier technique per current [facility] guidelines including hand hygeine, Guidance [...] surgeon request for post-op pain management. Normal [facility] Comment on above: Result Comment: Elec tronically Signed By: MD Margot, Andrew Browne\.br\Date and Time Signed: 12/19/22 13:04 EDT IntraOperative Documentson 0 12-17-2022 IntraOperative Documents [id number]#1. 00CD:127 Normal [facility] Auto Diffon 12-14-2022 Basophils/100 WBC (Bld) 0.6 % Normal 0.0-2.0 [facility] Comment on above: Order Comment: Order Added by Discern Expert. Performed By: #### 2 [id number], 0206832, 5160818, 16095275, 4162697, 9121128 ####[facility] [address] [place] [address] Basophils/Leukocyte s Auto (Bld) [Pure # fraction] 0.0 E9/L Normal 0.0-0.2 [facility] Comment on above: Order Comment: Order Added by Discern Expert. Performed By: #### 2 428697, 6756348, 3136214, 52705661, 3745586, 6010221 ####[facility] [address] [place] [address] Eosinophils/100 WBC (Bld) 1.0 % Normal 0.0-8.0 [facility] Comment on above: Order Comment: Order Added by Discern Expert. Performed By: #### 2 066212, 3380659, 7808961, 58781158, 6174907, 6582959 ####[facility] [address] Eosinophils/Leukocy julia Auto (Bld) [Pure # fraction] 0.1 E9/L Normal 0.0-0.5 [facility] Comment on above: Order Comment: Order Added by Discern Expert. Performed By: #### 2 467328, 2355365, 0975629, 13732779, 2557654, 1948066 ####[address] [address] Lymphocytes/100 WBC (Bld) 11.2 % Low 14.0-50.0 [facility] Comment on above: Order Comment: Order Added by Discern Expert. Performed By: #### 2 478127, 8476920, 9781985, 08362269, 9367770, 8853460 ####[address] [address] Lymphocytes/Leukocy julia Auto (Bld) [Pure # fraction] 0.7 E9/L Low 1.0-4.0 [facility] Comment on above: Order Comment: Order Added by Discern Expert. Performed By: #### 2 348120, 4239053, 7218183, 32981504, 0401535, 5598159 ####[address] [address] Monocytes/100 WBC (Bld) 7.7 % Normal 4.0-14.0 [facility] Comment on above: Order Comment: Order Added by Discern Expert. Performed By: #### 2 631489, 1698355, 4577619, 48949831, 3418665, 9392226 ####[address] [place] [address] Monocytes/Leukocyte s Auto (Bld) [Pure # fraction] 0.5 E9/L Normal 0.2-1.0 [facility] Comment on above: Order Comment: Order Added by Discern Expert. Performed By: #### 2 264117, 6017661, 5687806, 55038759, 1198626, 9122626 ####[address] [address] Neutrophils/100 WBC (Bld) 79.5 % High 36.0-75.0 [facility] Comment on above: Order Comment: Order Added by Discern Expert. Performed By: #### 2 908342, 1326923, 6137285, 96182825, 5994926, 7806054 ####[facility] [address] [place] [address] Neutrophils/Leukocy julia Auto (Bld) [Pure # fraction] 5.1 E9/L Normal 2.0-7.5 [facility] Comment on above: Order Comment: Order Added by Discern Expert. Performed By: #### 2 046452, 7439447, 4333775, 06870070, 1840890, 1765875 ####[facility] [address] [place] [address] BUNon 12-14-2022 Urea nitrogen [Mass/Vol] 12 mg/dL Normal 5-21 [facility] Comment on above: Performed By: #### 2 145633, 5995295, 9029322, 89475043, 1263850, 0463224 ####[facility] [address] [place] [address] CBC w/ Auto Diffon Erythrocyte distribution width (RBC) [Ratio] 14.7 % High 10.9-14.2 [facility] Comment on above: Performed By: #### 2 590917, 3104882, 9531641, 25435974, 6414586, 0490826 #### [facility] [address] [place] [address] Hematocrit (Bld) [Volume fraction] 42.3 % Normal 34.0-46.0 [facility] Comment on above: Performed By: #### 2 117110, 4081805, 9325956, 95691479, 7443792, 4474994 #### [facility] [address] [place] [address] Hemoglobin (Bld) [Mass/Vol] 13.4 g/dL Normal 12.0-16.0 [facility] Comment on above: Performed By: #### 2 491964, 9629099, 0478949, 75620186, 4456830, 2663639 #### [facility] [address] [place] [address] MCH (RBC) [Entitic mass] 28.1 pg Normal 27.0-34.0 [facility] Comment on above: Performed By: #### 2 055650, 5509263, 7440549, 73196597, 2548486, 1186447 #### [facility] [address] [place] [address] MCHC (RBC) [Mass/Vol] 31.8 g/dL Normal 31.4-36.0 [facility] Comment on above: Performed By: #### 2 808077, 4052228, 6596611, 22711621, 9060449, 2165100 #### [facility] [address] [place] [address] MCV (RBC) [Entitic vol] 88.5 fL Normal 80.0-100.0 [facility] Comment on above: Performed By: #### 2 296510, 7175538, 4278412, 01144536, 0360366, 5485488 #### [facility] [address] [place] [address] Platelet mean volume (Bld) [Entitic vol] 7.3 fL Normal 6.4-10.8 [facility] Comment on above: Performed By: #### 2 945269, 3183649, 4333769, 43537888, 7773010, 6105959 #### [facility] [address] [place] [address] Platelets (Bld) [#/Vol] 193.0 E9/L Normal 150.0-500.0 [facility] Comment on above: Performed By: #### 2 914806, 8345722, 9262713, 63952154, 2730126, 7394870 #### [facility] [address] [place] [address] RBC (Bld) [#/Vol] 4.8 E12/L Normal 4.3-5.9 [facility] Comment on above: Performed By: #### 2 862656, 6578824, 1576715, 86512803, 2262173, 6649509 #### [facility] [address] [place] [address] WBC corrected for nucl RBC Auto (Bld) [#/Vol] 6.4 E9/L Normal 4.0-11.0 [facility] Comment on above: Performed By: #### 2 395925, 5890102, 4223822, 14381122, 5347899, 4439063 #### [facility] [address] [place] [address] Consent for Anesthesiaon Consent for Anesthesia [id number]#1. 00CD:127 Normal [facility] Creatinineon 12-14-2022 Creatinine [Mass/Vol] 0.7 mg/dL Normal 0.5-1.3 [facility] Comment on above: Performed By: #### 2 786806, 5783585, 0186102, 05560458, 4884339, 8314512 ####[facility] [address] [place] [address] Discharge Instructionson Discharge Instructions [id number]#1. 00CD:127 Normal [facility] Discharge Note-Nursingon Discharge Note-Nursing CECI SPEARS :1955 [...] On Post-op day 10 Pharmacy Information [facility] Discharge Instructions Discharge Instructions New Follow Up Appointments after Discharge Follow Up with Gwyn Garcia When: 01/12/2023 09:30 AM EDT Comments: Keep scheduled appointment Where: [address] [place] [address]- Business (1) Follow Up with CAMILLE WILLIAMSON When: Comments: No PCP appointment required for surgery patient. Please follow up with ORTHO. Thank you! Where: [address] [place] [address]- [employer] (1) Medications What How Much When Why Instructions Next Dose Unchanged acetaminophen-oxycodon e (Percocet 5 mg-325 mg oral tablet) See instructions Localized osteoarthritis of left knee Take one to two every 4 hours as needed for pain from knee surgery Pickup at [facility]/pharmacy #7710 NEEDED FOR PAIN, AFTER 1215 PM ON 12/14 Unchanged aspirin (aspirin 325 mg Tab) 1 Tablets By Mouth Every day Duration: 30 Days Start the day after knee surgery Pickup at [facility]/pharmacy #6177 12/15 @ 9 AM Unchanged docusate (Colace 100 mg Cap) 1 Capsules By Mouth 2 times a day Pickup at [facility]/pharmacy #6177 12/14 @ 9 PM Unchanged levothyroxine (levothyroxine 137 mcg (0.137 mg) Tab) 1 Tablets By Mouth Every day 12/15 @ 7 AM Unchanged metoprolol (metoprolol 25 mg ER Tab) 1 Tablets By Mouth Every day 12/15 @ 9 AM [id number] [address] [place], [place] [id number] [phone] What How Much When Comments Stop Taking [...] VISCOSITY HIGH [6194-1-010] 12/13/2022, Unknown - RODDY: {01}[id number]{10} [id number] CEMENT SIMPLEX PLAIN (more content not included)... Normal [facility] IntraOperative Documentson 0 12-14-2022 IntraOperative Documents [id number]#1. 00CD:127 Normal [facility] Lyteson 12-14-2022 Anion gap [Moles/Vol] 10 mmol/L Normal 6-16 [facility] Comment on above: Performed By: #### 2 608682, 6241302, 6740889, 79982519, 0449555, 2507954 ####[facility] [address] [place] [address] Chloride [Moles/Vol] 101 mmol/L Normal 101-111 [facility] Comment on above: Performed By: #### 2 257997, 5321749, 1542893, 35951771, 4477907, 5709895 ####[facility] [address] [place] [address] CO2 [Moles/Vol] 27 mmol/L Normal 21-31 [facility] Comment on above: Performed By: #### 2 500665, 8337558, 6778405, 47096080, 7159265, 0157511 ####[facility] [address] [place] [address] Potassium [Moles/Vol] 3.5 mmol/L Normal 3.5-5.3 [facility] Comment on above: Performed By: #### 2 269057, 2935005, 4734821, 47925975, 3460396, 8655218 ####[facility] [address] [place] [address] Sodium [Moles/Vol] 134 mmol/L Low 135-145 [facility] Comment on above: Performed By: #### 2 939151, 3716898, 9085267, 95210398, 8330971, 9980919 ####[facility] [address] [place] [address] Patient Education - Texton 0 12-14-2022 Patient Education - Text [facility] DISCHARGE INSTRUCTIONS TOTAL KNEE ARTHROPLASTY [...] will continue at home, possible with the faculty research assistant of Home Health Physical Therapy or [...] too soon, 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 It is therefore advised not to drive until after your first office visit following surgery FOLLOW-UP OFFICE VISIT: __ Gwyn Garcia, DO [facility] [address] [place] [address] Reviewed: 12-04 aspirin (oral) ( pir in) Arthritis Pain, Aspi-Cor, Aspir-Low, Ivy Plus, Durlaza, Ecotrin, Miniprin, Vazalore What is the most important information I should know about aspirin? Aspirin can cause Mark's syndrome, a serious and sometimes fatal condition in children. What is aspirin? Aspirin is a salicylate (vf-BPT-iy-ate) that is used to treat pain, and [...] planned surger (more content not included)... Normal [facility] Preoperative Documentson Preoperative Documents [id number]#1. 00CD:127 Normal [facility] Progress Note-Physicianon Progress Note-Physician Patient: CECI SPEARS [...] All Problems Knee osteoarthritis / SNOMED CT 205984783 / Confirmed Hypothyroid / SNOMED CT 05937800 / Confirmed At risk for falls / SNOMED CT 348754225 / Possible Problem added when Risk for [...] d/c home today with 360 rehab.. Normal [facility] Comment on above: Result Comment: Elec tronically Signed By: Gwyn Garcia DO\.br\Date and Time Signed: 12/14/22 06:58 EDT eGFRon 12-14-2022 GFR/1.73 sq M.predicted among blacks MDRD (S/P/Bld) [Vol rate/Area] mL/min/{1.73_m2} Normal >=59 [facility] Comment on above: Order Comment: Order added by Discern Expert. Result Comment: eGFR is race adjusted. AA=. Performed By: #### 2 521322, 1725216, 0895682, 68540712, 0559938, 8961902 ####[facility] [address] [place] [address] GFR/1.73 sq M.predicted among non-blacks MDRD (S/P/Bld) [Vol rate/Area] mL/min/{1.73_m2} Normal >=59 [facility] Comment on above: Order Comment: Order added by Discern Expert. Result Comment: Electrician Technician taylor kidney disease could be indicated at eGFR's of less than 60 mL/min/1.73m2. Kidney failure is indicated at less than 15 mL/min/1.73m2. Performed By: #### 2 512091, 5361656, 2425211, 25048609, 3743754, 1978438 ####[facility] [address] [place] [address] ABO/Rhon 12-13-2022 ABO/Rh Positive Invalid Interpretation Code [facility] Comment on above: Performed By: #### 2 254972, 5082077, 82665973, 8965584, 7799432, 5147161 #### [facility] [address] [place] [address] ABO/Rh History Checkon 12-13 ABO/Rh History Check Verified Hx Blood Type Normal [facility] Comment on above: Performed By: #### 2 556347, 4571540, 12411801, 4966564, 1927414, 0383805 #### [facility] [address] [place] [address] ABSCon 12-13-2022 ABSC Gel Interp Negative Normal [facility] Comment on above: Performed By: #### 2 399639, 4159420, 28281769, 1112341, 5310806, 4115199 #### [facility] [address] [place] [address] Blood Bank ID#on 12-13-2022 BBID# [id number] Invalid Interpretation Code [facility] Comment on above: Performed By: #### 2 897800, 0039790, 83664781, 4911098, 5853791, 3933643 #### [facility] [address] [place] [address] Consent for Treatmenton 11-27 Consent for Treatment [id number]#1.0 0CD:127 Normal [facility] H&P Updateon 12-13-2022 H&P Update [id number]#1.0 0CD:127 Normal [facility] Interdisciplinary Note - Arabella n 12-13-2022 Interdisciplinary Note - OT OT six clicks score: 18/24=home with ortho 360. Pt completes ADL functional transfers mod A x2 at time of eval with slow pacing. Pt has necessary DME for safety. Plan is to return tomorrow to review full body dressing prior to discharge home. Normal [facility] Main OR Intraoperative Recor don 12-13-2022 Main OR Intraoperative Record IntraOp Document Type FT Summary Primary Physician: Gwyn Garcia DO Finalized Date/Time: 12/13/22 11:05:10 Pt. Name: CECI SPEARS /Sex: 1955 Female Med Rec #: [id number] Physician: Gwyn Garcia DO Financial #: [id number] Pt. Type: A Room/Bed: [place] [address] Admit/Disch: 12/13/22 06:46:46 - Institution: Case Times FT Entry 1 Patient Times In Room 12/13/22 09:31:00 Out Room 12/13/22 11:02:00 Procedure Times Start 12/13/22 10:05:00 Stop 12/13/22 10:54:00 Anesthesia Times Start 12/13/22 09:31:00 Stop 12/13/22 11:02:00 Block Timeout w12/13/22 09:25:00 Anesthesia Last Modified By: Ranjit BAHENA, Linda Calderon 12/13/22 11:01:59 General Comments: BLOCK DONE BY Tammy LONDONO CRNA AT [phone], ASSISTED BY Deena ACOSTA RN; HR= 65, O2= 99%; SPINAL DONE BY Tammy LONDONO CRNA AT 0942 -Clarence LOBATO RN Case Attendance FT Entry 1 Entry 2 Entry 3 Case Attendee Jackie ROSENBERG, Gwyn Herrera DO FOUNTAIN OPERATOR, Magui Powell Role Performed PNEUMATIC SYSTEMS OPERATOR Surgeon - Primary FOUNTAIN OPERATOR/SA Time In 12/13/22 09:31:00 12/13/22 09:31:00 [...] BAHENA, Dennis Irwin, Luci Calderon Role Performed Senior Javascript Engineer - Primary Scrub - Primary Staff - [...] Thompson CST, Ferrer RN, Linda Calderon, Dennis Goff R, Luci Catalan M, Violette BAHENA, Erick Chester Time Out Complete [...] thermal o (more content not included)... Normal [id number]\.br\ Usage Data FT \.br\ Implant Site Knee L Knee L Knee L\.br\ Implant Site Comment \.br\ Quantity 1 1 1\.br\ Implant/Explant Date \.br\ Implanted By Gwyn Garcia DO, DO, Michael T Powers DO, Michael T\.br\ Explant Reason \.br\ Biological Implants \.br\ Biological Source \.br\ Donor Number \.br\ MR Classification Unknown Unknown\.br\ Temperature \.br\ Reconstitution \.br\ Method \.br\ Outcomes Met? Yes Yes Yes\.br\ Corn Picker Model \.br\ Number \.br\ Last Modified By: [...] CEMENTED AOX\.br\ Serial Number \.br\ Lot Number [id number]\.br\ Load Number \.br\ Corn Picker DEPUY DEPUY DEPUY\.br\ Catalog ?# [id number] [...] Gwyn Garcia DO, Gwyn Garcia DO, Gwyn T\.br\ Explant Reason \.br\ Biological Implants \.br\ Biological Source \.br\ Donor Number \.br\ MR Classification \.br\ Temperature \.br\ Reconstitution \.br\ Method \.br\ Outcomes Met? Yes Yes Yes\.br\ Corn Picker Model \.br\ Number \.br\ Last Modified By: [...] AIR Quantity 1\.br\ Aid WARMING SYSTEM UNIT\.br\ Fluid/Livingston Unit Mistral warming system Setting 43/HIGH\.br\ Body [...] By: \.br\ Linda Lobato RN 12/13/22 11:05 [facility] Main OR PACU I Recordon 11-27 Main OR PACU I Record PACU Phase I Document Type FT Summary Primary Physician: Gwyn Garcia DO Finalized Date/Time: 12/13/22 13:11:19 Pt. Name: CECI SPEARS/Sex: 1955 Female Med Rec #: [id number] Physician: Gwyn Garcia DO Financial #: [id number] Pt. Type: I Room/Bed: [place] [address] Admit/Disch: 12/13/22 06:46:46 - Institution: Case Times [...] By: Rachel Shaver I 12/13/22 13:11 Normal [facility] Main OR Preoperative Recordo n 12-13-2022 Main OR Preoperative Record PreOp Document Type FT Summary Primary Physician: Gwyn Garcia DO Finalized Date/Time: 12/13/22 10:22:35 Pt. Name: CECI SPEARS/Sex: 1955 Female Med Rec #: [id number] Physician: Gwyn Garcia DO Financial #: [id number] Pt. Type: Room/Bed: [place] [address] Admit/Disch: 12/13/22 06:46:46 - Institution: Case Times [...] By: Linda Lobato RN 12/13/22 10:22 Normal [facility] Monitor Recordon 12-13-2022 Monitor Record [id number]#1. 00CD:127 Normal [facility] Monitor Record [id number]#1. 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 The Trevett Simplex cement was mixed. All components were [...] patient's condition satisfactory Wesley Conte Dictated: 12/13/2022 [id number] Transcribed: 12/13/2022 cc:Camille Williamson M.D. [facility] Comment on above: Result Comment: Elec [...] Room in stable and satisfactory condition.. Normal [facility] Comment on above: Result Comment: Elec tronically Signed By: Gwyn Garcia DO\.br\Date and Time Signed: 12/13/22 11:01 EDT Progress Note-Physicianon Progress Note-Physician Patient: CECI SPEARS Age: 67 years Sex: Female : 1955 Associated Diagnoses: None Author: MD Margot, Andrew Browne Postoperative Information Postoperative disposition: Postoperative disposition: To PACU. Optimetrix number: Optimetrix number [id number]. Anesthetic utilized: General. Health Status Allergies: Allergic [...] when meets criteria ( To home ). [facility] Comment on above: Result Comment: Elec [...] # 20 cap(s), Refills(s) 0, Pharmacy: [facility]/pharmacy #[id number], 160, cm, 08/09/22 5:49:00 EST, Height/Length Dosing, 114.3, kg, 08/09/22 5:49:00 EST, Weight Dosing Colace 100 mg Cap: 100 mg = 1 cap(s), Oral, BID, # 20 cap(s), Refills(s) 0, Pharmacy: [facility]/pharmacy #6177, 160, cm, 08/09/22 5:49:00 EST, Height/Length Dosing, 114.3, kg, 08/09/22 5:49:00 EST, Weight Dosing Keflex 500 mg Cap: 500 mg = 1 cap(s), Oral, QID, Start the day after knee surgery, X 5 day(s), # 20 cap(s), Refills(s) 0, Pharmacy: [facility]/pharmacy #6177, 160, cm, 08/09/22 5:49:00 EST, Height/Length Dosing, 114.3, kg, 08/09/22 5:49:00 EST, Weight Dosing Percocet 5 mg-325 mg oral tablet: See Instructions, 50 tab(s), Refill(s) 0, Take one to two every 4 hours as needed for pain from knee surgery, [facility]/pharmacy #6177, 160, cm, 08/09/22 5:49:00 EST, Height/Length Dosing, 114.3, kg, 08/09/22 5:49:00 EST, Weight Dosing Percocet 5 mg-325 mg oral tablet: See Instructions, 50 tab(s), Refill(s) 0, take one to two every 4 hours as needed for knee replacement pain, [facility]/pharmacy #6177, 160, cm, 08/09/22 5:49:00 EST, Height/Length Dosing, 114.3, kg, 08/09/22 5:49:00 EST, Weight Dosing aspirin 325 mg Tab: 325 mg = 1 tab(s), Oral, Daily, Start the day after knee surgery, X 30 day(s), # 30 tab(s), Refills(s) 0, Pharmacy: [facility]/pharmacy #6177, 160, cm, 08/09/22 5:49:00 EST, Height/Length Dosing, 114.3, kg, 08/09/22 5:49:00 EST, Weight Dosing Documented Medications Documented levothyroxine 137 mcg (0.137 mg) Tab: 137 mcg = 1 tab(s), Oral, Daily, Refills(s) 0, Thyroid metoprolol 25 mg ER Tab: 25 mg = 1 tab(s), Oral, Daily, High blood pressure Problem list: All Problems Hypothyroid / SNOMED CT 24611206 / Confirmed Knee osteoarthritis / SNOMED [place] [address] (more content not included)... Normal [facility] Comment on above: Result Comment: Elec tronically Signed By: MD Margot, Andrew F\.br\Date and Time Signed: 12/13/22 15:00 EDT Urinalysison 12-13-2022 Bacteria LM Ql (Urine sed) TRACE Normal Trace [facility] Comment on above: Performed By: #### 1 [id number] #### [facility] [address] [place] [address] Bilirubin Ql (U) Negative Normal Negative [facility] Comment on above: Performed By: #### 1 2123106 #### [facility] [address] [place] [address] Clarity (U) CLEAR Normal Clear [facility] Comment on above: Performed By: #### 1 1329220 #### [facility] [address] [place] [address] Color (U) YELLOW Normal Yellow [facility] Comment on above: Performed By: #### 1 [id number] #### [facility] [address] [place] [address] Epithelial cells.squamous LM.HPF (Urine sed) [#/Area] 0-2 Normal 0-2 [facility] Comment on above: Performed By: #### 1 9278307 #### [facility] [address] [place] [address] Glucose Test strip (U) [Mass/Vol] Negative Normal Negative [facility] Comment on above: Performed By: #### 1 9165325 #### [facility] [address] [place] [address] Hemoglobin Ql (U) Negative Normal Negative [facility] Comment on above: Performed By: #### 1 2499631 #### [facility] [address] [place] [address] Ketones (U) [Mass/Vol] Negative Normal Negative [facility] Comment on above: Performed By: #### 1 8921023 #### [facility] [address] [place] [address] [place].plasma/Lith ium.RBC (Bld) [Mass ratio] 0-3 Normal 0-3 [facility] Comment on above: Performed By: #### 1 0170448 #### [facility] [address] [place] [address] Mucus Ql (Urine sed) TRACE Normal [facility] Comment on above: Performed By: #### 1 1612888 #### [facility] [address] [place] [address] Nitrite Ql (U) Negative Normal Negative [facility] Comment on above: Performed By: #### 1 9355859 #### [facility] [address] [place] [address] pH (U) 6.0 [pH] Invalid Interpretation Code 5.0-9.0 [facility] Comment on above: Performed By: #### 1 9405628 #### [facility] [address] [place] [address] Protein (U) [Mass/Vol] Negative Normal Negative [facility] Comment on above: Performed By: #### 1 6981584 #### [facility] [address] [place] [address] Specific gravity (U) [Rel density] 1.020 Invalid Interpretation Code 1.005-1.030 [facility] Comment on above: Performed By: #### 1 0679394 #### [facility] [address] [place] [address] Type of Urine collection method Clean Catch Normal [facility] Comment on above: Performed By: #### 1 7546490 #### [facility] [address] [place] [address] Urobilinogen Qn (U) 0.2 {Tyson'U}/dL Normal 0.0-1.0 [facility] Comment on above: Performed By: #### 1 3273913 #### [facility] [address] [place] [address] WBC Auto Ql (U) 1+ Abnormal Negative [facility] Comment on above: Performed By: #### 1 2877720 #### [facility] [address] [place] [id number] WBC LM.HPF (Urine sed) [#/Area] 6-15 Abnormal 0-5 [facility] Comment on above: Performed By: #### 1 5393055 #### [facility] [address] [place] [address] XR Knee 1 or 2 Views Lefton [...] Garcia FINAL REPORT Dictated: 12/13/2022 1:56 pm Signer Heath GASTON Signed (Electronic Signature): 12/13/2022 1:56 pm Signed by: Heath Quiros MD Transcribed by: [place] Technologist: JACKIE Technical Comments Radiation Dose: Ka,r in mGy = na DAP = na Normal [facility] Inpatient Patient Summaryon 12-08-2022 Inpatient Patient Summary [address] [address] [facility] Clinical Discharge Instructions PERSON INFORMATION Name: CECI SPEARS [facility]#:[id number] PHYSICIANS Admitting Physician: Gwyn Garcia DO Attending Physician: Gwyn Garcia DO PCP: CAMILLE WILLIAMSON MD Discharge Diagnosis: Localized osteoarthritis of left knee Comment: PATIENT EDUCATION INFORMATION Instructions: Cam - Total Knee Arthroplasty (CUSTOM) Medication Leaflets: Follow up: With: Address: When: Gwyn Cam [address] [place], [place] [address] [facility] () Comments: Keep scheduled appointment Type Location Start [facility] Surgery [facility] 12/13/2022 10:00 AM 12/13/2022 11:15 [...] Tablets By Mouth every day. Comment: Normal [facility] Outpatient Surgery Discharge Instructionon 12-08-2022 Outpatient Surgery Discharge Instruction [address] [address] Patient Discharge Instructions PERSON INFORMATION Name: CECI [...] Follow up: With: Address: When: Gwyn Garcia [address] [place], [place] [phone] Business (1) Comments: Keep scheduled appointment Type Location Start [facility] Surgery [facility] 12/13/2022 10:00 AM 12/13/2022 11:15 [...] to serve you. Thank you for choosing [facility] HERE ARE THE MEDICATION CHANGES THAT OCCURRED [...] Mouth every day. PATIENT EDUCATION INFORMATION Instructions: [place], [place] [facility] DISCHARGE INSTRUCTIONS TOTAL KNEE [...] or eran (more content not included)... Normal [facility] Outside Labson 12-07-2022 Outside Labs [id number]#1. 00CD:127 [facility] Consent for Procedure/Surger yon 12-06-2022 Consent for Procedure/Surgery [id number]#1. 00CD:127 Normal [facility] Progress Note-Physicianon Progress Note-Physician Patient: CECI SPEARS [...] # 20 cap(s), Refills(s) 0, Pharmacy: [facility]/pharmacy #[id number], 160, cm, 08/09/22 5:49:00 EST, Height/Length Dosing, 114.3, kg, 08/09/22 5:49:00 EST, Weight Dosing Keflex 500 mg Cap: 500 mg = 1 cap(s), Oral, QID, Start the day after knee replacement surgery, X 5 day(s), # 20 cap(s), Refills(s) 0, [id number] 160, cm, 08/09/22 5:49:00 EST, Height/Length Dosing, 114.3, kg, 08/09/22 5:49:00 EST, Weight Dosing Percocet 5 mg-325 mg oral tablet: See Instructions, 50 tab(s), Refill(s) 0, take one to two every 4 hours as needed for knee replacement pain, [facility]/pharmacy #[id number], 160, cm, 08/09/22 5:49:00 EST, Height/Length Dosing, 114.3, kg, 08/09/22 5:49:00 EST, Weight Dosing aspirin 325 mg Tab: 325 mg = 1 tab(s), Oral, Daily, Start the day after knee replacement surgery, X 30 day(s), # 30 tab(s), Refills(s) 0, [id number], 160, cm, 08/09/22 5:49:00 EST, [...] list: All Problems Hypothyroid / SNOMED CT 81669792 / Confirmed Knee osteoarthritis / SNOMED CT 355787028 / Confirmed Resolved: History of breast cancer / SNOMED CT 8882688155 Histories Past Medical History: No active or resolved past medical history items have been selected or recorded. Family History: (more content not included)... Normal [facility] Comment on above: Result Comment: Elec tronically Signed By: Michoacano Ambrocio Jr, DO\.param\Date and Time Signed: 09/05/22 13:16 EST Progress Note-Physician Patient: CECI SPEARS Age: 67 years Sex: Female : 1955 Associated Diagnoses: None Author: Michoacano Ambrocio Jr, DO Postoperative Information Post Operative Note: Post Anesthesia Care Unit. Anesthetic utilized: General. Health Status Allergies: Allergic Reactions (Selected) No Known Medication Allergies Problem list: All Problems Hypothyroid / SNOMED CT 95677933 / Confirmed Knee osteoarthritis / SNOMED CT 193760553 / Confirmed Resolved: History of breast cancer / SNOMED CT 5699843001 Physical Examination Vital Signs 08/30/2022 14:00 EST [...] Ap (more content not included)... Normal [facility] Comment on above: Result Comment: Elec tronically Signed By: Cristóbal Gunn DO, Michoacano Muhammad\.br\Date and Time Signed: 09/05/22 13:15 EST Coding Summary.on 09-02-2022 Coding Summary. CD:[id number] Gh 0bWw+PGhlYWQ+ZA7ONRKzS 34qkKSkaG6WR6xXRC6QVWC RNDFLVP4QVC3ylEW6RIuoQ 2VybiAv LigcrESzLT68BYh6BJZ2sX toSVavwB1njSOvT7x0McWs OW46yS48XApsGDVkHiA2Dn ZpbjsgbWFy I4xgObNtvZElDoc+PHRhYm xlIHdpZHRoPScxMDAlJyBz iRbdLX6jRd5fIYDpTIPvjX xhcHNlOiBj i7odJGJkDMboPR1vyUwaI8 CvjHU3RPUdw1f5Mt71xTM+ TSAeCDJ9hVxzRXnck071Qa Vlm9rxDOB4 kEKdLBygIVS2Q88cj9Z2CV MnSMWaIVJ1hAD3gL0yuZxb mqmrD4RnzQBeWvR2EXN0bY SdtE4nrTxh ltstxC7pSmu+A74KXL3TKA ZGXX5JCnz8D1VmZuyyhVR+ PZ48ZKJmYY11iHZmfCNnh0 wkeOn5LcMk EBEuFEI7pKfiHMpxg9KuLV YoJ94yhYZqc0C6KPMibQzs cFDaXbHrgGF8kA1tENjxmc cjd7xmgiuk Mfbjj2iiqv09mT70I07xSU hrTAVrGUD4VJWhENWamFbx il0skW9wGc3+WKqar7gnu6 kleKv1ZeJf FRYzvyBokRtfBNC8p7BbVx 14Z1UqgSwdg9LcNas3kp62 mRJts1J4aBO4NRweQBShkE 6aUYjcEaV5 IXAoPfGpvD82wDNcFMbyBp 1pvHovxWqyEG3lHYZitlrd EMMqvT6zERUqiXPwgMgbNF 4wNTBpbjtm a095FjTaCBR5JZQsaGFcN4 ImwW9lCeCjYTYyNODxJ5Kf oGPjBRahT481SIoqLeI4GC TzkqRxW8Oh RCNrnFvwZfV5h4K1Mn4Uu8 VjuvdiYJM2CYpoCHUhNcL3 QgNxQuO4R6UjClk8KYSqnT nzTU7hD8Or RFGyanhvapvjwTH6QUIzYA KpcJ95eARhEZlzYd4up2G7 n284JEQiWEWpzZ38Qo0fpS ogMTBwdCBU vD4sjkqne9jiqzqrTrBcSK IrSQl7MCi5IVEyhXjhNjBo GNX8XyW3PZA7aKZzsD2beR mxrhjfnZ6b Oyc+K27jhO6sJLV2DUU7lt biZQQhiyWqYI20YA56H6Bj PjwvdGFibGU+PGRpdiBzdH vpWQ6fKaCx q0yad6MeFGvjQ5EuPJWzYA nkFrx3RLQrCOT2wHJ9sY1s KGBlXQaea0J4mYJ3O3Lyfh Xcoy8jw5mz LWRwWLbxI63tfHZpi3U0II QnaLB1SZWkgWwmGoZhuO47 Oyc+KCUstVbku7IpPkshm3 ygd4lgnCb1 TvAlXQOoosUkcFquKGC7t1 SuDf86X56xYVpzMGYfRMCl HKZcASQgbUnppj7tiV6fYk 8+PGNvbCB3 bQM4gA9kHLEvGmO5DMmaG3 50LdZxmMZhOoaxx5oab3rz hPa8AeByRPZjjmPdkFgxKH I8d4ArYg83 I86eEPsuZDUdNSMwHJKrFJ AntRvioj8wkQ7kSv7+PC9j y6vdzd59pQ06oFA+PHRkIH J9mAkpLWpr CVYflR8nXXlhBuA5ETVpUt UgvA83aANlHKglFh3yqRsw mZiaRG7uVHVvxalfd866Hg Mxc3axXVEd zKLvWGroILV1Q09kt7B2IB StNNPiTJN8pJC8uH0atYod bjogbGVmdDsgdmVydGljYW ubQBgmU435 IHRvcDsnPlBhdGllbnQgTm FdUTl0Q2PzJgb8LHJagVvz ZF4leQRjNNgjBi4uiAjbtY yiPQ8pFZBp kkizw535SnBll5zrBEKnyS DoYKdyDLW8O12cd7A1AWCz UMGaESF6pUQ0pM5ffFhiln ogbGVmdDsg oqZmgEwbDDuiNQmeA283AG RvcDsnPkJpcnRoIERhdGU6 WG39YU75sMCgn1P2dMW9W4 BhZGRpbmct sduowAR9CSJtVYUblQ01Nj 1aeIkrOb4zKHIaMOC4NXJk mHZjH7YpiQ5xQmFcPADmZG QnF5LarNZe QNpvC582DEyvZkZ2RRUibx AhS3MaZYYbjXioUuQ6l7U8 Tk2BG3C3OZ83HZ61vNZhv6 Y0qIR3Y8Jh DNBgmrmrtcaqxTI7UBFeWH WihW92Ln7xxNqpNx0aFTGt HRO4GFYgmPKyH7EugX1vIj AjMDAwMDAw Y3NcqZJqTAitF166FFyjAb Z5KTAaidIxV7SbAZUbuLcv DlZ0u3J5Pa7RWEw4FF84DB 72sZKly7Z4 aCO7Q0SdIOXkggochhouhZ K9SXSpCZLtyO43Mg0krKbx Fs2pDVZpUBJ3QXMppHGpE5 JpuN1xNqSp CRSmMJMqQ4YilPAgJQtbV6 84GEnpVcA1EVSmqfUmR9Fh MODdbMgyQkY3j7V6Lx5SHE RoXT11WCG6 fHN0HB23IU44C2EgTyurjN FibGU+PHRhYmxlIHdpZHRo ROfyMARcErEkxTzwVF5kCs 9yZGVyLWNv nGnkpKSsHzDcu1pyLULnXR lqMX5wpVgvB9SonPO8WENa f6n0Xn71V16zT4EebFR+PG NksLA1ePE5 aB8qTmVpQwU5VHtyS851Py UuxBRsLhnvp3jlg1fxvLf0 CiR3NLVphsZwgPxnZNI9v2 BeDp01H66e IHdpZHRoPSIxNSUiIHZhbG hwlc0yxK7vPl3+PGNvbCB3 gXV0xS9kYsTdCfX8MClsF4 49InRvcCIv Rdudu8yxv0xjgQa6FmLaWJ YrllKabTikOLM0r9GoNz29 N6MxcYhsb6RbOjy6il49iE Rdb6D7xTX7 Q2ZjOTChvrdlqHFlmSyvKK 0eDKPojhmfBJGypC3vPPZh R8z0LrPoOdQ2CTwyL8Jlle R7WESqyAGq RIhgQUS0M59wi3N6ECRfFS WyAHU9iAW5nP5efDradrab bGVmdDsgdmVydGljYWwtYW kgB274KLJk yMzdKJWhgL3hXHEwqIJuiS jzBL9cJYEujthuJvVQHIFO CPJZFPSvXWGVV3JZTF19LU 67bLKhe0P6 yBS1O0LnFKOhbttxhxfeiE O4RVDuUSDsgA91kIQiWUui Hg8up2G3k211OXKqZBQozT 09Eg9nbTzf ALYfaTEDtK8ithrey4dqxj bwKnYpMQZkZCz1POj4XACc xMbzErMoZYE5KwI3NRT9fH AoxI5dxLju gtppzI7tBmv+MDYvMDUvMT g7ZOvduFG+PHInEAV7hSod CXnnPKLvsQ2eZOQeT4m3Vu SoHxJ8QXom W3VsLJQawyjaEc56pZ0zJc RwVhP8OWldJ8JpopN4KCCt xLGuFWomADI0O65vi7G9XH MwMDAwMDA7 cPA6uK8umVjfysmwuOShlQ zbodAopXakPXceSAbzQ872 FDLicPhqCuS6IZtcTBSbUO 15LH62bOJz s3J4lLM1U8NlACUyanfoun kqiKT1EGNaYKLleJ15wQJb JRirYu0ty6G3u479CIApWL HzkZ79Vx9f lMcgMNFhjUKYgQ2phftwl9 ipaxrqVuLdDDHrEYl2ILq3 CJXnsTdoTgByYCJ8ZpP8ZN D7hCQzlE2x tWiczikhnB8fQzo+RmVtYW vdYG39GP79sAVku0H5yBL1 N2KmQDVovtlygtvybVH9KF MiVGEzfY80 gPEnOYupJa2sg7V3x523GD GoUVEggD90Mz7zhVouZFLf dWDWlI0wresjh3qggjwiLz AwMDAwMDt0 VRr5PVOqaQzjYzGyCPY9Zz A2BSM0rHWgdW3tsGpxuflo lT1hLcv+SE2rERUsHQ36ED 46CC14L8Rz PjwvdGFibGU+PHRhYmxlIH dpZHRoPScxMDAlJyBzdHls MR9cYz8wISToNOYvsTctgA SbHmTkw7tf UIXgNYjjKJ1zsPwdU9AawB H2HQUyp2o8Lv50N75eK0Gs dXA+MCKfqWP6yPP0oA3vCc OyVuB7ZDdg N439UkCgcBYrJzzcc0uza7 iteAh8XzJxOYYppvVopGnd YVI6s7EaHo41M41kQQxdYR RoPSIyMCUi RTLjrUzazn7htU0hAl4+PG RuwUW0wMB1nP7zSdSyHtR4 ANkqH367JsTmfUDqRnhwK1 6sC8FfqAE+ AAFhTha5ZAZlcPbnAV2otF TxQRyfZa7xDDY3MjIpMtTr KTyfN9XoSHXscakolggwaU H2TJZgITAk mF43My9lfZkmGm1jQGDuAE R9SFZkhYNmE5IpmH0tTgWr ZCHfJPIoD4FmbUGqWSriQ4 06QPckJlH4 RFDpetHhL6TgQEVdlVadFh V0o5W4Yo8WwKdauBBjWU2d GmGwKWk3Y3BhOsc3NEQdtO krAG6leNHu IRvsCt0mxZmkfMxgFF2tQD Xhsbjln922SnPth3vbTJAn xFEvGZplBIF8N36fi9M3QG MwMDAwMDA7 cND0kH6whVcjxogjuMFaxA eqcmHosJjfHPmzMTggI472 HVPxnMtkHvYSEnq3K6KtCm m8ZPHoxWxz JZ7xxOOnYAneRn7ncEhdfY weOX6dIBBpmaedc013NkAh j0rgRVQwjUZlOWhcOWW3E6 2sh9Y0NAGt MQNmTZF9yQV3mV6nkGyehb ogbGVmdDsgdmVydGljYWwt DFuoI408KPThdSvoSu4XUl o9N3ApYvb6 GNFzdYjkJE9pxWMuVSjwCh 0liJhsaQdtXU0nNSGujyjj t024PaRaa9wkLKXgxHBtTO mtUAK1C92i j3A2FHSeNTGjYGT3fQT7xF 1hbGlnbjogbGVmdDsgdmVy uHqdMXkjKTxnY303OWWweE snPlBheWVy OjwvdGQ+TQ03ib63U4OtYv vvKja1KKTkOIL9eOL9iP0a KNYhTHolk9V9oSD8K2Qqjn Yeig2np9vw YXBz (more content not included)... Normal [facility] IntraOperative Documentson 0 09-02-2022 IntraOperative Documents [id number] 0CD:127 Normal [facility] IntraOperative Documentson 0 09-01-2022 IntraOperative Documents [id number]#1. 00CD:127 Normal [facility] Auto Diffon 08-31-2022 Basophils/100 WBC (Bld) 0.2 % Normal 0.0-2.0 [facility] Comment on above: Order Comment: Order Added by Discern Expert. Performed By: #### 2 163391, 3444060, 75298891, 6348365, 6681760, 2394301 #### [facility] [address] [place] [address] Basophils/Leukocyte s Auto (Bld) [Pure # fraction] 0.0 E9/L Normal 0.0-0.2 [facility] Comment on above: Order Comment: Order Added by Discern Expert. Performed By: #### 2 856177, 1348536, 70972594, 9157178, 1144252, 3041251 #### [facility] [address] [place] [address] Eosinophils/100 WBC (Bld) 0.1 % Normal 0.0-8.0 [facility] Comment on above: Order Comment: Order Added by Discern Expert. Performed By: #### 2 470263, 4445913, 29786356, 2401798, 6104128, 4801908 #### [facility] [address] [place] [address] Eosinophils/Leukocy julia Auto (Bld) [Pure # fraction] 0.0 E9/L Normal 0.0-0.5 [facility] Comment on above: Order Comment: Order Added by Discern Expert. Performed By: #### 2 461934, 0171028, 54936757, 6531482, 2712345, 6328905 #### [facility] [address] [place] [address] Lymphocytes/100 WBC (Bld) 10.8 % Low 14.0-50.0 [facility] Comment on above: Order Comment: Order Added by Discern Expert. Performed By: #### 2 163985, 3032741, 96584210, 4599575, 2665491, 9924620 #### [facility] [address] [place] [address] Lymphocytes/Leukocy julia Auto (Bld) [Pure # fraction] 1.0 E9/L Normal 1.0-4.0 [facility] Comment on above: Order Comment: Order Added by Discern Expert. Performed By: #### 2 591181, 1290123, 12703648, 0909938, 3648774, 2953329 #### [facility] [address] [place] [address] Monocytes/100 WBC (Bld) 8.1 % Normal 4.0-14.0 [facility] Comment on above: Order Comment: Order Added by Discern Expert. Performed By: #### 2 076700, 4993780, 18544404, 7865234, 6969687, 1979172 #### [facility] [address] [place] [address] Monocytes/Leukocyte s Auto (Bld) [Pure # fraction] 0.8 E9/L Normal 0.2-1.0 [facility] Comment on above: Order Comment: Order Added by Discern Expert. Performed By: #### 2 862529, 8553515, 09100387, 1885254, 7649335, 8982594 #### [facility] [address] [place] [address] Neutrophils/100 WBC (Bld) 80.8 % High 36.0-75.0 [facility] Comment on above: Order Comment: Order Added by Discern Expert. Performed By: #### 2 425205, 2432575, 56191185, 1150946, 3058974, 7081489 #### [facility] [address] [place] [address] Neutrophils/Leukocy julia Auto (Bld) [Pure # fraction] 7.8 E9/L High 2.0-7.5 [facility] Comment on above: Order Comment: Order Added by Discern Expert. Performed By: #### 2 843693, 0353649, 82083817, 1014613, 9642786, 1495282 #### [facility] [address] [place] [address] BUNon 08-31-2022 Urea nitrogen [Mass/Vol] 15 mg/dL Normal 5-21 [facility] Comment on above: Performed By: #### 2 468782, 6638776, 4330663, 7201958, 06558531, 0584381 ####[facility] [address] [place] [address] Blood Bank Slipon 08-31-2022 Blood Bank Slip [id number]#1. 00CD:127 Normal [facility] CBC w/ Auto Diffon Erythrocyte distribution width (RBC) [Ratio] 13.9 % Normal 10.9-14.2 [facility] Comment on above: Performed By: #### 2 829612, 4183727, 2073670, 9767320, 01683085, 9557685 ####[facility] [address] [place] [address] Hematocrit (Bld) [Volume fraction] 41.7 % Normal 34.0-46.0 [facility] Comment on above: Performed By: #### 2 210676, 1766500, 3336907, 5645178, 20839146, 7260691 ####[address] [address] Hemoglobin (Bld) [Mass/Vol] 14.0 g/dL Normal 12.0-16.0 [facility] Comment on above: Performed By: #### 2 869487, 2469809, 2135782, 6878888, 87074080, 8407116 ####[address] [address] MCH (RBC) [Entitic mass] 29.7 pg Normal 27.0-34.0 [facility] Comment on above: Performed By: #### 2 820092, 2986962, 0228102, 9630881, 04923872, 1201996 ####[address] [address] MCHC (RBC) [Mass/Vol] 33.7 g/dL Normal 31.4-36.0 [facility] Comment on above: Performed By: #### 2 688567, 2040525, 6586025, 9870478, 47977384, 6049785 ####[address] [place] [address] MCV (RBC) [Entitic vol] 88.2 fL Normal 80.0-100.0 [facility] Comment on above: Performed By: #### 2 818477, 1568121, 7161607, 0915769, 60009051, 5259191 ####[facility] [address] [place] [address] Platelet mean volume (Bld) [Entitic vol] 7.9 fL Normal 6.4-10.8 [facility] Comment on above: Performed By: #### 2 324430, 4591213, 5797788, 8973434, 21159620, 9951225 ####[facility] [address] [place] [address] Platelets (Bld) [#/Vol] 240.0 E9/L Normal 150.0-500.0 [facility] Comment on above: Performed By: #### 2 524253, 4702404, 8751247, 6549234, 87695265, 7761693 ####[facility] [address] [place] [address] RBC (Bld) [#/Vol] 4.7 E12/L Normal 4.3-5.9 [facility] Comment on above: Performed By: #### 2 333536, 1008282, 7263948, 6378068, 29740759, 5974230 ####[facility] [address] [place] [address] WBC corrected for nucl RBC Auto (Bld) [#/Vol] 9.7 E9/L Normal 4.0-11.0 [facility] Comment on above: Performed By: #### 2 942909, 0982706, 9909966, 9176336, 51085741, 9620223 ####[facility] [address] [place] [address] CHEMISTRYOrdered By: SYSTEM SYSTEM on 08-31-2022 Anion gap [Moles/Vol] 11 mmol/L Normal 6 - 16 mEq/L FT [facility] Chloride [Moles/Vol] 101 mmol/L Normal 101 - 111 mmol/L [facility] CO2 [Moles/Vol] 26 mmol/L Normal 21 - 31 mmol/L [facility] Remisol Creatinine [Mass/Vol] 0.8 mg/dL Normal 0.5 [...] Remisol Consent for Anesthesiaon Consent for Anesthesia [id number]#1.0 0CD:127 Normal [facility] Creatinineon 08-31-2022 Creatinine [Mass/Vol] 0.8 mg/dL Normal 0.5-1.3 [facility] Comment on above: Performed By: #### 2 081372, 3454178, 9641674, 4776045, 27605415, 9290366 ####[facility] [address] [place] [address] Discharge Instructionson Discharge Instructions [id number]#1 .00CD:127 Normal [facility] Discharge Note-Nursingon Discharge Note-Nursing CECI SPEARS :1955 [...] Up Appointments after Discharge Follow Up with Gwny Garcia When: 09/29/2022 09:30 AM EST Comments: Keep scheduled appointment Where: [address] [place] [address]- Business (1) Follow Up with CAMILLE WILLIAMSON When: 09/03/2022 09:00 AM EST Where: [address] [place] [address] Business (1) Medications What How Much When Why Instructions Next Dose Unchanged acetaminophen-oxycodon e (Percocet 5 mg-325 mg oral tablet) See instructions Localized osteoarthritis of right knee take one to two every 4 hours as needed for knee replacement pain Pickup at [facility]/pharmacy #6177 NEEDED FOR PAIN, AFTER 10 AM Unchanged aspirin (aspirin 325 mg Tab) 1 Tablets By Mouth Every day Duration: 30 Days Start the day after knee replacement surgery Pickup at [facility]/pharmacy #6177 09/01 @ 9 AM Unchanged cephalexin (Keflex 500 mg Cap) 1 Capsules By Mouth 4 times a day Duration: 5 Days Start the day after knee replacement surgery Pickup at [facility]/pharmacy #6177 08/31 @ 12 PM Unchanged docusate (Colace 100 mg Cap) 1 Capsules By Mouth 2 times a day Pickup at [facility]/pharmacy #6177 08/31 @ 9 PM Unchanged levothyroxine (levothyroxine 137 mcg (0.137 mg) Tab) 1 Tablets By Mouth Every day 09/01 @ 9 AM Unchanged metoprolol (metoprolol 25 mg ER Tab) 1 Tablets By Mouth Every day 09/01 @ 9 AM [id number] [address] [place], [place] [id number] [phone] Test Results CBC BMP WBC: 9.7 E9/L [...] HIGH [6194-1-010] (2), 08/30/2022, Unknown - RODDY: {01}[id number]{10} [id number]{17}[id number] [employer] [place], [place] [facility] DISCHARGE INSTRUCTIONS TOTAL KNEE ARTHROPLASTY INCISION CARE: Mepilex dressing can get wet with showers. Please remove 10 days after surgery per instruction sheet. If poly present, please coordinate removal 21 days after surgery with office staff. Please notify the office if any increase i (more content not included)... Normal [facility] HEMATOLOGYOrdered By: SYSTEM SYSTEM on 08-31-2022 Basophils/100 [...] 13.9 % Normal 10.9 - 14.2 % [facility] HemeAutoSS Hematocrit (Bld) [Volume fraction] 41.7 % [...] 240.0 E9/L Normal 150.0 - 500.0 E9/L FT HemeAutoSS RBC (Bld) [#/Vol] 4.7 E12/L Normal 4.3 - 5.9 E12/L FT HemeAutoSS WBC corrected for nucl RBC Auto (Bld) [#/Vol] 9.7 E9/L Normal 4.0 - 11.0 E9/L [facility] HemeAutoSS Interdisciplinary Note - Karsten e Manageron 08-31-2022 Interdisciplinary Note - Criminal Justice Department Chair CRM to room to discuss DC planning. Patient is awake, alert and oriented. She has no family in room. She is from home, lives with Son. Has family transportation at [place]. Patient verified home DME, insurance and PCP. [...] was requesting to stay over night Normal [facility] Comment on above: Result Comment: Elec tronically Signed By: Lili Wing\.br\Date and Time Signed: 08/31/22 15:12 EST Interdisciplinary Note - Arabella n 08-31-2022 Interdisciplinary Note - OT OT six clicks score / = HH services. Patient requires Min A [...] OT needs. DC inpatient OT services. Normal [facility] IntraOperative Documentson 0 08-31-2022 IntraOperative Documents [id number] 0CD:127 Normal [facility] Lyteson 08-31-2022 Anion gap [Moles/Vol] 11 mmol/L Normal 6-16 [facility] Comment on above: Performed By: #### 2 770526, 5956475, 9622251, 0339480, 68930385, 8254789 ####[facility] [address] [place] [address] Chloride [Moles/Vol] 101 mmol/L Normal 101-111 [facility] Comment on above: Performed By: #### 2 207709, 8349627, 1536829, 4613829, 89653856, 4810507 ####[facility] [address] [place] [address] CO2 [Moles/Vol] 26 mmol/L Normal 21-31 [facility] Comment on above: Performed By: #### 2 620693, 4985960, 9341956, 7826240, 33164954, 5509533 ####[facility] [address] [place] [address] Potassium [Moles/Vol] 4.2 mmol/L Normal 3.5-5.3 [facility] Comment on above: Performed By: #### 2 001383, 3804713, 2089569, 9162450, 56410063, 0113410 ####[facility] [address] [place] [address] Sodium [Moles/Vol] 134 mmol/L Low 135-145 [facility] Comment on above: Performed By: #### 2 227579, 0373553, 4890626, 6144643, 81935530, 7600683 ####[facility] [address] [place] [address] Operative Reporton Operative Report SURGERY DATE: 08/30/2022 PREOPERATIVE DIAGNOSIS: Right knee end-stage osteoarthritis with antalgic gait compounded by morbid obesity, BMI greater than 40 POSTOPERATIVE DIAGNOSIS: Right knee end-stage osteoarthritis with antalgic gait compounded by morbid obesity, BMI greater than 40 OPERATION: Right total knee arthroplasty compounded by morbid obesity, BMI greater than 40 ANESTHESIA: General block combination ANESTHESIOLOGIST: Hossein oFster CRNA ESTIMATED BLOOD LOSS: Zero SPECIMEN: Bone [...] is indicated. Family members are present from [place] to assist with her care perioperatively. Request [...] performed. This was sized at a #5 [employer]. Anterior posterior chamfer cuts as well [...] PATIENT CONDITION: Satisfactory Wesley Conte Dictated: 08/30/2022 [id number] Transcribed: 08/31/2022 cc:Camille Williamson M.D. [facility] Comment on above: Result Comment: Elec [...] the proposed procedure. 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 It is therefore advised not to drive until after your first office visit following surgery FOLLOW-UP OFFICE VISIT: __ Gwyn Garcia DO [facility] [address] [place] [address] Reviewed: 12-04 [facility] Preoperative Documentson Preoperative Documents [id number] [facility] Progress Note-Physicianon Progress Note-Physician Patient: CECI [...] All Problems Knee osteoarthritis / SNOMED CT 986785486 / Confirmed Hypothyroid / SNOMED CT 04989573 / Confirmed Physical Examination Gastrointestinal: Soft, Non-tender. [...] out tomorrow. F/U in 4 weeks.. Normal [facility] Comment on above: Result Comment: Elec tronically Signed By: Gwyn Garcia DO\.br\Date and Time Signed: 08/31/22 07:22 EST eGFRon 08-31-2022 GFR/1.73 sq M.predicted among blacks MDRD (S/P/Bld) [Vol rate/Area] mL/min/{1.73_m2} Normal >=59 [facility] Comment on above: Order Comment: Order added by Discern Expert. Result Comment: eGFR is race adjusted. AA=. Performed By: #### 2 [id number], [id number], [id number], [id number], [id number], [id number] ####[facility] [address] [place] [address] GFR/1.73 sq M.predicted among non-blacks MDRD (S/P/Bld) [Vol rate/Area] mL/min/{1.73_m2} Normal >=59 [facility] Comment on above: Order Comment: Order added by Discern Expert. Result Comment: Electrician Technician taylor kidney disease could be indicated at eGFR's of less than 60 mL/min/1.73m2. Kidney failure is indicated at less than 15 mL/min/1.73m2. Performed By: #### 2 [id number], [id number], 3609327, 1351410, [id number], [id number] ####[facility] [address] [place] [address] ABO/Rhon 08-30-2022 ABO/Rh Positive Invalid Interpretation Code [facility] Comment on above: Performed By: #### 2 [id number], [id number], [id number], [id number], [id number], [id number] #### [facility] [address] [place] [address] ABO/Rh History Checkon 08-30 ABO/Rh History Check Verified Hx Blood Type Normal [facility] Comment on above: Performed By: #### 2 [id number], [id number], [id number], [id number], [id number], [id number] #### [facility] [address] [place] [address] ABSCon 08-30-2022 ABSC Gel Interp Negative Normal [facility] Comment on above: Performed By: #### 2 [id number], [id number], [id number], [id number], 7843485, [id number] #### [facility] [address] [place] [address] BLOOD BANKOrdered By: Maritza Sepulveda on 08-30-2022 ABO/Rh Interp Positive Invalid Interpretation Code [facility] BB Subsection ABSC Gel Interp Negative (08/30/22 10:25 AM) Normal [facility] BB Subsection Blood Bank ID#on 08-30-2022 BBID# [id number] Invalid Interpretation Code [facility] Comment on above: Performed By: #### 2 [id number], [id number], [id number], [id number], 2792795, [id number] #### [facility] [address] [place] [address] Consent for Treatmenton Consent for Treatment [id number]#1.0 0CD:127 Normal [facility] H&P Updateon 08-30-2022 H&P Update [id number]#1. 00CD:127 Normal [facility] Main OR Intraoperative Recor don 08-30-2022 Main OR Intraoperative Record IntraOp Document Type FT Summary Primary Physician: Gwyn Garcia DO Finalized Date/Time: 09/02/22 08:03:57 Pt. Name: CECI SPEARS/Sex: 1955 Female Med Rec #: [id number] Physician: Gwyn Garcia DO Financial #: [id number] Pt. Type: I Room/Bed: N317 Admit/Disch: 08/30/22 09:34:47 - 08/31/22 16:41:00 Institution: [...] Gwyn Lobato RN, Linda Calderon Role Performed PNEUMATIC SYSTEMS OPERATOR Surgeon - Primary Senior Javascript Engineer - Primary Time In 08/30/22 12:15:00 08/30/22 12:15:00 08/30/22 12:15:00 Time Out 08/30/22 13:45:00 08/30/22 13:33:00 08/30/22 13:45:00 Procedure KNEE TOTAL KNEE TOTAL KNEE TOTAL ARTHROPLASTY(Right) ARTHROPLASTY(Right) ARTHROPLASTY(Right) Comments DR. AMBROCIO SUPERVISING ORIENTATION Last Modified By: Jay FOUNTAIN OPERATOR, Magui Lobato RN, Linda Lobato RN, Linda 09/02/22 08:01:36 Nuris P 08/30/22 Nuris P 08/30/22 13:45:10 13:45:10 Entry 4 Entry 5 Entry 6 Case Attendee Fabian Church RN, Tonya Bergeron CST, Heath Role Performed Senior Javascript Engineer - Primary REGIONAL MEDICAL DIRECTOR Scrub - Primary Time In 08/30/22 12:15:00 08/30/22 12:15:00 08/30/22 12:15:00 Time Out 08/30/22 13:45:00 08/30/22 13:45:00 08/30/22 13:45:00 Procedure KNEE TOTAL KNEE TOTAL KNEE TOTAL ARTHROPLASTY(Right) ARTHROPLASTY(Right) ARTHROPLASTY(Right) Comments REGIONAL MEDICAL DIRECTOR STUDENT Last Modified By: Ranjit RN, Linda Lobato RN, Linda Lobato RN, Linda Calderon 08/30/22 Nuris P 08/30/22 Nuris Calderon 08/30/22 13:45:10 13:45:10 13:45:10 Entry 7 Entry [...] PRIMARY SCRUB FOR CASE - VSavage LOBATO RNproduction or plant engineer Protocols FT Pre-Care Text: Implements protective measures [...] Antibiotic Yes Time Out Cam QUEVEDO, Gwyn Sears, Given Participants Hossein Foster CRNA, Ferrer RN, [...] - Unil (more content not included)... Normal [facility] Main OR PACU I Recordon Main OR PACU I Record PACU Phase I Document Type FT Summary Primary Physician: Gwyn Garcia DO Finalized Date/Time: 08/30/22 14:52:15 Pt. Name: CECI SPEARS/Sex: 1955 Female Med Rec #: [id number] Physician: Gwyn Garcia DO Financial #: [id number] Pt. Type: A Room/Bed: Admit/Disch: 08/30/22 09:34:47 [...] By: Ana Gonzalez RN 08/30/22 14:52 Normal [facility] Main OR Preoperative Recordo n 08-30-2022 Main OR Preoperative Record PreOp Document Type FT Summary Primary Physician: Gwyn Garcia DO Finalized Date/Time: 08/30/22 12:47:27 Pt. Name: CECI SPEARS/Sex: 1955 Female Med Rec #: [id number] Physician: Gwyn Garcia DO Financial #: [id number] Pt. Type: A Room/Bed: Admit/Disch: 08/30/22 09:34:47 [...] By: Linda Lobato RN 08/30/22 12:47 Normal [facility] Monitor Recordon 08-30-2022 Monitor Record [id number]#1. 00CD:127 Normal [facility] Monitor Record [id number]#1. 00CD:127 [facility] Operative Reporton Operative Report Patient: CECI [...] Room in stable and satisfactory condition.. Normal [facility] Comment on above: Result Comment: Elec tronically [...] Ghotra DO Transcribed by: [place] Technologist: IDALIA Engle [facility] Inpatient Patient Summaryon 08-26-2022 Inpatient Patient Summary [address] [id number] [facility] Clinical Discharge Instructions PERSON INFORMATION Name: CECI SPEARS [facility]#:[id number] PHYSICIANS Admitting Physician: Gwyn Garcia DO Attending Physician: Gwyn Garcia DO PCP: CAMILLE WILLIAMSON MD Discharge Diagnosis: Localized osteoarthritis of right knee Comment: PATIENT EDUCATION INFORMATION Instructions: Cam - Total Knee Arthroplasty (CUSTOM) Medication Leaflets: Follow up: With: Address: When: Gwyn Garcia [address] [place], [place] [id number] [facility] () Comments: Keep scheduled appointment Type Location Start [facility] Surgery [facility] Surgical Services 08/30/2022 12:30 PM 08/30/2022 1:30 PM Confirmed MEDICATION LIST Medications to Continue with No Changes Other Medications diclofenac (diclofenac sodium 75 mg Oral EC Tab) 1 Tablets By Mouth every day. levothyroxine (levothyroxine 137 mcg (0.137 mg) Tab) 1 Tablets By Mouth every day. Comment: Normal [facility] Outpatient Surgery Discharge Instructionon 08-26-2022 Outpatient Surgery Discharge Instruction [address] [address] Patient Discharge Instructions PERSON INFORMATION [...] Follow up: With: Address: When: Gwyn Garcia [address] [place], [place] [phone] [facility] (1) Comments: Keep scheduled appointment Type Location Start [facility] Surgery [facility] Surgical Services 08/30/2022 12:30 PM 08/30/2022 1:30 [...] to serve you. Thank you for choosing [facility] HERE ARE THE MEDICATION CHANGES THAT OCCURRED DURING YOUR HOSPITAL STAY Medications to Continue with No Changes Other Medications diclofenac (diclofenac sodium 75 mg Oral EC Tab) 1 Tablets By Mouth every day. levothyroxine (levothyroxine 137 mcg (0.137 mg) Tab) 1 Tablets By Mouth every day. PATIENT EDUCATION INFORMATION Instructions: [place], [place] [facility] DISCHARGE INSTRUCTIONS TOTAL KNEE [...] Physical Therapy (more content not included)... Normal [facility] Consent for Procedure/Surger yon 08-25-2022 Consent for Procedure/Surgery [id number]#1.0 0CD:127 [facility] Immunization Recordson 08-25 Immunization Records [id number]#1.0 0CD:127 [facility] Outside Recordson 08-25-2022 Outside Records [id number]#1.0 0CD:127 [facility] Coding Summary.on 08-12-2022 Coding Summary. CD:[id number]:[id number] Gh 0bWw+PGhlYWQ+KC9CDIGxG 99qqXLqgV8ZV3hGZF9VQTD YAFJVVB7ETO5axBG6IYmwH 2VybiAv YfdpgWPdRN42EPh8OTX3kD uaSJatfG1loTDxS0y9MtPr PI23eS53VWnsJSEiPsD4Cr ZpbjsgbWFy D7tpXtVcxOZkOux+PHRhYm xlIHdpZHRoPScxMDAlJyBz iCfrAP6aCg9jXDQxRZLnnI xhcHNlOiBj l8kcSEBrGTtnXD1iqKiyU2 SwxTG4NQPms1w2Qs72kJB+ BLRiSKC2lOxxTLwiw876Nf Lku2zbLXG9 lRRqUOesSXQ3C58lc0L6DL RyXJGxGXZ0oYZ6kP8udLpx kuopP2FowQJpHiL1MBR4rW ZrlB2giYgs qeniiB0hVnq+S74KCO8RQD YSCJ9COvq2D8OqUktccTQ+ MX11FXKpFJ08nJOvoUDqf1 kwfSf4PbTi DMNxSPB8qHmrWUebg3TvCX ZoN85wlGJjg3N6LCWurWvs jHIcQeKbnLG0iF4ePKaocw wwj8hmfnnv Phvus7pwvp71rH73F16jHV weTPLxXMC0VQMjRSFesBoa kr4ayH9qIk1+YGcek2kku1 xfvGb0ZjIv JMPaveGutFmnDFE8f0UsAd 20E9HwvAaec4GwBre0nd14 aFEnw8S6qKA7ZYifFPVsmH 5sPOnbTaX0 HSGbVqNnxK33hPWyAFzzMc 7rrSqieJrzRI8gRSCwkqwr SOFhbB9gUDDkxPOnzQcoCE 4wNTBpbjtm n059OmOgBGU1TEMnwIXsM1 HayN3mFvWbOKNjPIMmH3Oi bCZnQPqkX437HUsmLiJ8MY SeklQtB0Fl ECJirAkrLiS4c0O9Mt4Gp1 EusevnPFQ8BUoxTFNkAcK9 EvZeWpO8T5FyGdu9TJXjaL ejIV1fQ1Wq AREudpqflnwepTG3VSXiNS BllL26zQMnCUsnEi2lx0I7 p300UJOfHVJnxA55Za7npI ogMTBwdCBU jU5vrgozf7kzowplJnGaMV OkBOi0BFn3CIRruYogOnNu UUZ9UwM3JRK5cLJutR5plF zgitfjcB9x Oyc+K91ckH2fJTI1VOQ4zu nyOOTeyvQkXZ73AQ57K4Hn PjwvdGFibGU+PGRpdiBzdH rqVH8nMpRv b9euo0YtPFlxG7IkEDKaEC fiFrh7KIHsLAC6uDV9hT9x XKHoHKkeb4H0qVK4W4Ilic Tybb2xu0an PWAcVUsqY74ycEIps4P8DH FxtJB4VJEaqKmwFiYdxN63 Oyc+AFUkfEiqe6RjOakvd0 kdb5wuiWh5 YpDoNEFbbiUkqJweZPP0y8 MlXa78S45dGBpxDXBaLKGn MEBaVYMlcCwaix9soY4gEv 8+PGNvbCB3 dHY2oI8pRENtYeE2CUmaN1 40VqEigPTyUzswl5wjc4wt tUe4YzIrTPNozjDmzMlpUO T1n2DuCk97 I16kHVyvQEEjBJCxYNXgJO UgoSlcrx8pgM9hNo6+PC9j v0hgyd36cH52aQH+PHRkIH B1kFahFTwa CNBzaB2qSBekPmF6YBQnUd QqmM28cAYfKVvpPa1uhDpf jQmhDG2mMMXmeshoi823Ze Ogc8dmULEy vDDtZCjbBLE4G54fl9I2ON IgCKMgDRP1sOD1eW2onJmn bjogbGVmdDsgdmVydGljYW pxHFlsR798 IHRvcDsnPlBhdGllbnQgTm YbBUk4P9AhBhh7KKUrwEcy HG4ryIHzJBecSt7hcGqktK fkZD7sMUSz tbtpg601NbKsv7pcSRYumI DbFLzaBRH5K91dx1X3JXWa JTYtMOF3bAA3jM6nfZiram ogbGVmdDsg cgOvsTouAXuaRVurO301WB RvcDsnPkJpcnRoIERhdGU6 IT06WG17sGUyp6O0sKS3G6 BhZGRpbmct oeobnXW0AUUoZJSejA09Gx 4enOyaGg7rJDIxCEM2AZHr cOUqS7HhlQ2eOpPtVNRkOK JiP9UjdGMb GFkjR017SPkvLmH8ACZbtv HdO9WlTZWrdFhqRhL9r1U0 Vv9RQ3W5GM61SO09uUDsz1 L1fAK6J4Cm QCVdecyywjaedVS7UHVlVA DhzO27Zi9drOgsXi7mYEXo XJV8MEVveZThY9PhdC5jIt AjMDAwMDAw K2DkxUEmJDddP138RJofDb S3ICEyjjSiZ1GvTEBpbXdp IzE1t0N7Ts2YIXz6FW74SQ 20mLGty8B3 pIM5F8LjQILbflkyulpvsG V1QINqNPKxkD43Sh3caVdw Oh7oXOTpDKQ8CHRtiFXrA1 YefE7kPbWj KHXlNDFbD9NnnOBdQNhfZ2 89IKdiPnW6ETWdsjHyT7Xd CEZxyMttOjZ4m4I8Ux4CEM JnJA33BMQ0 gRJ9XY24BU30W9OzBfqkaS FibGU+PHRhYmxlIHdpZHRo JNubSKJdMrFxuCswKL1jYe 9yZGVyLWNv tDphsMTpVzDvt9csKVVcCT wbVX2qeNxcH2FnbQU8IIGy e8n6Jt53J53pR1KqsSD+PG QpuUY0cJW9 dF0eZuXaWuK6ZSmsK452Qc ZhuPUjEzvkl3fra9teeUv8 PwX7PDRapmHewQveHIN4t8 DeXf35S13w IHdpZHRoPSIxNSUiIHZhbG nkkh7ddI1wBo5+PGNvbCB3 gNS3yO8hLrGtEpW4RZdxP0 49InRvcCIv Ctolg6ohm7xelKt1HkMwJH KyyeDasXeoZSK3z9IpLe19 B1WucCpqz8JeWcg4mz24iS Fzk5B0eWE1 L6NbYMBhtiuvjKAanOclZW 2lNNNkxpfcDAAwqM2pHFZi I0a9HkVuZaG8UEtuV0Fooa A9ULBmdDTo KYddFJZ3U04zy0N1ZWNhFL ZrPHM1nWZ4qJ4ktNaehato bGVmdDsgdmVydGljYWwtYW fgK751NZUz cJfjRCEmzE0sWAWprZKgfF vyEC6bVFTxlmxcSvEJAWJF ULBMYBWxFKAST2GKCZ33ZW 22uOOte2I6 dOI1J4AvZWSoqqdxzphpzR Q1JSGgKRVixV36zASvFQjl Lp4tt5J8i169IZAgESFwkO 23Hg0fjXkz DUUboRHAsL1rhkhwa0lojt zrNdUoYMAeRZw7SSd7DMZu uOdwKdLxMBV3DmY1IYE5bL QcoF6zvOxx qtpuyH8lRmv+MDYvMDUvMT e8ENwfeXW+IIBbDWA0wMbn ATcvKGHgpR6wWQIrU1y3Cd NlMhG1FThx I8GeBBBggvuhRj04zQ8mFk NhJvA8QHbdG3JghpQ1MXZh aYLeHDplTJI4B18rr9D5HB MwMDAwMDA7 qSF4dB8dwNdhkedsfGPedI zcfaMfqUqyEFohKTukA766 KAYgqRezXmE1JKcdKXUrLL 56YR51fOQv v2H1tSV5N3ReTZDkxyomxu aqhZU2DLQcXEGiaH98tZSu MUddCf6at9W3z044IKXeJS UmaF54By4b jZtlUJTkbWUGzP0kvxwjq8 qfdiyyLiWwTDPyXRb9EGp1 AUPcsIhxGzMpAQW2LgU4PA L9sAPsyB9k aMilvrraxP8mAfx+RmVtYW mpTG18FR38iBJig2K3wFH0 J7RfAAMuleqksxdudQQ8UI CoXKAclN43 qTRrXDmyUn5pn9W4z747SH MgKDPxjQ21Zv4fzIjySBXf xRLReK6ctobzo4tqzyxoTz AwMDAwMDt0 GCl4HPHnwImyHhRiPZH9It M8QLM5kADxyK9ylTjbkfrf aE5yKcr+Y7H8eYJ3dVKvfI wvdGQ+PC90 tz33X3TdUawyXfb2TGZsJF Q8rHQ8fS0aLJMpZBssy7B7 iKX3R8FdqkGjcr5vh0juZO ViUFbsF98h cVVxe3W9NDJiwRW3EAKkaQ geIqCuwB44Nhb+PGNvbGdy k1FzDxyks2liz5cgwHq2Ei MwJSIgdmFs gAobFGV6s8CuTt19F03wLN dpZHRoPSIzMCUiIHZhbGln vb9jaC2bNa0+BTWvnYW2xJ Q4xB5wOvHn GvI4ZBmoM478PyZhbNKkTq uvb7pld1tnkRs6FcYnRWMb pzMzvEnkVFY4f7IiCa78M0 WusFnqp3Mf Jyq3eb51hPMko8V5qAJ2A8 RkBIUjrsulwZJeeXuzGY3q XIUprekdPRHtkI6wQBZtD2 k0UrTlUqM5 VRqoB4WcbcE8AETqbQBtLM YwyYSGoD1lymhxi8mcdzdr WlBcVXDlPHt9XYm1OICqrH duOiBsZWZ0 BeI6TOZ0vCDxdN4xcBlgjo vujL7nKyl+ABq2x1wdwRZs RD0dqRJ0JI84NC34cRXox8 Y8vVM8I0Ga XLNllfotmczidCD4UUWtSY SmbD58Sc4zwBmiAa8xZFZe ZAA3CFSyyCJhU0PzwL0sTo AjMDAwMDAw R0VjaICjVOvtJ837DVevCp H3PVQpyvFcO3ZxLQKqsXov SyW4p6U3Ks1SFG33OV20ZE 47eKVqu1D5 tYR2U1LaHEMycsazegoeuI C8DVOyIYDeiX19Uj1xrPcu Di3yQOHgUPV7TPLnhQQcB0 DttC7iCaUe UOKvFRMgM5TnqBZkWInaC7 43TPvaQwL1WDUfwxAjU4Xq GCBoeBkgYmC2n7X4Tv8ABh 18JL75DZ49 jLCbr6K4gCY0J2UwGCJpyd wdokbxkUF7WYArCGGjmZ87 Rk1emUdlHx4jATCuYUZ9CN OwlWRyX0Ke yM0rBpSeNMDsLYOtA4BnkY TjHMibZ090GOexWzE1KEGr jxKbD3TqQYLxyTpgSnR1e3 H9Mn6VQVay zqm0B9EuKpbnpVS+PC90YW GqRO77gXTqmIJzc5omoFu3 DpLhZYVgJTA3jWuyJIeyu4 RqDIErI92t bGFw (more content not included)... Normal [facility] Immunization Recordson 08-10 Immunization Records [id number]#1. 00CD:127 [facility] C Urineon 08-08-2022 Bacteria identified Cx Nom (U) Microbiology PROCEDURE: Urine Culture [R1] SOURCE: U CleanCatch BODY SITE: COLLECTED DATE/TIME: 08/06/2022 15:36 EST RECEIVED DATE/TIME: 08/06/2022 17:02 EST START DATE/TIME: 08/06/2022 17:02 EST FREE TEXT SOURCE: Gwyn Garcia DO, DO, Gwyn Sears FINAL REPORTS Final Report [] Verified Date/Time: 08/08/2022 10:04 EST 4,000 cfu/ml Mixed skin contaminants Performing Locations R1: This test was performed at: [facility], [address] [place] [address], [address] , [place], Normal [facility] Comment on above: Performed By: #### 2 746150, 7845124, 75797404, 4494550, 7742352, 4412952 #### [facility] [address] [place] [address] 43764 ABO/Rh Retypeon 08-06-2022 ABO/Rh Retype Interp Positive Invalid Interpretation Code [facility] Comment on above: Performed By: #### 2 786127, 8831024, 32261617, 1836668, 1873742, 9495116 #### [facility] [address] [place] [address] 52102 BUNon 08-06-2022 Urea nitrogen [Mass/Vol] 15 mg/dL Normal 5-21 [facility] Comment on above: Performed By: #### 2 110415, 4880735, 85633050, 1023205, 0277564, 8515385 #### [facility] [address] [place] [address] 17533 CBC w/Indiceson 08-06-2022 Erythrocyte distribution width (RBC) [Ratio] 14.3 % High 10.9-14.2 [facility] Comment on above: Performed By: #### 2 231945, 9772191, 45969129, 0278067, 9856785, 6413185 #### [facility] [address] [place] [address]1927 Hematocrit (Bld) [Volume fraction] 46.3 % High 34.0-46.0 [facility] Comment on above: Performed By: #### 2 262299, 1963943, 95930362, 2787195, 3148933, 2847789 #### [facility] [address] [place] [address]22 Hemoglobin (Bld) [Mass/Vol] 15.8 g/dL Normal 12.0-16.0 [facility] Comment on above: Performed By: #### 2 128450, 9214025, 66626831, 3551503, 4989250, 8101809 #### [facility] [address] [place] [address] 13248 MCH (RBC) [Entitic mass] 29.5 pg Normal 27.0-34.0 [facility] Comment on above: Performed By: #### 2 609096, 3584763, 51015970, 4449622, 8146420, 7605672 #### [facility] [address] [place] [address] MCHC (RBC) [Mass/Vol] 34.2 g/dL Normal 31.4-36.0 [facility] Comment on above: Performed By: #### 2 072987, 0099184, 76794111, 3711731, 4624347, 9336824 #### [facility] [address] [place], [place] [address] MCV (RBC) [Entitic vol] 86.3 fL Normal 80.0-100.0 [facility] Comment on above: Performed By: #### 2 373897, 8275842, 87133406, 8151705, 9964352, 1193171 #### [facility] [address] [place], [place] [address] Platelet mean volume (Bld) [Entitic vol] 7.8 fL Normal 6.4-10.8 [facility] Comment on above: Performed By: #### 2 132451, 5770651, 98596177, 7313441, 5175619, 7081832 #### [facility] [address] [place] [address] Platelets (Bld) [#/Vol] 239.0 E9/L Normal 150.0-500.0 [facility] Comment on above: Performed By: #### 2 304441, 1374742, 78093801, 4132493, 0170341, 3274118 #### [facility] [address] [place] [address] 00802 RBC (Bld) [#/Vol] 5.4 E12/L Normal 4.3-5.9 [facility] Comment on above: Performed By: #### 2 247005, 4674791, 97748237, 0269643, 0002862, 3940868 #### [facility] [address] [place] [address] WBC corrected for nucl RBC Auto (Bld) [#/Vol] 6.7 E9/L Normal 4.0-11.0 [facility] Comment on above: Performed By: #### 2 379882, 4248302, 22119984, 7041796, 1078927, 8583820 #### [facility] [address] [place] [address] Consent for Treatmenton Consent for Treatment [id number]#1.0 0CD:127 Normal [facility] Creatinineon 08-06-2022 Creatinine [Mass/Vol] 0.7 mg/dL Normal 0.5-1.3 [facility] Comment on above: Performed By: #### 2 477874, 9754026, 47140771, 5565833, 5676526, 5070697 #### [facility] [address] [place] [address] Glucoseon 08-06-2022 Glucose [Mass/Vol] 101 mg/dL Normal 55-199 [facility] Comment on above: Performed By: #### 2 765340, 0092503, 62678400, 7528789, 6493157, 3187568 #### [facility] [address] [place] [address] Lyteson 08-06-2022 Anion gap [Moles/Vol] 13 mmol/L Normal 6-16 [facility] Comment on above: Performed By: #### 2 806628, 4512586, 60608525, 2468527, 6860826, 0800738 #### [facility] [address] [place] [address] Chloride [Moles/Vol] 101 mmol/L Normal 101-111 [facility] Comment on above: Performed By: #### 2 578370, 0580522, 65112579, 7674352, 8632861, 6488539 #### [facility] [address] [place] [address] CO2 [Moles/Vol] 27 mmol/L Normal 21-31 [facility] Comment on above: Performed By: #### 2 528559, 1539003, 27580860, 1263689, 2878740, 8986752 #### [facility] [address] [place] [address] Potassium [Moles/Vol] 4.2 mmol/L Normal 3.5-5.3 [facility] Comment on above: Performed By: #### 2 799934, 9705158, 36835439, 8408986, 6916772, 0576075 #### [facility] [address] [place] [address] Sodium [Moles/Vol] 137 mmol/L Normal 135-145 [facility] Comment on above: Performed By: #### 2 758827, 6971861, 75153318, 6641507, 6312049, 4822345 #### [facility] [address] [place] [address] UA With Cult Reflexon 2021 Bacteria LM Ql (Urine sed) TRACE Normal Trace [facility] Comment on above: Performed By: #### 2 992990, 7214856, 30732347, 6354609, 9111063, 9069489 #### [facility] [address] [place] [address] Bilirubin Ql (U) Negative Normal Negative [facility] Comment on above: Performed By: #### 2 313577, 1464863, 51971640, 2444295, 2995215, 9513856 #### [facility] [address] [place] [address] Clarity (U) CLEAR Normal Clear [facility] Comment on above: Performed By: #### 2 111854, 4652809, 84438576, 6973050, 6344482, 2765962 #### [facility] [address] [place] [address] Color (U) YELLOW Normal Yellow [facility] Comment on above: Performed By: #### 2 913384, 1829076, 38077977, 9390342, 4751186, 1559104 #### [facility] [address] [place] [address] Epithelial cells.squamous LM.HPF (Urine sed) [#/Area] 3-4 Normal 0-2 [facility] Comment on above: Performed By: #### 2 752404, 7967172, 46544489, 4563647, 1529384, 6639648 #### [facility] [address] [place] [address] Glucose Test strip (U) [Mass/Vol] Negative Normal Negative [facility] Comment on above: Performed By: #### 2 153383, 4201848, 21662911, 1337505, 1079209, 4164328 #### [facility] [address] [place] [address] Hemoglobin Ql (U) Negative Normal Negative [facility] Comment on above: Performed By: #### 2 913811, 6715015, 29866228, 2994082, 8977480, 3499852 #### [facility] [address] [place] [address] Ketones (U) [Mass/Vol] Negative Normal Negative [facility] Comment on above: Performed By: #### 2 538004, 6921307, 07878617, 2333837, 7526333, 7974011 #### [facility] [address] [place] [address] [place].plasma/Lith ium.RBC (Bld) [Mass ratio] 0-3 Normal 0-3 [facility] Comment on above: Performed By: #### 2 426381, 7576693, 90974794, 5669517, 9714916, 2254804 #### [facility] [address] [place] [address] Mucus Ql (Urine sed) TRACE Normal [facility] Comment on above: Performed By: #### 2 425526, 6068763, 37617182, 4585855, 7192602, 8595299 #### [facility] [address] [place] [address] Nitrite Ql (U) Negative Normal Negative [facility] Comment on above: Performed By: #### 2 708508, 2285168, 32510723, 4841428, 6667839, 3176796 #### [facility] [address] [place] [address] pH (U) 7.0 [pH] Invalid Interpretation Code 5.0-9.0 [facility] Comment on above: Performed By: #### 2 894647, 7369543, 51216989, 1900866, 2548009, 4589338 #### [facility] [address] [place] [address] Protein (U) [Mass/Vol] Negative Normal Negative [facility] Comment on above: Performed By: #### 2 141083, 1057959, 73584724, 7844235, 2978921, 9870182 #### [facility] [address] [place] [address] Specific gravity (U) [Rel density] 1.015 Invalid Interpretation Code 1.005-1.030 [facility] Comment on above: Performed By: #### 2 943149, 2611006, 74308203, 0105912, 1369506, 3594344 #### [facility] [address] [place] [address] Type of Urine collection method Clean Catch Normal [facility] Comment on above: Performed By: #### 2 677022, 0671913, 03656690, 9531079, 2375679, 2257981 #### [facility] [address] [place] [address] Urobilinogen Qn (U) 0.2 {Tyson'U}/dL Normal 0.0-1.0 [facility] Comment on above: Performed By: #### 2 735499, 7206194, 00069757, 0491841, 9500486, 6609781 #### [facility] [address] [place] [address] WBC Auto Ql (U) TRACE Abnormal Negative [facility] Comment on above: Performed By: #### 2 518753, 2435614, 31686595, 6115201, 8006725, 9320271 #### [facility] [address] [place] [address] WBC LM.HPF (Urine sed) [#/Area] 6-15 Abnormal 0-5 [facility] Comment on above: Performed By: #### 2 294085, 9589469, 27548811, 1646090, 6527070, 0905135 #### [facility] [address] [place] [address] XR Chest 2 Viewson XR Chest 2 Views Exam Date/Time: 08/06/2022 [...] Quiros MD Transcribed by: [place] Technologist: Normal [facility] eGFRon 08-06-2022 GFR/1.73 sq M.predicted among blacks MDRD (S/P/Bld) [Vol rate/Area] mL/min/{1.73_m2} Normal >=59 [facility] Comment on above: Order Comment: Order added by Discern Expert. Result Comment: eGFR is race adjusted. AA=. Performed By: #### 2 451808, 1122733, 70482405, 8083954, 3654842, 7198419 #### [facility] [address] [place] [address] GFR/1.73 sq M.predicted among non-blacks MDRD (S/P/Bld) [Vol rate/Area] mL/min/{1.73_m2} Normal >=59 [facility] Comment on above: Order Comment: Order added by Discern Expert. Result Comment: Electrician Technician taylor kidney disease could be indicated at eGFR's of less than 60 mL/min/1.73m2. Kidney failure is indicated at less than 15 mL/min/1.73m2. Performed By: #### 2 873064, 5334313, 76204299, 5963404, 9527280, 7562416 #### [facility] [address] [place] [address] Physician Orderon 07-12-2022 Physician Order [id number] Normal [facility] CBC AUTO DIFFon 05-20-2022 BASO # 0.1 103/ul Normal 0.0-0.1 [facility] Comment on above: Performed By: #### C BC #### [facility] [address] [place] [address] Dr. Carmen Brown Basophils/100 WBC (Bld) 1.2 % Normal 0.2-2.0 [facility] Comment on above: Performed By: #### C BC #### [facility] [address] [place] [address] Dr. Carmen Brown EO # 0.2 103/ul Normal 0.0-0.7 [facility] Comment on above: Performed By: #### C BC #### [facility] [address] [place] [address] Dr. Carmen Brown Eosinophils/100 WBC (Bld) 3.9 % Normal 0.9-7.0 [facility] Comment on above: Performed By: #### C BC #### [facility] [address] [place] [address] Dr. Carmen Brown Erythrocyte distribution width (RBC) [Ratio] 13.2 % Normal 11.0-15.0 [facility] Comment on above: Performed By: #### C BC #### [facility] [address] [place] [address] Dr. Carmen Brown Hematocrit (Bld) [Volume fraction] 49.3 % Critically high 36.0-48.0 [facility] Comment on above: Performed By: #### C BC #### [facility] [address] [place] [address] Dr. Carmen Brown Hemoglobin (Bld) [Mass/Vol] 16.0 g/dL Normal 12.0-16.0 [facility] Comment on above: Performed By: #### C BC #### [facility] [address] [place] [address] Dr. Carmen Brown IG # 0.02 10e3/ul Normal 0.00-0.03 [facility] Comment on above: Performed By: #### C BC #### [facility] [address] [place] [address] Dr. Carmen Brown IG % 0.4 % Normal 0.0-0.5 [facility] Comment on above: Performed By: #### C BC #### [facility] [address] [place] [address] Dr. Carmen Brown LYMPH # 1.3 103/ul Normal 1.2-3.8 [facility] Comment on above: Performed By: #### C BC #### [facility] [address] [place] [address] Dr. Carmen Brown Lymphocytes/100 WBC (Bld) 24.6 % Normal 20.5-60.0 [facility] Comment on above: Performed By: #### C BC #### [facility] [address] [place] [address] Dr. Carmen Brown MANUAL DIFF REQ NO Normal [facility] Comment on above: Performed By: #### C BC #### [facility] [address] [place] [address] Dr. Carmen Brown MCH (RBC) [Entitic mass] 29.1 pg Normal 26.7-34.0 [facility] Comment on above: Performed By: #### C BC #### [facility] [address] [address] [address] Carmen Brown MCHC (RBC) [Mass/Vol] 32.5 g/dL Normal 29.9-35.2 [facility] Comment on above: Performed By: #### C BC #### [facility] [address] [address] [address] Carmen Brown MCV (RBC) [Entitic vol] 89.8 fL Normal 81.0-99.0 [facility] Comment on above: Performed By: #### C BC #### [facility] [address] [place] [address] Dr. Carmen Brown MONO # 0.4 103/ul Normal 0.3-0.8 [facility] Comment on above: Performed By: #### C BC #### [facility] [address] [place] [address] Dr. Carmen Brown Monocytes/100 WBC (Bld) 7.7 % Normal 1.7-12.0 [facility] Comment on above: Performed By: #### C BC #### [facility] [address] [place] [address] Dr. Carmen Brown NEUT # 3.2 103/ul Normal 1.4-6.5 [facility] Comment on above: Performed By: #### C BC #### [facility] [address] [place] [address] Dr. Carmen Brown Neutrophils/100 WBC (Bld) 62.2 % Normal 43.0-75.0 [facility] Comment on above: Performed By: #### C BC #### [facility] [address] [place] [address] Dr. Carmen Brown Platelet mean volume (Bld) [Entitic vol] 9.5 fL Normal 9.5-13.5 [facility] Comment on above: Performed By: #### C BC #### [facility] [address] [place] [address] Dr. Carmen Brown PLT 256 103/ul Normal 150-450 [facility] Comment on above: Performed By: #### C BC #### [facility] [address] [place] [address] Dr. Carmen Brown RBC 5.49 106/ul Critically high 4.20-5.40 [facility] Comment on above: Performed By: #### C BC #### [facility] [address] [place] [address] Dr. Carmen Brown WBC 5.1 103/ul Normal 4.0-11.0 [facility] Comment on above: Performed By: #### C BC #### [facility] [address] [place] [address] Dr. Carmen Brown FREE T4on 05-20-2022 Free T4 [Mass/Vol] 1.43 ng/dL Normal 0.76-1.[address] [facility] Comment on above: Performed By: #### F T4 #### [facility] [address] [place] [address] Dr. Carmen Brown GLYCOHEMOGLOBIN A1Con 2021 ADA RECOMMENDATION SEE BELOW Normal [facility] Comment on above: Result Comment: ADA RECOMMENDED LIMIT 4.0 - 6.0 ADA THERAPEUTIC TARGET < 7.0 ACTION SUGGESTED > 7.0 Performed By: #### A 1C #### [facility] [address] [place] [address] Dr. Carmen Brown Glucose [Mass/Vol] 128 mg/dL Normal [facility] Comment on above: Performed By: #### A 1C #### [facility] [address] [place] [address] Dr. Carmen Brown HbA1c (Bld) [Mass fraction] 6.1 % Normal 4.5-6.2 [facility] Comment on above: Performed By: #### A 1C #### [facility] [address] [place] [address] Dr. Carmen Brown PROF CHEM 8 (BAS METB)on Anion gap [Moles/Vol] 11.9 mmol/L Normal [facility] Comment on above: Performed By: #### T SH, BMP #### [facility] [address] [place] [address] Dr. Carmen Brown Calcium [Mass/Vol] 9.5 mg/dL Normal 8.5-10.1 [facility] Comment on above: Performed By: #### T SH, BMP #### [facility] [address] [place] [address] Dr. Carmen Brown Chloride [Moles/Vol] 105 mmol/L Normal 98-107 [facility] Comment on above: Performed By: #### T SH, BMP #### [facility] [address] [place] [address] Dr. Carmen Brown CO2 [Moles/Vol] 28.5 mmol/L Normal 21.0-32.0 [facility] Comment on above: Performed By: #### T SH, BMP #### [facility] [address] [place] [address] Dr. Carmen Brown Creatinine [Mass/Vol] 0.78 mg/dL Normal 0.55-1.02 [facility] Comment on above: Performed By: #### T SH, BMP #### [facility] [address] [place] [address] Dr. Carmen Brown EGFR-AF ECUADOREAN >60 Normal >=60 [facility] Comment on above: Performed By: #### T SH, BMP #### [facility] [address] [place] [address] Dr. Carmen Brown EGFR-NON AF ECUADOREAN >60 Normal >=60 [facility] Comment on above: Performed By: #### T SH, BMP #### [facility] [address] [place] [address] Dr. Carmen Brown Glucose [Mass/Vol] 127 mg/dL Critically high 74-106 [facility] Comment on above: Performed By: #### T SH, BMP #### [facility] [address] [place] [address] Dr. Carmen Brown Potassium [Moles/Vol] 4.4 mmol/L Normal 3.5-5.1 [facility] Comment on above: Performed By: #### T SH, BMP #### [facility] [address] [place] [address] Dr. Carmen Brown Sodium [Moles/Vol] 141 mmol/L Normal 136-145 [facility] Comment on above: Performed By: #### T SH, BMP #### [facility] [address] [place] [address] Dr. Carmen Brown Urea nitrogen [Mass/Vol] 10.0 mg/dL Normal 7.0-18.0 [facility] Comment on above: Performed By: #### T SH, BMP #### [facility] [address] [place] [address] Dr. Carmen Brown Urea nitrogen/Creatinine [Mass ratio] 12.8 mg/mg Normal [facility] Comment on above: Performed By: #### T JUAN, BMP #### [facility] [address] [place] [address] Dr. Carmen Brown TSHon 05-20-2022 TSH 1.276 uIU/mL Normal 0.358-3.740 [facility] Comment on above: Performed By: #### T JUAN, BMP #### [facility] [address] [place] [address] Dr. Carmen Brown Vital Signs Date Time Vital Sign Value Performing Clinician Facility 05-23-2025 13:43-0400 Body height 160.02 cm Camille Williamson MD Work Phone: [facility] 05-23-2025 13:43-0400 Body mass index (BMI) [Ratio] 37.3 kg/m2 Camille Williamson MD Work Phone: [facility] 05-23-2025 13:43-0400 Body weight 95.7 kg Camille Williamson MD Work Phone: [facility] 05-23-2025 13:43-0400 Diastolic blood pressure 81 mm[Hg] Camille Williamson MD Work Phone: [facility] 05-23-2025 13:43-0400 Heart rate 60 /min Camille Williamson MD Work Phone: [facility] 05-23-2025 13:43-0400 Systolic blood pressure 145 mm[Hg] Camille Williamson MD Work Phone: [facility] 05-01-2025 [id number] Body height 160.02 cm Camille Williamson MD Work Phone: [facility] 05-01-2025 11:23-0400 Body mass index (BMI) [Ratio] 38 kg/m2 Camille Williamson MD Work Phone: [facility] 05-01-2025 [id number] Body weight 97.52 kg Camille Williamson MD Work Phone: [facility] 05-01-2025 11:23-0400 Diastolic blood pressure 82 mm[Hg] Camille Williamson MD Work Phone: [facility] 05-01-2025 11:23-0400 Heart rate 59 /min Camille Williamson MD Work Phone: [facility] 05-01-2025 11:23-0400 Systolic blood pressure 137 mm[Hg] Camille Williamson MD Work Phone: [facility] 03-27-2025 10:52-0400 Body height 157.5 cm Gwyn Garcia DO Work Phone: [facility] 03-27-2025 10:52-0400 Body mass index (BMI) [Ratio] 39.69 kg/m2 Gwyn Garcia DO Work Phone: [facility] 03-27-2025 10:52-0400 Body weight 98.43 kg Gwyn Garcia DO Work Phone: [facility] 03-07-2025 15:10-0400 Body height 160.02 cm Camille Williamson MD Work Phone: [facility] 03-07-2025 15:10-0400 Body mass index (BMI) [Ratio] 42.1 kg/m2 Camille Williamson MD Work Phone: [facility] 03-07-2025 15:10-0400 Body weight 107.95 kg Camille Williamson MD Work Phone: [facility] 03-07-2025 15:10-0400 Diastolic blood pressure 79 mm[Hg] Camille Williamson MD Work Phone: [facility] 03-07-2025 15:10-0400 Heart rate 82 /min Camille Williamson MD Work Phone: [facility] 03-07-2025 15:10-0400 Respiratory rate 14 /min Camille Williamson MD Work Phone: [facility] 03-07-2025 15:10-0400 Systolic blood pressure 121 mm[Hg] Camille Williamson MD Work Phone: [facility] 02-25-2025 14:10-0400 Body height 161.3 cm Heath Monroy DO Work Phone: [facility] 02-25-2025 14:10-0400 Body mass index (BMI) [Ratio] 38.36 kg/m2 Heath Monroy DO Work Phone: [facility] 02-25-2025 14:10-0400 Body weight 99.79 kg Heath Monroy DO Work Phone: [facility] 02-14-2025 14:43-0400 Body height 160.02 cm Camille Williamson MD Work Phone: [facility] 02-14-2025 14:43-0400 Body mass index (BMI) [Ratio] 42.1 kg/m2 Camille Williamson MD Work Phone: [facility] 02-14-2025 14:43-0400 Body weight 107.95 kg Camille Williamson MD Work Phone: [facility] 02-14-2025 14:43-0400 Diastolic blood pressure 82 mm[Hg] Camille Williamson MD Work Phone: [facility] 02-14-2025 14:43-0400 Heart rate 76 /min Camille Williamson MD Work Phone: [facility] 02-14-2025 14:43-0400 Systolic blood pressure 133 mm[Hg] Camille Williamson MD Work Phone: [facility] 10-30-2024 13:46-0500 Body mass index (BMI) [Ratio] 38.88 kg/m2 Alma Kay DO Work Phone: [facility] 10-30-2024 13:46-0500 Body weight 101.15 kg Alma Kay DO Work Phone: [facility] 10-30-2024 13:46-0500 Diastolic blood pressure 84 mm[Hg] Alma Kay DO Work Phone: [facility] 10-30-2024 13:46-0500 Systolic blood pressure 140 mm[Hg] Alma Kay DO Work Phone: [facility] 09-24-2024 14:42-0500 Body height 160.02 cm [facility] 09-24-2024 14:42-0500 Body mass index (BMI) [Ratio] 40 kg/m2 [facility] 09-24-2024 14:42-0500 Body weight 102.51 kg [facility] 09-24-2024 14:42-0500 Diastolic blood pressure 79 mm[Hg] [facility] 09-24-2024 14:42-0500 Heart rate 76 /min [facility] 09-24-2024 14:42-0500 Systolic blood pressure 145 mm[Hg] [facility] 06-05-2024 11:43-0400 Body height 160.02 cm [facility] 06-05-2024 11:43-0400 Body mass index (BMI) [Ratio] 40.1 kg/m2 [facility] 06-05-2024 11:43-0400 Body weight 102.62 kg [facility] 06-05-2024 11:43-0400 Diastolic blood pressure 88 mm[Hg] [facility] 06-05-2024 11:43-0400 Heart rate 76 /min [facility] 06-05-2024 11:43-0400 Respiratory rate 18 /min [place] 06-05-2024 11:43-0400 SaO2% (BldA) [Mass fraction] 97 % [facility] 06-05-2024 11:43-0400 Systolic blood pressure 134 mm[Hg] [facility] 05-23-2024 16:00-0400 Body height 161.3 cm Princess Stephanie DO Work Phone: [facility] 05-23-2024 16:00-0400 Body mass index (BMI) [Ratio] 40.45 kg/m2 Princess Stephanie DO Work Phone: [facility] 05-23-2024 16:00-0400 Body weight 105.23 kg Princess Stephanie DO Work Phone: [facility] 05-23-2024 16:00-0400 Diastolic blood pressure 84 mm[Hg] Princess Stephanie DO Work Phone: [facility] 05-23-2024 16:00-0400 Systolic blood pressure 128 mm[Hg] Princess Stephanie DO Work Phone: [facility] 05-22-2024 09:21-0400 Body height 160.02 cm [facility] 05-22-2024 09:21-0400 Body mass index (BMI) [Ratio] 40.4 kg/m2 [facility] 05-22-2024 09:21-0400 Body weight 103.41 kg [facility] 05-22-2024 09:21-0400 Diastolic blood pressure 87 mm[Hg] [facility] 05-22-2024 09:21-0400 Heart rate 74 /min [facility] 05-22-2024 09:21-0400 Systolic blood pressure 152 mm[Hg] [facility] 2024 14:30-0400 Body height 160.02 cm [facility] 2024 14:30-0400 Body mass index (BMI) [Ratio] 40.7 kg/m2 [facility] 2024 14:30-0400 Body weight 104.32 kg [facility] 2024 14:30-0400 Diastolic blood pressure 77 mm[Hg] [facility] 2024 14:30-0400 Heart rate 75 /min [facility] 2024 14:30-0400 Systolic blood pressure 122 mm[Hg] [facility] 05-20-2023 14:30-0400 Body height 160.02 cm Camille Williamson Other [facility] Other 05-20-2023 14:30-0400 Body mass index (BMI) [Ratio] 40.38 kg/m2 Camille Williamson Other [facility] Other 05-20-2023 14:30-0400 Body weight 103.42 kg Camille Williamson Other [facility] Other 05-20-2023 14:30-0400 Diastolic blood pressure 81 mm[Hg] Camille Williamson Other [facility] Other 05-20-2023 14:30-0400 Systolic blood pressure 140 mm[Hg] Camille Williamson Other [facility] Other 04-28-2023 13:30-0400 Body height 160.02 cm Camille Williamson Other [facility] Other 04-28-2023 13:30-0400 Body mass index (BMI) [Ratio] 39.14 kg/m2 Camille Williamson Other [facility] Other 04-28-2023 13:30-0400 Body weight 100.25 kg Camille Williamson Other [facility] Other 04-28-2023 13:30-0400 Diastolic blood pressure 82 mm[Hg] Camille Williamson Other [facility] Other 04-28-2023 13:30-0400 Systolic blood pressure 130 mm[Hg] Camille Williamson Other [facility] Other 02-21-2023 14:30-0400 Body height 160.02 cm Camille Williamson Other [facility] Other 02-21-2023 14:30-0400 Body mass index (BMI) [Ratio] 41.98 kg/m2 Camille Williamson Other [facility] Other 02-21-2023 14:30-0400 Body weight 107.5 kg Camille Williamson Other [facility] Other 02-21-2023 14:30-0400 Diastolic blood pressure 82 mm[Hg] Camille Williamson Other [facility] Other 02-21-2023 14:30-0400 Systolic blood pressure 136 mm[Hg] Camille Williamson Other [facility] Other 09-16-2022 15:15-0500 Body height 160.02 cm Camille Williamson Other [facility] Other 09-16-2022 15:15-0500 Body mass index (BMI) [Ratio] 41.62 kg/m2 Camille Williamson Other [facility] Other 09-16-2022 15:15-0500 Body weight 106.6 kg Camille Williamson Other [facility] Other 09-16-2022 15:15-0500 Diastolic blood pressure 86 mm[Hg] Camille Williamson Other [facility] Other 09-16-2022 15:15-0500 SaO2% (BldA) [Mass fraction] 97 % Camille Williamson Other [facility] Other 09-16-2022 15:15-0500 Systolic blood pressure 132 mm[Hg] Camille Clay Other [facility] [place] Other 08-31-2022 15:54-0500 SaO2% (BldA) [Mass fraction] 98 % Gwyn Cam [facility] 08-31-2022 12:00-0500 Heart rate 66 /min Gwyn Cam [facility] 08-31-2022 12:00-0500 SaO2% (BldA) [Mass fraction] 98 % Gwyn Garcia [facility] 08-31-2022 12:00-0500 Body temperature 97.16 [degF] Gwyn Garcia [facility] 08-31-2022 12:00-0500 Diastolic blood pressure 78 mm[Hg] Gwyn Garcia [facility] 08-31-2022 12:00-0500 Mean blood pressure 96 mm[Hg] Gwyn Garcia [facility] 08-31-2022 12:00-0500 Systolic blood pressure 133 mm[Hg] Gwyn Garcia [facility] 08-31-2022 08:28-0500 Blood Pressure Location Gwyn Garcia [facility] 08-31-2022 08:28-0500 Body temperature 98.42 [degF] Gwyn Garcia [facility] 08-31-2022 08:28-0500 Diastolic blood pressure 55 mm[Hg] Gwyn Garcia [facility] 08-31-2022 08:28-0500 Heart rate 61 /min Gwyn Garcia [facility] 08-31-2022 08:28-0500 Hourly Rounding Gwyn Garcia [facility] 08-31-2022 08:28-0500 Mean blood pressure 64 mm[Hg] Gwyn Garcia [facility] 08-31-2022 08:28-0500 Respiratory rate 18 /min Gwyn Garcia [facility] 08-31-2022 08:28-0500 SaO2% (BldA) [Mass fraction] 98 % Gwyn Garcia [facility] 08-31-2022 08:28-0500 Systolic blood pressure 81 mm[Hg] Gwyn Garcia [facility] 08-31-2022 06:14-0500 Hourly Rounding Gwyn Garcia [facility] 08-31-2022 06:14-0500 Promise to Return Gwyn Garcia [facility] 08-31-2022 05:18-0500 Hourly Rounding Gwyn Garcia [facility] 08-31-2022 05:18-0500 Promise to Return Gwyn Garcia [facility] 08-31-2022 04:01-0500 Blood Pressure Location Gwyn Garcia [facility] 08-31-2022 04:01-0500 Body temperature 98.24 [degF] Gwyn Garcia [facility] 08-31-2022 04:01-0500 Diastolic blood pressure 81 mm[Hg] Gwyn Garcia [facility] 08-31-2022 04:01-0500 Heart rate 71 /min Gwyn Garcia [facility] 08-31-2022 04:01-0500 Mean blood pressure 96 mm[Hg] Gwyn Garcia [facility] 08-31-2022 04:01-0500 Mean blood pressure 103 mm[Hg] Gwyn Cam [facility] 08-31-2022 04:01-0500 Respiratory rate 17 /min Gwyn Garcia [facility] 08-31-2022 04:01-0500 Systolic blood pressure 147 mm[Hg] Gwyn Cam [facility] 08-31-2022 04:00-0500 Promise to Return Gwyn Cam [facility] 08-31-2022 00:24-0500 Blood Pressure Location Gwyn Garcia [facility] 08-31-2022 00:24-0500 Body temperature 98.06 [degF] Gwyn Garcia [facility] 08-31-2022 00:24-0500 Mean blood pressure 96 mm[Hg] Gwyn Garcia [facility] 08-31-2022 00:24-0500 Mean blood pressure 105 mm[Hg] Gwyn Garcia [facility] 08-31-2022 00:24-0500 Respiratory rate 15 /min Gwyn Cam [facility] 08-30-2022 20:04-0500 Body temperature 97.7 [degF] Gwyn Garcia [facility] 08-30-2022 14:25-0500 Body temperature 96.98 [degF] Gwyn Garcia [facility] 08-30-2022 14:25-0500 Respiratory rate 16 /min Gwyn Garcia [facility] 08-30-2022 14:15-0500 Respiratory rate 19 /min Gwyn Garcia [facility] 08-30-2022 14:00-0500 Respiratory rate 18 /min Gwyn Garcia [facility] 08-30-2022 13:46-0500 Body temperature 96.98 [degF] Gwyn Garcia [facility] 08-30-2022 10:01-0500 Heart rate 60 /min Gwyn Garcia [facility] 08-30-2022 09:59-0500 Body temperature 97.88 [degF] Gwyn Garcia [facility] Encounters Encounter Date Encounter Type Care Provider Facility Start: 05-23-2025 End: 05-23-2025 ambulatory Camille Williamson MD Work Phone: [facility] Work Phone: Start: 05-23-2025 End: 05-23-2025 Patient encounter procedure Camille Williamson MD -[facility] Work Phone: Start: 05-01-2025 End: 05-01-2025 ambulatory Camille Williamson MD Work Phone: [facility] Work Phone: Start: 05-01-2025 End: 05-01-2025 Patient encounter procedure Camille Williamson MD -[facility] Work Phone: Start: 05-01-2025 End: 05-01-2025 Patient encounter status Camille Williamson MD [place] Start: 03-27-2025 End: 03-27-2025 ambulatory GWYN GARCIA Not Available Start: 03-27-2025 End: 03-27-2025 Patient encounter procedure Gwyn Garcia DO Work Phone: [facility] Comment on above: History of left knee replacement (Primary Dx); History of total right knee replacement Start: 03-27-2025 End: 03-27-2025 ambulatory GWYN GARCIA Not Available Start: 03-07-2025 End: 03-07-2025 ambulatory Camille Williamson MD Work Phone: [facility] Work Phone: Start: 03-07-2025 End: 03-07-2025 Patient encounter procedure Camilel Williamson MD -[facility] Work Phone: Start: 02-25-2025 End: 02-25-2025 Office outpatient visit 25 minutes Heath Monroy DO Work Phone: [facility] Comment on above: Impaired propriocept ion (Primary Dx) Start: 02-25-2025 End: 02-25-2025 ambulatory HEATH MONROY Not Available Start: 02-25-2025 End: 02-25-2025 Bamboo flowsheet Heath Monroy DO Work Phone: [facility] Start: 02-25-2025 End: 02-25-2025 Bamboo flowsheet Heath Monroy DO Work Phone: [facility] Start: 02-25-2025 End: 02-25-2025 Patient encounter status Heath Monryo DO Work Phone: [facility] Start: 02-20-2025 End: 02-20-2025 Bamboo flowsheet Nabila Baird AUD Work Phone: [facility] Start: 02-20-2025 End: 02-20-2025 Bamboo flowsheet Nabila Baird AUD Work Phone: [facility] Start: 02-20-2025 End: 02-20-2025 Patient encounter procedure Nabila Baird AUD Work Phone: [facility] Comment on above: Sensorineural hearin g loss, bilateral (Primary Dx); Dizziness Start: 02-20-2025 End: 02-20-2025 ambulatory NABILA BAIRD Not Available Start: 02-14-2025 End: 02-14-2025 Patient encounter procedure Camille Williamson MD -[facility] Work Phone: Start: 10-30-2024 End: 10-30-2024 Office outpatient new 30 minutes Alma Kay DO Work Phone: [facility] Comment on above: PMB (postmenopausal bleeding) (Primary Dx); Screening for malignant neoplasm of cervix; Encounter for screening for human papillomavirus (HPV); Intertriginous candidiasis; Obesity, morbid (CMS/HCC); Post-menopause; Abnormal uterine bleeding Start: 10-30-2024 End: 10-30-2024 ambulatory ALMA KAY Not Available Start: 09-24-2024 End: 09-24-[address] [facility] Work Phone: Start: 09-24-2024 End: 09-24-2024 Patient encounter procedure [facility] Work Phone: Start: 07-27-2024 Non-patient / Non-visit [facility] Work Phone: Start: 06-05-2024 End: 06-05-[address] [facility] Work Phone: Start: 06-05-2024 End: 06-05-2024 Patient encounter procedure [facility] [facility] Work Phone: Start: 05-31-2024 End: 05-31-2024 ambulatory Robertoad Aguayo SACK FILLER [facility] Comment on above: Weakness of both low er extremities (Primary Dx) Start: 05-31-2024 End: 05-31-2024 Bamboo flowsheet Roberto Dede [facility]ER [facility] Start: 05-31-2024 End: 05-31-2024 Bamboo flowsheet Roberto Dede [facility] Start: 05-29-2024 End: 05-30-2024 ambulatory Roberto Dede [facility] Comment on above: Weakness of both low er extremities (Primary Dx) Start: 05-29-2024 End: 05-29-2024 Bamboo flowsheet Ilene Cha PT [facility] Start: 05-29-2024 End: 05-29-2024 Bamboo flowsheet Ilene Cha PT [facility] Start: 05-24-2024 End: 05-24-2024 ambulatory Roberto Dede [facility] Comment on above: Weakness of both low er extremities (Primary Dx) Start: 05-23-2024 End: 05-23-2024 Office outpatient visit 15 minutes Princess Brown DO Work Phone: [facility] Comment on above: Weakness of both low er extremities (Primary Dx); Idiopathic peripheral neuropathy; Ataxia; Paresthesias; Debility Start: 05-23-2024 End: 05-23-2024 ambulatory PRINCESS BROWN Not Available Start: 05-23-2024 End: 05-23-2024 Bamboo flowsheet Princess Brown DO Work Phone: [facility] Start: 05-23-2024 End: 05-23-2024 Bamboo flowsheet Princess Brown DO [facility] Start: 05-22-2024 End: 05-22-2024 ambulatory Roberto Aguayo SACK [facility] Comment on above: Weakness of both low er extremities (Primary Dx) Start: 05-22-2024 End: 05-22-2024 Bamboo flowsheet Roberto Aguayo SACK FILLER [facility] Start: 05-22-2024 End: 05-22-2024 Bamboo flowsheet Roberto Aguayo SACK [facility]ILLER [facility] Start: 05-22-2024 End: 05-22-[address] [facility] Work Phone: Start: 05-22-2024 End: 05-22-2024 Patient encounter procedure [facility] Work Phone: Start: 05-19-2024 Non-patient / Non-visit [facility] Work Phone: Start: 05-17-2024 End: 05-17-2024 ambulatory Roberto Aguayo SACK FILLER [facility] Comment on above: Weakness of both low er extremities (Primary Dx) Start: 05-17-2024 End: 05-17-2024 Bamboo flowsheet Roberto Aguayo SACK FILLER [facility] Start: 05-17-2024 End: 05-17-2024 Bamboo flowsheet Roberto Aguayo SACK FILLER [facility] Start: 05-16-2024 Patient encounter status [facility] Start: 05-15-2024 End: 05-15-2024 ambulatory Roberto Aguayo SACK F[facility]ER [facility] Comment on above: Weakness of both low er extremities (Primary Dx) Start: 05-15-2024 End: 05-15-2024 Bamboo flowsheet Roberto Aguayo SACK FILLER [facility] Start: 05-15-2024 End: 05-15-2024 Bamboo flowsheet Roberto Aguayo SACK FILLER [facility] Start: 05-10-2024 End: 05-10-2024 ambulatory Ilene Cha PT [facility] Comment on above: Weakness of both low er extremities (Primary Dx) Start: 05-10-2024 End: 05-10-2024 Bamboo flowsheet Ilene Cha PT [facility] Start: 05-10-2024 End: 05-10-2024 Bamboo flowsheet Ilene Cha PT [facility] Start: 05-08-2024 End: 05-08-2024 ambulatory Ilene Cha PT [facility] Comment on above: Weakness of both low er extremities (Primary Dx) Start: 05-08-2024 End: 05-08-2024 Bamboo flowsheet Ilene Cha PT [facility] Start: 05-08-2024 End: 05-08-2024 Bamboo flowsheet Ilene Cha PT [facility] Start: 05-03-2024 End: 05-03-2024 ambulatory Ilene Cha PT [facility] Comment on above: Weakness of both low er extremities (Primary Dx) Start: 05-03-2024 End: 05-03-2024 Bamboo flowsheet Ilene Cha PT [facility] Start: 05-03-2024 End: 05-03-2024 Bamboo flowsheet Ilene Cha PT [facility] Start: 05-01-2024 End: 05-01-2024 ambulatory Ilene Cha PT [facility] Comment on above: Weakness of both low er extremities (Primary Dx) Start: 05-01-2024 End: 05-01-2024 Bamboo flowsheet Ilene Cha PT [facility] Start: 05-01-2024 End: 05-01-2024 Bamboo flowsheet Ilene Cha PT [facility] Start: 04-26-2024 End: 04-26-2024 ambulatory Roberto Aguayo SACK FILLER [facility] Comment on above: Weakness of both low er extremities (Primary Dx) Start: 04-26-2024 End: 04-26-2024 Bamboo flowsheet Roberto Aguayo SACK FILLER [facility] Start: 04-26-2024 End: 04-26-2024 Bamboo flowsheet Roberto Aguayo [facility]ER [facility] Start: 04-24-2024 End: 04-24-2024 Bamboo flowsheet Roberto Aguayo [facility]ER [facility] Start: 04-24-2024 End: 04-24-2024 Bamboo flowsheet Roberto Aguayo [facility]ER [facility] Start: 04-24-2024 End: 04-24-2024 ambulatory Roberto Aguayo [facility] Comment on above: Weakness of both low er extremities (Primary Dx) Start: 04-18-2024 End: 04-18-2024 Bamboo flowsheet Ilene Cha PT [facility] Start: 04-18-2024 End: 04-18-2024 Bamboo flowsheet Ilene Cha PT [facility] Start: 04-18-2024 End: 04-18-2024 ambulatory Ilene Cha PT [facility] Comment on above: Weakness of both low er extremities (Primary Dx) Start: 04-16-2024 End: 04-16-2024 ambulatory Roberto Aguayo SACK FILLER [facility] Comment on above: Weakness of both low er extremities (Primary Dx) Start: 04-13-2024 End: 04-13-2024 ambulatory ROBERTO DEDE Not Available Start: 04-10-2024 End: 04-10-2024 ambulatory ILENE CHA Not Available Start: 2024 End: [address] [facility] Work Phone: Start: 2024 End: 2024 Patient encounter procedure [facility] Work Phone: Start: 01-10-2024 Non-patient / Non-visit [facility] Work Phone: Start: 12-19-2023 Non-patient / Non-visit [facility] Work Phone: Start: 09-24-2023 End: 09-24-2023 ambulatory Camille Williamson Other [employer] Other Start: 09-24-2023 Telephone encounter Camille Williamson [facility] Start: 06-16-2023 End: 06-16-2023 ambulatory Camille Williamson Other [employer] Other Start: 06-16-2023 Telephone encounter Camille Williamson [facility] Start: 05-20-2023 End: 05-20-2023 ambulatory Camille Williamson Other [employer] Other Start: 05-20-2023 Office outpatient vi sit 15 minutes Camille Williamson [facility] Start: 04-29-2023 End: 04-29-2023 ambulatory Camille Williamson Other [employer] Other Start: 04-29-2023 Telephone encounter Camille Williamson [facility] Start: 04-28-2023 End: 04-28-2023 ambulatory Camille Williamson Other [employer] Other Start: 04-28-2023 Office outpatient vi sit 15 minutes Camille Williamson [facility] Start: 04-25-2023 End: 04-25-2023 ambulatory Camille Williamson Other [employer] Other Start: 04-25-2023 Telephone encounter Camille Williamson [facility] Start: 02-21-2023 End: 02-21-2023 ambulatory Camille Williamson Other [employer] Other Start: 02-21-2023 Office outpatient vi sit 15 minutes Camille Williamson [facility] Start: 12-13-2022 End: 12-14-2022 Evaluation and management of inpatient Gwyn Garcia Facility:[facility] Start: 10-14-2022 End: 10-14-2022 ambulatory Camille Williamson Other [employer] Other Start: 10-14-2022 Telephone encounter Camille Williamson [facility] Start: 09-16-2022 End: 09-16-2022 ambulatory Camille Williamson Other [employer] Other Start: 09-16-2022 Office outpatient vi sit 15 minutes Camille Williamson [facility] Start: 09-01-2022 End: 09-01-2022 ambulatory Camille Williamson Other [employer] Other Start: 09-01-2022 Telephone encounter Camille Williamson [facility] Start: 08-31-2022 End: 08-31-2022 ambulatory Camille Williamson Other [employer] Other Start: 08-31-2022 Telephone encounter Camille Williamson [facility] Start: 08-30-2022 End: 08-31-2022 Evaluation and management of inpatient Gwyn Garcia Facility:[facility] Start: 08-30-2022 End: 08-31-2022 Evaluation and management of inpatient Gwyn Garcia [facility] Start: 08-06-2022 End: 08-07-2022 ambulatory Gwyn Garcia Facility:[facility] Start: 05-20-2022 End: 05-21-[address] CAMILLE WILLIAMSON Facility: Procedures Date Procedure Procedure Detail Performing Clinician Start: 03-27-2025 Radiologic examination knee 3 views Gwyn Garcia DO Work Phone: Start: 03-27-2025 Radiologic examination knee 3 views Gwyn Garcia DO Work Phone: Start: 02-20-2025 AUDITORY FUNCTION TESTS Nabila Baird AUD Work Phone: Start: 10-30-2024 ENDOMETRIAL BIOPSY Alma Mims Work Phone: Start: 04-20-2023 History of operative procedure on knee History of left knee replacement Roberto Aguayo SACK FILLER Start: 08-30-2022 Total knee replacement Gwyn Garcia Breast cancer screen ing declined Breast cancer screening declined Camille Williamson MD Work Phone: Breast cancer screen ing declined Breast cancer screening declined Camille Williamson MD section Gwyn flowers Cholecystectomy Gwyn Lorraine greco History of operative procedure on knee History of left knee replacement Gwyn Garcia DO Work Phone: Lumpectomy of breast Gwyn Garcia Tympanotomy Gwyn Garcia Plan of Treatment Date Care Activity Detail Author Start: 04-29-2025 Influenza vaccination Influenza Vacc ine (#1) [facility] Start: 03-13-2025 End: 03-13-2025 Patient encounter procedure 03/13/2025 11:00 AM EDT Office Visit [facility] [address] [place] [address] Gwyn Gacria, DO [address] [place] [address] [facility] Start: 02-25-2025 End: 02-25-2025 [facility] Comment on above: Arrived Start: 02-20-2025 End: 02-20-2025 Patient encounter procedure 02/20/2025 10:30 AM EDT Office Visit [facility] [address] [facility] [place] [id number] Nbaila Baird, AUD [address] [facility] [place] [address] [facility] Comment on above: Arrived Start: 12-05-2024 End: 12-05-2024 Patient encounter procedure 12/05/2024 10:30 AM EDT Office Visit [facility] [address] [place] [address] Gwyn Garcia, DO [address] [place] [address] [facility] Start: 11-06-2024 End: 11-06-2024 Patient encounter procedure [facility] Start: 09-24-2024 Patient referral [facility] Work Phone: Start: 05-31-2024 End: 05-31-2024 ambulatory [facility] Comment on above: Arrived Start: 05-29-2024 End: 05-29-2024 ambulatory [facility] Comment on above: Arrived Start: 05-24-2024 End: 05-24-2024 ambulatory 05/24/2024 2:30 PM EDT Treatment [facility] [address] [facility] [address] [place] [address] Roberto Aguayo PTA [facility] Start: 05-23-2024 End: 05-23-2024 Patient encounter procedure [facility] Comment on above: Arrived Start: 05-22-2024 End: 05-22-2024 ambulatory [facility] Comment on above: Weakness of both low er extremities (Primary Dx) Start: 05-17-2024 End: 05-17-2024 ambulatory [facility] Comment on above: Arrived Start: 05-15-2024 End: 05-15-2024 ambulatory [facility] Comment on above: Arrived Start: 05-10-2024 End: 05-10-2024 ambulatory [facility] Comment on above: Arrived Start: 05-08-2024 End: 05-08-2024 ambulatory [facility] Comment on above: Arrived Start: 05-03-2024 End: 05-03-2024 ambulatory [facility] Comment on above: Arrived Start: 05-01-2024 End: 05-01-2024 ambulatory [facility] Comment on above: Arrived Start: 04-29-2024 Influenza vaccination Influenza Vacc ine (#1) [facility] Start: 04-26-2024 End: 04-26-2024 ambulatory [facility] Comment on above: Arrived Start: 04-24-2024 End: 04-24-2024 ambulatory [facility] Comment on above: Arrived Start: 04-18-2024 End: 04-18-2024 ambulatory [facility] Comment on above: Arrived Start: 2019 Pneumococcal Vaccine : 65+ Years (2 of 2 - PCV) Pneumococcal Vaccine: 65+ Years (2 of 2 - PCV) [facility] Start: 06-30-2009 Pneumococcal Vaccine : 65+ Years (2 of 2 - PCV) Pneumococcal Vaccine: 65+ Years (2 of 2 - PCV) [facility] Start: 1994 Screening for malign ant neoplasm of breast Mammogram [facility] Start: 1954 Screening for malign ant neoplasm of colon [facility] Comprehensive metabo lic 2000 panel - Serum or Plasma [facility] Endometrial biopsy Endometrial b iopsy Pathology and Cytology Routine PMB (postmenopausal bleeding) Ordered: 10/30/2024 [facility] Work Phone: Comment on above: Ordered: 10/30/2024 MR Unspecified body region [facility] Patient referral [facility] Work Phone: THINPREP TIS PAP AND HPV MRNA E6/E7 WITH REFLEX TO HPV 16,18/45 THINPREP TIS PAP AND HPV MRNA E6/E7 WITH REFLEX TO HPV 16,18/45 Pathology and Cytology Routine Screening for malignant neoplasm of cervix Encounter for screening for human papillomavirus (HPV) Ordered: 10/30/2024 [facility] Comment on above: Ordered: 10/30/2024 [facility] Immunizations Immunization Date Immunization Notes Care Provider Chevy sánchez 05-01-2025 influenza, high dose seasonal, preservative-free Camille Williamson MD Work Phone: [facility] 04-26-2024 influenza, high dose seasonal, preservative-free Heath Monroy DO Work Phone: [facility] 04-26-2024 influenza virus vaccine, unspecified formulation Gwyn Garcia DO Work Phone: [facility] 05-16-2023 Influenza, Seasonal, Quadrivalent, Adjuvanted Heath Monroy DO Work Phone: [facility] 09-18-2023 influenza virus vaccine, unspecified formulation Roberto Aguayo [facility] 06-12-2020 influenza virus vaccine, split virus (incl. purified surface antigen) Camille Williamson Other [employer] Other 06-12-2020 influenza virus vaccine, unspecified formulation [facility] 06-12-2020 Seasonal trivalent influenza vaccine, adjuvanted, preservative free Heath Monroy DO Work Phone: [facility] 06-30-2008 pneumococcal polysaccharide vaccine, 23 valent Roberto Aguayo [facility] Payers Date Payer Category Payer [employer] ( and others) FOR LIFE [id number] 2024-Present [address] [id number] 2024 () Member Subscriber Plan / Payer (Effective 2024-Present) Name: Ceci Spears Relation to Subscriber: Self Name: Ceci Spears Payer ID: [id number] (NAIC) Group ID: Not on file Type: Not on file Address: [place] [id number] 2024 [employer] ( and others) [id number] 2022 Medicare [id number] 2019 Medicare [id number] 2016 [facility] er [id number] 2016 Unknown BCBS BCBS [id number] 2016-Present [phone] [address] [place] [address] [id number] 1959 Medicare [id number] 1959 Unknown [id number] 1954 Unknown [id number] 2.16.840.1.467831.3.579.2 .593 1954 Unknown [id number] 2.16.840.1.480416.3.579.2 .72 1954 Unknown [id number] 2.16.840.1.596204.3.579.2 .727 1954 Unknown [id number] 2.16.840.1.091513.3.579.2 .727 1954 Unknown [id number] 2.16.840.1.937705.3.579.2 .9 1954 Unknown [id number] 2.16.840.1.929718.3.579.2 .1259 1954 Unknown [id number] 2.16.840.1.816654.3.579.2 .1259 1954 Unknown [id number] 2.16.840.1.118865.3.579.2 .125 1954 Unknown [id number] 2.16.840.1.683412.3.579.2 .1259 1954 Unknown [id number] 2.16.840.1.003882.3.579.2 .1259 1954 Unknown [id number] 2.16.840.1.644983.3.579.2 .1258 1954 Unknown [id number] 2.16.840.1.697213.3.579.2 .1258 1954 Unknown [id number] 2.16.840.1.681953.3.579.2 .1258 1954 Unknown [id number] 2.16.840.1.812432.3.579.2 .1258 1954 Unknown [id number] 2.16.840.1.164343.3.579.2 .1258 1954 Unknown [id number] 2.16.840.1.812250.3.579.2 .1258 1954 Unknown [id number] 2.16.840.1.139287.3.579.2 .1258 1954 Unknown [id number] 2.16.840.1.644870.3.579.2 .1258 1954 Unknown [id number] 2.16.840.1.075129.3.579.2 .1258 1954 Unknown [id number] 2.16.840.1.805306.3.579.2 .1258 1954 Unknown [id number] 2.16.840.1.938783.3.579.2 .1258 1954 Unknown [id number] 2.16.840.1.119884.3.579.2 .1258 1954 Unknown [id number] 2.16.840.1.535784.3.579.2 .1258 1954 Unknown [id number] 2.16.840.1.231137.3.579.2 .1258 1954 Unknown [id number] 2.16.840.1.061824.3.579.2 .1258 1954 Unknown [id number] 2.16.840.1.808453.3.579.2 .1259 1954 Unknown [id number] 2.16.840.1.287056.3.579.2 .1259 Social History Date Type Detail Facility Tobacco smoking status [facility] Start: 05-23-2024 End: 02-25-2025 Sex Assigned At Female [facility] Start: 04-20-2023 End: 2024 Tobacco smoking status [facility] Never smoked tobacco (finding) [facility] Start: 1955 Sex Assigned At Female F [facility] Start: 04-20-2023 Tobacco use and exposure Smokeless tobacco non-user [facility] Start: 05-23-2024 End: 03-27-2025 Alcoholic beverage intake Lifetime non-drinker (finding) [facility] Start: 05-23-2024 End: 02-25-2025 History of Social function [facility] Start: 05-02-2023 Alcohol Comment caffeine intak e: 1-2 cups per day [facility] Start: 1955 Sex assigned at Not on file N [facility] Start: 09-24-2024 End: 09-24-2024 Sex Female (finding) [facility] Medical Equipment Procedure Code Equipment Code Equipment Origin al Text Equipment Identifier Dates KNEE TOTAL ARTHROPLASTY Gwyn Garcia DO 08/30/22 Non Biological Knee R {[id number] [facility] Start: 08-30-2022 Clinical Notes 08-25-2022 to 03-27-2025 Gywn Garcia DO - 03/27/2025 10:30 AM EDT Note Date & Type Note Facility 03-27-2025 History of Presen t illness Narrative Post op bilateral TKA annual visit: The patient is seen and evaluated for annual total knee arthroplasty visit. Did well with the hospital stay. No anesthesia problems reported. Happy with the care provided by staff, physical therapy and our office. Pain is appropriately controlled. Denies chest pain or shortness of breath or palpitations. Doing PT for balance and deconditioning at [place]. Physical Exam: The total knee is clean, dry and intact. Mild swelling as expected. Has a stable arc of motion without mechanical symptoms. No instability of the prosthesis. No rash, infection or DVT. The calf is supple. Gait is assisted with stiffness with mild antalgic component. Image Results: Xrays taken in the office today saved to the permanent record, AP, sunrise and lateral weightbearing films, show stable position and alignment of the bilateral TKA prosthesis. No sign of loosening, fracture or infection. Assessment: S/P bilateral total knee arthroplasty-annual post-operative visit Treatment Plan: The nature of the findings were discussed at length. Continuance of regular exercise, weight management and fall precautions reviewed. [facility]CI antibiotic prophylaxis for dental or invasive work were reviewed. Numerous questions were answered. Follow-up in 1 year for repeat xray and exam, sooner if concerned. The patient is discharged in stable condition. documented in this encounter [facility] 03-07-2025 Evaluation note Diagnosis Onset Date Resolution Impairment of balance acute Feb 3:03pm Weakness acute March 07 3:03pm Breast cancer screening declined acute May 01, 2 025 11:20am Essential hypertension acute Se pt2024 11:20am Hypothyroidism (acquired) acute May 01, 025 11:20am Wellness examination acute Apr 11:20am [facility] Work Phone: 1(656) 852-577406-30-2025 History of Present illness Narrative* Heath Monroy DO - 02/25/2025 2:45 PM EDT Subjective Patient ID: [id number] 70-year-old female known to myself. She is accompanied by her sister. Patient has a moderate to severe sloping sensorineural hearing loss. The problem however is her balance. She and her sister tell me that ever since she had her bilateral knee replacements a year ago she has had issues with falling backwards despite using a walker. Apparently has had an extensive workup by Neurology that found nothing, orthopedic surgeon did not think it was due to her surgery. Hall[place] maneuver done here is absolutely normal. Never saw the primary care physician for this. Audiogram is as above. Review of Systems ROS The specialty specific review of systems is noncontributory except for that recorded in the intake questionnaire and /or described in the history of present illness. Objective ENT Physical Exam Physical Exam Constitutional: Appearance: Normal appearance. HENT: Head: Atraumatic. Ears: External ear shows no abnormality Bilateral ear canals are clear Tympanic membranes intact, no evidence of middle ear fluid or other pathology. Nose: External nose appears to be normal Nares patent. Septal deviation to the left No evidence of polyp, mass or pus bilaterally. Oral Cavity: No evidence of trismus Lips appear normal Dental good Tongue of normal size and configuration, floor of mouth mucosa clear. Buccal mucosa shows no evidence of ulceration, mass or other abnormality Hard palate soft palate mucosa intact with no evidence of mass, ulceration or other abnormality Uvula of normal size and configuration Oropharynx: Tonsils Posterior pharyngeal wall Neck: No evidence of palpable abnormality Thyroid without evidence of thyromegaly or mass. No cervical lymphadenopathy present. Cardiovascular: Rate and Rhythm: Normal rate and regular rhythm. . Skin: General: Skin is warm and dry. Neurological: General: No focal deficit present. Mental Status: alert and oriented to person, place, and time. Assessment/Plan Ceci was seen today for imbalance. Diagnoses and all orders for this visit: Impaired proprioception (Primary) Comments: The patient's balance disorder is secondary to proprioceptive imbalance from her knee surgery. Thishas nothing to do with her inner ear. I explained that to the patient and her sister. I have asked him to returned the primary care physician and I would suggest physical medicine and rehab referral and intensive physical therapy. I willsee her back as needed [id number] History of Present illness Narrative* DESTINY Guevara - 02/20/2025 10:30 AM EDT History: Patient was referred for an audiological evaluation, reporting concerns with balance. Pt reported problems have been ongoing for years. Pt reported unsteadiness while walking. Patient reported no concerns with hearing sensitivity today. She denies symptoms of tinnitus or ear pain. Pt has a history of middle ear problems where tubes were placed in the past. History is negative for noise exposure. Otoscopic Exam: Revealed ear canals were clear from excessive cerumen, bilaterally. Pure Tone Audiometry Audio indicated essentially a mild to severe sensorineural hearing loss, bilaterally. Today's audiois consistent with previous results recorded 05-03-2023. Speech Audiometry Right SRT = 30 dB and word discrimination score at 60 dBHL = 100% Left SRT = 30 dB and word discrimination score at 60 dBHL = 100% Tympanometry Normal tympanograms, bilaterally, indicating normal middle ear function Impressions: Dr. Monroy 02-25-2025 documented in this [facility]06-19-2025 Evaluation note* Diagnosis Onset Date Resolution Status Admit Date Contact dermatitis due to soap acute February 14, 2025 2:27pm [facility] Work Phone: 1(792) 720-496606-19-2025 Evaluation note* Diagnosis Onset Date Resolution Status Admit Date Contact dermatitis due to soap acute February 14, 2025 2:27pm Impairment of balance acute Feb 3:03pm Weakness acute March 07 3:03pm Essential hypertension acute pt2024 11:20am Hypothyroidism (acquired) acute May 01, 2025 11:20am Wellness examination acute Apr 11:20am [facility] Work Phone: 1(101) 449-974603-04-2025 History of Present illness Narrative* Alma Kay, DO - 10/30/2024 1:30 PM ESTAssociated Order(s): Endometrial biopsy Post-Procedure Diagnose(s): PMB (postmenopausal bleeding); Obesity, morbid (CMS/HCC); Abnormal uterine bleeding Images from the original note were not included. Subjective Ceci Spears is a 69 y.o. female HPI Chief Complaint Patient presents with sick visit New patient referred by Dr. Camille Williamson for PMB. Patient reports that she noticed bright red bloodin the beginning of 04/2024 that has been intermittent. She noticed another episode of bright bleeding on 10/01/24 until the end of September. Reports she seen 2 blood clot the first week of September. Denies bleeding today. Urine sample collected. Last pap long time ago. Past Medical History: Diagnosis Date Arthritis Breast cancer (CMS/HCC) Hypertension (CMS/HCC) Hypothyroid (CMS/HCC) Past Surgical History: Procedure Laterality Date BREAST LUMPECTOMY Right 2007 SECTION, LOW TRANSVERSE 1981; 1984 CHOLECYSTECTOMY 2002 NASAL ENDOSCOPY 10/22/2019 with bilateral tympanostomy with tube insertion TOTAL KNEE ARTHROPLASTY Left 12/13/2022 [facility] TOTAL KNEE ARTHROPLASTY Right 08/30/2022 [facility] VAGINAL DELIVERY x2 Family History Problem Relation Name Age of Onset Diabetes Mother Hypertension Mother Heart disease Mother Pancreatic cancer Father Cancer Maternal Grandmother Cancer Paternal Grandfather Social History Tobacco Use Smoking status: Never Smokeless tobacco: Never Substance Use Topics Alcohol use: Never Comment: caffeine intake: 1-2 cups per day Drug use: Never OB History Para Term AB Living 4 4 SAB IAB Ectopic Multiple Live Births # Outcome Date GA Lbr Bj/2nd Weight Sex Type Anes PTL Lv 4 Para 3 Para 2 Para 1 Para No Known Allergies Current Outpatient Medications on File Prior to Visit Medication Sig Dispense Refill levothyroxine (Synthroid, Levoxyl) 137 MCG tablet Take 137 mcg by mouth in the morning. metoprolol succinate XL (Toprol-XL) 25 MG 24 hr tablet Take 25 mg by mouth in the morning. venlafaxine XR (Effexor XR) 75 MG 24 hr capsule TAKE ONE CAPSULE BY MOUTH ONCE DAILY WITH FOOD FOR 30 DAYS No current facility-administered medications on file prior to visit. Review of Systems Constitutional: Negative for appetite change, chills, fever and unexpected weight change. Respiratory: Negative for shortness of breath. Cardiovascular: Negative for chest pain. Gastrointestinal: Negative for abdominal pain, constipation, diarrhea, nausea and vomiting. Genitourinary: Positive for vaginal bleeding. Negative for dysuria, pelvic pain, vaginal discharge and vaginal pain. Neurological: Negative for dizziness and headaches. Objective BP 140/84 Wt 223 lb BMI 38.88 kg/m Physical Exam Constitutional: Appearance: Normal appearance. Genitourinary: No lesions in the vagina. Right Labia: No lesions. Left Labia: No lesions. Vaginal bleeding (moderate to heavy bleeding noted coming from the uterus) present. No vaginal discharge. Moderate vaginal atrophy present. Right Adnexa: not tender and no mass present. Left Adnexa: not tender and no mass present. No cervical lesion. Uterus is not tender. Uterus exam comments: Unable to fully assess secondary to body habitus. Abdominal: Palpations: Abdomen is soft. Comments: Obese Neurological: Mental Status: She is alert. Skin: General: Skin is warm and dry. Findings: Rash (under pannus with slight induration) present. Psychiatric: Mood and Affect: Mood normal. Patient ID: Ceci Spears is a 69 y.o. female. Endometrial biopsy Date/Time: 10/30/2024 3:33 PM Performed by: Alma Kay DO Authorized by: Alma Kay DO Consent: Consent obtained: verbal Consent given by: patient Risks discussed: bleeding, pain and infection Alternatives discussed: observation Patient agrees, verbalizes understanding, and wants to proceed: yes Indications: Indications: postmenopausal bleeding Chronicity of post-menopausal bleeding: recurrent Progression of post-menopausal bleeding: worsening Pre-procedure: Urine test: N/A Anesthesia premedication: None. Procedure: A bimanual exam was performed: yes Uterus position: anteverted Prepped with: Betadine Tenaculum used: yes A local block was performed: no Local anesthetic: none Cervix dilated: no Number of passes: 6 Findings: Cervix: normal Uterus depth by sound (cm): 10 Specimen collected: specimen collected and sent to pathology Patient tolerance: tolerated well, no immediate complications Assessment/Plan 1. PMB (postmenopausal bleeding) (Primary) Discussed findings on exam today. Endometrial biopsy and pap-smear performed. Discussed with patient that highly suspicious for endometrial malignancy. Patient voiced understanding. Will notify patient of results. - Endometrial biopsy 2. Screening for malignant neoplasm of cervix Cervical cytology and co-testing performed. Patient to contact the office for results - THINPREP TIS PAP AND HPV MRNA E6/E7 WITH REFLEX TO HPV 16,18/45 3. Encounter for screening for human papillomavirus (HPV) - THINPREP TIS PAP AND HPV MRNA E6/E7 WITH REFLEX TO HPV 16,18/45 4. Intertriginous candidiasis Discussed findings. Nystatin powder Rx sent to pharmacy - nystatin (Mycostatin) 595883 UNIT/GM powder; Apply topically 3 (three) times a day To affected area as needed Dispense: 30 g; Refill: 1 5. Obesity, morbid (CMS/HCC) 6. Post-menopause documented in this encounterCrittenton [facility] [id number] Hospital Discharge instructionsAmbulatory Orders* Referral to [facility] Time Frame: 09/24/24, Location: None [facility] Work Phone: 1(745) 471-278509-25-2024 History of Present illness Narrative* Princess Brown, DO - 05/23/2024 4:00 PM EDT Chief Complaint Patient presents with Extremity Weakness balance difficulty Subjective Ceci Diggs Yarelisaugie, 69 y.o., female is here for a follow up for weakness. HPI Patient is seen today for a follow-up to weakness and paresthesia. She states her weakness is doingthe same. She does not notice and improvement at home. She did get timed and testing at PT and was told she is moving faster and has gotten stronger, she does not notice the improvement. She denies numbness and tingling. She denies burning sensation. Weakness is worst in the legs. She has had 2 falls, she uses her walker [employer]. She doesn't have a lot of room in her kitchen to use it. So she fell in the kitchen. She did not hurt herself. She is doing her exercises 7 days a week for about 30 minutes. She is up a good part of the day. She has the bands but she has no directions on what to do with them. Past Medical History: Diagnosis Date Arthritis Breast cancer (CMS/HCC) Hypertension (CMS/HCC) Hypothyroid (CMS/HCC) Past Surgical History: Procedure Laterality Date BREAST LUMPECTOMY Right 2007 SECTION, LOW TRANSVERSE 1981; 1984 CHOLECYSTECTOMY 2003 NASAL ENDOSCOPY 10/22/2019 with bilateral tympanostomy with tube insertion TOTAL KNEE ARTHROPLASTY Left 12/13/2022 [facility] TOTAL KNEE ARTHROPLASTY Right 08/30/2022 [facility] Family History Problem Relation Name Age of Onset Diabetes Mother Hypertension Mother Heart disease Mother Pancreatic cancer Father Cancer Maternal Grandmother Cancer Paternal Grandfather Social History Tobacco Use Smoking status: Never Smokeless tobacco: Never Substance Use Topics Alcohol use: Never Comment: caffeine intake: 1-2 cups per day Allergies: Patient has no known allergies. General: No fever or chills HEENT: No nasal congestion or runny nose Pulmonary: No shortness of breath or cough Cardiovascular: No chest pain or palpitations GI: No nausea or vomiting : No dysuria or hematuria Musculoskeletal: No new aches or pains or muscle weakness Infectious: no recurrent fevers or infections Dermatologic: No rashes or skin lesions Neurologic: No new headaches or dizziness other than in HPI Vitals: 05/23/24 1600 BP: 128/84 Body mass index is 40.45 kg/m . weight: 232 lb Neurologic exam: Mental status: Awake, alert to person, place and time. Recent and remote memory are intact. Attention and concentration are normal. Fund of knowledge is appropriate for level of education. HEENT: NC/AT Cranial nerves: CN II: Visual acuity is normal. Visual aiken full to confrontation. CN III, IV, : pupils equal round and reactive to light. Extraocular movements intact. No ptosis present. CN V: Facial sensation is normal. CN VII: Full and symmetric facial movement. CN VIII: Hearing is normal to finger rub bilaterally: CN IX and X: Palate elevates symmetrically. Normal gag reflex. CN XI: Shoulder shrug is normal bilaterally. CN XII: Tongue is midline without atrophy or fasciculation. Speech: Clear and fluent no aphasia or dysarthria Pronator drift: Negative bilateral upper extremity Coordination: Intact, no signs of dysmetria Good finger to nose and rapid alternating movements Sensory: Sensation is intact to light, temperature and vibratory touch throughout four extremities except mild decrease in vibratory in stocking distribution Motor: LUE 5/5 RUE 5/5 LLE 4/5 RLE 4/5 Tone: Physiologic, no tremor, bradykinesia or rigidity DTR: Peter Biceps, BR 3/4 Peter Patellar 1/4 No clonus No spasticity Gait: Was Able to get up easier from the chair using walker for stability Romberg's Positive Review and summary of old records: Assessment/Plan Diagnoses and all orders for this visit: Weakness of both lower extremities Idiopathic peripheral neuropathy Ataxia Paresthesias Debility 69-year-old female with weakness and difficulty with gait and balance. She has some ataxia and bilateral lower extremity weakness. She has some bilateral upper extremity hyperreflexia. Patient had anEMG that showed bilateral lower extremity sensory neuropathy but no significant motor neuropathy. She had an MRI of the cervical spine that did show some multilevel degenerative disc disease but no cord compression. She had B12 folic acid TSH that were normal and her hemoglobin A1c was 5.9. I suspect her neuropathy is more idiopathic. To do physical therapy and reportedly there was an improvement. She does not overall feel an improvement. She is exercising more than she was previously but talia pyle could do more. She has had a couple of falls but is typically when she does not have her walkerwith her. I suspect much of this is from debility and weakness from her underlying orthopedic issues. WORK UP: EMG showed sensory neuropathy B12 folic acid TSH were normal SPEP was normal Hemoglobin A1c 5.9 Plan I did explain to her that much of what she gets out of it is what she puts into it. Then more she exercises the better she will do. It is up to her how much she exercises and puts into it. Continue with the home exercise program Use the walker If she does not have the walker she should at least have a cane and small spaces. She needs to be active at home up most of the day She was counseled unfortunately much of this she is going to have to do on her own. The diagnosis was all discussed with the patient. All questions were answered and they agreed with the treatment plan. Patient will call if there are any new issues or questions. Pt has been fully educated on their diagnosis, treatment options, follow up plan, and return instructions Return to clinic: 3 months documented in this encounterCrittenton Behavioral [id number] History of Present illness Narrative* Ilene Cha, PT - 05/08/2024 2:30 PM EDT Physical Therapy Treatment Visit Patient Name: Ceci Spears Today's Date: 05/08/2024 Encounter Diagnoses Name Primary? Weakness of both lower extremities Yes Visit number: 9 Timed Code Treatment Minutes: 41 minutes Total Treatment Time: 51 minutes Time In: 1422 Time Out: 1515 History: Pt states she has been having weakness in bilateral LE's ever since her knees were replaced. Pt states she falls all the time; looses her balance. Has a 4WW that she is using but states she is still falling. States she believes she has fallen about 20 times this year. Has 3 steps to enter/exit the home but does not try to do without someone else present. Precautions: FALLS, universal Subjective: Pt states she received her ankle weights in the mail and did her exercises already tomorrow. No complaints following last session. RTD 05/23/24. Pain: 310 Objective: PT Evaluation (04/10/2024) Functional Mobility: Reflexes: 1+ bilateral patellar and ankle; biceps, 3+ brachioradialis, 2+ Triceps Gait: TUG with use of 4WW: 25.88 seconds and 20.53 seconds; Ten Meter Walk Test: 8.84 seconds with 4WW Stairs: not tested Strength: Five Time Sit to Stand with hands on knees: 17.67 seconds. Bilateral hips 3+/5, quads 4-/5, ankles 4/5 Balance: Feet together eyes open 15 seconds, feet together eyes closed 2 seconds Special Test: Negative Babinski, Clonus, and Hoffmans Treatment: Education: HEP education with demonstration, Educated on Eval Findings and POC Manual Therapy: Passive ROM, Joint mobilization, Soft Tissue Mobilization, Myofascial Release, Muscle Energy Technique, Neural Mobilization, Myofascial Cupping, Dry Needling, IASTM, and Scar mobilization as needed. Therapeutic Exercise: (31 minutes) Nustep 10 minutes for strengthening. Strength, Endurance, Flexibility, ROM, HEP, Neural Mobilization, Power, and Core Stability as needed. Exercises per grid to increase bilateral LE strength. Continued to focus on standing ex and ambulation in order to improve functional mobility and strength. Therapeutic Activity: Exercises to improve dynamic activities, functional tasks, functional mobility to return to prior activity level as needed. Neuromuscular re-education: (10 minutes) Balance Training, Muscle Facilitation, Dynamic Stability, Core Stabilization, and Blood Flow Restriction Training (BFRT) as needed. Worked on transfering cones side to side in standing with focus on trunk rotation. Modalities: Heat, Ice, Electrical Stimulation, Ultrasound, Cervical Mechanical Traction, Lumbar Mechanical Traction, Iontophoresis, and Fluidotherapy as needed. Assessment: Pt has completed 9 PT sessions for strength and balance. Pt tolerates exercises well. Requires sitting rest breaks due to LE fatigue with prolong ambulation. Will continue. Outcome Measure: Lower Extremity Functional Scale (LEFS): 25/80 Rehab Diagnosis: bilateral LE weakness; falls; unsteady gait Short Term Goal: To be met in 2 weeks Goal 1: Pt to be instructed in home exercise program. Intermediate Goals: To be met in 10 weeks Goal 1: Pt to report independence and compliance with home program. Goal 2: Pt to complete TUG in less than 14.0 seconds indicating improved gait and mobility. Goal 3: Pt to complete Five Sit to Stands in less than 12.0 seconds with hands on knees indicating improved functional strength of LE's. Goal 4: Pt to score no less than 40/80 on LEFS indicating improved QOL. Goal 5: Pt to complete Ten Meter Walk Test in less than 6.0 seconds with 4WW indicating improved gait. Goal 6: Pt to maintain feet together eyes closed > 8 seconds indicating improved balance. Pt will benefit from skilled PT for 2x/week from 04/10/2024 to 06/19/2024 to address the above impairments. I hereby deem this POC medically necessary. Please sign below. Date: documented in this encounterCrittenton Behavioral [id number] History of Present illness Narrative* Ilene Cha PT - 05/03/2024 2:30 PM EDT Physical Therapy Treatment Visit Patient Name: Ceci Spears Today's Date: 05/03/2024 Encounter Diagnoses Name Primary? Weakness of both lower extremities Yes Visit number: 8 Timed Code Treatment Minutes: 41 minutes Total Treatment Time: 51 minutes Time In: 1424 Time Out: 1517 History: Pt states she has been having weakness in bilateral LE's ever since her knees were replaced. Pt states she falls all the time; looses her balance. Has a 4WW that she is using but states she is still falling. States she believes she has fallen about 20 times this year. Has 3 steps to enter/exit the home but does not try to do without someone else present. Precautions: FALLS, universal Subjective: Pt states she did better following last session vs the one prior. No complaints of soreness following last session. RTD 05/23/24. Pain: 3/10 Objective: PT Evaluation (04/10/2024) Functional Mobility: Reflexes: 1+ bilateral patellar and ankle; biceps, 3+ brachioradialis, 2+ Triceps Gait: TUG with use of 4WW: 25.88 seconds and 20.53 seconds; Ten Meter Walk Test: 8.84 seconds with 4WW Stairs: not tested Strength: Five Time Sit to Stand with hands on knees: 17.67 seconds. Bilateral hips 3+/5, quads 4-/5, ankles 4/5 Balance: Feet together eyes open 15 seconds, feet together eyes closed 2 seconds Special Test: Negative Babinski, Clonus, and Hoffmans Treatment: Education: HEP education with demonstration, Educated on Eval Findings and POC Manual Therapy: Passive ROM, Joint mobilization, Soft Tissue Mobilization, Myofascial Release, Muscle Energy Technique, Neural Mobilization, Myofascial Cupping, Dry Needling, IASTM, and Scar mobilization as needed. Therapeutic Exercise: (31 minutes) Nustep 10 minutes for strengthening. Strength, Endurance, Flexibility, ROM, HEP, Neural Mobilization, Power, and Core Stability as needed. Exercises per grid to increase bilateral LE strength. Resumed standing ex this date. Therapeutic Activity: Exercises to improve dynamic activities, functional tasks, functional mobility to return to prior activity level as needed. Neuromuscular re-education: (10 minutes) Balance Training, Muscle Facilitation, Dynamic Stability, Core Stabilization, and Blood Flow Restriction Training (BFRT) as needed. Added side and forward step and reach with CGA and use of chair. Modalities: Heat, Ice, Electrical Stimulation, Ultrasound, Cervical Mechanical Traction, Lumbar Mechanical Traction, Iontophoresis, and Fluidotherapy as needed. Assessment: Pt has completed 8 PT sessions for strength and balance. Progressed standing ex from last session. Pt able to perform 6 inch ant step up with one handrail; however, requires CG and occasional min A. Pt progressing well. Will continue. Outcome Measure: Lower Extremity Functional Scale (LEFS): 25 Rehab Diagnosis: bilateral LE weakness; falls; unsteady gait Short Term Goal: To be met in 2 weeks Goal 1: Pt to be instructed in home exercise program. Intermediate Goals: To be met in 10 weeks Goal 1: Pt to report independence and compliance with home program. Goal 2: Pt to complete TUG in less than 14.0 seconds indicating improved gait and mobility. Goal 3: Pt to complete Five Sit to Stands in less than 12.0 seconds with hands on knees indicating improved functional strength of LE's. Goal 4: Pt to score no less than 40/80 on LEFS indicating improved QOL. Goal 5: Pt to complete Ten Meter Walk Test in less than 6.0 seconds with 4WW indicating improved gait. Goal 6: Pt to maintain feet together eyes closed > 8 seconds indicating improved balance. Pt will benefit from skilled PT for 2x/week from 04/10/2024 to 06/19/2024 to address the above impairments. I hereby deem this POC medically necessary. Please sign below. Date: documented in this encounterCrittenton Behavioral [id number] History of Present illness Narrative* Ilene Cha PT - 05/01/2024 2:30 PM EDT Physical Therapy Treatment Visit Patient Name: Ceci Spears Today's Date: 05/01/2024 Encounter Diagnoses Name Primary? Weakness of both lower extremities Yes Visit number: 7 Timed Code Treatment Minutes: 41 minutes Total Treatment Time: 51 minutes Time In: 1430 Time Out: 1521 History: Pt states she has been having weakness in bilateral LE's ever since her knees were replaced. Pt states she falls all the time; looses her balance. Has a 4WW that she is using but states she is still falling. States she believes she has fallen about 20 times this year. Has 3 steps to enter/exit the home but does not try to do without someone else present. Precautions: FALLS, universal Subjective: Pt states she fell twice since last session. Speaking to her son, he states she did notwait for assistance on first fall when getting into truck. Son states 2nd episode, pt's foot slipped on foot stool but she was caught. RTD 05/23/24. Pain: 3/10 Objective: PT Evaluation (04/10/2024) Functional Mobility: Reflexes: 1+ bilateral patellar and ankle; biceps, 3+ brachioradialis, 2+ Triceps Gait: TUG with use of 4WW: 25.88 seconds and 20.53 seconds; Ten Meter Walk Test: 8.84 seconds with 4WW Stairs: not tested Strength: Five Time Sit to Stand with hands on knees: 17.67 seconds. Bilateral hips 3+/5, quads 4-/5, ankles 4/5 Balance: Feet together eyes open 15 seconds, feet together eyes closed 2 seconds Special Test: Negative Babinski, Clonus, and Hoffmans Treatment: Education: HEP education with demonstration, Educated on Eval Findings and POC Manual Therapy: Passive ROM, Joint mobilization, Soft Tissue Mobilization, Myofascial Release, Muscle Energy Technique, Neural Mobilization, Myofascial Cupping, Dry Needling, IASTM, and Scar mobilization as needed. Therapeutic Exercise: (41 minutes) Nustep 10 minutes for strengthening. Strength, Endurance, Flexibility, ROM, HEP, Neural Mobilization, Power, and Core Stability as needed. Exercises per grid to increase bilateral LE strength. Therapeutic Activity: Exercises to improve dynamic activities, functional tasks, functional mobility to return to prior activity level as needed. Neuromuscular re-education: (minutes) Balance Training, Muscle Facilitation, Dynamic Stability, Core Stabilization, and Blood Flow Restriction Training (BFRT) as needed. Modalities: Heat, Ice, Electrical Stimulation, Ultrasound, Cervical Mechanical Traction, Lumbar Mechanical Traction, Iontophoresis, and Fluidotherapy as needed. Assessment: Pt has completed 7 PT sessions for strength and balance. Decreased standing ex this date due to falls following last session. Increase sitting rest breaks given. Pt requires verbal cues for proper exercise form and education regarding purpose of sitting rest breaks. Outcome Measure: Lower Extremity Functional Scale (LEFS): Rehab Diagnosis: bilateral LE weakness; falls; unsteady gait Short Term Goal: To be met in 2 weeks Goal 1: Pt to be instructed in home exercise program. Intermediate Goals: To be met in 10 weeks Goal 1: Pt to report independence and compliance with home program. Goal 2: Pt to complete TUG in less than 14.0 seconds indicating improved gait and mobility. Goal 3: Pt to complete Five Sit to Stands in less than 12.0 seconds with hands on knees indicating improved functional strength of LE's. Goal 4: Pt to score no less than 40/80 on LEFS indicating improved QOL. Goal 5: Pt to complete Ten Meter Walk Test in less than 6.0 seconds with 4WW indicating improved gait. Goal 6: Pt to maintain feet together eyes closed > 8 seconds indicating improved balance. Pt will benefit from skilled PT for 2x/week from 04/10/2024 to 06/19/2024 to address the above impairments. I hereby deem this POC medically necessary. Please sign below. Date: documented in this encounterCrittenton Behavioral [id number] History of Present illness Narrative* Ilene Cha PT - 04/18/2024 1:00 PM EDT Physical Therapy Treatment Visit Patient Name: Ceci Spears Today's Date: 04/18/2024 Encounter Diagnoses Name Primary? Weakness of both lower extremities Yes Visit number: 4 Timed Code Treatment Minutes: 42 minutes Total Treatment Time: 42 minutes Time In: 1300 Time Out: 1344 History: Pt states she has been having weakness in bilateral LE's ever since her knees were replaced. Pt states she falls all the time; looses her balance. Has a 4WW that she is using but states she is still falling. States she believes she has fallen about 20 times this year. Has 3 steps to enter/exit the home but does not try to do without someone else present. Precautions: FALLS, universal Subjective: Pt with no complaints following last session. No complaints of pain this afternoon. States will RTD 05/23/24. Pain: 3/10 Objective: PT Evaluation (04/10/2024) Functional Mobility: Reflexes: 1+ bilateral patellar and ankle; biceps, 3+ brachioradialis, 2+ Triceps Gait: TUG with use of 4WW: 25.88 seconds and 20.53 seconds; Ten Meter Walk Test: 8.84 seconds with 4WW Stairs: not tested Strength: Five Time Sit to Stand with hands on knees: 17.67 seconds. Bilateral hips 3+/5, quads 4-/5, ankles 4/5 Balance: Feet together eyes open 15 seconds, feet together eyes closed 2 seconds Special Test: Negative Babinski, Clonus, and Hoffmans Treatment: Education: HEP education with demonstration, Educated on Eval Findings and POC Manual Therapy: Passive ROM, Joint mobilization, Soft Tissue Mobilization, Myofascial Release, Muscle Energy Technique, Neural Mobilization, Myofascial Cupping, Dry Needling, IASTM, and Scar mobilization as needed. Therapeutic Exercise: (32 minutes) Nustep 10 minutes for strengthening. Strength, Endurance, Flexibility, ROM, HEP, Neural Mobilization, Power, and Core Stability as needed. Therapeutic Activity: Exercises to improve dynamic activities, functional tasks, functional mobility to return to prior activity level as needed. Neuromuscular re-education: (10 minutes) Balance Training, Muscle Facilitation, Dynamic Stability, Core Stabilization, and Blood Flow Restriction Training (BFRT) as needed. Modalities: Heat, Ice, Electrical Stimulation, Ultrasound, Cervical Mechanical Traction, Lumbar Mechanical Traction, Iontophoresis, and Fluidotherapy as needed. Assessment: Pt has completed 4 PT sessions for strength and balance. Pt with posterior LOB noted with step sups and sit to stands this date; required mod A to avoid falling. LE fatigue noted with increase standing ex this date. Will continue to progress as pt tolerates. Outcome Measure: Lower Extremity Functional Scale (LEFS): 25/80 Rehab Diagnosis: bilateral LE weakness; falls; unsteady gait Short Term Goal: To be met in 2 weeks Goal 1: Pt to be instructed in home exercise program. Intermediate Goals: To be met in 10 weeks Goal 1: Pt to report independence and compliance with home program. Goal 2: Pt to complete TUG in less than 14.0 seconds indicating improved gait and mobility. Goal 3: Pt to complete Five Sit to Stands in less than 12.0 seconds with hands on knees indicating improved functional strength of LE's. Goal 4: Pt to score no less than 40/80 on LEFS indicating improved QOL. Goal 5: Pt to complete Ten Meter Walk Test in less than 6.0 seconds with 4WW indicating improved gait. Goal 6: Pt to maintain feet together eyes closed > 8 seconds indicating improved balance. Pt will benefit from skilled PT for 2x/week from 04/10/2024 to 06/19/2024 to address the above impairments. I hereby deem this POC medically necessary. Please sign below. Date: documented in this encounterCrittenton Behavioral [id number] Evaluation note* Encounter Date Diagnosis Assessment Notes Treatment Notes Treatment Clinical Notes Apr, Hypercalcemia (ICD-1 0 - E83.52) Added PTH and faxed to [facility] lab - add onto lab drawn Apr, Hypothyroidism (acquired) (ICD-10 - E03.9) Apr, Essential hypertension (ICD-10 - I10) Apr, Other Other labs reviewed w pt - gave copies to pt and explained overall normal results. Continue present medications. [facility] Other 08-31-2023 Evaluation note* Encounter Date Diagnosis [...] continue to monitor through routine blood work [facility] Other 06-26-2023 Evaluation note* Encounter Date Diagnosis Assessment Notes Treatment Notes Treatment Clinical Notes Jan, Bilateral hearing loss, unspecified hearing loss type (ICD-10 - H91.93) Jan, Middle ear effusion, bilateral (ICD-10 - H65.93) [facility] Other 04-18-2023 NoteCRM entered the room to discuss dc planning. PCP, DME and insurance discussed. Patient is alert andinvolved in plan of care. Contact information provided and whiteboard updated. Pt will dc with [facility], she has a FWW from home. No further needs. ANt dc today.[facility] RehabilitationComment on above:Result Comment: Electronically Signed By: Cheri Doan\.br\Date and Time Signed: 12/14/22 09:50 [id number] NotePatient: CECI SPEARS Age: 67 years Sex: [...] Stable course. D/C home with [facility]. [place] out POD#21. F/U in 4 weeks. [facility] RehabilitationComment on above:Result Comment: Electronically Signed By: Gwyn [...] recommendations to be given on POD # 1[facility]04-10-2023 Note [id number]:127[facility] 10-14-2022 Evaluation note* Encounter Date Diagnosis Assessment Notes Treatment Notes Treatment Clinical Notes Sep, Depression with anxiety (ICD-10 - F41.8) [facility] Other 01-19-2023 Evaluation note* Encounter Date Diagnosis Assessment Notes Treatment Notes Treatment Clinical Notes Aug, Depression with anxiety (ICD-10 - F41.8) Aug, Essential hypertension (ICD-10 - I10) continue metoprolol at this time Aug, BMI 40.0-44.9, adult (ICD-10 - Z68.41) Encouraged patient to continue to watch their diet and increase exercise regimen. [facility] Other 01-03-2023 Evaluation + Plan noteExtracted from: Title:Discharge Summary * Author:Chon Garcia DO Date:08/31/22 Discharge Information Discharge Summary Information: [...] course. reg diet. Mepilex chnage 10 days. [place] out POD#14. F/U in 4 weeks. Extracted [...] Recovery Room in stable and satisfactory condition.. [facility]01-03-2023 NotePatient: CECI SPEARS Age: 67 years Sex: [...] course. reg diet. Mepilex chnage 10 days. [place] out POD#14. F/U in 4 weeks.[facility] RehabilitationComment on above:Result Comment: Electronically Signed By: Gwyn [...] standing. 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 It is therefore advised not to drive until after yourfirst office visit following surgery FOLLOW-UP OFFICE VISIT: Gwyn Garcia, DO [facility] [address] [place] [id number] Reviewed: 12-04 Follow Up Care 07/12/2022 08:53:18 With:Gwyn Garcia Address: [address] [place] [phone]- Business (1) When:09/29/2022 09:30:00 Comments:Keep scheduled appointment With:CAMILLE WILLIAMSON Address: [address] [place] [id number]- Business (1) When:09/03/2022 09:00:00 [facility]12-28-2022 Note [id number]:127[facility] Evaluation noteNo InformationNogeneral [facility] [employer] Other Evaluation noteNo assessment information available [facility] Work Phone: Evaluation note* Diagnosis Onset Date Resolution Status Elevated glucose acute Essential hypertension acute Hypothyroidism (acquired) ac knik [facility] Work Phone: Evaluation note* Diagnosis Weakness of both lower extremities- Primary [facility] encounter [facility]* Diagnosis Weakness of both lower extremities- Primary [facility]* Diagnosis Onset Date Resolution Status Elevated glucose acute Essential hypertension acute Hypothyroidism (acquired) ac knik Impairment of balance acute [facility] Work Phone: Evaluation note* Diagnosis [...] Diagnosis Weakness of both lower extremities- Primary Idiopathic peripheral neuropathy Unspecified hereditary and idiopathic peripheral neuropathy Ataxia Lack of coordination Paresthesias Disturbance of skin sensation Debility Unspecified debility [facility]* Diagnosis Weakness of both lower extremities- Primary [facility]* Diagnosis Onset Date Resolution Status Admit Date Vaginal bleeding, abnormal acute September 24, 2024 2:07pm [facility] Work Phone: Evaluation note* Diagnosis PMB (postmenopausal bleeding)- Primary Postmenopausal bleeding Screening for malignant neoplasm of cervix Screening for malignant neoplasm of the cervix Encounter for screening for human papillomavirus (HPV) Intertriginous candidiasis Obesity, morbid (CMS/HCC) Morbid obesity Post-menopause Asymptomatic postmenopausal status (age-related) (natural) Abnormal uterine bleeding Unspecified disorder of menstruation and other abnormal bleeding from female genital tract documented in this encounter [facility] HealthcareEvaluation note* Diagnosis Sensorineural hearing loss, bilateral- Primary Dizziness Dizziness and giddiness documented in this encounter [facility] HealthcareEvaluation note* Diagnosis Impaired proprioception- Primary documented in this encounter [facility] HealthcareEvaluation note* Diagnosis History of left knee replacement- Primary History of total right knee replacement documented in this encounter [facility] HealthcareHistory general Narrative - Reported* Type Description Date [...] TRK 08/29/2022 Hospitalization History SEE SURGICAL HX [facility] Other History general Narrative - Reported* Type Description [...] TLK 11/2022 Hospitalization History SEE SURGICAL HX [facility] Other Hospital course Narrative No data available for this section [facility] No data available for this section [facility]Reason for referral (narrative)No reason for referral information available[facility] Work Phone: Summary Purpose Family History Relationship Condition Age at Onset Recorded Date/T john father Unknown Malignant neoplasm Unknown Advance Directives Advance Directive Response Recorded Date/ Time Advance Directives No January 09 12:21pm Advance Directive Response Recorded Date/ Time Advance Directives No January 09 11:21am Reason for Referral Reason Previously seen ther e - had PE tubes - Has a hearing test scanned into chart. Diagnosis 1 Bilateral hearing lo ss, unspecified hearing loss type (H91.93) Referral Organization [facility] linanjelica Referring Provider First Name Camille Referring Provider Last Name Clay Referring Provider Specialty Family Medi cine Referred Organization [facility] Referred Provider Heath Monroy Referred Address ,[place], [place],[address] Referred Provider Specialty Otolaryngolo gy Referral Priority Routine Chief Complaint and Reason for Visit Chief Complaint Amb Documentation Ear complaints Reason for Visit Elevated glucose Essential hypertension Hypothyroidism (acquired) Chief Complaint Trouble Walking Reason for Visit Elevated glucose Essential hypertension Hypothyroidism (acquired) Impairment of balance Chief Complaint Admit Date feeling unwell September 24, 2024 2 :07pm Reason for Visit Admit Date Vaginal bleeding, abnormal September 24, 2024 2:07pm Chief Complaint Admit Date Rash all over February 14, 2025 2:27 pm follow up on lack of walking March 07, 2025 3:03pm Reason for Visit Admit Date Contact dermatitis due to soap January 2:27pm Chief Complaint Admit Date Rash all over February 14, 2025 2:27 pm follow up on lack of walking March 07, 2025 3:03pm Wellness May 01, 2025 11:20am Reason for Visit Admit Date Contact dermatitis due to soap January 2:27pm Impairment of balance March 07, 2025 3: 03pm Weakness March 07, 2025 3:03 pm Essential hypertension May 01 11:20am Hypothyroidism (acquired) May 01, 2025 11:20am Wellness examination May 01, 2025 11:20am Chief Complaint Admit Date follow up on lack of walking March 07, 2025 3:03pm Wellness May 01, 2025 11:20am Memory issues May 23, 2025 1:25pm Reason for Visit Admit Date Impairment of balance March 07, 2025 3: 03pm Weakness March 07, 2025 3:03 pm Breast cancer screening declined Septemb 2024 11:20am Essential hypertension May 01 11:20am Hypothyroidism (acquired) May 01, 2025 11:20am Wellness examination May 01, 2025 11:20am Additional Source Comments INFORMATION SOURCE (unrecogn ized section and content) DATE CREATED AUTHOR 05/30/2022 [facility] [facility] DATE CREATED AUTHOR AUTHOR'S ORGANIZ ATION 12/20/2022 [facility] DATE CREATED AUTHOR AUTHOR'S ORGANIZ ATION 11/12/2024 [facility] DATE CREATED AUTHOR AUTHOR'S ORGANIZ ATION 04/01/2025 [facility] EPIC Patient Care team informatio n (unrecognized section and content) Team Status: Active Member Role Status Dates Camille Williamson MD Primary Care Provider Active Team Status: Inactive Member Role Status Dates Camille Williamson MD Primary Care Provider Active Start: February 14, 2025 End: February 14, 2025 Camille Williamson MD Attending Provider Active St art: February 14, 2025 End: February 14, 2025 Team Status: Inactive Member Role Status Dates Camille Williamson MD Primary Care Provider Active Start: March 07, 2025 End: March 07, 2025 Camille Williamson MD Attending Provider Active St art: March 07, 2025 End: March 07, 2025 Team Status: Active Member Role Status Dates [...] May 22, 2024 End: May 22, 2024 Fiber Product Cutting Machine Operator Relationship Specialty Start Date End Date Camille Williamson MD [address] [facility] [place] [id number] PCP - General Family Medicine 03/10/23 [employer] Cutting Machine Operator Relationship Specialty Start Date End Date Camille Williamson MD [address] [place] [facility] [address] PCP - General Family Medicine 03/10/23 [employer] Product Cutting Machine Operator Relationship Specialty Start Date End Date Camille Williamson MD [address] [place] [facility] [id number] PCP - General Family Medicine 03/10/23 Fiber Product Cutting Machine Operator Relationship Specialty Start Date End Date Camille Williamson MD [address] [place] [facility] [address] PCP - General Family Medicine 03/10/23 Team Status: Inactive Member Role Status Dates Camille Williamson MD Primary Care Provide r, Attending Provider Active Start: June 05, 2024 End: June 05, 2024 Fiber Product Cutting Machine Operator Relationship Specialty Start Date End Date Camille Williamson MD [address] [place] [facility] [phone] PCP - General Family Medicine 03/10/23 Fiber Product Cutting Machine Operator Relationship Specialty Start Date End Date Camille Williamson MD [address] [place] [facility] [phone] PCP - General Family Medicine 03/10/23 Fiber Product Cutting Machine Operator Relationship Specialty Start Date End Date Camille Williamson MD [address] [place] [facility] [address] PCP - General Family Medicine 03/10/23 Fiber Product Cutting Machine Operator Relationship Specialty Start Date End Date Camille Williamson MD [address] [place] [facility] [address] PCP - General Family Medicine 03/10/23 Fiber Product Cutting Machine Operator Relationship Specialty Start Date End Date Camille Williamson MD [address] [facility] [place] [address] PCP - General Family Medicine 03/10/23 Fiber Product Cutting Machine Operator Relationship Specialty Start Date End Date Camilel Williamson MD [address] [facility] [place] [address] PCP - General Family Medicine 03/10/23 Fiber Product Cutting Machine Operator Relationship Specialty Start Date End Date Camille Williamson MD [address] [facility] [place] [address] PCP - General Family Medicine 03/10/23 Fiber Product Cutting Machine Operator Relationship Specialty Start Date End Date Camille Wliliamson MD [address] [facility] [place] [address] PCP - General Family Medicine 03/10/23 Fiber Product Cutting Machine Operator Relationship Specialty Start Date End Date Camille Williamson MD [address] [facility] [place] [address] PCP - General Family Medicine 03/10/23 Fiber Product Cutting Machine Operator Relationship Specialty Start Date End Date Camille Williamson MD [address] [facility] [place] [address] PCP - General Family Medicine 03/10/23 Fiber Product Cutting Machine Operator Relationship Specialty Start Date End Date Camille Williamson MD [address] [facility] [place] [address] PCP - General Family Medicine 03/10/23 Fiber Product Cutting Machine Operator Relationship Specialty Start Date End Date Camille Williamson MD [address] [place] [facility] [address] PCP - General Family Medicine 03/10/23 Fiber Product Cutting Machine Operator Relationship Specialty Start Date End Date Camille Williamson MD [address] [place] [facility] [address] PCP - General Family Medicine 03/10/23 Fiber Product Cutting Machine Operator Relationship Specialty Start Date End Date Camille Williamson MD [address] [place] [facility] [phone] PCP - General Family Medicine 03/10/23 Team Status: Active Member Role Status Dates Camille Williamson MD Primary Care Provide r, Attending Provider Active Start: July 27, 2024 Team Status: Inactive Member Role Status Dates Camille Williamson MD Primary Care Provide r, Attending Provider Active Start: September 24, 2024 End: September 24, 2024 Fiber Product Cutting Machine Operator Relationship Specialty Start Date End Date Camille Williamson MD [address] [place] [facility] [address] PCP - General Family Medicine 03/10/23 Fiber Product Cutting Machine Operator Relationship Specialty Start Date End Date Camille Williamson MD [address] [place] [facility] [address] PCP - General Family Medicine 02/04/25 Fiber Product Cutting Machine Operator Relationship Specialty Start Date End Date Camille Williamson MD [address] [place] [facility] [address] PCP - General Family Medicine 02/04/25 Fiber Product Cutting Machine Operator Relationship Specialty Start Date End Date Camille Williamson MD [address] [place] [facility] [address] PCP - General Family Medicine 02/04/25 Fiber Product Cutting Machine Operator Relationship Specialty Start Date End Date Camille Williamson MD [address] [place] [facility] [address] PCP - General Family Medicine 02/04/25 Fiber Product Cutting Machine Operator Relationship Specialty Start Date End Date Camille Williamson MD [address] [place] [facility] [address] PCP - General Family Medicine 02/04/25 Team Status: Inactive Member Role Status Dates Camille Williamson MD Primary Care Provider Active Start: May 01, 2025 End: May 01, 2025 Camille Williamson MD Attending Provider Active St art: May 01, 2025 End: May 01, 2025 Team Status: Inactive Member Role Status Dates Camille Williamson MD Primary Care Provider Active Start: May 23, 2025 End: May 23, 2025 Camille Williamson MD Attending Provider Active St art: May 23, 2025 End: May 23, 2025 REASON FOR VISIT (unrecogniz ed section and content) Reason Comments Follow-up RTKA 08/30/22 Follow-up LTKA 12/13/22 Reason Comments Imbalance Last seen in 2022 fo r hearing loss / patient keeps falling Reason Comments sick visit New patient referred by Dr. Camille Williamson for PMB. Patient reports that she noticed bright red blood in the beginning of 04/2024 that has been intermittent. She noticed another episode of bright bleeding on 10/01/24 until the end of September. Reports she seen 2 blood clot the first week of September. Denies bleeding today. Urine sample collected. Last pap long time ago. Reason Comments Extremity Weakness balance difficulty Specialty Diagnoses / Procedures Referred By Ian sears Referred To Contact Physical Therapy Diagnoses Weakness of both lower extremities Procedures MA OFFICE/OUTPATIENT NEW HIGH MDM 60 MINUTES Princess Brown DO [address] [place] [address] Ilene Cha, PT Referral ID Status Reason Start Date Expiration Date Visits Requested Visits Authorized [id number] Authorized Consult and Treat 03/27/2024 09/23/2024 25 [...] BE BASED ON THE PRIMARY CLINICAL RECORDS. [facility] [employer] [facility]. provides no warranty or guarantee of the accuracy or completeness of information in this document.
[2025-05-24 09:51] LABS: Alanine Aminotransferase 14 U/L (14-59); Albumin Globulin Ratio 1.0; Albumin Level 3.9 g/dL (3.4-5.0); Alkaline Phosphatase 68 U/L (46-116); Anion Gap 12.1; Aspartate Amino Transferase 13 U/L (15-37); Blood Urea Nitrogen 14.0 mg/dL (7.0-18.0); Calcium 9.5 mg/dL (8.5-10.1); Carbon Dioxide 26.2 mmol/L (21.0-32.0); Chloride 104 mmol/L (98-107); Cholesterol 195 mg/dL (<=200); Estimated GFR (African America >60 (>=60 mL/min/1.73m^2); Estimated GFR (Non-African Ame >60 (>=60 mL/min/1.73m^2); Globulin 3.8 g/dL; Glucose 112 mg/dL (74-106); HDL Cholesterol 48 mg/dL (40-60); Potassium 4.3 mmol/L (3.5-5.1); Sodium 138 mmol/L (136-145); Thyroid Stimulating Hormone 0.513 uIU/mL (0.358-3.740); Total Protein 7.7 g/dL (6.4-8.2); Triglycerides 162 mg/dL (<=150); VLDL CHOLESTEROL 32.4 mg/dL
[2025-05-24 10:21] LABS: Hematocrit 50.3 % (36.0-48.0); Hemoglobin 16.8 g/dL (12.0-16.0); Immature Granulocytes Abs Auto 0.01 10^3/uL (0.00-0.03); Immature Granulocytes Pct Auto 0.2 % (0.0-0.5); Lymphocytes Absolute Auto 0.8 10^3/uL (1.2-3.8); Mean Corpuscular HGB Conc 33.4 g/dL (29.9-35.2); Mean Corpuscular Hemoglobin 29.0 pg (26.7-34.0); Mean Corpuscular Volume 86.9 fL (81.0-99.0); Platelet Count 207 10^3/uL (150-450); Red Blood Count 5.79 10^6/uL (4.20-5.40); White Blood Count 4.4 10^3/uL (4.0-11.0)
== END 2025-05-24 08:57 | disposition home or self-care (01) ==
LOC: LAB 08:56
PROVIDERS: PCP Family Medicine; Visit Provider Family Medicine
DX: Z00.00 Encounter for general adult medical examination without abnormal findings (principal); I10 Essential (primary) hypertension; E03.9 Hypothyroidism, unspecified
CPT/HCPCS: 36415; 80053; 80061; 84439; 84443; 85025